=== PATIENT | male | born 1950 | race Caucasian/White ===

== ENCOUNTER → 2018-03-14 11:16 | Outpatient (CLI) | payer OTHER, SELFPAY ==
[2018-03-12 12:58] VITALS: BMI 31.8
--- NOTE | 2018-03-14 12:35 | NEURO ---
NCS and/or EMG Patient Report Ordering Doctor: Leticia Taveras DATE OF SERVICE: 03/14/18 Bethany Torrez is a 68-year-old male who presents for electrodiagnostic testing of the right upper limb. He has neck pain radiating into the right upper limb with numbness in the hand. Electrodiagnostic findings: The right median motor nerve demonstrates prolonged distal latency with normal amplitude and reduced conduction velocity. Right ulnar motor nerve demonstrates normal distal latency and amplitude with reduced conduction across the elbow. Prolonged right median and right ulnar F wave. Prolonged right median sensory latency at the wrist. On needle EMG, the right triceps demonstrate decreased recruitment with the presence of polyphasic motor unit action potentials. No evidence of fibrillations is noted. Testing was technically difficult as the patient had numerous involuntary muscle twitches secondary to his Parkinson's disease. Electrodiagnostic impression: This is an abnormal study in the right upper limb. 1. Electrodiagnostic findings demonstrate right median mononeuropathy. This is consistent with a moderate right carpal tunnel syndrome. 2. Electrodiagnostic findings demonstrate right-sided ulnar neuropathy. This is consistent with a right cubital tunnel syndrome, with a greater than 30% drop in conduction velocity across the elbow. 3. Electrodiagnostic findings demonstrate a chronic right C7 radiculopathy. Clinically, there is muscle atrophy in the right triceps. If there are any further questions, please do not hesitate to contact me.
== END ==
PROVIDERS: Family Provider Family Medicine; PCP Family Medicine; Referring Provider Orthopaedic Surgery; Visit Provider Orthopaedic Surgery
DX: M54.12 Radiculopathy, cervical region (principal)
CPT/HCPCS: 95886; 95910

== ENCOUNTER → 2018-05-08 16:08 | Outpatient (CLI) | payer OTHER, SELFPAY ==
[2018-05-08 15:19] VITALS: BMI 31.8
--- NOTE | 2018-05-08 16:09 | RAD_ITS ---
STUDY: X-RAY - CERVICAL SPINE REASON FOR EXAM: Male, 68 years old. Pain. TECHNIQUE: 5 view(s) of the cervical spine were obtained. COMPARISON: January 26, 2016. FINDINGS: There are degenerative changes of the anterior atlantoaxial articulation. Normal odontoid process. Normal cervical lordosis. There is multi-level endplate spondylosis. There is multi-level degenerative disc disease with multilevel disc space narrowing. There is no evidence of acute fracture or loss of vertebral axial height. There is maintenance of normal alignment. There is no change in alignment with flexion or extension. The soft tissue structures are unremarkable. RAD/Cerv Spine 4 or 5 Views IMPRESSION: Degenerative changes of the cervical spine without fracture or subluxation. There is no evidence of vertebral instability. There is no major interval change. Electronically Signed: Luis Daniel Oreilly DO at 10:41 EDT Tel [phone], Service support ,
== END ==
PROVIDERS: Family Provider Family Medicine; PCP Family Medicine; Referring Provider Orthopaedic Surgery; Visit Provider Orthopaedic Surgery
DX: M54.12 Radiculopathy, cervical region (principal)
CPT/HCPCS: 72050

== ENCOUNTER 2020-03-09 18:40 | Emergency (ER) | payer OTHER, SELFPAY ==
[2018-06-26 15:08] VITALS: BMI 31.8
[2020-03-09 18:40] VITALS: RESP 18
[2020-03-09 18:41] VITALS: BP 176/119; PULSE 99; RESP 18; TEMP 35.3; O2SAT 99; BMI 32.0
--- NOTE | 2020-03-09 18:55 | ED.DCSUM_ITS ---
History of Present Illness Chief Complaint: Disclocation Narrative: This patient is a 70-year-old male who presents with right shoulder pain. He tripped over a snow plow. He fell onto his right elbow and felt a pop in his right shoulder. He has no pain except at the right shoulder. He did not hit his head no loss of consciousness no injury to the chest abdomen back or other extremities. He otherwise denies any recent illness. No prior history of dislocation. Past Medical History - Allergies and Home Meds Allergies/Adverse Reactions: Allergies No Known Allergies Allergy (Verified 05/08/18 15:19) Primary Care Physician: Isaac Hodge DO [COURTESY STAFF PHYSICIAN] - Past Medical History: - - Diabetes, hypertension, hyperlipidemia, Parkinson's disease Smoking Status: Never smoker Review of Systems All systems negative except as indicated General: Denies: Fever Eyes: Denies: Visual changes - bilaterally ENT: Denies: Bilateral ear pain Cardiovascular: Denies: Chest pain Respiratory: Denies: Dyspnea Gastrointestinal: Denies: Nausea, Vomiting, Diarrhea Musculoskeletal: Reports: Extremity Pain Skin: Denies: Rash Neurological: Denies: Headache Hematologic: Denies: Easy bleeding Allergy: Denies: Uticaria Physical Exam Vital Signs/Narrative: Vital Signs Temp Pulse Resp BP Pulse Ox 03/09/20 18:41 95.6 F L 99 18 176/119 H 99 03/09/20 18:40 18 Inital Vital Signs reviewed: Yes General: Well nourished Head: Normocephalic Eyes: EOMI ENT: Moist mucous membranes Neck: Supple Cardiovascular: Regular rate, Regular rhythm Respiratory: No distress, CTA bilaterally Abdomen: Soft, Nontender Extremities: - - Limited painful range of motion of the right shoulder no tenderness along clavicle no tenderness of the right elbow wrist or hand with active full range of motion of the elbow wrist and hand, active full range of motion of the left upper and bilateral lower extremities without pain Skin: Normal color Neurological: Alert, Oriented x3, - - No focal or lateralizing neurological deficit Psychological: Normal affect Diagnostic/Tx/Re-eval Impressions Shoulder X-Ray 03/09/20 19:10 IMPRESSION: Degenerative changes. No acute fracture or dislocation Electronically Signed: Michi Marley MD at 19:56 EST , Service support , 03/09/20 19:10 Shoulder min 2 Views [RAD] Stat - Medical Decision Making 2+ view right shoulder x-ray was obtained. On my interpretation there is a possible acromion fracture. The AC joint appears normal. No shoulder dislocation. This was read by radiology as normal. Still concern for possible acromion injury. Patient was given a sling and referred to orthopedics. He was given a [place] here and a prescription for the same. He was advised on supportive care such as rest ice elevation. Patient understands to return for new or worsening symptoms. The patient was discharged. ED Disposition - Plan for ED Patient: Disposition: Home or Assisted Living Diagnosis: Fracture of acromion of scapula Instructions: ED Fracture, Shoulder Prescriptions: Hydrocodone Bitart/Apap 5-325 [[place] 5MG-325MG] 1 tab PO Q6H PRN PRN 3 Days #10 tab PRN Reason: Pain Prescription Printed Referrals: Isaac Hodge DO [COURTESY STAFF PHYSICIAN] - Rich Barajas DO [STAFF PHYSICIAN] -
--- NOTE | 2020-03-09 19:10 | RAD_ITS ---
STUDY: X-RAY - RIGHT SHOULDER REASON FOR EXAM: Male, 70 years old. POSSIBLE DISLOCATION AFTER TRIPPING OVER SNOW PLOW. TECHNIQUE: 2 view(s) of the shoulder. COMPARISON: None. FINDINGS: Narrowed glenohumeral articulation. Narrowed subacromial space . Narrowed acromioclavicular joint. Normal acromion. Normal humeral head and visualized proximal humerus. The soft tissue structures are unremarkable. Normal visualized pulmonary apex. RAD/Shoulder min 2 Views IMPRESSION: Degenerative changes. No acute fracture or dislocation Electronically Signed: Michi Marley MD at 19:56 EST , Service support ,
[2020-03-09] MEDS: HYDROcodone Bitartrate/Apap 5/325 Tablet PO (20:56)
== END 2020-03-09 20:59 | disposition home or self-care (01) ==
PROVIDERS: Emergency Provider Emergency Medicine; PCP Student in an Organized Health Care Education/Training Program
DX: S42.121A Displaced fracture of acromial process, right shoulder, initial encounter for closed fracture (principal); E11.9 Type 2 diabetes mellitus without complications; I10 Essential (primary) hypertension; E78.5 Hyperlipidemia, unspecified; G20 Parkinson's disease; W01.0XXA Fall on same level from slipping, tripping and stumbling without subsequent striking against object, initial encounter; Y93.89 Activity, other specified; Y92.89 Other specified places as the place of occurrence of the external cause; Y99.8 Other external cause status
CPT/HCPCS: 73030; 99285; A4216

== ENCOUNTER → 2020-05-14 17:30 | Outpatient (CLI) | payer OTHER, SELFPAY ==
--- NOTE | 2020-05-14 17:31 | CT_ITS ---
We are attempting to reach an attending provider to discuss findings. An addendum with communication details will be sent when the communication is complete. STUDY: CT RIGHT SHOULDER REASON FOR EXAM: Right shoulder pain, evaluate acromial fracture. TECHNIQUE: The patient was scanned in a multi detector CT scanner. High resolution transaxial imaging was performed without the administration of intravenous contrast material. Sagittal and coronal images were reconstructed. Individualized dose optimization techniques were used for this CT. COMPARISON: Radiographs 04/21/2020. FINDINGS: There is superior migration of the humeral head abutting the acromion (coronal reconstruction 53) consistent with rotator cuff pathology. Normal glenoid rim. Normal humeral head, neck and tuberosities. There is an osteolytic lesion in the posterior acromion (sagittal reconstructions 47-55) measuring approximately 1.8 cm in AP dimension with pathologic fracture (coronal reconstructions 59-63; sagittal reconstructions 45-49; axial images 8-10). There is also an os acromiale (axial images 8-10). Normal visualized lateral clavicle. There is mild acromioclavicular arthrosis (coronal reconstruction 31). There is a Type I morphology (flat undersurface), with a neutral orientation. There is a pleural-based mass in the lateral right hemithorax (axial images 96, 97), not fully included in the [id number] measuring 3.[address] AP dimension[address] CT/Extremity Upper without Contra IMPRESSION: Osteolytic lesion of the posterior acromion with pathologic fracture. Pleural-based mass in the right hemithorax. Os acromiale. Superior migration of the humeral head consistent with rotator cuff pathology. Mild acromioclavicular arthrosis. Electronically Signed: Michael Sanchez MD at 8:14 EDT Tel , Service support ,
== END ==
PROVIDERS: PCP Student in an Organized Health Care Education/Training Program; Referring Provider Orthopaedic Surgery; Visit Provider Orthopaedic Surgery
DX: S42.124A Nondisplaced fracture of acromial process, right shoulder, initial encounter for closed fracture (principal)
CPT/HCPCS: 73200

== ENCOUNTER → 2020-05-18 15:08 | Outpatient (CLI) | payer OTHER, SELFPAY ==
--- NOTE | 2020-05-18 15:11 | CT_ITS ---
STUDY: CT CHEST WITH CONTRAST REASON FOR EXAM: Male, 70 years old. mass RADIATION DOSAGE (If Supplied By Facility): CTDIvol = ( 29.27 ) mGy, DLP = ( 761.66 ) mGycm TECHNIQUE: Transaxial imaging was performed following intravenous administration of IV 100mL Isovue-300. Individualized dose optimization techniques were used for this CT. COMPARISON: None. FINDINGS: Grossly normal lung volumes. Mild elevation of the left hemidiaphragm. The pleural-based mass described on previous studies appears to be an anterolateral subpleural lipoma measuring approximately 4.1 x 3.9 x 4.3 cm. There is no underlying destructive process of the adjacent ribs. These tend to be of no clinical significance. Normal heart and pericardium. There are calcifications of the coronary arteries. Normal mediastinum. Normal hilar regions. Normal enhanced pulmonary arteries. There is atherosclerotic calcification of the aortic arch with tortuosity and elongation of the aortic arch and descending thoracic aorta. Normal osseous structures. There is no demonstrated abnormality of the visualized upper abdomen. 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 No evidence for acute chest disease. Electronically Signed: Spenser Mcbride MD at 16:18 EDT , Service support ,
[2020-05-18 15:35] LABS: CREATININE FINGERSTICK 1.2 mg/dL (0.70-1.30); EGFR FINGERSTICK > 60.0000 mL/min (>60)
== END ==
PROVIDERS: PCP Student in an Organized Health Care Education/Training Program; Referring Provider Orthopaedic Surgery; Visit Provider Orthopaedic Surgery
DX: S42.124A Nondisplaced fracture of acromial process, right shoulder, initial encounter for closed fracture (principal); R91.8 Other nonspecific abnormal finding of lung field; R93.7 Abnormal findings on diagnostic imaging of other parts of musculoskeletal system; R93.89 Abnormal findings on diagnostic imaging of other specified body structures
CPT/HCPCS: 71260; Q9967

== ENCOUNTER → 2020-06-05 15:12 | Outpatient (CLI) | payer OTHER, SELFPAY ==
--- NOTE | 2020-06-05 15:17 | MRI_ITS ---
STUDY: MRI RIGHT SHOULDER REASON FOR EXAM: Male, 70 years old. pain, lesion, F/U ABNORMAL CT TECHNIQUE: Standardized fat and water weighted pulse sequences were obtained in all 3 orthogonal planes. COMPARISON: CT of the right shoulder dated MAY 14, 2020. Right shoulder x-ray dated April 21, 2020. FINDINGS: Old fracture deformity posterior lateral aspect of the acromium marginated borders as well as some callus formation seen between the fracture fragments which are incompletely united. Mild reactive is present but there is no evidence to suggest an aggressive lytic or blastic process. No cortical erosion is seen to suggest active osteomyelitis. There are massive full-thickness tears of the supraspinatus, infraspinatus, and subscapularis tendons. The humeral head is high riding abutting the undersurface of the acromion. A large joint effusion is present with diffuse synovial liver infiltration. Diffuse enhancement of the synovium is seen on the postcontrast portion of the study. Enhancement of some of the inflamed fluid near the before meals articulation is also present. The long head of the biceps tendon is completely dislocated medially between the glenohumeral articulation and is partially torn. No bone marrow edema is seen in the humeral head or the glenoid. Normal teres minor tendon. There is severe muscular atrophy of the supraspinatus muscle. There is moderate muscular atrophy of the infraspinatus muscle. There is mild muscular atrophy of the subscapularis muscle. Normal teres minor muscle. Normal labrum. Normal capsulo- ligamentous complex. Normal rotator interval. There is moderate osteoarthritis of the acromioclavicular articulations. There is a Type II morphology (curved), with a neutral orientation. Normal visualized coracohumeral and coracoacromial ligaments. Normal quadrilateral space. Normal axillary space. Normal deltoid muscle. Normal trapezius muscle. MRI/Upper Ext Joint Only W/WO Cont IMPRESSION: 1. Massive rotator cuff tears with high riding humeral head abutting the undersurface of the acromion 2. Significant joint effusion 3. Old fracture deformity of the acromion 4. No aggressive process 5. Significant synovitis and inflammation of the joint. No evidence of septic arthritis. Electronically Signed: Everton Mitchell MD at 21:46 EDT , Service support ,
== END ==
PROVIDERS: PCP Student in an Organized Health Care Education/Training Program; Referring Provider Orthopaedic Surgery; Visit Provider Orthopaedic Surgery
DX: M75.91 Shoulder lesion, unspecified, right shoulder (principal); S42.124D Nondisplaced fracture of acromial process, right shoulder, subsequent encounter for fracture with routine healing
CPT/HCPCS: 73223; A9581

== ENCOUNTER → 2020-11-05 17:09 | Outpatient (CLI) | payer OTHER, SELFPAY ==
[2020-11-05 17:10] LABS: Bacteria 0 SEEN /hpf (None Seen); Mucous, Urine 0 SEEN /hpf (<or=2+); Red Blood Cells-Urine 0 SEEN /hpf (0-5); Squamous Epithelial Cells - UA 0 SEEN /hpf (0-5); White Blood Cells 0 SEEN /hpf (0-5)
[2020-11-05 17:44] LABS: Color, Urine Yellow (Yellow); Glucose, Dipstick 1000 mg/dl (Normal); Ketone-Dipstick Negative (Negative); Leukocyte Esterase-Dipstick Negative /ul (Negative); Nitrite-Dipstick Negative (Negative); Occult Blood-Urine Negative /ul (Negative); Protein-Dipstick 30 mg/dl (Negative); Urine Bilirubin Dipstick Negative (Negative); Urine Clarity Clear (Clear); Urine Urobilinogen Normal (Normal)
== END ==
PROVIDERS: PCP Student in an Organized Health Care Education/Training Program; Visit Provider Nurse Practitioner Adult Health
DX: R31.29 Other microscopic hematuria (principal)
CPT/HCPCS: 81001

== ENCOUNTER 2022-10-28 02:28 | Emergency (ER) | payer OTHER, SELFPAY ==
[2022-10-28 02:30] VITALS: BP 188/109; PULSE 76; RESP 20; TEMP 36.4; O2SAT 95; BMI 31.1
--- NOTE | 2022-10-28 02:39 | CT_ITS ---
EXAM: CT CERVICAL SPINE WITHOUT INTRAVENOUS CONTRAST CLINICAL INDICATION: pain, injury TECHNIQUE: Helically acquired images were obtained of the cervical spine without intravenous contrast. 2D reformatted images were reviewed. This CT exam was performed using one or more of the following dose reduction techniques: automated exposure control, adjustment of the mA and/or kV according to patient size, and/or use of iterative reconstruction technique. RADIATION DOSE: CTDIvol = 29.46 mGy, DLP = 645.55 mGy-cm COMPARISON: No relevant prior studies available. FINDINGS: VERTEBRAE: Unremarkable. No fracture. No traumatic subluxation. No discrete lytic or blastic abnormality. Normal alignment. Normal craniocervical junction and cervicothoracic junction. DISCS/SPINAL CANAL/NEURAL FORAMINA: Degenerative changes of the intervertebral discs. No critical stenosis. SOFT TISSUES: Unremarkable. No prevertebral soft tissue swelling. VASCULATURE: Carotid artery calcifications. LYMPH NODES: Unremarkable. No cervical adenopathy. LUNG APICES: Unremarkable as visualized. Clear. CT/Spine Cervical without Contras IMPRESSION: 1. No acute injuries identified involving the cervical spine. 2. Degenerative changes. Electronically Signed: Cam Schroeder MD at 3:32 EDT ,
--- NOTE | 2022-10-28 02:39 | RAD_ITS ---
EXAM: XR RIGHT SHOULDER COMPLETE, 2 OR MORE VIEWS CLINICAL INDICATION: acute on chronic pain, injury TECHNIQUE: Two or more views of the right shoulder. COMPARISON: Right shoulder 04/21/2020 and 04-05 FINDINGS: BONES/JOINTS: Moderate degenerative changes of the glenohumeral joint. Stable appearance of the acromion which may indicate a chronic nonhealed fracture or a normal variant os acromiale. No sclerotic or destructive changes observed. SOFT TISSUES: Unremarkable. No soft tissue swelling or gas. No radiopaque foreign body. RAD/Shoulder min 2 Views IMPRESSION: 1. Moderate degenerative changes of the glenohumeral joint. 2. Stable appearance of the acromion which may indicate a chronic nonhealed fracture or a normal variant os acromiale. Electronically Signed: Cam Schroeder MD at 4:10 EDT ,
--- NOTE | 2022-10-28 02:43 | EX.ED.UPPERE ---
HPI History of Present Illness Chief Complaint: Upper Extremity Injury Informant: patient and spouse/S.O. Narrative Narrative: Patient presents 2:30 AM for pain in the right shoulder and neck that are chronic but worse in the past 5 weeks since an accidental fall. He has Parkinson's. He has a chronic rotator cuff problem/injury in his right shoulder, but was deemed a poor surgical candidate because he has a chronic resting tremor in the right upper extremity. When asked why he presents this morning for this, he states because the pain has gradually gotten worse to the point where he is having trouble sleeping and dealing with it. He states he took a few hits off of someone's medical marijuana tonight because he was desperate for pain control. He has chronic kidney disease and so he has been limiting his ibuprofen intake even though it was helping when he was taking it. [facility] Medical History Diabetes Hypertension Parkinson disease Home Medications cyclobenzaprine 5 mg tablet 5 mg PO TID PRN 03/06/18 [History Last Taken Unknown] glimepiride 2 mg tablet 2 mg PO QAM 03/06/18 [History Last Taken Unknown] carbidopa 25 mg-levodopa 250 mg tablet tab PO 03/10/20 [History Last Taken Unknown] empagliflozin 10 mg tablet (Jardiance) 10 mg PO DAILY 03/10/20 [History Last Taken Unknown] glimepiride 4 mg tablet 4 mg PO DAILY 03/10/20 [History Last Taken Unknown] lisinopril 20 mg-hydrochlorothiazide 25 mg tablet tab PO 03/10/20 [History Last Taken Unknown] rosuvastatin 10 mg tablet 10 mg PO DAILY 03/10/20 [History Last Taken Unknown] tamsulosin 0.4 mg capsule cap PO 03/10/20 [History Last Taken Unknown] diphenhydramine HCl 25 mg tablet 25 mg PO QHS 05/07/20 [History Last Taken Unknown] hydrocodone-acetaminophen 5-325mg 5mg-325mg tablet PO 05/07/20 [History Last Taken Unknown] propranolol 60 mg tablet 60 mg PO BID 05/07/20 [History Last Taken Unknown] diazepam 2 mg tablet (Valium) 2 mg PO BID PRN anxiety #3 tabs 05/19/20 [Rx Last Taken Unknown] oxycodone-acetaminophen 5 mg-325 mg tablet 1 tab PO Q6H PRN PRN Pain 3 days #12 TABLETS 10/28/22 [Rx Last Taken Unknown] Allergy/AdvReac Type Severity Reaction Status Date / Time No Known Allergies Allergy Verified 10/28/22 02:35 Surgical History h/o appendectomy Social History Smoking Status: Never smoker ROS ROS ED Constitutional Constitutional ED: Denies chills or fever(s) Musculoskeletal Musculoskeletal: Reports extremity pain and neck pain Integumentary Denies Abrasions, rash or wounds Neurologic Neurologic: Reports tremor(s); Denies paresthesias or weakness EXAM Physical Exam Const Vital Signs: 10/28/22 02:30 Temperature 97.6 F L Temperature Source Temporal Pulse Rate 76 Respiratory Rate 20 H Blood Pressure 188/109 H Blood Pressure Mean 135 Pulse Ox 95 Oxygen Delivery Method Room Air Positive well nourished and well developed General Appearance ED: well developed and NAD Neck full ROM and supple Neck Narrative: Tender diffusely. No step-off. Full range of motion without apparent difficulty or pain. Back/Spine normal ROM and normal to inspection Extremity Extremity Narrative: Limited range of motion right shoulder due to pain. No deformities. No focal bony tenderness. No acromioclavicular joint tenderness. Tender in the trapezius cervical portion and into the area above the scapular spine. No signs of trauma objectively. Able to perform short arc internal and external rotation at the shoulder without any apparent major difficulty. Neuro oriented x3, no focal motor deficits and no sensory deficits noted Neuro Narrative: Resting tremor right upper extremity Sensorium / Orientation: alert Psych mental status grossly normal and thought process normal Skin no wounds Rashes: no rashes MDM MDM MDM Narrative Medical decision making narrative: Significant other is requesting imaging of his injuries. He went to [place] [facility] but did not have any imaging taken, and this is the second visit to any emergency department in the past [address] of the cervical spine was obtained, I reviewed the images and report which I agree with, negative for anything acute. 4 view x-ray series of the right shoulder does show chronic changes, no acute dislocation, there is a small calcification superolaterally about the greater tuberosity that could be a small old fracture versus calcification at the tendon insertion. Supportive care advised will be offered a sling in addition to analgesics which were given and prescribed. Radiography Diagnostic Testing: Clinical Impression(s) from Imaging Studies Cervical Spine CT 10/28/22 02:39 IMPRESSION: 1. No acute injuries identified involving the cervical spine. 2. Degenerative changes. Electronically Signed: Cam Schroeder MD at 3:32 EDT , Shoulder X-Ray 10/28/22 02:39 IMPRESSION: 1. Moderate degenerative changes of the glenohumeral joint. 2. Stable appearance of the acromion which may indicate a chronic nonhealed fracture or a normal variant os acromiale. Electronically Signed: Cam Schroeder MD at 4:10 EDT , Discharge Plan Triage Chief Complaint: Upper Extremity Injury ED Provider: Wang Nuñez Dx/Rx/DC Orders Clinical Impression: Chronic pain, Acute cervical myofascial strain, Acute pain of right shoulder due to trauma Instructions: ED Neck Sprain or Strain Prescriptions: New oxycodone-acetaminophen [oxycodone-acetaminophen] 5-325 mg tablet 1 tab PO Q6H PRN PRN (Reason: Pain) 3 Days Qty: 12 0RF No Action glimepiride 2 mg tablet 2 mg PO QAM cyclobenzaprine 5 mg tablet 5 mg PO TID PRN glimepiride 4 mg tablet 4 mg PO DAILY Patient Comments: TAKE 1 TABLET BY MOUTH EVERY DAY rosuvastatin 10 mg tablet 10 mg PO DAILY Patient Comments: TAKE 1 TABLET BY MOUTH EVERY DAY lisinopril-hydrochlorothiazide 20-25 mg tablet PO carbidopa-levodopa 25-250 mg tablet PO Jardiance 10 mg tablet 10 mg PO DAILY tamsulosin 0.4 mg capsule PO propranolol 60 mg tablet 60 mg PO BID hydrocodone-acetaminophen 5-325 mg tablet PO diphenhydramine HCl 25 mg tablet 25 mg PO QHS diazepam [Valium] 2 mg tablet 2 mg PO BID PRN (Reason: anxiety) Qty: 3 0RF Rx Instructions: Take 1 tablet 1 hour before MRI. Take another tablet 30 minutes before MRI. Primary Care Provider: Rich Foy Referrals: Rich Foy DO [Primary Care Provider] - 3-5 Days if not improving Disposition Disposition: Home, Self Care Discharge Date/Time: 10/28/22 04:54
[2022-10-28] MEDS: Morphine 4 MG/ML Syringe IM ×2 (02:46→03:52)
[2022-10-28] MEDS: Ondansetron ODT 4 MG Tablet 8 MG PO (02:46)
[2022-10-28] MEDS: Oxycodone/Apap 5/325 Tablet PO (03:52)
== END 2022-10-28 04:54 | disposition home or self-care (01) ==
PROVIDERS: Emergency Provider Emergency Medicine; PCP Student in an Organized Health Care Education/Training Program; Visit Provider Emergency Medicine
DX: S16.1XXA Strain of muscle, fascia and tendon at neck level, initial encounter (principal); G20 Parkinson's disease; E11.22 Type 2 diabetes mellitus with diabetic chronic kidney disease; I12.9 Hypertensive chronic kidney disease with stage 1 through stage 4 chronic kidney disease, or unspecified chronic kidney disease; N18.9 Chronic kidney disease, unspecified; G89.29 Other chronic pain; M25.511 Pain in right shoulder; W19.XXXA Unspecified fall, initial encounter
CPT/HCPCS: 72125; 73030; 96372; 99283

== ENCOUNTER 2022-11-09 10:41 | Emergency (ER) | payer OTHER, SELFPAY ==
[2022-11-09 10:44] VITALS: BP 74/63; PULSE 55; RESP 18; TEMP 36.2; O2SAT 95
--- NOTE | 2022-11-09 11:38 | CT_ITS ---
STUDY: CT BRAIN WITHOUT CONTRAST REASON FOR EXAM: Male, 72 years old. Confusion RADIATION DOSAGE (If Supplied By Facility): CTDIvol = ( 44.99 ) mGy, DLP = ( 863.60 ) mGycm TECHNIQUE: Transaxial CT imaging of the brain was performed without administration of intravenous contrast material. Individualized dose optimization techniques were used for this CT. COMPARISON: None. FINDINGS: Normal soft tissue structures. Normal calvarium. There is moderate cerebral atrophy with widening of the extra-axial spaces and ventricular dilatation. There are areas of decreased attenuation within the white matter tracts of the supratentorial brain, consistent with microvascular disease changes. Normal basal ganglia and thalami. Normal brainstem. Normal cerebellum. There is no intracranial hemorrhage. There are no findings of an acute ischemic infarction. Normal visualized paranasal sinuses. CT/Brain/Head without Contrast IMPRESSION: Chronic involutional changes of the brain. Electronically Signed: Evreton Mitchell MD at 13:22 EDT ,
--- NOTE | 2022-11-09 11:43 | NURSING ---
NO OLD EKG
[2022-11-09 11:52] VITALS: BP 117/74; PULSE 50; RESP 14; O2SAT 94
--- NOTE | 2022-11-09 11:55 | RAD_ITS ---
STUDY: X-RAY CHEST REASON FOR EXAM: Male, 72 years old. cough TECHNIQUE: Single AP portable view of the chest. COMPARISON: None. FINDINGS: There is a round nodular density in the lateral aspect of the right lower lobe measuring 3.86 that should be further evaluated with CT of the chest to determine if this is a mass or an area of round pneumonia/consolidation. The remaining visualized lung mckinley are clear. There is no demonstrated pleural abnormality. Normal size heart. Normal mediastinum and tommie. Normal visualized pulmonary arteries. There is atherosclerotic tortuosity of the aortic arch and descending thoracic aorta. There are diffuse degenerative changes of the visualized thoracic spine. Normal visualized ribs, clavicles, and shoulders. There is no demonstrated abnormality of the visualized soft tissue structures of the upper abdomen. RAD/Chest 1 View (Portable) IMPRESSION: 1. There is a round nodular density in the lateral aspect of the right lower lobe measuring 3.86 that should be further evaluated with CT of the chest to determine if this is a mass or an area of round pneumonia/consolidation. The remaining visualized lung mckinley are clear. Electronically Signed: Everton Mitchell MD at 12:50 EDT ,
--- NOTE | 2022-11-09 11:58 | EDS_ITS ---
HPI History of Present Illness Chief Complaint: Confusion Informant: patient and family Onset/Context/Timing Onset: Days Narrative Narrative: Patient presents with son for increasing confusion and hallucinations. Patient does have a history of Parkinson's and son states they have noticed some increasing memory problems. They have noted increased confusion over the last several days and last night was having some hallucinations which were new. Patient has not had any infectious symptoms. He is noted to be on multiple medications which can cause confusion. Patient is also currently staying with his son as his is out of town. Patient also was noted to have a fall 3 or 4 weeks ago where he struck his head. He was seen in the ER and had a CT scan following this injury and it was unremarkable. [facility] Medical History Diabetes Hypertension Parkinson disease Home Medications carbidopa 25 mg-levodopa 250 mg tablet 2 tab PO BID 03/10/20 [History Last Taken Unknown] empagliflozin 10 mg tablet (Jardiance) 10 mg PO DAILY 03/10/20 [History Last Taken Unknown] glimepiride 4 mg tablet 4 mg PO DAILY 03/10/20 [History Last Taken Unknown] lisinopril 20 mg-hydrochlorothiazide 25 mg tablet 1 tab PO DAILY 03/10/20 [His tory Last Taken Unknown] tamsulosin 0.4 mg capsule 0.4 mg PO Q24H 03/10/20 [History Last Taken Unknown] diphenhydramine HCl 25 mg tablet 25 mg PO QHS 05/07/20 [History Last Taken Unknown] propranolol 60 mg tablet 20 mg PO BID 05/07/20 [History Last Taken Unknown] amitriptyline 25 mg tablet 25 mg PO QHS 11/09/22 [History Last Taken Unknown] cholecalciferol (vitamin D3) 50 mcg (2,000 unit) tablet 50 mcg PO DAILY 11/09/22 [History Last Taken Unknown] empagliflozin 25 mg tablet (Jardiance) 25 mg PO DAILY 11/09/22 [History Last Taken Unknown] gabapentin 100 mg capsule 100 mg PO Q8H 11/09/22 [History Last Taken Unknown] pravastatin 20 mg tablet 20 mg PO DAILY 11/09/22 [History Last Taken Unknown] Allergy/AdvReac Type Severity Reaction Status Date / Time No Known Allergies Allergy Verified 10/28/22 02:35 Surgical History h/o appendectomy Social History Smoking Status: Never smoker ROS ROS ED Constitutional Constitutional ED: Denies chills or fever(s) Eyes Eyes: Denies discharge from eye(s) ENT ENT ED: Denies discharge from eye(s), rhinorrhea or sore throat Cardiovascular Cardiovascular: Denies chest pain or palpitations Respiratory/Chest Respiratory/Chest: Denies cough or dyspnea Gastrointestinal Gastrointestinal: Denies abdominal pain, nausea or vomiting Genitourinary Genitourinary ED: Denies dysuria Musculoskeletal Musculoskeletal: Denies back pain or extremity pain Integumentary Denies Abrasions or rash Neurologic Neurologic: Reports weakness; Denies headache(s) Allergic/Immunologic Allergic/Immunologic ED: Denies lip swelling or urticaria EXAM Physical Exam Const Vital Signs: 11/09/22 10:44 11/09/22 11:52 11/09/22 14:00 Temperature 97.1 F L Temperature Source Temporal Pulse Rate 55 L 50 L Respiratory Rate 18 14 Blood Pressure 74/63 L 117/74 123/62 H Blood Pressure Mean 66 88 81 Pulse Ox 95 94 Oxygen Delivery Method Room Air Room Air 11/09/22 14:10 11/09/22 14:30 Temperature Temperature Source Pulse Rate 52 L 58 L Respiratory Rate 16 21 H Blood Pressure 128/72 H Blood Pressure Mean 89 Pulse Ox 95 82 Oxygen Delivery Method Positive well nourished and well developed General Appearance ED: well developed HEENT Reports normocephalic and head/scalp atraumatic Eyes PERRL and EOMs intact bilaterally Neck supple Chest Wall inspection of chest normal and palpation of chest normal Resp normal respiratory effort and clear to auscultation bilaterally Cardio regular rate and regular rhythm GI non-tender Auscultation: hypoactive bowel sounds Palpation: soft Extremity normal to inspection Neuro Neuro Narrative: A&O x2. Right upper extremity tremor noted consistent with his Parkinson's history. Sensorium / Orientation: alert Psych mental status grossly normal Skin no rashes or lesions noted MDM MDM MDM Narrative Medical decision making narrative: Patient initially hypotensive in triage at 74/63, however in the room patient's blood pressure has been over 100 systolic. Patient placed on equipment monitor phototypesetting. IV fluids initiated. EKG obtained to evaluate for cardiac arrhythmia/ischemia. Labwork obtained to evaluate for leukocytosis, anemia, and electrolyte derangement. Urinalysis obtained to evaluate for infection/hematuria. CT scan of the head obtained to evaluate for any acute abnormality causing patient's change in mentation. History & Record Review Discussion w/independent historian: Patient and Family Lab Data Attestation: I reviewed the patient's lab results. Labs: Laboratory Results - last 24 hr 11/09/22 11/09/22 11:50 12:30 WBC 6.5 RBC 4.78 Hgb 15.1 Hct 46.4 MCV 97.1 H MCH 31.6 MCHC 32.5 RDW Std Deviation 40.1 RDW Coeff of Brant 11.2 L Plt Count 211 MPV 12.1 H Immature Gran % (Auto) 0.500 Neut % (Auto) 68.5 Lymph % (Auto) 14.2 L [place] % (Auto) 11.4 H Eos % (Auto) 4.8 Baso % (Auto) 0.6 Absolute Neuts (auto) 4.5 Absolute Lymphs (auto) 0.92 Nucleated RBC % 0 PT 13.6 INR 1.0 APTT 30.4 Sodium 140 Potassium 3.8 Chloride 103 Carbon Dioxide 33.0 H Anion Gap 4 L BUN 50 H Creatinine 1.50 H Est GFR (MDRD) Af Amer 59 L Est GFR (MDRD) Non-Af 49 L BUN/Creatinine Ratio 33.3 H Glucose 174 H Lactic Acid 1.3 Calcium 9.7 Total Bilirubin 0.80 Direct Bilirubin 0.22 AST 11 L ALT 10 L Alkaline Phosphatase 31 L Troponin I High Sens 6 Total Protein 7.4 Albumin 3.3 Globulin 4.1 Urine Color Yellow Urine Clarity Clear Urine pH 6.0 Ur Specific [place] 1.010 Urine Protein 30 H Urine Glucose (UA) 1000 H Urine Ketones Negative Urine Occult Blood Negative Urine Nitrite Negative Urine Bilirubin Negative Urine Urobilinogen Normal Ur Leukocyte Esterase Negative Urine RBC 0 SEEN Urine WBC 0 SEEN Ur Squamous Epith Cells 0 SEEN Urine Bacteria 0 SEEN Urine Mucus 0 SEEN Radiography Chest X-Ray - ED: 1 View, Read by ED Physician and Chronic Changes Diagnostic Testing: Clinical Impression(s) from Imaging Studies Brain CT 11/09/22 11:38 IMPRESSION: Chronic involutional changes of the brain. Electronically Signed: Everton Mitchell MD at 13:22 EDT Reading Location ID and State: [id number] [facility] , Service support , Chest X-Ray 11/09/22 11:55 IMPRESSION: 1. There is a round nodular density in the lateral aspect of the right lower lobe measuring 3.86 that should be further evaluated with CT of the chest to determine if this is a mass or an area of round pneumonia/consolidation. The remaining visualized lung mckinley are clear. Electronically Signed: Everton Mitchell MD at 12:50 EDT , Chest CT 11/09/22 12:56 IMPRESSION: 1. 3.74 x 2.49 cm fatty nodular lesion which appears to arise from the extrapleural intercostal fat region of the right lower lobe projects into the lateral aspect of the right upper lobe and middle one third region. Suspect focal herniation of extrapleural fat from prior trauma or similar entity. Refer to thoracic surgery for further assessment and evaluation. 2. No intraparenchymal nodules are present in either lung. 3. Small posterior pericardial effusion 4. Minor interstitial thickening/fibrosis is seen in the lung bases. The remaining bilateral lung mckinley are clear. Electronically Signed: Everton Mitchell MD at 14:35 EDT , EKG Initial EKG: Attestation: I personally reviewed and interpreted this EKG as follows: Interpretation: Sinus Bradycardia (Sinus bradycardia at 49 bpm. No acute ischemia.) Treatment and Re-Evaluation :: CBC reveals normal white count at 6.5 with normal hemoglobin of 15.1. No left shift. Chemistry studies reveal a creatinine of 1.50. I do not have prior values to compare to but son does report that he has some kidney problems. Glucose is 174. LFTs are unremarkable. Urinalysis does reveal some glucose but no evidence of acute infection. Portable chest x-ray does show a density in the right lateral chest per my interpretation. Radiology interpretation states this could be a mass or an infiltrate. CT of the chest is recommended. CT scan of the head reveals no acute abnormalities. CT of the chest reveals a fatty nodular lesion that arises from intercostal fat. No evidence of lung nodule, mass, or infiltrate noted. Test results are discussed with patient and son at bedside. Patient is on multiple medications that can cause confusion including amitriptyline, Benadryl, tramadol, and CBD Gummies. I recommended holding these medications to see if his mental status clears. At this time I do not see an infectious cause for his symptoms. Family was advised that if this does not improve his symptoms or they are not able to care for him at home they can return to the emergency room for repeat evaluation and possible admission for placement. Discharge Plan Triage Chief Complaint: Confusion ED Provider: Jeni Mccloud Dx/Rx/DC Orders Clinical Impression: Confusion Instructions: ED Confusion Prescriptions: No Action glimepiride 4 mg tablet 4 mg PO DAILY Patient Comments: TAKE 1 TABLET BY MOUTH EVERY DAY lisinopril-hydrochlorothiazide 20-25 mg tablet 1 tab PO DAILY carbidopa-levodopa 25-250 mg tablet 2 tab PO BID Jardiance 10 mg tablet 10 mg PO DAILY tamsulosin 0.4 mg capsule 0.4 mg PO Q24H propranolol 60 mg tablet 20 mg PO BID diphenhydramine HCl 25 mg tablet 25 mg PO QHS cholecalciferol (vitamin D3) 50 mcg (2,000 unit) tablet 50 mcg PO DAILY Patient Comments: TAKE 1 TABLET BY MOUTH EVERY DAY pravastatin 20 mg tablet 20 mg PO DAILY Patient Comments: TAKE 1 TABLET BY MOUTH EVERY OTHER DAY Jardiance 25 mg tablet 25 mg PO DAILY amitriptyline 25 mg tablet 25 mg PO QHS gabapentin 100 mg capsule 100 mg PO Q8H Patient Comments: TAKE 1 CAPSULE BY MOUTH TWICE A DAY Primary Care Provider: Rich Foy Referrals: Rich Foy DO [Primary Care Provider] - 3-5 Days Disposition Disposition: Home, Self Care
[2022-11-09] MEDS: 0.9% Normal Saline (500mL Bag) 500 ML 1000 ML IV (12:00)
[2022-11-09 12:22] LABS: Absolute Lymphocyte Count 0.92 X10^3/uL (0.83-4.51); Absolute Neutrophil Count 4.5 X10^3/uL (2.0-7.7); Basophil# 0.04 X10^3/uL; Basophil% 0.6 % (0-1); Eosinophil# 0.31 X10^3/uL; Eosinophils% 4.8 % (0-5); Hematocrit 46.4 % (40-54); Hemoglobin 15.1 g/dL (13.0-16.5); Lymphocyte # 0.92 X10^3/ul (0.83-4.51); Lymphocyte % 14.2 % (19-41); Mean Corp Hgb Conc 32.5 g/dL (32-36); Mean Corpuscular Hgb 31.6 pg (27.0-32.0); Mean Corpuscular Volume 97.1 fL (80-94); Mean Platelet Vol. 12.1 fl (6.2-12.0); Monocyte# 0.74 X10^3/uL; Monocyte% 11.4 % (0-10); NRBC Flagged by Analyzer 0 % (0-5); Neutrophil # 4.46 X10^3/uL (2.7-7.7); Neutrophil % 68.5 % (47-70); Platelet Count 211 K/mm3 (150-450); RBC Distribution Width CV 11.2 % (11.6-14.6); RBC Distribution Width SD 40.1 fl (35.1-43.9); Red Blood Count 4.78 M/mm3 (4.6-6.2); White Blood Count 6.5 K/mm3 (4.4-11.0)
[2022-11-09 12:27] LABS: Partial Thromboplast Time 30.4 Seconds (24.1-36.2); Prothrombin Time (Protime)PT. 13.6 SECONDS (11.7-14.9)
[2022-11-09 12:36] LABS: Bacteria 0 SEEN /hpf (None Seen); Mucous, Urine 0 SEEN /hpf (<or=2+); Red Blood Cells-Urine 0 SEEN /hpf (0-5); Squamous Epithelial Cells - UA 0 SEEN /hpf (0-5); White Blood Cells 0 SEEN /hpf (0-5)
[2022-11-09 12:42] LABS: AST(SGOT) 11 U/L (15-37); Alanine Aminotransfer ALT/SGPT 10 U/L (16-61); Albumin, Serum 3.3 g/dL (3.2-5.0); Alkaline Phosphatase 31 U/L (45-117); Anion Gap 4 (5-15); BUN 50 mg/dL (7-18); BUN/Creat Ratio 33.3 RATIO (10-20); Bilirubin, Direct 0.22 mg/dL (0.00-0.30); Calcium,Total 9.7 mg/dL (8.5-10.1); Chloride 103 mmol/L (98-107); EST Glomerular Filtration Rate 49 mL/min (>60); Est Glom Filt Rate - Afr Amer 59 mL/min (>60); Globulin 4.1 g/dL (2.2-4.2); Glucose 174 mg/dL (74-106); Potassium 3.8 mmol/L (3.5-5.1); Protein, Total 7.4 g/dL (6.4-8.2); Sodium Level 140 mmol/L (136-145); Troponin-I HS 6 pg/mL (3.0-78.0)
[2022-11-09 12:42] LABS: Glucose, Dipstick 1000 mg/dl (Normal); Ketone-Dipstick Negative (Negative); Leukocyte Esterase-Dipstick Negative /ul (Negative); Nitrite-Dipstick Negative (Negative); Occult Blood-Urine Negative /ul (Negative); Protein-Dipstick 30 mg/dl (Negative); Urine Bilirubin Dipstick Negative (Negative); Urine Urobilinogen Normal (Normal)
[2022-11-09 12:47] LABS: Color, Urine Yellow (Yellow); Urine Clarity Clear (Clear)
[2022-11-09 12:52] LABS: Lactic Acid 1.3 mmol/L (0.4-1.9)
--- NOTE | 2022-11-09 12:56 | CT_ITS ---
STUDY: CT CHEST WITHOUT CONTRAST REASON FOR EXAM: Male, 72 years old. abnormal cxr RADIATION DOSAGE (If Supplied By Facility): CTDIvol = ( 18.62 ) mGy, DLP = ( 702.64 ) mGycm TECHNIQUE: Transaxial imaging was performed without the administration of intravenous contrast material. Individualized dose optimization techniques were used for this CT. COMPARISON: Chest x-ray dated November 09, 2022 FINDINGS: 3.74 x 2.49 cm fatty nodular lesion which appears to arise from the extrapleural intercostal fat region of the right lower lobe projects into the lateral aspect of the right upper lobe and middle one third region. No intraparenchymal nodules are present in either lung. Minor interstitial thickening/fibrosis is seen in the lung bases. The remaining bilateral lung mckinley are clear. There is no demonstrated pneumonic consolidation on the current exam. No tracheal or endobronchial lesions are seen. There is no demonstrated pleural abnormality. Normal heart size. Small posterior pericardial effusion noted.. There are calcifications of the coronary arteries. Normal mediastinum. Normal hilar regions. Normal unenhanced pulmonary arteries. There is atherosclerotic calcification of the aortic arch with tortuosity and elongation of the aortic arch and descending thoracic aorta. There are multi-level degenerative changes of the thoracic spine. There is no demonstrated acute or significant abnormality of the visualized upper abdomen. Small cortical based lipoma at the lateral aspect and midpole of the left kidney noted. CT/Chest without Contrast IMPRESSION: 1. 3.74 x 2.49 cm fatty nodular lesion which appears to arise from the extrapleural intercostal fat region of the right lower lobe projects into the lateral aspect of the right upper lobe and middle one third region. Suspect focal herniation of extrapleural fat from prior trauma or similar entity. Refer to thoracic surgery for further assessment and evaluation. 2. No intraparenchymal nodules are present in either lung. 3. Small posterior pericardial effusion 4. Minor interstitial thickening/fibrosis is seen in the lung bases. The remaining bilateral lung mckinley are clear. Electronically Signed: Everton Mitchell MD at 14:35 EDT ,
[2022-11-09] MEDS: 0.9% Normal Saline (1000mL) 1,000 ML 150 ML IV (13:44)
[2022-11-09 14:00] VITALS: BP 123/62
[2022-11-09 14:10] VITALS: PULSE 52; RESP 16; O2SAT 95
[2022-11-09 14:30] VITALS: BP 128/72; PULSE 58; RESP 21; O2SAT 82
[2022-11-09 15:09] VITALS: BMI 30.6
[2022-11-09] MEDS: Lidocaine 5% Patch 1 PATCH TOPICAL (15:10)
== END 2022-11-09 15:56 | disposition home or self-care (01) ==
PROVIDERS: Emergency Provider Emergency Medicine; PCP Student in an Organized Health Care Education/Training Program; Visit Provider Emergency Medicine
DX: R41.0 Disorientation, unspecified (principal); G20 Parkinson's disease; E11.9 Type 2 diabetes mellitus without complications; R44.3 Hallucinations, unspecified; I10 Essential (primary) hypertension; Z79.899 Other long term (current) drug therapy
CPT/HCPCS: 70450; 71045; 71250; 80048; 80076; 81001; 83605; 84484; 85025; 85610; 85730; 87040; 87086; 93005; 96360; 96361; 99284; J7030; A4216

== ENCOUNTER 2024-01-30 11:54 | Emergency (ER) | payer MEDICARE, SELFPAY ==
[2024-01-30 11:54] VITALS: BP 122/90; PULSE 70; RESP 20; TEMP 36.3; O2SAT 96; BMI 32.8
--- NOTE | 2024-01-30 12:27 | ED.VIS.LOWEX ---
HPI History of Present Illness Chief Complaint: Lower Extremity Injury Informant: patient and spouse/S.O. Narrative Narrative: 73-year-old diabetic male presenting to the emergency room with redness and pain to the right foot. Patient states that recently he was wondering if his second and third toes were rubbing together. He had his put a Band-Aid over them. Now he notes the foot is more swollen and red the sores are noted in between his second and third toe. He sees a hand binder stripper out of [place] and they see him in [place]. He denies any fevers. [facility] Medical History Parkinson disease Hypertension Diabetes Home Medications ?Medication ?Instructions ?Recorded ?Last Taken ?Type carbidopa 25 mg-levodopa 250 mg 2 tab PO BID 03/10/20 Unknown History tablet empagliflozin 10 mg tablet 10 mg PO DAILY 03/10/20 Unknown History (Jardiance) glimepiride 4 mg tablet 4 mg PO DAILY 03/10/20 Unknown History lisinopril 20 1 tab PO DAILY 03/10/20 Unknown History mg-hydrochlorothiazide 25 mg tablet tamsulosin 0.4 mg capsule 0.4 mg PO Q24H 03/10/20 Unknown History diphenhydramine HCl 25 mg tablet 25 mg PO QHS 05/07/20 Unknown History propranolol 60 mg tablet 20 mg PO BID 05/07/20 Unknown History amitriptyline 25 mg tablet 25 mg PO QHS 11/09/22 Unknown History cholecalciferol (vitamin D3) 50 50 mcg PO DAILY 11/09/22 Unknown History mcg (2,000 unit) tablet empagliflozin 25 mg tablet 25 mg PO DAILY 11/09/22 Unknown History (Jardiance) gabapentin 100 mg capsule 100 mg PO Q8H 11/09/22 Unknown History pravastatin 20 mg tablet 20 mg PO DAILY 11/09/22 Unknown History cephalexin 500 mg capsule 500 mg PO Q6 #40 CAPSULES 01/30/24 Unknown Rx sulfamethoxazole 800 1 tab PO BID #20 TABLETS 01/30/24 Unknown Rx mg-trimethoprim 160 mg tablet Allergy/AdvReac Type Severity Reaction Status Date / Time No Known Allergies Allergy Verified 10/28/22 02:35 Surgical History h/o appendectomy Social History Smoking Status: Never smoker ROS ROS ED Constitutional Constitutional ED: Denies chills, fever(s) or weight loss Eyes Eyes: Denies change in vision or diplopia ENT ENT ED: Denies ear pain, rhinorrhea or sore throat Cardiovascular Cardiovascular: Denies chest pain, orthopnea, palpitations or racing heartbeat Respiratory/Chest Respiratory/Chest: Denies cough, dyspnea or orthopnea Gastrointestinal Gastrointestinal: Denies abdominal pain, diarrhea, nausea or vomiting Genitourinary Genitourinary ED: Denies dysuria, hematuria or urinary frequency Musculoskeletal Musculoskeletal: Reports other Details: See history of present illness ; Denies arthralgias or myalgias Integumentary Reports Abrasions and rash; Denies abscess Neurologic Neurologic: Denies headache(s) or weakness Psychiatric Psychiatric: Denies anxiety, depression, suicidal ideation or suicidal thoughts Endocrine Endocrinology: Denies polydipsia, polyphagia or polyuria Allergic/Immunologic Allergic/Immunologic ED: Denies mouth swelling, tongue swelling or urticaria EXAM Physical Exam Const Vital Signs: 01/30/24 11:54 Temperature 97.4 F L Temperature Source Temporal Pulse Rate 70 Respiratory Rate 20 H Blood Pressure 122/90 H Blood Pressure Mean 100 Pulse Ox 96 Oxygen Delivery Method Room Air Positive well nourished and well developed General Appearance ED: well developed and NAD HEENT Reports normocephalic, head/scalp atraumatic and moist mucous membranes Eyes PERRL and EOMs intact bilaterally Neck no lymphadenopathy, supple and no JVD Resp normal respiratory effort and clear to auscultation bilaterally Cardio regular rate, regular rhythm and no murmurs GI normal to inspection, nondistended, normoactive bowel sounds and non-tender Palpation: soft Back/Spine no CVA tenderness and normal ROM Extremity Extremity Narrative: Dorsum of the foot is erythematous with some slight increased warmth to about the level of the midfoot. Second and third toes are erythematous slightly swollen. There is wet skin breakdown in between the distal portion of the toes of the second and the third digits. There is no lymphangitic streaking. No significant foul smell. General Extremety ED: Negative for edema General Extremity: Negative for edema Neuro oriented x3 and CN's II-XII intact bilaterally Sensorium / Orientation: alert Motor Exam: strength 5/5 throughout Psych mental status grossly normal Mood & Affect: Negative for depressed or tearful Skin no rashes or lesions noted and no wounds MDM MDM MDM Narrative Medical decision making narrative: Differential diagnosis includes but not limited to cellulitis osteomyelitis abscess diabetic ulcer with cellulitis White count 7.274% neutrophils hemoglobin 16.2 platelet count 192. BMP with a BUN of 35 creatinine 1.35 glucose 157. My independent interpretation of plain films of the foot there is no acute fracture or obvious osteomyelitis. No gas in the soft tissue was noted. A wound culture will be obtained. I will place him on both Keflex and Bactrim. I have asked for early follow-up with his hand binder stripper or if unable to do so us or his primary care doctor. He understands that this may progress from require admission. History & Record Review Discussion w/independent historian: Patient and Significant other Lab Data Attestation: I reviewed the patient's lab results. Labs: Laboratory Results - last 24 hr 01/30/24 12:38 WBC 7.2 RBC 5.25 Hgb 16.2 Hct 47.6 MCV 90.7 MCH 30.9 MCHC 34.0 RDW Std Deviation 39.8 RDW Coeff of Brant 12.0 Plt Count 192 MPV 11.1 Immature Gran % (Auto) 0.400 Neut % (Auto) 74.0 H Lymph % (Auto) 13.0 L [place] % (Auto) 7.5 Eos % (Auto) 4.7 Baso % (Auto) 0.4 Absolute Neuts (auto) 5.3 Absolute Lymphs (auto) 0.94 Nucleated RBC % 0 Sodium 139 Potassium 4.0 Chloride 106 Carbon Dioxide 29.0 Anion Gap 4 L BUN 35 H Creatinine 1.35 H Estim Creat Clear Calc 61.45 Est GFR (MDRD) Af Amer 67 Est GFR (MDRD) Non-Af 55 L BUN/Creatinine Ratio 25.9 H Glucose 157 H Calcium 9.4 Radiography Diagnostic Testing: Clinical Impression(s) from Imaging Studies Foot X-Ray 01/30/24 13:04 IMPRESSION: Soft tissue swelling. Vascular calcification. No bony destruction is seen. Calcaneal spur. Electronically Signed: Adelfo Raya MD at 13:29 EST , Discharge Plan Triage Chief Complaint: Lower Extremity Injury ED Provider: Neville Swan Dx/Rx/DC Orders Clinical Impression: Cellulitis in diabetic foot Instructions: ED Cellulitis Prescriptions: New sulfamethoxazole-trimethoprim 800-160 mg tablet 1 tab PO BID Qty: 20 0RF cephalexin 500 mg capsule 500 mg PO Q6 Qty: 40 0RF No Action glimepiride 4 mg tablet 4 mg PO DAILY Patient Comments: TAKE 1 TABLET BY MOUTH EVERY DAY lisinopril-hydrochlorothiazide 20-25 mg tablet 1 tab PO DAILY carbidopa-levodopa 25-250 mg tablet 2 tab PO BID Jardiance 10 mg tablet 10 mg PO DAILY tamsulosin 0.4 mg capsule 0.4 mg PO Q24H propranolol 60 mg tablet 20 mg PO BID diphenhydramine HCl 25 mg tablet 25 mg PO QHS cholecalciferol (vitamin D3) 50 mcg (2,000 unit) tablet 50 mcg PO DAILY Patient Comments: TAKE 1 TABLET BY MOUTH EVERY DAY pravastatin 20 mg tablet 20 mg PO DAILY Patient Comments: TAKE 1 TABLET BY MOUTH EVERY OTHER DAY Jardiance 25 mg tablet 25 mg PO DAILY amitriptyline 25 mg tablet 25 mg PO QHS gabapentin 100 mg capsule 100 mg PO Q8H Patient Comments: TAKE 1 CAPSULE BY MOUTH TWICE A DAY Primary Care Provider: Rich Foy Referrals: Rich Foy DO [Primary Care Provider] - Activity Restrictions/Additional Instructions: I would recommend follow-up with your hand binder stripper later this week. If they cannot see you would recommend PCP follow-up or returning to the emergency department. I do recommend keeping the foot wounds dry except for showers. We took a culture of the wound which should return in about 48 to 72 hours. You are being placed on 2 antibiotics. Print Language: Romanian Disposition Disposition: Home, Self Care Discharge Date/Time: 01/30/24 13:31
[2024-01-30 12:45] LABS: Absolute Lymphocyte Count 0.94 X10^3/uL (0.83-4.51); Absolute Neutrophil Count 5.3 X10^3/uL (2.0-7.7); Basophil# 0.03 X10^3/uL; Basophil% 0.4 % (0-1); Eosinophil# 0.34 X10^3/uL; Eosinophils% 4.7 % (0-5); Hematocrit 47.6 % (40-54); Hemoglobin 16.2 g/dL (13.0-16.5); Lymphocyte # 0.94 X10^3/ul (0.83-4.51); Mean Corpuscular Hgb 30.9 pg (27.0-32.0); Mean Corpuscular Volume 90.7 fL (80-94); Mean Platelet Vol. 11.1 fl (6.2-12.0); Monocyte# 0.54 X10^3/uL; Monocyte% 7.5 % (0-10); NRBC Flagged by Analyzer 0 % (0-5); Neutrophil # 5.33 X10^3/uL (2.7-7.7); Platelet Count 192 K/mm3 (150-450); RBC Distribution Width SD 39.8 fl (35.1-43.9); Red Blood Count 5.25 M/mm3 (4.6-6.2); White Blood Count 7.2 K/mm3 (4.4-11.0)
[2024-01-30 12:55] LABS: Anion Gap 4 (5-15); BUN 35 mg/dL (7-18); BUN/Creat Ratio 25.9 RATIO (10-20); Calcium,Total 9.4 mg/dL (8.5-10.1); Chloride 106 mmol/L (98-107); Creatinine, Serum 1.35 mg/dL (0.70-1.30); EST Glomerular Filtration Rate 55 mL/min (>60); Est Glom Filt Rate - Afr Amer 67 mL/min (>60); Estimated Creatinine Clearance 61.45 ml/min; Glucose 157 mg/dL (74-106); Sodium Level 139 mmol/L (136-145)
--- NOTE | 2024-01-30 13:04 | RAD_ITS ---
STUDY: X-RAY - RIGHT FOOT CLINICAL: Male, 73 years old. Diabetic foot cellulitis wound 2/3 toe distally TECHNIQUE: 3 view(s) of the foot. COMPARISON: None. FINDINGS: There is a plantar calcaneal spur. Normal visualized subtalar, talonavicular, calcaneocuboid, tarsal and tarsometatarsal articulations. Normal metatarsi. There is degenerative arthrosis of the metatarsophalangeal joint of the hallux . Normal tibial and fibular sesamoid bones. Normal interphalangeal joint of the great toe. Normal phalanges of the great toe. Normal second through fifth metatarsophalangeal joints. Normal interphalangeal joints and phalanges of the lesser toes. Soft tissue swelling. Vascular calcification. RAD/Foot min 3 Views IMPRESSION: Soft tissue swelling. Vascular calcification. No bony destruction is seen. Calcaneal spur. Electronically Signed: Adelfo Raya MD at 13:29 EST ,
== END 2024-01-30 13:31 | disposition home or self-care (01) ==
LOC: ED 13:26
PROVIDERS: Emergency Provider Emergency Medicine; PCP Student in an Organized Health Care Education/Training Program; Visit Provider Emergency Medicine
DX: E11.628 Type 2 diabetes mellitus with other skin complications (principal); G20.A1 Parkinson's disease without dyskinesia, without mention of fluctuations; L03.115 Cellulitis of right lower limb; I10 Essential (primary) hypertension; Z79.84 Long term (current) use of oral hypoglycemic drugs; Z79.899 Other long term (current) drug therapy
CPT/HCPCS: 73630; 80048; 85025; 87070; 87077; 87186; 87205; 99282

== ENCOUNTER 2024-03-13 10:30 | Outpatient (RCR) | payer MEDICARE, OTHER, SELFPAY ==
[2024-03-06 09:33] VITALS: BP 118/81; PULSE 67; RESP 18; BMI 30.7
--- NOTE | 2024-03-06 10:06 | HP.PCM_ITS ---
History of Present Illness Date of Service: 03/06/24 Chief Complaint: Right full-thickness wound third digit History of Wound: Chronic full-thickness wound third digit Progress of Wound: Mr. Torrez is a 74-year-old diabetic male presenting to wound care center today after referral from a Dr. Larson who is his post doc fellowship for palliative footcare. The patient has developed a full-thickness wound to the far end of his right third digit. He was seen at the emergency room at [facility] where he was evaluated and treated. He is currently on 100 mg twice daily of doxycycline which has helped his cellulitis. His wound is still present and is using topical mupirocin cream for treatment and dry sterile dressing and using a surgical shoe to ambulate. The patient states that his blood sugar has been up and down his last A1c was around 9% and his blood sugar varies between 100 to 200 mg/dL. He admits that he is not good at regulating his blood sugar. He denies trauma to the toe. Denies constitutional symptoms. Other pedal complaints at this time. [facility] Medical History Parkinson disease Hypertension Diabetes Home Medications ?Medication ?Instructions ?Recorded ?Last Taken ?Type carbidopa 25 mg-levodopa 250 mg 2 tab PO BID 03/10/20 Unknown History tablet empagliflozin 10 mg tablet 10 mg PO DAILY 03/10/20 Unknown History (Jardiance) glimepiride 4 mg tablet 4 mg PO DAILY 03/10/20 Unknown History lisinopril 20 1 tab PO DAILY 03/10/20 Unknown History mg-hydrochlorothiazide 25 mg tablet tamsulosin 0.4 mg capsule 0.4 mg PO Q24H 03/10/20 Unknown History diphenhydramine HCl 25 mg tablet 25 mg PO QHS 05/07/20 Unknown History propranolol 60 mg tablet 20 mg PO BID 05/07/20 Unknown History amitriptyline 25 mg tablet 25 mg PO QHS 11/09/22 Unknown History cholecalciferol (vitamin D3) 50 50 mcg PO DAILY 11/09/22 Unknown History mcg (2,000 unit) tablet empagliflozin 25 mg tablet 25 mg PO DAILY 11/09/22 Unknown History (Jardiance) gabapentin 100 mg capsule 100 mg PO Q8H 11/09/22 Unknown History pravastatin 20 mg tablet 20 mg PO DAILY 11/09/22 Unknown History cephalexin 500 mg capsule 500 mg PO Q6 #40 CAPSULES 01/30/24 Unknown Rx sulfamethoxazole 800 1 tab PO BID #20 TABLETS 01/30/24 Unknown Rx mg-trimethoprim 160 mg tablet Allergy/AdvReac Type Severity Reaction Status Date / Time No Known Allergies Allergy Verified 03/06/24 09:31 Surgical History h/o appendectomy Social History Smoking Status: Never smoker Vital Signs Vital Signs Vital Signs: 03/06/24 09:33 Pulse Rate 67 Respiratory Rate 18 Blood Pressure 118/81 H Blood Pressure Mean 93 Blood Pressure Source Monitor Blood Pressure Position Sitting Blood Pressure Location Left Arm Oxygen Delivery Method Room Air Weight Weight: 99.79 kg Body Mass Index (BMI) 30.7 Physical Exam Narrative Vascular: DP and PT pulses are faintly palpable. CFT is brisk. Skin temperature great is warm to warm from proximal ankles to distal digits to right lower extremity. Nonpitting edema to the right foot. Neurological:. Light touch intact. Protective station is diminished. Patient does respond to painful stimuli. Dermatological: Full-thickness ulceration to the distal third digit measuring 1.2 x 1.5 x 0.1 cm. Negative probe to bone. Negative drainage. Blanchable erythema is noted. Cannot rule out infection at this time. Excisional debridement down to and including subcutaneous tissue with a #15 blade and pickup to the distal full-thickness wound of the third digit right foot. Predebridement measurement was eschar. Postdebridement measurement is 1.2 x 1.5 x 0.1 cm. Musculoskeletal: No pain on palpation to the full-thickness wound. No pain with calf pressure. Debridement Note Debridement Note Debridement Free Text: Excisional debridement down to and including subcutaneous tissue with a #15 blade and pickup to the distal full-thickness wound of the third digit right foot. Predebridement measurement was eschar. Postdebridement measurement is 1.2 x 1.5 x 0.1 cm. Post-Debridement Measurements and Additional Note: Post-Debridement Measurements/Treatment WC - Nurse 1 - General Ulcer Assessment Start: 03/06/24 09:33 Freq: Status: Active Protocol: SERGEY Activity Type Activity Date Activity User E-sign Co-sign Detail Recorded Client Recorded Date Recorded By Document 03/06/24 09:33 [id number] 03/06/24 09:48 KW 03/06/24 09:33 WC - Today's Visit Information Type of service Initial Visit Arrival Mode Ambulatory Accompanied by Patient Identification Verified (Name & Yes ) Finger Stick Blood Sugar(mg/dl) (if 125 indicated): Blood Sugar Stated by Patient Height and Weight Height 5 ft 11 in Weight 99.79 kg Weight in Pounds 220.0 lbs Weight Measurement Method Estimated by Patient Body Mass Index (BMI) 30.7 BMI Classification Obese BSA - Kenisha 2.20 Vital Signs Pulse Rate (60-100) 67 Pulse Location Monitor Respiratory Rate (12-18) 18 Respiratory rate source Observation Oxygen Delivery Method Room Air Blood Pressure (90/60-120/80) 118/81 H Blood Pressure Mean 93 Source Monitor Position Sitting Blood Pressure Location Left Arm History Since Last Visit- (Skip if this is Patient's initial visit) Left Footwear Regular Shoe Right Footwear Surgical Shoe with pressure relief insole Pain Scale: 0-10 Numeric Is Patient Pain Free? No Rt foot -Description Throbbing -Alleviating Factors/Interventions Medication, Medicate when due,Inactivity/ Resting Communication Assessment Preferred language Mozambican Masticator Required No Able to Read Yes Able to Write Yes Communication Tools None Caregiver Communication Skills No Impairment Impairment Right Hearing Abillity Hard of Hearing Left Hearing Abillity Hard of Hearing Visual Assistive Devices Glasses Teaching Assessment Preferences Verbal,Written, Demonstration Barriers to Learning None Readiness To Learn Excellent Willingness to Engage in Self Management High Activies Readiness to Engage in Self Management High Activities Anxiety Level Calm Cooperation Cooperative Perception Coherent Interest in Health Problem Asks Questions Education Importance Acknowledges Need Does Patient Smoke tobacco or other No substances Smoking Status Never smoker Is Patient Diabetic Yes Functional Assessment Recent Decline in Ability to Perform Upper Body Dressing Culture/Zoroastrian/Exhibit Carpenter Cultural/Zoroastrian Needs that may affect No Treatment Plan Would you allow our hospital coordinator volunteer services to No meet you for the purpose of spiritual/ emotional support? Exhibit Carpenter to contact place of spiritism No WC - Nurse 1 - General Ulcer Measurement Start: 03/06/24 09:33 Freq: Status: Active Protocol: Activity Type Activity Date Activity User E-sign Co-sign Detail Recorded Client Recorded Date Recorded By Document 03/06/24 09:33 KW [id number] 03/06/24 09:48 KW 03/06/24 09:33 Wound Center Nurse 1 Right Lateral 2nd Toe -Current Size (cm) - Length 0.1 -Current Size (cm) - Width 0.1 -Current Size (cm) - Depth 0.1 -Total Square Cm 0.01 -Photo Taken No -Tunneling No -Undermining/Tunneling No -Circular Undermining No -Exudate Amt None Present -Wound Margin Indistinct, Non -Visible -Granulation Amt None Present (0 %) -Texture (Mari-wound Skin Appearance) Assessed -Moisture (Mari-wound Skin Appearance) Assessed, Maceration -Color (Mari-wound Skin Appearance) Assessed -Temperature (Mari-wound Skin No Abnormality Appearance) (Pt Warm) -Ulcer Cleansing Rinsed/ Irrigated with Saline -Foul Odor after Cleansing No -Anesthetic Used 4% Lidocaine Solution #1 3rd Right Toe -Combined with other wound No -Current Size (cm) - Length 0.1 -Current Size (cm) - Width 0.1 -Current Size (cm) - Depth 0.1 -Total Square Cm 0.01 -Date of Last Picture (Recall this 03/06/24 field) -Photo Taken Yes -Epithelialization None Present -Tunneling No -Undermining/Tunneling No -Circular Undermining No -Exudate Amt None Present -Wound Margin Distinct, Outline Attached -Necrotic Tissue Type Eschar -Texture (Mari-wound Skin Appearance) Assessed,Callus -Moisture (Mari-wound Skin Appearance) Assessed -Color (Mari-wound Skin Appearance) Assessed -Temperature (Mari-wound Skin No Abnormality Appearance) (Pt Warm) -Tenderness on Palpation (Mari-wound No Skin Appearance) -Ulcer Cleansing Rinsed/ Irrigated with Saline -Foul Odor after Cleansing No -Anesthetic Used 4% Lidocaine Solution -Wound Comment(s) unable to measure due to eschar and callus Lower Limb Edema Present No Right Calf (cm) 37 Right Ankle (cm) 22.5 WC - Nurse 2 - General Ulcer CM Notes Start: 03/06/24 09:33 Freq: Status: Active Protocol: Activity Type Activity Date Activity User E-sign Co-sign Detail Recorded Client Recorded Date Recorded By Document 03/06/24 10:01 DS [id number] 03/06/24 10:02 DS 01/22/25 10:01 Wound Center Nurse 2 Right Lateral 2nd Toe -Time 10:00 -Correct Patient Yes -Correct Side, Site, Position Yes -Correct Procedure Yes -Procedure Performed Yes -Type of Procedure Debridement -Clinical Debridement Subcutaneous -Tissue Removed Subcutaneous -Post Debridement (cm) - Length 1.2 -Post Debridement (cm) - Width 1.5 -Post Debridement (cm) - Depth 0.1 -Total Square (Post) (cm) 1.80 -Area of Debridement (cm) - Length 1.2 -Area of Debridement (cm) - Width 1.5 -Total Square (Area) (cm) 1.80 -Tunneling No -Circular Undermining No -Wound/Ulcer Outcome Not Healed -Ulcer Cleansing Rinsed/ Irrigated with Saline -Foul Odor after Cleansing No -Bioengineered Tissue No -Bleeding Controlled with Pressure -Treatment Response Procedure Tolerated Well -Debridement - Subq, 1st 20sq cm Yes Pain Scale: 0-10 Numeric Is Patient Pain Free? Yes Assessment/Plan Assessment/Plan (1) Non-pressure chronic ulcer of other part of right foot with fat layer exposed: CODE(S): L97.512 - Non-pressure chronic ulcer of other part of right foot with fat layer exposed PLAN: Patient was examined and evaluated. All findings were discussed with the patient. All questions were answered to the patient's satisfaction. Excisional debridement down to and including subcutaneous tissue with a #15 blade and pickup to the distal full-thickness wound of the third digit right foot. Predebridement measurement was eschar. Postdebridement measurement is 1.2 x 1.5 x 0.1 cm. The right foot was wiped clean and patted dry. Betadine paint was applied to the full-thickness wound in webspaces. Dry sterile dressing followed followed by single-layer Tubigrip. Educated the patient and his to stop using the mupirocin cream as it is creating a moist environment for bacteria to grow and they were understanding of this. Patient did receive arterial and venous studies at [facility] and we are waiting for their results. Will order a new x-ray of the right foot to rule out osteomyelitis as this been a chronic wound for a few weeks since he was last seen in the emergency room on 01/30/2024. New culture was taken of the full-thickness wound to rule out infection of polymicrobial organisms. The patient will continue his doxycycline 1 mg twice daily until new cultures return. Follow-up at the wound care center with Dr. Morgan in 1 week. (2) Osteomyelitis of right foot: CODE(S): M86.9 - Osteomyelitis, unspecified QUALIFIERS: Osteomyelitis type: subacute Qualified Code(s): M86.271 - Subacute osteomyelitis, right ankle and foot (3) Pain in right toe(s): CODE(S): M79.674 - Pain in right toe(s) (4) Cellulitis of right foot: CODE(S): L03.115 - Cellulitis of right lower limb (5) Hammer toe of right foot: CODE(S): M20.41 - Other hammer toe(s) (acquired), right foot
--- NOTE | 2024-03-06 10:43 | RAD_ITS ---
EXAM: XR RIGHT FOOT COMPLETE, 3 OR MORE VIEWS CLINICAL INDICATION: OSTEOMYELITIS R 3RD DIGIT TECHNIQUE: Frontal, lateral and oblique views of the right foot. COMPARISON: 01/30/2024 FINDINGS: BONES/JOINTS: Moderate arthrosis of the first metatarsal phalangeal joint and mild arthrosis throughout the interphalangeal joints of the foot. Calcaneal spurs. No acute fracture. No subluxation. Normal alignment. No definite osseous erosive changes to suggest osteomyelitis. SOFT TISSUES: Mild soft tissue swelling in the forefoot. No radiopaque foreign body. VASCULATURE: Vascular calcifications. RAD/Foot min 3 Views IMPRESSION: No definite osseous erosive changes to suggest osteomyelitis. Degenerative changes and soft tissue swelling. Electronically Signed: Dutch Whitt DO at 21:32 EST ,
--- NOTE | 2024-03-07 09:35 | WC ---
PHOTO 03/06/24
[2024-03-13 10:42] VITALS: BP 161/84; PULSE 75; RESP 18; TEMP 35.9; BMI 30.7
--- NOTE | 2024-03-13 11:29 | PCM.WC.PN ---
History of Present Illness Date of Service: 03/13/24 Chief Complaint: Right full-thickness wound third digit History of Wound: Chronic full-thickness wound third digit Progress of Wound: Stable eschar to the distal aspect of the right foot third digit. Subjective Subjective Mr. Torrez is a 74-year-old diabetic male presenting the wound care center today for follow-up evaluation of full-thickness wound to the distal aspect of the right foot third digit. Patient has been doing dressing changes as discussed. He denies any new onset of wounds. He state his wound is stable. He denies drainage. His blood sugars well-controlled. Denies trauma. Denies constitutional symptoms. No other pedal complaints at this time. Objective Data Objective Data Vital Signs: Vital Signs Temp Pulse Resp BP O2 Del Method 96.7 F L 75 18 161/84 H Room Air 03/13/24 10:42 03/13/24 10:42 03/13/24 10:42 03/13/24 10:42 03/06/24 09:33 Oxygen Delivery Method Room Air Weight: 99.79 kg Body Mass Index (BMI) 30.7 Physical Exam Narrative Vascular: DP and PT pulses are faintly palpable. CFT is brisk. Skin temperature great is warm to warm from proximal ankles to distal digits to right lower extremity. Nonpitting edema to the right foot. Neurological:. Light touch intact. Protective station is diminished. Patient does respond to painful stimuli. Dermatological: Evidence of stable eschar to the distal aspect of the right third digit. Negative probe to bone. Negative drainage. No erythema. Musculoskeletal: No pain on palpation to the full-thickness wound. No pain with calf pressure. Debridement Note Debridement Note Post-Debridement Measurements and Additional Note: Post-Debridement Measurements/Treatment [facility] Nurse 1 - General Ulcer Assessment Start: 03/06/24 09:33 Freq: Status: Active Protocol: CESAR.CRISTI Activity Type Activity Date Activity User E-sign Co-sign Detail Recorded Client Recorded Date Recorded By Document 03/06/24 09:33 KW [id number] 03/06/24 09:48 KW Document 03/13/24 10:42 RB [id number] 03/13/24 10:44 RB 03/06/24 03/13/24 09:33 10:42 - Today's Visit Information Type of service Initial Visit Follow-up Visit (Physician/PRINTING SCREEN ASSEMBLER ) Arrival Mode Ambulatory Ambulatory Transfer Assistance None Accompanied by Patient Identification Verified (Name & Yes Yes ) Patient Requires Transmission-Based No Precautions Finger Stick Blood Sugar(mg/dl) (if 125 indicated): Blood Sugar Stated by Patient Height and Weight Height 5 ft 11 in Weight 99.79 kg Weight in Pounds 220.0 lbs Weight Measurement Method Estimated by Patient Body Mass Index (BMI) 30.7 30.7 BMI Classification Obese Obese BSA - Kenisha 2.20 Vital Signs Temperature (97.8 F-99.1 F) 96.7 F L Temperature Source Temporal Pulse Rate (60-100) 67 75 Pulse Location Monitor Monitor Respiratory Rate (12-18) 18 18 Respiratory rate source Observation Observation Oxygen Delivery Method Room Air Blood Pressure (90/60-120/80) 118/81 H 161/84 H Blood Pressure Mean (mm Hg) 93 109 Source Monitor Monitor Position Sitting Semi-Fowlers Blood Pressure Location Left Arm Left Arm History Since Last Visit- (Skip if this is Patient's initial visit) Have you changed medications since your No last visit? Any new allergies or adverse reactions No Had a fall/change in ADL's that may No increase risk of falls Signs or symptoms of abuse and/or No neglect since last visit Have you been in the hospital since your No last visit? Has dressing in place as prescribed Yes Has compression in place as prescribed No Has offloadiing in place as prescribed N/A Experienced any changes in pain level or No management Left Footwear Regular Shoe Regular Shoe Right Footwear Surgical Shoe Regular Shoe with pressure relief insole Pain Scale: 0-10 Numeric Is Patient Pain Free? No Yes Rt foot -Description Throbbing -Alleviating Factors/Interventions Medication, Medicate when due,Inactivity/ Resting Communication Assessment Preferred language Kittitian Life Claims Examiner Required No Able to Read Yes Able to Write Yes Communication Tools None Caregiver Communication Skills No Impairment Impairment Right Hearing Abillity Hard of Hearing Left Hearing Abillity Hard of Hearing Visual Assistive Devices Glasses Teaching Assessment Preferences Verbal,Written, Demonstration Barriers to Learning None Readiness To Learn Excellent Willingness to Engage in Self Management High Activies Readiness to Engage in Self Management High Activities Anxiety Level Calm Cooperation Cooperative Perception Coherent Interest in Health Problem Asks Questions Education Importance Acknowledges Need Does Patient Smoke tobacco or other No substances Smoking Status Never smoker Is Patient Diabetic Yes Functional Assessment Recent Decline in Ability to Perform Upper Body Dressing Culture/Anglican/Berry Picker Machine Operator Cultural/Anglican Needs that may affect No Treatment Plan Would you allow our hospital cash grain grower to No meet you for the purpose of spiritual/ emotional support? Berry Picker Machine Operator to contact place of methodist No WC - Nurse 1 - General Ulcer Measurement Start: 03/06/24 09:33 Freq: Status: Active Protocol: Activity Type Activity Date Activity User E-sign Co-sign Detail Recorded Client Recorded Date Recorded By Document 03/06/24 09:33 KW [id number] 03/06/24 09:48 KW Document 03/13/24 10:42 RB [id number] 03/13/24 10:44 RB 03/06/24 03/13/24 09:33 10:42 Wound Center Nurse 1 #1 3rd Right Toe -Combined with other wound No -Current Size (cm) - Length 0.1 -Current Size (cm) - Width 0.1 -Current Size (cm) - Depth 0.1 -Total Square Cm 0.01 -Date of Last Picture (Recall this 03/06/24 field) -Photo Taken Yes -Epithelialization None Present -Tunneling No -Undermining/Tunneling No -Circular Undermining No -Exudate Amt None Present -Wound Margin Distinct, Outline Attached -Necrotic Tissue Type Eschar -Texture (Mari-wound Skin Appearance) Assessed,Callus -Moisture (Mari-wound Skin Appearance) Assessed -Color (Mari-wound Skin Appearance) Assessed -Temperature (Mari-wound Skin No Abnormality Appearance) (Pt Warm) -Tenderness on Palpation (Mari-wound No Skin Appearance) -Ulcer Cleansing Rinsed/ Irrigated with Saline -Foul Odor after Cleansing No -Anesthetic Used 4% Lidocaine Solution -Wound Comment(s) unable to measure due to eschar and callus Right 3RD Toe -Combined with other wound No -Current Size (cm) - Length 0.1 1.1 -Current Size (cm) - Width 0.1 1.3 -Current Size (cm) - Depth 0.1 0.3 -Total Square Cm 0.01 1.43 -Photo Taken No -Tunneling No No -Undermining/Tunneling No No -Circular Undermining No No -Exudate Amt None Present Small -Exudate Type Serosanguineous -Wound Margin Indistinct, Non Distinct, -Visible Outline Attached -Granulation Amt None Present (0 None Present (0 %) %) -Slough/Fibrin Yes -Necrosis Amt Large (67-100%) -Necrotic Tissue Type Eschar -Structure Exposed N/A -Texture (Mari-wound Skin Appearance) Assessed Assessed -Moisture (Mari-wound Skin Appearance) Assessed, Assessed Maceration -Color (Mari-wound Skin Appearance) Assessed Assessed -Temperature (Mari-wound Skin No Abnormality No Abnormality Appearance) (Pt Warm) (Pt Warm) -Tenderness on Palpation (Mari-wound No Skin Appearance) -Ulcer Cleansing Rinsed/ Wound Cleanser Irrigated with Saline -Foul Odor after Cleansing No No -Anesthetic Used 4% Lidocaine 5% Lidocaine Solution Gel Lower Limb Edema Present No Right Calf (cm) 37 Right Ankle (cm) 22.5 WC - Nurse 2 - General Ulcer CM Notes Start: 03/06/24 09:33 Freq: Status: Active Protocol: Activity Type Activity Date Activity User E-sign Co-sign Detail Recorded Client Recorded Date Recorded By Document 03/06/24 10:01 DS [id number] 03/06/24 10:02 DS Document 03/13/24 10:52 JF [id number] 03/13/24 10:52 03/06/24 03/13/24 10:01 10:52 Wound Center Nurse 2 Right 3RD Toe -Time 10:00 -Correct Patient Yes No -Correct Side, Site, Position Yes No -Correct Procedure Yes No -Procedure Performed Yes No -Type of Procedure Debridement -Clinical Debridement Subcutaneous -Tissue Removed Subcutaneous -Post Debridement (cm) - Length 1.2 -Post Debridement (cm) - Width 1.5 -Post Debridement (cm) - Depth 0.1 -Total Square (Post) (cm) 1.80 -Area of Debridement (cm) - Length 1.2 -Area of Debridement (cm) - Width 1.5 -Total Square (Area) (cm) 1.80 -Tunneling No -Circular Undermining No -Wound/Ulcer Outcome Not Healed Not Healed -Ulcer Cleansing Rinsed/ Irrigated with Saline -Foul Odor after Cleansing No -Bioengineered Tissue No -Bleeding Controlled with Pressure -Treatment Response Procedure Tolerated Well -Debridement - Subq, 1st 20sq cm Yes No Pain Scale: 0-10 Numeric Is Patient Pain Free? Yes Yes CESAR - Nurse 3 - General Ulcer D/C NN Start: 03/06/24 09:33 Freq: Status: Active Protocol: Activity Type Activity Date Activity User E-sign Co-sign Detail Recorded Client Recorded Date Recorded By Document 03/06/24 10:20 [id number] 03/06/24 10:21 Document 03/13/24 10:58 [id number] 03/13/24 10:59 03/06/24 03/13/24 10:20 10:58 Wound Care Center Nurse 3 #1 3rd Right Toe -Primary Dressing Covered/Secured with Dry Gauze Right 3RD Toe -Ulcer Cleansing Betadine swab Rinsed/ Irrigated with Saline -Foul Odor after Cleansing No No -Other Dressing betadine -Primary Dressing Covered/Secured with Dry Gauze & Dry Gauze, Roll Gauze, Secured with Secured with Tape Tape Righty -Lotion applied to leg before No compression wrap -Tubular Bandage Single Layer -Size of Tubigrip Used Size E -Size E ($) 1 Pain Scale: 0-10 Numeric Is Patient Pain Free? Yes Yes WC - Visit Discharge Discharge Condition Stable Stable Ambulatory Status Ambulatory Ambulatory Transportation Private Auto Private Auto Medication Reconcilliation completed & Yes provided to patient/care provider Clinical Summary of Care Provided Yes Assessment/Plan Assessment/Plan (1) Non-pressure chronic ulcer of other part of right foot with fat layer exposed: CODE(S): L97.512 - Non-pressure chronic ulcer of other part of right foot with fat layer exposed PLAN: Patient was examined and evaluated. All findings were discussed with the patient. All questions were answered to the patient's satisfaction. No other debridement was done at this time. The patient's x-ray showed no evidence or concern for osteomyelitis. The patient shows evidence of flexible hammertoe contractures to digits 2, 3, 4 and 5 to the right lower extremity. I educated the patient on treatment and we move forward with an office open tenotomy's to the lesser digits of the right foot. Patient was discussed all surgical options as well as risk and benefits and he is comfortable moving forward with an office procedure. We began authorization through the patient's insurance prior to follow-up in private office. Follow-up at the wound care center with Dr. Morgan in 3 weeks, and follow-up in private office in 1 to 2 weeks for an office procedure. (2) Pain in right toe(s): CODE(S): M79.674 - Pain in right toe(s) (3) Hammer toe of right foot: CODE(S): M20.41 - Other hammer toe(s) (acquired), right foot
== END 2024-03-15 23:59 | disposition home or self-care (01) ==
LOC: WC 10:30
PROVIDERS: PCP Student in an Organized Health Care Education/Training Program; Visit Provider Podiatrist Foot & Ankle Surgery
DX: E11.621 Type 2 diabetes mellitus with foot ulcer (principal); L97.512 Non-pressure chronic ulcer of other part of right foot with fat layer exposed; G20.A1 Parkinson's disease without dyskinesia, without mention of fluctuations; M86.9 Osteomyelitis, unspecified; Z79.84 Long term (current) use of oral hypoglycemic drugs; I10 Essential (primary) hypertension; L03.115 Cellulitis of right lower limb; M20.41 Other hammer toe(s) (acquired), right foot; Z90.79 Acquired absence of other genital organ(s)
CPT/HCPCS: 11042; 73630; 99213; G0463

== ENCOUNTER 2024-04-03 07:59 | Outpatient (RCR) | payer MEDICARE, OTHER, SELFPAY ==
[2024-03-16 02:41] VITALS: BP 161/84; PULSE 75; RESP 18; TEMP 35.9; BMI 30.7
[2024-04-03 08:17] VITALS: BP 135/82; PULSE 80; RESP 18; TEMP 36.2; BMI 30.7
--- NOTE | 2024-04-03 10:19 | PN.PCM_ITS ---
History of Present Illness Date of Service: 04/03/24 Chief Complaint: Right full-thickness wound third digit History of Wound: Chronic full-thickness wound third digit Progress of Wound: Right third digit eschar stable no sign of infection. Subjective Subjective Mr. Torrez is a 74-year-old male presented wound care center follow-up evaluation of full-thickness wound to the distal aspect of the right third digit. They have been doing dressing changes as discussed. His blood sugars well-controlled. He completed all his antibiotics. He will follow-up in the office for an office flexor tenotomy's 2, 3, 4 and 5 of the right foot. Denies trauma. Denies constitutional symptoms. No other pedal complaints at this time. Objective Data Objective Data Vital Signs: Vital Signs Temp Pulse Resp BP O2 Del Method 97.2 F L 80 18 135/82 H Room Air 04/03/24 08:17 04/03/24 08:17 04/03/24 08:17 04/03/24 08:17 04/03/24 08:17 Oxygen Delivery Method Room Air Weight: 99.79 kg Body Mass Index (BMI) 30.7 Physical Exam Narrative Vascular: DP and PT pulses are faintly palpable. CFT is brisk. Skin temperature great is warm to warm from proximal ankles to distal digits to right lower extremity. Nonpitting edema to the right foot. Neurological:. Light touch intact. Protective station is diminished. Patient does respond to painful stimuli. Dermatological: Evidence of stable eschar to the distal aspect of the right third digit. Negative probe to bone. Negative drainage. No erythema. Musculoskeletal: No pain on palpation to the full-thickness wound. No pain with calf pressure. Debridement Note Debridement Note Post-Debridement Measurements and Additional Note: Post-Debridement Measurements/Treatment - Nurse 1 - General Ulcer Assessment Start: 04/03/24 08:15 Freq: Status: Active Protocol: [email or web address].CRISTI Activity Type Activity Date Activity User E-sign Co-sign Detail Recorded Client Recorded Date Recorded By Document 04/03/24 08:17 MELINDA [id number] 04/03/24 08:20 KW 04/03/24 08:17 - Today's Visit Information Type of service Follow-up Visit (Physician/SENIOR ACCOUNTING SPECIALIST ) Arrival Mode Ambulatory Accompanied by Patient Identification Verified (Name & Yes ) Height and Weight Body Mass Index (BMI) 30.7 BMI Classification Obese Vital Signs Temperature (97.8 F-99.1 F) 97.2 F L Temperature Source Temporal Pulse Rate (60-100) 80 Pulse Location Monitor Respiratory Rate (12-18) 18 Respiratory rate source Observation Oxygen Delivery Method Room Air Blood Pressure (90/60-120/80) 135/82 H Blood Pressure Mean (mm Hg) 99 Source Monitor Position Semi-Fowlers Blood Pressure Location Left Arm History Since Last Visit- (Skip if this is Patient's initial visit) Have you changed medications since your No last visit? Any new allergies or adverse reactions No Had a fall/change in ADL's that may No increase risk of falls Signs or symptoms of abuse and/or No neglect since last visit Have you been in the hospital since your No last visit? Has dressing in place as prescribed Yes Has compression in place as prescribed N/A Has offloadiing in place as prescribed Yes Experienced any changes in pain level or No management Left Footwear Regular Shoe Right Footwear Surgical Shoe with pressure relief insole Pain Scale: 0-10 Numeric Is Patient Pain Free? Yes WC - Nurse 1 - General Ulcer Measurement Start: 04/03/24 08:15 Freq: Status: Active Protocol: Activity Type Activity Date Activity User E-sign Co-sign Detail Recorded Client Recorded Date Recorded By Document 04/03/24 08:17 KW [id number] 04/03/24 08:20 KW Edit Result 04/03/24 08:17 KW (1) [id number] 04/03/24 08:22 KW (1) Right 3RD Toe - Current Size (cm) - Length => 0.1 - Current Size (cm) - Width => 0.1 - Current Size (cm) - Depth => 0 - Total Square Cm => 0.01 - Date of Last Picture (Recall this => 04/03/24 field) - Tenderness on Palpation (Mari-wound No => Yes: soreness with Skin Appearance) => touch and walking 04/03/24 08:17 Wound Center Nurse 1 Right 3RD Toe -Current Size (cm) - Length 0.1 -Current Size (cm) - Width 0.1 -Current Size (cm) - Depth 0 -Total Square Cm 0.01 -Date of Last Picture (Recall this 04/03/24 field) -Exudate Amt None Present -Wound Margin Distinct, Outline Attached -Granulation Amt None Present (0 %) -Necrosis Amt Large (67-100%) -Necrotic Tissue Type Eschar -Texture (Mari-wound Skin Appearance) Assessed -Moisture (Mari-wound Skin Appearance) Assessed,Dry/ Scaly -Color (Mari-wound Skin Appearance) Assessed -Temperature (Mari-wound Skin No Abnormality Appearance) (Pt Warm) -Tenderness on Palpation (Mari-wound Yes: soreness Skin Appearance) with touch and walking -Ulcer Cleansing Soap and Water -Foul Odor after Cleansing No -Anesthetic Used 5% Lidocaine Gel - Nurse 2 - General Ulcer CM Notes Start: 04/03/24 08:15 Freq: Status: Active Protocol: Activity Type Activity Date Activity User E-sign Co-sign Detail Recorded Client Recorded Date Recorded By Document 04/03/24 08:37 MAGO [id number] 04/03/24 08:39 MAGO 04/03/24 08:37 Wound Center Nurse 2 -Time 08:37 -Correct Patient No -Correct Side, Site, Position No -Correct Procedure No -Procedure Performed No -Post Debridement (cm) - Length 0 -Post Debridement (cm) - Width 0 -Post Debridement (cm) - Depth 0 -Total Square (Post) (cm) 0 -Area of Debridement (cm) - Length 0 -Area of Debridement (cm) - Width 0 -Total Square (Area) (cm) 0 -Wound/Ulcer Outcome Healed- Epithelialized Pain Scale: 0-10 Numeric Is Patient Pain Free? Yes - Nurse 3 - General Ulcer D/C NN Start: 04/03/24 08:15 Freq: Status: Active Protocol: Activity Type Activity Date Activity User E-sign Co-sign Detail Recorded Client Recorded Date Recorded By Document 04/03/24 08:50 KARYNA [id number] 04/03/24 08:51 KARYNA 04/03/24 08:50 Wound Care Center Nurse 3 Treatment Response Procedure Tolerated Well Pain Scale: 0-10 Numeric Is Patient Pain Free? Yes - Visit Discharge Discharge Condition Stable Ambulatory Status Ambulatory Transportation Private Auto Medication Reconcilliation completed & No provided to patient/care provider Clinical Summary of Care Provided Yes Notes: betadine to 3rd toe covered with gauze and tape Assessment/Plan Assessment/Plan (1) Non-pressure chronic ulcer of other part of right foot with fat layer exposed: CODE(S): L97.512 - Non-pressure chronic ulcer of other part of right foot with fat layer exposed PLAN: Patient was examined and evaluated. All findings were discussed with the patient. All questions were answered to the patient's satisfaction. After evaluation of the patient's dry eschar to the distal aspect of right third digit, the eschar is stable. Will not perform any debridement at this time and let the tissue heal around the area of concern. The patient will follow-up in private office for an office flexor tenotomy's of digits 2, 3, 4 and 5 of the right foot. Risk and benefit discussed with patient great detail. Patient's will schedule appointment for 1 to 2 weeks. Patient will be discharged from the wound care center will continue to follow-up in the office with Dr. Morgan (2) Hammer toe of right foot: CODE(S): M20.41 - Other hammer toe(s) (acquired), right foot
--- NOTE | 2024-04-03 14:38 | WC ---
PHOTO 04/03/24 Right 3rd Toe
== END 2024-04-12 11:01 | disposition home or self-care (01) ==
LOC: WC 07:59
PROVIDERS: PCP Student in an Organized Health Care Education/Training Program; Visit Provider Podiatrist Foot & Ankle Surgery
DX: L97.512 Non-pressure chronic ulcer of other part of right foot with fat layer exposed (principal); M20.41 Other hammer toe(s) (acquired), right foot
CPT/HCPCS: 99213; G0463

== ENCOUNTER → 2024-06-11 | Outpatient (CLI) | payer MEDICARE, OTHER, SELFPAY | END | disposition home or self-care (01) | PROVIDERS: PCP Student in an Organized Health Care Education/Training Program; Referring Provider Podiatrist Foot & Ankle Surgery; Visit Provider Podiatrist Foot & Ankle Surgery | DX: L97.519 Non-pressure chronic ulcer of other part of right foot with unspecified severity (principal) | CPT/HCPCS: 87070; 87077; 87186; 87205 ==

== ENCOUNTER 2024-06-17 20:44 | Emergency (ER) | payer MEDICARE, OTHER, SELFPAY ==
[2024-06-17 20:44] VITALS: BP 122/84; PULSE 84; RESP 18; TEMP 36.7; O2SAT 94; BMI 32.5
[2024-06-17 21:54] VITALS: O2SAT 97
--- NOTE | 2024-06-17 22:13 | CT_ITS ---
PROCEDURE: CHEST WITHOUT CONTRAST 06/17/2024 REASON FOR EXAM: RIGHT LATERAL MID RIB PAIN TECHNIQUE: Chest CT without contrast. Coronal and Sagittal reconstruction series were provided. One or more dose reduction techniques were used (e.g., Automated exposure control, adjustment of the mA and/or kV according to patient size, use of iterative reconstruction technique COMPARISON: CT chest 11/09/2022 FINDINGS: Hardware: None Lymph nodes: No suspicious adenopathy. Heart and Vasculature: Mild cardiomegaly. Moderate coronary artery calcifications. Trace pericardial effusions. Atherosclerotic calcifications of the thoracic aorta. Thoracic aorta and pulmonary arteries have normal contours; noncontrast technique limits evaluation. Coronary Artery Calcifications: Present Lungs and Airways: Central airways are patent without endobronchial lesions. Mild mosaic attenuation, likely infectious/inflammatory etiology. Patchy opacities in the lung bases, likely secondary to atelectasis. Right middle lobe subpleural opacity (series 4 image 70), compatible with a lipoma. No pneumothorax. No pleural effusion. No suspicious pulmonary nodule. Upper Abdomen: Unremarkable. Bones: No acute osseous abnormality. Degenerative changes of the thoracic spine. CT/Chest without Contrast IMPRESSION: No acute findings in the thorax. Reading Location: [facility]
--- NOTE | 2024-06-17 22:15 | EDS_ITS ---
HPI History of Present Illness Chief Complaint: Fall Informant: patient and spouse/S.O. Narrative Narrative: 74-year-old male presenting to the emergency room for the evaluation following a fall. Patient states he was out in his garage and tripped because of the shoe orthosis he has on his right foot from a surgery. He states he fell forward causing abrasions to the right knee and injuring bilateral elbows as well has striking his chest. He notes pain over the posterior lateral mid ribs. He denies any headache. He denies any abdominal symptoms. No significant neck pain. No loss of consciousness. He chronically cannot move the right shoulder very well due to longstanding rotator cuff tear that is reportedly inoperable. notes that she cleansed the wound with soap and water applied hydrogen peroxide as well as bacitracin. [facility] Medical History Parkinson disease Hypertension Diabetes Home Medications ?Medication ?Instructions ?Recorded ?Last Taken ?Type carbidopa 25 mg-levodopa 250 mg 2 tab PO BID 03/10/20 Unknown History tablet empagliflozin 10 mg tablet 10 mg PO DAILY 03/10/20 Unk nown History (Jardiance) glimepiride 4 mg tablet 4 mg PO DAILY 03/10/20 Unkno wn History lisinopril 20 1 tab PO DAILY 03/10/20 Unkn own History mg-hydrochlorothiazide 25 mg tablet tamsulosin 0.4 mg capsule 0.4 mg PO Q24H 03/10/20 Unkn own History propranolol 60 mg tablet 20 mg PO BID 05/07/20 Unknow n History amitriptyline 25 mg tablet 25 mg PO QHS 11/09/22 Unkno wn History cholecalciferol (vitamin D3) 50 50 mcg PO DAILY Unknown History mcg (2,000 unit) tablet empagliflozin 25 mg tablet 25 mg PO DAILY 11/09/22 Unk nown History (Jardiance) gabapentin 100 mg capsule 100 mg PO Q8H 11/09/22 Unkno wn History pravastatin 20 mg tablet 20 mg PO DAILY 11/09/22 Unkn own History doxycycline hyclate 100 mg capsule 100 mg PO BID 2 wechris reynolds #28 caps 03/16/24 Unknown Rx Allergy/AdvReac Type Severity Reaction Status Date / Time No Known Allergies Allergy Verified 06/17/24 20:45 Surgical History History of partial amputation of toe of right foot h/o appendectomy Social History Smoking Status: Never smoker ROS ROS ED Constitutional Constitutional ED: Denies chills, fever(s) or weight loss Eyes Eyes: Denies change in vision or diplopia ENT ENT ED: Denies ear pain, rhinorrhea or sore throat Cardiovascular Cardiovascular: Reports chest pain; Denies orthopnea, palpitations or racing heartbeat Respiratory/Chest Respiratory/Chest: Denies cough, dyspnea or orthopnea Gastrointestinal Gastrointestinal: Denies abdominal pain, diarrhea, nausea or vomiting Genitourinary Genitourinary ED: Denies dysuria, hematuria or urinary frequency Musculoskeletal Musculoskeletal: Reports back pain and other Details: Bilateral elbow pain ; Denies arthralgias or myalgias Integumentary Reports Abrasions; Denies abscess or rash Neurologic Neurologic: Denies headache(s) or weakness Psychiatric Psychiatric: Denies anxiety, depression, suicidal ideation or suicidal thoughts Endocrine Endocrinology: Denies polydipsia, polyphagia or polyuria Allergic/Immunologic Allergic/Immunologic ED: Denies mouth swelling, tongue swelling or urticaria EXAM Physical Exam Const Vital Signs: 06/17/24 20:44 06/17/24 21:54 Temperature 98.1 F Temperature Source Oral Pulse Rate 84 Respiratory Rate 18 Respiratory Effort Normal Non-Labored Respiratory Depth Normal Respiratory Pattern Normal Blood Pressure 122/84 H Blood Pressure Mean 96 Pulse Ox 94 97 Oxygen Delivery Method Room Air Room Air Positive well nourished and well developed General Appearance ED: well developed and NAD HEENT Reports normocephalic, head/scalp atraumatic and moist mucous membranes Eyes PERRL and EOMs intact bilaterally Neck no lymphadenopathy, supple and no JVD Chest Wall Chest Narrative: Tender to palpation just inferior to the right breast anteriorly as well as the associated ribs posteriorly. No subcutaneous emphysema. Ribs moved together as he deep breathes. Resp normal respiratory effort and clear to auscultation bilaterally Cardio regular rate, regular rhythm and no murmurs GI normal to inspection, nondistended, normoactive bowel sounds and non-tender Palpation: soft Back/Spine no CVA tenderness and normal ROM Extremity Extremity Narrative: There are mild contusions and superficial abrasion noted to the posterior lateral bilateral elbows. No obvious bony deformity or dislocation is noted. Neurovascular intact distal to the elbows. No wrist tenderness or deformities noted. Right knee demonstrates no obvious effusion. Extensor mechanism is intact. General Extremety ED: Negative for edema General Extremity: Negative for edema Neuro oriented x3 and CN's II-XII intact bilaterally Sensorium / Orientation: alert Motor Exam: strength 5/5 throughout Psych mental status grossly normal Mood & Affect: Negative for depressed or tearful Skin no rashes or lesions noted and no wounds MDM MDM MDM Narrative Medical decision making narrative: Differential diagnosis includes but not limited to rib fracture pulmonary contusion hemothorax elbow fracture knee fracture abrasion contusion CT of the chest does not demonstrate an obvious fracture hemothorax pneumothorax or contusion. Bilateral elbow films were obtained. My independent inter pretation is no acute fracture. My independent interpretation of the point of the right knee is no acute fracture. Local wound care was performed and discussed with the patient and . Local supportive care at home return if worsening or concerns History & Record Review Discussion w/independent historian: Patient and Significant other Radiography Diagnostic Testing: Clinical Impression(s) from Imaging Studies Chest CT 06/17/24 22:13 IMPRESSION: No acute findings in the thorax. Reading Location: [facility] Elbow X-Ray 06/17/24 23:00 IMPRESSION: No acute findings of both elbows. Reading Location: [facility] Elbow X-Ray 06/17/24 23:00 IMPRESSION: No acute findings of both elbows. Reading Location: [facility] Knee X-Ray 06/17/24 23:00 IMPRESSION: No acute findings. Degenerative changes. Reading Location: [facility] Discharge Plan Triage Chief Complaint: Fall ED Provider: Neville Swan Dx/Rx/DC Orders Clinical Impression: Fall, Chest wall contusion, Contusion of elbow, Abrasion of knee, Contusion of knee Instructions: ED Abrasion, ED Contusion, Upper Extremity, ED Chest Wall Contusion Prescriptions: No Action glimepiride 4 mg tablet 4 mg PO DAILY Patient Comments: TAKE 1 TABLET BY MOUTH EVERY DAY lisinopril-hydrochlorothiazide 20-25 mg tablet 1 tab PO DAILY carbidopa-levodopa 25-250 mg tablet 2 tab PO BID Jardiance 10 mg tablet 10 mg PO DAILY tamsulosin 0.4 mg capsule 0.4 mg PO Q24H propranolol 60 mg tablet 20 mg PO BID cholecalciferol (vitamin D3) 50 mcg (2,000 unit) tablet 50 mcg PO DAILY Patient Comments: TAKE 1 TABLET BY MOUTH EVERY DAY pravastatin 20 mg tablet 20 mg PO DAILY Patient Comments: TAKE 1 TABLET BY MOUTH EVERY OTHER DAY Jardiance 25 mg tablet 25 mg PO DAILY amitriptyline 25 mg tablet 25 mg PO QHS gabapentin 100 mg capsule 100 mg PO Q8H Patient Comments: TAKE 1 CAPSULE BY MOUTH TWICE A DAY doxycycline hyclate 100 mg capsule 100 mg PO BID 14 Days Qty: 28 0RF Primary Care Provider: Rich Foy Referrals: Rich Foy DO [Primary Care Provider] - As Needed Print Language: Lao Disposition Disposition: Home, Self Care
--- NOTE | 2024-06-17 23:00 | RAD_ITS ---
PROCEDURE: ELBOW MIN 3 VIEWS 06/17/2024 REASON FOR EXAM: INJURY TECHNIQUE: 3 view(s) each of the bilateral elbows COMPARISON: None FINDINGS: Left elbow: No acute fracture or dislocation. Joint spaces are maintained. No joint effusion. No significant soft tissue swelling. Right elbow: No acute fracture or dislocation. No joint effusion. No significant soft tissue swelling. RAD/Elbow min 3 Views IMPRESSION: No acute findings of both elbows. Reading Location: [facility]
--- NOTE | 2024-06-17 23:00 | RAD_ITS ---
PROCEDURE: ELBOW MIN 3 VIEWS 06/17/2024 REASON FOR EXAM: INJURY TECHNIQUE: 3 view(s) each of the bilateral elbows COMPARISON: None FINDINGS: Left elbow: No acute fracture or dislocation. Joint spaces are maintained. No joint effusion. No significant soft tissue swelling. Right elbow: No acute fracture or dislocation. No joint effusion. No significant soft tissue swelling. RAD/Elbow min 3 Views IMPRESSION: No acute findings of both elbows. Reading Location: [facility]
--- NOTE | 2024-06-17 23:00 | RAD_ITS ---
PROCEDURE: KNEE 4 OR MORE VIEWS 06/17/2024 REASON FOR EXAM: INJURY TECHNIQUE: 3 view(s) of the right knee COMPARISON: None FINDINGS: No significant joint space narrowing. Moderate chondrocalcinosis. Small marginal osteophytes. No acute fracture or dislocation. Small joint effusion and prepatellar soft tissue swelling. RAD/Knee 4 or More Views IMPRESSION: No acute findings. Degenerative changes. Reading Location: [facility]
[2024-06-18] VITALS: BP 120/76; PULSE 75; RESP 18; TEMP 36.7; O2SAT 98
== END 2024-06-18 00:26 | disposition home or self-care (01) ==
PROVIDERS: Emergency Provider Emergency Medicine; PCP Student in an Organized Health Care Education/Training Program; Visit Provider Emergency Medicine
DX: S20.211A Contusion of right front wall of thorax, initial encounter (principal); G20.A1 Parkinson's disease without dyskinesia, without mention of fluctuations; E11.9 Type 2 diabetes mellitus without complications; S50.01XA Contusion of right elbow, initial encounter; S50.02XA Contusion of left elbow, initial encounter; S50.311A Abrasion of right elbow, initial encounter; S50.312A Abrasion of left elbow, initial encounter; S80.211A Abrasion, right knee, initial encounter; S80.01XA Contusion of right knee, initial encounter; W01.0XXA Fall on same level from slipping, tripping and stumbling without subsequent striking against object, initial encounter; Y92.015 Private garage of single-family (private) house as the place of occurrence of the external cause; I10 Essential (primary) hypertension; M75.101 Unspecified rotator cuff tear or rupture of right shoulder, not specified as traumatic; Z79.84 Long term (current) use of oral hypoglycemic drugs; Z89.421 Acquired absence of other right toe(s); Z79.899 Other long term (current) drug therapy
CPT/HCPCS: 71250; 73080; 73564; 99284

== ENCOUNTER → 2024-09-10 | Outpatient (CLI) | payer MEDICARE, OTHER, SELFPAY | END | disposition home or self-care (01) | LOC: LABSPEC 16:48 | PROVIDERS: PCP Student in an Organized Health Care Education/Training Program; Visit Provider Podiatrist Foot & Ankle Surgery | DX: S91.104A Unspecified open wound of right lesser toe(s) without damage to nail, initial encounter (principal) | CPT/HCPCS: 87070; 87077; 87186; 87205 ==

== ENCOUNTER 2024-10-05 11:34 | Inpatient (IN) | payer MEDICARE, OTHER, SELFPAY ==
[2024-10-05 11:35] VITALS: BP 124/85; PULSE 85; RESP 18; TEMP 37.2; O2SAT 94
[2024-10-05 12:00] VITALS: BMI 35.2
--- NOTE | 2024-10-05 12:01 | RAD_ITS ---
PROCEDURE: FOOT MIN 3 VIEWS 10/05/2024 REASON FOR EXAM: PAIN, CELLULITIS, ALSO FALL/INJURY TECHNIQUE: FOOT MIN 3 VIEWS Laterality: Right FINDINGS: Bones: No acute bony abnormalities. Joints: Unremarkable. Soft tissues: Vascular atherosclerotic calcifications. RAD/Foot min 3 Views IMPRESSION: No acute osseous abnormalities. Reading Location: [id number]
--- NOTE | 2024-10-05 12:01 | RAD_ITS ---
PROCEDURE: ANKLE MIN 3 VIEWS 10/05/2024 REASON FOR EXAM: INJURY/PAIN TECHNIQUE: ANKLE MIN 3 VIEWS Laterality: Right COMPARISON: None FINDINGS: Bones: No acute bony abnormalities. Joints: Unremarkable. The mortise joint is preserved. Soft tissues: Vascular atherosclerotic calcifications. Other: RAD/Ankle min 3 Views IMPRESSION: No acute osseous abnormalities. Reading Location: [id number]
--- NOTE | 2024-10-05 12:03 | EDS_ITS ---
HPI History of Present Illness Chief Complaint: Lower Extremity Injury Informant: patient and spouse/S.O. Narrative Narrative: 74-year-old male with Parkinson's, chronically with poor balance as result, states he had an accidental fall today somehow injuring his right foot and ankle, he cannot tell me anything about the mechanism or how he fell. No prodromal symptoms. He states it was just an accident. Most of the pain since the injury is in his right ankle and posteriorly in the lower leg. The significant other states that he had a debridement his toe by podiatry earlier in the week and has been having redness in the foot prior to the fall. As result they called podiatry and they called doxycycline and then he started taking that 2 days ago but the redness has extended up his legs some. No fevers or chills. Patient was able to stand and get a shower today but he states he is definitely weaker than usual and it is not focal. [facility] Medical History Parkinson disease Hypertension Diabetes Home Medications ?Medication ?Instructions ?Recorded ?Last Taken ?Type carbidopa 25 mg-levodopa 250 mg 2 tab PO BID 03/10/20 Unknown History tablet empagliflozin 10 mg tablet 10 mg PO DAILY 03/10/20 Unk nown History (Jardiance) glimepiride 4 mg tablet 4 mg PO DAILY 03/10/20 Unkno wn History lisinopril 20 1 tab PO DAILY 03/10/20 Unkn own History mg-hydrochlorothiazide 25 mg tablet tamsulosin 0.4 mg capsule 0.4 mg PO Q24H 03/10/20 Unkn own History propranolol 60 mg tablet 20 mg PO BID 05/07/20 Unknow n History amitriptyline 25 mg tablet 25 mg PO QHS 11/09/22 Unkno wn History cholecalciferol (vitamin D3) 50 50 mcg PO DAILY Unknown History mcg (2,000 unit) tablet empagliflozin 25 mg tablet 25 mg PO DAILY 11/09/22 Unk nown History (Jardiance) gabapentin 100 mg capsule 100 mg PO Q8H 11/09/22 Unkno wn History pravastatin 20 mg tablet 20 mg PO DAILY 11/09/22 Unkn own History doxycycline hyclate 100 mg capsule 100 mg PO BID 2 wee ks #28 caps 03/16/24 Unknown Rx Allergy/AdvReac Type Severity Reaction Status Date / Time No Known Allergies Allergy Verified 10/05/24 11:37 Surgical History History of partial amputation of toe of right foot h/o appendectomy Social History Smoking Status: Never smoker ROS ROS ED Constitutional Constitutional ED: Reports weakness; Denies chills or fever(s) Eyes Eyes: Denies change in vision or diplopia ENT ENT ED: Denies rhinorrhea or sore throat Cardiovascular Cardiovascular: Denies chest pain or palpitations Respiratory/Chest Respiratory/Chest: Denies cough or dyspnea Gastrointestinal Gastrointestinal: Denies abdominal pain, diarrhea, nausea or vomiting Genitourinary Genitourinary ED: Denies dysuria or hematuria Musculoskeletal Musculoskeletal: Reports extremity pain; Denies neck pain Integumentary Reports rash and wounds; Denies Abrasions Neurologic Neurologic: Reports as per HPI, abnormal gait and tremor(s); Denies headache(s), paresthesias or weakness Psychiatric Psychiatric: Denies suicidal thoughts EXAM Physical Exam Const Vital Signs: 10/05/24 11:35 Temperature 98.9 F Temperature Source Oral Pulse Rate 85 Respiratory Rate 18 Blood Pressure 124/85 H Blood Pressure Mean 98 Pulse Ox 94 Oxygen Delivery Method Room Air Positive well nourished and well developed General Appearance ED: well developed and NAD HEENT Reports moist mucous membranes normocephalic and atraumatic Eyes PERRL and EOMs intact bilaterally Neck full ROM and supple Resp normal respiratory effort and clear to auscultation bilaterally Cardio regular rate and regular rhythm GI non-tender and non-distended Auscultation: normoactive bowel sounds Palpation: soft Back/Spine normal ROM and normal to inspection General Back: other FROM Extremity normal to inspection Extremity Narrative: Patient has some very mild tenderness in the right midfoot, but nothing distal to that. There is a third toe with a bandage on it, there is no tenderness throughout that or any of the toes but there is mild swelling and hyperemia throughout the entire dorsum of the foot including all of the toes. This extends into the ankle area where he is tender diffusely both medial and lateral malleoli, the calcaneus is nontender but the posterior lower leg soft tissues from the Achilles on Paff the calf is all very tender, there are some erythema no induration, the erythema extends up the medial aspect of the left calf but not beyond. All compartments are soft and nondistended. Limited range of motion of the ankle due to pain. No abscess. General Extremety ED: Yes edema and tenderness; Negative for pulses abnormal General Extremity: edema; Negative for pulses abnormal Neuro oriented x3, no focal motor deficits and no sensory deficits noted Neuro Narrative: Patient has difficulty lifting either leg off the bed himself. Fine resting tremor. Sensorium / Orientation: alert Motor Exam: general weakness Psych mental status grossly normal and thought process normal Skin Skin Narrative: Erythema right foot and lower leg see above. Postoperative debridement distal right toe does not appear grossly infected. Plantar aspect of the foot is unremarkable. No other lesions or abscess. MDM MDM MDM Narrative Medical decision making narrative: Three-view x-ray series of the right ankle is negative for acute fracture, and 2 view x-ray series of the right foot is negative for fracture and negative for subcutaneous emphysema. On reevaluation the erythema is similar to what it was when I first evaluated him. There is no subcutaneous emphysema to suggest necrotizing fasciitis here. He is well-appearing and his vital signs are normal. I empirically gave him a dose of vancomycin. His labs are noted, inflammatory markers are elevated. My suspicion is that this is all cellulitis in addition to maybe an ankle sprain. He is definitely weaker than usual, the cellulitis is gone all the way up to his calf, been on doxycycline for 2 days, I advised admission and further evaluation and treatment. He is reluctantly amenable. Following with Dr. Morgan podiatry. Lab Data Attestation: I reviewed the patient's lab results. Labs: Laboratory Results - last 24 hr 10/05/24 12:30 WBC 10.0 RBC 4.97 Hgb 15.5 Hct 45.3 MCV 91.1 MCH 31.2 MCHC 34.2 RDW Std Deviation 42.4 RDW Coeff of Brant 12.7 Plt Count 170 MPV 11.2 Immature Gran % (Auto) 0.600 Neut % (Auto) 81.8 H Lymph % (Auto) 7.1 L Hidalgo % (Auto) 9.6 Eos % (Auto) 0.7 Baso % (Auto) 0.2 Absolute Neuts (auto) 8.1 H Absolute Lymphs (auto) 0.71 L Nucleated RBC % 0 ESR 37 H Sodium 137 Potassium 3.7 Chloride 96 L Carbon Dioxide 25.8 Anion Gap 16 H BUN 36 H Creatinine 1.57 H Estim Creat Clear Calc 53.99 Est GFR (MDRD) Non-Af 46 L BUN/Creatinine Ratio 22.8 H Glucose 235 H Calcium 9.4 C-React Prot Ext Range 251.00 H Radiography Diagnostic Testing: Clinical Impression(s) from Imaging Studies Ankle X-Ray 10/05/24 12:01 IMPRESSION: No acute osseous abnormalities. Reading Location: [facility] Foot X-Ray 10/05/24 12:01 IMPRESSION: No acute osseous abnormalities. Reading Location: [facility] Management Discussion w/another healthcare provider: Hospitalist Discharge Plan Triage Chief Complaint: Lower Extremity Injury ED Provider: Wang Nuñez Dx/Rx/DC Orders Clinical Impression: Cellulitis of leg, right, Right ankle sprain, Debility, Failure of outpatient treatment Prescriptions: No Action glimepiride 4 mg tablet 4 mg PO DAILY Patient Comments: TAKE 1 TABLET BY MOUTH EVERY DAY lisinopril-hydrochlorothiazide 20-25 mg tablet 1 tab PO DAILY carbidopa-levodopa 25-250 mg tablet 2 tab PO BID Jardiance 10 mg tablet 10 mg PO DAILY tamsulosin 0.4 mg capsule 0.4 mg PO Q24H propranolol 60 mg tablet 20 mg PO BID cholecalciferol (vitamin D3) 50 mcg (2,000 unit) tablet 50 mcg PO DAILY Patient Comments: TAKE 1 TABLET BY MOUTH EVERY DAY pravastatin 20 mg tablet 20 mg PO DAILY Patient Comments: TAKE 1 TABLET BY MOUTH EVERY OTHER DAY Jardiance 25 mg tablet 25 mg PO DAILY amitriptyline 25 mg tablet 25 mg PO QHS gabapentin 100 mg capsule 100 mg PO Q8H Patient Comments: TAKE 1 CAPSULE BY MOUTH TWICE A DAY doxycycline hyclate 100 mg capsule 100 mg PO BID 14 Days Qty: 28 0RF Primary Care Provider: Rich Foy Referrals: Rich Foy DO [Primary Care Provider] - Print Language: Swedish Disposition Disposition: Acute Care [facility]
--- OUTSIDE RECORDS SUMMARY | 2024-10-05 12:12 | XMS RPT_ITS | CCD ---
Author Organization [facility] Care Team Providers Care Relief Captain Name Role Phone ELANA HICKMAN DO Primary Care Physician [phone] Timmy PT, Marcela Unavailable Unavailable HALKO , ELANA Primary Care Unavailable AYAAN ABDULLAHI, DR NAGEL Attending Unavailabl e HALKO , ELANA Attending Unavailable HALKO , ELANA Primary Care Unavailable MARY RASHID-MANUEL FLORES Attending Unavai lable VICK VICK, ELANA Primary Care Unavailable MARIA TERESA ABDULLAHI, HUGH Perez Attending Unavail able HALKAITLYN DO, ELANA Primary Care Unavailable HALKO DO, ELANA Primary Care Unavailable HALKO DO, ELANA Attending Unavailable CHAVEZ DPM, DR LEO Attending Unavailabl e VICK VICK, ELANA Primary Care Unavailable HALKAITLYN VICK, ELANA Attending Unavailable HALKAITLYN VICK, ELANA Primary Care Unavailable Halkaitlyn, Elana Primary Care Unavailable Ahmet Larson Referring Unavailable Jeffy Morgan Attending Unavailable Vick, Elana Primary Care Unavailable Jeffy Morgan Attending Unavailable Jeffy Morgan Referring Unavailable Vick, Elana Primary Care Unavailable Neville Swan Attending Unavailable Neville Swan Attending Unavailable Vick, Elana Primary Care Unavailable Jeffy Morgan Attending Unavailable Halkaitlyn, Elana Primary Care Unavailable Halko, Elana Primary Care Unavailable Ahmet Larson Referring Unavailable Jeffy Morgan Attending Unavailable Vick VICK, Dr. Villanueva Primary Care Provider Eddie DPMauro, Dr. Bardales Attending Provider Eddie DPM, Dr. Bardales Referring Provider Dr. Neville Swan DO Attending Provider Dr. Neville Swan DO Emergency Provider [phone] Allergies Allergy Classification Reported Allergen(s) Allergy Type Date of Onset Reaction(s) Facility (7 sources) HMG-CoA reductase inhibitor; Translations: [statins] Propensity to adverse reactions to drug Muscle pain (finding) [facility] [place] Work Phone: Medications Current Medications Medication Drug Class(es) Dates Sig (Normalized) Sig (Original) acetaminophen 500 mg oral tablet (3 sources) Start: 11-22-2022 acetaminophen 500 mg oral tablet Dose : 1,000 mg = 2 tab(s), Oral, q6hr, 0 Refill(s) Start Date: 11/22/22 Status: Ordered amitriptyline hydrochloride 25 mg oral tablet (2 sources) Tricyclic Antidepressant Start: 11-09-2022 take 1 tablet by mouth at bedtime Amitriptyline 25 mg tablet Active 25 mg PO AT BEDTIME November 09, 2022 12:00am Start: 06-14-2022 amitriptyline 25 mg oral tablet Dose : 50 mg = 2 tab(s), Oral, qHS, start 1 tab at night x 3 nights, then increase to 2 tabs at night, # 60 tab(s), 0 Refill(s), Pharmacy: [facility]/pharmacy #[id number], 180.3, cm, 06/14/22 11:34:00 EDT, Height Start Date: 06/14/22 Status: Ordered carbidopa 25 mg / levodopa 250 mg oral tablet (9 sources) Aromatic Amino Acid Decarboxylation Inhibitor, Aromatic Amino Acid Start: 05-23-2023 End: 11-19-2023 take 1 tablet by mouth twice daily, then take 2 tablets by mouth twice daily carbidopa-levodopa 25 mg-250 mg oral tablet Dose = 2 tab(s), Oral, BID, TAKE 2 TABLETS BY MOUTH TWICE A DAY, # 360 tab(s), 1 Refill(s), Pharmacy: [facility], 177.5, cm, 05/23/23 11:39:00 EDT, Height, kg, 05/23/23 11:39:00 EDT, Dosing Weight Start Date: 05/23/23 Stop Date: 11/19/23 Status: Ordered Start: 01-26-2022 End: 05-21-2023 take 1 tablet by mouth twice daily, then take 2 tablets by mouth twice daily carbidopa-levodopa 25 mg-250 mg oral tablet Dose = 2 tab(s), Oral, BID, TAKE 2 TABLETS BY MOUTH TWICE A DAY, # 360 tab(s), 1 Refill(s), Pharmacy: [facility]/pharmacy #[id number], 180.3, cm, 11/22/22 11:34:00 EDT, Height, kg, 11/22/22 11:34:00 EDT, Dosing Weight Start Date: 11/22/22 Stop Date: 05/21/23 Status: Ordered Start: 03-10-2020 End: 01-16-2022 take 1 tablet by mouth twice daily, then take 2 tablets by mouth twice daily carbidopa-levodopa 25 mg-250 mg oral tablet Dose = 2 tab(s), Oral, BID, TAKE 2 TABLETS BY MOUTH TWICE A DAY, # 360 tab(s), 1 Refill(s), Pharmacy: [facility]/pharmacy #[id number], 180, cm, 07/20/21 8:58:00 EDT, Height, kg, 07/20/21 8:58:00 EDT, Dosing Weight Start Date: 07/20/21 Stop Date: 01/16/22 Status: Ordered Start: 03-10-2020 Carbidopa-Levo dopa Active TABLET PO March 10, 2020 1:00am cholecalciferol 0.05 mg oral tablet (5 sources) Vitamin D Start: 05-23-2023 End: 11-19-2023 cholecalciferol 50 mcg (2000 intl units) oral tablet Dose : 50 mcg = 1 tab(s), Oral, Daily, # 90 tab(s), 1 Refill(s), Pharmacy: [facility], 177.5, cm, 05/23/23 11:39:00 EDT, Height, kg, 05/23/23 11:39:00 EDT, Dosing Weight Start Date: 05/23/23 Stop Date: 11/19/23 Status: Ordered Start: 11-09-2022 take 1 tablet by angelika once daily Cholecalciferol (Vitamin D3) 50 mcg (2,000 unit) tablet Active 50 ug PO DAILY November 09, 2022 12:00am Start: 06-14-2022 End: 05-21-2023 cholecalciferol 50 mcg (2000 intl units) oral tablet Dose : 50 mcg = 1 tab(s), Oral, Daily, # 90 tab(s), 1 Refill(s), Pharmacy: [facility]/pharmacy #[id number], 180.3, cm, 11/22/22 11:34:00 EDT, Height, kg, 11/22/22 11:34:00 EDT, Dosing Weight Start Date: 11/22/22 Stop Date: 05/21/23 Status: Ordered cyclobenzaprine hydrochloride 10 mg oral tablet (9 sources) Muscle Relaxant Start: 05-23-2023 End: 11-19-2023 cyclobenzaprine 10 mg oral tablet Dose : 10 mg = 1 tab(s), Oral, TID, # 90 tab(s), 5 Refill(s), Pharmacy: [facility], 177.5, cm, 05/23/23 11:39:00 EDT, Height, kg, 05/23/23 11:39:00 EDT, Dosing Weight Start Date: 05/23/23 Stop Date: 11/19/23 Status: Ordered Start: 01-26-2022 End: 05-21-2023 cyclobenzaprine 10 mg oral t ablet Dose : 10 mg = 1 tab(s), Oral, TID, # 90 tab(s), 5 Refill(s), Pharmacy: [facility]/pharmacy #[id number], 180.3, cm, 11/22/22 11:34:00 EDT, Height, kg, 11/22/22 11:34:00 EDT, Dosing Weight Start Date: 11/22/22 Stop Date: 05/21/23 Status: Ordered Start: 04-23-2021 End: 01-16-2022 cyclobenzaprine 10 mg oral t ablet Dose : 10 mg = 1 tab(s), Oral, TID, # 90 tab(s), 5 Refill(s), Pharmacy: [facility]/pharmacy #[id number], 180, cm, 07/20/21 8:58:00 EDT, Height, kg, 07/20/21 8:58:00 EDT, Dosing Weight Start Date: 07/20/21 Stop Date: 01/16/22 Status: Ordered Start: 03-06-2018 End: 11-09-2022 take 1 tablet by mouth three times daily as needed Cyclobenzaprine 5 mg tablet Discontinued 5 mg PO THREE TIMES A DAY as needed March 06, 2018 1:00am November 09, 2022 12:07pm DME MISCellaneous (20 sources) Start: 12-18-2020 DME MISCellane ous See Instructions, 7 EA = 7 DEXCOM continuous glucose senosrs, to replace every 2 weeks, for 90 day supply; Dx E11.65, Z79.4, G20, # 7 EA, 3 Refill(s), [id number], 181, cm, 12/15/20 15:23:00 EDT, Height, 106.3, kg, 12/15/20 15:23:00 EDT, Dosing Weight Start Date: 12/18/20 Status: Ordered Start: 12-18-2020 DME MISCellane ous See Instructions, 7 EA = 7 DEXCOM continuous glucose senosrs, to replace every 2 weeks, for 90 day supply; Dx E11.65, Z79.4, G20, # 7 EA, 3 Refill(s), [id number], 181, cm, 12/15/20 15:23:00 EDT, Height, 106.3, kg, 12/15/20 15:23:00 E... Start Date: 12/18/20 Status: Ordered Start: 12-18-2020 DME MISCellane ous See Instructions, 1 EA = DEXCOM continuous glucose methods analyst data processing; Dx E11.65, Z79.4, G20, # 1 EA, 0 Refill(s), Pharmacy: [facility]/pharmacy #[id number], Type 2 diabetes mellitus with hyperglycemia Parkinsons disease, 181, cm, 12/15/20 15:23:00 EDT, Height, 106.3, kg, 12/15/20 15:23:00 EDT, Dosing Weight Start Date: 12/18/20 Status: Ordered Start: 12-18-2020 DME MISCellane ous See Instructions, 1 EA = DEXCOM continuous glucose methods analyst data processing; Dx E11.65, Z79.4, G20, # 1 EA, 0 Refill(s), Pharmacy: [facility]/pharmacy #[id number], Type 2 diabetes mellitus with hyperglycemia Parkinsons disease, 181, cm, 12/15/20 15:23:00 EDT, Height, 106.3, kg,... Start Date: 12/18/20 Status: Ordered Start: 12-18-2020 DME MISCellane ous See Instructions, 1 EA = DEXCOM continuous glucose transmitor; Dx E11.65, Z79.4, G20, # 1 EA, 0 Refill(s), Pharmacy: [facility]/pharmacy #[id number], 181, cm, 12/15/20 15:23:00 EDT, Height, 106.3, kg, 12/15/20 15:23:00 EDT, Dosing Weight Start Date: 12/18/20 Status: Ordered doxycycline hyclate 100 mg oral capsule (1 source) Tetracycline-class Drug Start: 03-16-2024 take 1 capsule by mouth twice daily Doxycycline Hyclate 100 mg capsule Active 100 mg PO TWICE A DAY 28 14 0 March 16, 2024 1:00am empagliflozin 25 mg oral tablet (10 sources) Sodium-Glucose Cotransporter 2 Inhibitor Start: 02-01-2022 End: 11-19-2023 empagliflozin 25 mg oral tablet Dose : 25 mg = 1 tab(s), Oral, qAM, # 90 tab(s), 1 Refill(s), Pharmacy: [facility], 177.5, cm, 05/23/23 11:39:00 EDT, Height, kg, 05/23/23 11:39:00 EDT, Dosing Weight Start Date: 05/23/23 Stop Date: 11/19/23 Status: Ordered Start: 02-18-2021 End: 01-16-2022 empagliflozin 25 mg oral tab let Dose : 25 mg = 1 tab(s), Oral, qAM, # 90 tab(s), 1 Refill(s), Pharmacy: [facility]/pharmacy #[id number], 180, cm, 07/20/21 8:58:00 EDT, Height, kg, 07/20/21 8:58:00 EDT, Dosing Weight Start Date: 07/20/21 Stop Date: 01/16/22 Status: Ordered Start: 03-10-2020 take 1 tablet by angelika th once daily Empagliflozin (Jardiance) 10 mg tablet Active 10 mg PO DAILY March 10, 2020 1:00am glimepiride 4 mg oral tablet (11 sources) Sulfonylurea Start: 05-23-2023 End: 11-19-2023 glimepiride 4 mg oral tablet Dose : 4 mg = 1 tab(s), Oral, qDay, # 90 tab(s), 1 Refill(s), Pharmacy: [facility], Uncontrolled type 2 diabetes mellitus with peripheral neuropathy, 177.5, cm, 05/23/23 11:39:00 EDT, Height, kg, 05/23/23 11:39:00 EDT, Dosing Weight Start Date: 05/23/23 Stop Date: 11/19/23 Status: Ordered Start: 03-10-2020 End: 05-21-2023 glimepiride 4 mg oral tablet Dose : 4 mg = 1 tab(s), Oral, qDay, # 90 tab(s), 1 Refill(s), Pharmacy: [facility]/pharmacy #[id number], Uncontrolled type 2 diabetes mellitus with peripheral neuropathy, 180.3, cm, 11/22/22 11:34:00 EDT, Height, kg, 11/22/22 11:34:00 EDT, Dosing Weight Start Date: 11/22/22 Stop Date: 05/21/23 Status: Ordered Start: 03-06-2018 End: 11-09-2022 take 1 tablet by mouth once daily in the morning Glimepiride 2 mg tablet Discontinued 2 mg PO EVERY MORNING March 06, 2018 1:00am November 09, 2022 12:06pm hydroCHLOROthiazide 25 mg / lisinopril 20 mg oral tablet (9 sources) Thiazide Diuretic, Angiotensin Converting Enzyme Inhibitor Start: 05-23-2023 End: 11-19-2023 take 1 tablet by mouth once daily hydrochlorothiazide-lisinopril 25 mg-20 mg oral tablet Dose = 1 tab(s), Oral, Daily, # 90 tab(s), 1 Refill(s), Pharmacy: [facility], 177.5, cm, 05/23/23 11:39:00 EDT, Height, kg, 05/23/23 11:39:00 EDT, Dosing Weight Start Date: 05/23/23 Stop Date: 11/19/23 Status: Ordered Start: 01-26-2022 End: 05-21-2023 take 1 tablet by mouth once daily hydrochlorothiazide-lisinopril 25 mg-20 mg oral tablet Dose = 1 tab(s), Oral, Daily, # 90 tab(s), 1 Refill(s), [id number], 180.3, cm, 11/22/22 11:34:00 EDT, Height, kg, 11/22/22 11:34:00 EDT, Dosing Weight Start Date: 11/22/22 Stop Date: 05/21/23 Status: Ordered Start: 03-10-2020 End: 01-16-2022 take 1 tablet by mouth once daily hydrochlorothiazide-lisinopril 25 mg-20 mg oral tablet Dose = 1 tab(s), Oral, Daily, # 90 tab(s), 1 Refill(s), [id number], 180, cm, 07/20/21 8:58:00 EDT, Height, kg, 07/20/21 8:58:00 EDT, Dosing Weight Start Date: 07/20/21 Stop Date: 01/16/22 Status: Ordered Start: 03-10-2020 Lisinopril-Hyd rochlorothiazide Active TABLET PO March 10, 2020 1:00am insulin isophane, human 70 unt/ml / insulin, regular, human 30 unt/ml injectable suspension (7 sources) Insulin Start: 09-22-2023 End: 12-21-2023 inject 32 [IU] by subcutaneous injection twice daily HumuLIN 70/30 10 mL vial 32 unit(s), Subcutaneous, BID, in lieu of pcp, # 30 mL, 0 Refill(s), Pharmacy: [facility], 177.5, cm, 05/23/23 11:39:00 EDT, Height, kg, 05/23/23 11:39:00 EDT, Dosing Weight Start Date: 09/22/23 Stop Date: 12/21/23 Status: Ordered Start: 02-01-2022 End: 12-11-2022 inject 32 [IU] by subcutaneous injection twice daily HumuLIN 70/30 10 mL vial 32 unit(s), Subcutaneous, BID, # 30 mL, 1 Refill(s), Pharmacy: [facility]/pharmacy #[id number], 180.3, cm, 06/14/22 11:34:00 EDT, Height, kg, 06/14/22 11:34:00 EDT, Dosing Weight Start Date: 06/14/22 Stop Date: 12/11/22 Status: Ordered Start: 07-20-2021 End: 01-16-2022 inject 32 [IU] by subcutaneous injection twice daily HumuLIN 70/30 10 mL vial 32 unit(s), Subcutaneous, BID, # 30 mL, 1 Refill(s), Pharmacy: [id number], 180, cm, 07/20/21 8:58:00 EDT, Height, kg, 07/20/21 8:58:00 EDT, Dosing Weight Start Date: 07/20/21 Stop Date: 01/16/22 Status: Ordered Start: 02-18-2021 End: 08-17-2021 inject 30 [IU] by subcutaneous injection twice daily HumuLIN 70/30 10 mL vial 30 unit(s), Subcutaneous, BID, # 30 mL, 1 Refill(s), Pharmacy: [facility]/pharmacy #[id number], 180.8, cm, 02/18/21 8:30:00 EST, Height, kg, 02/18/21 8:30:00 EST, Dosing Weight Start Date: 02/18/21 Stop Date: 08/17/21 Status: Ordered omeprazole 20 mg delayed release oral capsule (7 sources) Proton Pump Inhibitor Start: 05-23-2023 End: 11-19-2023 omeprazole 20 mg oral delayed release capsule Dose : 20 mg = 1 cap(s), Oral, qDay, # 90 cap(s), 1 Refill(s), Pharmacy: [facility], 177.5, cm, 05/23/23 11:39:00 EDT, Height, kg, 05/23/23 11:39:00 EDT, Dosing Weight Start Date: 05/23/23 Stop Date: 11/19/23 Status: Ordered Start: 06-14-2022 End: 05-21-2023 omeprazole 20 mg oral delaye d release capsule Dose : 20 mg = 1 cap(s), Oral, qDay, # 90 cap(s), 1 Refill(s), Pharmacy: [facility]/pharmacy #[id number], 180.3, cm, 11/22/22 11:34:00 EDT, Height, kg, 11/22/22 11:34:00 EDT, Dosing Weight Start Date: 11/22/22 Stop Date: 05/21/23 Status: Ordered Start: 02-01-2022 End: 07-31-2022 PriLOSEC OTC 20 mg oral thor yed release tablet Dose : 20 mg = 1 tab(s), Oral, qDayAC, # 90 tab(s), 1 Refill(s), [id number], 180.3, cm, 02/01/22 11:27:00 EST, Height, kg, 02/01/22 11:27:00 EST, Dosing Weight Start Date: 02/01/22 Stop Date: 07/31/22 Status: Ordered Start: 02-18-2021 End: 01-16-2022 PriLOSEC OTC 20 mg oral thor yed release tablet Dose : 20 mg = 1 tab(s), Oral, qDayAC, # 90 tab(s), 1 Refill(s), [id number], 180, cm, 07/20/21 8:58:00 EDT, Height, kg, 07/20/21 8:58:00 EDT, Dosing Weight Start Date: 07/20/21 Stop Date: 01/16/22 Status: Ordered pravastatin sodium 20 mg oral tablet (7 sources) HMG-CoA Reductase Inhibitor Start: 05-23-2023 pravastatin 20 mg or al tablet Dose : 20 mg = 1 tab(s), Oral, Every other day, # 90 tab(s), 1 Refill(s), Pharmacy: [facility], 177.5, cm, 05/23/23 11:39:00 EDT, Height, kg, 05/23/23 11:39:00 EDT, Dosing Weight Start Date: 05/23/23 Status: Ordered Start: 11-09-2022 pravastatin 20 mg oral tablet Dose : 20 mg = 1 tab(s), Oral, Every other day, # 90 tab(s), 1 Refill(s), Pharmacy: [facility]/pharmacy #[id number], 180.3, cm, 11/22/22 11:34:00 EDT, Height, kg, 11/22/22 11:34:00 EDT, Dosing Weight Start Date: 11/22/22 Status: Ordered Start: 06-14-2022 pravastatin 20 mg oral tablet Dose : 20 mg = 1 tab(s), Oral, Every other day, # 90 tab(s), 0 Refill(s), [id number], 180.3, cm, 06/14/22 11:34:00 EDT, Height, kg, 06/14/22 11:34:00 EDT, Dosing Weight Start Date: 06/14/22 Status: Ordered Start: 02-01-2022 pravastatin 20 mg oral tablet Dose : 20 mg = 1 tab(s), Oral, Every other day, # 90 tab(s), 0 Refill(s), Pharmacy: [facility]/pharmacy #[id number], 180.3, cm, 02/01/22 11:27:00 EST, Height, kg, 02/01/22 11:27:00 EST, Dosing Weight Start Date: 02/01/22 Status: Ordered Start: 07-20-2021 pravastatin 20 mg oral tablet Dose : 20 mg = 1 tab(s), Oral, Every other day, # 90 tab(s), 0 Refill(s), [id number], 180, cm, 07/20/21 8:58:00 EDT, Height, kg, 07/20/21 8:58:00 EDT, Dosing Weight Start Date: 07/20/21 Status: Ordered propranolol hydrochloride 20 mg oral tablet (13 sources) beta-Adrenergic Terry Start: 05-23-2023 End: 11-19-2023 propranolol 20 mg oral tablet Dose : 20 mg = 1 tab(s), Oral, BID, # 180 tab(s), 1 Refill(s), Pharmacy: [facility], 177.5, cm, 05/23/23 11:39:00 EDT, Height, kg, 05/23/23 11:39:00 EDT, Dosing Weight Start Date: 05/23/23 Stop Date: 11/19/23 Status: Ordered Start: 02-01-2022 End: 05-21-2023 propranolol 20 mg oral table t Dose : 20 mg = 1 tab(s), Oral, BID, # 180 tab(s), 1 Refill(s), Pharmacy: [facility]/pharmacy #[id number], 180.3, cm, 11/22/22 11:34:00 EDT, Height, kg, 11/22/22 11:34:00 EDT, Dosing Weight Start Date: 11/22/22 Stop Date: 05/21/23 Status: Ordered Start: 02-18-2021 End: 01-16-2022 propranolol 20 mg oral table t Dose : 20 mg = 1 tab(s), Oral, BID, # 180 tab(s), 1 Refill(s), Pharmacy: [facility]/pharmacy #[id number], 180, cm, 07/20/21 8:58:00 EDT, Height, kg, 07/20/21 8:58:00 EDT, Dosing Weight Start Date: 07/20/21 Stop Date: 01/16/22 Status: Ordered Start: 05-07-2020 Propranolol 60 mg tablet Active 20 mg PO TWICE A DAY May 07, 2020 2:39pm Start: 03-10-2020 End: 05-07-2020 Propranolol 60 mg tablet Discontinued {tbl} PO March 10, 2020 1:00am May 07, 2020 2:39pm Start: 03-10-2020 End: 05-07-2020 take 60 mg by mouth twice daily Propranolol Active 60 MG PO TWICE A DAY May 07, 2020 2:39pm Start: 03-06-2018 End: 03-10-2020 take 1 tablet by mouth twice daily Propranolol 10 mg tablet Discontinued 10 mg PO TWICE A DAY March 06, 2018 1:00am March 10, 2020 11:35am tamsulosin hydrochloride 0.4 mg oral capsule (9 sources) alpha-Adrenergic Terry Start: 06-26-2023 End: 12-23-2023 tamsulosin 0.4 mg oral capsule Dose : 0.4 mg = 1 cap(s), Oral, qDay, # 90 cap(s), 1 Refill(s), Pharmacy: [facility], 177.5, cm, 05/23/23 11:39:00 EDT, Height, kg, 05/23/23 11:39:00 EDT, Dosing Weight Start Date: 06/26/23 Stop Date: 12/23/23 Status: Ordered Start: 01-26-2022 End: 05-21-2023 tamsulosin 0.4 mg oral capsu le Dose : 0.4 mg = 1 cap(s), Oral, qDay, # 90 cap(s), 1 Refill(s), [id number], 180.3, cm, 11/22/22 11:34:00 EDT, Height, kg, 11/22/22 11:34:00 EDT, Dosing Weight Start Date: 11/22/22 Stop Date: 05/21/23 Status: Ordered Start: 03-10-2020 End: 01-16-2022 tamsulosin 0.4 mg oral capsu le Dose : 0.4 mg = 1 cap(s), Oral, qDay, # 90 cap(s), 1 Refill(s), [id number], 180, cm, 07/20/21 8:58:00 EDT, Height, kg, 07/20/21 8:58:00 EDT, Dosing Weight Start Date: 07/20/21 Stop Date: 01/16/22 Status: Ordered traMADol hydrochloride 50 mg oral tablet (2 sources) Opioid Agonist Start: 02-03-2023 End: 02-06-2023 traMADol 50 mg oral tablet Dose : 50 mg = 1 tab(s), Oral, q12h, PRN for pain, X 3 day(s), # 10 tab(s), 0 Refill(s), 02/06/23 9:12:00 AM EST, Leg pain, 95.5 Start Date: 02/03/23 Stop Date: 02/06/23 Status: Ordered Start: 07-20-2021 End: 08-19-2021 traMADol 50 mg oral tablet D ose : 50 mg = 1 tab(s), Oral, q8h, PRN for pain, to fill on or after 07/20/21, X 30 day(s), # 90 tab(s), 0 Refill(s), 08/19/21 9:36:00 EDT, Pharmacy: [facility]/pharmacy #[id number], Chronic back pain Lumbar radiculopathy, 180, cm, 07/20/21 8:58:00 EDT, Height, 1... Start Date: 07/20/21 Stop Date: 08/19/21 Status: Ordered Completed/Discontinued Medications Medication Drug Class(es) Dates Sig (Normalized) Sig (Original) acetaminophen 325 mg / HYDROcodone bitartrate 5 mg oral tablet (6 sources) Opioid Agonist Start: 05-07-2020 End: 11-09-2022 Hydrocodone-Acetami nophen 5-325 mg tablet Discontinued NMA PO 0 May 07, 2020 12:00am November 09, 2022 12:06pm Start: 05-07-2020 Hydrocodone-Ac etaminophen Active TAB PO May 07, 2020 12:00am Start: 04-21-2020 End: 04-26-2020 Hydrocodone-Acetaminophen (N orco) 5-325 mg tablet Discontinued 1 {tbl} PO EVERY 6 HOURS as needed for pain 20 5 0 April 21, 2020 April 25, 2020 1:00am April 26, 2020 1:03am stop all other narcotics and tylenol meds Start: 03-09-2020 End: 03-12-2020 Hydrocodone-Acetaminophen 1 TABLET tablet Discontinued 1 {tbl} PO EVERY 6 HOURS NEEDED as needed for Pain 10 3 0 March 09, 2020 March 11, 2020 1:00am March 12, 2020 1:03am Fracture of right shoulder Start: 03-09-2020 End: 03-12-2020 take 1 tablet by mouth every six hours as needed Hydrocodone-Acetaminophen Discontinued 1 TABLET PO EVERY 6 HOURS NEEDED 10 3 March 09, 2020 March 12, 2020 1:03am acetaminophen 325 mg / oxyCODONE hydrochloride 5 mg oral tablet (2 sources) Opioid Agonist Start: 10-28-2022 End: 11-09-2022 Oxycodone-Acetaminophen 5-32 5 mg tablet Discontinued 1 {tbl} PO EVERY 6 HOURS NEEDED as needed for Pain 12 3 0 October 28, 2022 November 09, 2022 12:06pm Acute pain of right shoulder due to trauma Pain in right shoulder Acute pain due to trauma Start: 10-28-2022 take 1 tablet by angelika th every six hours as needed Oxycodone-Acetaminophen Active 1 TABLET PO EVERY 6 HOURS NEEDED 12 3 October 28, 2022 carbidopa 25 mg oral tablet (2 sources) Aromatic Amino Acid Decarboxylation Inhibitor Start: 03-06-2018 End: 03-10-2020 take 1 tablet by mouth every eight hours Carbidopa 25 mg tablet Discontinued 25 mg PO Q8H March 06, 2018 1:00am March 10, 2020 11:34am cephalexin 500 mg oral capsule (1 source) Cephalosporin Antibacterial Start: 01-30-2024 End: 06-17-2024 take 1 capsule by mouth every six hours Cephalexin 500 mg capsule Discontinued 500 mg PO EVERY 6 HOURS 40 0 January 30, 2024 1:00am June 17, 2024 9:52pm diazePAM 2 mg oral tablet (2 sources) Benzodiazepine Start: 05-19-2020 End: 11-09-2022 take 1 tablet by mouth twice daily for anxiety Diazepam (Valium) 2 mg tablet Discontinued 2 mg PO TWICE A DAY as needed for anxiety 3 0 May 19, 2020 12:00am November 09, 2022 12:07pm Claustrophobia Take 1 tablet 1 hour before MRI. Take another tablet 30 minutes before MRI. diphenhydrAMINE hydrochloride 25 mg oral tablet (2 sources) Histamine-1 Receptor Antagonist Start: 05-07-2020 End: 06-17-2024 take 1 tablet by mouth at bedtime Diphenhydramine Hcl 25 mg tablet Discontinued 25 mg PO AT BEDTIME May 07, 2020 12:00am June 17, 2024 9:52pm 0.5 ml dulaglutide 1.5 mg/ml auto-injector (2 sources) GLP-1 Receptor Agonist Start: 03-06-2018 End: 03-10-2020 Dulaglutide (Trulicity) 0.75 mg/0.5 mL pen injector Discontinued 0.75 mg SC EVERY WEEK March 06, 2018 1:00am March 10, 2020 11:34am gabapentin 100 mg oral capsule (5 sources) Anti-epileptic Agent Start: 11-09-2022 End: 08-06-2023 gabapentin 100 mg oral capsule Dose : 100 mg = 1 cap(s), Oral, BID, # 60 cap(s), 0 Refill(s), Pharmacy: [facility], Epilepsy, 177.5, cm, 05/23/23 11:39:00 EDT, Height, 104, kg, 05/23/23 11:39:00 EDT, Dosing Weight Start Date: 07/07/23 Stop Date: 08/06/23 Status: Ordered levothyroxine sodium 0.025 mg oral capsule (2 sources) l-Thyroxine Start: 03-06-2018 End: 03-10-2020 take 1 capsule by mouth once daily Levothyroxine 25 mcg capsule Discontinued 25 ug PO DAILY March 06, 2018 1:00am March 10, 2020 11:35am lisinopril 5 mg oral tablet (2 sources) Angiotensin Converting Enzyme Inhibitor Start: 03-06-2018 End: 03-10-2020 take 1 tablet by mouth once daily Lisinopril 5 mg tablet Discontinued 5 mg PO DAILY March 06, 2018 1:00am March 10, 2020 11:35am rosuvastatin calcium 10 mg oral tablet (4 sources) HMG-CoA Reductase Inhibitor Start: 03-10-2020 End: 11-09-2022 take 1 tablet by mouth once daily Rosuvastatin 10 mg tablet Discontinued 10 mg PO DAILY March 10, 2020 1:00am November 09, 2022 12:04pm Start: 03-06-2018 End: 03-10-2020 take 1 tablet by mouth once daily Rosuvastatin 5 mg tablet Discontinued 5 mg PO DAILY March 06, 2018 1:00am March 10, 2020 11:35am sulfamethoxazole 800 mg / trimethoprim 160 mg oral tablet (1 source) Dihydrofolate Reductase Inhibitor Antibacterial, Sulfonamide Antimicrobial Start: 01-30-2024 End: 06-17-2024 Sulfamethoxazole-Trimethopri m 800-160 mg tablet Discontinued 1 {tbl} PO TWICE A DAY January 30, 2024 1:00am June 17, 2024 9:51pm zolpidem tartrate 5 mg oral tablet (2 sources) gamma-Aminobutyr ic Acid-ergic Agonist Start: 04-21-2020 End: 05-01-2020 take 1 tablet by mouth at bedtime as needed Zolpidem (Ambien) 5 mg tablet Discontinued 5 mg PO AT BEDTIME as needed for insomnia 10 10 April 21, 2020 1:00am April 30, 2020 12:00am May 01, 2020 12:03am take as indicated Problems Active Problems Problem Classification Problem Date Documented Da te Episodic/Chronic Acquired foot deformities (1 source) Hammer toe; Translations: [Other hammer toe(s) (acquired), right foot] 03-06-2024 Chronic Chronic kidney disease (13 sources) Chronic kidney disease stage 3 11-12-2018 Chronic Chronic ulcer of skin (3 sources) Non-pressure chronic ulcer of other part of right foot with unspecified severity; Translations: [Non-pressure chronic ulcer of other part of right foot with fat layer exposed] Onset: 5 03-06-2024 Chronic Diabetes mellitus with complications (20 sources) Neuropathy due to diabetes mellitus; Translations: [Hyperglycemia due to type 2 diabetes mellitus] Onset: 4 11-12-2018 Chronic Diabetes mellitus without complication (6 sources) Type 2 diabetes mellitus 11-12-2018 Chronic Disorders of lipid metabolism (8 sources) Hyperlipidemia 11-12-2018 Chronic E Codes: Fall (1 source) Fall; Translations: [Unspecified fall, initial encounter] 06-26-2024 Episodic Esophageal disorders (8 sources) Gastroesophageal reflux disease 11-12-2018 Chronic Essential hypertension (8 sources) Hypertensive disorder 11-12-2018 Chronic Fracture of upper limb (4 sources) Fracture of acromial process of scapula; Translations: [Displaced fracture of acromial process, unspecified shoulder, initial encounter for closed fracture] 03-10-2020 Episodic Genitourinary symptoms and ill-defined conditions (8 sources) Microalbuminuria 12-25-2018 Episodic Hyperplasia of prostate (8 sources) Benign prostatic hyperplasia 06-12-2019 Chronic Hypertension with complications and secondary hypertension (5 sources) Hypertensive renal disease 06-14-2022 Chronic Infective arthritis and osteomyelitis (except that caused by tuberculosis or sexually transmitted disease) (1 source) Osteomyelitis of right foot; Translations: [Osteomyelitis, unspecified] 03-06-2024 Chronic Inflammatory conditions of male genital organs (8 sources) Epididymitis 02-18-2021 Episodic Nutritional deficiencies (3 sources) Vitamin D deficiency, unspecified; Translations: [Vitamin D deficiency, unspecified] Onset: 4 Chronic Other and unspecified benign neoplasm (8 sources) Lipoma of intrathoracic organs 05-23-2020 Episodic Other connective tissue disease (8 sources) Disorder of rotator cuff 03-17-2020 Episodic Other connective tissue disease (8 sources) Myalgia caused by statin 03-17-2020 Episodic Other connective tissue disease (1 source) Pain in upper limb; Translations: [Pain in arm, unspecified] Onset: 3 Episodic Other connective tissue disease (1 source) Pain in limb; Translations: [Pain in unspecified limb] Onset: 3 Episodic Other connective tissue disease (1 source) Pain in toe; Translations: [Pain in right toe(s)] 03-06-2024 Episodic Other gastrointestinal disorders (1 source) Dysphagia; Translations: [Dysphagia, unspecified] Onset: 3 Episodic Other injuries and conditions due to external causes (7 sources) At risk for falls 07-20-2021 Episodic Other lower respiratory disease (1 source) Pleurodynia; Translations: [Pleurodynia] Onset: 5 Episodic Other male genital disorders (7 sources) Disorder of male genital organ 07-20-2021 Episodic Other nervous system disorders (2 sources) Chronic pain; Translations: [Other chronic pain] 10-28-2022 Chronic Other non-traumatic joint disorders (2 sources) Pain in right shoulder; Translations: [Acute pain of right shoulder due to trauma] 10-28-2022 Episodic Other nutritional; endocrine; and metabolic disorders (6 sources) Obesity 11-12-2018 Chronic Other nutritional; endocrine; and metabolic disorders (3 sources) Body mass index 30+ - obesity 07-20-2021 Chronic Other nutritional; endocrine; and metabolic disorders (2 sources) Metabolic syndrome X 05-23-2023 Chronic Other nutritional; endocrine; and metabolic disorders (2 sources) Overweight 11-22-2022 Episodic Other nutritional; endocrine; and metabolic disorders (2 sources) Overweight in adulthood with body mass index of 25 or more but less than 30 11-22-2022 Episodic Other screening for suspected conditions (not mental disorders or infectious disease) (4 sources) Viral screening status; Translations: [Elevated prostate specific antigen [PSA]] Onset: 4 09-14-2020 Episodic Paralysis (7 sources) Monoparesis - leg 07-20-2021 Chronic Parkinson`s disease (8 sources) Parkinson's disease 11-12-2018 Chronic Peripheral and visceral atherosclerosis (7 sources) Atherosclerosis of aorta; Translations: [Peripheral vascular disease] 06-14-2022 Chronic Residual codes; unclassified (8 sources) Chronic back pain 11-12-2018 Episodic Residual codes; unclassified (7 sources) Screening due 07-20-2021 Episodic Residual codes; unclassified (4 sources) Immunization due 11-22-2022 Episodic Residual codes; unclassified (1 source) Other amnesia; Translations: [Other amnesia] Onset: Episodic Residual codes; unclassified (1 source) Confusional state; Translations: [Disorientation, unspecified] 11-17-2022 Episodic Skin and subcutaneous tissue infections (9 sources) Cellulitis; Translations: [Cellulitis of right foot] 09-01-2020 Episodic Spondylosis; intervertebral disc disorders; other back problems (5 sources) Degeneration of lumbar intervertebral disc 06-14-2022 Chronic Spondylosis; intervertebral disc disorders; other back problems (15 sources) Sciatica; Translations: [Lumbar radiculopathy] 12-15-2020 Episodic Sprains and strains (2 sources) Strain of neck muscle; Translations: [Strain of muscle, fascia and tendon at neck level, initial encounter] 10-28-2022 Episodic Superficial injury; contusion (4 sources) Contusion of elbow; Translations: [Contusion of unspecified elbow, initial encounter] 06-26-2024 Episodic Unclassified (8 sources) Fracture of greater tuberosity of humerus 03-17-2020 Unclassified (8 sources) Medication refused 12-15-2020 Unclassified (20 sources) Patient encounter status 09-14-2020 Unclassified (3 sources) Statin not tolerated (context-dependent category) 02-18-2021 Unclassified (7 sources) Colon cancer screening declined 07-20-2021 Past or Other Problems Problem Classification Problem Date Documented Da te Episodic/Chronic Other connective tissue disease (1 source) Pain in right foot; Translations: [Pain in right foot] Onset: 03-05-2024 Episodic Results Test Name Value Interpretation Reference Range Facility Wound Cultureon 09-12-[address] RT TOE Copy of report sent to Infection Control Printer [id number] 09/12/24 0638 CARISAUCAS. Meth. resistant Staph. aureus Amount Growth 3+ mecA Testing not performed Meth. resistant Staph. aureus: REACTION cefOXitin Susc Islt POS Doxycycline Islt MARITZA <=0.5 Clindamycin Islt MARITZA R Clindamycin.induced Susc Islt POS Erythromycin Islt MARITZA >=8 R Gentamicin Islt MARITZA <=0.5 S Linezolid Islt MARITZA 2 S Moxifloxacin Islt MARITZA <=0.25 S Oxacillin Susc Islt R Tetracycline Islt MARITZA <=1 S TMP SMX Islt MARITZA <=10 S Vancomycin Islt MARITZA <=0.5 S Normal [facility] Comment on above: Performed By: #### M 100.3000, M100.1999 #### [facility] [address] [place], [address] Gram Stainon 09-11-[address] RT TOE Gram Stain No organisms seen No White Blood Cells Normal [facility] Comment on above: Performed By: #### M 100.3000, M100.1999 #### [facility] [address] [place], [address] Gram stainOrdered By: Janeen Morgan on 09-10-2024 Microscopic observation Gram stain Nom (Unsp spec) [facility] Routine wound cultureOrdered By: Jeffy Morgan on 09-10-2024 Microbial culture, routine Meth. resistant Staph. aureus Abnormal [facility] Chest without Contraston Chest without Contrast [facility] Imaging Services [address] [place] [address] Chest without Contrast MR#: [id number] Acct: [id number] Name: AMBROCIO TORREZ Rep #: [id number] : 1950 M 74 From: Mario perez MD PCP: Dr. Elana Hickman DO Status: REG ER Study: Chest without Contrast Date of Exam: 06/17/24 Exam# [id number] Ordering Dr: Neville Swan DO PROCEDURE: CHEST WITHOUT CONTRAST 06/17/2024 REASON FOR EXAM: RIGHT LATERAL MID RIB PAIN TECHNIQUE: Chest CT without contrast. Coronal and Sagittal reconstruction series were provided. One or more dose reduction techniques were used (e.g., Automated exposure control, adjustment of the mA and/or kV according to patient size, use of iterative reconstruction technique COMPARISON: CT chest 11/09/2022 FINDINGS: Hardware: None Lymph nodes: No suspicious adenopathy. Heart and Vasculature: Mild cardiomegaly. Moderate coronary artery calcifications. Trace pericardial effusions. Atherosclerotic calcifications of the thoracic aorta. Thoracic aorta and pulmonary arteries have normal contours; noncontrast technique limits evaluation. Coronary Artery Calcifications: Present Lungs and Airways: Central airways are patent without endobronchial lesions. Mild mosaic attenuation, likely infectious/inflammator y etiology. Patchy opacities in the lung bases, likely secondary to atelectasis. Right middle lobe subpleural opacity (series 4 image 70), compatible with a lipoma. No pneumothorax. No pleural effusion. No suspicious pulmonary nodule. Upper Abdomen: Unremarkable. Bones: No acute osseous abnormality. Degenerative changes of the thoracic spine. CT/Chest without Contrast IMPRESSION: No acute findings in the thorax. Reading Location: [facility] CC: Dr. Neville Swan DO; Dr. Elana Hickman DO Hand Loom Weaver: Signed Normal [facility] Elbow min 3 Viewson 06-18-19 Elbow min 3 Views [facility] Imaging Services [address] [place] [id number] Elbow min 3 Views MR#: [id number] Acct: [id number] Name: AMBROCIO TORREZ Rep #: [id number] : 1950 M 74 From: Mario perez MD PCP: Dr. Elana Hickman DO Status: REG ER Study: Elbow min 3 Views Date of Exam: 06/17/24 Exam# [id number] Ordering Dr: Neville Swan DO PROCEDURE: ELBOW MIN 3 VIEWS 06/17/2024 REASON FOR EXAM: INJURY TECHNIQUE: 3 view(s) each of the bilateral elbows COMPARISON: None FINDINGS: Left elbow: No acute fracture or dislocation. Joint spaces are maintained. No joint effusion. No significant soft tissue swelling. Right elbow: No acute fracture or dislocation. No joint effusion. No significant soft tissue swelling. RAD/Elbow min 3 Views IMPRESSION: No acute findings of both elbows. Reading Location: [facility] CC: Dr. Neville Swan DO; Dr. Elana Hickman DO Hand Loom Weaver: Signed Normal [facility] Elbow min 3 Views [facility] Imaging Services [address] [place] [address] Elbow min 3 Views MR#: [id number] Acct: [id number] Name: AMBROCIO TORREZ Rep #: [id number] : 1950 M 74 From: Mario perez MD PCP: Dr. Elana Hickman DO Status: REG ER Study: Elbow min 3 Views Date of Exam: 06/17/24 Exam# [id number] Ordering Dr: Neville Swan DO PROCEDURE: ELBOW MIN 3 VIEWS 06/17/2024 REASON FOR EXAM: INJURY TECHNIQUE: 3 view(s) each of the bilateral elbows COMPARISON: None FINDINGS: Left elbow: No acute fracture or dislocation. Joint spaces are maintained. No joint effusion. No significant soft tissue swelling. Right elbow: No acute fracture or dislocation. No joint effusion. No significant soft tissue swelling. RAD/Elbow min 3 Views IMPRESSION: No acute findings of both elbows. Reading Location: [facility] CC: Dr. Neville Swan DO; Dr. Elana Hickman DO Hand Loom Weaver: Signed Normal [facility] Emergency Department Summary on 06-17-2024 Emergency Department Summary [facility] Medical Records Department [address] [place] [address] Emergency Department Summary 06/17/24 MR#: [id number] Acct: [id number] Name: AMBROCIO TORREZ Rep #: [id number] : 1950 74 From: Neville Swan DO PCP: Dr. Elana Hickman DO Status:DEP ER Location: ED HPI History of Present Illness Chief Complaint: Fall Informant: patient and spouse/S.O. Narrative Narrative: 74-year-old male presenting to the emergency room for the evaluation following a fall. Patient states he was out in his garage and tripped because of the shoe orthosis he has on his right foot from a surgery. He states he fell forward causing abrasions to the right knee and injuring bilateral elbows as well has striking his chest. He notes pain over the posterior lateral mid ribs. He denies any headache. He denies any abdominal symptoms. No significant neck pain. No loss of consciousness. He chronically cannot move the right shoulder very well due to longstanding rotator cuff tear that is reportedly inoperable. notes that she cleansed the wound with soap and water applied hydrogen peroxide as well as bacitracin. [facility] Medical History Parkinson disease Hypertension Diabetes Home Medications ???Medication ???Instructions ???Recorded ???Last Taken ???Type carbidopa 25 mg-levodopa 250 mg 2 tab PO BID 03/10/20 Unknown Hist ory tablet empagliflozin 10 mg tablet 10 mg PO DAILY 03/10/20 Unknown Hi story (Jardiance) glimepiride 4 mg tablet 4 mg PO DAILY 03/10/20 Unknown His tory lisinopril 20 1 tab PO DAILY 03/10/20 Unknown Hi story mg-hydrochlorothiazide 25 mg tablet tamsulosin 0.4 mg capsule 0.4 mg PO Q24H 03/10/20 Unknown Hi story propranolol 60 mg tablet 20 mg PO BID 05/07/20 Unknown Hist ory amitriptyline 25 mg tablet 25 mg PO QHS 11/09/22 Unknown Hist ory cholecalciferol (vitamin D3) 50 50 mcg PO DAILY 11/09/22 Unknown H istory mcg (2,000 unit) tablet empagliflozin 25 mg tablet 25 mg PO DAILY 11/09/22 Unknown Hi story (Jardiance) gabapentin 100 mg capsule 100 mg PO Q8H 11/09/22 Unknown His tory pravastatin 20 mg tablet 20 mg PO DAILY 11/09/22 Unknown Hi story doxycycline hyclate 100 mg capsule 100 mg PO BID 2 weeks #28 caps 0 03/16/24 Unknown Rx Allergy/AdvReac Type Severity Reaction Status Date / Time No Known Allergies Allergy Verified 06/17/24 20:45 Surgical History History of partial amputation of toe of right foot h/o appendectomy Social History Smoking Status: Never smoker ROS ROS ED Constitutional Constitutional ED: Denies chills, fever(s) or weight loss Eyes Eyes: Denies change in vision or diplopia ENT ENT ED: Denies ear pain, rhinorrhea or sore throat Cardiovascular Cardiovascular: Reports chest pain; Denies orthopnea, palpitations or racing heartbeat Respiratory/Chest Respiratory/Chest: Denies cough, dyspnea or orthopnea Gastrointestinal Gastrointestinal: Denies abdominal pain, diarrhea, nausea or vomiting Genitourinary Genitourinary ED: Denies dysuria, hematuria or urinary frequency Musculoskeletal Musculoskeletal: Reports back pain and other Details: Bilateral elbow pain ; Denies arthralgias or myalgias Integumentary Reports Abrasions; Denies abscess or rash Neurologic Neurologic: Denies headache(s) or weakness Psychiatric Psychiatric: Denies anxiety, depression, suicidal ideation or suicidal thoughts Endocrine Endocrinology: Denies polydipsia, polyphagia or polyuria Allergic/Immunologic Allergic/Immunologic ED: Denies mouth swelling, tongue swelling or urticaria EXAM Physical Exam Const Vital Signs: 06/17/24 20:44 06/17/24 21:54 Temperature 98.1 F Temperature Source Oral Pulse Rate 84 Respiratory Rate 18 Respiratory Effort Normal Non-Labored Respiratory Depth Normal Respiratory Pattern Normal Blood Pressure 122/84 H Blood Pressure Mean 96 Pulse Ox 94 97 Oxygen Delivery Method Room Air Room Air Positive well nourished and well developed General Appearance ED: well developed and NAD HEENT Reports normocephalic, head/scalp atraumatic and moist mucous membranes Eyes PERRL and EOMs intact bilaterally Neck no lymphadenopathy, supple and no JVD Chest Wall Chest Narrative: Tender to palpation just inferior to the right breast anteriorly as well as the associated ribs posteriorly. No subcutaneous emphysema. Ribs moved together as he deep breathes. Resp normal respiratory effort and clear to auscultation bilaterally Cardio regular rate, regular rhythm and no murmurs GI normal to inspection, nondistended, normoactive bowel sounds and non-t (more content not included)... Normal [facility] Knee 4 or More Viewson 06-17 Knee 4 or More Views [facility] Imaging Services [address] [place] [address] Knee 4 or More Views MR#: [id number] Acct: [id number] Name: AMBROCIO TORREZ Rep #: [id number] : 1950 M 74 From: Mario perez MD PCP: Dr. Elana Hickman DO Status: REG ER Study: Knee 4 or More Views Date of Exam: 06/17/24 Exam# [id number] Ordering Dr: Neville Swan DO PROCEDURE: KNEE 4 OR MORE VIEWS 06/17/2024 REASON FOR EXAM: INJURY TECHNIQUE: 3 view(s) of the right knee COMPARISON: None FINDINGS: No significant joint space narrowing. Moderate chondrocalcinosis. Small marginal osteophytes. No acute fracture or dislocation. Small joint effusion and prepatellar soft tissue swelling. RAD/Knee 4 or More Views IMPRESSION: No acute findings. Degenerative changes. [facility] CC: Dr. Neville Swan DO; Dr. Elana Hickman DO Hand Loom Weaver: Signed Normal [facility] Wound Cultureon 06-13-2024 WC 3RD MET LEFT FOOT Staphylococcus aureus Amount Growth 3+ Staphylococcus aureus: REACTION cefOXitin Susc Islt Doxycycline Islt MARITZA <=0.5 S Clindamycin Islt MARITZA R Clindamycin.induced Susc Islt POS Erythromycin Islt MARITZA R Gentamicin Islt MARITZA <=0.5 S Linezolid Islt MARITZA 2 S Moxifloxacin Islt MARITZA <=0.25 S Oxacillin Susc Islt 1 S Tetracycline Islt MARITZA <=1 S TMP SMX Islt MARITZA <=10 S Vancomycin Islt MARITZA 1 S Normal [facility] Comment on above: Performed By: #### M 100.3000, M1.1999 #### [facility] [address] [place], [place], [address] Gram Stainon 06-12-2024 GS 3RD MET LEFT FOOT Gram Stain 3+ Gram positive cocci 3+ Red Blood Cells Normal [facility] Comment on above: Performed By: #### M 100.3000, M1.1999 #### [facility] [address] [place], [address] Gram stainOrdered By: Janeen Morgan on 06-11-2024 Microscopic observation Gram stain Nom (Unsp spec) [facility] B1WBon 05-25-2024 Vitamin B1 Whl Bld 143.1 nmol/L Normal 66.5-200.0 [facility] Comment on above: Result Comment: This test was developed and its performance characteristics determined by [facility]. It has not been cleared or approved by the Food and Drug Administration. Performed At: [facility] [address] [id number] Deng Hilton MD Ph:[phone] Performed By: #### 1 , GFR, ANEU, CMP, ADIFF, TSH, PSA, CBC, LIPID, VIDH #### [place] [address] #### FOL, B12 #### [place] [address] .Auto Diffon 05-21-2024 Basophil, Absolute 0.0 10 3/mcL Normal 0.0-0.3 [facility] Comment on above: Performed By: #### 1 , GFR, ANEU, CMP, ADIFF, TSH, PSA, CBC, LIPID, VIDH #### [place] [address] #### FOL, B12 #### [place] [address] Basophils/100 WBC (Bld) 0.5 % Normal 0.0-2.5 [facility] Comment on above: Performed By: #### 1 , GFR, ANEU, CMP, ADIFF, TSH, PSA, CBC, LIPID, VIDH #### [place] [address] #### FOL, B12 #### [place] [address] Eosinophil, Absolute 0.4 10 3/mcL Normal 0.0-0.7 [facility] Comment on above: Performed By: #### 1 , GFR, ANEU, CMP, ADIFF, TSH, PSA, CBC, LIPID, VIDH #### [place] [address] #### FOL, B12 #### [address] [address] Eosinophils/100 WBC (Bld) 7.4 % High 0.0-6.0 [facility] Comment on above: Performed By: #### 1 , GFR, ANEU, CMP, ADIFF, TSH, PSA, CBC, LIPID, VIDH #### [address] [address] #### FOL, B12 #### [address] [address] Lymphocyte, Absolute 1.0 10 3/mcL Normal 0.9-4.3 [facility] Comment on above: Performed By: #### 1 , GFR, ANEU, CMP, ADIFF, TSH, PSA, CBC, LIPID, VIDH #### [address] [address] #### FOL, B12 #### [address] [address] Lymphocytes/100 WBC (Bld) 17.3 % Low 20.0-40.0 [facility] Comment on above: Performed By: #### 1 , GFR, ANEU, CMP, ADIFF, TSH, PSA, CBC, LIPID, VIDH #### [address] [address] #### FOL, B12 #### [address] [address] Monocyte, Absolute 0.5 10 3/mcL Normal 0.1-1.4 [facility] Comment on above: Performed By: #### 1 , GFR, ANEU, CMP, ADIFF, TSH, PSA, CBC, LIPID, VIDH #### [address] [address] #### FOL, B12 #### [address] [address] Monocytes/100 WBC (Bld) 8.5 % Normal 2.0-13.0 [facility] Comment on above: Performed By: #### 1 , GFR, ANEU, CMP, ADIFF, TSH, PSA, CBC, LIPID, VIDH #### [address] [address] #### FOL, B12 #### [address] [address] Neutrophils/100 WBC (Bld) 66.3 % Normal 50.0-75.0 [facility] Comment on above: Performed By: #### 1 [id number], GFR, ANEU, CMP, ADIFF, TSH, PSA, CBC, LIPID, VIDH #### [address] [address] #### FOL, B12 #### [address] [address] .GFRon 05-21-2024 Estimated Glomerular Filtration Rate 50 ml/min/1.73sqm Normal [facility] Comment on above: Result Comment: Stages of Chronic Kidney Disease (CKD) Stage Description eGFR(ml/min/1.73 sq.m.) CKD 1 Normal kidney function or >=90 normal kindney function with possible kidney damage (ex. Proteinuria) CKD 2 Kidney damage with mild loss 60-89 of kidney function CKD 3a Mild to moderate loss of kidney 45-59 function CKD 3b Moderate to severe loss of 30-44 of kindey function CKD 4 Severe loss of kidney function 15-29 CKD 5 Kidney failure <15 Note: (go live 2024) the eGFR calculation was updated to the 2020 CKD-EPI creatinine equation without a race factor to calculate the eGFR results. Performed By: #### 1 [id number], GFR, ANEU, CMP, ADIFF, TSH, PSA, CBC, LIPID, VIDH #### [address] [address] #### FOL, B12 #### [address] [address] .NEUABSon 05-21-2024 Neutrophil, Absolute 3.8 10 3/mcL Normal 2.3-8.1 [facility] Comment on above: Performed By: #### 1 , GFR, ANEU, CMP, ADIFF, TSH, PSA, CBC, LIPID, VIDH #### [address] [address] #### FOL, B12 #### [address] [address] B12on 05-21-2024 Cobalamin (Vitamin B12) [Mass/Vol] 458 pg/mL Normal 211-911 [facility] Comment on above: Performed By: #### 1 , GFR, ANEU, CMP, ADIFF, TSH, PSA, CBC, LIPID, VIDH #### [address] [address] #### FOL, B12 #### [address] [address] CBCon 05-21-2024 Erythrocyte distribution width (RBC) [Ratio] 13.6 % Normal 11.5-15.5 [facility] Comment on above: Performed By: #### 1 , GFR, ANEU, CMP, ADIFF, TSH, PSA, CBC, LIPID, VIDH #### [address] [address] #### FOL, B12 #### [address] [address] Hematocrit (Bld) [Volume fraction] 49.2 % Normal 40.0-52.0 [facility] Comment on above: Performed By: #### 1 , GFR, ANEU, CMP, ADIFF, TSH, PSA, CBC, LIPID, VIDH #### [address] [address] #### FOL, B12 #### [address] [address] Hgb 16.5 G/dL Normal 13.0-17.5 [facility] Comment on above: Performed By: #### 1 , GFR, ANEU, CMP, ADIFF, TSH, PSA, CBC, LIPID, VIDH #### [address] [address] #### FOL, B12 #### [address] [address] MCH (RBC) [Entitic mass] 30.8 pg Normal 27.0-33.0 [facility] Comment on above: Performed By: #### 1 , GFR, ANEU, CMP, ADIFF, TSH, PSA, CBC, LIPID, VIDH #### [address] [address] #### FOL, B12 #### [address] [address] MCHC 33.6 G/dL Normal 32.0-36.0 [facility] Comment on above: Performed By: #### 1 , GFR, ANEU, CMP, ADIFF, TSH, PSA, CBC, LIPID, VIDH #### [place] [address] #### FOL, B12 #### [place] [address] MCV (RBC) [Entitic vol] 91.8 fL Normal 81.0-100.0 [facility] Comment on above: Performed By: #### 1 , GFR, ANEU, CMP, ADIFF, TSH, PSA, CBC, LIPID, VIDH #### [place] [address] #### FOL, B12 #### [place] [address] Platelet 175 10 3/mcL Normal 150-450 [facility] Comment on above: Performed By: #### 1 , GFR, ANEU, CMP, ADIFF, TSH, PSA, CBC, LIPID, VIDH #### [place] [address] #### FOL, B12 #### [place] [address] Platelet mean volume (Bld) [Entitic vol] 10.0 fL Normal 6.4-10.5 [facility] Comment on above: Performed By: #### 1 , GFR, ANEU, CMP, ADIFF, TSH, PSA, CBC, LIPID, VIDH #### [place] [address] #### FOL, B12 #### [place] [address] RBC 5.36 10 6/mcL Normal 4.50-6.00 [facility] Comment on above: Performed By: #### 1 , GFR, ANEU, CMP, ADIFF, TSH, PSA, CBC, LIPID, VIDH #### [address] [address] #### WAYLON, B12 #### [address] [address] WBC 5.7 10 3/mcL Normal 4.5-10.8 [facility] Comment on above: Performed By: #### 1 , GFR, ANEU, CMP, ADIFF, TSH, PSA, CBC, LIPID, VIDH #### [address] [address] #### WAYLON, B12 #### [address] [address] CMPon 05-21-2024 ALT [Catalytic activity/Vol] 11 U/L Low 16-63 [facility] Comment on above: Performed By: #### 1 , GFR, ANEU, CMP, ADIFF, TSH, PSA, CBC, LIPID, VIDH #### [address] [address] #### WAYLON, B12 #### [address] [address] Albumin Level 3.8 G/dL Normal 3.4-4.8 [facility] Comment on above: Performed By: #### 1 , GFR, ANEU, CMP, ADIFF, TSH, PSA, CBC, LIPID, VIDH #### [place] [address] #### FOL, B12 #### [address] [address] Albumin/Globulin [Mass ratio] 1.1 {ratio} Normal 1.1-2.5 [facility] Comment on above: Performed By: #### 1 , GFR, ANEU, CMP, ADIFF, TSH, PSA, CBC, LIPID, VIDH #### [place] [address] #### FOL, B12 #### [address] [address] ALP [Catalytic activity/Vol] 41 U/L Normal 40-135 [facility] Comment on above: Performed By: #### 1 , GFR, ANEU, CMP, ADIFF, TSH, PSA, CBC, LIPID, VIDH #### [address] [address] #### FOL, B12 #### [address] [address] AST [Catalytic activity/Vol] 11 U/L Normal 10-40 [facility] Comment on above: Performed By: #### 1 , GFR, ANEU, CMP, ADIFF, TSH, PSA, CBC, LIPID, VIDH #### [address] [address] #### WAYLON, B12 #### [place] [address] Bili Total 0.8 mg/dL Normal 0.2-1.0 [facility] Comment on above: Result Comment: Use of this assay is not recommended for patients undergoing treatment with eltrombopag due to the potential for falsely elevated results. Performed By: #### 1 , GFR, ANEU, CMP, ADIFF, TSH, PSA, CBC, LIPID, VIDH #### [address] [address] #### FOL, B12 #### [place] [address] BUN/Creatinine Ratio 29 ratio High 7-27 [facility] Comment on above: Performed By: #### 1 , GFR, ANEU, CMP, ADIFF, TSH, PSA, CBC, LIPID, VIDH #### [address] [address] #### FOL, B12 #### [address] [address] Calcium [Mass/Vol] 9.5 mg/dL Normal 8.4-10.2 [facility] Comment on above: Performed By: #### 1 , GFR, ANEU, CMP, ADIFF, TSH, PSA, CBC, LIPID, VIDH #### [address] [address] #### FOL, B12 #### [address] [address] Chloride [Moles/Vol] 103 mmol/L Normal 98-107 [facility] Comment on above: Performed By: #### 1 , GFR, ANEU, CMP, ADIFF, TSH, PSA, CBC, LIPID, VIDH #### [address] [address] #### FOL, B12 #### [address] [address] CO2 [Moles/Vol] 32 mmol/L High 23-31 [facility] Comment on above: Performed By: #### 1 , GFR, ANEU, CMP, ADIFF, TSH, PSA, CBC, LIPID, VIDH #### [place] [address] #### FOL, B12 #### [address] [address] Creatinine [Mass/Vol] 1.47 mg/dL High 0.70-1.30 [facility] Comment on above: Result Comment: Test ing performed on Siemens Dimension EXL analyzer using a modified kinetic Carolyn technique. Performed By: #### 1 , GFR, ANEU, CMP, ADIFF, TSH, PSA, CBC, LIPID, VIDH #### [address] [address] #### FOL, B12 #### [address] [address] Electrolyte Balance 7.0 mEq/L Normal 4.0-15.0 [facility] Comment on above: Performed By: #### 1 , GFR, ANEU, CMP, ADIFF, TSH, PSA, CBC, LIPID, VIDH #### [address] [address] #### FOL, B12 #### [place] [address] Globulin 3.4 G/dL Normal 1.5-3.8 [facility] Comment on above: Performed By: #### 1 , GFR, ANEU, CMP, ADIFF, TSH, PSA, CBC, LIPID, VIDH #### [address] [address] #### FOL, B12 #### [address] [address] Glucose [Mass/Vol] 166 mg/dL High 83-110 [facility] Comment on above: Performed By: #### 1 , GFR, ANEU, CMP, ADIFF, TSH, PSA, CBC, LIPID, VIDH #### [address] [address] #### FOL, B12 #### [address] [address] Potassium [Moles/Vol] 3.9 mmol/L Normal 3.5-5.1 [facility] Comment on above: Performed By: #### 1 , GFR, ANEU, CMP, ADIFF, TSH, PSA, CBC, LIPID, VIDH #### [address] [address] #### FOL, B12 #### [address] [address] Sodium [Moles/Vol] 142 mmol/L Normal 136-145 [facility] Comment on above: Performed By: #### 1 , GFR, ANEU, CMP, ADIFF, TSH, PSA, CBC, LIPID, VIDH #### [address] [address] #### FOL, B12 #### [address] [address] Total Protein 7.2 G/dL Normal 6.4-8.2 [facility] Comment on above: Performed By: #### 1 , GFR, ANEU, CMP, ADIFF, TSH, PSA, CBC, LIPID, VIDH #### [address] [address] #### FOL, B12 #### [address] [address] Urea nitrogen [Mass/Vol] 42 mg/dL High 7-18 [facility] Comment on above: Performed By: #### 1 , GFR, ANEU, CMP, ADIFF, TSH, PSA, CBC, LIPID, VIDH #### [address] [address] #### FOL, B12 #### [address] [address] FOLon 05-21-2024 Folate 19.66 ng/mL Normal 5.38-24.00 [facility] Comment on above: Performed By: #### 1 , GFR, ANEU, CMP, ADIFF, TSH, PSA, CBC, LIPID, VIDH #### [address] [address] #### FOL, B12 #### [address] [address] LIPIDon 05-21-2024 Cholesterol [Mass/Vol] 148 mg/dL Normal 0-200 [facility] Comment on above: Result Comment: Chol esterol Reference Interval: Less than 200 Desirable 200-239 Borderline high risk 240 and above High risk Performed By: #### 1 , GFR, ANEU, CMP, ADIFF, TSH, PSA, CBC, LIPID, VIDH #### [address] [address] #### FOL, B12 #### [address] [address] Cholesterol in HDL [Mass/Vol] 40 mg/dL Normal 40-60 [facility] Comment on above: Performed By: #### 1 , GFR, ANEU, CMP, ADIFF, TSH, PSA, CBC, LIPID, VIDH #### [address] [address] #### FOL, B12 #### [address] [address] Cholesterol in LDL [Mass/Vol] 83 mg/dL Normal 0-130 [facility] Comment on above: Performed By: #### 1 , GFR, ANEU, CMP, ADIFF, TSH, PSA, CBC, LIPID, VIDH #### [address] [address] #### FOL, B12 #### [address] [address] Triglyceride [Mass/Vol] 125 mg/dL Normal 0-150 [facility] Comment on above: Result Comment: Trig lyceride Reference Interval: Less than 150 Normal 150-199 Borderline high risk 200-499 High risk 500 or higher Very high risk Performed By: #### 1 [address], GFR, ANEU, CMP, ADIFF, TSH, PSA, CBC, LIPID, VIDH #### [address] [address] #### WAYLON, B12 #### [address] [address] MALBRon 05-21-2024 U Creatinine 92.0 mg/dL Normal [facility] Comment on above: Performed By: #### M ALBR #### [address] [address] U Microalb 97.4 mg/L Normal [facility] Comment on above: Performed By: #### M ALBR #### [address] [address] U Ratio Alb/Cre 106 mg/G High 0-30 [facility] Comment on above: Performed By: #### M ALBR #### [address] [address] PSAon 05-21-2024 Prostate Specific Antigen 6.11 ng/mL High 0.00-4.00 [facility] Comment on above: Order Comment: cc re darline to Dr. Adams Performed By: #### 1 , GFR, ANEU, CMP, ADIFF, TSH, PSA, CBC, LIPID, VIDH #### [address] [address] #### FOL, B12 #### [address] [address] TSHon 05-21-2024 TSH Qn 1.40 m[IU]/L Normal 0.36-3.74 [facility] Comment on above: Performed By: #### 1 [address], GFR, ANEU, CMP, ADIFF, TSH, PSA, CBC, LIPID, VIDH #### [address] [address] #### FOL, B12 #### [address] [address] VIDHon 05-21-2024 Vit. D 25-Hydroxy 58.6 ng/mL Normal [facility] Comment on above: Result Comment: Inte rpretive Values Based on Total 25(OH) Vitamin D: Deficient <20 ng/mL Insufficient 20 - <30 ng/mL Sufficient 30-100 ng/mL Performed By: #### 1 [address], GFR, ANEU, CMP, ADIFF, TSH, PSA, CBC, LIPID, VIDH #### [address] [address] #### FOL, B12 #### [address] [address] [id number] 03-13-2024 [facility] Misc. COMMENT Normal . [facility] Comment on above: Order Comment: [id number] 1ANAEROBIC/AEROBIC W GRAM STAIN Result Comment: Test Ordered: [id number] Anaerobic/Aerobic/Gram Stain Anaerobic Culture Note: CB Final report Reference Range: . Result 1 Comment CB Reference Range: . No anaerobic growth in 72 hours. Aerobic Culture Note: [A ] CB Final report Reference Range: . Result 1 Comment [A ] CB Reference Range: . Staphylococcus haemolyticus Based on resistance to oxacillin this isolate would be resistant to all currently available beta-lactam antimicrobial agents, with the exception of the newer cephalosporins with anti-MRSA activity, such as Ceftaroline Heavy growth Antimicrobial Susceptibility Comment CB Reference Range: . S = Susceptible; I = Intermediate; R = Resistant P = Positive; N = Negative MICS are expressed in micrograms per mL Antibiotic RSLT#1 RSLT#2 RSLT#3 RSLT#4 Ciprofloxacin R Clindamycin R Erythromycin R Gentamicin R Levofloxacin R Linezolid S Moxifloxacin R Oxacillin R Penicillin R Rifampin R Tetracycline S Trimethoprim/Sulfa R Vancomycin S Gram Stain Result Note: CB Final report Reference Range: . Result 1 Comment CB Reference Range: . No white blood cells seen. Result 2 Comment CB Reference Range: . Moderate number of gram positive cocci. Performed at: - [facility] [id number] Customs Officer: Jeremy Escobar PhD, Phone: [phone] Performed By: #### M 100.3000, M100.2000 #### [facility] [address] [place], [address] Foot min 3 Viewson 5 Foot min 3 Views [facility] Imaging Services [address] [place], [place] [address] Foot min 3 Views MR#: [id number] Acct: [id number] Name: AMBROCIO TORREZ Rep #: [id number] : 1950 M 74 From: Dutch anne DO PCP: Dr. Elana Hickman, Status: REG RCR Study: Foot min 3 Views Date of Exam: 03/06/24 Exam# [id number] Ordering Dr: Jeffy Morgan DPM [id number] EXAM: XR RIGHT FOOT COMPLETE, 3 OR MORE VIEWS CLINICAL INDICATION: OSTEOMYELITIS R 3RD DIGIT TECHNIQUE: Frontal, lateral and oblique views of the right foot. COMPARISON: 01/30/2024 FINDINGS: BONES/JOINTS: Moderate arthrosis of the first metatarsal phalangeal joint and mild arthrosis throughout the interphalangeal joints of the foot. Calcaneal spurs. No acute fracture. No subluxation. Normal alignment. No definite osseous erosive changes to suggest osteomyelitis. SOFT TISSUES: Mild soft tissue swelling in the forefoot. No radiopaque foreign body. VASCULATURE: Vascular calcifications. RAD/Foot min 3 Views IMPRESSION: No definite osseous erosive changes to suggest osteomyelitis. Degenerative changes and soft tissue swelling. Electronically Signed: Dutch Whitt DO at 21:32 EST , CC: LEEROY Morgan; Dr. Elana Hickman DO Hand Loom Weaver: Signed Normal [facility] History AND Physic jerry 03-06-2024 Wound Ctr History & Physical [facility] [address] [place] [address] H P Exam - Wound Care 03/06/24 1006 MR#: [id number] Acct: [id number] Name: AMBROCIO TORREZ Rep #: [id number] : 1950 74 From: Jeffy Morgan DPM PCP: Dr. Elana Hickman DO Status:REG RCR Location: History of Present Illness Date of Service: 03/06/24 Chief Complaint: Right full-thickness wound third digit History of Wound: Chronic full-thickness wound third digit Progress of Wound: Mr. Torrez is a 74-year-old diabetic male presenting to wound care center today after referral from a Dr. 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 The patient has developed a full- thickness wound to the far end of his right third digit. He was seen at the emergency room at [facility] where he was evaluated and treated. He is currently on 100 mg twice daily of doxycycline which has helped his cellulitis. His wound is still present and is using topical mupirocin cream for treatment and dry sterile dressing and using a surgical shoe to ambulate. The patient states that his blood sugar has been up and down his last A1c was around 9% and his blood sugar varies between 100 to 200 mg/dL. He admits that he is not good at regulating his blood sugar. He denies trauma to the toe. Denies constitutional symptoms. Other pedal complaints at this time. [facility] Medical History Parkinson disease Hypertension Diabetes Home Medications ???Medication ???Instructions ???Recorded ???Last Taken ???Type carbidopa 25 mg-levodopa 250 mg 2 tab PO BID 03/10/20 Unknown History tablet empagliflozin 10 mg tablet 10 mg PO DAILY 03/10/20 Unknown History (Jardiance) glimepiride 4 mg tablet 4 mg PO DAILY 03/10/20 Unknown History lisinopril 20 1 tab PO DAILY 03/10/20 Unknown History mg-hydrochlorothiazide 25 mg tablet tamsulosin 0.4 mg capsule 0.4 mg PO Q24H 03/10/20 Unknown History diphenhydramine HCl 25 mg tablet 25 mg PO QHS 05/07/20 Unknown History propranolol 60 mg tablet 20 mg PO BID 05/07/20 Unknown History amitriptyline 25 mg tablet 25 mg PO QHS 11/09/22 Unknown History cholecalciferol (vitamin D3) 50 50 mcg PO DAILY 11/09/22 Unknown History mcg (2,000 unit) tablet empagliflozin 25 mg tablet 25 mg PO DAILY 11/09/22 Unknown History (Jardiance) gabapentin 100 mg capsule 100 mg PO Q8H 11/09/22 Unknown History pravastatin 20 mg tablet 20 mg PO DAILY 11/09/22 Unknown History cephalexin 500 mg capsule 500 mg PO Q6 #40 CAPSULES 01/30/24 Unknown Rx sulfamethoxazole 800 1 tab PO BID #20 TABLETS 01/30/24 Unknown Rx mg-trimethoprim 160 mg tablet Allergy/AdvReac Type Severity Reaction Status Date / Time No Known Allergies Allergy Verified 03/06/24 09:31 Surgical History h/o appendectomy Social History Smoking Status: Never smoker Vital Signs Vital Signs Vital Signs: 03/06/24 09:33 Pulse Rate 67 Respiratory Rate 18 Blood Pressure 118/81 H Blood Pressure Mean 93 Blood Pressure Source Monitor Blood Pressure Position Sitting Blood Pressure Location Left Arm Oxygen Delivery Method Room Air Weight Weight: 99.79 kg Body Mass Index (BMI) 30.7 Physical Exam Narrative Vascular: DP and PT pulses are faintly palpable. CFT is brisk. Skin temperature great is warm to warm from proximal ankles to distal digits to right lower extremity. Nonpitting edema to the right foot. Neurological:. Light touch intact. Protective station is diminished. Patient does respond to painful stimuli. Dermatological: Full-thickness ulceration to the distal third digit measuring 1.2 x 1.5 x 0.1 cm. Negative probe to bone. Negative drainage. Blanchable erythema is noted. Cannot rule out infect ion at this time. Excisional debridement down to and including subcutaneous tissue with a #15 blade and pickup to the distal full-thickness wound of the third digit right foot. Predebridement measurement was eschar. Postdebridement measurement is 1.2 x 1.5 x 0.1 cm. Musculoskeletal: No pain on palpation to the full-thickness wound. No pain with calf pressure. Debridement Note Debridement Note Debridement Free Text: Excisional debridement down to and including subcutaneous tissue with a #15 blade and pickup to the distal full-thickness wound of the third digit right foot. Predebridement measurement was eschar. Postdebridement measurement is 1.2 x 1.5 x 0.1 cm. Post-Debridement Measurements and Additional Note: Post-Debridement Measurements/Treatment WC - Nurse 1 - General Ulcer Assessment Start: 03/06/24 09:33 Freq: Status: Active Protocol: .LOWEXT Activity Type Activity Date Act (more content not included)... Normal [facility] 2024 Staphylococcus aureu s Amount Growth Growth Staphylococcus aureus: REACTION cefOXitin Susc Islt Doxycycline Islt MARITZA <=0.5 S Clindamycin Islt MARITZA >=4 R Clindamycin.induced Susc Islt NEG Erythromycin Islt MARITZA >=8 R Gentamicin Islt MARITZA <=0.5 S Linezolid Islt MARITZA 1 S Moxifloxacin Islt MARITZA <=0.25 S Oxacillin Susc Islt 2 S Tetracycline Islt MARITZA <=1 S TMP SMX Islt MARITZA <=10 S Vancomycin Islt MARITZA 1 S Normal [facility] Comment on above: Performed By: #### M 100.1999, M100.3000 #### [facility] [address] [place], [place], [id number] Gram Stainon 01-31-2024 GS Gram Stain 2+ Gram positive cocci Rare Gram positive rods No Epithelial cells No White Blood Cells Normal [facility] Comment on above: Performed By: #### M 100.1999, M100.3000 #### [facility] [address] [place], [address] Basic Metabolic Profile (BMP )on 12-17-2024 BUN/CRE 25.9 RATIO High 10-20 [facility] Comment on above: Performed By: #### M 100.3000, #### [facility] [address] [place], [address] CA,Total 9.4 mg/dL Normal 8.5-10.1 [facility] Comment on above: Performed By: #### M 100.3000, #### [facility] [address] [place], [address] Chloride [Moles/Vol] 106 mmol/L Normal 98-107 [facility] Comment on above: Performed By: #### M 100.3000, #### [facility] [address] [place], [address] CO2 [Moles/Vol] 29.0 mmol/L Normal 21.0-32.0 [facility] Comment on above: Performed By: #### M 100.3000, #### [facility] [address] [place], [address] Creatinine [Mass/Vol] 1.35 mg/dL High 0.70-1.30 [facility] Comment on above: Result Comment: The validity of the calculated GFR GFRAA in patients over 70 years has not been determined. Clinical correlation is essential. Performed By: #### M 100.3000, #### [facility] [address] [place], [address] ECRCL 61.45 ml/min Normal [facility] Comment on above: Performed By: #### M 100.3000, #### [facility] [address] [place], [address] EST GFR - AA 67 mL/min Normal >60 [facility] Comment on above: Result Comment: Afri can Mauritian GFR Calc Performed By: #### M 100.3000, #### [facility] [address] [place], [address] GAP 4 Low 5-15 [facility] Comment on above: Performed By: #### M 100.3000, #### [facility] [address] [place], [address] GFR/1.73 sq M.predicted among non-blacks MDRD (S/P/Bld) [Vol rate/Area] 55 mL/min/{1.73_m2} Low >60 [facility] Comment on above: Result Comment: Non- GFR Calc Performed By: #### M 100.3000, #### [facility] [address] [place], [address] Glucose [Mass/Vol] 157 mg/dL High 74-106 [facility] Comment on above: Result Comment: Fast ing Glucose result greater than or equal to 126 mg/dL suggests DIABETES MELLITUS per A.D.A. criteria. Performed By: #### M 100.3000, #### [facility] [address] [place], [address] Potassium [Moles/Vol] 4.0 mmol/L Normal 3.5-5.1 [facility] Comment on above: Performed By: #### M 100.3000, #### [facility] [address] [place], [address] Sodium [Moles/Vol] 139 mmol/L Normal 136-145 [facility] Comment on above: Performed By: #### M 100.3000, #### [facility] [address] [place], [address] Urea nitrogen [Mass/Vol] 35 mg/dL High 7-18 [facility] Comment on above: Performed By: #### M 100.3000, #### [facility] [address] [place], [address] CBC W/Diff, Automatedon 12- Absolute Lymph 0.94 X10 3/uL Normal 0.83-4.51 [facility] Comment on above: Performed By: #### M 100.3000, #### [facility] [address] [place], [address] Absolute Neut 5.3 X10 3/uL Normal 2.0-7.7 [facility] Comment on above: Performed By: #### M 100.3000, #### [facility] [address] [place], [address] Basophils/100 WBC (Bld) 0.4 % Normal 0-1 [facility] Comment on above: Performed By: #### M 100.3000, #### [facility] [address] [place], [address] Eosinophils/100 WBC (Bld) 4.7 % Normal 0-5 [facility] Comment on above: Performed By: #### M 100.3000, #### [facility] [address] [place], [address] Erythrocyte distribution width (RBC) [Ratio] 12.0 % Normal 11.6-14.6 [facility] Comment on above: Performed By: #### M 100.3000, #### [facility] [address] [place], [address] Hematocrit (Bld) [Volume fraction] 47.6 % Normal 40-54 [facility] Comment on above: Performed By: #### M 100.3000, #### [facility] [address] [place], [address] Hemoglobin (Bld) [Mass/Vol] 16.2 g/dL Normal 13.0-16.5 [facility] Comment on above: Performed By: #### M 100.3000, #### [facility] [address] [place], [address] IG% 0.400 Normal 0.0-0.9 [facility] Comment on above: Result Comment: IG% - Immature Granulocytes (promyelocytes, myelocytes and metamyelocytes) > 1% indicates that a LEFT SHIFT is Present. Performed By: #### M 100.3000, #### [facility] [address] [place], [address] Lymphocytes/100 WBC (Bld) 13.0 % Low 19-41 [facility] Comment on above: Performed By: #### M 100.3000, #### [facility] [address] [place], [address] MCH (RBC) [Entitic mass] 30.9 pg Normal 27.0-32.0 [facility] Comment on above: Performed By: #### M 100.3000, #### [facility] [address] [place], [address] MCHC (RBC) [Mass/Vol] 34.0 g/dL Normal 32-36 [facility] Comment on above: Performed By: #### M 100.3000, #### [facility] [address] [place], [address] MCV (RBC) [Entitic vol] 90.7 fL Normal 80-94 [facility] Comment on above: Performed By: #### M 100.3000, #### [facility] [address] [place], [address] Monocytes/100 WBC (Bld) 7.5 % Normal 0-10 [facility] Comment on above: Performed By: #### M 100.3000, #### [facility] [address] [place], [address] Neutrophils/100 WBC (Bld) 74.0 % High 47-70 [facility] Comment on above: Performed By: #### M 100.3000, #### [facility] [address] [place], [address] Nucleated RBC (Bld) [#/Vol] 0 10*3/uL Normal 0-5 [facility] Comment on above: Performed By: #### M 100.3000, #### [facility] [address] [place], [address] Platelet mean volume (Bld) [Entitic vol] 11.1 fL Normal 6.2-12.0 [facility] Comment on above: Performed By: #### M 100.3000, #### [facility] [address] [place], [address] Platelets (Bld) [#/Vol] 192 10*3/uL Normal 150-450 [facility] Comment on above: Performed By: #### M 100.3000, #### [facility] [address] [place], [address] RBC (Bld) [#/Vol] 5.25 10*6/uL Normal 4.6-6.2 [facility] Comment on above: Performed By: #### M 100.3000, #### [facility] [address] [place], [address] RDW SD 39.8 fl Normal 35.1-43.9 [facility] Comment on above: Performed By: #### M 100.3000, #### [facility] [address] [place], [address] WBC (Bld) [#/Vol] 7.2 10*3/uL Normal 4.4-11.0 [facility] Comment on above: Performed By: #### M 100.3000, #### [facility] [address] [place], [address] Emergency Department Summary on 01-30-2024 Emergency Department Summary [facility] Medical Records Department [address] [place] [address] Emergency Department Summary 01/30/24 MR#: [id number] Acct: [id number] Name: AMBROCIO TORREZ Rep #: [id number] : 1950 73 From: Neville Swan DO PCP: Dr. Elana Hickman DO Status:DEP ER Location: ED HPI History of Present Illness Chief Complaint: Lower Extremity Injury Informant: patient and spouse/S.O. Narrative Narrative: 73-year-old diabetic male presenting to the emergency room with redness and pain to the right foot. Patient states that recently he was wondering if his second and third toes were rubbing together. He had his put a Band-Aid over them. Now he notes the foot is more swollen and red the sores are noted in between his second and third toe. 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 He denies any fevers. [facility] Medical History Parkinson disease Hypertension Diabetes Home Medications ???Medication ???Instructions ???Recorded ???Last Taken ???Type carbidopa 25 mg-levodopa 250 mg 2 tab PO BID 03/10/20 Unknown History tablet empagliflozin 10 mg tablet 10 mg PO DAILY 03/10/20 Unknown History (Jardiance) glimepiride 4 mg tablet 4 mg PO DAILY 03/10/20 Unknown History lisinopril 20 1 tab PO DAILY 03/10/20 Unknown History mg-hydrochlorothiazide 25 mg tablet tamsulosin 0.4 mg capsule 0.4 mg PO Q24H 03/10/20 Unknown History diphenhydramine HCl 25 mg tablet 25 mg PO QHS 05/07/20 Unknown History propranolol 60 mg tablet 20 mg PO BID 05/07/20 Unknown History amitriptyline 25 mg tablet 25 mg PO QHS 11/09/22 Unknown History cholecalciferol (vitamin D3) 50 50 mcg PO DAILY 11/09/22 Unknown History mcg (2,000 unit) tablet empagliflozin 25 mg tablet 25 mg PO DAILY 11/09/22 Unknown History (Jardiance) gabapentin 100 mg capsule 100 mg PO Q8H 11/09/22 Unknown History pravastatin 20 mg tablet 20 mg PO DAILY 11/09/22 Unknown History cephalexin 500 mg capsule 500 mg PO Q6 #40 CAPSULES 01/30/24 Unknown Rx sulfamethoxazole 800 1 tab PO BID #20 TABLETS 01/30/24 Unknown Rx mg-trimethoprim 160 mg tablet Allergy/AdvReac Type Severity Reaction Status Date / Time No Known Allergies Allergy Verified 10/28/22 02:35 Surgical History h/o appendectomy Social History Smoking Status: Never smoker ROS ROS ED Constitutional Constitutional ED: Denies chills, fever(s) or weight loss Eyes Eyes: Denies change in vision or diplopia ENT ENT ED: Denies ear pain, rhinorrhea or sore throat Cardiovascular Cardiovascular: Denies chest pain, orthopnea, palpitations or racing heartbeat Respiratory/Chest Respiratory/Chest: Denies cough, dyspnea or orthopnea Gastrointestinal Gastrointestinal: Denies abdominal pain, diarrhea, nausea or vomiting Genitourinary Genitourinary ED: Denies dysuria, hematuria or urinary frequency Musculoskeletal Musculoskeletal: Reports other Details: See history of present illness ; Denies arthralgias or myalgias Integumentary Reports Abrasions and rash; Denies abscess Neurologic Neurologic: Denies headache(s) or weakness Psychiatric Psychiatric: Denies anxiety, depression, suicidal ideation or suicidal thoughts Endocrine Endocrinology: Denies polydipsia, polyphagia or polyuria Allergic/Immunologic Allergic/Immunologic ED: Denies mouth swelling, tongue swelling or urticaria EXAM Physical Exam Const Vital Signs: 01/30/24 11:54 Temperature 97.4 F L Temperature Source Temporal Pulse Rate 70 Respiratory Rate 20 H Blood Pressure 122/90 H Blood Pressure Mean 100 Pulse Ox 96 Oxygen Delivery Method Room Air Positive well nourished and well developed General Appearance ED: well developed and NAD HEENT Reports normocephalic, head/scalp atraumatic and moist mucous membranes Eyes PERRL and EOMs intact bilaterally Neck no lymphadenopathy, supple and no JVD Resp normal respiratory effort and clear to auscultation bilaterally Cardio regular rate, regular rhythm and no murmurs GI normal to inspection, nondistended, normoactive bowel sounds and non-tender Palpation: soft Back/Spine no CVA tenderness and normal ROM Extremity Extremity Narrative: Dorsum of the foot is erythematous with some slight increased warmth to about the level of the midfoot. Second and third toes are erythematous slightly swollen. There is wet skin breakdown in between the distal portion of the toes of the second and the third digits. There is no lymphangitic streaking. No significant foul smell. General Extremety ED: Negative for edema General Extremity: Negative for edema Neuro oriented x3 and CN's (more content not included)... Normal [facility] Foot min 3 Viewson 4 Foot min 3 Views [facility] Imaging Services [address], [place] [id number] Foot min 3 Views MR#: [id number] Acct: [id number] Name: AMBROCIO TORREZ Rep #: [id number] : 1950 M 73 From: Adelfo joy MD PCP: Dr. Elana Hickman DO Status: REG ER Study: Foot min 3 Views Date of Exam: 01/30/24 Exam# [id number] Ordering Dr: Neville Swan DO [id number] STUDY: X-RAY - RIGHT FOOT CLINICAL: Male, 73 years old. Diabetic foot cellulitis wound 2/3 toe distally TECHNIQUE: 3 view(s) of the foot. COMPARISON: None. FINDINGS: There is a plantar calcaneal spur. Normal visualized subtalar, talonavicular, calcaneocuboid, tarsal and tarsometatarsal articulations. Normal metatarsi. There is degenerative arthrosis of the metatarsophalangeal joint of the hallux . Normal tibial and fibular sesamoid bones. Normal interphalangeal joint of the great toe. Normal phalanges of the great toe. Normal second through fifth metatarsophalangeal joints. Normal interphalangeal joints and phalanges of the lesser toes. Soft tissue swelling. Vascular calcification. RAD/Foot min 3 Views IMPRESSION: Soft tissue swelling. Vascular calcification. No bony destruction is seen. Calcaneal spur. Electronically Signed: Adelfo Raya MD at 13:29 EST , CC: Dr. Neville Swan, DO; Dr. Elana Hickman, DO Hand Loom Weaver: Signed Normal [facility] .Auto Diffon 11-02-2023 Basophil, Absolute 0.0 10 3/mcL Normal 0.0-0.2 [facility] Comment on above: Performed By: #### 1 , GFR, ANEU, CMP, ADIFF, TSH, PSA, CBC, LIPID, VIDH #### [address] [address] #### FOL, B12 #### [address] [address] Basophils/100 WBC (Bld) 0.5 % Normal 0.0-2.5 [facility] Comment on above: Performed By: #### 1 , GFR, ANEU, CMP, ADIFF, TSH, PSA, CBC, LIPID, VIDH #### [address] [address] #### FOL, B12 #### [address] [address] Eosinophil, Absolute 0.5 10 3/mcL High 0.0-0.4 [facility] Comment on above: Performed By: #### 1 , GFR, ANEU, CMP, ADIFF, TSH, PSA, CBC, LIPID, VIDH #### [address] [address] #### FOL, B12 #### [address] [address] Eosinophils/100 WBC (Bld) 8.6 % High 0.0-7.0 [facility] Comment on above: Performed By: #### 1 , GFR, ANEU, CMP, ADIFF, TSH, PSA, CBC, LIPID, VIDH #### [address] [address] #### FOL, B12 #### [address] [address] Lymphocyte, Absolute 1.5 10 3/mcL Normal 0.8-3.9 [facility] Comment on above: Performed By: #### 1 , GFR, ANEU, CMP, ADIFF, TSH, PSA, CBC, LIPID, VIDH #### [place] [address] #### FOL, B12 #### [address] [address] Lymphocytes/100 WBC (Bld) 27.7 % Normal 10.0-50.0 [facility] Comment on above: Performed By: #### 1 , GFR, ANEU, CMP, ADIFF, TSH, PSA, CBC, LIPID, VIDH #### [place] [address] #### FOL, B12 #### [address] [address] Monocyte, Absolute 0.6 10 3/mcL Normal 0.2-1.0 [facility] Comment on above: Performed By: #### 1 , GFR, ANEU, CMP, ADIFF, TSH, PSA, CBC, LIPID, VIDH #### [address] [address] #### FOL, B12 #### [address] [address] Monocytes/100 WBC (Bld) 10.8 % Normal 1.7-13.0 [facility] Comment on above: Performed By: #### 1 , GFR, ANEU, CMP, ADIFF, TSH, PSA, CBC, LIPID, VIDH #### [place] [address] #### FOL, B12 #### [address] [address] Neutrophils/100 WBC (Bld) 52.4 % Normal 37.0-80.0 [facility] Comment on above: Performed By: #### 1 [address], GFR, ANEU, CMP, ADIFF, TSH, PSA, CBC, LIPID, VIDH #### [address] [address] #### FOL, B12 #### [address] [address] .GFRon 11-02-2023 GFR 60 ml/min/1.73sqm Normal [facility] Comment on above: Result Comment: GFR Population mean for , Non- Americans Ages 20-29 = 116 mL/min/1.73 sq.m. Ages 30-39 = 107 mL/min/1.73 sq.m. Ages 40-49 = 99 mL/min/1.73 sq.m. Ages 50-59 = 93 mL/min/1.73 sq.m. Ages 60-69 = 85 mL/min/1.73 sq.m. Ages 70+ = 75 mL/min/1.73 sq.m. Chronic Kidney Disease: Less than 60 mL/min/1.73 square meters End Stage Renal Disease: Less than 15 mL/min/1.73 square meters Performed By: #### 1 [address], GFR, ANEU, CMP, ADIFF, TSH, PSA, CBC, LIPID, VIDH #### [address] [address] #### FOL, B12 #### [address] [address] GFR Non- 50 ml/min/1.73sqm Normal [facility] Comment on above: Result Comment: GFR Population mean for , Non- Americans Ages 20-29 = 116 mL/min/1.73 sq.m. Ages 30-39 = 107 mL/min/1.73 sq.m. Ages 40-49 = 99 mL/min/1.73 sq.m. Ages 50-59 = 93 mL/min/1.73 sq.m. Ages 60-69 = 85 mL/min/1.73 sq.m. Ages 70+ = 75 mL/min/1.73 sq.m. Chronic Kidney Disease: Less than 60 mL/min/1.73 square meters End Stage Renal Disease: Less than 15 mL/min/1.73 square meters Performed By: #### 1 [address], GFR, ANEU, CMP, ADIFF, TSH, PSA, CBC, LIPID, VIDH #### [place] [address] #### FOL, B12 #### [address] [address] .NEUABSon 11-02-2023 Neutrophil, Absolute 2.8 10 3/mcL Low 2.9-6.2 [facility] Comment on above: Performed By: #### 1 , GFR, ANEU, CMP, ADIFF, TSH, PSA, CBC, LIPID, VIDH #### [place] [address] #### FOL, B12 #### [place] [address] A1Con 11-02-2023 Glucose [Mass/Vol] 217 mg/dL Normal [facility] Comment on above: Result Comment: Lilli mated Average Glucose calculated by equation ((28.7xA1C)-46.7) Estimated average glucose (eAG) is a calculated value from Hemoglobin A1C and is telecommunications sales representative of the average blood glucose level in the last 2-3 month period. Normal range: less than 114 mg/dL Performed By: #### 1 , GFR, ANEU, CMP, ADIFF, TSH, PSA, CBC, LIPID, VIDH #### [address] [address] #### FOL, B12 #### [address] [address] HbA1c (Bld) [Mass fraction] 9.2 % High 4.3-6.4 [facility] Comment on above: Performed By: #### 1 , GFR, ANEU, CMP, ADIFF, TSH, PSA, CBC, LIPID, VIDH #### [address] [address] #### FOL, B12 #### [address] [address] CBCon 11-02-2023 Erythrocyte distribution width (RBC) [Ratio] 13.2 % Normal 11.5-14.5 [facility] Comment on above: Performed By: #### 1 , GFR, ANEU, CMP, ADIFF, TSH, PSA, CBC, LIPID, VIDH #### [place] [address] #### FOL, B12 #### [place] [address] Hematocrit (Bld) [Volume fraction] 48.8 % Normal 42.0-52.0 [facility] Comment on above: Performed By: #### 1 , GFR, ANEU, CMP, ADIFF, TSH, PSA, CBC, LIPID, VIDH #### [place] [address] #### FOL, B12 #### [place] [address] Hgb 16.5 G/dL Normal 14.0-18.0 [facility] Comment on above: Performed By: #### 1 , GFR, ANEU, CMP, ADIFF, TSH, PSA, CBC, LIPID, VIDH #### [address] [address] #### FOL, B12 #### [place] [address] MCH (RBC) [Entitic mass] 31.5 pg High 27.0-31.2 [facility] Comment on above: Performed By: #### 1 , GFR, ANEU, CMP, ADIFF, TSH, PSA, CBC, LIPID, VIDH #### [place] [address] #### FOL, B12 #### [place] [address] MCHC 33.9 G/dL Normal 31.8-35.4 [facility] Comment on above: Performed By: #### 1 , GFR, ANEU, CMP, ADIFF, TSH, PSA, CBC, LIPID, VIDH #### [place] [address] #### WAYLON, B12 #### [place] [address] MCV (RBC) [Entitic vol] 92.8 fL Normal 80.0-94.0 [facility] Comment on above: Performed By: #### 1 , GFR, ANEU, CMP, ADIFF, TSH, PSA, CBC, LIPID, VIDH #### [place] [address] #### WAYLON, B12 #### [place] [address] Platelet 193 10 3/mcL Normal 130-400 [facility] Comment on above: Performed By: #### 1 , GFR, ANEU, CMP, ADIFF, TSH, PSA, CBC, LIPID, VIDH #### [place] [address] #### WAYLON, B12 #### [place] [address] Platelet mean volume (Bld) [Entitic vol] 10.3 fL Normal 7.4-10.4 [facility] Comment on above: Performed By: #### 1 , GFR, ANEU, CMP, ADIFF, TSH, PSA, CBC, LIPID, VIDH #### [place] [address] #### FOL, B12 #### [place] [address] RBC 5.25 10 6/mcL Normal 4.04-6.13 [facility] Comment on above: Performed By: #### 1 , GFR, ANEU, CMP, ADIFF, TSH, PSA, CBC, LIPID, VIDH #### [place] [address] #### FOL, B12 #### [place] [address] WBC 5.3 10 3/mcL Normal 4.6-10.8 [facility] Comment on above: Performed By: #### 1 , GFR, ANEU, CMP, ADIFF, TSH, PSA, CBC, LIPID, VIDH #### [address] [address] #### WAYLON, B12 #### [address] [address] CMPon 11-02-2023 Albumin Level 3.9 G/dL Normal 3.4-4.8 [facility] Comment on above: Performed By: #### 1 , GFR, ANEU, CMP, ADIFF, TSH, PSA, CBC, LIPID, VIDH #### [place] [address] #### WAYLON, B12 #### [place] [address] Albumin/Globulin [Mass ratio] 1.4 {ratio} Normal 1.1-2.5 [facility] Comment on above: Performed By: #### 1 , GFR, ANEU, CMP, ADIFF, TSH, PSA, CBC, LIPID, VIDH #### [place] [address] #### FOL, B12 #### [place] [address] ALP [Catalytic activity/Vol] 45 U/L Normal 40-135 [facility] Comment on above: Performed By: #### 1 , GFR, ANEU, CMP, ADIFF, TSH, PSA, CBC, LIPID, VIDH #### [place] [address] #### FOL, B12 #### [place] [id number] ALT [Catalytic activity/Vol] 14 U/L Low 16-63 [facility] Comment on above: Performed By: #### 1 , GFR, ANEU, CMP, ADIFF, TSH, PSA, CBC, LIPID, VIDH #### [place] [address] #### FOL, B12 #### [address] [address] AST [Catalytic activity/Vol] 13 U/L Normal 10-40 [facility] Comment on above: Performed By: #### 1 , GFR, ANEU, CMP, ADIFF, TSH, PSA, CBC, LIPID, VIDH #### [place] [address] #### FOL, B12 #### [place] [address] Bili Total 0.8 mg/dL Normal 0.2-1.0 [facility] Comment on above: Result Comment: Use of this assay is not recommended for patients undergoing treatment with eltrombopag due to the potential for falsely elevated results. Performed By: #### 1 , GFR, ANEU, CMP, ADIFF, TSH, PSA, CBC, LIPID, VIDH #### [place] [address] #### FOL, B12 #### [place] [address] BUN/Creatinine Ratio 26 ratio Normal 7-27 [facility] Comment on above: Performed By: #### 1 , GFR, ANEU, CMP, ADIFF, TSH, PSA, CBC, LIPID, VIDH #### [place] [address] #### FOL, B12 #### [place] [address] Calcium [Mass/Vol] 9.3 mg/dL Normal 8.4-10.2 [facility] Comment on above: Performed By: #### 1 , GFR, ANEU, CMP, ADIFF, TSH, PSA, CBC, LIPID, VIDH #### [place] [address] #### FOL, B12 #### [place] [address] Chloride [Moles/Vol] 103 mmol/L Normal 98-107 [facility] Comment on above: Performed By: #### 1 [address], GFR, ANEU, CMP, ADIFF, TSH, PSA, CBC, LIPID, VIDH #### [address] [address] #### FOL, B12 #### [address] [address] CO2 [Moles/Vol] 31 mmol/L Normal 23-31 [facility] Comment on above: Performed By: #### 1 , GFR, ANEU, CMP, ADIFF, TSH, PSA, CBC, LIPID, VIDH #### [address] [address] #### FOL, B12 #### [address] [address] Creatinine [Mass/Vol] 1.40 mg/dL High 0.70-1.30 [facility] Comment on above: Result Comment: Test ing performed on Siemens Dimension EXL analyzer using a modified kinetic Carolyn technique. Performed By: #### 1 , GFR, ANEU, CMP, ADIFF, TSH, PSA, CBC, LIPID, VIDH #### [address] [address] #### FOL, B12 #### [address] [address] Electrolyte Balance 9.0 mEq/L Normal 4.0-15.0 [facility] Comment on above: Performed By: #### 1 , GFR, ANEU, CMP, ADIFF, TSH, PSA, CBC, LIPID, VIDH #### [address] [address] #### FOL, B12 #### [address] [address] Globulin 2.8 G/dL Normal [facility] Comment on above: Performed By: #### 1 , GFR, ANEU, CMP, ADIFF, TSH, PSA, CBC, LIPID, VIDH #### [address] [address] #### FOL, B12 #### [address] [address] Glucose [Mass/Vol] 99 mg/dL Normal 83-110 [facility] Comment on above: Performed By: #### 1 , GFR, ANEU, CMP, ADIFF, TSH, PSA, CBC, LIPID, VIDH #### [address] [address] #### FOL, B12 #### [address] [address] Potassium [Moles/Vol] 3.9 mmol/L Normal 3.5-5.1 [facility] Comment on above: Performed By: #### 1 , GFR, ANEU, CMP, ADIFF, TSH, PSA, CBC, LIPID, VIDH #### [address] [address] #### FOL, B12 #### [address] [address] Sodium [Moles/Vol] 143 mmol/L Normal 136-145 [facility] Comment on above: Performed By: #### 1 , GFR, ANEU, CMP, ADIFF, TSH, PSA, CBC, LIPID, VIDH #### [address] [address] #### FOL, B12 #### [address] [address] Total Protein 6.7 G/dL Normal 6.4-8.2 [facility] Comment on above: Performed By: #### 1 , GFR, ANEU, CMP, ADIFF, TSH, PSA, CBC, LIPID, VIDH #### [address] [address] #### FOL, B12 #### [address] [address] Urea nitrogen [Mass/Vol] 37 mg/dL High 7-18 [facility] Comment on above: Performed By: #### 1 , GFR, ANEU, CMP, ADIFF, TSH, PSA, CBC, LIPID, VIDH #### [address] [address] #### FOL, B12 #### [address] [place], [place] [address] LABORATORYOrdered By: SYSTEM SYSTEM on 11-02-2023 25-hydroxyvitamin D3 [Mass/Vol] 44.4 ng/mL Invalid Interpretation Code AO ADM SS Comment on above: Interpretive Data: I nterpretive Values Based on Total 25(OH) Vitamin D: Deficient <20 ng/mL Insufficient 20 - <30 ng/mL Sufficient 30-100 ng/mL Albumin BCP dye [Mass/Vol] 3.9 G/dL Normal 3.4 - 4.8 G/dL AO ADM SS Albumin/Globulin [Mass ratio] 1.4 {ratio} Normal 1.1 - 2.5 ratio AO ADM SS ALP [Catalytic activity/Vol] 45 U/L Normal 40 - 135 U/L AO ADM SS ALT With P-5'-P [Catalytic activity/Vol] 14 U/L Low 16 - 63 U/L AO ADM SS AST With P-5'-P [Catalytic activity/Vol] 13 U/L Normal 10 - 40 U/L AO ADM SS Basophils (Bld) [#/Vol] 0.0 103/mcL Normal 0.0 - 0.2 10^3/mcL AO Workflow SS Basophils/100 WBC (Bld) 0.5 % Normal 0.0 - 2.5 % AO Workflow SS Bilirubin [Mass/Vol] 0.8 mg/dL Normal 0.2 - 1 .0 mg/dL AO ADM SS Comment on above: Interpretive Data: U se of this assay is not recommended for patients undergoing treatment with eltrombopag due to the potential for falsely elevated results. Calcium [Mass/Vol] 9.3 mg/dL Normal 8.4 - 10. 2 mg/dL AO ADM SS Chloride [Moles/Vol] 103 mmol/L Normal 98 - 10 7 mmol/L AO ADM SS CO2 [Moles/Vol] 31 mmol/L Normal 23 - 31 mmol/L AO ADM SS Creatinine [Mass/Vol] 1.40 mg/dL High 0.70 - 1.30 mg/dL AO ADM SS Comment on above: Interpretive Data: T esting performed on Siemens Dimension EXL analyzer using a modified kinetic Carolyn technique. Electrolyte Balance 9.0 mEq/L Normal 4.0 - 15 .0 mEq/L AO ADM SS Eosinophil, Absolute 0.5 103/mcL High 0.0 - 0 .4 10^3/mcL AO Workflow SS Eosinophils/100 WBC (Bld) 8.6 % High 0.0 - 7.0 % AO Workflow SS Erythrocyte distribution width (RBC) [Ratio] 13.2 % Normal 11.5 - 14.5 % AO Workflow SS GFR/1.73 sq M.predicted among blacks MDRD (S/P/Bld) [Vol rate/Area] 60 ml/min/1.73sqm Invalid Interpretation Code AO Chemistry S Comment on above: Interpretive Data: GFR Population mean for , Non- Americans Ages 20-29 = 116 mL/min/1.73 sq.m. Ages 30-39 = 107 mL/min/1.73 sq.m. Ages 40-49 = 99 mL/min/1.73 sq.m. Ages 50-59 = 93 mL/min/1.73 sq.m. Ages 60-69 = 85 mL/min/1.73 sq.m. Ages 70+ = 75 mL/min/1.73 sq.m. Chronic Kidney Disease: Less than 60 mL/min/1.73 square meters End Stage Renal Disease: Less than 15 mL/min/1.73 square meters GFR/1.73 sq M.predicted among non-blacks MDRD (S/P/Bld) [Vol rate/Area] 50 ml/min/1.73sqm Invalid Interpretation Code AO Chemistry S Comment on above: Interpretive Data: GFR Population mean for , Non- Americans Ages 20-29 = 116 mL/min/1.73 sq.m. Ages 30-39 = 107 mL/min/1.73 sq.m. Ages 40-49 = 99 mL/min/1.73 sq.m. Ages 50-59 = 93 mL/min/1.73 sq.m. Ages 60-69 = 85 mL/min/1.73 sq.m. Ages 70+ = 75 mL/min/1.73 sq.m. Chronic Kidney Disease: Less than 60 mL/min/1.73 square meters End Stage Renal Disease: Less than 15 mL/min/1.73 square meters Globulin 2.8 G/dL Invalid Interpretation Code AO ADM SS Glucose [Mass/Vol] 217 mg/dL Invalid Interpretation Code AO Chemistry S Comment on above: Interpretive Data: E stimated average glucose (eAG) is a calculated value from Hemoglobin A1C and is telecommunications sales representative of the average blood glucose level in the last 2-3 month period. Normal range: less than 114 mg/dL Glucose [Mass/Vol] 99 mg/dL Normal 83 - 110 mg/dL AO ADM SS HbA1c (Bld) [Mass fraction] 9.2 % High 4.3 - 6.4 % AO ADM SS Hematocrit (Bld) [Volume fraction] 48.8 % Normal 42.0 - 52.0 % AO Workflow SS Hemoglobin (Bld) [Mass/Vol] 16.5 G/dL Normal 14.0 - 18.0 G/dL AO Workflow SS Lymphocytes (Bld) [#/Vol] 1.5 103/mcL Normal 0.8 - 3.9 10^3/mcL AO Workflow SS Lymphocytes/100 WBC (Bld) 27.7 % Normal 10.0 - 50.0 % AO Workflow SS MCH (RBC) [Entitic mass] 31.5 pg High 27.0 - 31.2 pg AO Workflow SS MCHC 33.9 G/dL Normal 31.8 - 35.4 G/dL AO Workflow SS MCV (RBC) [Entitic vol] 92.8 fL Normal 80.0 - 94.0 fL AO Workflow SS Monocytes (Bld) [#/Vol] 0.6 103/mcL Normal 0.2 - 1.0 10^3/mcL AO Workflow SS Monocytes/100 WBC (Bld) 10.8 % Normal 1.7 - 13.0 % AO Workflow SS Neutrophils (Bld) [#/Vol] 2.8 103/mcL Low 2.9 - 6.2 10^3/mcL AO Workflow SS Neutrophils/100 WBC (Bld) 52.4 % Normal 37.0 - 80.0 % AO Workflow SS Platelet mean volume (Bld) [Entitic vol] 10.3 fL Normal 7.4 - 10.4 fL AO Workflow SS Platelets (Bld) [#/Vol] 193 103/mcL Normal 130 - 400 10^3/mcL AO Workflow SS Potassium [Moles/Vol] 3.9 mmol/L Normal 3.5 - 5.1 mmol/L AO ADM SS Prostate specific Ag [Mass/Vol] 6.20 ng/mL High 0.00 - 4.00 ng/mL AO ADM SS Protein [Mass/Vol] 6.7 G/dL Normal 6.4 - 8.2 G/dL AO ADM SS RBC (Bld) [#/Vol] 5.25 106/mcL Normal 4.04 - 6.1 3 10^6/mcL AO Workflow SS Sodium [Moles/Vol] 143 mmol/L Normal 136 - 145 mmol/L AO ADM SS TSH Qn 2.31 m[IU]/L Normal 0.36 - 3.74 mcIU/mL AO ADM SS Urea nitrogen [Mass/Vol] 37 mg/dL High 7 - 18 mg/dL AO ADM SS Urea nitrogen/Creatinine [Mass ratio] 26 ratio Normal 7 - 27 ratio AO ADM SS WBC (Bld) [#/Vol] 5.3 103/mcL Normal 4.6 - 10.8 10^3/mcL AO Workflow SS LABORATORYOrdered By: Ceasar Rice on 11-02-2023 Cholesterol [Mass/Vol] 162 mg/dL Normal 0 - 200 mg/dL AO ADM SS Comment on above: Interpretive Data: C holesterol Reference Interval: Less than 200 Desirable 200-239 Borderline high risk 240 and above High risk Cholesterol in HDL [Mass/Vol] 40 mg/dL Normal 40 - 60 mg/dL AO ADM SS Cholesterol in LDL [Mass/Vol] 90 mg/dL Normal 0 - 130 mg/dL AO ADM SS Triglyceride [Mass/Vol] 158 mg/dL High 0 - 150 mg/dL AO ADM SS Comment on above: Interpretive Data: T riglyceride Reference Interval: Less than 150 Normal 150-199 Borderline high risk 200-499 High risk 500 or higher Very high risk LIPIDon 11-02-2023 Cholesterol [Mass/Vol] 162 mg/dL Normal 0-200 [facility] Comment on above: Result Comment: Chol esterol Reference Interval: Less than 200 Desirable 200-239 Borderline high risk 240 and above High risk Performed By: #### 1 , GFR, ANEU, CMP, ADIFF, TSH, PSA, CBC, LIPID, VIDH #### [place] [address] [place], [place] [address] #### FOL, B12 #### [facility] [address] [place] [address] Cholesterol in HDL [Mass/Vol] 40 mg/dL Normal 40-60 [facility] Comment on above: Performed By: #### 1 , GFR, ANEU, CMP, ADIFF, TSH, PSA, CBC, LIPID, VIDH #### [address] [address] #### FOL, B12 #### [address] [address] Cholesterol in LDL [Mass/Vol] 90 mg/dL Normal 0-130 [facility] Comment on above: Performed By: #### 1 , GFR, ANEU, CMP, ADIFF, TSH, PSA, CBC, LIPID, VIDH #### [address] [address] #### FOL, B12 #### [place] [address] Triglyceride [Mass/Vol] 158 mg/dL High 0-150 [facility] Comment on above: Result Comment: Trig lyceride Reference Interval: Less than 150 Normal 150-199 Borderline high risk 200-499 High risk 500 or higher Very high risk Performed By: #### 1 , GFR, ANEU, CMP, ADIFF, TSH, PSA, CBC, LIPID, VIDH #### [address] [address] #### FOL, B12 #### [place] [address] PSAon 11-02-2023 Prostate Specific Antigen 6.20 ng/mL High 0.00-4.00 [facility] Comment on above: Performed By: #### 1 , GFR, ANEU, CMP, ADIFF, TSH, PSA, CBC, LIPID, VIDH #### [address] [address] #### FOL, B12 #### [place] [address] TSHon 11-02-2023 TSH Qn 2.31 m[IU]/L Normal 0.36-3.74 [facility] Comment on above: Performed By: #### 1 , GFR, ANEU, CMP, ADIFF, TSH, PSA, CBC, LIPID, VIDH #### [address] [address] #### FOL, B12 #### [place] [id number] [place] [address] VIDHon 11-02-2023 Vit. D 25-Hydroxy 44.4 ng/mL Normal [facility] Comment on above: Result Comment: Inte rpretive Values Based on Total 25(OH) Vitamin D: Deficient <20 ng/mL Insufficient 20 - <30 ng/mL Sufficient 30-100 ng/mL Performed By: #### 1 [id number], GFR, ANEU, CMP, ADIFF, TSH, PSA, CBC, LIPID, VIDH #### [place] [id number] [place], [place] [address] #### FOL, B12 #### [place] [id number] XR KNEE THREE VIEWS RIGHTon 02-03-2023 XR KNEE THREE VIEWS RIGHT ORIGINAL EXAMINATION: THREE XRAY VIEWS OF THE RIGHT KNEE02/03/2023 8:48 am COMPARISON: None available HISTORY: ORDERING SYSTEM PROVIDED HISTORY: Reason for Exam: Right knee pain and swelling for 10 days, no trauma FINDINGS: No acute fracture or dislocation is identified. Bony alignment is maintained. Small tricompartmental calcifications are visualized. Rmme-hk-ohonntlb tricompartmental degenerative changes with joint space narrowing and osteophyte formation. There is a small suprapatellar joint effusion. Scattered vascular calcifications. The soft tissues are otherwise unremarkable. IMPRESSION: No acute fracture or dislocation. Small suprapatellar joint effusion. 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 I have personally reviewed the images of this examination and agree with the resident's findings and interpretation. Interpreted by: Elana Perez MD Preliminary Report By: Mary Ware Electronically signed By Elana Perez MD Dictated Date: 02/03/2023 8:49:56 AM Prelim Date: 02/03/2023 8:59:10 AM Sign Date: 02/03/2023 8:59:10 AM Ordering Provider: HUGH Shah [facility] ([place]) .Auto Diffon 12-21-2022 Basophil, Absolute 0.0 10 3/mcL Normal 0.0-0.2 [facility] ([place]) Comment on above: Performed By: #### G FR, ADIFF, LIPID, CBC, TSH, VIDH, ANEU, CMP, PSA, A1C #### [address] [address] Basophils/100 WBC (Bld) 0.6 % Normal 0.0-2.5 [facility] ([place]) Comment on above: Performed By: #### G FR, ADIFF, LIPID, CBC, TSH, VIDH, ANEU, CMP, PSA, A1C #### [address] [address] Eosinophil, Absolute 0.4 10 3/mcL Normal 0.0-0.4 [facility] ([place]) Comment on above: Performed By: #### G FR, ADIFF, LIPID, CBC, TSH, VIDH, ANEU, CMP, PSA, A1C #### [address] [address] Eosinophils/100 WBC (Bld) 7.6 % High 0.0-7.0 [facility] ([place]) Comment on above: Performed By: #### G FR, ADIFF, LIPID, CBC, TSH, VIDH, ANEU, CMP, PSA, A1C #### [address] [address] Lymphocyte, Absolute 1.6 10 3/mcL Normal 0.8-3.9 [facility] ([place]) Comment on above: Performed By: #### G FR, ADIFF, LIPID, CBC, TSH, VIDH, ANEU, CMP, PSA, A1C #### [address] [address] Lymphocytes/100 WBC (Bld) 26.7 % Normal 10.0-50.0 [facility] ([place]) Comment on above: Performed By: #### G FR, ADIFF, LIPID, CBC, TSH, VIDH, ANEU, CMP, PSA, A1C #### [address] [address] Monocyte, Absolute 0.5 10 3/mcL Normal 0.2-1.0 [facility] ([place]) Comment on above: Performed By: #### G FR, ADIFF, LIPID, CBC, TSH, VIDH, ANEU, CMP, PSA, A1C #### [address] [address] Monocytes/100 WBC (Bld) 8.4 % Normal 1.7-13.0 [facility] ([place]) Comment on above: Performed By: #### G FR, ADIFF, LIPID, CBC, TSH, VIDH, ANEU, CMP, PSA, A1C #### [address] [address] Neutrophils/100 WBC (Bld) 56.7 % Normal 37.0-80.0 [facility] ([place]) Comment on above: Performed By: #### G FR, ADIFF, LIPID, CBC, TSH, VIDH, ANEU, CMP, PSA, A1C #### [address] [address] .GFRon 12-21-2022 GFR Non- 53 ml/min/1.73sqm Normal [facility] ([place]) Comment on above: Result Comment: GFR Population mean for , Non- Americans Ages 20-29 = 116 mL/min/1.73 sq.m. Ages 30-39 = 107 mL/min/1.73 sq.m. Ages 40-49 = 99 mL/min/1.73 sq.m. Ages 50-59 = 93 mL/min/1.73 sq.m. Ages 60-69 = 85 mL/min/1.73 sq.m. Ages 70+ = 75 mL/min/1.73 sq.m. Chronic Kidney Disease: Less than 60 mL/min/1.73 square meters End Stage Renal Disease: Less than 15 mL/min/1.73 square meters Performed By: #### G FR, ADIFF, LIPID, CBC, TSH, VIDH, ANEU, CMP, PSA, A1C #### [address] [address] GFR 64 ml/min/1.73sqm Normal [facility] ([place]) Comment on above: Result Comment: GFR Population mean for , Non- Americans Ages 20-29 = 116 mL/min/1.73 sq.m. Ages 30-39 = 107 mL/min/1.73 sq.m. Ages 40-49 = 99 mL/min/1.73 sq.m. Ages 50-59 = 93 mL/min/1.73 sq.m. Ages 60-69 = 85 mL/min/1.73 sq.m. Ages 70+ = 75 mL/min/1.73 sq.m. Chronic Kidney Disease: Less than 60 mL/min/1.73 square meters End Stage Renal Disease: Less than 15 mL/min/1.73 square meters Performed By: #### G FR, ADIFF, LIPID, CBC, TSH, VIDH, ANEU, CMP, PSA, A1C #### [address] [address] .NEUABSon 12-21-2022 Neutrophil, Absolute 3.3 10 3/mcL Normal 2.9-6.2 [facility] ([place]) Comment on above: Performed By: #### G FR, ADIFF, LIPID, CBC, TSH, VIDH, ANEU, CMP, PSA, A1C #### [place] [id number] A1Con 12-21-2022 HbA1c (Bld) [Mass fraction] 10.1 % High 4.3-6.4 [facility] ([place]) Comment on above: Performed By: #### G FR, ADIFF, LIPID, CBC, TSH, VIDH, ANEU, CMP, PSA, A1C #### [address] [address] CBCon 12-21-2022 Erythrocyte distribution width (RBC) [Ratio] 12.6 % Normal 11.5-14.5 [facility] ([place]) Comment on above: Performed By: #### G FR, ADIFF, LIPID, CBC, TSH, VIDH, ANEU, CMP, PSA, A1C #### [address] [address] Hematocrit (Bld) [Volume fraction] 47.6 % Normal 42.0-52.0 [facility] ([place]) Comment on above: Performed By: #### G FR, ADIFF, LIPID, CBC, TSH, VIDH, ANEU, CMP, PSA, A1C #### [address] [place] [address] Hgb 16.3 G/dL Normal 14.0-18.0 [facility] ([place]) Comment on above: Performed By: #### G FR, ADIFF, LIPID, CBC, TSH, VIDH, ANEU, CMP, PSA, A1C #### [place] [id number] MCH (RBC) [Entitic mass] 31.6 pg High 27.0-31.2 [facility] ([place] Comment on above: Performed By: #### G FR, ADIFF, LIPID, CBC, TSH, VIDH, ANEU, CMP, PSA, A1C #### [place] [address] MCHC 34.3 G/dL Normal 31.8-35.4 [facility] ([place] Comment on above: Performed By: #### G FR, ADIFF, LIPID, CBC, TSH, VIDH, ANEU, CMP, PSA, A1C #### [place] [address] MCV (RBC) [Entitic vol] 92.2 fL Normal 80.0-94.0 [facility] ([place] Comment on above: Performed By: #### G FR, ADIFF, LIPID, CBC, TSH, VIDH, ANEU, CMP, PSA, A1C #### [place] [address] Platelet 177 10 3/mcL Normal 130-400 [facility] ([place]) Comment on above: Performed By: #### G FR, ADIFF, LIPID, CBC, TSH, VIDH, ANEU, CMP, PSA, A1C #### [place] [id number] Platelet mean volume (Bld) [Entitic vol] 9.8 fL Normal 7.4-10.4 [facility] ([place] Comment on above: Performed By: #### G FR, ADIFF, LIPID, CBC, TSH, VIDH, ANEU, CMP, PSA, A1C #### [place] [address] RBC 5.16 10 6/mcL Normal 4.04-6.13 [facility] ([place] Comment on above: Performed By: #### G FR, ADIFF, LIPID, CBC, TSH, VIDH, ANEU, CMP, PSA, A1C #### [address] [address] WBC 5.8 10 3/mcL Normal 4.6-10.8 [facility] ([place] Comment on above: Performed By: #### G FR, ADIFF, LIPID, CBC, TSH, VIDH, ANEU, CMP, PSA, A1C #### [address] [address] CMPon 12-21-2022 Albumin Level 3.9 G/dL Normal 3.4-4.8 [facility] ([place] Comment on above: Performed By: #### G FR, ADIFF, LIPID, CBC, TSH, VIDH, ANEU, CMP, PSA, A1C #### [address] [address] Albumin/Globulin [Mass ratio] 1.3 {ratio} Normal 1.1-2.5 [facility] ([place] Comment on above: Performed By: #### G FR, ADIFF, LIPID, CBC, TSH, VIDH, ANEU, CMP, PSA, A1C #### [address] [address] ALP [Catalytic activity/Vol] 36 U/L Low 40-135 [facility] ([place] Comment on above: Performed By: #### G FR, ADIFF, LIPID, CBC, TSH, VIDH, ANEU, CMP, PSA, A1C #### [address] [address] ALT [Catalytic activity/Vol] 20 U/L Normal 16-63 [facility] ([place] Comment on above: Performed By: #### G FR, ADIFF, LIPID, CBC, TSH, VIDH, ANEU, CMP, PSA, A1C #### [address] [address] AST [Catalytic activity/Vol] 12 U/L Normal 10-40 [facility] ([place] Comment on above: Performed By: #### G FR, ADIFF, LIPID, CBC, TSH, VIDH, ANEU, CMP, PSA, A1C #### [address] [address] Bili Total 0.7 mg/dL Normal 0.2-1.0 [facility] ([place]) Comment on above: Result Comment: Use of this assay is not recommended for patients undergoing treatment with eltrombopag due to the potential for falsely elevated results. Performed By: #### G FR, ADIFF, LIPID, CBC, TSH, VIDH, ANEU, CMP, PSA, A1C #### [address] [address] BUN/Creatinine Ratio 30 ratio High 7-27 [facility] ([place]) Comment on above: Performed By: #### G FR, ADIFF, LIPID, CBC, TSH, VIDH, ANEU, CMP, PSA, A1C #### [address] [address] Calcium [Mass/Vol] 9.5 mg/dL Normal 8.4-10.2 [facility] ([place]) Comment on above: Performed By: #### G FR, ADIFF, LIPID, CBC, TSH, VIDH, ANEU, CMP, PSA, A1C #### [address] [address] Chloride [Moles/Vol] 101 mmol/L Normal 98-107 [facility] ([place] Comment on above: Performed By: #### G FR, ADIFF, LIPID, CBC, TSH, VIDH, ANEU, CMP, PSA, A1C #### [address] [address] CO2 [Moles/Vol] 31 mmol/L Normal 23-31 [facility] ([place] Comment on above: Performed By: #### G FR, ADIFF, LIPID, CBC, TSH, VIDH, ANEU, CMP, PSA, A1C #### [address] [address] Creatinine [Mass/Vol] 1.33 mg/dL High 0.70-1.30 [facility] ([place]) Comment on above: Performed By: #### G FR, ADIFF, LIPID, CBC, TSH, VIDH, ANEU, CMP, PSA, A1C #### [address] [address] Electrolyte Balance 11.0 mEq/L Normal 4.0-15.0 [facility] ([place] Comment on above: Performed By: #### G FR, ADIFF, LIPID, CBC, TSH, VIDH, ANEU, CMP, PSA, A1C #### [address] [address] Globulin 2.9 G/dL Normal [facility] ([place] Comment on above: Performed By: #### G FR, ADIFF, LIPID, CBC, TSH, VIDH, ANEU, CMP, PSA, A1C #### [address] [address] Glucose [Mass/Vol] 259 mg/dL High 83-110 [facility] ([place]) Comment on above: Performed By: #### G FR, ADIFF, LIPID, CBC, TSH, VIDH, ANEU, CMP, PSA, A1C #### [address] [address] Potassium [Moles/Vol] 4.4 mmol/L Normal 3.5-5.1 [facility] ([place]) Comment on above: Performed By: #### G FR, ADIFF, LIPID, CBC, TSH, VIDH, ANEU, CMP, PSA, A1C #### [address] [address] Sodium [Moles/Vol] 143 mmol/L Normal 136-145 [facility] ([place] Comment on above: Performed By: #### G FR, ADIFF, LIPID, CBC, TSH, VIDH, ANEU, CMP, PSA, A1C #### [address] [address] Total Protein 6.8 G/dL Normal 6.4-8.2 [facility] ([place] Comment on above: Performed By: #### G FR, ADIFF, LIPID, CBC, TSH, VIDH, ANEU, CMP, PSA, A1C #### [address] [address] Urea nitrogen [Mass/Vol] 40 mg/dL High 7-18 [facility] ([place]) Comment on above: Performed By: #### G FR, ADIFF, LIPID, CBC, TSH, VIDH, ANEU, CMP, PSA, A1C #### [place] [id number] [place], [place] [address] LABORATORYOrdered By: SYSTEM SYSTEM on 12-21-2022 25-hydroxyvitamin D3 [Mass/Vol] 44.2 ng/mL Invalid Interpretation Code AO ADM SS Comment on above: Interpretive Data: I nterpretive Values Based on Total 25(OH) Vitamin D: Deficient <20 ng/mL Insufficient 20 - <30 ng/mL Sufficient 30-100 ng/mL Albumin BCP dye [Mass/Vol] 3.9 G/dL Invalid Interpretation Code 3.4 - 4.8 G/dL AO ADM SS Albumin/Globulin [Mass ratio] 1.3 {ratio} Invalid Interpretation Code 1.1 - 2.5 ratio AO ADM SS ALP [Catalytic activity/Vol] 36 U/L Invalid Interpretation Code 40 - 135 U/L AO ADM SS ALT With P-5'-P [Catalytic activity/Vol] 20 U/L Invalid Interpretation Code 16 - 63 U/L AO ADM SS AST With P-5'-P [Catalytic activity/Vol] 12 U/L Invalid Interpretation Code 10 - 40 U/L AO ADM SS Basophil, Absolute 0.0 103/mcL Invalid Interpretation Code 0.0 - 0.2 10^3/mcL AO Workflow SS Basophils/100 WBC (Bld) 0.6 % Invalid Interpretation Code 0.0 - 2.5 % AO Workflow SS Bilirubin [Mass/Vol] 0.7 mg/dL Invalid Interpretation Code 0.2 - 1.0 mg/dL AO ADM SS Comment on above: Interpretive Data: U se of this assay is not recommended for patients undergoing treatment with eltrombopag due to the potential for falsely elevated results. Calcium [Mass/Vol] 9.5 mg/dL Invalid Interpretation Code 8.4 - 10.2 mg/dL AO ADM SS Chloride [Moles/Vol] 101 mmol/L Invalid Interpretation Code 98 - 107 mmol/L AO ADM SS CO2 [Moles/Vol] 31 mmol/L Invalid Interpretation Code 23 - 31 mmol/L AO ADM SS Creatinine [Mass/Vol] 1.33 mg/dL Invalid Interpretation Code 0.70 - 1.30 mg/dL AO ADM SS Electrolyte Balance 11.0 mEq/L Invalid Interpretation Code 4.0 - 15.0 mEq/L AO ADM SS Eosinophil, Absolute 0.4 103/mcL Invalid Interpretation Code 0.0 - 0.4 10^3/mcL AO Workflow SS Eosinophils/100 WBC (Bld) 7.6 % Invalid Interpretation Code 0.0 - 7.0 % AO Workflow SS Erythrocyte distribution width (RBC) [Ratio] 12.6 % Invalid Interpretation Code 11.5 - 14.5 % AO Workflow SS GFR/1.73 sq M.predicted among blacks MDRD (S/P/Bld) [Vol rate/Area] 64 ml/min/1.73sqm Invalid Interpretation Code AO Chemistry S Comment on above: Interpretive Data: GFR Population mean for , Non- Americans Ages 20-29 = 116 mL/min/1.73 sq.m. Ages 30-39 = 107 mL/min/1.73 sq.m. Ages 40-49 = 99 mL/min/1.73 sq.m. Ages 50-59 = 93 mL/min/1.73 sq.m. Ages 60-69 = 85 mL/min/1.73 sq.m. Ages 70+ = 75 mL/min/1.73 sq.m. Chronic Kidney Disease: Less than 60 mL/min/1.73 square meters End Stage Renal Disease: Less than 15 mL/min/1.73 square meters GFR/1.73 sq M.predicted among non-blacks MDRD (S/P/Bld) [Vol rate/Area] 53 ml/min/1.73sqm Invalid Interpretation Code AO Chemistry S Comment on above: Interpretive Data: GFR Population mean for , Non- Americans Ages 20-29 = 116 mL/min/1.73 sq.m. Ages 30-39 = 107 mL/min/1.73 sq.m. Ages 40-49 = 99 mL/min/1.73 sq.m. Ages 50-59 = 93 mL/min/1.73 sq.m. Ages 60-69 = 85 mL/min/1.73 sq.m. Ages 70+ = 75 mL/min/1.73 sq.m. Chronic Kidney Disease: Less than 60 mL/min/1.73 square meters End Stage Renal Disease: Less than 15 mL/min/1.73 square meters Globulin 2.9 G/dL Invalid Interpretation Code AO ADM SS Glucose [Mass/Vol] 259 mg/dL Invalid Interpretation Code 83 - 110 mg/dL AO ADM SS HbA1c (Bld) [Mass fraction] 10.1 % Invalid Interpretation Code 4.3 - 6.4 % AO ADM SS Hematocrit (Bld) [Volume fraction] 47.6 % Invalid Interpretation Code 42.0 - 52.0 % AO Workflow SS Hemoglobin (Bld) [Mass/Vol] 16.3 G/dL Invalid Interpretation Code 14.0 - 18.0 G/dL AO Workflow SS Lymphocyte, Absolute 1.6 103/mcL Invalid Interpretation Code 0.8 - 3.9 10^3/mcL AO Workflow SS Lymphocytes/100 WBC (Bld) 26.7 % Invalid Interpretation Code 10.0 - 50.0 % AO Workflow SS MCH (RBC) [Entitic mass] 31.6 pg Invalid Interpretation Code 27.0 - 31.2 pg AO Workflow SS MCHC 34.3 G/dL Invalid Interpretation Code 31.8 - 35.4 G/dL AO Workflow SS MCV (RBC) [Entitic vol] 92.2 fL Invalid Interpretation Code 80.0 - 94.0 fL AO Workflow SS Monocyte, Absolute 0.5 103/mcL Invalid Interpretation Code 0.2 - 1.0 10^3/mcL AO Workflow SS Monocytes/100 WBC (Bld) 8.4 % Invalid Interpretation Code 1.7 - 13.0 % AO Workflow SS Neutrophil, Absolute 3.3 103/mcL Invalid Interpretation Code 2.9 - 6.2 10^3/mcL AO Workflow SS Neutrophils/100 WBC (Bld) 56.7 % Invalid Interpretation Code 37.0 - 80.0 % AO Workflow SS Platelet mean volume (Bld) [Entitic vol] 9.8 fL Invalid Interpretation Code 7.4 - 10.4 fL AO Workflow SS Platelets (Bld) [#/Vol] 177 103/mcL Invalid Interpretation Code 130 - 400 10^3/mcL AO Workflow SS Potassium [Moles/Vol] 4.4 mmol/L Invalid Interpretation Code 3.5 - 5.1 mmol/L AO ADM SS Prostate specific Ag [Mass/Vol] 4.34 ng/mL Invalid Interpretation Code 0.00 - 4.00 ng/mL AO ADM SS Protein [Mass/Vol] 6.8 G/dL Invalid Interpretation Code 6.4 - 8.2 G/dL AO ADM SS RBC (Bld) [#/Vol] 5.16 106/mcL Invalid Interpretation Code 4.04 - 6.13 10^6/mcL AO Workflow SS Sodium [Moles/Vol] 143 mmol/L Invalid Interpretation Code 136 - 145 mmol/L AO ADM SS TSH Qn 1.62 m[IU]/L Invalid Interpretation Code 0.36 - 3.74 mcIU/mL AO ADM SS Urea nitrogen [Mass/Vol] 40 mg/dL Invalid Interpretation Code 7 - 18 mg/dL AO ADM SS Urea nitrogen/Creatinine [Mass ratio] 30 ratio Invalid Interpretation Code 7 - 27 ratio AO ADM SS WBC (Bld) [#/Vol] 5.8 103/mcL Invalid Interpretation Code 4.6 - 10.8 10^3/mcL AO Workflow SS LABORATORYOrdered By: Odalis Chiang on 12-21-2022 Cholesterol [Mass/Vol] 208 mg/dL Invalid Interpretation Code 0 - 200 mg/dL AO ADM SS Comment on above: Interpretive Data: C holesterol Reference Interval: Less than 200 Desirable 200-239 Borderline high risk 240 and above High risk Cholesterol in HDL [Mass/Vol] 39 mg/dL Invalid Interpretation Code 40 - 60 mg/dL AO ADM SS Cholesterol in LDL [Mass/Vol] 132 mg/dL Invalid Interpretation Code 0 - 130 mg/dL AO ADM SS Triglyceride [Mass/Vol] 185 mg/dL Invalid Interpretation Code 0 - 150 mg/dL AO ADM SS Comment on above: Interpretive Data: T riglyceride Reference Interval: Less than 150 Normal 150-199 Borderline high risk 200-499 High risk 500 or higher Very high risk LIPIDon 12-21-2022 Cholesterol [Mass/Vol] 208 mg/dL High 0-200 [facility] ([place]) Comment on above: Result Comment: Chol esterol Reference Interval: Less than 200 Desirable 200-239 Borderline high risk 240 and above High risk Performed By: #### G FR, ADIFF, LIPID, CBC, TSH, VIDH, ANEU, CMP, PSA, A1C #### [address] [place] [address] [place], [place] [address] Cholesterol in HDL [Mass/Vol] 39 mg/dL Low 40-60 [facility] ([place]) Comment on above: Performed By: #### G FR, ADIFF, LIPID, CBC, TSH, VIDH, ANEU, CMP, PSA, A1C #### [address] [address] Cholesterol in LDL [Mass/Vol] 132 mg/dL High 0-130 [facility] ([place] Comment on above: Performed By: #### G FR, ADIFF, LIPID, CBC, TSH, VIDH, ANEU, CMP, PSA, A1C #### [address] [address] Triglyceride [Mass/Vol] 185 mg/dL High 0-150 [facility] ([place]) Comment on above: Result Comment: Trig lyceride Reference Interval: Less than 150 Normal 150-199 Borderline high risk 200-499 High risk 500 or higher Very high risk Performed By: #### G FR, ADIFF, LIPID, CBC, TSH, VIDH, ANEU, CMP, PSA, A1C #### [address] [address] PSAon 12-21-2022 Prostate Specific Antigen 4.34 ng/mL High 0.00-4.00 [facility] ([place]) Comment on above: Performed By: #### G FR, ADIFF, LIPID, CBC, TSH, VIDH, ANEU, CMP, PSA, A1C #### [address] [address] TSHon 12-21-2022 TSH Qn 1.62 m[IU]/L Normal 0.36-3.74 [facility] ([place]) Comment on above: Performed By: #### G FR, ADIFF, LIPID, CBC, TSH, VIDH, ANEU, CMP, PSA, A1C #### [address] [address] VIDHon 12-21-2022 Vit. D 25-Hydroxy 44.2 ng/mL Normal [facility] ([place]) Comment on above: Result Comment: Inte rpretive Values Based on Total 25(OH) Vitamin D: Deficient <20 ng/mL Insufficient 20 - <30 ng/mL Sufficient 30-100 ng/mL Performed By: #### G FR, ADIFF, LIPID, CBC, TSH, VIDH, ANEU, CMP, PSA, A1C #### [place] [id number] [place] [address] LABORATORYOrdered By: SYSTEM SYSTEM on 02-01-2022 Albumin BCP dye [Mass/Vol] 4.1 G/dL Invalid Interpretation Code 3.4 - 4.8 G/dL AO ADM SS Albumin/Globulin [Mass ratio] 1.3 {ratio} Invalid Interpretation Code 1.1 - 2.5 ratio AO ADM SS ALP [Catalytic activity/Vol] 45 U/L Invalid Interpretation Code 40 - 135 U/L AO ADM SS ALT With P-5'-P [Catalytic activity/Vol] 29 U/L Invalid Interpretation Code 16 - 63 U/L AO ADM SS AST With P-5'-P [Catalytic activity/Vol] 23 U/L Invalid Interpretation Code 10 - 40 U/L AO ADM SS Bilirubin [Mass/Vol] 1.2 mg/dL Invalid Interpretation Code 0.2 - 1.0 mg/dL AO ADM SS Calcium [Mass/Vol] 10.2 mg/dL Invalid Interpretation Code 8.4 - 10.2 mg/dL AO ADM SS Chloride [Moles/Vol] 102 mmol/L Invalid Interpretation Code 98 - 107 mmol/L AO ADM SS CO2 [Moles/Vol] 27 mmol/L Invalid Interpretation Code 23 - 31 mmol/L AO ADM SS Creatinine [Mass/Vol] 0.98 mg/dL Invalid Interpretation Code 0.70 - 1.30 mg/dL AO ADM SS Electrolyte Balance 14.0 mEq/L Invalid Interpretation Code 4.0 - 15.0 mEq/L AO ADM SS GFR 92 ml/min/1.73sqm Invalid Interpretation Code AO Chemistry S GFR Non- 76 ml/min/1.73sqm Invalid Interpretation Code AO Chemistry S Globulin 3.1 G/dL Invalid Interpretation Code AO ADM SS Glucose [Mass/Vol] 157 mg/dL Invalid Interpretation Code 83 - 110 mg/dL AO ADM SS Potassium [Moles/Vol] 4.0 mmol/L Invalid Interpretation Code 3.5 - 5.1 mmol/L AO ADM SS Protein [Mass/Vol] 7.2 G/dL Invalid Interpretation Code 6.4 - 8.2 G/dL AO ADM SS Sodium [Moles/Vol] 143 mmol/L Invalid Interpretation Code 136 - 145 mmol/L AO ADM SS TSH Qn 2.00 m[IU]/L Invalid Interpretation Code 0.36 - 3.74 mcIU/mL AO ADM SS Urea nitrogen [Mass/Vol] 26 mg/dL Invalid Interpretation Code 7 - 18 mg/dL AO ADM SS Urea nitrogen/Creatinine [Mass ratio] 27 ratio Invalid Interpretation Code 7 - 27 ratio AO ADM SS Vit. D 25-Hydroxy 34.0 ng/mL Invalid Interpretation Code AO ADM SS LABORATORYOrdered By: Enrique Pedraza on 02-01-2022 Basophil, Absolute 0.0 103/mcL Invalid Interpretation Code 0.0 - 0.2 10^3/mcL AO Workflow SS Basophils/100 WBC (Bld) 0.2 % Invalid Interpretation Code 0.0 - 2.5 % AO Workflow SS Eosinophil, Absolute 0.3 103/mcL Invalid Interpretation Code 0.0 - 0.4 10^3/mcL AO Workflow SS Eosinophils/100 WBC (Bld) 4.5 % Invalid Interpretation Code 0.0 - 7.0 % AO Workflow SS Erythrocyte distribution width (RBC) [Ratio] 13.0 % Invalid Interpretation Code 11.5 - 14.5 % AO Workflow SS Hematocrit (Bld) [Volume fraction] 50.1 % Invalid Interpretation Code 42.0 - 52.0 % AO Workflow SS Hemoglobin (Bld) [Mass/Vol] 17.3 G/dL Invalid Interpretation Code 14.0 - 18.0 G/dL AO Workflow SS Lymphocyte, Absolute 1.2 103/mcL Invalid Interpretation Code 0.8 - 3.9 10^3/mcL AO Workflow SS Lymphocytes/100 WBC (Bld) 17.7 % Invalid Interpretation Code 10.0 - 50.0 % AO Workflow SS MCH (RBC) [Entitic mass] 31.2 pg Invalid Interpretation Code 27.0 - 31.2 pg AO Workflow SS MCHC 34.4 G/dL Invalid Interpretation Code 31.8 - 35.4 G/dL AO Workflow SS MCV (RBC) [Entitic vol] 90.6 fL Invalid Interpretation Code 80.0 - 94.0 fL AO Workflow SS Monocyte, Absolute 0.5 103/mcL Invalid Interpretation Code 0.2 - 1.0 10^3/mcL AO Workflow SS Monocytes/100 WBC (Bld) 7.2 % Invalid Interpretation Code 1.7 - 13.0 % AO Workflow SS Neutrophil, Absolute 4.6 103/mcL Invalid Interpretation Code 2.9 - 6.2 10^3/mcL AO Workflow SS Neutrophils/100 WBC (Bld) 70.4 % Invalid Interpretation Code 37.0 - 80.0 % AO Workflow SS Platelet mean volume (Bld) [Entitic vol] 9.7 fL Invalid Interpretation Code 7.4 - 10.4 fL AO Workflow SS Platelets (Bld) [#/Vol] 168 103/mcL Invalid Interpretation Code 130 - 400 10^3/mcL AO Workflow SS RBC (Bld) [#/Vol] 5.53 106/mcL Invalid Interpretation Code 4.04 - 6.13 10^6/mcL AO Workflow SS WBC (Bld) [#/Vol] 6.5 103/mcL Invalid Interpretation Code 4.6 - 10.8 10^3/mcL AO Workflow SS LABORATORYOrdered By: Enrique Pedraza on 07-20-2021 Albumin DL <= 20 mg/L (U) [Mass/Vol] [address] mcg/dL Invalid Interpretation Code AO ADM SS Albumin/Creatinine DL <= 20 mg/L (U) [Mass ratio] 226 mcg/mg Invalid Interpretation Code 0 - 30 mcg/mg AO ADM SS Creatinine (U) [Mass/Vol] 96.7 mg/dL Invalid Interpretation Code 39.0 - 259.0 mg/dL AO ADM SS Albumin BCP dye [Mass/Vol] 4.2 G/dL Invalid Interpretation Code 3.4 - 4.8 G/dL AO ADM SS Albumin/Globulin [Mass ratio] 1.5 {ratio} Invalid Interpretation Code 1.1 - 2.5 ratio AO ADM SS ALP [Catalytic activity/Vol] 41 U/L Invalid Interpretation Code 40 - 135 U/L AO ADM SS ALT With P-5'-P [Catalytic activity/Vol] 17 U/L Invalid Interpretation Code 16 - 63 U/L AO ADM SS AST With P-5'-P [Catalytic activity/Vol] 11 U/L Invalid Interpretation Code 10 - 40 U/L AO ADM SS Bilirubin [Mass/Vol] 0.9 mg/dL Invalid Interpretation Code 0.2 - 1.0 mg/dL AO ADM SS Calcium [Mass/Vol] 9.7 mg/dL Invalid Interpretation Code 8.4 - 10.2 mg/dL AO ADM SS Chloride [Moles/Vol] 104 mmol/L Invalid Interpretation Code 98 - 107 mmol/L AO ADM SS Cholesterol [Mass/Vol] 184 mg/dL Invalid Interpretation Code 0 - 200 mg/dL AO ADM SS Cholesterol in HDL [Mass/Vol] 40 mg/dL Invalid Interpretation Code 40 - 60 mg/dL AO ADM SS Cholesterol in LDL [Mass/Vol] 127 mg/dL Invalid Interpretation Code 0 - 130 mg/dL AO ADM SS CO2 [Moles/Vol] 31 mmol/L Invalid Interpretation Code 23 - 31 mmol/L AO ADM SS Creatinine [Mass/Vol] 1.38 mg/dL Invalid Interpretation Code 0.70 - 1.30 mg/dL AO ADM SS Electrolyte Balance 8.0 mEq/L Invalid Interpretation Code 4.0 - 15.0 mEq/L AO ADM SS Globulin 2.8 G/dL Invalid Interpretation Code AO ADM SS Glucose [Mass/Vol] 187 mg/dL Invalid Interpretation Code 83 - 110 mg/dL AO ADM SS Potassium [Moles/Vol] 4.1 mmol/L Invalid Interpretation Code 3.5 - 5.1 mmol/L AO ADM SS Prostate specific Ag [Mass/Vol] 5.30 ng/mL Invalid Interpretation Code 0.00 - 4.00 ng/mL AO ADM SS Protein [Mass/Vol] 7.0 G/dL Invalid Interpretation Code 6.4 - 8.2 G/dL AO ADM SS Sodium [Moles/Vol] 143 mmol/L Invalid Interpretation Code 136 - 145 mmol/L AO ADM SS Triglyceride [Mass/Vol] 84 mg/dL Invalid Interpretation Code 0 - 150 mg/dL AO ADM SS TSH Qn 1.37 m[IU]/L Invalid Interpretation Code 0.36 - 3.74 mcIU/mL AO ADM SS Urea nitrogen [Mass/Vol] 39 mg/dL Invalid Interpretation Code 7 - 18 mg/dL AO ADM SS Urea nitrogen/Creatinine [Mass ratio] 28 ratio Invalid Interpretation Code 7 - 27 ratio AO ADM SS LABORATORYOrdered By: Ceasar Rice on 07-20-2021 Basophil, Absolute 0.0 103/mcL Invalid Interpretation Code 0.0 - 0.2 10^3/mcL AO Workflow SS Basophils/100 WBC (Bld) 0.5 % Invalid Interpretation Code 0.0 - 2.5 % AO Workflow SS Eosinophil, Absolute 0.5 103/mcL Invalid Interpretation Code 0.0 - 0.4 10^3/mcL AO Workflow SS Eosinophils/100 WBC (Bld) 9.3 % Invalid Interpretation Code 0.0 - 7.0 % AO Workflow SS Erythrocyte distribution width (RBC) [Ratio] 12.6 % Invalid Interpretation Code 11.5 - 14.5 % AO Workflow SS Hematocrit (Bld) [Volume fraction] 47.7 % Invalid Interpretation Code 42.0 - 52.0 % AO Workflow SS Hgb 16.5 G/dL Invalid Interpretation Code 14.0 - 18.0 G/dL AO Workflow SS Lymphocyte, Absolute 1.0 103/mcL Invalid Interpretation Code 0.8 - 3.9 10^3/mcL AO Workflow SS Lymphocytes/100 WBC (Bld) 19.2 % Invalid Interpretation Code 10.0 - 50.0 % AO Workflow SS MCH (RBC) [Entitic mass] 31.5 pg Invalid Interpretation Code 27.0 - 31.2 pg AO Workflow SS MCHC 34.6 G/dL Invalid Interpretation Code 31.8 - 35.4 G/dL AO Workflow SS MCV (RBC) [Entitic vol] 90.8 fL Invalid Interpretation Code 80.0 - 94.0 fL AO Workflow SS Monocyte, Absolute 0.4 103/mcL Invalid Interpretation Code 0.2 - 1.0 10^3/mcL AO Workflow SS Monocytes/100 WBC (Bld) 8.1 % Invalid Interpretation Code 1.7 - 13.0 % AO Workflow SS Neutrophil, Absolute 3.3 103/mcL Invalid Interpretation Code 2.9 - 6.2 10^3/mcL AO Workflow SS Neutrophils/100 WBC (Bld) 62.9 % Invalid Interpretation Code 37.0 - 80.0 % AO Workflow SS Platelet 189 103/mcL Invalid Interpretation Code 130 - 400 10^3/mcL AO Workflow SS Platelet mean volume (Bld) [Entitic vol] 9.8 fL Invalid Interpretation Code 7.4 - 10.4 fL AO Workflow SS RBC 5.26 106/mcL Invalid Interpretation Code 4.04 - 6.13 10^6/mcL AO Workflow SS WBC 5.3 103/mcL Invalid Interpretation Code 4.6 - 10.8 10^3/mcL AO Workflow SS LABORATORYOrdered By: SYSTEM SYSTEM on 07-20-2021 GFR 62 ml/min/1.73sqm Invalid Interpretation Code AO Chemistry S GFR Non- 51 ml/min/1.73sqm Invalid Interpretation Code AO Chemistry S Monocyte distribution width Auto (Bld) [Entitic vol] Not Performed 1 *NA* (07/20/21 10:17 AM) Invalid Interpretation Code 0.00 - 20.00 AO Hematology S Comment on above: Result Comment: MDW testing performed only on adult ER patients between the ages of 18-89 years. Vital Signs Date Time Vital Sign Value Performing Clinician Facility 06-18-2024 00:00-0400 Body temperature 98 [degF] Dr. Elana Hickman DO Work Phone: [facility] 06-18-2024 00:00-0400 Diastolic blood pressure 76 mm[Hg] Dr. Elana Hickman DO Work Phone: [facility] 06-18-2024 00:00-0400 Heart rate 75 /min Dr. Elana Hickman DO Work Phone: [facility] 06-18-2024 00:00-0400 Respiratory rate 18 /min Dr. Elana Hickman DO Work Phone: [facility] 06-18-2024 00:00-0400 SaO2% (BldA) [Mass fraction] 98 % Dr. Elana Hickman DO Work Phone: [facility] 06-18-2024 00:00-0400 Systolic blood pressure 120 mm[Hg] Dr. Elana Hickman DO Work Phone: [facility] 06-17-2024 20:44-0400 Body height 180.[address] Elana Hickman DO Work Phone: [facility] 06-17-2024 20:44-0400 Body mass index (BMI) [Ratio] 32.5 kg/m2 Dr. Elana Hickman DO Work Phone: [facility] 06-17-2024 20:44-0400 Body weight 105.[address] Elana Hickman DO Work Phone: [facility] 02-03-2023 08:03-0500 Body height 180.3 cm HUGH MOREL MD [facility] 02-03-2023 08:03-0500 Body temperature 98.42 [degF] HUGH MOREL MD [facility] 02-03-2023 08:03-0500 Body weight 95.5 kg HUGH MOREL MD [facility] 02-03-2023 08:03-0500 Diastolic Blood Pressure Non-Invasive 91 mm[Hg] HUGH MOREL MD [facility] 02-03-2023 08:03-0500 Heart rate 76 /min HUGH MOREL MD [facility] 02-03-2023 08:03-0500 Respiratory rate 20 /min HUGH MOREL MD [facility] 02-03-2023 08:03-0500 Systolic Blood Pressure Non-Invasive 165 mm[Hg] HUGH MOREL MD [facility] 10-28-2022 02:30-0400 Body height 180.34 cm [facility] 10-28-2022 02:30-0400 Body mass index (BMI) [Ratio] 31.1 kg/m2 [facility] 10-28-2022 02:30-0400 Body temperature 97.6 [degF] [facility] 10-28-2022 02:30-0400 Body weight 101.3 kg [facility] 10-28-2022 02:30-0400 Diastolic blood pressure 109 mm[Hg] [facility] 10-28-2022 02:30-0400 Heart rate 76 /min [facility] 10-28-2022 02:30-0400 Respiratory rate 20 /min [facility] 10-28-2022 02:30-0400 SaO2% (BldA) [Mass fraction] 95 % [facility] 10-28-2022 02:30-0400 Systolic blood pressure 188 mm[Hg] [facility] 10-25-2022 05:19-0400 Body temperature 98.24 [degF] DR ROBE KUO MD [facility] 10-25-2022 05:19-0400 Diastolic Blood Pressure Non-Invasive [address] ROBE KUO MD [facility] 10-25-2022 05:19-0400 Heart rate 83 /min DR ROBE KUO MD [facility] 10-25-2022 05:19-0400 Respiratory rate 18 /min DR ROBE KUO MD [facility] 10-25-2022 05:19-0400 Systolic Blood Pressure Non-Invasive [address] ROBE KUO MD [facility] Encounters Encounter Date Encounter Type Care Provider Facility Start: 09-10-2024 End: 09-10-[address] Jeffy Morgan DPM -Laboratory Specimen Work Phone: Start: 09-10-2024 End: 09-10-2024 ambulatory Jeffy Morgan Facility:[facility] Start: 06-17-2024 End: 06-18-2024 Emergency department patient visit Neville Swan Facility:[facility] Start: 06-11-2024 End: 06-11-[address] Jeffy Morgan DPMauro -Laboratory Specimen Work Phone: Start: 06-11-2024 End: 06-11-2024 ambulatory Elana Hickman Facility:[facility] Start: 05-21-2024 End: 05-21-2024 ambulatory ELANA HICKMAN DO Facility:[facility] Start: 05-21-2024 Encounter for genera l adult medical examination without abnormal findings ELANA HICKMAN DO [facility] Start: 04-03-2024 End: 04-12-2024 ambulatory [facility] Facility:[facility] Start: 03-13-2024 End: 03-15-2024 ambulatory [facility] Facility:[facility] Start: 03-05-2024 End: 03-05-[address] AHMET LARSON DPM [facility] Start: 03-05-2024 End: 03-05-[address] AHMET LARSON DPM [facility] Start: 01-30-2024 End: 01-30-2024 Emergency department patient visit Elana Hickman Facility:[facility] Start: 11-02-2023 End: 11-06-2023 ambulatory ELANA VICK VICK Facility:[facility] Start: 11-02-2023 End: 11-06-2023 Outreach Lab ELANA HICKMAN DO [facility] Start: 02-03-2023 End: 02-03-2023 Emergency department patient visit HUGH MOREL MD Facility:[facility] Start: 02-03-2023 End: 02-03-2023 Emergency department patient visit HUGH MOREL MD [facility] Start: 12-21-2022 End: 12-22-2022 ambulatory ELANA HICKMAN DO Facility:[facility] Start: 12-21-2022 End: 12-21-2022 Patient encounter procedure ELANA HICKMAN DO [facility] Start: 11-12-2022 End: 12-06-2022 ambulatory MANUEL 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 Facility:[facility] Start: 10-28-2022 End: 10-28-2022 Emergency department patient visit [facility] Work Phone: Start: 10-25-2022 End: 10-25-2022 Emergency department patient visit ELANA HICKMAN DO Facility:[facility] Start: 10-25-2022 End: 10-25-2022 Emergency department patient visit DR ROBE KUO MD [facility] Start: 02-01-2022 End: 02-01-2022 Patient encounter procedure ELANA HICKMAN DO [facility] Start: 07-20-2021 End: 07-20-2021 Patient encounter procedure ELANA HICKMAN DO [facility] Start: 05-14-2021 End: 05-14-2021 Patient encounter procedure ELANA VICK VICK [facility] Procedures Date Procedure Procedure Detail Performing Clinician Start: 09-10-2024 Gram stain microscopy Harpreet Hickman DO Work Phone: Start: 09-10-2024 Microbial culture, routine Dr. Elana Hickman DO Work Phone: Start: 06-17-2024 Plain x-ray of elbow Dr Italo Hickman DO Work Phone: Start: 06-17-2024 X-ray of knee, four or more views Dr[address] Elana Hickman DO Work Phone: Start: 06-17-2024 CT of chest without contrast Dr. Elana Hickman DO Work Phone: Start: 06-11-2024 Gram stain microscopy Harpreet Hickman DO Work Phone: Start: 06-11-2024 End: 06-11-2024 Microbial culture, routine Dr. Elana price DO Work Phone: Start: 10-28-2022 CT cervical spine wi thout contrast Start: 10-28-2022 Plain X-ray of shoulder Appendectomy ELANA Moreno History of appendectomy h/o appendectomy Plan of Treatment Date Care Activity Detail Author Start: 06-18-2024 [facility] Patient Education [facility] Work Phone: Patient referral [facility] Work Phone: Immunizations Immunization Date Immunization Notes Care Provider Nery mckeon 02-28-2021 tetanus toxoid, redu milo diphtheria toxoid, and acellular pertussis vaccine, adsorbed ELANA VICK DO [facility] Payers Date Payer Category Payer Medicare [id number] 2023 Medicare [id number] 2023 Self-pay [id number] 2023 Unknown [id number] 2023 Unknown [id number] 2022 Unknown [id number] 2015 Private Health Insurance [id number] 1950 Unknown [id number] 27 1950 Unknown [id number] 27 1950 Unknown [id number] 27 1950 Unknown [id number] [id number] 27 1950 Unknown [id number] 27 1950 Unknown [id number] 27 Private Health Insurance [facility] [id number] Unknown [id number] 62 Unknown [id number] 62 Unknown [id number] [id number] 62 Unknown [id number] [id number] 62 Unknown [id number] 62 Unknown [id number] 62 Social History Date Type Detail Facility Start: 11-12-2018 End: 06-17-2024 Tobacco smoking status Never smoked tobacco (finding) [facility] Start: 1950 Sex Assigned At Male A [facility] Start: 10-28-2022 Tobacco smoking stat [facility] Unknown if ever smoked [facility] Sexual Orientation [facility] Start: 08-08-2018 Sex Male (finding) [facility] Medical Equipment Procedure Code Equipment Code Equipment Origin al Text Equipment Identifier Dates See Instructions , # 100 strip, Refill #: 3 Total Refills: 3, USE 3 TIMES A DAY DIRECTED, [facility]/pharmacy #[id number] Start: 12-06-2018 See Instructions , # 100 strip, Refill #: 3 Total Refills: 3, USE 3 TIMES A DAY DIRECTED, [facility]/pharmacy #[id number] Start: 12-06-2018 See Instructions , 1 bottle of 100. Freestyle Lite. Testing BID. dx: e11.65, # 1 EA, 11 Refill(s), Pharmacy: [facility]/pharmacy #[id number], 179, cm, 08/24/21 11:25:00 EDT, Height, 101.5 Start: 01-21-2022 See Instructions , 1 bottle of 100. Freestyle Lite. Testing BID. dx: e11.65, # 1 EA, 11 Refill(s), Pharmacy: [facility]/pharmacy #[id number], 180.3, cm, 06/14/22 11:34:00 EDT, Height, 99.2, kg, 06/14/22 11:34:00 EDT, Dosing Weight Start: 09-29-2022 See Instructions , 1 bottle of 100. Freestyle Lite. Testing BID. dx: e11.65, # 1 EA, 11 Refill(s), [id number], 180.3, cm, 06/14/22 11:34:00 EDT, Height, 99.2, kg, 06/14/22 11:34:00 EDT, Dosing Weight Start: 09-29-2022 See Instructions , 1 bottle of 100. Freestyle Lite. Testing BID. dx: e11.65, # 1 EA, 11 Refill(s), [id number], 180.3, cm, 06/14/22 11:34:00 EDT, Height, 99.2, kg, 06/14/22 11:34:00 EDT, Dosing Weight Start: 09-29-2022 See Instructions , 1 bottle of 100. Freestyle Lite. Testing BID. dx: e11.65, # 1 EA, 11 Refill(s), Pharmacy: [facility], 177.5, cm, 05/23/23 11:39:00 EDT, Height, 104, kg, 05/23/23 11:39:00 EDT, Dosing Weight Start: 05-29-2023 See Instructions , Insulin Syringes 1cc 31G /16in - use ud with insulin Use [facility] [address]-61, # 100 EA, 3 Refill(s), Pharmacy: [facility], 177.5, cm, 05/23/23 11:39:00 EDT, Height, 104, kg, 05/23/23 11:39:00 EDT, Dosing Weight Start: 10-31-2023 Functional Status Date Assessment Result Facility 02-03-2023 Functional Status Assistive Leah ce None, Wheelchair [facility] 02-03-2023 Functional Status Repositions self [facility] Mental Status Date Assessment Result Facility 02-03-2023 Mental Status Orientation Oriented x 4 [facility] 02-03-2023 Mental Status [facility] 10-25-2022 Mental Status Oriented x 4 [facility] Clinical Notes 10-25-2022 to 03-05-2024 Note Date & Type Note Facility 03-05-2024 Note Exam Date Time Procedure Performing Provider Status 03/05/24 11:56 AM VL Arterial Dopplers Both Legs Rest/PVR- MCKENNA PHILLIP MD; Auth (Verified) [facility]12-22-2023 Hospital Discharge instructions Patient Education 02/03/2023 09:12:23 Knee Pain of Uncertain Cause Knee Pain with Uncertain Cause There are several common causes for knee pain. These can include: A sprain of the ligaments that support the joint An injury to the cartilage lining of the joint Arthritis from smyl-ucb-xlnp or inflammation There are other causes as well. There may also be swelling, reduced movement of the knee joint, andpain with walking. A definite diagnosis will still need to be made. If your symptoms don't improve,further follow-up and testing may be needed. Home care Stay off the injured leg as much as possible until pain improves. Apply an ice pack over the injured area for 15 to 20 minutes every 3 to 6 hours. You should do thisfor the first 24 to 48 hours. You can make an ice pack by filling a plastic bag that seals at the top with ice cubes and then wrapping it with a thin towel. Continue to use ice packs for relief of pain and swelling as needed. As the ice melts, be careful not to get your wrap, splint, or cast wet. After 48 hours, apply heat (warm shower or warm bath) for 15 to 20 minutes several times a day, or alternate ice and heat. If you have to wear a wgah-xwg-usfa knee brace, you can open it to apply the ice pack, or heat, directly to the knee. Never put ice directly on the skin. Always wrap the ice in atowel or other type of cloth. You may use ijpd-ady-zyvtnaq pain medicine to control pain, unless another pain medicine was prescribed. If you have chronic liver or kidney disease or ever had a stomach ulcer or gastrointestinal bleeding, talk with your healthcare provider before using these medicines. If crutches or a walker have been recommended, don't put weight on the injured leg until you can doso without pain. Check with your healthcare provider before returning to sports or full work duties. If you have a oppy-shb-flmi knee brace, you can remove it to bathe and sleep, unless told otherwise. Follow-up care Follow up with your healthcare provider as advised. This is usually within 1 to 2 weeks. If X-rays were taken, you will be told of any new findings that may affect your care Call 911 Call 911 if you have: Shortness of breath Chest pain When to seek medical advice Call your healthcare provider right away if any of these occur: Toes or foot becomes swollen, cold, blue, numb, or tingly Pain or swelling spreads over the knee or calf Warmth or redness appears over the knee or calf Other joints become painful Rash appears Fever of 100.4 F (38 C) or higher, or as directed by your healthcare provider [place] [id number] [employer]. [address] [place] [address]. All rights reserved. This information is not intended as a substitute for professional medical care. Always follow yourhealthcare professional's instructions. Follow Up Care 02/03/2023 07:52:23 With:DO ELANA MONTANA DO Address: [address] [place] [address] [address] [place] [address] When:5 to 7 days With:ELANA HICKMAN DO Address: [address] [facility] [place], [place] [phone] When:2-4 days [facility] 12-22-2023 Note Discharge Instructions Thank you for allowing [facility] to assist you with your healthcare needs. The following is importantdischarge information regarding your hospital visit. Diagnosis from Today's Visit Leg pain Leg pain-swelling What to Do Next Instructions from Your Care Team No qualifying data available. Post Acute Orders No qualifying data available. You Need to Schedule the Following Appointments Follow Up with DO ELANA MONTANA DO When Within 5 to 7 days Where: [address] [place] [address] [address] [place] [address] Follow Up with ELANA HICKMAN DO When Within 2-4 days Where: [address] [facility] [place] [phone] Allergies Statins (Myalgia) Medications Please ask your primary doctor or pharmacist before taking any other medication not listed, including over the counter drugs, herbal medications, vitamins and or supplements as they may interact withyour home medications. What How Much When Why Instructions Last Dose New traMADol (traMADol 50 mg oral tablet) 1 tab(s) by mouth Every 12 hours as needed for for pain Leg pain Duration: 3 Days Printed Prescription Unchanged acetaminophen (acetaminophen 500 mg oral tablet) 2 tab(s) by mouth Every 6 hours Unchanged carbidopa-levodopa (carbidopa-levodopa 25 mg-250 mg oral tablet) 2 tab(s) by mouth Two (2) times a day Duration: 90 Days TAKE 2 TABLETS BY MOUTH TWICE A DAY Unchanged cholecalciferol (cholecalciferol 50 mcg (2000 intl units) oral tablet) 1 tab(s) by mouth Every day Duration: 90 Days Unchanged cyclobenzaprine (cyclobenzaprine 10 mg oral tablet) 1 tab(s) by mouth Three (3) times a day Duration: 30 Days Unchanged DME (Blood Glucose Test Strips) See instructions 1 bottle of 100. Freestyle Lite. Testing BID. dx: e11.65 Unchanged DME (DME MISCellaneous) See instructions 1 EA = DEXCOM continuous glucose transmitor; Dx E11.65, Z79.4, G20 Unchanged DME (DME MISCellaneous) See instructions 7 EA = 7 DEXCOM continuous glucose senosrs, to replace every 2 weeks, for 90 day supply; Dx E11.65,Z79.4, G20 Unchanged DME (DME MISCellaneous) See instructions Type 2 diabetes mellitus with hyperglycemia Parkinsons disease 1 EA = DEXCOM continuous glucose methods analyst data processing; Dx E11.65, Z79.4, G20 Unchanged empagliflozin (empagliflozin 25 mg oral tablet) 1 tab(s) by mouth Once a day (in the morning) Duration: 90 Days Unchanged gabapentin (gabapentin 100 mg oral capsule) 1 cap by mouth Three (3) times a day Unchanged glimepiride (glimepiride 4 mg oral tablet) 1 tab(s) by mouth Once a day Uncontrolled type 2 diabetes mellitus with peripheral neuropathy Duration: 90 Days Unchanged hydrochlorothiazide-lisinopril (hydrochlorothiazide-lisinopril 25 mg- 20 mg oral tablet) 1 tab(s) by mouth Every day Duration: 90 Days Unchanged insulin isophane (NPH) - insulin regular (HumuLIN 70/ 30 10 mL vial) 32 unit(s) Subcutaneous Two (2) times a day Duration: 90 Days Unchanged omeprazole (omeprazole 20 mg oral delayed release capsule) 1 cap by mouth Once a day Duration: 90 Days Unchanged pravastatin (pravastatin 20 mg oral tablet) 1 tab(s) by mouth Every other day Unchanged propranolol (propranolol 20 mg oral tablet) 1 tab(s) by mouth Two (2) times a day Duration: 90 Days Unchanged tamsulosin (tamsulosin 0.4 mg oral capsule) 1 cap by mouth Once a day Duration: 90 Days Please take this list to your next doctor s visit. Bring all medications you take, including over the counter medications, herbals and other supplements with you to your doctor s visit. Patients and families are reminded to discard old lists and to update any records with all medication providers or retail pharmacies. Medication Leaflets tramadol (TRAM a dol) Travis Shea, TraMADol Hydrochloride ER (Eqv-Ryzolt), TraMADol Hydrochloride ER (Eqv-Ultram ER), Ultram What is the most important information I should know about tramadol? MISUSE OF THIS MEDICINE CAN CAUSE ADDICTION, OVERDOSE, OR . Keep this medicine where others cannot get to it. Tramadol should not be given to a child younger than 12 years old, or anyone younger than 18 years old who recently had surgery to remove the tonsils or adenoids. Ultram ER should not be given to anyone younger than 18 years old. Taking tramadol during may cause life-threatening withdrawal symptoms in the . Fatal side effects may occur if you use also use alcohol or other drugs that cause drowsiness or slow breathing. What is tramadol? Tramadol is an pain medicine similar to an opioid. Tramadol is used to treat moderate to severe pain. The extended-release form of tramadol is for hgrkym-oxb-fpkjs treatment of pain. This form of tramadol is not for use on an as-needed basis for pain. Tramadol may also be used for purposes not listed in this medication guide. What should I discuss with my healthcare provider before taking tramadol? You should not take tramadol if you are allergic to it, or if you have: severe asthma or breathing problems; a stomach or bowel obstruction (including paralytic ileus); if you have recently used alcohol, sedatives, tranquilizers, or narcotic medications; or if you have used an MAO inhibitor in the past 14 days (such as isocarboxazid, linezolid, methylene blue injection, phenelzine, or tranylcypromine). Tramadol should not be given to a child younger than 12 years old. Ultram ER should not be given toanyone younger than 18 years old. Do not give tramadol to anyone younger than 18 years old who recently had surgery to remove the tonsils or adenoids. Seizures have occurred in some people taking tramadol. Your seizure risk may be higher if you have ever had: a head injury, epilepsy or other seizure disorder; drug or alcohol addiction; or a metabolic disorder. Tell your doctor if you have ever had: breathing problems, sleep apnea; liver or kidney disease; urination problems; problems with your gallbladder, pancreas, or thyroid; a stomach disorder; or mental illness, or suicide attempt. If you use tramadol during , your baby could be born with life- threatening withdrawal symptoms, and may need medical treatment for several weeks. Ask a doctor before using tramadol if you are . Tell your doctor if you notice severe drowsiness or slow breathing in the nursing baby. How should I take tramadol? Follow the directions on your prescription label and read all medication guides. Never use tramadolin larger amounts, or for longer than prescribed. Tell your doctor if you feel an increased urge totake more of this medicine. Never share tramadol with another person, especially someone with a history of drug addiction. MISUSE CAN CAUSE ADDICTION, OVERDOSE, OR . Keep the medicine where others cannot get to it. Sellingor giving away this medicine is against the law. Stop taking all other opioid medications when you start taking tramadol. Tramadol can be taken with or without food, but take it the same way each time. Swallow the capsule or tablet whole to avoid exposure to a potentially fatal overdose. Do not crush, chew, break, open, or dissolve. Measure liquid medicine with the supplied syringe or a dose-measuring device (not a kitchen spoon). Never crush or break a tramadol pill to inhale the powder or mix it into a liquid to inject the drug into your vein. This practice has resulted in . You may have withdrawal symptoms if you stop using tramadol suddenly. Ask your doctor before stopping the medicine. Store at room temperature away from moisture and heat. Keep track of your medicine. You should be aware if anyone is using it improperly or without a prescription. Do not keep leftover tramadol. Just one dose can cause in someone using it accidentally or improperly. Ask your pharmacist where to locate a drug take- back disposal program. If there is no take-back program, mix the leftover medicine with cat litter or coffee grounds in a sealed plastic bag throw the bag in the trash. What happens if I miss a dose? Since tramadol is used for pain, you are not likely to miss a dose. Skip any missed dose if it is almost time for your next dose. Do not use two doses at one time. What happens if I overdose? Seek emergency medical attention or call the Poison Help line at . An overdose can befatal, especially in a child or other person using the medicine without a prescription. Overdose symptoms may include severe drowsiness, pinpoint pupils, slow breathing, or no breathing. Your doctor may recommend you get naloxone (a medicine to reverse an opioid overdose) and keep it with you at all times. A person caring for you can give the naloxone if you stop breathing or don't wake up. Your caregiver must still get emergency medical help and may need to perform CPR (cardiopulmonary resuscitation) on you while waiting for help to arrive. Anyone can buy naloxone from a pharmacy or local health department. Make sure any person caring foryou knows where you keep naloxone and how to use it. What should I avoid while taking tramadol? Do not drink alcohol. Dangerous side effects or could occur. Avoid driving or hazardous activity until you know how this medicine will affect you. Dizziness or drowsiness can cause falls, accidents, or severe injuries. What are the possible side effects of tramadol? Get emergency medical help if you have signs of an allergic reaction (hives, difficult breathing, swelling in your face or throat) or a severe skin reaction (fever, sore throat, burning in your eyes,skin pain, red or purple skin rash that spreads and causes blistering and peeling). Tramadol can slow or stop your breathing, and may occur. A person caring for you should give naloxone and/or seek emergency medical attention if you have slow breathing with long pauses, blue colored lips, or if you are hard to wake up. Call your doctor at once if you have: noisy breathing, sighing, shallow breathing, breathing that stops during sleep; a slow heart rate or weak pulse; a light-headed feeling, like you might pass out; seizure (convulsions); or low cortisol levels--nausea, vomiting, loss of appetite, dizziness, worsening tiredness or weakness. Seek medical attention right away if you have symptoms of serotonin syndrome, such as: agitation, hallucinations, fever, sweating, shivering, fast heart rate, muscle stiffness, twitching, loss of coordination, nausea, vomiting, or diarrhea. Serious breathing problems may be more likely in older adults and people who are debilitated or have wasting syndrome or chronic breathing disorders. Common side effects may include: constipation, nausea, vomiting, stomach pain; dizziness, drowsiness, tiredness; headache; or itching. This is not a complete list of side effects and others may occur. Call your doctor for medical advice about side effects. You may report side effects to FDA at 7-268-RAG-5051. What other drugs will affect tramadol? You may have breathing problems or withdrawal symptoms if you start or stop taking certain other medicines. Tell your doctor if you also use an antibiotic, antifungal medication, heart or blood pressure medication, seizure medication, or medicine to treat HIV or hepatitis C. Many other drugs can be dangerous when used with tramadol. Tell your doctor if you also use: medicine for allergies, asthma, blood pressure, motion sickness, irritable bowel, or overactive bladder; other opioid medicines; a benzodiazepine sedative like Valium, Klonopin, or Xanax; sleep medicine, muscle relaxers, or other drugs that make you drowsy; or drugs that affect serotonin, such as antidepressants, stimulants, or medicine for migraines or Parkinson's disease. This list is not complete. Other drugs may affect tramadol, including prescription and ggel-csf-tqrycam medicines, vitamins, and herbal products. Not all possible interactions are listed here. Many other drugs can be dangerous when used with tramadol. Tell your doctor if you also use: medicine for allergies, asthma, blood pressure, motion sickness, irritable bowel, or overactive bladder; other opioid medicines; a benzodiazepine sedative like Valium, Klonopin, or Xanax; sleep medicine, muscle relaxers, or other drugs that make you drowsy; drugs that affect serotonin, such as antidepressants, stimulants, or medicine for migraines or Parkinson's disease. drugs that affect serotonin levels in your body--a stimulant, or medicine for depression, Parkinson's disease, migraine headaches, serious infections, or nausea and vomiting. This list is not complete. Many other drugs may affect tramadol. This includes prescription and xwqd-kqw-epapygd medicines, vitamins, and herbal products. Not all possible drug interactions are listed here. Where can I get more information? Your doctor or pharmacist can provide more information about tramadol. Remember, keep this and all other medicines out of the reach of children, never share your medicines with others, and use this medication only for the indication prescribed. Every effort has been made to ensure that the information provided by [employer]. ('[employer]') is accurate, up-to-date, and complete, but no guarantee is made to that effect. Drug information contained herein may be time sensitive. [employer] information has been compiled for use by healthcare practitioners and consumers in the [place] and therefore [employer] does not warrant that uses outside of the [place] are appropriate, unless specifically indicated otherwise. [employer] drug information does not endorse drugs, diagnose patients or recommend therapy. [employer] drug information isan informational resource designed to assist licensed healthcare practitioners in caring for their p atients and/or to serve consumers viewing this service as a supplement to, and not a substitute for, the expertise, skill, knowledge and judgment of healthcare practitioners. The absence of a warningfor a given drug or drug combination in no way should be construed to indicate that the drug or drug combination is safe, effective or appropriate for any given patient. [employer] does not assume any responsibility for any aspect of healthcare administered with the aid of information [employer] provides. The information contained herein is not intended to cover all possible uses, directions, precautions, warnings, drug interactions, allergic reactions, or adverse effects. If you have questions about the drugs you are taking, check with your doctor, nurse or pharmacist. Copyright 3567-4552 [employer]. Version: 24.. Revision Date: 09/16/2022. Education Materials Knee Pain with Uncertain Cause There are several common causes for knee pain. These can include: A sprain of the ligaments that support the joint An injury to the cartilage lining of the joint Arthritis from zvdj-wgl-jqyv or inflammation There are other causes as well. There may also be swelling, reduced movement of the knee joint, andpain with walking. A definite diagnosis will still need to be made. If your symptoms don't improve,further follow-up and testing may be needed. Home care Stay off the injured leg as much as possible until pain improves. Apply an ice pack over the injured area for 15 to 20 minutes every 3 to 6 hours. You should do thisfor the first 24 to 48 hours. You can make an ice pack by filling a plastic bag that seals at the top with ice cubes and then wrapping it with a thin towel. Continue to use ice packs for relief of pain and swelling as needed. As the ice melts, be careful not to get your wrap, splint, or cast wet. After 48 hours, apply heat (warm shower or warm bath) for 15 to 20 minutes several times a day, or alternate ice and heat. If you have to wear a xjhy-eda-bzgs knee brace, you can open it to apply the ice pack, or heat, directly to the knee. Never put ice directly on the skin. Always wrap the ice in atowel or other type of cloth. You may use fyvv-hum-hpayndl pain medicine to control pain, unless another pain medicine was prescribed. If you have chronic liver or kidney disease or ever had a stomach ulcer or gastrointestinal bleeding, talk with your healthcare provider before using these medicines. If crutches or a walker have been recommended, don't put weight on the injured leg until you can doso without pain. Check with your healthcare provider before returning to sports or full work duties. If you have a hmrm-vfl-huax knee brace, you can remove it to bathe and sleep, unless told otherwise. Follow-up care Follow up with your healthcare provider as advised. This is usually within 1 to 2 weeks. If X-rays were taken, you will be told of any new findings that may affect your care Call 911 Call 911 if you have: Shortness of breath Chest pain When to seek medical advice Call your healthcare provider right away if any of these occur: Toes or foot becomes swollen, cold, blue, numb, or tingly Pain or swelling spreads over the knee or calf Warmth or redness appears over the knee or calf Other joints become painful Rash appears Fever of 100.4 F (38 C) or higher, or as directed by your healthcare provider Tara [phone] [employer]. [address] [place] [address]. All rights reserved. This information is not intended as a substitute for professional medical care. Always follow yourhealthcare professional's instructions. Additional Information VACCINATE! IT SAVES LIVES! Members of the community who have not yet received the COVID-19 vaccine and would like to receive it can visit one of [facility] vaccine clinics. There are many vaccine clinic locations within the [facility]. For locations and available times, please visit [email or web address] It is important to note that some COVID mobile vaccine clinics are held outdoors and may be canceled in rainy or stormy conditions. To learn more about pediatric vaccinations (ages 5-11), we invite you to visit the [facility] webpage. [email or web address]/[email or web address] [email or web address] learn more about the COVID-19 vaccine, we invite you to visit the CDC website for a list of frequently asked questions. https://www.cdc.gov/coronavirus/2019-ncov/vaccines/faq.html [facility] Patient Portal Access Instructions: Stay connected with your healthcare team and access your personal medical information anytime with the [facility] Patient Portal. If you would like a full copy of your medical records please contact the [facility] Medical Records Department Monday through Monday between 8a.m. and 4:30p.m. Please follow the directions below to access the portal: 1.Access the email account you provided upon registration to the [facility].2.Look for an invitation email from [facility].3.Open the email and access the invitation link: Accept Invitation to [facility]4.Fill in the required mckinley to create your account. Sign into www.[employer] with your username and password that you created in the above steps to stay up to date. You can then view a summary of results, a summary of your visits, and the ability to download your summaries to your computer or send the information securely to a physician. Remember that your healthcare information is confidential, so carefully consider who you will allow to register on the [facility] Patient Portal for access to your information. You can also access the [facility] Patient Portal on the [employer] tracey. Simply click on Health Records under [employer] and then click on the [employer] logo. HOW TO SAFELY DISPOSE OF PRESCRIPTION MEDICATIONS Please use one of the following methods to safely dispose of your unused medications. 1.Use a drug disposal kit: the drug disposal pouch allows you to safely discard your old and unuseddrugs. Ask your nurse to give you one when you are discharged.2.Visit a local take-back location: Many local pharmacies and police departments have programs that collect old and unwanted prescriptiondrugs. Call your local pharmacy or go to http://[employer].diaDexus/7N7Gh5d to find one close to you.3.Make use of household items: Use cat litter or old coffee grounds to dispose medications if other options arenot available. Mix your drugs with these household products, seal them in an airtight container andthrow it into the garbage. Call [facility]: [phone] to be sure your drugs can be disposed of in this way. Some medicines may require a different approach.4.Never flush your medications down the toilet. IF YOU HAVE BEEN PRESCRIBED AN OPIOIDS FOR PAIN If you have been prescribed an opioid (such as hydrocodone, oxycodone or morphine), it is critical to understand the possible side effects and risks of opioid pain medications. Even when taken as directed, opioids can have several side effects including: Tolerance, meaning you might need to take more of a medication for the same pain relief. Nausea, vomiting and/or constipation. Sleepiness, dizziness, dry mouth, confusion, depression or itching. Physical dependence, meaning you have withdrawal symptoms when a medication is stopped ? this can develop within a few days. KNOW YOUR RESPONSIBILITIES It is important to know exactly how much and how often to take the opioid pain medications you are prescribed. Never take opioids in higher amounts or more often than prescribed. Do not combine opioids with alcohol or other drugs that cause drowsiness, such as benzodiazepines, also known as benzos,including diazepam and alprazolam, muscle relaxants or sleep aids. Never sell or share prescriptionopioids. This is illegal. Store opioids in a secure place and out of reach of others (including children, family, friends and visitors). The last page(s) of this document has been signed and retained as a CHART COPY Signatures Patient Education Materials Knee Pain of Uncertain Cause Medication Leaflets tramadol My discharge plan and instructions have been reviewed and explained to me and I,AMBROCIO TORREZ understand my current condition and have read and understand these discharge instructions. I have received a written copy of the plan/instructions. If I have questions, I am aware that I should contact my doctor. Patient/Welder Apprentice Combination Signature: Date/Time: Relationship to Patient: Witness Name/Signature: Date/Time: [facility]12-22-2023 Note* Exam Date Time Procedure Performing Provider Status 02/03/23 8:39 AM VL Venous US/Doppler One Leg (DVT) AO Auth (Verified) [facility] 12-22-2023 Note ORIGINAL EXAMINATION: THREE XRAY VIEWS OF THE RIGHT KNEE02/03/2023 8:48 am COMPARISON: None available HISTORY: ORDERING SYSTEM PROVIDED HISTORY: Reason for Exam: Right knee pain and swelling for 10 days, no trauma FINDINGS: No acute fracture or dislocation is identified. Bony alignment is maintained. Small tricompartmental calcifications are visualized. Uihl-qe-mvqagaxq tricompartmental degenerative changes with joint space narrowing and osteophyte formation. There is a small suprapatellar joint effusion. Scattered vascular calcifications. The soft tissues are otherwise unremarkable. IMPRESSION: No acute fracture or dislocation. Small suprapatellar joint effusion. 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 I have personally reviewed the images of this examination and agree with the resident's findings and interpretation. Interpreted by: Elana Perez MD Preliminary Report By: Mary Ware Electronically signed By Elana Perez MD Dictated Date: 02/03/2023 8:49:56 AM Prelim Date: 02/03/2023 8:59:10 AM Sign Date: 02/03/2023 8:59:10 AM [facility] Discharge instructions Patient Education 10/25/2022 05:35:12 Understanding the Pain Response Understanding the Pain Response Your pain is important. It can slow healing and keep you from being active. You may have acute or chronic pain. Both types of pain respond to treatment. Work with your healthcare professional. Together you can find relief. Types of pain Acute pain is caused by a health problem or injury. The pain usually goes away when its cause is treated. You may have pain: From an illness or injury that needs emergency care After an operation, such as heart surgery During and after the of your baby Chronic pain lasts 3 to 6 months or more. It can be caused by a health problem or injury, like arthritis or a shoulder strain. Chronic pain can also exist without a clear cause. Your perception of pain Pain is a complex phenomenon that involves many of the chemicals found naturally in the spinal cordand brain. All pain signals travel to the brain. The brain sends back signals to protect the body. The brain also makes its own painkillers (endorphins). These can help reduce the pain. 1. Pain starts in 1 or more parts of the body. In some cases, the site of the pain is far from its source. 2. Pain signals move through nerves and up the spinal cord. 3. The brain reads the signals as pain. Natural painkillers are released. 4. The feeling of pain can be reduced in this way. [id number] [employer]. [address] [place] [address]. All rights reserved. This information is not intended as a substitute for professional medical care. Always follow yourhealthcare professional's instructions. Follow Up Care 10/25/2022 05:14:59 With:ELANA HICKMAN Address: [address] [place] [phone] Business (1) When:2-4 days [facility] 09-12-2023 Note Discharge Instructions Thank you for allowing [facility] to assist you with your healthcare needs. The following is importantdischarge information regarding your hospital visit. Diagnosis from Today's Visit Arm pain Difficulty swallowing Difficulty swallowing What to Do Next Instructions from Your Care Team No qualifying data available. Post Acute Orders No qualifying data available. You Need to Schedule the Following Appointments Follow Up with ELANA HICKMAN When Within 2-4 days Where: [address] [place] [phone] Business (1) Allergies Statins (Myalgia) Medications Please ask your primary doctor or pharmacist before taking any other medication not listed, including over the counter drugs, herbal medications, vitamins and or supplements as they may interact withyour home medications. What How Much When Why Instructions Last Dose Unchanged amitriptyline (amitriptyline 25 mg oral tablet) 2 tab(s) by mouth Daily at bedtime start 1 tab at night x 3 nights, then increase to 2 tabs at night Unchanged carbidopa-levodopa (carbidopa-levodopa 25 mg-250 mg oral tablet) 2 tab(s) by mouth Two (2) times a day Duration: 90 Days TAKE 2 TABLETS BY MOUTH TWICE A DAY Unchanged cholecalciferol (cholecalciferol 50 mcg (2000 intl units) oral tablet) 1 tab(s) by mouth Every day Duration: 90 Days Unchanged cyclobenzaprine (cyclobenzaprine 10 mg oral tablet) 1 tab(s) by mouth Three (3) times a day Duration: 30 Days Unchanged DME (Blood Glucose Test Strips) See instructions 1 bottle of 100. Freestyle Lite. Testing BID. dx: e11.65 Unchanged DME (DME MISCellaneous) See instructions 1 EA = DEXCOM continuous glucose transmitor; Dx E11.65, Z79.4, G20 Unchanged DME (DME MISCellaneous) See instructions 7 EA = 7 DEXCOM continuous glucose senosrs, to replace every 2 weeks, for 90 day supply; Dx E11.65,Z79.4, G20 Unchanged DME (DME MISCellaneous) See instructions Type 2 diabetes mellitus with hyperglycemia Parkinsons disease 1 EA = DEXCOM continuous glucose methods analyst data processing; Dx E11.65, Z79.4, G20 Unchanged empagliflozin (empagliflozin 25 mg oral tablet) 1 tab(s) by mouth Once a day (in the morning) Duration: 90 Days Unchanged glimepiride (glimepiride 4 mg oral tablet) 1 tab(s) by mouth Once a day Uncontrolled type 2 diabetes mellitus with peripheral neuropathy Duration: 90 Days Unchanged hydrochlorothiazide-lisinopril (hydrochlorothiazide-lisinopril 25 mg- 20 mg oral tablet) 1 tab(s) by mouth Every day Duration: 90 Days Unchanged insulin isophane (NPH) - insulin regular (HumuLIN 70/ 30 10 mL vial) 32 unit(s) Subcutaneous Two (2) times a day Duration: 90 Days Unchanged omeprazole (omeprazole 20 mg oral delayed release capsule) 1 cap by mouth Once a day Duration: 90 Days Unchanged pravastatin (pravastatin 20 mg oral tablet) 1 tab(s) by mouth Every other day Unchanged propranolol (propranolol 20 mg oral tablet) 1 tab(s) by mouth Two (2) times a day Duration: 90 Days Unchanged tamsulosin (tamsulosin 0.4 mg oral capsule) 1 cap by mouth Once a day Duration: 90 Days Please take this list to your next doctor s visit. Bring all medications you take, including over the counter medications, herbals and other supplements with you to your doctor s visit. Patients and families are reminded to discard old lists and to update any records with all medication providers or retail pharmacies. Education Materials Understanding the Pain Response Your pain is important. It can slow healing and keep you from being active. You may have acute or chronic pain. Both types of pain respond to treatment. Work with your healthcare professional. Together you can find relief. Types of pain Acute pain is caused by a health problem or injury. The pain usually goes away when its cause is treated. You may have pain: From an illness or injury that needs emergency care After an operation, such as heart surgery During and after the of your baby Chronic pain lasts 3 to 6 months or more. It can be caused by a health problem or injury, like arthritis or a shoulder strain. Chronic pain can also exist without a clear cause. Your perception of pain Pain is a complex phenomenon that involves many of the chemicals found naturally in the spinal cordand brain. All pain signals travel to the brain. The brain sends back signals to protect the body. The brain also makes its own painkillers (endorphins). These can help reduce the pain. 1. Pain starts in 1 or more parts of the body. In some cases, the site of the pain is far from its source. 2. Pain signals move through nerves and up the spinal cord. 3. The brain reads the signals as pain. Natural painkillers are released. 4. The feeling of pain can be reduced in this way. 2701-1021 [employer]. [address] [place] [address], [place] [address]. All rights reserved. This information is not intended as a substitute for professional medical care. Always follow yourhealthcare professional's instructions. Additional Information VACCINATE! IT SAVES LIVES! Members of the community who have not yet received the COVID-19 vaccine and would like to receive it can visit one of [facility] vaccine clinics. There are many vaccine clinic locations within the [facility]. For locations and available times, please visit [email or web address]/. It is important to note that some COVID mobile vaccine clinics are held outdoors and may be canceled in rainy or stormy conditions. To learn more about pediatric vaccinations (ages 5-11), we invite you to visit the [facility] webpage. [email or web address] [email or web address] learn more about the COVID-19 vaccine, we invite you to visit the CDC website for a list of frequently asked questions. https://www.cdc.gov/coronavirus/2019-ncov/vaccines/faq.html [facility] Patient Portal Access Instructions: Stay connected with your healthcare team and access your personal medical information anytime with the [facility] Patient Portal. If you would like a full copy of your medical records please contact the [facility] Medical Records Department Monday through Monday between 8a.m. and 4:30p.m. Please follow the directions below to access the portal: 1.Access the email account you provided upon registration to the [facility].2.Look for an invitation email from [facility].3.Open the email and access the invitation link: Accept Invitation to [facility]4.Fill in the required mckinley to create your account. Sign into [email or web address] with your username and password that you created in the above steps to stay up to date. You can then view a summary of results, a summary of your visits, and the ability to download your summaries to your computer or send the information securely to a physician. Remember that your healthcare information is confidential, so carefully consider who you will allow to register on the [facility] Patient Portal for access to your information. You can also access the [facility] Patient Portal on the [employer]. Simply click on Health Records under [employer] and then click on the [employer] logo. HOW TO SAFELY DISPOSE OF PRESCRIPTION MEDICATIONS Please use one of the following methods to safely dispose of your unused medications. 1.Use a drug disposal kit: the drug disposal pouch allows you to safely discard your old and unuseddrugs. Ask your nurse to give you one when you are discharged.2.Visit a local take-back location: Many local pharmacies and police departments have programs that collect old and unwanted prescriptiondrugs. Call your local pharmacy or go to http://[employer].diaDexus/5M3Ne9j to find one close to you.3.Make use of household items: Use cat litter or old coffee grounds to dispose medications if other options arenot available. Mix your drugs with these household products, seal them in an airtight container andthrow it into the garbage. Call [facility]: [phone] to be sure your drugs can be disposed of in this way. Some medicines may require a different approach.4.Never flush your medications down the toilet. IF YOU HAVE BEEN PRESCRIBED AN OPIOIDS FOR PAIN If you have been prescribed an opioid (such as hydrocodone, oxycodone or morphine), it is critical to understand the possible side effects and risks of opioid pain medications. Even when taken as directed, opioids can have several side effects including: Tolerance, meaning you might need to take more of a medication for the same pain relief. Nausea, vomiting and/or constipation. Sleepiness, dizziness, dry mouth, confusion, depression or itching. Physical dependence, meaning you have withdrawal symptoms when a medication is stopped ? this can develop within a few days. KNOW YOUR RESPONSIBILITIES It is important to know exactly how much and how often to take the opioid pain medications you are prescribed. Never take opioids in higher amounts or more often than prescribed. Do not combine opioids with alcohol or other drugs that cause drowsiness, such as benzodiazepines, also known as benzos,including diazepam and alprazolam, muscle relaxants or sleep aids. Never sell or share prescriptionopioids. This is illegal. Store opioids in a secure place and out of reach of others (including children, family, friends and visitors). The last page(s) of this document has been signed and retained as a CHART COPY Signatures Patient Education Materials Understanding the Pain Response Medication Leaflets My discharge plan and instructions have been reviewed and explained to me and I,AMBROCIO TORREZ understand my current condition and have read and understand these discharge instructions. I have received a written copy of the plan/instructions. If I have questions, I am aware that I should contact my doctor. Patient/Welder Apprentice Combination Signature: Date/Time: Relationship to Patient: Witness Name/Signature: [facility] Appointment Date:07/20/2021 09:00:00 AM Scheduled Provider:ELANA HICKMAN DO Location:[facility] Appointment Type:PC OV Future Scheduled Tests Laboratory* Thyroid Stimulating Hormone 09/14/20 * Complete Blood Count 09/14/20 * Lipid Profile 09/14/20 Radiology* XR Spine Lumbar W/Obliques 4 Views 12/15/20 [facility] + Plan note Future Appointments Appointment Date:08/03/2021 11:30:00 AM Scheduled Provider:ELANA HICKMAN DO Location:[facility] Appointment Type:PC OV Future Scheduled Tests Laboratory* Thyroid Stimulating Hormone 09/14/20 * Complete Blood Count 09/14/20 * Lipid Profile 09/14/20 Radiology* BD Bone Density DEXA Axial Skeleton 07/20/21 * XR Spine Lumbar W/Obliques 4 Views 12/15/20 [facility] Evaluation + Plan note Future Appointments Appointment Date:06/14/2022 11:30:00 AM Scheduled Provider:ELANA HICKMAN DO Location:[facility] Appointment Type:PC OV Future Scheduled Tests Radiology* BD Bone Density DEXA Axial Skeleton 07/20/21 [facility] Evaluation + Plan note Future Appointments Appointment Date:11/22/2022 11:30:00 AM Scheduled Provider:ELANA HICKMAN DO Location:[facility] Appointment Type: Wellness Annual Future Scheduled Tests Laboratory* Thyroid Stimulating Hormone 06/14/22 * A1C Hemoglobin 06/14/22 * Complete Blood Count 06/14/22 * Lipid Profile 06/14/22 * Albumin/Creatinine Ratio, Random Urine 06/14/22 * Vitamin D Level 06/14/22 * Complete Metabolic Panel 06/14/22 [facility] Evaluation + Plan note Future Appointments Appointment Date:05/23/2023 11:30:00 AM Scheduled Provider:ELANA HICKMAN DO Location:[facility] Appointment Type:PC OV Future Scheduled Tests Laboratory* Thyroid Stimulating Hormone 06/14/22 * A1C Hemoglobin 06/14/22 * Complete Blood Count 06/14/22 * Lipid Profile 06/14/22 * Albumin/Creatinine Ratio, Random Urine 06/14/22 * Albumin/Creatinine Ratio, Random Urine 11/22/22 * Vitamin D Level 06/14/22 * Complete Metabolic Panel 06/14/22 Radiology* BD Bone Density DEXA Axial Skeleton 11/22/22 [facility] evaluation + Plan note Future Appointments Appointment Date:11/21/2023 09:30:00 AM Scheduled Provider:ELANA HICKMAN DO Location:[facility] Appointment Type:PC OV Future Scheduled Tests Laboratory* Albumin/Creatinine Ratio, Random Urine 05/23/23 Radiology* BD Bone Density DEXA Axial Skeleton 11/22/22 [facility] Evaluation + Plan note Future Appointments Appointment Date:05/21/2024 09:30:00 AM Scheduled Provider:ELANA HICKMAN DO Location:[facility] Appointment Type:PC OV Future Scheduled Tests Laboratory* Vitamin B1 (Thiamine), Blood 11/21/23 * Folate Level 11/21/23 * Prostate Specific Antigen 11/21/23 * Thyroid Stimulating Hormone 11/21/23 * Free T4 11/21/23 * Vitamin B12 Level 11/21/23 * Albumin/Creatinine Ratio, Random Urine 05/23/23 [facility] Evaluation noteNo assessment information available [facility] Work Phone: Hospital course Narrative No data available for this section [facility] Hospital Discharge instructions No data available for this section [facility] Progress note No data available for this section [facility] Reason for referral (narrative)No reason for referral information [facility]: Chief Complaint and Reason for Visit Chief Complaint R Shoulder Pain Chief Complaint Admit Date FALL June 17, 2024 8:44pm Advance Directives Advance Directive Response Recorded Date/ Time Living Will No October 28, 2022 2:33am Power of Notereader No October 2:33am Advance Directive Response Recorded Date/ Time Do you have a Healthcare Power of Notereader? Yes June 17, 2024 9:54pm Summary Purpose Family History No Family History Records Found Additional Source Comments Care Team (unrecognized sect ion and content) Team Status: Active Member Role Status Dates Dr. Isaac Hodge DO Family Provider Active Dr. Elana Hickman DO Primary Care Provider Active Team Status: Inactive Member Role Status Dates Dr. Elana Hickman DO Primary Care Provider Active Dr. Wang Nuñez MD Emergency Provider Active Team Status: Active Member Role/Relationship Status Dates Dr. Elana Hickman DO Primary Care Provider Active Team Status: Inactive Member Role/Relationship Status Dates Dr. Elana Hickman DO Primary Care Provider Active Start: June 11, 2024 End: June 11, 2024 Dr. Jeffy Morgan DPM Attending Provider Active Start: June 11, 2024 End: June 11, 2024 Dr. Jeffy Morgan DPM Referring Provider Active Start: June 11, 2024 End: June 11, 2024 Team Status: Inactive Member Role/Relationship Status Dates Dr. Elana Hickman DO Primary Care Provider Active Start: June 17, 2024 End: June 18, 2024 Dr. Neville Swan DO Attending Provider Active Start: June 17, 2024 End: June 18, 2024 Dr. Neville Swan DO Emergency Provider Active Start: June 17, 2024 End: June 18, 2024 Team Status: Inactive Member Role/Relationship Status Dates Dr. Elana Hickman DO Primary Care Provider Active Start: September 10, 2024 End: September 10, 2024 Dr. Jeffy Morgan DPM Attending Provider Active Start: September 10, 2024 End: September 10, 2024 Care Team (unrecognized sect ion and content) Care Team Personnel Name: Timmy Scientific Director Lisa PT Position: P3 Scheduling - [employer] E[employer] Consultant Advanced Member Role: Other Name: ELANA HICKMAN DO Position: P4 Physician - Primary Care Member Role: Primary Care Physician Address: Address: [address] [place] [address] Care Team Related Persons Name: TAMMI TORREZ Address: Home [address] [place], [place] [id number] [place] Address: [facility] [address] [place], [place] [id number] Goals (unrecognized section and content) Goals may be documented in a n alternate section (unrecognized sect ion and content) No Status Records FoundNo Status Records FoundNo Status Records Found INFORMATION SOURCE (unrecogn ized section and content) DATE CREATED AUTHOR 02/11/2023 [facility] ([place]) DATE CREATED AUTHOR AUTHOR'S ORGANIZ ATION 05/26/2024 [facility] DATE CREATED AUTHOR AUTHOR'S ORGANIZ ATION 09/12/2024 [facility] FOR RECORDS PERTAINING TO PATIENTS WHO ARE OR HAVE BEEN ENROLLED IN A CHEMICAL DEPENDENCY/SUBSTANCEABUSE PROGRAM, SOME INFORMATION MAY BE OMITTED. This clinical summary was aggregated from multiple sources. Caution should be exercised in using it in the provision of clinical care. This summary normalizes information from multiple sources, and as a consequence, information in this document may materially change the coding, format and clinical context of patient data. In addition, data may be omitted in some cases. CLINICAL DECISIONS SHOULD BE BASED ON THE PRIMARY CLINICAL RECORDS. [facility] [employer] [facility]. provides no warranty or guarantee of the accuracy or completeness of information in this document.
[2024-10-05] MEDS: Vancomycin HCl 1,750 MG in 0.9% Normal Saline (500mL Bag) 500 ML 250 MG IV (12:28)
[2024-10-05 12:43] LABS: Hematocrit 45.3 % (40-54); Hemoglobin 15.5 g/dL (13.0-16.5); Immature Granulocytes Count 0.060 X10^3/uL (0.0-0.0); Mean Corp Hgb Conc 34.2 g/dL (32-36); Mean Corpuscular Volume 91.1 fL (80-94); Mean Platelet Vol. 11.2 fl (6.2-12.0); NRBC Flagged by Analyzer 0 % (0-5); Platelet Count 170 K/mm3 (150-450); RBC Distribution Width CV 12.7 % (11.6-14.6); RBC Distribution Width SD 42.4 fl (35.1-43.9); Red Blood Count 4.97 M/mm3 (4.6-6.2); White Blood Count 10.0 K/mm3 (4.4-11.0)
[2024-10-05 13:20] LABS: Anion Gap 16 (5-15); BUN 36 mg/dL (4-19); BUN/Creat Ratio 22.8 RATIO (10-20); CRP 251.00 mg/L (0.0-3.0); Calcium,Total 9.4 mg/dL (7.6-11.0); Carbon Dioxide 25.8 mmol/L (21.0-32.0); Chloride 96 mmol/L (98-108); Estimated Creatinine Clearance 53.99 ml/min (50-250); Glucose 235 mg/dL (70-99); Potassium 3.7 mmol/L (3.3-5.1)
--- NOTE | 2024-10-05 14:28 | PCM.HP.STD ---
HPI - General General Date of Admission: 10/05/24 Date of Service: 10/05/24 Chief Complaint: Right foot/ankle pain and swelling and generalized weakness HPI Narrative AMBROCIO JEFFERS, is a 74 M who presented to [facility] ED on 10/05/2024 with worsening right foot/ankle pain and swelling as well as generalized weakness. Medical history is significant for Parkinson's disease, type 2 diabetes with neuropathy and hypertension. Patient has a chronic right third toe wound and follows with Dr. Morgan with podiatry for this. He had that toe debrided in the office on Sunday 10/01. A few days ago he noticed redness in the foot and extending up into the ankle. Called the podiatry office who started him on p.o. doxycycline. However, he has had worsening weakness since then and had a small fall at home, so he came to the ED today for further evaluation. In the ED he was normotensive, afebrile and stable on room air at rest. No leukocytosis noted. However, inflammatory markers were significantly elevated with CRP 251, ESR 37. Foot and ankle x-ray both showed no concerning findings, and per ED physician on exam there was no concern for subcutaneous emphysema or necrotizing fasciitis. Given his worsening infection and weakness, hospitalist was contacted for admission. I saw the patient at bedside in the ED, was present. Patient was fatigued appearing but otherwise sitting back comfortably in bed and in no acute distress. He was answering questions with short appropriate responses. Reported only mild right foot and ankle discomfort currently. Denied any fevers or chills. Does note that he feels weaker than his normal. No other acute concerns at this time. Will be admitted for further management. [facility] Medical History Parkinson disease Hypertension Diabetes Home Medications ?Medication ?Instructions ?Recorded ?Last Taken ?Type carbidopa 25 mg-levodopa 250 mg 2 tab PO BID 03/10/20 Unknown History tablet glimepiride 4 mg tablet 4 mg PO DAILY 03/10/20 Unknown History lisinopril 20 1 tab PO DAILY 03/10/20 Unknown History mg-hydrochlorothiazide 25 mg tablet tamsulosin 0.4 mg capsule 0.4 mg PO Q24H 03/10/20 Unknown History cholecalciferol (vitamin D3) 50 50 mcg PO DAILY 11/09/22 Unknown History mcg (2,000 unit) tablet empagliflozin 25 mg tablet 25 mg PO DAILY 11/09/22 Unknown History (Jardiance) gabapentin 100 mg capsule 100 mg PO Q8H 11/09/22 Unknown History pravastatin 20 mg tablet 20 mg PO DAILY 11/09/22 Unknown History cyclobenzaprine 10 mg tablet 10 mg PO TID 10/05/24 Unknown History doxycycline monohydrate 100 mg 100 mg PO BID 10/05/24 Unknown History capsule insulin human U-100 NPH-regulr subcut 10/05/24 Unknown History 70-30 mix 100 unit/mL subcutaneous susp (Humulin 70/30 U-100 Insulin) omeprazole 20 mg capsule,delayed 20 mg PO DAILY 10/05/24 Unknown History release propranolol 20 mg tablet 20 mg PO BID 10/05/24 Unknown History Allergy/AdvReac Type Severity Reaction Status Date / Time No Known Allergies Allergy Verified 10/05/24 11:37 Surgical History History of partial amputation of toe of right foot h/o appendectomy Social History Smoking Status: Never smoker ROS Constitutional Constitutional: Reports fatigue and weakness; Denies chills or fever(s) Cardiovascular Cardiovascular: Denies chest pain Respiratory/Chest Respiratory/Chest: Denies shortness of breath at rest Gastrointestinal Gastrointestinal: Denies abdominal pain Musculoskeletal Musculoskeletal: Reports other Details: Right foot and ankle pain/erythema ; Denies arthralgias or myalgias Neurologic Neurologic: Denies dizziness, focal weakness, headache(s), numbness or tingling Vital Signs Vital Signs Vital Signs: 10/05/24 11:35 Temperature 98.9 F Temperature Source Oral Pulse Rate 85 Respiratory Rate 18 Blood Pressure 124/85 H Blood Pressure Mean 98 Pulse Ox 94 Oxygen Delivery Method Room Air Weight Weight: 114.759 kg Body Mass Index (BMI) 35.2 Physical Exam Const alert, oriented x3 and no apparent distress Constitutional Narrative: Elderly male, class II obesity, fatigued appearing but otherwise laying back comfortably in bed, answering questions with short appropriate responses, in no acute distress. General Appearance: cooperative and comfortable HEENT normocephalic, head/scalp atraumatic, hearing grossly normal bilaterally, nasal mucous membranes and turbinates normal and moist oral mucous membranes Eyes PERRL, EOMs intact bilaterally and conjunctivae normal Neck full ROM Chest inspection of chest normal Resp normal respiratory effort, normal air movement, no use of accessory muscles and clear to auscultation bilaterally Cardio regular rate, regular rhythm, no murmurs and peripheral pulses 2+ throughout GI normal to inspection, nondistended, normoactive bowel sounds, soft to palpation, non-tender and non-distended Back/Spine normal ROM Extremity Extremity Narrative: Right third toe wound noted with bandage in place. Erythema and tenderness to palpation extending from toes up to the mid calf noted. Neuro moves all extremities and no focal motor deficits Speech: speech normal Psych mental status grossly normal Results Lab / Micro Data 10/05/24 12:30 10/05/24 12:30 Labs: Laboratory Results - last 24 hr 10/05/24 12:30: WBC 10.0, RBC 4.97, Hgb 15.5, Hct 45.3, MCV 91.1, MCH 31.2, MCHC 34.2, RDW Std Deviation 42.4, RDW Coeff of Brant 12.7, Plt Count 170, MPV 11.2, Immature Gran % (Auto) 0.600, Neut % (Auto) 81.8 H, Lymph % (Auto) 7.1 L, [place] % (Auto) 9.6, Eos % (Auto) 0.7, Baso % (Auto) 0.2, Absolute Neuts (auto) 8.1 H, Absolute Lymphs (auto) 0.71 L, Nucleated RBC % 0, ESR 37 H, Sodium 137, Potassium 3.7, Chloride 96 L, Carbon Dioxide 25.8, Anion Gap 16 H, BUN 36 H, Creatinine 1.57 H, Estim Creat Clear Calc 53.99, Est GFR (MDRD) Non-Af 46 L, BUN/Creatinine Ratio 22.8 H, Glucose 235 H, Calcium 9.4, C-React Prot Ext Range 251.00 H Imaging Radiology Impression Ankle X-Ray 10/05/24 12:01 IMPRESSION: No acute osseous abnormalities. Reading Location: [facility] Foot X-Ray 10/05/24 12:01 IMPRESSION: No acute osseous abnormalities. Reading Location: [facility] Assessment & Plan Assessment/Plan (1) Cellulitis of leg, right: (2) Debility: PLAN: Plan Patient is a 74-year-old male who presented [facility] ED on 10/05/2024 with worsening right foot and ankle pain/erythema and worsening generalized weakness. 1. Right lower extremity cellulitis with chronic right third toe wound and recent debridement ? Admit under inpatient status to [facility]. Wound care consulted. Follows with Dr. Morgan with podiatry for chronic right third toe wound. Had toe debrided in the office on 10/01. Developed right foot erythema extending up to the lower calf with swelling and tenderness to palpation. Hemodynamically stable, afebrile and no leukocytosis on admit. However, CRP 251 and ESR 37. Right foot and ankle x-rays were unremarkable, minimal concern for osteomyelitis. Notably wound cultures from the right third toe from prior debridement on 09/10 grew 3+ MRSA. Will treat with IV vancomycin for now. Monitor clinically. Will hold on podiatry consult for now but can consider as needed. 2. Acute on chronic debility in setting of Parkinson's disease ? PT/OT/case management consulted. Patient lives at home with his . He has decent functional status at baseline but has been weaker than his normal over the past several days. Appreciate therapy recommendations. Continue home Sinemet and propranolol. 3. CKD stage IIIa ? Creatinine 1.57 on admit, baseline 1.3-1.5. Given 1 L of fluids on admit. Follow-up a.m. BMP and monitor urine output. Chronic medical conditions: ? Class II obesity: BMI 35.3 on admit. Complicates hospital course and care. ? Type 2 diabetes mellitus with diabetic neuropathy: Blood glucose 235 on admit. A1c ordered. Will treat with sliding scale insulin with meals while inpatient, adjust as needed. Hold home empagliflozin and glimepiride. Continue home gabapentin. ? Hypertension/hyperlipidemia: BP low normal in the ED. Will hold home lisinopril?hydrochlorothiazide for now. Continue home statin. ? GERD: Continue home PPI. ? BPH with obstructive symptoms: Continue home Flomax. DVT prophylaxis: Lovenox CODE STATUS: DNR-CCA, DNI Expected disposition: TBD Total clinical time spent by myself addressing the patient's medical issues, reviewing all the data, and collaborating with patient's care team: 75 minutes. Charges/Coding Visit Charges Inpatient E&M: 91805 Init Hosp L3
[2024-10-05 14:57] VITALS: BP 117/72; PULSE 65; RESP 14; TEMP 36.9; O2SAT 94
[2024-10-05 14:59] VITALS: BP 117/62; PULSE 65; RESP 14; TEMP 36.9; O2SAT 100
--- OUTSIDE RECORDS SUMMARY | 2024-10-05 15:03 | XMS RPT_ITS | CCD ---
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 Villanueva Primary Care Provider [phone] Eddie DPMauro, Dr. Bardales Attending Provider Eddie DPM, Dr. Bardales Referring Provider Dr. Neville Swan DO Attending Provider Dr. Neville Swan DO Emergency Provider [phone] Allergies Allergy Classification Reported Allergen(s) Allergy Type Date of Onset Reaction(s) Facility (7 sources) HMG-CoA reductase inhibitor; Translations: [statins] Propensity to adverse reactions to drug Muscle pain (finding) [facility] [place] Work Phone: Medications Current Medications Medication Drug [...] night, # 60 tab(s), 0 Refill(s), Pharmacy: [facility], 180.3, cm, 06/14/22 11:34:00 EDT, Height [...] DAY, # 360 tab(s), 1 Refill(s), Pharmacy: [facility], 177.5, cm, 05/23/23 11:39:00 EDT, [...] DAY, # 360 tab(s), 1 Refill(s), Pharmacy: [facility]pharmacy #4605, 180.3, cm, 11/22/22 11:34:00 EDT, Height, [...] DAY, # 360 tab(s), 1 Refill(s), Pharmacy: [facility]pharmacy #4605, 180, cm, 07/20/21 8:58:00 EDT, Height, [...] Daily, # 90 tab(s), 1 Refill(s), Pharmacy: [facility], 177.5, cm, 05/23/23 11:39:00 EDT, [...] Daily, # 90 tab(s), 1 Refill(s), Pharmacy: [facility]/pharmacy #4605, 180.3, cm, 11/22/22 11:34:00 EDT, Height, kg, 11/22/22 11:34:00 EDT, Dosing Weight Start Date: 11/22/22 Stop Date: 05/21/23 Status: Ordered cyclobenzaprine hydrochloride 10 mg oral tablet (9 sources) Muscle Relaxant Start: 05-23-2023 End: 11-19-2023 cyclobenzaprine 10 mg oral tablet Dose : 10 mg = 1 tab(s), Oral, TID, # 90 tab(s), 5 Refill(s), Pharmacy: [facility], 177.5, cm, 05/23/23 11:39:00 EDT, Height, kg, 05/23/23 11:39:00 EDT, Dosing Weight Start Date: 05/23/23 Stop Date: 11/19/23 Status: Ordered Start: 01-26-2022 End: 05-21-2023 cyclobenzaprine 10 mg oral t ablet Dose : 10 mg = 1 tab(s), Oral, TID, # 90 tab(s), 5 Refill(s), Pharmacy: [facility]pharm[facility] #4605, 180.3, cm, 11/22/22 11:34:00 EDT, Height, kg, 11/22/22 11:34:00 EDT, Dosing Weight Start Date: 11/22/22 Stop Date: 05/21/23 Status: Ordered Start: 04-23-2021 End: 01-16-2022 cyclobenzaprine 10 mg oral t ablet Dose : 10 mg = 1 tab(s), Oral, TID, # 90 tab(s), 5 Refill(s), Pharmacy: [facility]/pharmacy #4605, 180, cm, 07/20/21 8:58:00 EDT, Height, [...] G20, # 7 EA, 3 Refill(s), [facility], 181, cm, 12/15/20 15:23:00 EDT, Height, 106.3, kg, 12/15/20 15:23:00 EDT, Dosing Weight Start Date: 12/18/20 Status: Ordered Start: 12-18-2020 DME MISCellane ous See Instructions, 7 EA = 7 DEXCOM continuous glucose senosrs, to replace every 2 weeks, for 90 day supply; Dx E11.65, Z79.4, G20, # 7 EA, 3 Refill(s), [facility], 181, cm, 12/15/20 15:23:00 EDT, Height, 106.3, kg, 12/15/20 15:23:00 E... Start Date: 12/18/20 Status: Ordered Start: 12-18-2020 DME MISCellane ous See Instructions, 1 EA = DEXCOM continuous glucose parking control officer; Dx E11.65, Z79.4, G20, # 1 EA, 0 Refill(s), Pharmacy: [facility] #4605, Type 2 diabetes mellitus with hyperglycemia Parkinsons disease, 181, cm, 12/15/20 15:23:00 EDT, Height, 106.3, kg, 12/15/20 15:23:00 EDT, Dosing Weight Start Date: 12/18/20 Status: Ordered Start: 12-18-2020 DME MISCellane ous See Instructions, 1 EA = DEXCOM continuous glucose parking control officer; Dx E11.65, Z79.4, G20, # 1 EA, 0 Refill(s), Pharmacy: [facility]pharmacy #4605, Type 2 diabetes mellitus with hyperglycemia Parkinsons disease, 181, cm, 12/15/20 15:23:00 EDT, Height, 106.3, kg,... Start Date: 12/18/20 Status: Ordered Start: 12-18-2020 DME MISCellane ous See Instructions, 1 EA = DEXCOM continuous glucose transmitor; Dx E11.65, Z79.4, G20, # 1 EA, 0 Refill(s), Pharmacy: [facility]/pharmacy #4605, 181, cm, 12/15/20 15:23:00 EDT, Height, [...] qAM, # 90 tab(s), 1 Refill(s), Pharmacy: [facility], 177.5, cm, 05/23/23 11:39:00 EDT, Height, kg, 05/23/23 11:39:00 EDT, Dosing Weight Start Date: 05/23/23 Stop Date: 11/19/23 Status: Ordered Start: 02-18-2021 End: 01-16-2022 empagliflozin 25 mg oral tab let Dose : 25 mg = 1 tab(s), Oral, qAM, # 90 tab(s), 1 Refill(s), Pharmacy: [facility]/pharm[facility] #4605, 180, cm, 07/20/21 8:58:00 EDT, Height, [...] qDay, # 90 tab(s), 1 Refill(s), Pharmacy: [facility], Uncontrolled type 2 diabetes mellitus with peripheral neuropathy, 177.5, cm, 05/23/23 11:39:00 EDT, Height, kg, 05/23/23 11:39:00 EDT, Dosing Weight Start Date: 05/23/23 Stop Date: 11/19/23 Status: Ordered Start: 03-10-2020 End: 05-21-2023 glimepiride 4 mg oral tablet Dose : 4 mg = 1 tab(s), Oral, qDay, # 90 tab(s), 1 Refill(s), Pharmacy: [facility] #4605, Uncontrolled type 2 diabetes mellitus with [...] Daily, # 90 tab(s), 1 Refill(s), Pharmacy: [facility], 177.5, cm, 05/23/23 11:39:00 EDT, Height, kg, 05/23/23 11:39:00 EDT, Dosing Weight Start Date: 05/23/23 Stop Date: 11/19/23 Status: Ordered Start: 01-26-2022 End: 05-21-2023 take 1 tablet by mouth once daily hydrochlorothiazide-lisinopril 25 mg-20 mg oral tablet Dose = 1 tab(s), Oral, Daily, # 90 tab(s), 1 Refill(s), [facility], 180.3, cm, 11/22/22 11:34:00 EDT, Height, kg, 11/22/22 11:34:00 EDT, Dosing Weight Start Date: 11/22/22 Stop Date: 05/21/23 Status: Ordered Start: 03-10-2020 End: 01-16-2022 take 1 tablet by mouth once daily hydrochlorothiazide-lisinopril 25 mg-20 mg oral tablet Dose = 1 tab(s), Oral, Daily, # 90 tab(s), 1 Refill(s), [facility], 180, cm, 07/20/21 8:58:00 EDT, Height, [...] pcp, # 30 mL, 0 Refill(s), Pharmacy: [facility], 177.5, cm, 05/23/23 11:39:00 EDT, Height, kg, 05/23/23 11:39:00 EDT, Dosing Weight Start Date: 09/22/23 Stop Date: 12/21/23 Status: Ordered Start: 02-01-2022 End: 12-11-2022 inject 32 [IU] by subcutaneous injection twice daily HumuLIN 70/30 10 mL vial 32 unit(s), Subcutaneous, BID, # 30 mL, 1 Refill(s), Pharmacy: [facility], 180.3, cm, 06/14/22 11:34:00 EDT, Height, kg, 06/14/22 11:34:00 EDT, Dosing Weight Start Date: 06/14/22 Stop Date: 12/11/22 Status: Ordered Start: 07-20-2021 End: 01-16-2022 inject 32 [IU] by subcutaneous injection twice daily HumuLIN 70/30 10 mL vial 32 unit(s), Subcutaneous, BID, # 30 mL, 1 Refill(s), Pharmacy: [id number], 180, cm, 07/20/21 8:58:00 EDT, Height, kg, 07/20/21 8:58:00 EDT, Dosing Weight Start Date: 07/20/21 Stop Date: 01/16/22 Status: Ordered Start: 02-18-2021 End: 08-17-2021 inject 30 [IU] by subcutaneous injection twice daily HumuLIN 70/30 10 mL vial 30 unit(s), Subcutaneous, BID, # 30 mL, 1 Refill(s), Pharmacy: [facility] #4605, 180.8, cm, 02/18/21 8:30:00 EST, Height, kg, 02/18/21 8:30:00 EST, Dosing Weight Start Date: 02/18/21 Stop Date: 08/17/21 Status: Ordered omeprazole 20 mg delayed release oral capsule (7 sources) Proton Pump Inhibitor Start: 05-23-2023 End: 11-19-2023 omeprazole 20 mg oral delayed release capsule Dose : 20 mg = 1 cap(s), Oral, qDay, # 90 cap(s), 1 Refill(s), Pharmacy: [facility], 177.5, cm, 05/23/23 11:39:00 EDT, Height, kg, 05/23/23 11:39:00 EDT, Dosing Weight Start Date: 05/23/23 Stop Date: 11/19/23 Status: Ordered Start: 06-14-2022 End: 05-21-2023 omeprazole 20 mg oral delaye d release capsule Dose : 20 mg = 1 cap(s), Oral, qDay, # 90 cap(s), 1 Refill(s), Pharmacy: [facility] #4605, 180.3, cm, 11/22/22 11:34:00 EDT, Height, kg, 11/22/22 11:34:00 EDT, Dosing Weight Start Date: 11/22/22 Stop Date: 05/21/23 Status: Ordered Start: 02-01-2022 End: 07-31-2022 PriLOSEC OTC 20 mg oral thor yed release tablet Dose : 20 mg = 1 tab(s), Oral, qDayAC, # 90 tab(s), 1 Refill(s), [facility], 180.3, cm, 02/01/22 11:27:00 EST, Height, kg, 02/01/22 11:27:00 EST, Dosing Weight Start Date: 02/01/22 Stop Date: 07/31/22 Status: Ordered Start: 02-18-2021 End: 01-16-2022 PriLOSEC OTC 20 mg oral thor yed release tablet Dose : 20 mg = 1 tab(s), Oral, qDayAC, # 90 tab(s), 1 Refill(s), [facility], 180, cm, 07/20/21 8:58:00 EDT, Height, kg, 07/20/21 8:58:00 EDT, Dosing Weight Start Date: 07/20/21 Stop Date: 01/16/22 Status: Ordered pravastatin sodium 20 mg oral tablet (7 sources) HMG-CoA Reductase Inhibitor Start: 05-23-2023 pravastatin 20 mg or al tablet Dose : 20 mg = 1 tab(s), Oral, Every other day, # 90 tab(s), 1 Refill(s), Pharmacy: [facility], 177.5, cm, 05/23/23 11:39:00 EDT, Height, kg, 05/23/23 11:39:00 EDT, Dosing Weight Start Date: 05/23/23 Status: Ordered Start: 11-09-2022 pravastatin 20 mg oral tablet Dose : 20 mg = 1 tab(s), Oral, Every other day, # 90 tab(s), 1 Refill(s), Pharmacy: [facility], 180.3, cm, 11/22/22 11:34:00 EDT, Height, kg, 11/22/22 11:34:00 EDT, Dosing Weight Start Date: 11/22/22 Status: Ordered Start: 06-14-2022 pravastatin 20 mg oral tablet Dose : 20 mg = 1 tab(s), Oral, Every other day, # 90 tab(s), 0 Refill(s), [facility], 180.3, cm, 06/14/22 11:34:00 EDT, Height, kg, 06/14/22 11:34:00 EDT, Dosing Weight Start Date: 06/14/22 Status: Ordered Start: 02-01-2022 pravastatin 20 mg oral tablet Dose : 20 mg = 1 tab(s), Oral, Every other day, # 90 tab(s), 0 Refill(s), Pharmacy: [facility]4605, 180.3, cm, 02/01/22 11:27:00 EST, Height, kg, 02/01/22 11:27:00 EST, Dosing Weight Start Date: 02/01/22 Status: Ordered Start: 07-20-2021 pravastatin 20 mg oral tablet Dose : 20 mg = 1 tab(s), Oral, Every other day, # 90 tab(s), 0 Refill(s), [facility], 180, cm, 07/20/21 8:58:00 EDT, Height, kg, 07/20/21 8:58:00 EDT, Dosing Weight Start Date: 07/20/21 Status: Ordered propranolol hydrochloride 20 mg oral tablet (13 sources) beta-Adrenergic Terry Start: 05-23-2023 End: 11-19-2023 propranolol 20 mg oral tablet Dose : 20 mg = 1 tab(s), Oral, BID, # 180 tab(s), 1 Refill(s), Pharmacy: [facility], 177.5, cm, 05/23/23 11:39:00 EDT, Height, kg, 05/23/23 11:39:00 EDT, Dosing Weight Start Date: 05/23/23 Stop Date: 11/19/23 Status: Ordered Start: 02-01-2022 End: 05-21-2023 propranolol 20 mg oral table t Dose : 20 mg = 1 tab(s), Oral, BID, # 180 tab(s), 1 Refill(s), Pharmacy: [facility] #[facility]605, 180.3, cm, 11/22/22 11:34:00 EDT, Height, kg, 11/22/22 11:34:00 EDT, Dosing Weight Start Date: 11/22/22 Stop Date: 05/21/23 Status: Ordered Start: 02-18-2021 End: 01-16-2022 propranolol 20 mg oral table t Dose : 20 mg = 1 tab(s), Oral, BID, # 180 tab(s), 1 Refill(s), Pharmacy: [facility], 180, cm, 07/20/21 8:58:00 EDT, Height, [...] qDay, # 90 cap(s), 1 Refill(s), Pharmacy: [facility], 177.5, cm, 05/23/23 11:39:00 EDT, Height, kg, 05/23/23 11:39:00 EDT, Dosing Weight Start Date: 06/26/23 Stop Date: 12/23/23 Status: Ordered Start: 01-26-2022 End: 05-21-2023 tamsulosin 0.4 mg oral capsu le Dose : 0.4 mg = 1 cap(s), Oral, qDay, # 90 cap(s), 1 Refill(s), [facility], 180.3, cm, 11/22/22 11:34:00 EDT, Height, kg, 11/22/22 11:34:00 EDT, Dosing Weight Start Date: 11/22/22 Stop Date: 05/21/23 Status: Ordered Start: 03-10-2020 End: 01-16-2022 tamsulosin 0.4 mg oral capsu le Dose : 0.4 mg = 1 cap(s), Oral, qDay, # 90 cap(s), 1 Refill(s), [facility], 180, cm, 07/20/21 8:58:00 EDT, Height, [...] tab(s), 0 Refill(s), 08/19/21 9:36:00 EDT, Pharmacy: [facility] #4605, Chronic back pain Lumbar radiculopathy, 180, [...] BID, # 60 cap(s), 0 Refill(s), Pharmacy: [facility], Epilepsy, 177.5, cm, 05/23/23 11:39:00 [...] S Vancomycin Islt MARITZA <=0.5 S Normal [facility] Comment on above: Performed By: #### M 100.3000, M100.1999 #### [facility] [address] [place], [address] Gram Stainon 09-11-[address] TOE Gram Stain No organisms seen No White Blood Cells Normal [facility] Comment on above: Performed By: #### M 100.3000, M100.1999 #### [facility] [address] [place], [address] Gram stainOrdered By: Janeen Morgan on 09-10-2024 Microscopic observation Gram stain Nom (Unsp spec) [facility] Routine wound cultureOrdered By: Jeffy Morgan on 09-10-2024 Microbial culture, routine Meth. resistant Staph. aureus Abnormal [facility] Chest without Contraston Chest without Contrast [facility] Imaging Services [address] [place] [address] Chest without Contrast MR#: [id number] Acct: [id number] Name: AMBROCIO TORREZ Rep #: [id number] : 1950 M 74 From: Mario perez MD PCP: Dr. Elana Hickman DO Status: REG ER Study: Chest without Contrast Date of Exam: 06/17/24 Exam# [id number] Ordering Dr: Neville Swan DO PROCEDURE: CHEST [...] acute findings in the thorax. Reading Location: [facility] CC: Dr. Neville Swan DO; Dr. Elana Hickman DO Department Helper: Signed Normal [facility] Elbow min 3 Viewson 06-18-19 Elbow min 3 Views [facility] Imaging Services [address] [place] [address] Elbow min 3 Views MR#: [id number] Acct: [id number] Name: AMBROCIO TORREZ Rep #: [id number] : 1950 M 74 From: Mario perez MD PCP: Dr. Elana Hickman DO Status: REG ER Study: Elbow min 3 Views Date of Exam: 06/17/24 Exam# [id number] Ordering Dr: Neville Swan DO PROCEDURE: ELBOW [...] acute findings of both elbows. Reading Location: [facility] CC: Dr. Neville Swan DO; Dr. Elana Hickman DO Department Helper: Signed Normal [facility] Elbow min 3 Views [facility] Imaging Services [address] [place] [address] Elbow min 3 Views MR#: [id number] Acct: [id number] Name: AMBROCIO TORREZ Rep #: [id number] : 1950 M 74 From: Mario perez MD PCP: Dr. Elana Hickman DO Status: REG ER Study: Elbow min 3 Views Date of Exam: 06/17/24 Exam# [id number] Ordering Dr: Neville Swan DO PROCEDURE: ELBOW [...] Neville Swan DO; Dr. Elana Hickman DO Department Helper: Signed Normal [facility] Emergency Department Summary on 06-17-2024 Emergency Department Summary [facility] Medical Records Department [address] [place] [address] Emergency Department Summary 06/17/24 MR#: [id number] Acct: [id number] Name: AMBROCIO TORREZ Rep #: [id number] : 1950 74 From: Neville Swan DO [...] applied hydrogen peroxide as well as bacitracin. [facility] Medical History Parkinson disease Hypertension Diabetes Home [...] and non-t (more content not included)... Normal [facility] Knee 4 or More Viewson 06-17 Knee 4 or More Views [facility] Imaging Services [address] [place] [address] Knee 4 or More Views MR#: [id number] Acct: [id number] Name: AMBROCIO TORREZ Rep #: [id number] : 1950 M 74 From: Mario perez MD PCP: Dr. Elana Hickman DO Status: REG ER Study: Knee 4 or More Views Date of Exam: 06/17/24 Exam# [id number] Ordering Dr: Neville Swan DO PROCEDURE: KNEE 4 OR MORE VIEWS 06/17/2024 REASON FOR EXAM: INJURY TECHNIQUE: 3 view(s) of the right knee COMPARISON: None FINDINGS: No significant joint space narrowing. Moderate chondrocalcinosis. Small marginal osteophytes. No acute fracture or dislocation. Small joint effusion and prepatellar soft tissue swelling. RAD/Knee 4 or More Views IMPRESSION: No acute findings. Degenerative changes. [facility] CC: Dr. Neville Swan DO; Dr. Elana Hickman DO Department Helper: Signed Normal [facility] Wound Cultureon 06-13-2024 WC 3RD MET LEFT [...] S Vancomycin Islt MARITZA 1 S Normal [facility] Comment on above: Performed By: #### M 100.3000, M1.1999 #### [facility] [address] [place], [place], [address] Gram Stainon 06-12-2024 GS 3RD MET LEFT FOOT Gram Stain 3+ Gram positive cocci 3+ Red Blood Cells Normal [facility] Comment on above: Performed By: #### M 100.3000, M1.1999 #### [facility] [address] [place], [address] Gram stainOrdered By: Janeen Morgan on 06-11-2024 Microscopic observation Gram stain Nom (Unsp spec) [facility] B1WBon 05-25-2024 Vitamin B1 Whl Bld 143.1 nmol/L Normal 66.5-200.0 [facility] Comment on above: Result Comment: This test was developed and its performance characteristics determined by [facility]. It has not been cleared or approved by the Food and Drug Administration. Performed At: [facility] [address] [id number] Deng Hilton MD Ph:[phone] Performed By: #### 1 , GFR, ANEU, CMP, ADIFF, TSH, PSA, CBC, LIPID, VIDH #### [place] [address] #### FOL, B12 #### [place] [address] .Auto Diffon 05-21-2024 Basophil, Absolute 0.0 10 3/mcL Normal 0.0-0.3 [facility] Comment on above: Performed By: #### 1 , GFR, ANEU, CMP, ADIFF, TSH, PSA, CBC, LIPID, VIDH #### [place] [address] #### FOL, B12 #### [place] [address] Basophils/100 WBC (Bld) 0.5 % Normal 0.0-2.5 [facility] Comment on above: Performed By: #### 1 , GFR, ANEU, CMP, ADIFF, TSH, PSA, CBC, LIPID, VIDH #### [place] [address] #### FOL, B12 #### [place] [address] Eosinophil, Absolute 0.4 10 3/mcL Normal 0.0-0.7 [facility] Comment on above: Performed By: #### 1 , GFR, ANEU, CMP, ADIFF, TSH, PSA, CBC, LIPID, VIDH #### [place] [address] #### FOL, B12 #### [address] [address] Eosinophils/100 WBC (Bld) 7.4 % High 0.0-6.0 [facility] Comment on above: Performed By: #### 1 , GFR, ANEU, CMP, ADIFF, TSH, PSA, CBC, LIPID, VIDH #### [address] [address] #### FOL, B12 #### [address] [address] Lymphocyte, Absolute 1.0 10 3/mcL Normal 0.9-4.3 [facility] Comment on above: Performed By: #### 1 , GFR, ANEU, CMP, ADIFF, TSH, PSA, CBC, LIPID, VIDH #### [address] [address] #### FOL, B12 #### [address] [address] Lymphocytes/100 WBC (Bld) 17.3 % Low 20.0-40.0 [facility] Comment on above: Performed By: #### 1 , GFR, ANEU, CMP, ADIFF, TSH, PSA, CBC, LIPID, VIDH #### [address] [address] #### FOL, B12 #### [address] [address] Monocyte, Absolute 0.5 10 3/mcL Normal 0.1-1.4 [facility] Comment on above: Performed By: #### 1 , GFR, ANEU, CMP, ADIFF, TSH, PSA, CBC, LIPID, VIDH #### [address] [address] #### FOL, B12 #### [address] [address] Monocytes/100 WBC (Bld) 8.5 % Normal 2.0-13.0 [facility] Comment on above: Performed By: #### 1 , GFR, ANEU, CMP, ADIFF, TSH, PSA, CBC, LIPID, VIDH #### [address] [address] #### FOL, B12 #### [address] [address] Neutrophils/100 WBC (Bld) 66.3 % Normal 50.0-75.0 [facility] Comment on above: Performed By: #### 1 [address], GFR, ANEU, CMP, ADIFF, TSH, PSA, CBC, LIPID, VIDH #### [address] [address] #### FOL, B12 #### [address] [address] .GFRon 05-21-2024 Estimated Glomerular Filtration Rate 50 ml/min/1.73sqm Normal [facility] Comment on above: Result Comment: Stages [...] the eGFR results. Performed By: #### 1 [address], GFR, ANEU, CMP, ADIFF, TSH, PSA, CBC, LIPID, VIDH #### [address] [address] #### FOL, B12 #### [address] [address] .NEUABSon 05-21-2024 Neutrophil, Absolute 3.8 10 3/mcL Normal 2.3-8.1 [facility] Comment on above: Performed By: #### 1 , GFR, ANEU, CMP, ADIFF, TSH, PSA, CBC, LIPID, VIDH #### [address] [address] #### FOL, B12 #### [address] [address] B12on 05-21-2024 Cobalamin (Vitamin B12) [Mass/Vol] 458 pg/mL Normal 211-911 [facility] Comment on above: Performed By: #### 1 , GFR, ANEU, CMP, ADIFF, TSH, PSA, CBC, LIPID, VIDH #### [address] [address] #### FOL, B12 #### [address] [address] CBCon 05-21-2024 Erythrocyte distribution width (RBC) [Ratio] 13.6 % Normal 11.5-15.5 [facility] Comment on above: Performed By: #### 1 , GFR, ANEU, CMP, ADIFF, TSH, PSA, CBC, LIPID, VIDH #### [address] [address] #### FOL, B12 #### [address] [address] Hematocrit (Bld) [Volume fraction] 49.2 % Normal 40.0-52.0 [facility] Comment on above: Performed By: #### 1 , GFR, ANEU, CMP, ADIFF, TSH, PSA, CBC, LIPID, VIDH #### [address] [address] #### FOL, B12 #### [address] [address] Hgb 16.5 G/dL Normal 13.0-17.5 [facility] Comment on above: Performed By: #### 1 , GFR, ANEU, CMP, ADIFF, TSH, PSA, CBC, LIPID, VIDH #### [address] [address] #### FOL, B12 #### [address] [address] MCH (RBC) [Entitic mass] 30.8 pg Normal 27.0-33.0 [facility] Comment on above: Performed By: #### 1 , GFR, ANEU, CMP, ADIFF, TSH, PSA, CBC, LIPID, VIDH #### [address] [address] #### FOL, B12 #### [address] [address] MCHC 33.6 G/dL Normal 32.0-36.0 [facility] Comment on above: Performed By: #### 1 , GFR, ANEU, CMP, ADIFF, TSH, PSA, CBC, LIPID, VIDH #### [place] [address] #### FOL, B12 #### [place] [address] MCV (RBC) [Entitic vol] 91.8 fL Normal 81.0-100.0 [facility] Comment on above: Performed By: #### 1 , GFR, ANEU, CMP, ADIFF, TSH, PSA, CBC, LIPID, VIDH #### [place] [address] #### FOL, B12 #### [place] [address] Platelet 175 10 3/mcL Normal 150-450 [facility] Comment on above: Performed By: #### 1 , GFR, ANEU, CMP, ADIFF, TSH, PSA, CBC, LIPID, VIDH #### [place] [address] #### FOL, B12 #### [place] [address] Platelet mean volume (Bld) [Entitic vol] 10.0 fL Normal 6.4-10.5 [facility] Comment on above: Performed By: #### 1 , GFR, ANEU, CMP, ADIFF, TSH, PSA, CBC, LIPID, VIDH #### [place] [address] #### FOL, B12 #### [place] [address] RBC 5.36 10 6/mcL Normal 4.50-6.00 [facility] Comment on above: Performed By: #### 1 , GFR, ANEU, CMP, ADIFF, TSH, PSA, CBC, LIPID, VIDH #### [address] [address] #### WAYLON, B12 #### [address] [address] WBC 5.7 10 3/mcL Normal 4.5-10.8 [facility] Comment on above: Performed By: #### 1 , GFR, ANEU, CMP, ADIFF, TSH, PSA, CBC, LIPID, VIDH #### [address] [address] #### WAYLON, B12 #### [address] [address] CMPon 05-21-2024 ALT [Catalytic activity/Vol] 11 U/L Low 16-63 [facility] Comment on above: Performed By: #### 1 , GFR, ANEU, CMP, ADIFF, TSH, PSA, CBC, LIPID, VIDH #### [address] [address] #### WAYLON, B12 #### [address] [address] Albumin Level 3.8 G/dL Normal 3.4-4.8 [facility] Comment on above: Performed By: #### 1 , GFR, ANEU, CMP, ADIFF, TSH, PSA, CBC, LIPID, VIDH #### [place] [address] #### FOL, B12 #### [address] [address] Albumin/Globulin [Mass ratio] 1.1 {ratio} Normal 1.1-2.5 [facility] Comment on above: Performed By: #### 1 , GFR, ANEU, CMP, ADIFF, TSH, PSA, CBC, LIPID, VIDH #### [place] [address] #### FOL, B12 #### [address] [address] ALP [Catalytic activity/Vol] 41 U/L Normal 40-135 [facility] Comment on above: Performed By: #### 1 , GFR, ANEU, CMP, ADIFF, TSH, PSA, CBC, LIPID, VIDH #### [address] [address] #### FOL, B12 #### [address] [address] AST [Catalytic activity/Vol] 11 U/L Normal 10-40 [facility] Comment on above: Performed By: #### 1 , GFR, ANEU, CMP, ADIFF, TSH, PSA, CBC, LIPID, VIDH #### [address] [address] #### WAYLON, B12 #### [place] [address] Bili Total 0.8 mg/dL Normal 0.2-1.0 [facility] Comment on above: Result Comment: Use of this assay is not recommended for patients undergoing treatment with eltrombopag due to the potential for falsely elevated results. Performed By: #### 1 , GFR, ANEU, CMP, ADIFF, TSH, PSA, CBC, LIPID, VIDH #### [address] [address] #### FOL, B12 #### [place] [address] BUN/Creatinine Ratio 29 ratio High 7-27 [facility] Comment on above: Performed By: #### 1 , GFR, ANEU, CMP, ADIFF, TSH, PSA, CBC, LIPID, VIDH #### [address] [address] #### FOL, B12 #### [address] [address] Calcium [Mass/Vol] 9.5 mg/dL Normal 8.4-10.2 [facility] Comment on above: Performed By: #### 1 , GFR, ANEU, CMP, ADIFF, TSH, PSA, CBC, LIPID, VIDH #### [address] [address] #### FOL, B12 #### [address] [address] Chloride [Moles/Vol] 103 mmol/L Normal 98-107 [facility] Comment on above: Performed By: #### 1 , GFR, ANEU, CMP, ADIFF, TSH, PSA, CBC, LIPID, VIDH #### [address] [address] #### FOL, B12 #### [address] [address] CO2 [Moles/Vol] 32 mmol/L High 23-31 [facility] Comment on above: Performed By: #### 1 , GFR, ANEU, CMP, ADIFF, TSH, PSA, CBC, LIPID, VIDH #### [place] [address] #### FOL, B12 #### [address] [address] Creatinine [Mass/Vol] 1.47 mg/dL High 0.70-1.30 [facility] Comment on above: Result Comment: Test ing performed on Siemens Dimension EXL analyzer using a modified kinetic Carolyn technique. Performed By: #### 1 , GFR, ANEU, CMP, ADIFF, TSH, PSA, CBC, LIPID, VIDH #### [address] [address] #### FOL, B12 #### [address] [address] Electrolyte Balance 7.0 mEq/L Normal 4.0-15.0 [facility] Comment on above: Performed By: #### 1 , GFR, ANEU, CMP, ADIFF, TSH, PSA, CBC, LIPID, VIDH #### [address] [address] #### FOL, B12 #### [place] [address] Globulin 3.4 G/dL Normal 1.5-3.8 [facility] Comment on above: Performed By: #### 1 , GFR, ANEU, CMP, ADIFF, TSH, PSA, CBC, LIPID, VIDH #### [address] [address] #### FOL, B12 #### [address] [address] Glucose [Mass/Vol] 166 mg/dL High 83-110 [facility] Comment on above: Performed By: #### 1 , GFR, ANEU, CMP, ADIFF, TSH, PSA, CBC, LIPID, VIDH #### [address] [address] #### FOL, B12 #### [address] [address] Potassium [Moles/Vol] 3.9 mmol/L Normal 3.5-5.1 [facility] Comment on above: Performed By: #### 1 , GFR, ANEU, CMP, ADIFF, TSH, PSA, CBC, LIPID, VIDH #### [address] [address] #### FOL, B12 #### [address] [address] Sodium [Moles/Vol] 142 mmol/L Normal 136-145 [facility] Comment on above: Performed By: #### 1 , GFR, ANEU, CMP, ADIFF, TSH, PSA, CBC, LIPID, VIDH #### [address] [address] #### FOL, B12 #### [address] [address] Total Protein 7.2 G/dL Normal 6.4-8.2 [facility] Comment on above: Performed By: #### 1 , GFR, ANEU, CMP, ADIFF, TSH, PSA, CBC, LIPID, VIDH #### [address] [address] #### FOL, B12 #### [address] [address] Urea nitrogen [Mass/Vol] 42 mg/dL High 7-18 [facility] Comment on above: Performed By: #### 1 , GFR, ANEU, CMP, ADIFF, TSH, PSA, CBC, LIPID, VIDH #### [address] [address] #### FOL, B12 #### [address] [address] FOLon 05-21-2024 Folate 19.66 ng/mL Normal 5.38-24.00 [facility] Comment on above: Performed By: #### 1 , GFR, ANEU, CMP, ADIFF, TSH, PSA, CBC, LIPID, VIDH #### [address] [address] #### FOL, B12 #### [address] [address] LIPIDon 05-21-2024 Cholesterol [Mass/Vol] 148 mg/dL Normal 0-200 [facility] Comment on above: Result Comment: Chol esterol Reference Interval: Less than 200 Desirable 200-239 Borderline high risk 240 and above High risk Performed By: #### 1 , GFR, ANEU, CMP, ADIFF, TSH, PSA, CBC, LIPID, VIDH #### [address] [address] #### FOL, B12 #### [address] [address] Cholesterol in HDL [Mass/Vol] 40 mg/dL Normal 40-60 [facility] Comment on above: Performed By: #### 1 , GFR, ANEU, CMP, ADIFF, TSH, PSA, CBC, LIPID, VIDH #### [address] [address] #### FOL, B12 #### [address] [address] Cholesterol in LDL [Mass/Vol] 83 mg/dL Normal 0-130 [facility] Comment on above: Performed By: #### 1 , GFR, ANEU, CMP, ADIFF, TSH, PSA, CBC, LIPID, VIDH #### [address] [address] #### FOL, B12 #### [address] [address] Triglyceride [Mass/Vol] 125 mg/dL Normal 0-150 [facility] Comment on above: Result Comment: Trig lyceride Reference Interval: Less than 150 Normal 150-199 Borderline high risk 200-499 High risk 500 or higher Very high risk Performed By: #### 1 [address], GFR, ANEU, CMP, ADIFF, TSH, PSA, CBC, LIPID, VIDH #### [address] [address] #### WAYLON, B12 #### [address] [address] MALBRon 05-21-2024 U Creatinine 92.0 mg/dL Normal [facility] Comment on above: Performed By: #### M ALBR #### [address] [address] U Microalb 97.4 mg/L Normal [facility] Comment on above: Performed By: #### M ALBR #### [address] [address] U Ratio Alb/Cre 106 mg/G High 0-30 [facility] Comment on above: Performed By: #### M ALBR #### [address] [address] PSAon 05-21-2024 Prostate Specific Antigen 6.11 ng/mL High 0.00-4.00 [facility] Comment on above: Order Comment: cc re darline to Dr. Adams Performed By: #### 1 , GFR, ANEU, CMP, ADIFF, TSH, PSA, CBC, LIPID, VIDH #### [address] [address] #### FOL, B12 #### [address] [address] TSHon 05-21-2024 TSH Qn 1.40 m[IU]/L Normal 0.36-3.74 [facility] Comment on above: Performed By: #### 1 [address], GFR, ANEU, CMP, ADIFF, TSH, PSA, CBC, LIPID, VIDH #### [address] [address] #### FOL, B12 #### [address] [address] VIDHon 05-21-2024 Vit. D 25-Hydroxy 58.6 ng/mL Normal [facility] Comment on above: Result Comment: Inte rpretive Values Based on Total 25(OH) Vitamin D: Deficient <20 ng/mL Insufficient 20 - <30 ng/mL Sufficient 30-100 ng/mL Performed By: #### 1 [address], GFR, ANEU, CMP, ADIFF, TSH, PSA, CBC, LIPID, VIDH #### [address] [address] #### FOL, B12 #### [address] [address] [id number] 03-13-2024 [facility] Misc. COMMENT Normal . [facility] Comment on above: Order Comment: 60120 1ANAEROBIC/AEROBIC W GRAM STAIN Result Comment: Test Ordered: [id number] Anaerobic/Aerobic/Gram Stain Anaerobic Culture Note: CB Final [...] of gram positive cocci. Performed at: - [facility] [id number] [employer] Officer: Jeremy Escobar PhD, Phone: [phone] Performed By: #### M 100.3000, M100.2000 #### [facility] [address] [facility] [place], [address] Foot min 3 Viewson 5 Foot min 3 Views [facility] Imaging Services [address] [place], [place] [address] Foot min 3 Views MR#: [id number] Acct: [id number] Name: AMBROCIO TORREZ Rep #: [id number] : 1950 M 74 From: Dutch anne DO PCP: Dr. Elana Hickman, Status: REG RCR Study: Foot min 3 Views Date of Exam: 03/06/24 Exam# [id number] Ordering Dr: Jeffy Morgan DPM [id number] EXAM: XR RIGHT FOOT COMPLETE, 3 OR [...] CC: LEEROY Morgan; Dr. Elana Hickman DO Department Helper: Signed Normal [facility] Wound Ctr History AND Physic jerry 03-06-2024 Wound Ctr History & Physical [facility] [address] [place] [address] H P Exam - Wound Care 03/06/24 1006 MR#: [id number] Acct: [id number] Name: AMBROCIO TORREZ Rep #: [id number] : 1950 74 From: Jeffy Morgan DPM PCP: Dr. Elana Hickman DO Status:REG RCR Location: History of Present Illness Date of Service: 03/06/24 Chief Complaint: Right full-thickness wound third digit History of Wound: Chronic full-thickness wound third digit Progress of Wound: Mr. Torrez is a 74-year-old diabetic male presenting to wound care center today after referral from a Dr. Larson who is his roll tension tester for palliative footcare. The patient has developed a full- thickness wound to the far end of his right third digit. He was seen at the emergency room at [facility] where he was evaluated and treated. He [...] symptoms. Other pedal complaints at this time. REPLACED BY [facility] Medical History Parkinson disease Hypertension Diabetes Home [...] Date Act (more content not included)... Normal [facility] Wound Cultureon 2024 Staphylococcus aureu s Amount [...] S Vancomycin Islt MARITZA 1 S Normal [facility] Comment on above: Performed By: #### M 100.1999, M100.3000 #### [facility] [address] [place], [place], [id number] Gram Stainon 01-31-2024 GS Gram Stain 2+ Gram positive cocci Rare Gram positive rods No Epithelial cells No White Blood Cells Normal [facility] Comment on above: Performed By: #### M 100.1999, M100.3000 #### [facility] [address] [place], [address] Basic Metabolic Profile (BMP )on 12-17-2024 BUN/CRE 25.9 RATIO High 10-20 [facility] Comment on above: Performed By: #### M 100.3000, #### [facility] [address] [place], [address] CA,Total 9.4 mg/dL Normal 8.5-10.1 [facility] Comment on above: Performed By: #### M 100.3000, #### [facility] [address] [place], [address] Chloride [Moles/Vol] 106 mmol/L Normal 98-107 [facility] Comment on above: Performed By: #### M 100.3000, #### [facility] [address] [place], [address] CO2 [Moles/Vol] 29.0 mmol/L Normal 21.0-32.0 [facility] Comment on above: Performed By: #### M 100.3000, #### [facility] [address] [place], [address] Creatinine [Mass/Vol] 1.35 mg/dL High 0.70-1.30 [facility] Comment on above: Result Comment: The validity of the calculated GFR GFRAA in patients over 70 years has not been determined. Clinical correlation is essential. Performed By: #### M 100.3000, #### [facility] [address] [place], [address] ECRCL 61.45 ml/min Normal [facility] Comment on above: Performed By: #### M 100.3000, #### [facility] [address] [place], [address] EST GFR - AA 67 mL/min Normal >60 [facility] Comment on above: Result Comment: Afri can Congolese GFR Calc Performed By: #### M 100.3000, #### [facility] [address] [place], [address] GAP 4 Low 5-15 [facility] Comment on above: Performed By: #### M 100.3000, #### [facility] [address] [place], [address] GFR/1.73 sq M.predicted among non-blacks MDRD (S/P/Bld) [Vol rate/Area] 55 mL/min/{1.73_m2} Low >60 [facility] Comment on above: Result Comment: Non- GFR Calc Performed By: #### M 100.3000, #### [facility] [address] [place], [address] Glucose [Mass/Vol] 157 mg/dL High 74-106 [facility] Comment on above: Result Comment: Fast ing Glucose result greater than or equal to 126 mg/dL suggests DIABETES MELLITUS per A.D.A. criteria. Performed By: #### M 100.3000, #### [facility] [address] [place], [address] Potassium [Moles/Vol] 4.0 mmol/L Normal 3.5-5.1 [facility] Comment on above: Performed By: #### M 100.3000, #### [facility] [address] [place], [address] Sodium [Moles/Vol] 139 mmol/L Normal 136-145 [facility] Comment on above: Performed By: #### M 100.3000, #### [facility] [address] [place], [address] Urea nitrogen [Mass/Vol] 35 mg/dL High 7-18 [facility] Comment on above: Performed By: #### M 100.3000, #### [facility] [address] [place], [address] CBC W/Diff, Automatedon 12- Absolute Lymph 0.94 X10 3/uL Normal 0.83-4.51 [facility] Comment on above: Performed By: #### M 100.3000, #### [facility] [address] [place], [address] Absolute Neut 5.3 X10 3/uL Normal 2.0-7.7 [facility] Comment on above: Performed By: #### M 100.3000, #### [facility] [address] [place], [address] Basophils/100 WBC (Bld) 0.4 % Normal 0-1 [facility] Comment on above: Performed By: #### M 100.3000, #### [facility] [address] [place], [address] Eosinophils/100 WBC (Bld) 4.7 % Normal 0-5 [facility] Comment on above: Performed By: #### M 100.3000, #### [facility] [address] [place], [address] Erythrocyte distribution width (RBC) [Ratio] 12.0 % Normal 11.6-14.6 [facility] Comment on above: Performed By: #### M 100.3000, #### [facility] [address] [place], [address] Hematocrit (Bld) [Volume fraction] 47.6 % Normal 40-54 [facility] Comment on above: Performed By: #### M 100.3000, #### [facility] [address] [place], [address] Hemoglobin (Bld) [Mass/Vol] 16.2 g/dL Normal 13.0-16.5 [facility] Comment on above: Performed By: #### M 100.3000, #### [facility] [address] [place], [address] IG% 0.400 Normal 0.0-0.9 [facility] Comment on above: Result Comment: IG% - Immature Granulocytes (promyelocytes, myelocytes and metamyelocytes) > 1% indicates that a LEFT SHIFT is Present. Performed By: #### M 100.3000, #### [facility] [address] [place], [address] Lymphocytes/100 WBC (Bld) 13.0 % Low 19-41 [facility] Comment on above: Performed By: #### M 100.3000, #### [facility] [address] [place], [address] MCH (RBC) [Entitic mass] 30.9 pg Normal 27.0-32.0 [facility] Comment on above: Performed By: #### M 100.3000, #### [facility] [address] [place], [address] MCHC (RBC) [Mass/Vol] 34.0 g/dL Normal 32-36 [facility] Comment on above: Performed By: #### M 100.3000, #### [facility] [address] [place], [address] MCV (RBC) [Entitic vol] 90.7 fL Normal 80-94 [facility] Comment on above: Performed By: #### M 100.3000, #### [facility] [address] [place], [address] Monocytes/100 WBC (Bld) 7.5 % Normal 0-10 [facility] Comment on above: Performed By: #### M 100.3000, #### [facility] [address] [place], [address] Neutrophils/100 WBC (Bld) 74.0 % High 47-70 [facility] Comment on above: Performed By: #### M 100.3000, #### [facility] [address] [place], [address] Nucleated RBC (Bld) [#/Vol] 0 10*3/uL Normal 0-5 [facility] Comment on above: Performed By: #### M 100.3000, #### [facility] [address] [place], [address] Platelet mean volume (Bld) [Entitic vol] 11.1 fL Normal 6.2-12.0 [facility] Comment on above: Performed By: #### M 100.3000, #### [facility] [address] [place], [address] Platelets (Bld) [#/Vol] 192 10*3/uL Normal 150-450 [facility] Comment on above: Performed By: #### M 100.3000, #### [facility] [address] [place], [address] RBC (Bld) [#/Vol] 5.25 10*6/uL Normal 4.6-6.[address] [facility] Comment on above: Performed By: #### M 100.3000, #### [facility] [address] [place], [address] RDW SD 39.8 fl Normal 35.1-43.9 [facility] Comment on above: Performed By: #### M 100.3000, #### [facility] [address] [place], [address] WBC (Bld) [#/Vol] 7.2 10*3/uL Normal 4.4-11.0 [facility] Comment on above: Performed By: #### M 100.3000, #### [facility] [address] [place], [address] Emergency Department Summary on 01-30-2024 Emergency Department Summary [facility] Medical Records Department [address] [place] [address] Emergency Department Summary 01/30/24 MR#: [id number] Acct: [id number] Name: AMBROCIO TORREZ Rep #: [id number] : 1950 73 From: Neville Swan DO [...] second and third toe. He sees a roll tension tester out of [place] and they see him in [place]. He denies any fevers. [facility] Medical History Parkinson disease Hypertension Diabetes Home [...] and CN's (more content not included)... Normal [facility] Foot min 3 Viewson 4 Foot min 3 Views [facility] Imaging Services [address] [place], [place] [id number] Foot min 3 Views MR#: [id number] Acct: [id number] Name: AMBROCIO TORREZ Rep #: [id number] : 1950 M 73 From: Adelfo joy MD PCP: Dr. Elana Hickman DO Status: REG ER Study: Foot min 3 Views Date of Exam: 01/30/24 Exam# [id number] Ordering Dr: Neville Swan DO [id number] STUDY: X-RAY - RIGHT FOOT CLINICAL: Male, [...] Neville Swan, DO; Dr. Elana Hickman, DO Department Helper: Signed Normal [facility] .Auto Diffon 11-02-2023 Basophil, Absolute 0.0 10 3/mcL Normal 0.0-0.2 [facility] Comment on above: Performed By: #### 1 , GFR, ANEU, CMP, ADIFF, TSH, PSA, CBC, LIPID, VIDH #### [address] [address] #### FOL, B12 #### [address] [address] Basophils/100 WBC (Bld) 0.5 % Normal 0.0-2.5 [facility] Comment on above: Performed By: #### 1 , GFR, ANEU, CMP, ADIFF, TSH, PSA, CBC, LIPID, VIDH #### [address] [address] #### FOL, B12 #### [address] [address] Eosinophil, Absolute 0.5 10 3/mcL High 0.0-0.4 [facility] Comment on above: Performed By: #### 1 , GFR, ANEU, CMP, ADIFF, TSH, PSA, CBC, LIPID, VIDH #### [address] [address] #### FOL, B12 #### [address] [address] Eosinophils/100 WBC (Bld) 8.6 % High 0.0-7.0 [facility] Comment on above: Performed By: #### 1 , GFR, ANEU, CMP, ADIFF, TSH, PSA, CBC, LIPID, VIDH #### [address] [address] #### FOL, B12 #### [address] [address] Lymphocyte, Absolute 1.5 10 3/mcL Normal 0.8-3.9 [facility] Comment on above: Performed By: #### 1 , GFR, ANEU, CMP, ADIFF, TSH, PSA, CBC, LIPID, VIDH #### [place] [address] #### FOL, B12 #### [address] [address] Lymphocytes/100 WBC (Bld) 27.7 % Normal 10.0-50.0 [facility] Comment on above: Performed By: #### 1 , GFR, ANEU, CMP, ADIFF, TSH, PSA, CBC, LIPID, VIDH #### [place] [address] #### FOL, B12 #### [address] [address] Monocyte, Absolute 0.6 10 3/mcL Normal 0.2-1.0 [facility] Comment on above: Performed By: #### 1 , GFR, ANEU, CMP, ADIFF, TSH, PSA, CBC, LIPID, VIDH #### [address] [address] #### FOL, B12 #### [address] [address] Monocytes/100 WBC (Bld) 10.8 % Normal 1.7-13.0 [facility] Comment on above: Performed By: #### 1 , GFR, ANEU, CMP, ADIFF, TSH, PSA, CBC, LIPID, VIDH #### [place] [address] #### FOL, B12 #### [address] [address] Neutrophils/100 WBC (Bld) 52.4 % Normal 37.0-80.0 [facility] Comment on above: Performed By: #### 1 [address], GFR, ANEU, CMP, ADIFF, TSH, PSA, CBC, LIPID, VIDH #### [address] [address] #### FOL, B12 #### [address] [address] .GFRon 11-02-2023 GFR 60 ml/min/1.73sqm Normal [facility] Comment on above: Result Comment: GFR [...] mL/min/1.73 square meters Performed By: #### 1 [address], GFR, ANEU, CMP, ADIFF, TSH, PSA, CBC, LIPID, VIDH #### [address] [address] #### FOL, B12 #### [address] [address] GFR Non- 50 ml/min/1.73sqm Normal [facility] Comment on above: Result Comment: GFR [...] mL/min/1.73 square meters Performed By: #### 1 [address], GFR, ANEU, CMP, ADIFF, TSH, PSA, CBC, LIPID, VIDH #### [place] [address] #### FOL, B12 #### [address] [address] .NEUABSon 11-02-2023 Neutrophil, Absolute 2.8 10 3/mcL Low 2.9-6.2 [facility] Comment on above: Performed By: #### 1 , GFR, ANEU, CMP, ADIFF, TSH, PSA, CBC, LIPID, VIDH #### [place] [address] #### FOL, B12 #### [place] [address] A1Con 11-02-2023 Glucose [Mass/Vol] 217 mg/dL Normal [facility] Comment on above: Result Comment: Lilli mated Average Glucose calculated by equation ((28.7xA1C)-46.7) Estimated average glucose (eAG) is a calculated value from Hemoglobin A1C and is tax representative of the average blood glucose level in the last 2-3 month period. Normal range: less than 114 mg/dL Performed By: #### 1 , GFR, ANEU, CMP, ADIFF, TSH, PSA, CBC, LIPID, VIDH #### [address] [address] #### FOL, B12 #### [address] [address] HbA1c (Bld) [Mass fraction] 9.2 % High 4.3-6.4 [facility] Comment on above: Performed By: #### 1 , GFR, ANEU, CMP, ADIFF, TSH, PSA, CBC, LIPID, VIDH #### [address] [address] #### FOL, B12 #### [address] [address] CBCon 11-02-2023 Erythrocyte distribution width (RBC) [Ratio] 13.2 % Normal 11.5-14.5 [facility] Comment on above: Performed By: #### 1 , GFR, ANEU, CMP, ADIFF, TSH, PSA, CBC, LIPID, VIDH #### [place] [address] #### FOL, B12 #### [place] [address] Hematocrit (Bld) [Volume fraction] 48.8 % Normal 42.0-52.0 [facility] Comment on above: Performed By: #### 1 , GFR, ANEU, CMP, ADIFF, TSH, PSA, CBC, LIPID, VIDH #### [place] [address] #### FOL, B12 #### [place] [address] Hgb 16.5 G/dL Normal 14.0-18.0 [facility] Comment on above: Performed By: #### 1 , GFR, ANEU, CMP, ADIFF, TSH, PSA, CBC, LIPID, VIDH #### [address] [address] #### FOL, B12 #### [place] [address] MCH (RBC) [Entitic mass] 31.5 pg High 27.0-31.2 [facility] Comment on above: Performed By: #### 1 , GFR, ANEU, CMP, ADIFF, TSH, PSA, CBC, LIPID, VIDH #### [place] [address] #### FOL, B12 #### [place] [address] MCHC 33.9 G/dL Normal 31.8-35.4 [facility] Comment on above: Performed By: #### 1 , GFR, ANEU, CMP, ADIFF, TSH, PSA, CBC, LIPID, VIDH #### [place] [address] #### WAYLON, B12 #### [place] [address] MCV (RBC) [Entitic vol] 92.8 fL Normal 80.0-94.0 [facility] Comment on above: Performed By: #### 1 , GFR, ANEU, CMP, ADIFF, TSH, PSA, CBC, LIPID, VIDH #### [place] [address] #### WAYLON, B12 #### [place] [address] Platelet 193 10 3/mcL Normal 130-400 [facility] Comment on above: Performed By: #### 1 , GFR, ANEU, CMP, ADIFF, TSH, PSA, CBC, LIPID, VIDH #### [place] [address] #### WAYLON, B12 #### [place] [address] Platelet mean volume (Bld) [Entitic vol] 10.3 fL Normal 7.4-10.4 [facility] Comment on above: Performed By: #### 1 , GFR, ANEU, CMP, ADIFF, TSH, PSA, CBC, LIPID, VIDH #### [place] [address] #### FOL, B12 #### [place] [address] RBC 5.25 10 6/mcL Normal 4.04-6.13 [facility] Comment on above: Performed By: #### 1 , GFR, ANEU, CMP, ADIFF, TSH, PSA, CBC, LIPID, VIDH #### [place] [address] #### FOL, B12 #### [place] [address] WBC 5.3 10 3/mcL Normal 4.6-10.8 [facility] Comment on above: Performed By: #### 1 , GFR, ANEU, CMP, ADIFF, TSH, PSA, CBC, LIPID, VIDH #### [address] [address] #### WAYLON, B12 #### [address] [address] CMPon 11-02-2023 Albumin Level 3.9 G/dL Normal 3.4-4.8 [facility] Comment on above: Performed By: #### 1 , GFR, ANEU, CMP, ADIFF, TSH, PSA, CBC, LIPID, VIDH #### [place] [address] #### WAYLON, B12 #### [place] [address] Albumin/Globulin [Mass ratio] 1.4 {ratio} Normal 1.1-2.5 [facility] Comment on above: Performed By: #### 1 , GFR, ANEU, CMP, ADIFF, TSH, PSA, CBC, LIPID, VIDH #### [place] [address] #### FOL, B12 #### [place] [address] ALP [Catalytic activity/Vol] 45 U/L Normal 40-135 [facility] Comment on above: Performed By: #### 1 , GFR, ANEU, CMP, ADIFF, TSH, PSA, CBC, LIPID, VIDH #### [place] [address] #### FOL, B12 #### [place] [id number] ALT [Catalytic activity/Vol] 14 U/L Low 16-63 [facility] Comment on above: Performed By: #### 1 , GFR, ANEU, CMP, ADIFF, TSH, PSA, CBC, LIPID, VIDH #### [place] [address] #### FOL, B12 #### [address] [address] AST [Catalytic activity/Vol] 13 U/L Normal 10-40 [facility] Comment on above: Performed By: #### 1 , GFR, ANEU, CMP, ADIFF, TSH, PSA, CBC, LIPID, VIDH #### [place] [address] #### FOL, B12 #### [place] [address] Bili Total 0.8 mg/dL Normal 0.2-1.0 [facility] Comment on above: Result Comment: Use of this assay is not recommended for patients undergoing treatment with eltrombopag due to the potential for falsely elevated results. Performed By: #### 1 , GFR, ANEU, CMP, ADIFF, TSH, PSA, CBC, LIPID, VIDH #### [place] [address] #### FOL, B12 #### [place] [address] BUN/Creatinine Ratio 26 ratio Normal 7-27 [facility] Comment on above: Performed By: #### 1 , GFR, ANEU, CMP, ADIFF, TSH, PSA, CBC, LIPID, VIDH #### [place] [address] #### FOL, B12 #### [place] [address] Calcium [Mass/Vol] 9.3 mg/dL Normal 8.4-10.2 [facility] Comment on above: Performed By: #### 1 , GFR, ANEU, CMP, ADIFF, TSH, PSA, CBC, LIPID, VIDH #### [place] [address] #### FOL, B12 #### [place] [address] Chloride [Moles/Vol] 103 mmol/L Normal 98-107 [facility] Comment on above: Performed By: #### 1 [address], GFR, ANEU, CMP, ADIFF, TSH, PSA, CBC, LIPID, VIDH #### [address] [address] #### FOL, B12 #### [address] [address] CO2 [Moles/Vol] 31 mmol/L Normal 23-31 [facility] Comment on above: Performed By: #### 1 , GFR, ANEU, CMP, ADIFF, TSH, PSA, CBC, LIPID, VIDH #### [address] [address] #### FOL, B12 #### [address] [address] Creatinine [Mass/Vol] 1.40 mg/dL High 0.70-1.30 [facility] Comment on above: Result Comment: Test ing performed on Siemens Dimension EXL analyzer using a modified kinetic Carolyn technique. Performed By: #### 1 , GFR, ANEU, CMP, ADIFF, TSH, PSA, CBC, LIPID, VIDH #### [address] [address] #### FOL, B12 #### [address] [address] Electrolyte Balance 9.0 mEq/L Normal 4.0-15.0 [facility] Comment on above: Performed By: #### 1 , GFR, ANEU, CMP, ADIFF, TSH, PSA, CBC, LIPID, VIDH #### [address] [address] #### FOL, B12 #### [address] [address] Globulin 2.8 G/dL Normal [facility] Comment on above: Performed By: #### 1 , GFR, ANEU, CMP, ADIFF, TSH, PSA, CBC, LIPID, VIDH #### [address] [address] #### FOL, B12 #### [address] [address] Glucose [Mass/Vol] 99 mg/dL Normal 83-110 [facility] Comment on above: Performed By: #### 1 , GFR, ANEU, CMP, ADIFF, TSH, PSA, CBC, LIPID, VIDH #### [address] [address] #### FOL, B12 #### [address] [address] Potassium [Moles/Vol] 3.9 mmol/L Normal 3.5-5.1 [facility] Comment on above: Performed By: #### 1 , GFR, ANEU, CMP, ADIFF, TSH, PSA, CBC, LIPID, VIDH #### [address] [address] #### FOL, B12 #### [address] [address] Sodium [Moles/Vol] 143 mmol/L Normal 136-145 [facility] Comment on above: Performed By: #### 1 , GFR, ANEU, CMP, ADIFF, TSH, PSA, CBC, LIPID, VIDH #### [address] [address] #### FOL, B12 #### [address] [address] Total Protein 6.7 G/dL Normal 6.4-8.2 [facility] Comment on above: Performed By: #### 1 , GFR, ANEU, CMP, ADIFF, TSH, PSA, CBC, LIPID, VIDH #### [address] [address] #### FOL, B12 #### [address] [address] Urea nitrogen [Mass/Vol] 37 mg/dL High 7-18 [facility] Comment on above: Performed By: #### 1 , GFR, ANEU, CMP, ADIFF, TSH, PSA, CBC, LIPID, VIDH #### [address] [address] #### FOL, B12 #### [address] [place], [place] [address] LABORATORYOrdered By: SYSTEM SYSTEM on 11-02-2023 25-hydroxyvitamin [...] calculated value from Hemoglobin A1C and is tax representative of the average blood glucose level [...] 11-02-2023 Cholesterol [Mass/Vol] 162 mg/dL Normal 0-200 [facility] Comment on above: Result Comment: Chol esterol Reference Interval: Less than 200 Desirable 200-239 Borderline high risk 240 and above High risk Performed By: #### 1 , GFR, ANEU, CMP, ADIFF, TSH, PSA, CBC, LIPID, VIDH #### [place] [id number] [place], [place] [address] #### FOL, B12 #### [facility] [address] [place] [address] Cholesterol in HDL [Mass/Vol] 40 mg/dL Normal 40-60 [facility] Comment on above: Performed By: #### 1 , GFR, ANEU, CMP, ADIFF, TSH, PSA, CBC, LIPID, VIDH #### [address] [address] #### FOL, B12 #### [address] [address] Cholesterol in LDL [Mass/Vol] 90 mg/dL Normal 0-130 [facility] Comment on above: Performed By: #### 1 , GFR, ANEU, CMP, ADIFF, TSH, PSA, CBC, LIPID, VIDH #### [address] [address] #### FOL, B12 #### [place] [address] Triglyceride [Mass/Vol] 158 mg/dL High 0-150 [facility] Comment on above: Result Comment: Trig lyceride Reference Interval: Less than 150 Normal 150-199 Borderline high risk 200-499 High risk 500 or higher Very high risk Performed By: #### 1 , GFR, ANEU, CMP, ADIFF, TSH, PSA, CBC, LIPID, VIDH #### [address] [address] #### FOL, B12 #### [place] [address] PSAon 11-02-2023 Prostate Specific Antigen 6.20 ng/mL High 0.00-4.00 [facility] Comment on above: Performed By: #### 1 , GFR, ANEU, CMP, ADIFF, TSH, PSA, CBC, LIPID, VIDH #### [address] [address] #### FOL, B12 #### [place] [address] TSHon 11-02-2023 TSH Qn 2.31 m[IU]/L Normal 0.36-3.74 [facility] Comment on above: Performed By: #### 1 , GFR, ANEU, CMP, ADIFF, TSH, PSA, CBC, LIPID, VIDH #### [address] [address] #### FOL, B12 #### [place] [id number] [place] [address] VIDHon 11-02-2023 Vit. D 25-Hydroxy 44.4 ng/mL Normal [facility] Comment on above: Result Comment: Inte rpretive Values Based on Total 25(OH) Vitamin D: Deficient <20 ng/mL Insufficient 20 - <30 ng/mL Sufficient 30-100 ng/mL Performed By: #### 1 [address], GFR, ANEU, CMP, ADIFF, TSH, PSA, CBC, LIPID, VIDH #### [place] [id number] [place], [place] [address] #### FOL, B12 #### [place] [id number] XR KNEE THREE VIEWS RIGHTon 02-03-2023 XR KNEE THREE VIEWS RIGHT ORIGINAL EXAMINATION: THREE XRAY VIEWS OF THE RIGHT KNEE02/03/2023 8:48 am COMPARISON: None available HISTORY: ORDERING SYSTEM PROVIDED HISTORY: Reason for Exam: Right knee pain and swelling for 10 days, no trauma FINDINGS: No acute fracture or dislocation is identified. Bony alignment is maintained. Small tricompartmental calcifications are visualized. [id number] tricompartmental degenerative changes with joint space narrowing [...] 02/03/2023 8:59:10 AM Ordering Provider: HUGH Shah [facility] ([place]) .Auto Diffon 12-21-2022 Basophil, Absolute 0.0 10 3/mcL Normal 0.0-0.2 [facility] ([place]) Comment on above: Performed By: #### G FR, ADIFF, LIPID, CBC, TSH, VIDH, ANEU, CMP, PSA, A1C #### [address] [address] Basophils/100 WBC (Bld) 0.6 % Normal 0.0-2.5 [facility] ([place]) Comment on above: Performed By: #### G FR, ADIFF, LIPID, CBC, TSH, VIDH, ANEU, CMP, PSA, A1C #### [address] [address] Eosinophil, Absolute 0.4 10 3/mcL Normal 0.0-0.4 [facility] ([place]) Comment on above: Performed By: #### G FR, ADIFF, LIPID, CBC, TSH, VIDH, ANEU, CMP, PSA, A1C #### [address] [address] Eosinophils/100 WBC (Bld) 7.6 % High 0.0-7.0 [facility] ([place]) Comment on above: Performed By: #### G FR, ADIFF, LIPID, CBC, TSH, VIDH, ANEU, CMP, PSA, A1C #### [address] [address] Lymphocyte, Absolute 1.6 10 3/mcL Normal 0.8-3.9 [facility] ([place]) Comment on above: Performed By: #### G FR, ADIFF, LIPID, CBC, TSH, VIDH, ANEU, CMP, PSA, A1C #### [address] [address] Lymphocytes/100 WBC (Bld) 26.7 % Normal 10.0-50.0 [facility] ([place]) Comment on above: Performed By: #### G FR, ADIFF, LIPID, CBC, TSH, VIDH, ANEU, CMP, PSA, A1C #### [address] [address] Monocyte, Absolute 0.5 10 3/mcL Normal 0.2-1.0 [facility] ([place]) Comment on above: Performed By: #### G FR, ADIFF, LIPID, CBC, TSH, VIDH, ANEU, CMP, PSA, A1C #### [address] [address] Monocytes/100 WBC (Bld) 8.4 % Normal 1.7-13.0 [facility] ([place]) Comment on above: Performed By: #### G FR, ADIFF, LIPID, CBC, TSH, VIDH, ANEU, CMP, PSA, A1C #### [address] [address] Neutrophils/100 WBC (Bld) 56.7 % Normal 37.0-80.0 [facility] ([place]) Comment on above: Performed By: #### G FR, ADIFF, LIPID, CBC, TSH, VIDH, ANEU, CMP, PSA, A1C #### [address] [address] .GFRon 12-21-2022 GFR Non- 53 ml/min/1.73sqm Normal [facility] ([place]) Comment on above: Result Comment: GFR Population [...] TSH, VIDH, ANEU, CMP, PSA, A1C #### [address] [address] GFR 64 ml/min/1.73sqm Normal [facility] ([place]) Comment on above: Result Comment: GFR Population [...] TSH, VIDH, ANEU, CMP, PSA, A1C #### [address] [address] .NEUABSon 12-21-2022 Neutrophil, Absolute 3.3 10 3/mcL Normal 2.9-6.2 [facility] ([place]) Comment on above: Performed By: #### G FR, ADIFF, LIPID, CBC, TSH, VIDH, ANEU, CMP, PSA, A1C #### [place] [address] A1Con 12-21-2022 HbA1c (Bld) [Mass fraction] 10.1 % High 4.3-6.4 [facility] ([place]) Comment on above: Performed By: #### G FR, ADIFF, LIPID, CBC, TSH, VIDH, ANEU, CMP, PSA, A1C #### [address] [address] CBCon 12-21-2022 Erythrocyte distribution width (RBC) [Ratio] 12.6 % Normal 11.5-14.5 [facility] ([place]) Comment on above: Performed By: #### G FR, ADIFF, LIPID, CBC, TSH, VIDH, ANEU, CMP, PSA, A1C #### [address] [address] Hematocrit (Bld) [Volume fraction] 47.6 % Normal 42.0-52.0 [facility] ([place]) Comment on above: Performed By: #### G FR, ADIFF, LIPID, CBC, TSH, VIDH, ANEU, CMP, PSA, A1C #### [address] [place] [address] Hgb 16.3 G/dL Normal 14.0-18.0 [facility] ([place]) Comment on above: Performed By: #### G FR, ADIFF, LIPID, CBC, TSH, VIDH, ANEU, CMP, PSA, A1C #### [place] [id number] MCH (RBC) [Entitic mass] 31.6 pg High 27.0-31.2 [facility] ([place]) Comment on above: Performed By: #### G FR, ADIFF, LIPID, CBC, TSH, VIDH, ANEU, CMP, PSA, A1C #### [place] [address] MCHC 34.3 G/dL Normal 31.8-35.4 [facility] ([place]) Comment on above: Performed By: #### G FR, ADIFF, LIPID, CBC, TSH, VIDH, ANEU, CMP, PSA, A1C #### [place] [address] MCV (RBC) [Entitic vol] 92.2 fL Normal 80.0-94.0 [facility] ([place]) Comment on above: Performed By: #### G FR, ADIFF, LIPID, CBC, TSH, VIDH, ANEU, CMP, PSA, A1C #### [place] [address] Platelet 177 10 3/mcL Normal 130-400 [facility] ([place]) Comment on above: Performed By: #### G FR, ADIFF, LIPID, CBC, TSH, VIDH, ANEU, CMP, PSA, A1C #### [place] [id number] Platelet mean volume (Bld) [Entitic vol] 9.8 fL Normal 7.4-10.4 [facility] ([place]) Comment on above: Performed By: #### G FR, ADIFF, LIPID, CBC, TSH, VIDH, ANEU, CMP, PSA, A1C #### [place] [address] RBC 5.16 10 6/mcL Normal 4.04-6.13 [facility] ([place]) Comment on above: Performed By: #### G FR, ADIFF, LIPID, CBC, TSH, VIDH, ANEU, CMP, PSA, A1C #### [address] [address] WBC 5.8 10 3/mcL Normal 4.6-10.8 [facility] ([place]) Comment on above: Performed By: #### G FR, ADIFF, LIPID, CBC, TSH, VIDH, ANEU, CMP, PSA, A1C #### [address] [address] CMPon 12-21-2022 Albumin Level 3.9 G/dL Normal 3.4-4.8 [facility] ([place]) Comment on above: Performed By: #### G FR, ADIFF, LIPID, CBC, TSH, VIDH, ANEU, CMP, PSA, A1C #### [address] [address] Albumin/Globulin [Mass ratio] 1.3 {ratio} Normal 1.1-2.5 [facility] ([place]) Comment on above: Performed By: #### G FR, ADIFF, LIPID, CBC, TSH, VIDH, ANEU, CMP, PSA, A1C #### [address] [address] ALP [Catalytic activity/Vol] 36 U/L Low 40-135 [facility] ([place]) Comment on above: Performed By: #### G FR, ADIFF, LIPID, CBC, TSH, VIDH, ANEU, CMP, PSA, A1C #### [address] [address] ALT [Catalytic activity/Vol] 20 U/L Normal 16-63 [facility] ([place]) Comment on above: Performed By: #### G FR, ADIFF, LIPID, CBC, TSH, VIDH, ANEU, CMP, PSA, A1C #### [address] [address] AST [Catalytic activity/Vol] 12 U/L Normal 10-40 [facility] ([place]) Comment on above: Performed By: #### G FR, ADIFF, LIPID, CBC, TSH, VIDH, ANEU, CMP, PSA, A1C #### [address] [address] Bili Total 0.7 mg/dL Normal 0.2-1.0 [facility] ([place]) Comment on above: Result Comment: Use of this assay is not recommended for patients undergoing treatment with eltrombopag due to the potential for falsely elevated results. Performed By: #### G FR, ADIFF, LIPID, CBC, TSH, VIDH, ANEU, CMP, PSA, A1C #### [address] [address] BUN/Creatinine Ratio 30 ratio High 7-27 [facility] ([place]) Comment on above: Performed By: #### G FR, ADIFF, LIPID, CBC, TSH, VIDH, ANEU, CMP, PSA, A1C #### [address] [address] Calcium [Mass/Vol] 9.5 mg/dL Normal 8.4-10.2 [facility] ([place]) Comment on above: Performed By: #### G FR, ADIFF, LIPID, CBC, TSH, VIDH, ANEU, CMP, PSA, A1C #### [address] [address] Chloride [Moles/Vol] 101 mmol/L Normal 98-107 [facility] ([place]) Comment on above: Performed By: #### G FR, ADIFF, LIPID, CBC, TSH, VIDH, ANEU, CMP, PSA, A1C #### [address] [address] CO2 [Moles/Vol] 31 mmol/L Normal 23-31 [facility] ([place]) Comment on above: Performed By: #### G FR, ADIFF, LIPID, CBC, TSH, VIDH, ANEU, CMP, PSA, A1C #### [address] [address] Creatinine [Mass/Vol] 1.33 mg/dL High 0.70-1.30 [facility] ([place]) Comment on above: Performed By: #### G FR, ADIFF, LIPID, CBC, TSH, VIDH, ANEU, CMP, PSA, A1C #### [address] [address] Electrolyte Balance 11.0 mEq/L Normal 4.0-15.0 [facility] ([place]) Comment on above: Performed By: #### G FR, ADIFF, LIPID, CBC, TSH, VIDH, ANEU, CMP, PSA, A1C #### [address] [address] Globulin 2.9 G/dL Normal [facility] ([place]) Comment on above: Performed By: #### G FR, ADIFF, LIPID, CBC, TSH, VIDH, ANEU, CMP, PSA, A1C #### [address] [address] Glucose [Mass/Vol] 259 mg/dL High 83-110 [facility] ([place]) Comment on above: Performed By: #### G FR, ADIFF, LIPID, CBC, TSH, VIDH, ANEU, CMP, PSA, A1C #### [address] [address] Potassium [Moles/Vol] 4.4 mmol/L Normal 3.5-5.1 [facility] ([place]) Comment on above: Performed By: #### G FR, ADIFF, LIPID, CBC, TSH, VIDH, ANEU, CMP, PSA, A1C #### [address] [address] Sodium [Moles/Vol] 143 mmol/L Normal 136-145 [facility] ([place]) Comment on above: Performed By: #### G FR, ADIFF, LIPID, CBC, TSH, VIDH, ANEU, CMP, PSA, A1C #### [address] [address] Total Protein 6.8 G/dL Normal 6.4-8.2 [facility] ([place]) Comment on above: Performed By: #### G FR, ADIFF, LIPID, CBC, TSH, VIDH, ANEU, CMP, PSA, A1C #### [address] [address] Urea nitrogen [Mass/Vol] 40 mg/dL High 7-18 [facility] ([place]) Comment on above: Performed By: #### G FR, ADIFF, LIPID, CBC, TSH, VIDH, ANEU, CMP, PSA, A1C #### [place] [id number] [place], [place] [address] LABORATORYOrdered By: SYSTEM SYSTEM on 12-21-2022 25-hydroxyvitamin [...] 12-21-2022 Cholesterol [Mass/Vol] 208 mg/dL High 0-200 [facility] ([place]) Comment on above: Result Comment: Chol esterol Reference Interval: Less than 200 Desirable 200-239 Borderline high risk 240 and above High risk Performed By: #### G FR, ADIFF, LIPID, CBC, TSH, VIDH, ANEU, CMP, PSA, A1C #### [place] [address] [place], [place] [address] Cholesterol in HDL [Mass/Vol] 39 mg/dL Low 40-60 [facility] ([place]) Comment on above: Performed By: #### G FR, ADIFF, LIPID, CBC, TSH, VIDH, ANEU, CMP, PSA, A1C #### [address] [address] Cholesterol in LDL [Mass/Vol] 132 mg/dL High 0-130 [facility] ([place]) Comment on above: Performed By: #### G FR, ADIFF, LIPID, CBC, TSH, VIDH, ANEU, CMP, PSA, A1C #### [address] [address] Triglyceride [Mass/Vol] 185 mg/dL High 0-150 [facility] ([place]) Comment on above: Result Comment: Trig lyceride Reference Interval: Less than 150 Normal 150-199 Borderline high risk 200-499 High risk 500 or higher Very high risk Performed By: #### G FR, ADIFF, LIPID, CBC, TSH, VIDH, ANEU, CMP, PSA, A1C #### [address] [address] PSAon 12-21-2022 Prostate Specific Antigen 4.34 ng/mL High 0.00-4.00 [facility] ([place]) Comment on above: Performed By: #### G FR, ADIFF, LIPID, CBC, TSH, VIDH, ANEU, CMP, PSA, A1C #### [address] [address] TSHon 12-21-2022 TSH Qn 1.62 m[IU]/L Normal 0.36-3.74 [facility] ([place]) Comment on above: Performed By: #### G FR, ADIFF, LIPID, CBC, TSH, VIDH, ANEU, CMP, PSA, A1C #### [address] [address] VIDHon 12-21-2022 Vit. D 25-Hydroxy 44.2 ng/mL Normal [facility] ([place]) Comment on above: Result Comment: Inte rpretive Values Based on Total 25(OH) Vitamin D: Deficient <20 ng/mL Insufficient 20 - <30 ng/mL Sufficient 30-100 ng/mL Performed By: #### G FR, ADIFF, LIPID, CBC, TSH, VIDH, ANEU, CMP, PSA, A1C #### [place] [address] [place] [address] LABORATORYOrdered By: SYSTEM SYSTEM on 02-01-2022 Albumin [...] Albumin DL <= 20 mg/L (U) [Mass/Vol] 16422 mcg/dL Invalid Interpretation Code AO ADM SS [...] [degF] Dr. Elana Hickman DO Work Phone: [facility] 06-18-2024 00:00-0400 Diastolic blood pressure 76 mm[Hg] Dr. Elana Hickman DO Work Phone: [facility] 06-18-2024 00:00-0400 Heart rate 75 /min Dr. Elana Hickman DO Work Phone: [facility] 06-18-2024 00:00-0400 Respiratory rate 18 /min Dr. Elana Hickman DO Work Phone: [facility] 06-18-2024 00:00-0400 SaO2% (BldA) [Mass fraction] 98 % Dr. Elana Hickman DO Work Phone: [facility] 06-18-2024 00:00-0400 Systolic blood pressure 120 mm[Hg] Dr. Elana Hickman DO Work Phone: [facility] 06-17-2024 20:44-0400 Body height 180.[address] Elana Hickman DO Work Phone: [facility] 06-17-2024 20:44-0400 Body mass index (BMI) [Ratio] 32.5 kg/m2 Dr. Elana Hickman DO Work Phone: [facility] 06-17-2024 20:44-0400 Body weight 105.[address] Elana Hickman DO Work Phone: [facility] 02-03-2023 08:03-0500 Body height 180.3 cm HUGH MOREL MD [facility] 02-03-2023 08:03-0500 Body temperature 98.42 [degF] HUGH MOREL MD [facility] 02-03-2023 08:03-0500 Body weight 95.5 kg HUGH MOREL MD [facility] 02-03-2023 08:03-0500 Diastolic Blood Pressure Non-Invasive 91 mm[Hg] HUGH MOREL MD [facility] 02-03-2023 08:03-0500 Heart rate 76 /min HUGH MOREL MD [facility] 02-03-2023 08:03-0500 Respiratory rate 20 /min HUGH MOREL MD [facility] 02-03-2023 08:03-0500 Systolic Blood Pressure Non-Invasive 165 mm[Hg] HUGH MOREL MD [facility] 10-28-2022 02:30-0400 Body height 180.34 cm [facility] 10-28-2022 02:30-0400 Body mass index (BMI) [Ratio] 31.1 kg/m2 [facility] 10-28-2022 02:30-0400 Body temperature 97.6 [degF] [facility] 10-28-2022 02:30-0400 Body weight 101.3 kg [facility] 10-28-2022 02:30-0400 Diastolic blood pressure 109 mm[Hg] [facility] 10-28-2022 02:30-0400 Heart rate 76 /min [facility] 10-28-2022 02:30-0400 Respiratory rate 20 /min [facility] 10-28-2022 02:30-0400 SaO2% (BldA) [Mass fraction] 95 % [facility] 10-28-2022 02:30-0400 Systolic blood pressure 188 mm[Hg] [facility] 10-25-2022 05:19-0400 Body temperature 98.24 [degF] DR ROBE KUO MD [facility] 10-25-2022 05:19-0400 Diastolic Blood Pressure Non-Invasive [address] ROBE KUO MD [facility] 10-25-2022 05:19-0400 Heart rate 83 /min DR ROBE KUO MD [facility] 10-25-2022 05:19-0400 Respiratory rate 18 /min DR ROBE KUO MD [facility] 10-25-2022 05:19-0400 Systolic Blood Pressure Non-Invasive [address] ROBE KUO MD [facility] Encounters Encounter Date Encounter Type Care Provider Facility Start: 09-10-2024 End: 09-10-[address] Jeffy Morgan DPM -Laboratory Specimen Work Phone: Start: 09-10-2024 End: 09-10-2024 ambulatory Jeffy Morgan Facility:[facility] Start: 06-17-2024 End: 06-18-2024 Emergency department patient visit Neville Swan Facility:[facility] Start: 06-11-2024 End: 06-11-[address] Jeffy Morgan DPMauro -Laboratory Specimen Work Phone: Start: 06-11-2024 End: 06-11-2024 ambulatory Elana Hickman Facility:[facility] Start: 05-21-2024 End: 05-21-2024 ambulatory ELANA HICKMAN DO Facility:[facility] Start: 05-21-2024 Encounter for genera l adult medical examination without abnormal findings ELANA HICKMAN DO [facility] Start: 04-03-2024 End: 04-12-[facility] Start: 03-13-2024 End: 03-15-2024 [facility] Start: 03-05-2024 End: 03-05-[address] AHMET LARSON DPM [facility] Start: 03-05-2024 End: 03-05-[address] AHMET LARSON DPM [facility] Start: 01-30-2024 End: 01-30-2024 Emergency department patient visit Elana Hickman Facility:[facility] Start: 11-02-2023 End: 11-06-2023 ambulatory ELANA VICK VICK Facility:[facility] Start: 11-02-2023 End: 11-06-2023 Outreach Lab ELANA HICKMAN DO [facility] Start: 02-03-2023 End: 02-03-2023 Emergency department patient visit HUGH MOREL MD Facility:[facility] Start: 02-03-2023 End: 02-03-2023 Emergency department patient visit HUGH MOREL MD [facility] Start: 12-21-2022 End: 12-22-2022 ambulatory ELANA HICKMAN DO Facility:[facility] Start: 12-21-2022 End: 12-21-2022 Patient encounter procedure ELANA HICKMAN DO [facility] Start: 11-12-2022 End: 12-06-2022 ambulatory MANUEL 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 Facility:[facility] Start: 10-28-2022 End: 10-28-2022 Emergency department patient visit [facility] Work Phone: Start: 10-25-2022 End: 10-25-2022 Emergency department patient visit ELANA HICKMAN DO Facility:[facility] Start: 10-25-2022 End: 10-25-2022 Emergency department patient visit DR ROBE KUO MD [facility] Start: 02-01-2022 End: 02-01-2022 Patient encounter procedure ELANA HICKMAN DO [facility] Start: 07-20-2021 End: 07-20-2021 Patient encounter procedure ELANA HICKMAN DO [facility] Start: 05-14-2021 End: 05-14-2021 Patient encounter procedure ELANA VICK VICK [facility] Procedures Date Procedure Procedure Detail Performing Clinician [...] Date Care Activity Detail Author Start: 06-18-2024 [facility] Patient Education [facility] Work Phone: Patient referral [facility] Work Phone: Immunizations Immunization Date Immunization Notes Care Provider Nery mckeon 02-28-2021 tetanus toxoid, redu milo diphtheria toxoid, and acellular pertussis vaccine, adsorbed ELANA VICK DO [facility] Payers Date Payer Category Payer Medicare [id number] 2023 Medicare [id number] 2023 Self-pay [id number] 2023 Unknown [id number] 2023 Unknown [id number] 2022 Unknown [id number] 2015 Private Health Insurance [id number] 1950 Unknown [id number] 27 1951 Unknown [id number] 2.16.840.1.711020.3.579.2.6 27 1951 Unknown [id number] 2.16.840.1.685862.3.579.2.6 27 1951 Unknown [id number] 2.16.840.1.005050.3.579.2.6 27 1951 Unknown [id number] 2.16.840.1.408288.3.579.2.6 27 1951 Unknown [id number] 2.16.840.1.685379.3.579.2.6 27 Private Health Insurance [facility] [id number] Unknown [id number] 2.16.840.1.320391.3.579.2.4 62 Unknown [id number] 2.16.840.1.415657.3.579.2.4 62 Unknown [id number] 2.16.840.1.196281.3.579.2.4 62 Unknown [id number] 2.16.840.1.171064.3.579.2.4 62 Unknown [id number] 2.16.840.1.436554.3.579.2.4 62 Unknown [id number] 2.16.840.1.638841.3.579.2.4 62 Social History Date Type Detail Facility Start: 11-12-2018 End: 06-17-2024 Tobacco smoking status Never smoked tobacco (finding) [facility] Start: 1950 Sex Assigned At Male A [facility] Start: 10-28-2022 Tobacco smoking stat [facility] Unknown if ever smoked [facility] Sexual Orientation [facility] Start: 08-08-2018 Sex Male (finding) [facility] Medical Equipment Procedure Code Equipment Code Equipment Origin al Text Equipment Identifier Dates See Instructions , # 100 strip, Refill #: 3 Total Refills: 3, USE 3 TIMES A DAY DIRECTED, [id number] Start: 12-06-2018 See Instructions , # 100 strip, Refill #: 3 Total Refills: 3, USE 3 TIMES A DAY DIRECTED, [id number] Start: 12-06-2018 See Instructions , 1 bottle of 100. Freestyle Lite. Testing BID. dx: e11.65, # 1 EA, 11 Refill(s), Pharmacy: [id number], 179, cm, 08/24/21 11:25:00 EDT, Height, 101.5 Start: 01-21-2022 See Instructions , 1 bottle of 100. Freestyle Lite. Testing BID. dx: e11.65, # 1 EA, 11 Refill(s), Pharmacy: [id number], 180.3, cm, 06/14/22 11:34:00 EDT, Height, 99.2, kg, 06/14/22 11:34:00 EDT, Dosing Weight Start: 09-29-2022 See Instructions , 1 bottle of 100. Freestyle Lite. Testing BID. dx: e11.65, # 1 EA, 11 Refill(s), [id number], 180.3, cm, 06/14/22 11:34:00 EDT, Height, 99.2, kg, 06/14/22 11:34:00 EDT, Dosing Weight Start: 09-29-2022 See Instructions , 1 bottle of 100. Freestyle Lite. Testing BID. dx: e11.65, # 1 EA, 11 Refill(s), [id number], 180.3, cm, 06/14/22 11:34:00 EDT, Height, 99.2, kg, 06/14/22 11:34:00 EDT, Dosing Weight Start: 09-29-2022 See Instructions , 1 bottle of 100. Freestyle Lite. Testing BID. dx: e11.65, # 1 EA, 11 Refill(s), Pharmacy: [facility], 177.5, cm, 05/23/23 11:39:00 EDT, Height, 104, kg, 05/23/23 11:39:00 EDT, Dosing Weight Start: 05-29-2023 See Instructions , Insulin Syringes 1cc 31G /16in - use ud with insulin Use [facility] [address]-82, # 100 EA, 3 Refill(s), Pharmacy: [facility], 177.5, cm, 05/23/23 11:39:00 EDT, Height, 104, kg, 05/23/23 11:39:00 EDT, Dosing Weight Start: 10-31-2023 Functional Status Date Assessment Result Facility 02-03-2023 Functional Status Assistive Leah ce None, Wheelchair [facility] 02-03-2023 Functional Status Repositions self [facility] Mental Status Date Assessment Result Facility 02-03-2023 Mental Status Orientation Oriented x 4 [facility] 02-03-2023 Mental Status [facility] 10-25-2022 Mental Status Oriented x 4 [facility] Clinical Notes 10-25-2022 to 03-05-2024 Note Date & Type Note Facility 03-05-2024 Note Exam Date Time Procedure Performing Provider Status 03/05/24 11:56 AM VL Arterial Dopplers Both Legs Rest/PVR- MCKENNA PHILLIP MD; Auth (Verified) [facility]12-22-2023 Hospital Discharge instructions Patient Education 02/03/2023 09:12:23 Knee Pain of Uncertain Cause Knee Pain with Uncertain Cause There are several common causes for knee pain. These can include: A sprain of the ligaments that support the joint An injury to the cartilage lining of the joint Arthritis from fqux-eqb-cpco or inflammation There are other causes as [...] heat. If you have to wear a ybta-lrh-ppne knee brace, you can open it to apply the ice pack, or heat, directly to the knee. Never put ice directly on the skin. Always wrap the ice in atowel or other type of cloth. You may use izgp-czz-kuuhqfh pain medicine to control pain, unless another [...] full work duties. If you have a nbxg-loz-zhng knee brace, you can remove it to [...] as directed by your healthcare provider [place] [phone] [employer]. [address] [place] [address]. All rights reserved. This information is not intended as a substitute for professional medical care. Always follow yourhealthcare professional's instructions. Follow Up Care 02/03/2023 07:52:23 With:DO ELANA MONTANA DO Address: [address] [place] [address] [address] [place] [address] When:5 to 7 days With:ELANA HICKAMN DO Address: [address] [facility] [place], [place] [phone] When:2-4 days [facility] 12-22-2023 Note Discharge Instructions Thank you for allowing [facility] to assist you with your healthcare needs. 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 This form of tramadol [...] may report side effects to FDA at 9-841-IBQ-7114. What other drugs will affect tramadol? You [...] drugs may affect tramadol, including prescription and fkch-nmo-bsjacma medicines, vitamins, and herbal products. Not all [...] may affect tramadol. This includes prescription and fzdv-dkb-baqaxgy medicines, vitamins, and herbal products. Not all [...] to ensure that the information provided by [employer]. ('[employer]') is accurate, up-to-date, and complete, but no guarantee is made to that effect. Drug information contained herein may be time sensitive. [employer] information has been compiled for use by healthcare practitioners and consumers in the [place] and therefore [employer] does not warrant that uses outside of the [place] are appropriate, unless specifically indicated otherwise. [employer] drug information does not endorse drugs, diagnose patients or recommend therapy. [employer] drug information isan informational resource designed to [...] effective or appropriate for any given patient. [employer] does not assume any responsibility for any aspect of healthcare administered with the aid of information [employer] provides. The information contained herein is not intended to cover all possible uses, directions, precautions, warnings, drug interactions, allergic reactions, or adverse effects. If you have questions about the drugs you are taking, check with your doctor, nurse or pharmacist. Copyright 3673-8418 [employer]. Version: 24.. Revision Date: 09/16/2022. Education Materials Knee Pain with Uncertain Cause There are several common causes for knee pain. These can include: A sprain of the ligaments that support the joint An injury to the cartilage lining of the joint Arthritis from rfje-kpx-lkso or inflammation There are other causes as [...] heat. If you have to wear a klyj-wei-biag knee brace, you can open it to apply the ice pack, or heat, directly to the knee. Never put ice directly on the skin. Always wrap the ice in atowel or other type of cloth. You may use xlzd-xmq-jevxhcj pain medicine to control pain, unless another [...] full work duties. If you have a ebva-gbh-ndtb knee brace, you can remove it to [...] as directed by your healthcare provider Tara [phone] [employer]. [address] [place] [address]. All rights reserved. This information is not intended as a substitute for professional medical care. Always follow yourhealthcare professional's instructions. Additional Information VACCINATE! IT SAVES LIVES! Members of the community who have not yet received the COVID-19 vaccine and would like to receive it can visit one of [facility] vaccine clinics. There are many vaccine clinic locations within the [facility]. For locations and available times, please visit www.gettheshot.coronavirus.[place].gov/. It is important to note that some COVID mobile vaccine clinics are held outdoors and may be canceled in rainy or stormy conditions. To learn more about pediatric vaccinations (ages 5-11), we invite you to visit the [facility] webpage. https://www.[facility].org/pages/2340-Tyzok-Ktkszhkulvk-Zqmgbifevp-Wiikf-Cvc stions.htmlTo learn more about the COVID-19 vaccine, we invite you to visit the CDC website for a list of frequently asked questions. https://www.cdc.gov/coronavirus/2019-ncov/vaccines/faq.html [employer] Patient Portal Access Instructions: Stay connected with your healthcare team and access your personal medical information anytime with the [employer] Patient Portal. If you would like a full copy of your medical records please contact the [facility] Medical Records Department Monday through Monday between 8a.m. and 4:30p.m. Please follow the directions below to access the portal: 1.Access the email account you provided upon registration to the [facility].2.Look for an invitation email from [facility].3.Open the email and access the invitation link: Accept Invitation to [employer]4.Fill in the required mckinley to create your account. Sign into [email or web address] with your username and password that you [...] you will allow to register on the [employer] Patient Portal for access to your information. You can also access the [employer] Patient Portal on the [employer] tracey. Simply click on Health Records under Lua and then click on the [employer] logo. HOW TO SAFELY DISPOSE OF PRESCRIPTION [...] Call your local pharmacy or go to http://[employer]/[email or web address] to find one close to you.3.Make use of household items: Use cat litter or old coffee grounds to dispose medications if other options arenot available. Mix your drugs with these household products, seal them in an airtight container andthrow it into the garbage. Call [facility]: [phone] to be sure your drugs can be [...] aware that I should contact my doctor. Patient/Patrol Lady Signature: Date/Time: Relationship to Patient: Witness Name/Signature: Date/Time: [facility]12-22-2023 Note* Exam Date Time Procedure Performing Provider Status 02/03/23 8:39 AM VL Venous US/Doppler One Leg (DVT) AO Auth (Verified) [facility] 12-22-2023 Note ORIGINAL EXAMINATION: THREE XRAY VIEWS OF THE RIGHT KNEE02/03/2023 8:48 am COMPARISON: None available HISTORY: ORDERING SYSTEM PROVIDED HISTORY: Reason for Exam: Right knee pain and swelling for 10 days, no trauma FINDINGS: No acute fracture or dislocation is identified. Bony alignment is maintained. Small tricompartmental calcifications are visualized. Grpo-tz-vtvqjmba tricompartmental degenerative changes with joint space narrowing [...] Date: 02/03/2023 8:59:10 AM [facility]ing [facility] Discharge instructions Patient Education 10/25/2022 05:35:12 [...] pain can be reduced in this way. [phone] [employer]. [address] [place] [address]. All rights reserved. This information is not intended as a substitute for professional medical care. Always follow yourhealthcare professional's instructions. 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 [phone] [employer]. [address] [place] [address], [place] [address]. All rights reserved. This information is not intended as a substitute for professional medical care. Always follow yourhealthcare professional's instructions. Additional Information VACCINATE! IT SAVES LIVES! Members of the community who have not yet received the COVID-19 vaccine and would like to receive it can visit one of [facility] vaccine clinics. There are many vaccine clinic locations within the [facility]. For locations and available times, please visit www.gettheshot.coronavirus.[place].gov/. It is important to note that some COVID mobile vaccine clinics are held outdoors and may be canceled in rainy or stormy conditions. To learn more about pediatric vaccinations (ages 5-11), we invite you to visit the [facility] webpage. https://www.[facility].org/pages/9923-Jymeh-Kvgslojtdej-Lybznbvesm-Vbztl-Vdp stions.htmlTo learn more about the COVID-19 vaccine, we invite you to visit the CDC website for a list of frequently asked questions. https://www.cdc.gov/coronavirus/2019-ncov/vaccines/faq.html [facility] [employer] Patient Portal Access Instructions: Stay connected with your healthcare team and access your personal medical information anytime with the [facility] [employer] Patient Portal. If you would like a full copy of your medical records please contact the [facility] Medical Records Department Monday through Monday between 8a.m. and 4:30p.m. Please follow the directions below to access the portal: 1.Access the email account you provided upon registration to the [facility].2.Look for an invitation email from [facility].3.Open the email and access the invitation link: Accept Invitation to [employer]4.Fill in the required mckinley to create your account. Sign into [email or web address] with your username and password that you [...] you will allow to register on the [employer] Patient Portal for access to your information. You can also access the [employer] Patient Portal on the [employer]. Simply click on Health Records under Lua and then click on the [employer] logo. [...] Call your local pharmacy or go to http://[employer]/[email or web address] to find one close to you.3.Make use of household items: Use cat litter or old coffee grounds to dispose medications if other options arenot available. Mix your drugs with these household products, seal them in an airtight container andthrow it into the garbage. Call [facility]: [phone] to be sure your drugs can be [...] aware that I should contact my doctor. Patient/Patrol Lady Signature: Date/Time: Relationship to Patient: Witness Name/Signature: Date[facility]Time: [facility] Future Appointments Appointment Date:07/20/2021 09:00:00 AM Scheduled Provider:ELANA HICKMAN DO Location:[facility] Appointment Type:PC OV Future Scheduled Tests Laboratory* Thyroid Stimulating Hormone 09/14/20 * Complete Blood Count 09/14/20 * Lipid Profile 09/14/20 Radiology* XR Spine Lumbar W/Obliques 4 Views 12/15/20 [facility] Evaluation + Plan note Future Appointments Appointment Date:08/03/2021 11:30:00 AM Scheduled Provider:ELANA HICKMAN DO Location:[facility] Appointment Type:PC OV Future Scheduled Tests Laboratory* Thyroid Stimulating Hormone 09/14/20 * Complete Blood Count 09/14/20 * Lipid Profile 09/14/20 Radiology* BD Bone Density DEXA Axial Skeleton 07/20/21 * XR Spine Lumbar W/Obliques 4 Views 12/15/20 [facility] Evaluation + Plan note Future Appointments Appointment Date:06/14/2022 11:30:00 AM Scheduled Provider:ELANA HICKMAN DO Location:[facility] Appointment Type:PC OV Future Scheduled Tests Radiology* BD Bone Density DEXA Axial Skeleton 07/20/21 [facility] Evaluation + Plan note Future Appointments Appointment Date:11/22/2022 11:30:00 AM Scheduled Provider:ELANA HICKMAN DO Location:[facility] Appointment Type: Wellness Annual Future Scheduled Tests Laboratory* Thyroid Stimulating Hormone 06/14/22 * A1C Hemoglobin 06/14/22 * Complete Blood Count 06/14/22 * Lipid Profile 06/14/22 * Albumin/Creatinine Ratio, Random Urine 06/14/22 * Vitamin D Level 06/14/22 * Complete Metabolic Panel 06/14/22 [facility] Evaluation + Plan note Future Appointments Appointment Date:05/23/2023 11:30:00 AM Scheduled Provider:ELANA HICKMAN DO Location:[facility] Appointment Type:PC OV Future Scheduled Tests Laboratory* Thyroid Stimulating Hormone 06/14/22 * A1C Hemoglobin 06/14/22 * Complete Blood Count 06/14/22 * Lipid Profile 06/14/22 * Albumin/Creatinine Ratio, Random Urine 06/14/22 * Albumin/Creatinine Ratio, Random Urine 11/22/22 * Vitamin D Level 06/14/22 * Complete Metabolic Panel 06/14/22 Radiology* BD Bone Density DEXA Axial Skeleton 11/22/22 [facility] evaluation + Plan note Future Appointments Appointment Date:11/21/2023 09:30:00 AM Scheduled Provider:ELANA HICKMAN DO Location:[facility] Appointment Type:PC OV Future Scheduled Tests Laboratory* Albumin/Creatinine Ratio, Random Urine 05/23/23 Radiology* BD Bone Density DEXA Axial Skeleton 11/22/22 [facility] Evaluation + Plan note Future Appointments Appointment Date:05/21/2024 09:30:00 AM Scheduled Provider:ELANA HICKMAN DO Location:[facility] Appointment Type:PC OV Future Scheduled Tests Laboratory* Vitamin B1 (Thiamine), Blood 11/21/23 * Folate Level 11/21/23 * Prostate Specific Antigen 11/21/23 * Thyroid Stimulating Hormone 11/21/23 * Free T4 11/21/23 * Vitamin B12 Level 11/21/23 * Albumin/Creatinine Ratio, Random Urine 05/23/23 [facility] Evaluation noteNo assessment information available [facility] Work Phone: Hospital course Narrative No data available for this section [facility] Hospital Discharge instructions No data available for this section [facility] Progress note No data available for this section [facility] Reason for referral (narrative)No reason for referral information [facility]WWyandot [facility] Work Phone: Chief Complaint and Reason for Visit Chief Complaint R Shoulder Pain Chief Complaint Admit Date FALL June 17, 2024 8:44pm Advance Directives Advance Directive Response Recorded Date/ Time Living Will No October 28, 2022 2:33am Power of Feller Buncher Operator No October 2:33am Advance Directive Response Recorded Date/ Time Do you have a Healthcare Power of Feller Buncher Operator? Yes June 17, 2024 9:54pm Summary Purpose [...] and content) Care Team Personnel Name: Timmy Dicer Operator Lisa PT Position: P3 Scheduling - Greenhouse Manager Advanced Member Role: Other Name: ELANA HICKMAN DO Position: P4 Physician - Primary Care Member Role: Primary Care Physician Address: Address: [address] [place] [address] Care Team Related Persons Name: TAMMI TORREZ Address: Home [address] [place], [place] [phone] [place] Address: [facility] [address] [place], [place] [phone] Goals (unrecognized section and content) Goals may be documented in a n alternate section (unrecognized sect ion and content) No Status Records FoundNo Status Records FoundNo Status Records Found INFORMATION SOURCE (unrecogn ized section and content) DATE CREATED AUTHOR 02/11/2023 [facility] ([place]) DATE CREATED AUTHOR AUTHOR'S ORGANIZ ATION 05/26/2024 [facility] DATE CREATED AUTHOR AUTHOR'S ORGANIZ ATION 09/12/2024 [facility] FOR RECORDS PERTAINING TO PATIENTS WHO ARE [...] BE BASED ON THE PRIMARY CLINICAL RECORDS. [facility]. provides no warranty or guarantee of the accuracy or completeness of information in this document.
[2024-10-05 15:38] VITALS: BMI 33.4
[2024-10-05 15:46] VITALS: O2SAT 100
[2024-10-05 15:59] VITALS: BP 136/71; PULSE 71; RESP 18; TEMP 36.7; O2SAT 96
--- NOTE | 2024-10-05 16:09 | PCM.RX.CS ---
Consult Antibiotic Management Pharmacy has been consulted to manage selected antibiotic: Vancomycin Type of Intervention Type of Consult: New start Suspected Infection Suspected Infection: Skin/Soft tissue Prior Doses of Antibiotics Prior Doses of Antibiotics Received/Current Regimen: received vanc 1750mg IV x1 in E.R. starting at 12:28 today Labs Labs: Sodium 137 mmol/L (133-145) 10/05/24 12:30 Potassium 3.7 mmol/L (3.3-5.1) 10/05/24 12:30 Chloride 96 mmol/L (98-108) L 10/05/24 12:30 Carbon Dioxide 25.8 mmol/L (21.0-32.0) 10/05/24 12:30 Anion Gap 16 (5-15) H 10/05/24 12:30 BUN 36 mg/dL (4-19) H 10/05/24 12:30 Creatinine 1.57 mg/dL (0.70-1.20) H 10/05/24 12:30 Est GFR (MDRD) Non-Af 46 (>60) L 10/05/24 12:30 BUN/Creatinine Ratio 22.8 RATIO (10-20) H 10/05/24 12:30 Glucose 235 mg/dL (70-99) H 10/05/24 12:30 Dosing Weight Weight used for dosin.8 kg Estimated Creatinine Clearance Estimated Creatinine Clearance: 54 ml/min Goal Trough Goal Trough: 15-20 mcg/mL Pharmacy Plan for Drug Dosing Pharmacy Plan for Drug Dosing: Starting 12 hours after the E.R. dose, continue with 1000mg IV q12h per [facility] dosing protocol. Check a trough before the 4th overall dose. Pharmacy Service will continue to monitor and adjust dosing as required. Follow-Up Labs Follow-Up Labs: Trough: Vancomycin Date/Time Labs Ordered Labs to be done on [date and time ordered]: 10/06/24 23:30
[2024-10-05] MEDS: Lactated Ringers 1,000 ML 500 ML IV (17:17)
[2024-10-05 19:51] VITALS: BP 138/87; PULSE 64; RESP 20; TEMP 36.9; O2SAT 97
[2024-10-05] MEDS: Insulin Glargine-YFGN 100 UNIT/ML Pen 15 UNIT SC (20:18)
[2024-10-05] MEDS: 0.9% Saline Lock 10 ML Syringe IV (20:19)
[2024-10-05] MEDS: 0.9% Normal Saline (250mL Bag) 250 ML 15 ML IV (20:47)
[2024-10-06] MEDS: Vancomycin HCl 1,000 MG in 0.9% Normal Saline (250mL Bag) 250 ML 250 MG IV ×2 (00:06→12:11)
[2024-10-06 00:11] VITALS: BP 125/76; PULSE 64; RESP 20; TEMP 36.7; O2SAT 94
[2024-10-06 05:19] VITALS: BP 131/86; PULSE 55; RESP 18; TEMP 36.8; O2SAT 95
[2024-10-06] MEDS: 0.9% Saline Lock 10 ML Syringe IV ×3 (05:25→14:12)
[2024-10-06 06:01] LABS: Hematocrit 46.7 % (40-54); Hemoglobin 14.9 g/dL (13.0-16.5); Mean Corp Hgb Conc 31.9 g/dL (32-36); Mean Corpuscular Volume 96.5 fL (80-94); Mean Platelet Vol. 11.6 fl (6.2-12.0); Platelet Count 166 K/mm3 (150-450); RBC Distribution Width CV 12.8 % (11.6-14.6); RBC Distribution Width SD 46.0 fl (35.1-43.9); Red Blood Count 4.84 M/mm3 (4.6-6.2); White Blood Count 9.8 K/mm3 (4.4-11.0)
[2024-10-06 06:58] LABS: Anion Gap 16 (5-15); BUN 29 mg/dL (4-19); BUN/Creat Ratio 24.6 RATIO (10-20); Calcium,Total 8.9 mg/dL (7.6-11.0); Carbon Dioxide 20.6 mmol/L (21.0-32.0); Chloride 102 mmol/L (98-108); Estimated Creatinine Clearance 70.54 ml/min (50-250); Glucose 54 mg/dL (70-99); Potassium 4.0 mmol/L (3.3-5.1)
[2024-10-06 07:28] VITALS: O2SAT 95
[2024-10-06 08:54] VITALS: BP 134/64; PULSE 73; RESP 20; TEMP 36.5; O2SAT 97
[2024-10-06] MEDS: Cholecalciferol (VIT D3) 25 MCG TABLET (1,000 UNITS) 50 MCG PO (08:59)
--- NOTE | 2024-10-06 11:07 | PCM.PROGNOTE ---
Subjective Subjective Patient seen and examined with his nurse by his bedside. He was admitted with a complaint of right foot and ankle pain as well as swelling and generalized weakness. He says the symptoms are getting better today. He denies any pain in his right lower extremity. He does still have some redness. He also complains of LUE shoulder pain. Review systems otherwise negative. Objective Data Objective Data Vital Signs: Vital Signs Temp Pulse Resp BP Pulse Ox O2 Del Method 97.7 F L 73 20 H 134/64 H 97 Room Air 10/06/24 08:54 10/06/24 08:54 10/06/24 08:54 10/06/24 08:54 10/06/24 08:54 10/06/24 08:54 Oxygen Delivery Method Room Air Weight: 239 lb 12.8 oz Body Mass Index (BMI) 33.4 Intake & Output: Intake and Output for Last 24 Hours 10/04/24 10/05/24 10/06/24 23:59 23:59 23:59 Intake Total 1535 / 1535 670 / 670 Output Total 200 / 200 Balance 1535 / 1535 470 / 470 Lab / Micro Data 10/06/24 04:45 10/06/24 04:45 Labs: Laboratory Results - last 24 hr 10/05/24 12:30: WBC 10.0, RBC 4.97, Hgb 15.5, Hct 45.3, MCV 91.1, MCH 31.2, MCHC 34.2, RDW Std Deviation 42.4, RDW Coeff of Brant 12.7, Plt Count 170, MPV 11.2, Immature Gran % (Auto) 0.600, Neut % (Auto) 81.8 H, Lymph % (Auto) 7.1 L, [place] % (Auto) 9.6, Eos % (Auto) 0.7, Baso % (Auto) 0.2, Absolute Neuts (auto) 8.1 H, Absolute Lymphs (auto) 0.71 L, Nucleated RBC % 0, ESR 37 H, Sodium 137, Potassium 3.7, Chloride 96 L, Carbon Dioxide 25.8, Anion Gap 16 H, BUN 36 H, Creatinine 1.57 H, Estim Creat Clear Calc 53.99, Est GFR (MDRD) Non-Af 46 L, BUN/Creatinine Ratio 22.8 H, Glucose 235 H, Hemoglobin A1c 8.7 H, Calcium 9.4, C-React Prot Ext Range 251.00 H 10/05/24 20:16: POC Glucose 180 H 10/06/24 04:45: WBC 9.8, RBC 4.84, Hgb 14.9, Hct 46.7, MCV 96.5 H D, MCH 30.8, MCHC 31.9 L D, RDW Std Deviation 46.0 H, RDW Coeff of Brant 12.8, Plt Count 166, MPV 11.6, Sodium 138, Potassium 4.0, Chloride 102, Carbon Dioxide 20.6 L, Anion Gap 16 H, BUN 29 H, Creatinine 1.17, Estim Creat Clear Calc 70.54, Est GFR (MDRD) Non-Af 66, BUN/Creatinine Ratio 24.6 H, Glucose 54 L, Calcium 8.9 10/06/24 07:01: POC Glucose 73 L Radiography Diagnostic Testing: Radiology Impression Ankle X-Ray 10/05/24 12:01 IMPRESSION: No acute osseous abnormalities. Reading Location: [facility] Foot X-Ray 10/05/24 12:01 IMPRESSION: No acute osseous abnormalities. Reading Location: [facility] Physical Exam Const alert, oriented x3 and no apparent distress Constitutional Narrative: frail, weak. General Appearance: cooperative HEENT normocephalic, head/scalp atraumatic and moist oral mucous membranes Eyes EOMs intact bilaterally Neck supple and no JVD Lymph Lymphatic: no lymphedema noted Resp Resp Narrative: mildly diminished breath sounds bibasally, no wheezes or crackles.On room air. Cardio regular rate, regular rhythm, S1 normal heart sound, S2 normal heart sound and no murmurs GI normal to inspection, nondistended, normoactive bowel sounds, soft to palpation, non-tender and non-distended Extremity Extremity Narrative: RLE has mild redness and differential warmth extending from ankle to midshin. Has a chronic left 3rd toe ulcer. Skin Skin Narrative: as under extremities. Neuro CN's II-XII intact bilaterally and no focal motor deficits Motor Exam: general weakness Psych thought process normal, cooperative and affect normal Appearance: appropriate Assessment & Plan Assessment/Plan (1) Cellulitis of leg, right: PLAN: Plan #RLE cellulitis failed outptient treatment. Has chronic right third toe wound and debridement recently. Follows with podiatry for this He had debridement done in the office of podiatry on 10/01/2024 and subsequently developed a right foot redness and swelling antibiotics. CRP is elevated at 251 and ESR was 37. X-ray of the right foot and ankle were unremarkable with minimal concern for osteomyelitis. On IV vancomycin. Redness has started improving. #Debility and weakness in the setting of Parkinson's disease On Sinemet and propranolol. PT OT on board. Fall precautions. He lives at home with . Disposition will be based on therapy evaluation. #Anion gap metabolic acidosis: Bicarb is 20.6. Anion gap is 16 and was 16 yesterday 2. Etiology is not very clear as creatinine is down to 1.17 today from 1.57 yesterday. #CKD stage IIIa: Creatinine at baseline. Will monitor. #Type 2 diabetes mellitus with neuropathy: Empagliflozin and glimepiride on hold. On Lantus 15 units bid. Insulin sliding scale. Accu-Cheks ACHS. #Hypertension: On lisinopril and hydrochlorothiazide. IV hydralazine as needed #Hyperlipidemia: On statin #GERD: On PPI #BPH with obstructive symptoms: On Flomax DVT prophylaxis: Lovenox Charges/Coding Visit Charges Inpatient E&M: 60869 Subs Hosp L2
--- NOTE | 2024-10-06 11:45 | RAD_ITS ---
PROCEDURE: SHOULDER MIN 2 VIEWS 10/06/2024 REASON FOR EXAM: PAIN TECHNIQUE: SHOULDER MIN 2 VIEWS Laterality: Left FINDINGS: Four views of the left shoulder demonstrate no fracture or dislocation RAD/Shoulder min 2 Views IMPRESSION: Negative left shoulder Reading Location: [facility]
[2024-10-06] MEDS: Insulin Glargine-YFGN 100 UNIT/ML Pen 15 UNIT SC ×2 (12:09→22:55)
[2024-10-06 13:58] VITALS: BP 156/70; PULSE 73; RESP 16; TEMP 36.5; O2SAT 98
[2024-10-06 22:49] VITALS: BP 157/86; PULSE 89; RESP 18; TEMP 36.8; O2SAT 99
[2024-10-07 00:43] LABS: Vancomycin, Trough Level 12.0 ug/mL (5.0-15.0)
--- NOTE | 2024-10-07 01:01 | PCM.RX.CS ---
Consult Antibiotic Management Pharmacy has been consulted to manage selected antibiotic: Vancomycin Type of Intervention Type of Consult: Follow-up Labs Labs: Sodium 138 mmol/L (133-145) 10/06/24 04:45 Potassium 4.0 mmol/L (3.3-5.1) 10/06/24 04:45 Chloride 102 mmol/L (98-108) 10/06/24 04:45 Carbon Dioxide 20.6 mmol/L (21.0-32.0) L 10/06/24 04:45 Anion Gap 16 (5-15) H 10/06/24 04:45 BUN 29 mg/dL (4-19) H 10/06/24 04:45 Creatinine 1.17 mg/dL (0.70-1.20) 10/06/24 04:45 Est GFR (MDRD) Non-Af 66 (>60) 10/06/24 04:45 BUN/Creatinine Ratio 24.6 RATIO (10-20) H 10/06/24 04:45 Glucose 54 mg/dL (70-99) L 10/06/24 04:45 Vancomycin Trough 12.0 ug/mL (5.0-15.0) 10/06/24 23:50 Goal Trough Goal Trough: 15-20 mcg/mL Pharmacy Plan for Drug Dosing Pharmacy Plan for Drug Dosing: Pharmacy Service will continue to monitor and adjust dosing as required. TROUGH 12 @ 11.5 HOURS. INCREASE TO 1250MG Q12H AND DRAW TROUGH PRIOR TO 4TH DOSE Follow-Up Labs Follow-Up Labs: Trough: Vancomycin Date/Time Labs Ordered Labs to be done on [date and time ordered]: 10/08 @ 1130
[2024-10-07] MEDS: Vancomycin HCl 1,250 MG in 0.9% Normal Saline (250mL Bag) 250 ML 167 MG IV ×2 (01:03→12:09)
[2024-10-07 05:24] LABS: Hematocrit 47.2 % (40-54); Hemoglobin 15.7 g/dL (13.0-16.5); Immature Granulocytes Count 0.040 X10^3/uL (0.0-0.0); Mean Corp Hgb Conc 33.3 g/dL (32-36); Mean Corpuscular Volume 92.9 fL (80-94); Mean Platelet Vol. 10.9 fl (6.2-12.0); NRBC Flagged by Analyzer 0 % (0-5); Platelet Count 179 K/mm3 (150-450); RBC Distribution Width CV 12.5 % (11.6-14.6); RBC Distribution Width SD 42.7 fl (35.1-43.9); Red Blood Count 5.08 M/mm3 (4.6-6.2); White Blood Count 8.6 K/mm3 (4.4-11.0)
[2024-10-07 05:48] LABS: Anion Gap 14 (5-15); BUN 28 mg/dL (4-19); BUN/Creat Ratio 24.6 RATIO (10-20); Calcium,Total 9.0 mg/dL (7.6-11.0); Carbon Dioxide 22.0 mmol/L (21.0-32.0); Chloride 103 mmol/L (98-108); Estimated Creatinine Clearance 73.69 ml/min (50-250); Glucose 102 mg/dL (70-99); Potassium 3.4 mmol/L (3.3-5.1)
[2024-10-07 06:48] VITALS: BP 144/81; PULSE 68; RESP 20; TEMP 36.9; O2SAT 100
--- NOTE | 2024-10-07 08:08 | WOUNDNOTE ---
wound photo: right 3rd toe
--- NOTE | 2024-10-07 08:08 | WOUNDNOTE ---
wound photo: right 3rd toe
--- NOTE | 2024-10-07 08:09 | WOUNDNOTE ---
skin photo: right lower leg
--- NOTE | 2024-10-07 08:28 | PCM.PN.HOSP ---
Reason for Visit Chief Complaint: Right foot/ankle pain and swelling and generalized weakness Subjective Subjective Still with erythema. Objective Data Objective Data Vital Signs: Vital Signs Temp Pulse Resp BP Pulse Ox O2 Del Method 36.9 C 68 20 H 144/81 H 100 Room Air 10/07/24 06:48 10/07/24 06:48 10/07/24 06:48 10/07/24 06:48 10/07/24 06:48 10/07/24 06:48 Oxygen Delivery Method Room Air Weight: 108.771 kg Body Mass Index (BMI) 33.4 Intake & Output: Intake and Output for Last 24 Hours 10/05/24 10/06/24 10/07/24 23:59 23:59 23:59 Intake Total 1535 / 1535 1690 / 1690 275 / 275 Output Total 1550 / 1550 Balance 1535 / 1535 140 / 140 275 / 275 Lab / Micro Data 10/07/24 04:46 10/07/24 04:46 Labs: Laboratory Results - last 24 hr 10/06/24 11:38: POC Glucose 193 H 10/06/24 16:29: POC Glucose 221 H 10/06/24 22:25: POC Glucose 229 H 10/06/24 23:50: Vancomycin Trough 12.0 10/07/24 04:46: WBC 8.6, RBC 5.08, Hgb 15.7, Hct 47.2, MCV 92.9, MCH 30.9, MCHC 33.3, RDW Std Deviation 42.7, RDW Coeff of Brant 12.5, Plt Count 179, MPV 10.9, Immature Gran % (Auto) 0.500, Neut % (Auto) 73.4 H, Lymph % (Auto) 10.5 L, [place] % (Auto) 12.6 H, Eos % (Auto) 2.3, Baso % (Auto) 0.7, Absolute Neuts (auto) 6.3, Absolute Lymphs (auto) 0.90, Nucleated RBC % 0, Sodium 140, Potassium 3.4, Chloride 103, Carbon Dioxide 22.0, Anion Gap 14, BUN 28 H, Creatinine 1.12, Estim Creat Clear Calc 73.69, Est GFR (MDRD) Non-Af 69, BUN/Creatinine Ratio 24.6 H, Glucose 102 H, Calcium 9.0 Radiography Diagnostic Testing: Radiology Impression Shoulder X-Ray 10/06/24 11:45 IMPRESSION: Negative left shoulder Reading Location: [facility] Physical Exam Const alert and no apparent distress HEENT head/scalp atraumatic and moist oral mucous membranes Resp normal respiratory effort and no retractions Extremity Extremity Narrative: Superficial ulceration of the distal left third toe. Erythema from medial right foot to ankle. Overall the erythema has significantly withdrawn from the line of demarcation. Neuro Sensorium / Orientation: awake and alert Psych affect normal Assessment & Plan Assessment/Plan (1) Cellulitis of leg, right: PLAN: On IV vancomycin Began today after debridement of his left third toe. Concerned that the third toe could be the nidus of the infection. Will check an MRI with and without contrast to evaluate for osteomyelitis. If osteomyelitis is present then we will need to consult podiatry. (2) Debility: PLAN: complicated by cellulitis and Parkinson's disease PT OT evaluate and treat. PLAN: Plan Chronic conditions: DM2: glargine and SSI. resume empagliflozin as outpt. parkinson's disease: carbidopa/levodopa BPH: flomax VTE prophylaxis: LMWH. Discussed with the patient's at bedside. Charges/Coding Visit Charges Inpatient E&M: 90451 Subs Hosp L2
[2024-10-07 09:16] VITALS: BP 135/64; PULSE 77; RESP 18; TEMP 36.3; O2SAT 96
[2024-10-07] MEDS: Cholecalciferol (VIT D3) 25 MCG TABLET (1,000 UNITS) 50 MCG PO (09:18)
[2024-10-07] MEDS: Insulin Glargine-YFGN 100 UNIT/ML Pen 15 UNIT SC ×2 (09:19→21:34)
[2024-10-07] MEDS: 0.9% Saline Lock 10 ML Syringe IV (12:10)
--- NOTE | 2024-10-07 15:00 | MRI_ITS ---
PROCEDURE: LOWER EXT NO JOINT W/WO CONT 10/07/2024 REASON FOR EXAM: RIGHT 3RD TOE INFECTION TECHNIQUE: T1, T2, postcontrast T1 fat-sat MRI right foot with and without contrast. Motion is noted. 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 There is abnormal marrow signal in the remainder of the distal phalanx of the 3rd digit with low T1, high T2, high postcontrast marrow signal, sagittal contrast image 20/32. There is normal marrow signal throughout the remainder of the bony structures of the forefoot. Sesamoids are aligned. The flexor and extensor tendons appear intact. The Lisfranc articulation is not included. There is circumferential subcutaneous edema with no organized or drainable collection. 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 There is abnormal marrow signal in the remainder of the distal phalanx of the 3 rd digit with low T1, high T2, high postcontrast marrow signal, sagittal contrast image 20/32. This finding meets the criteria for osteomyelitis. There is circumferential subcutaneous edema with no organized or drainable abril ection. The differential includes cellulitis and venous stasis. Reading Location: [facility]
--- NOTE | 2024-10-07 15:04 | CASEMGMT ---
Addendum entered by Nikki Foster 10/07/24 15:51: Pt remains off of the floor at this time. Addendum entered by Nikki Foster 10/07/24 15:09: RN CM into pt room, pt is off of the floor at this time. RN CM to check back. Original Note: VITO PACHECO into pt room, introduced self, pt sitting up in chair. Pt states he awhile ago requested to go back to bed and would like to do this prior to assessment. TC to DENTAL CERAMIST to request assistance for pt.
[2024-10-07 16:28] VITALS: BP 156/89; PULSE 86; RESP 18; TEMP 37.3; O2SAT 98
[2024-10-07 21:10] VITALS: BP 142/84; PULSE 99; RESP 15; TEMP 37.2; O2SAT 97
[2024-10-08] MEDS: Vancomycin HCl 1,250 MG in 0.9% Normal Saline (250mL Bag) 250 ML 1250 MG IV (00:42)
[2024-10-08] MEDS: 0.9% Normal Saline (250mL Bag) 250 ML 15 ML IV (00:43)
[2024-10-08 07:40] VITALS: BP 146/74; PULSE 70; RESP 16; TEMP 36.9; O2SAT 97
[2024-10-08 07:45] LABS: Hematocrit 43.8 % (40-54); Hemoglobin 15.1 g/dL (13.0-16.5); Immature Granulocytes Count 0.060 X10^3/uL (0.0-0.0); Mean Corp Hgb Conc 34.5 g/dL (32-36); Mean Corpuscular Volume 90.7 fL (80-94); Mean Platelet Vol. 10.7 fl (6.2-12.0); NRBC Flagged by Analyzer 0 % (0-5); Platelet Count 209 K/mm3 (150-450); RBC Distribution Width CV 12.4 % (11.6-14.6); RBC Distribution Width SD 41.5 fl (35.1-43.9); Red Blood Count 4.83 M/mm3 (4.6-6.2); White Blood Count 10.0 K/mm3 (4.4-11.0)
[2024-10-08 08:23] VITALS: O2SAT 95
--- NOTE | 2024-10-08 08:29 | PN.HOSP_ITS ---
Reason for Visit Chief Complaint: Right foot/ankle pain and swelling and generalized weakness Subjective Subjective No new events. Objective Data Objective Data Vital Signs: Vital Signs Temp Pulse Resp BP Pulse Ox O2 Del Method 36.9 C 70 16 146/74 H 95 Room Air 10/08/24 07:40 10/08/24 07:40 10/08/24 07:40 10/08/24 07:40 10/08/24 08:23 10/08/24 08:23 Oxygen Delivery Method Room Air Weight: 108.771 kg Body Mass Index (BMI) 33.4 Intake & Output: Intake and Output for Last 24 Hours 10/06/24 10/07/24 10/08/24 23:59 23:59 23:59 Intake Total 1690 / 1690 1650 / 1650 275 / 275 Output Total 1550 / 1550 1100 / 1100 150 / 150 Balance 140 / 140 550 / 550 125 / 125 Lab / Micro Data 10/08/24 07:30 10/08/24 09:12 Labs: Laboratory Results - last 24 hr 10/07/24 12:07: POC Glucose 173 H 10/07/24 16:32: POC Glucose 193 H 10/07/24 21:30: POC Glucose 232 H 10/08/24 07:01: POC Glucose 136 H 10/08/24 07:30: WBC 10.0, RBC 4.83, Hgb 15.1, Hct 43.8, MCV 90.7, MCH 31.3, MCHC 34.5, RDW Std Deviation 41.5, RDW Coeff of Brant 12.4, Plt Count 209, MPV 10.7, Immature Gran % (Auto) 0.600, Neut % (Auto) 77.5 H, Lymph % (Auto) 9.0 L, [place] % (Auto) 10.9 H, Eos % (Auto) 1.6, Baso % (Auto) 0.4, Absolute Neuts (auto) 7.8 H, Absolute Lymphs (auto) 0.90, Nucleated RBC % 0, Sodium Cancelled, Potassium Cancelled, Chloride Cancelled, Carbon Dioxide Cancelled, Anion Gap Cancelled, BUN Cancelled, Creatinine Cancelled, Estim Creat Clear Calc Cancelled, Est GFR (MDRD) Non-Af Cancelled, BUN/Creatinine Ratio Cancelled, Glucose Cancelled, Calcium Cancelled Radiography Diagnostic Testing: Radiology Impression Lower Extremity MRI 10/07/24 15:00 IMPRESSION: There is prior partial amputation of the 3rd distal phalanx. There is abnormal marrow signal in the remainder of the distal phalanx of the 3rd digit with low T1, high T2, high postcontrast marrow signal, sagittal contrast image . This finding meets the criteria for osteomyelitis. There is circumferential subcutaneous edema with no organized or drainable collection. The differential includes cellulitis and venous stasis. Reading Location: [facility] Physical Exam Const alert and no apparent distress HEENT head/scalp atraumatic and moist oral mucous membranes Resp normal respiratory effort, no retractions, no use of accessory muscles and clear to auscultation bilaterally Cardio regular rate, regular rhythm, S1 normal heart sound and S2 normal heart sound GI normal to inspection, nondistended, normoactive bowel sounds, soft to palpation, non-tender and non-distended Extremity normal to inspection Extremity Narrative: Right lower extremity edema. Neuro Sensorium / Orientation: awake and alert Assessment & Plan Assessment/Plan (1) Cellulitis of leg, right: PLAN: On IV vancomycin Began today after debridement of his left third toe. Concerned that the third toe could be the nidus of the infection. MRI showed osteomyelitis of right 3rd toe. Consult podiatry for definitive treatment and infectious disease for long-term antibiotics. (2) Debility: PLAN: complicated by cellulitis and Parkinson's disease Plan for SNF PLAN: Plan Chronic conditions: * DM2: glargine and SSI. resume empagliflozin as outpt. * parkinson's disease: carbidopa/levodopa * BPH: flomax VTE prophylaxis: LMWH. Discussed with patient's at bedside. Charges/Coding Visit Charges Inpatient E&M: 66337 Subs Hosp L2
[2024-10-08 10:23] LABS: Anion Gap 15 (5-15); BUN 27 mg/dL (4-19); BUN/Creat Ratio 25.5 RATIO (10-20); Calcium,Total 9.0 mg/dL (7.6-11.0); Carbon Dioxide 24.7 mmol/L (21.0-32.0); Chloride 102 mmol/L (98-108); Estimated Creatinine Clearance 77.13 ml/min (50-250); Glucose 145 mg/dL (70-99); Potassium 3.4 mmol/L (3.3-5.1)
[2024-10-08] MEDS: Insulin Glargine-YFGN 100 UNIT/ML Pen 15 UNIT SC ×2 (11:40→21:30)
[2024-10-08] MEDS: Cholecalciferol (VIT D3) 25 MCG TABLET (1,000 UNITS) 50 MCG PO (11:42)
--- NOTE | 2024-10-08 12:00 | CASEMGMT ---
VITO PACHECO Assessment Face to Face with patient for initial transition planning/care coordination assessment. VITO PACHECO introduced self and role at [facility], pt voices understanding. Pt is A&Ox4 and is resting comfortably in bed and is calm. Pt's at bedside and requests to have pt's STEF on speaker phone during conversation. Care providers, pharmacy, and demographics verified. Admitting dx: RLE Cellulitis and weakness LACE Strata: 3 PCP: Rich Foy Specialists: Dr Morgan (Podiatry) Preferred Pharmacy: [facility] Insurance: [facility] A/B, MMO Prescription Benefit: Yes LNOK: Raiza (W), Wang (Son - Lives in [place]), Juan Pablo (Son - Lives in [place]), Jerrica Cardona (Daughter - Lives in [place]), Rich Cardona (STEF - Lives in [place]). Living Arrangements: Pt lives with his in a single story home with 3-4 steps to enter ADLs/IADLs: Indep at baseline. Pt is currently requiring additional assistance Transportation: Self ([employer] distances only), DME: [employer] with sufficient supplies, Cane, lift chair, grab bars HHC/SNF: Reports HH history x 1 year ago but cannot recall the name of the agency. Denies SNF history Pt?s goal: Return to PLOF Plan: Anticipate SNF at the time of DC. See PT notes. See MRI results. Podiatry is consulted and pending eval. At this time, the pt states that he does not feel safe returning home and is requesting additional care and therapy at a SNF. This VITO PACHECO provided the pt with a list of local SNF's that are in-network with the pt's insurance. Pt and family advised to review and select top 3 preferences. Pt and pt's SO report that they will discuss this with family and hope to have choices by tomorrow. Pt and pt's family deny further questions or concerns at this time. Hospitalist updated on DC plan. Jeremias Alberto RN, CM
[2024-10-08 12:53] LABS: Vancomycin, Trough Level 15.4 ug/mL (5.0-15.0)
--- NOTE | 2024-10-08 12:59 | PCM.RX.CS ---
Consult Antibiotic Management Pharmacy has been consulted to manage selected antibiotic: Vancomycin Type of Intervention Type of Consult: Follow-up Suspected Infection Suspected Infection: Skin/Soft tissue Prior Doses of Antibiotics Prior Doses of Antibiotics Received/Current Regimen: Vancomycin 1250 mg IV Q12H last given 10/08 @ 0042 Labs Labs: Sodium 142 mmol/L (133-145) 10/08/24 09:12 Potassium 3.4 mmol/L (3.3-5.1) 10/08/24 09:12 Chloride 102 mmol/L (98-108) 10/08/24 09:12 Carbon Dioxide 24.7 mmol/L (21.0-32.0) 10/08/24 09:12 Anion Gap 15 (5-15) 10/08/24 09:12 BUN 27 mg/dL (4-19) H 10/08/24 09:12 Creatinine 1.07 mg/dL (0.70-1.20) 10/08/24 09:12 Est GFR (MDRD) Non-Af 73 (>60) 10/08/24 09:12 BUN/Creatinine Ratio 25.5 RATIO (10-20) H 10/08/24 09:12 Glucose 145 mg/dL (70-99) H 10/08/24 09:12 Vancomycin Trough 15.4 ug/mL (5.0-15.0) H 10/08/24 11:36 Dosing Weight Weight used for dosin kg Estimated Creatinine Clearance Estimated Creatinine Clearance: ~ 77 Goal Trough Goal Trough: 15-20 mcg/mL Pharmacy Plan for Drug Dosing Pharmacy Plan for Drug Dosing: Vancomycin trough = 15.4, continue current dosing, trough in 2 days Pharmacy Service will continue to monitor and adjust dosing as required. Follow-Up Labs Follow-Up Labs: Trough: Vancomycin Date/Time Labs Ordered Labs to be done on [date and time ordered]: 10/10/24 @ 3357
[2024-10-08] MEDS: Vancomycin HCl 1,250 MG in 0.9% Normal Saline (250mL Bag) 250 ML 167 MG IV (13:40)
[2024-10-08] MEDS: Vancomycin Trough/Random Due 1 LAB MC (13:40)
[2024-10-08 14:18] VITALS: BP 150/71; PULSE 73; RESP 16; TEMP 36.5; O2SAT 94
[2024-10-08] MEDS: Juven (unflavored) Packet 1 PACKET PO (16:46)
[2024-10-08 21:23] VITALS: BP 145/88; PULSE 88; RESP 18; TEMP 36.8; O2SAT 96
[2024-10-09] MEDS: 0.9% Saline Lock 10 ML Syringe IV ×2 (00:31→13:42)
[2024-10-09] MEDS: Vancomycin HCl 1,250 MG in 0.9% Normal Saline (250mL Bag) 250 ML 167 MG IV ×3 (00:31→23:46)
[2024-10-09] MEDS: MELATONIN 3 MG TABLET PO (00:40)
[2024-10-09 00:43] VITALS: BP 157/74; PULSE 67; RESP 18; TEMP 36.6; O2SAT 97
[2024-10-09 05:14] LABS: Hematocrit 41.3 % (40-54); Hemoglobin 14.1 g/dL (13.0-16.5); Immature Granulocytes Count 0.060 X10^3/uL (0.0-0.0); Mean Corp Hgb Conc 34.1 g/dL (32-36); Mean Corpuscular Volume 90.6 fL (80-94); Mean Platelet Vol. 10.4 fl (6.2-12.0); NRBC Flagged by Analyzer 0 % (0-5); Platelet Count 233 K/mm3 (150-450); RBC Distribution Width CV 12.6 % (11.6-14.6); RBC Distribution Width SD 41.5 fl (35.1-43.9); Red Blood Count 4.56 M/mm3 (4.6-6.2); White Blood Count 9.3 K/mm3 (4.4-11.0)
[2024-10-09 05:47] LABS: Anion Gap 11 (5-15); BUN 27 mg/dL (4-19); BUN/Creat Ratio 26.2 RATIO (10-20); Calcium,Total 8.6 mg/dL (7.6-11.0); Carbon Dioxide 24.0 mmol/L (21.0-32.0); Chloride 106 mmol/L (98-108); Estimated Creatinine Clearance 81.72 ml/min (50-250); Glucose 159 mg/dL (70-99); Potassium 3.2 mmol/L (3.3-5.1)
[2024-10-09 06:42] VITALS: BP 157/81; PULSE 70; RESP 18; TEMP 36.2; O2SAT 96
--- NOTE | 2024-10-09 07:49 | CON.PCM_ITS ---
HPI Consult Data Date of Consult: 10/09/24 HPI Narrative HPI Narrative: AMBROCIO JEFFERS, is a 74 M who presents [facility] Medical History Parkinson disease Hypertension Diabetes Home Medications ?Medication ?Instructions ?Recorded ?Last Taken ?Type carbidopa 25 mg-levodopa 250 mg 2 tab PO BID parkinson s 03/10/20 10/05/24 History tablet glimepiride 4 mg tablet 4 mg PO DAILY diabetes 03/1010/05/24 History lisinopril 20 1 tab PO DAILY blood pressur e 03/10/20 10/05/24 History mg-hydrochlorothiazide 25 mg tablet tamsulosin 0.4 mg capsule 0.4 mg PO Q24H retention 10/05/24 History cholecalciferol (vitamin D3) 50 50 mcg PO DAILY supple ment 11/09/22 10/05/24 History mcg (2,000 unit) tablet empagliflozin 25 mg tablet 25 mg PO DAILY diabetes 10/05/24 History (Jardiance) gabapentin 100 mg capsule 100 mg PO Q8H pain/neurapath y 11/09/22 10/05/24 History pravastatin 20 mg tablet 20 mg PO DAILY cholesterol 0 11/09/22 10/04/24 History cyclobenzaprine 10 mg tablet 10 mg PO TID pain 5 10/05/24 History doxycycline monohydrate 100 mg 100 mg PO BID infection 10/05/24 10/05/24 History capsule insulin NPH-regular 70-30 U-100 20 unit subcut .daily HS diabetes 10/05/24 10/04/24 History insulin 100 unit/mL subcutaneous pen (Novolin 70-30 FlexPen U-100 Insulin) insulin human U-100 NPH-regulr 30 unit subcut .daily A M diabetes 10/05/24 10/05/24 History 70-30 mix 100 unit/mL subcutaneous susp (Humulin 70/30 U-100 Insulin) omeprazole 20 mg capsule,delayed 20 mg PO DAILY heartb urn 10/05/24 10/05/24 History release propranolol 20 mg tablet 20 mg PO BID blood pressure 10/05/24 10/05/24 History Allergy/AdvReac Type Severity Reaction Status Date / Time No Known Allergies Allergy Verified 10/05/24 11:37 Surgical History History of partial amputation of toe of right foot h/o appendectomy Social History Smoking Status: Never smoker Lab / Micro Data 10/09/24 04:47 10/09/24 04:47 Labs: Laboratory Results - last 24 hr 10/08/24 07:30: Sodium Cancelled, Potassium Cancelled, Chloride Cancelled, Carbon Dioxide Cancelled, Anion Gap Cancelled, BUN Cancelled, Creatinine Cancelled, Estim Creat Clear Calc Cancelled, Est GFR (MDRD) Non-Af Cancelled, BUN/Creatinine Ratio Cancelled, Glucose Cancelled, Calcium Cancelled 10/08/24 09:12: Sodium 142, Potassium 3.4, Chloride 102, Carbon Dioxide 24.7, Anion Gap 15, BUN 27 H, Creatinine 1.07, Estim Creat Clear Calc 77.13, Est GFR (MDRD) Non-Af 73, BUN/Creatinine Ratio 25.5 H, Glucose 145 H, Calcium 9.0 10/08/24 11:36: Vancomycin Trough 15.4 H 10/08/24 11:38: POC Glucose 314 H 10/08/24 16:37: POC Glucose 215 H 10/08/24 21:20: POC Glucose 219 H 10/09/24 04:47: WBC 9.3, RBC 4.56 L, Hgb 14.1, Hct 41.3, MCV 90.6, MCH 30.9, MCHC 34.1, RDW Std Deviation 41.5, RDW Coeff of Brant 12.6, Plt Count 233, MPV 10.4, Immature Gran % (Auto) 0.600, Neut % (Auto) 71.1 H, Lymph % (Auto) 13.4 L, [place] % (Auto) 12.0 H, Eos % (Auto) 2.6, Baso % (Auto) 0.3, Absolute Neuts (auto) 6.6, Absolute Lymphs (auto) 1.25, Nucleated RBC % 0, Sodium 141, Potassium 3.2 L , Chloride 106, Carbon Dioxide 24.0, Anion Gap 11, BUN 27 H, Creatinine 1.01, Estim Creat Clear Calc 81.72, Est GFR (MDRD) Non-Af 79, BUN/Creatinine Ratio 26.2 H, Glucose 159 H, Calcium 8.6 10/09/24 06:36: POC Glucose 154 H
--- NOTE | 2024-10-09 07:49 | PCM.CONS.GEN ---
Assessment & Plan Assessment/Plan (1) Osteomyelitis of right foot: QUALIFIERS: Osteomyelitis type: subacute Qualified Code(s): M86.271 - Subacute osteomyelitis, right ankle and foot (2) Non-pressure chronic ulcer of other part of right foot with fat layer exposed: (3) Cellulitis of right foot: (4) Debility: PLAN: Plan Patient seen and evaluated I have reviewed previous radiographs of the right foot and ankle from 10/05/2024 and concur with radiographic read. Third digit wound of the right foot appears stable and noninfected with superficial ulceration appreciated at the distal tuft of the amputation stump. Cellulitis has improved in the right lower extremity with erythema mostly about the ankle at this present time. WBC currently 9.3 On 10/05/2024 ESR noted to be elevated at 251 and ESR at 37 MRI was obtained 10/07/2024 demonstrating likely osteomyelitis of the remaining osseous structures of the middle and distal phalanx of the third digit of the right foot. I have reviewed imaging osteomyelitis is questionable however given concern over any recurrence and for definitive treatment patient is agreeable to amputation of the third digit. Currently on IV vancomycin Medicine team following for medical management, they are greatly appreciated. I discussed with the patient performing third digit amputation of the right foot. He is agreeable to this. Discussed the risks and complications of the procedure. Discussed postoperative postoperative care with patient at bedside this morning. Discussed his risks include but are not limited to the following: Pain, continued pain, phantom pain, complex regional pain syndrome, neuritis/numbness, swelling, scarring, poor cosmetic result, infection, dehiscence, nonhealing/delayed healing, need for further surgery/procedure, digital deformity secondary to the amputation of the surrounding digits, difficulty wearing shoe gear, difficulty with ambulation, inability to wear shoe gear, addiction to pain medication, stroke, bleeding, heart attack, loss of function, loss of limb, loss of life. Patient is understanding of these and was able to repeat these back. Patient wishes to proceed forward with the surgical intervention for definitive treatment. Surgical consent to be obtained. No promises were given. No guarantees were made. Patient to be consented for third digit amputation of the right foot. Patient will be n.p.o. after midnight Surgical intervention planned for 10/10/2024 at 12:30 PM Will continue to follow while in house. Reach out to Dr. Davis for any questions or concerns. Rich Davis Jr. D.P.M. [facility] [phone] HPI Consult Data Date of Consult: 10/09/24 HPI Narrative Reason for Consultation: Third digit ulceration right foot HPI Narrative: AMBROCIO JEFFERS, is a 74 M who presents to [facility] afternoon of 10/05/2024 for right ankle and foot pain with swelling and generalized weakness. He has PMHx of DM type II with peripheral polyneuropathy, Parkinson's disease, Hx of falls secondary to Parkinson's, HTN. Reports that he does follow with Dr. Morgan and had a debridement of the third digit of the right foot in office on 10/01/2024. States that he previously underwent distal phalanx amputation but had developed a small wound at the tip of the toe after amputation and has been going for serial debridement. States that he did fall the morning of 10/03/2024 and states that the ankle did become red and painful after this. Due to redness he was also started on doxycycline by Dr. Morgan however they state redness did not improve nor did pain and thus he presented to the ED. While in ED he did undergo workup with no leukocytosis noted and afebrile status. Inflammatory markers were elevated with CRP 251 and ESR of 37. He did have negative foot x-rays and ankle x-rays. He was given dose of vancomycin in the ED and admitted for cellulitis and weakness. Patient denies N/V/F/chills. Does state that he feels weaker than normal and the right ankle is yeast distiller to touch to the lateral aspect. Denies further complaints. Podiatry consulted for evaluation of his third digit wound. [facility]LY [facility], [facility] Medical History Parkinson disease Hypertension Diabetes Home Medications ?Medication ?Instructions ?Recorded ?Last Taken ?Type carbidopa 25 mg-levodopa 250 mg 2 tab PO BID parkinsons 03/10/20 10/05/24 History tablet glimepiride 4 mg tablet 4 mg PO DAILY diabetes 03/10/20 10/05/24 History lisinopril 20 1 tab PO DAILY blood pressure 03/10/20 10/05/24 History mg-hydrochlorothiazide 25 mg tablet tamsulosin 0.4 mg capsule 0.4 mg PO Q24H retention 03/10/20 10/05/24 History cholecalciferol (vitamin D3) 50 50 mcg PO DAILY supplement 11/09/22 10/05/24 History mcg (2,000 unit) tablet empagliflozin 25 mg tablet 25 mg PO DAILY diabetes 11/09/22 10/05/24 History (Jardiance) gabapentin 100 mg capsule 100 mg PO Q8H pain/neurapathy 11/09/22 10/05/24 History pravastatin 20 mg tablet 20 mg PO DAILY cholesterol 11/09/22 10/04/24 History cyclobenzaprine 10 mg tablet 10 mg PO TID pain 10/05/24 10/05/24 History doxycycline monohydrate 100 mg 100 mg PO BID infection 10/05/24 10/05/24 History capsule insulin NPH-regular 70-30 U-100 20 unit subcut .daily HS diabetes 10/05/24 10/04/24 History insulin 100 unit/mL subcutaneous pen (Novolin 70-30 FlexPen U-100 Insulin) insulin human U-100 NPH-regulr 30 unit subcut .daily AM diabetes 10/05/24 10/05/24 History 70-30 mix 100 unit/mL subcutaneous susp (Humulin 70/30 U-100 Insulin) omeprazole 20 mg capsule,delayed 20 mg PO DAILY heartburn 10/05/24 10/05/24 History release propranolol 20 mg tablet 20 mg PO BID blood pressure 10/05/24 10/05/24 History Allergy/AdvReac Type Severity Reaction Status Date / Time No Known Allergies Allergy Verified 10/05/24 11:37 Surgical History History of partial amputation of toe of right foot h/o appendectomy Social History Smoking Status: Never smoker ROS Constitutional Constitutional: Reports fatigue and weakness; Denies body ache(s), chills or fever(s) Eyes Eyes: Denies change in vision, diplopia or loss of vision ENT HEENT: Denies dysphagia, nasal congestion or rhinorrhea Cardiovascular Cardiovascular: Denies chest pain, claudication or palpitations Respiratory/Chest Respiratory/Chest: Denies dyspnea, shortness of breath at rest or wheezing Gastrointestinal Gastrointestinal: Denies abdominal pain, constipation, diarrhea, nausea or vomiting Genitourinary Genitourinary: Denies dysuria, urinary frequency or urinary urgency Musculoskeletal Musculoskeletal: Denies joint pain, joint stiffness or joint swelling Integumentary Integumentary: Denies jaundice, lesions or pruritus Neurologic Neurologic: Denies dizziness, numbness or seizures Psychiatric Psychiatric: Denies anxiety or depression Endocrine Endocrinology: Denies polydipsia, polyphagia or polyuria Hematologic/Lymphatic Hematologic/Lymphatic: Denies easy bleeding or easy bruising Allergic/Immunologic Allergic/Immunologic: Denies urticaria Physical Exam Const alert, oriented x3 and no apparent distress General Appearance: cooperative HEENT normocephalic Eyes Eyes Narrative: Wears glasses General Eye: normal appearance of both eyes Neck General: normal visual inspection Lymph Lymphatic: no lymphadenopathy noted and no lymphedema noted Resp normal respiratory effort Cardio regular rate and regular rhythm Extremity no calf tenderness Extremity Narrative: Bilateral lower extremity: Vascular: DP and PT pulses weakly palpable. CFT less than 5 seconds to the digits. Normal temperature gradient. Hair growth is diminished to digits and foot Neurologic: Gross sensation is intact. 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 Negative Jaramillo sign, negative Homans' sign. Pain to palpation about the lateral ankle, anterior ankle, and medial ankle right lower extremity. Dermatological: There is erythema about the ankle to just above the ankle mortise/distal tibia right lower extremity. This has receded from the previous line of demarcation consistent with improving cellulitis. Third digit partial amputation of the right foot demonstrates superficial wound at the most distal stump. There is no surrounding erythema of the digit or foot, no purulent drainage from the digit site, no foul odor noted. No pain to palpation of the digit. Skin no rashes or lesions noted Neuro moves all extremities Lab / Micro Data 10/09/24 04:47 10/09/24 04:47 Labs: Laboratory Results - last 24 hr 10/08/24 07:30: Sodium Cancelled, Potassium Cancelled, Chloride Cancelled, Carbon Dioxide Cancelled, Anion Gap Cancelled, BUN Cancelled, Creatinine Cancelled, Estim Creat Clear Calc Cancelled, Est GFR (MDRD) Non-Af Cancelled, BUN/Creatinine Ratio Cancelled, Glucose Cancelled, Calcium Cancelled 10/08/24 09:12: Sodium 142, Potassium 3.4, Chloride 102, Carbon Dioxide 24.7, Anion Gap 15, BUN 27 H, Creatinine 1.07, Estim Creat Clear Calc 77.13, Est GFR (MDRD) Non-Af 73, BUN/Creatinine Ratio 25.5 H, Glucose 145 H, Calcium 9.0 10/08/24 11:36: Vancomycin Trough 15.4 H 10/08/24 11:38: POC Glucose 314 H 10/08/24 16:37: POC Glucose 215 H 10/08/24 21:20: POC Glucose 219 H 10/09/24 04:47: WBC 9.3, RBC 4.56 L, Hgb 14.1, Hct 41.3, MCV 90.6, MCH 30.9, MCHC 34.1, RDW Std Deviation 41.5, RDW Coeff of Brant 12.6, Plt Count 233, MPV 10.4, Immature Gran % (Auto) 0.600, Neut % (Auto) 71.1 H, Lymph % (Auto) 13.4 L, [place] % (Auto) 12.0 H, Eos % (Auto) 2.6, Baso % (Auto) 0.3, Absolute Neuts (auto) 6.6, Absolute Lymphs (auto) 1.25, Nucleated RBC % 0, Sodium 141, Potassium 3.2 L, Chloride 106, Carbon Dioxide 24.0, Anion Gap 11, BUN 27 H, Creatinine 1.01, Estim Creat Clear Calc 81.72, Est GFR (MDRD) Non-Af 79, BUN/Creatinine Ratio 26.2 H, Glucose 159 H, Calcium 8.6 10/09/24 06:36: POC Glucose 154 H
[2024-10-09 07:52] VITALS: BP 144/76; PULSE 70; RESP 17; TEMP 36.6; O2SAT 98
[2024-10-09] MEDS: Juven (unflavored) Packet 1 PACKET PO (07:56)
[2024-10-09] MEDS: Insulin Glargine-YFGN 100 UNIT/ML Pen 15 UNIT SC ×2 (07:57→21:26)
[2024-10-09] MEDS: Cholecalciferol (VIT D3) 25 MCG TABLET (1,000 UNITS) 50 MCG PO (07:57)
--- NOTE | 2024-10-09 08:01 | PCM.PN.HOSP ---
Reason for Visit Chief Complaint: Right foot/ankle pain and swelling and generalized weakness Subjective Subjective No events overnight. Objective Data Objective Data Vital Signs: Vital Signs Temp Pulse Resp BP Pulse Ox O2 Del Method 36.6 C 70 17 144/76 H 98 Room Air 10/09/24 07:52 10/09/24 07:52 10/09/24 07:52 10/09/24 07:52 10/09/24 07:52 10/09/24 07:52 Oxygen Delivery Method Room Air Weight: 108.8 kg Body Mass Index (BMI) 33.4 Intake & Output: Intake and Output for Last 24 Hours 10/07/24 10/08/24 10/09/24 23:59 23:59 23:59 Intake Total 1650 / 1650 550 / 550 675 / 675 Output Total 1100 / 1100 350 / 350 600 / 600 Balance 550 / 550 200 / 200 75 / 75 Lab / Micro Data 10/09/24 04:47 10/09/24 04:47 Labs: Laboratory Results - last 24 hr 10/08/24 07:30: Sodium Cancelled, Potassium Cancelled, Chloride Cancelled, Carbon Dioxide Cancelled, Anion Gap Cancelled, BUN Cancelled, Creatinine Cancelled, Estim Creat Clear Calc Cancelled, Est GFR (MDRD) Non-Af Cancelled, BUN/Creatinine Ratio Cancelled, Glucose Cancelled, Calcium Cancelled 10/08/24 09:12: Sodium 142, Potassium 3.4, Chloride 102, Carbon Dioxide 24.7, Anion Gap 15, BUN 27 H, Creatinine 1.07, Estim Creat Clear Calc 77.13, Est GFR (MDRD) Non-Af 73, BUN/Creatinine Ratio 25.5 H, Glucose 145 H, Calcium 9.0 10/08/24 11:36: Vancomycin Trough 15.4 H 10/08/24 11:38: POC Glucose 314 H 10/08/24 16:37: POC Glucose 215 H 10/08/24 21:20: POC Glucose 219 H 10/09/24 04:47: WBC 9.3, RBC 4.56 L, Hgb 14.1, Hct 41.3, MCV 90.6, MCH 30.9, MCHC 34.1, RDW Std Deviation 41.5, RDW Coeff of Brant 12.6, Plt Count 233, MPV 10.4, Immature Gran % (Auto) 0.600, Neut % (Auto) 71.1 H, Lymph % (Auto) 13.4 L, Nicholas % (Auto) 12.0 H, Eos % (Auto) 2.6, Baso % (Auto) 0.3, Absolute Neuts (auto) 6.6, Absolute Lymphs (auto) 1.25, Nucleated RBC % 0, Sodium 141, Potassium 3.2 L, Chloride 106, Carbon Dioxide 24.0, Anion Gap 11, BUN 27 H, Creatinine 1.01, Estim Creat Clear Calc 81.72, Est GFR (MDRD) Non-Af 79, BUN/Creatinine Ratio 26.2 H, Glucose 159 H, Calcium 8.6 10/09/24 06:36: POC Glucose 154 H Physical Exam Const alert and no apparent distress HEENT head/scalp atraumatic and moist oral mucous membranes Resp normal respiratory effort, no retractions, no use of accessory muscles and clear to auscultation bilaterally Cardio regular rate, regular rhythm, S1 normal heart sound and S2 normal heart sound GI normal to inspection, nondistended, normoactive bowel sounds, soft to palpation, non-tender and non-distended Extremity normal to inspection and full ROM Extremity Narrative: Swelling in distal right lower extremity. Neuro Sensorium / Orientation: awake and alert Assessment & Plan Assessment/Plan (1) Cellulitis of leg, right: PLAN: On IV vancomycin Began today after debridement of his left third toe. Concerned that the third toe could be the nidus of the infection. MRI showed osteomyelitis of right 3rd toe. Consult podiatry for definitive treatment and infectious disease for long-term antibiotics. Check duplex of RLE given the edema. (2) Debility: PLAN: complicated by cellulitis and Parkinson's disease Plan for SNF when medically stable. PLAN: Plan Chronic conditions: DM2: glargine and SSI. resume empagliflozin as outpt. parkinson's disease: carbidopa/levodopa BPH: flomax VTE prophylaxis: LMWH. Charges/Coding Visit Charges Inpatient E&M: 17292 [facility] Hosp L1
--- NOTE | 2024-10-09 12:00 | CASEMGMT ---
Addendum entered by Jared Alberto 10/09/24 15:32: TCU music coordinator states that they have only have one bed available at this time and that CM can follow up on the referral tomorrow. Addendum entered by Jared Alberto 10/09/24 15:05: TC to the pt's (Raiza) who states that she was able to review the list last evening. Raiza states that she has only selected one facility as she would appreciate more time to select other options. At this time, the FOC is [facility]. Raiza denies further questions or concerns at this time. This RN CM notified the TCU laboratory operations coordinator via backline. To follow. Original Note: Per chart review and rounds, pt is scheduled for amputation surgery tomorrow at 1230. RN CM to the pt room at this time to follow up on SNF choices. Pt states that his has been reviewing the list and that he prefers to go to wherever she chooses. Inquired if it is OK to call the at this time. Pt states that his is currently at work and will not be getting off until 2. CM to follow.
--- NOTE | 2024-10-09 13:36 | VDLE_ITS ---
Reason For Study Reason For Study: Right leg pain RIGHT LEFT GSV is normal. CFV is compressible, spontaneous, phasic, competent, CFV is compressible, spontaneous, phasic, competent and demonstrates normal augmentation. and demonstrates normal augmentation. FV is compressible, spontaneous, phasic, competent and demonstrates normal augmentation. POP V is compressible, spontaneous, phasic, competent and demonstrates normal augmentation. T/P Trunk is compressible. PTV is compressible. RT PerV is compressible. Procedure This is a venous duplex using B-mode, color flow and spectral Doppler. Exam performed in department. A preliminary report was called and/or faxed to Claire PADRON. VL/Venous Duplex US, Unilateral Interpretation Summary Deep veins of the right lower extremity are patent and compressible segmentally . There is no evidence of right lower extremity deep vein thrombosis. Valvular competence appears intact within the p roximal deep venous system on the right . The right great saphenous vein appears patent and compressible segmentally. The left common femoral vein is patent and compressible . Ordering Physician: Ryne Steward Referring Physician: Rich Foy Performed By: Kiesha Shah RVT
--- NOTE | 2024-10-09 13:52 | PCM.CONS.GEN ---
Assessment & Plan Assessment/Plan (1) Osteomyelitis of right foot: QUALIFIERS: Osteomyelitis type: subacute Qualified Code(s): M86.271 - Subacute osteomyelitis, right ankle and foot PLAN: R 3rd toe presumed osteo. Wound cx with MRSA. OR planned for toe amp tomorrow. Cont vanc. Will follow, thank you HPI Consult Data Date of Consult: 10/09/24 HPI Narrative Reason for Consultation: osteo HPI Narrative: AMBROCIO JEFFERS, is a 74 M with h/o Parkinson and DM neuropathy, presented to ED 10/05 with one week worsening R 3rd toe redness after having debridement by Dr. Morgan 10/01. Redness spread up his leg, started on po doxy. Sx worsened, came to ED, admitted on vanc. No fever, feeling ok today, OR planned. Full ROS performed and neg except as noted above. [facility] Medical History Parkinson disease Hypertension Diabetes Home Medications ?Medication ?Instructions ?Recorded ?Last Taken ?Type carbidopa 25 mg-levodopa 250 mg 2 tab PO BID parkinsons 03/10/20 10/05/24 History tablet glimepiride 4 mg tablet 4 mg PO DAILY diabetes 03/10/20 10/05/24 History lisinopril 20 1 tab PO DAILY blood pressure 03/10/20 10/05/24 History mg-hydrochlorothiazide 25 mg tablet tamsulosin 0.4 mg capsule 0.4 mg PO Q24H retention 03/10/20 10/05/24 History cholecalciferol (vitamin D3) 50 50 mcg PO DAILY supplement 11/09/22 10/05/24 History mcg (2,000 unit) tablet empagliflozin 25 mg tablet 25 mg PO DAILY diabetes 11/09/22 10/05/24 History (Jardiance) gabapentin 100 mg capsule 100 mg PO Q8H pain/neurapathy 11/09/22 10/05/24 History pravastatin 20 mg tablet 20 mg PO DAILY cholesterol 11/09/22 10/04/24 History cyclobenzaprine 10 mg tablet 10 mg PO TID pain 10/05/24 10/05/24 History doxycycline monohydrate 100 mg 100 mg PO BID infection 10/05/24 10/05/24 History capsule insulin NPH-regular 70-30 U-100 20 unit subcut .daily HS diabetes 10/05/24 10/04/24 History insulin 100 unit/mL subcutaneous pen (Novolin 70-30 FlexPen U-100 Insulin) insulin human U-100 NPH-regulr 30 unit subcut .daily AM diabetes 10/05/24 10/05/24 History 70-30 mix 100 unit/mL subcutaneous susp (Humulin 70/30 U-100 Insulin) omeprazole 20 mg capsule,delayed 20 mg PO DAILY heartburn 10/05/24 10/05/24 History release propranolol 20 mg tablet 20 mg PO BID blood pressure 10/05/24 10/05/24 History Allergy/AdvReac Type Severity Reaction Status Date / Time No Known Allergies Allergy Verified 10/05/24 11:37 Surgical History History of partial amputation of toe of right foot h/o appendectomy Social History Smoking Status: Never smoker Physical Exam Const alert and no apparent distress General Appearance: cooperative HEENT normocephalic and head/scalp atraumatic Eyes PERRL and EOMs intact bilaterally Neck supple and No nodes Resp normal air movement and clear to auscultation bilaterally Cardio regular rate and regular rhythm GI soft to palpation, non-tender and non-distended Extremity General Extremity: no tenderness to palpation of joints or extremities Skin Skin Narrative: Reviewed wound photos. RLE redness receding. Neuro CN's II-XII intact bilaterally Lab / Micro Data Attestation: I reviewed the patient's lab results. 10/09/24 04:47 10/09/24 04:47 Labs: Laboratory Results - last 24 hr 10/08/24 11:38: POC Glucose 314 H 10/08/24 16:37: POC Glucose 215 H 10/08/24 21:20: POC Glucose 219 H 10/09/24 04:47: WBC 9.3, RBC 4.56 L, Hgb 14.1, Hct 41.3, MCV 90.6, MCH 30.9, MCHC 34.1, RDW Std Deviation 41.5, RDW Coeff of Brant 12.6, Plt Count 233, MPV 10.4, Immature Gran % (Auto) 0.600, Neut % (Auto) 71.1 H, Lymph % (Auto) 13.4 L, [place] % (Auto) 12.0 H, Eos % (Auto) 2.6, Baso % (Auto) 0.3, Absolute Neuts (auto) 6.6, Absolute Lymphs (auto) 1.25, Nucleated RBC % 0, Sodium 141, Potassium 3.2 L, Chloride 106, Carbon Dioxide 24.0, Anion Gap 11, BUN 27 H, Creatinine 1.01, Estim Creat Clear Calc 81.72, Est GFR (MDRD) Non-Af 79, BUN/Creatinine Ratio 26.2 H, Glucose 159 H, Calcium 8.6 10/09/24 06:36: POC Glucose 154 H 10/09/24 11:28: POC Glucose 256 H
[2024-10-09 14:15] VITALS: BP 139/75; PULSE 73; RESP 16; TEMP 36.6; O2SAT 99
[2024-10-09] MEDS: Polyethylene Glycol 3350 17 GM PACKET PO (14:18)
[2024-10-09 20:12] VITALS: BP 157/92; PULSE 82; RESP 18; TEMP 36.6; O2SAT 100
[2024-10-09] MEDS: CHLORHEXIDINE GLUC 2% CLOTH 1 EACH TOWELETTE TOPICAL (21:30)
[2024-10-10] VITALS (14 sets, daily range): BP systolic 80–167; BP diastolic 55–88; PULSE 61–86; RESP 15–18; TEMP 36.1–36.9; O2SAT 93–98; BMI 33.4
--- NOTE | 2024-10-10 05:55 | EKG12_ITS ---
Test Reason : PRE-OP Blood Pressure : */* mmHG Vent. Rate : 75 BPM Atrial Rate : 75 BPM P-R Int : 202 ms QRS Dur : 108 ms QT Int : 406 ms P-R-T Axes : 21 66 41 degrees QTcB Int : 453 ms Normal sinus rhythm Normal ECG When compared with ECG of 09-Nov-2022 11:50, Vent. rate has increased by 26 bpm Questionable change in QRS axis QT has lengthened Confirmed by ESAU RAYGOZA ([id number]), senior editor GALO LLANES ([id number]) on 10/11/2024 5:46:04 AM Referred By: DIPIKA Confirmed By: ESAU RAYGOZA
[2024-10-10 07:27] LABS: Hematocrit 41.7 % (40-54); Hemoglobin 14.2 g/dL (13.0-16.5); Immature Granulocytes Count 0.060 X10^3/uL (0.0-0.0); Mean Corp Hgb Conc 34.1 g/dL (32-36); Mean Corpuscular Volume 90.7 fL (80-94); Mean Platelet Vol. 10.7 fl (6.2-12.0); NRBC Flagged by Analyzer 0 % (0-5); Platelet Count 260 K/mm3 (150-450); RBC Distribution Width CV 12.4 % (11.6-14.6); RBC Distribution Width SD 41.0 fl (35.1-43.9); Red Blood Count 4.60 M/mm3 (4.6-6.2); White Blood Count 7.8 K/mm3 (4.4-11.0)
--- NOTE | 2024-10-10 07:56 | PCM.PN.HOSP ---
Reason for Visit Chief Complaint: Right foot/ankle pain and swelling and generalized weakness Subjective Subjective No new complaints. States that his right leg is feeling better. Objective Data Objective Data Vital Signs: Vital Signs Temp Pulse Resp BP Pulse Ox O2 Del Method 36.4 C L 64 18 147/85 H 96 Room Air 10/10/24 02:15 10/10/24 02:15 10/10/24 02:15 10/10/24 02:15 10/10/24 02:15 10/10/24 03:00 Oxygen Delivery Method Room Air Weight: 108.8 kg Body Mass Index (BMI) 33.4 Intake & Output: Intake and Output for Last 24 Hours 10/08/24 10/09/24 10/10/24 23:59 23:59 23:59 Intake Total 550 / 550 1200 / 1200 275 / 275 Output Total 350 / 350 1500 / 1500 Balance 200 / 200 -300 / -300 275 / 275 Lab / Micro Data 10/10/24 06:05 10/10/24 06:05 Labs: Laboratory Results - last 24 hr 10/09/24 11:28: POC Glucose 256 H 10/09/24 16:06: POC Glucose 225 H 10/09/24 21:25: POC Glucose 142 H 10/10/24 06:05: WBC 7.8, RBC 4.60, Hgb 14.2, Hct 41.7, MCV 90.7, MCH 30.9, MCHC 34.1, RDW Std Deviation 41.0, RDW Coeff of Brant 12.4, Plt Count 260, MPV 10.7, Immature Gran % (Auto) 0.800, Neut % (Auto) 73.6 H, Lymph % (Auto) 10.7 L, [place] % (Auto) 10.7 H, Eos % (Auto) 3.8, Baso % (Auto) 0.4, Absolute Neuts (auto) 5.8, Absolute Lymphs (auto) 0.84, Nucleated RBC % 0 Radiography Diagnostic Testing: Radiology Impression Venous Doppler Study 10/09/24 13:36 Interpretation Summary Deep veins of the right lower extremity are patent and compressible segmentally. There is no evidence of right lower extremity deep vein thrombosis. Valvular competence appears intact within the proximal deep venous system on the right . The right great saphenous vein appears patent and compressible segmentally. The left common femoral vein is patent and compressible . Ordering Physician: Ryne Steward Referring Physician: Rich Foy Performed By: Kiesha Shah RVT Physical Exam Const alert and no apparent distress HEENT head/scalp atraumatic and moist oral mucous membranes Resp normal respiratory effort and no retractions Extremity Extremity Narrative: Edema right lower extremity but nonpitting. Seems less pronounced than on the . Still has the lesion on the distal right third toe. Overall erythema seems to be improving. Neuro Sensorium / Orientation: awake, alert, oriented to person and oriented to place Psych affect normal Assessment & Plan Assessment/Plan (1) Cellulitis of leg, right: PLAN: On IV vancomycin Began today after debridement of his left third toe. Concerned that the third toe could be the nidus of the infection. MRI showed osteomyelitis of right 3rd toe. Podiatry following, planning on right foot 3rd digit amputation today. Duplex of RLE given the edema showed no DVT. Culture showing MRSA from September 10 (2) Debility: PLAN: requires much assistance for ambulation and this will be further complicated by surgery and off-loading, additionally complicated by Parkinson's disease Plan for SNF when medically stable. PLAN: Plan Chronic conditions: DM2: glargine and SSI. resume empagliflozin as outpt. parkinson's disease: carbidopa/levodopa BPH: flomax VTE prophylaxis: LMWH. Disposition: To be determined. Charges/Coding Visit Charges Inpatient E&M: 52551 Subs Hosp L2
[2024-10-10] MEDS: Cholecalciferol (VIT D3) 25 MCG TABLET (1,000 UNITS) 50 MCG PO (08:06)
[2024-10-10] MEDS: Polyethylene Glycol 3350 17 GM PACKET PO (08:07)
[2024-10-10 08:09] LABS: Anion Gap 13 (5-15); BUN 27 mg/dL (4-19); BUN/Creat Ratio 25.3 RATIO (10-20); Calcium,Total 8.6 mg/dL (7.6-11.0); Carbon Dioxide 24.4 mmol/L (21.0-32.0); Chloride 103 mmol/L (98-108); Estimated Creatinine Clearance 78.61 ml/min (50-250); Glucose 144 mg/dL (70-99); Potassium 3.5 mmol/L (3.3-5.1)
--- NOTE | 2024-10-10 11:30 | RAD_ITS ---
PROCEDURE: FOOT 2 VIEWS; O.R. FLUORO FOR C-ARM 10/10/2024 REASON FOR EXAM: RT 3RD TOE AMPUTATION TECHNIQUE: FOOT 2 VIEWS; O.R. FLUORO FOR C-ARM Laterality: Right Fluoroscopy time: 4 seconds. COMPARISON: Right foot study 10/05/2024 RAD/O.R. Fluoro for C-Arm IMPRESSION: Intraoperative fluoroscopy was performed for amputation of the right 3rd toe. 2 fluoroscopic images are also obtained. Reading Location: [place] [id number]
--- NOTE | 2024-10-10 11:30 | RAD_ITS ---
PROCEDURE: FOOT 2 VIEWS; O.R. FLUORO FOR C-ARM 10/10/2024 REASON FOR EXAM: RT 3RD TOE AMPUTATION TECHNIQUE: FOOT 2 VIEWS; O.R. FLUORO FOR C-ARM Laterality: Right Fluoroscopy time: 4 seconds. COMPARISON: Right foot study 10/05/2024 RAD/Foot 2 Views IMPRESSION: Intraoperative fluoroscopy was performed for amputation of the right 3rd toe. 2 fluoroscopic images are also obtained. Reading Location: [place] [id number]
[2024-10-10] MEDS: Lactated Ringers 1,000 ML 15 ML IV (11:40)
--- NOTE | 2024-10-10 11:53 | PRE.ANES_ITS ---
ASA Classification* ASA Classification ASA Classification: 3 Assessment & Plan Anesthesia* Anesthesia Assessment Anesthesia Assessment: Discussed sedation and/or anesthesia options, risks, benefits, and alternatives with patient/parents/legal guardian/POA. Questions invited. The patient/parents/legal guardian/POA seems to understand and agrees to proceed with anesthesia plan. Reviewed the physical assessment, medical history, allergy history and patient home medications list prior to surgery/procedure/anesthetic and documented any changes. Performed airway and anesthesia risk assessments. Anesthesia Type Anesthesia Type: MAC History Source History Obtained from:: Patient and Chart Anesthesia Focused Assessment* Temperature: 98.4 F Pulse Rate: 86 Blood Pressure: 167/88 Respiratory Rate: 18 Pulse Ox: 94 Oxygen Delivery Method: Room Air Airway Assessment Mouth opens: >3 cm Mallampati Score: IV Teeth Condition: Dentures (Now full upper plate is out.) and Missing (Edentulous on the bottom.) Neck Range of motion (ROM): Limited ROM (Severe Restriction) Labs Anesthesia Preop lab: CBC WBC 7.8 K/mm3 (4.4-11.0) 10/10/24 06:05 10/10/24 RBC 4.60 M/mm3 (4.6-6.2) 10/10/24 06:05 10/10/24 Hgb 14.2 g/dL (13.0-16.5) 10/10/24 06:05 10/10/24 Hct 41.7 % (40-54) 10/10/24 06:05 10/10/24 Plt Count 260 K/mm3 (150-450) 10/10/24 06:05 10/10/24 CHEMISTRY Potassium 3.5 mmol/L (3.3-5.1) 10/10/24 06:05 10/10/24 Sodium 140 mmol/L (133-145) 10/10/24 06:05 10/10/24 BUN 27 mg/dL (4-19) H 10/10/24 06:05 10/10/24 Creatinine 1.05 mg/dL (0.70-1.20) 10/10/24 06:05 10/10/24 Glucose 144 mg/dL (70-99) H 10/10/24 06:05 10/10/24 POC Glucose 121 mg/dL (74-106) H 10/10/24 08:03 10/10/24 COAG PT 13.6 SECONDS (11.7-14.9) 11/09/22 11:50 Pre-Assessment Diagnosis/Proposed Procedure Planned Operative Procedure(s): Amputation right third toe Anesthesia History Anesthesia History - braid pattern setter: Anesthesia History - braid pattern setter Hx Hospitalization Any Problems With Anesthesia No 10/09/24 20:14 Cholinesterase deficiency No 10/09/24 20:14 You/Your Family Experience No 10/09/24 20:14 fever (hyperthermia) with Relationship Recent Exposure to Contagious Disease Does patient have nerve No 10/09/24 20:14 stimulator Patient instructed to have device shut off --Does patient have Pacemaker No 10/10/24 10:32 or ICD? When Was Last Pacemaker Check QUESTION #4 FULL TEXT: You/Your Family Experience fever (hyperthermia) with Anesthesia Last Oral Intake Last Oral intake: Last Oral Intake NPO since 00:00 10/10/24 10:32 Meds taken in AM with sips of Yes 10/10/24 10:32 water? Meds patient instructed to see MAR 10/10/24 10:32 take am of surgery PONV PONV - braid pattern setter: PONV - braid pattern setter Female HX of Motion Sickness HX of N/V After Surgery Non-Smoker Duration of Surgery greater than 60 minutes Number of Risk Factors PONV Score Height & Weight Height & Weight: Anesthesia: Height & Weight Height 5 ft 11 in 10/10/24 10:32 Weight: 108.8 kg 10/10/24 10:32 Body Mass Index (BMI) 33.4 10/10/24 10:32 Respiratory Assessment Respiratory Assessment - braid pattern setter: Respiratory Tract Infection Hx - braid pattern setter Hx Respiratory Tract Infection No 10/09/24 20:14 STOP Sleep Apnea STOP Sleep Apnea - braid pattern setter: STOP Sleep Apnea - braid pattern setter Hx Hypertension Yes 10/06/24 10:47 Hx Sleep Apnea No 10/05/24 15:38 CPAP BIPAP Do you snore loudly (louder No 10/05/24 15:38 than talking or can be heard Do you often feel tired/ No 10/05/24 15:38 fatigued/ sleepy during daytime? Has anyone observed you stop No 10/05/24 15:38 breathing during sleep? STOP Results Negative 10/05/24 15:38 QUESTION #5 FULL TEXT : Do you snore loudly (louder than talking or can be heard through closed doors)? 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 Specify any problems Hx of Preganancy in last 3 N/A 10/05/24 15:38 Months Nurse Filling Out [facility] [place] 10/05/24 15:38 & Questions: Date: 10/05/24 10/05/24 15:38 Time: 16:17 10/05/24 15:38 Patient unable to answer at this time (ie. confused, unrespo /Reproduction History /Reproductive History - braid pattern setter: /Reproductive Hx- braid pattern setter Hx Now No 10/09/24 20:14 Gestational Age (in weeks): EDC: Hx Hx Para Hx Section SAB No 10/09/24 20:14 Active Medications Active Medications: Current Medications Generic Name Dose Route Start Last Admin Trade Name Yael PRN Reason Stop Dose Admin Acetaminophen 1,000 mg 10/09/24 14:00 10/10/24 05:42 Acetaminophen 500 Mg Tablet PO 1,000 mg Q8 LINO Administration Carbidopa/Levodopa 2 tablet 10/05/24 16:00 10/10/24 08:06 Carbidopa/Levodopa 25/250 Tablet PO 2 tablet BIDAC LINO Administration Cholecalciferol 50 mcg 10/06/24 10:00 10/10/24 08:06 Cholecalciferol (Vit D3) 25 Mcg Tablet (1,000 Units) PO 50 mcg DAILY LINO Administration Cyclobenzaprine HCl 10 mg 10/05/24 15:38 10/09/24 07:56 Cyclobenzaprine Hcl 10 Mg Tablet PO 10 mg TID PRN Administration MUSCLE SPASM Enoxaparin Sodium 40 mg 10/06/24 10:00 10/10/24 08:10 Enoxaparin 40 Mg/0.4 Ml Syringe SC Not Given DAILY LINO Gabapentin 100 mg 10/05/24 22:00 10/10/24 05:43 Gabapentin 100 Mg Capsule PO 100 mg Q8H LINO Administration Glucagon 1 mg 10/05/24 15:38 Glucagon 1 Mg/Ml Syringe IM X1 PRN Hypoglycemia Protocol Vancomycin IV-PHARMACY TO DOSE 500 mls @ 250 mls/hr 10/05/24 15:38 1 each/ Sodium Chloride IV X1 PRN Rx to Dose Protocol Dextrose 250 mls @ 0 mls/hr 10/05/24 15:38 Dextrose 10%-Water IV .Q0M PRN HYPOGLYCEMIA Protocol As Directed Sodium Chloride 250 mls @ 15 mls/hr 10/05/24 20:34 10/09/24 07:00 IV Infused .[id number] PRN Infusion Saline Flush Sodium Chloride 250 mls @ 15 mls/hr 10/05/24 20:34 IV .[id number] PRN Additional IVPB Infusion Vancomycin HCl 1,250 mg/ 275 mls @ 167 mls/hr 10/07/24 00:00 10/10/24 01:25 Sodium Chloride IV Infused Q12H LINO Infusion Lactated Ringer's 1,000 mls @ 15 mls/hr 10/10/24 11:30 10/10/24 11:40 IV 15 mls/hr .Q48H LINO Administration Insulin Glargine 15 unit 10/05/24 22:00 10/10/24 09:47 Insulin Glargine-Yfgn 100 Unit/Ml Pen SC Not Given BID [facility] Insulin Human Lispro 0 unit 10/05/24 16:00 10/10/24 08:05 Insulin Lispro 100 Unit/Ml Insuln.Pen SC Not Given ACHS [facility] Protocol Melatonin 3 mg 10/05/24 15:38 10/09/24 00:40 Melatonin 3 Mg Tablet PO 3 mg QHS PRN PRN Administration INSOMNIA Ondansetron HCl 4 mg 10/05/24 15:38 Ondansetron 4 Mg/2 Ml Vial IV Q8H PRN PRN NAUSEA/VOMITING Oxycodone HCl 5 mg 10/09/24 09:30 10/09/24 13:42 Oxycodone 5 Mg Tablet PO 5 mg Q4H PRN PRN Administration Pain Score 1-10 Pantoprazole Sodium 20 mg 10/06/24 10:00 10/10/24 08:06 Pantoprazole Sodium 20 Mg Tablet PO 20 mg DAILY LINO Administration Polyethylene Glycol 17 gm 10/09/24 14:00 10/10/24 08:07 Polyethylene Glycol 3350 17 Gm Packet PO 17 gm DAILY LINO Administration Pravastatin Sodium 20 mg 10/05/24 22:00 10/09/24 21:27 Pravastatin 20 Mg Tablet PO 20 mg QHS ILNO Administration Propranolol HCl 20 mg 10/05/24 22:00 10/10/24 08:06 Propranolol 10 Mg Tablet PO 20 mg BID LINO Administration Sodium Chloride 10 - 40 ml 10/05/24 16:21 10/09/24 13:42 0.9% Saline Lock 10 Ml Syringe IV 10 ml UD PRN Administration SALINE FLUSH Tamsulosin HCl 0.4 mg 10/06/24 17:30 10/09/24 17:27 Tamsulosin Hcl 0.4 Mg Capsule PO 0.4 mg Q24H LINO Administration Vancomycin Protocol 1 lab 10/10/24 10:30 10/10/24 10:38 Vancomycin Trough/Random Due MC 10/10/24 12:30 Not Given DAILY LINO PFSH Medical History Parkinson disease Hypertension Diabetes Home Medications ?Medication ?Instructions ?Recorded ?Last Taken ?Type carbidopa 25 mg-levodopa 250 mg 2 tab PO BID parkinson s 03/10/20 10/05/24 History tablet glimepiride 4 mg tablet 4 mg PO DAILY diabetes 03/1010/05/24 History lisinopril 20 1 tab PO DAILY blood pressur e 03/10/20 10/05/24 History mg-hydrochlorothiazide 25 mg tablet tamsulosin 0.4 mg capsule 0.4 mg PO Q24H retention 10/05/24 History cholecalciferol (vitamin D3) 50 50 mcg PO DAILY supple ment 11/09/22 10/05/24 History mcg (2,000 unit) tablet empagliflozin 25 mg tablet 25 mg PO DAILY diabetes 10/05/24 History (Jardiance) gabapentin 100 mg capsule 100 mg PO Q8H pain/neurapath y 11/09/22 10/05/24 History pravastatin 20 mg tablet 20 mg PO DAILY cholesterol 0 11/09/22 10/04/24 History cyclobenzaprine 10 mg tablet 10 mg PO TID pain 5 10/05/24 History doxycycline monohydrate 100 mg 100 mg PO BID infection 10/05/24 10/05/24 History capsule insulin NPH-regular 70-30 U-100 20 unit subcut .daily HS diabetes 10/05/24 10/04/24 History insulin 100 unit/mL subcutaneous pen (Novolin 70-30 FlexPen U-100 Insulin) insulin human U-100 NPH-regulr 30 unit subcut .daily A M diabetes 10/05/24 10/05/24 History 70-30 mix 100 unit/mL subcutaneous susp (Humulin 70/30 U-100 Insulin) omeprazole 20 mg capsule,delayed 20 mg PO DAILY heartb urn 10/05/24 10/05/24 History release propranolol 20 mg tablet 20 mg PO BID blood pressure 10/05/24 10/05/24 History Allergy/AdvReac Type Severity Reaction Status Date / Time No Known Allergies Allergy Verified 10/10/24 11:37 Surgical History History of partial amputation of toe of right foot h/o appendectomy Social History Smoking Status: Never smoker Review of Systems (Anesthesia) ROS Narrative System reviewed and no additional complaints, except as documented.
--- NOTE | 2024-10-10 11:54 | PCM.PROGNOTE ---
Subjective Subjective Patient seen prior to surgical intervention. He is willing to proceed forward with the third digit amputation this afternoon. Denies constitutional symptoms. Denies further complaints at this time. Objective Data Objective Data Vital Signs: Vital Signs Temp Pulse Resp BP Pulse Ox O2 Del Method 98.4 F 86 18 167/88 H 94 Room Air 10/10/24 07:55 10/10/24 07:55 10/10/24 07:55 10/10/24 07:55 10/10/24 07:55 10/10/24 07:55 Oxygen Delivery Method Room Air Weight: 108.8 kg Body Mass Index (BMI) 33.4 Intake & Output: Intake and Output for Last 24 Hours 10/08/24 10/09/24 10/10/24 23:59 23:59 23:59 Intake Total 550 / 550 1200 / 1200 275 / 275 Output Total 350 / 350 1500 / 1500 Balance 200 / 200 -300 / -300 275 / 275 Lab / Micro Data 10/10/24 06:05 10/10/24 06:05 Labs: Laboratory Results - last 24 hr 10/09/24 11:28: POC Glucose 256 H 10/09/24 16:06: POC Glucose 225 H 10/09/24 21:25: POC Glucose 142 H 10/10/24 06:05: WBC 7.8, RBC 4.60, Hgb 14.2, Hct 41.7, MCV 90.7, MCH 30.9, MCHC 34.1, RDW Std Deviation 41.0, RDW Coeff of Brant 12.4, Plt Count 260, MPV 10.7, Immature Gran % (Auto) 0.800, Neut % (Auto) 73.6 H, Lymph % (Auto) 10.7 L, Swisher % (Auto) 10.7 H, Eos % (Auto) 3.8, Baso % (Auto) 0.4, Absolute Neuts (auto) 5.8, Absolute Lymphs (auto) 0.84, Nucleated RBC % 0, Sodium 140, Potassium 3.5, Chloride 103, Carbon Dioxide 24.4, Anion Gap 13, BUN 27 H, Creatinine 1.05, Estim Creat Clear Calc 78.61, Est GFR (MDRD) Non-Af 75, BUN/Creatinine Ratio 25.3 H, Glucose 144 H, Calcium 8.6 10/10/24 08:03: POC Glucose 121 H Radiography Diagnostic Testing: Radiology Impression Venous Doppler Study 10/09/24 13:36 Interpretation Summary Deep veins of the right lower extremity are patent and compressible segmentally. There is no evidence of right lower extremity deep vein thrombosis. Valvular competence appears intact within the proximal deep venous system on the right . The right great saphenous vein appears patent and compressible segmentally. The left common femoral vein is patent and compressible . Ordering Physician: Ryne Steward Referring Physician: Rich Foy Performed By: Kiesha Shah RVT Physical Exam Const alert, oriented x3 and no apparent distress General Appearance: cooperative HEENT normocephalic Eyes Eyes Narrative: Wears glasses General Eye: normal appearance of both eyes Neck General: normal visual inspection Lymph Lymphatic: no lymphadenopathy noted and no lymphedema noted Resp normal respiratory effort Cardio regular rate and regular rhythm Extremity no calf tenderness Extremity Narrative: Bilateral lower extremity: Vascular: DP and PT pulses weakly palpable. CFT less than 5 seconds to the digits. Normal temperature gradient. Hair growth is diminished to digits and foot Neurologic: Gross sensation is intact. 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 Negative Jaramillo sign, negative Homans' sign. Pain to palpation about the lateral ankle, anterior ankle, and medial ankle right lower extremity. Dermatological: There is erythema about the ankle to just above the ankle mortise/distal tibia right lower extremity. This has receded from the previous line of demarcation consistent with improving cellulitis. Third digit partial amputation of the right foot demonstrates superficial wound at the most distal stump. There is no surrounding erythema of the digit or foot, no purulent drainage from the digit site, no foul odor noted. No pain to palpation of the digit. Skin no rashes or lesions noted Neuro moves all extremities Assessment & Plan Assessment/Plan (1) Osteomyelitis of right foot: QUALIFIERS: Osteomyelitis type: subacute Qualified Code(s): M86.271 - Subacute osteomyelitis, right ankle and foot (2) Non-pressure chronic ulcer of other part of right foot with fat layer exposed: (3) Cellulitis of right foot: (4) Debility: PLAN: Plan Patient seen and evaluated I have reviewed previous radiographs of the right foot and ankle from 10/05/2024 and concur with radiographic read. Third digit wound of the right foot appears stable and noninfected with superficial ulceration appreciated at the distal tuft of the amputation stump. Cellulitis has improved in the right lower extremity with erythema mostly about the ankle at this present time. WBC currently 7.8 On 10/05/2024 ESR noted to be elevated at 251 and ESR at 37 MRI was obtained 10/07/2024 demonstrating likely osteomyelitis of the remaining osseous structures of the middle and distal phalanx of the third digit of the right foot. I have reviewed imaging osteomyelitis is questionable however given concern over any recurrence and for definitive treatment patient is agreeable to amputation of the third digit. Culture did demonstrate MSRA Currently on IV vancomycin Medicine team following for medical management, they are greatly appreciated. I discussed with the patient performing third digit amputation of the right foot. He is agreeable to this. Discussed the risks and complications of the procedure. Discussed postoperative postoperative care with patient at bedside this morning. Discussed his risks include but are not limited to the following: Pain, continued pain, phantom pain, complex regional pain syndrome, neuritis/numbness, swelling, scarring, poor cosmetic result, infection, dehiscence, nonhealing/delayed healing, need for further surgery/procedure, digital deformity secondary to the amputation of the surrounding digits, difficulty wearing shoe gear, difficulty with ambulation, inability to wear shoe gear, addiction to pain medication, stroke, bleeding, heart attack, loss of function, loss of limb, loss of life. Patient is understanding of these and was able to repeat these back. Patient wishes to proceed forward with the surgical intervention for definitive treatment. Surgical consent to be obtained. No promises were given. No guarantees were made. Patient to be consented for third digit amputation of the right foot. Patient will be n.p.o. after midnight Surgical intervention planned for 10/10/2024 at 12:30 PM Patient is ready to proceed forward with the surgical intervention today Will continue to follow while in house. Reach out to Dr. Davis for any questions or concerns. [facility] [phone]
[2024-10-10 12:03] LABS: Vancomycin, Trough Level 16.5 ug/mL (5.0-15.0)
--- NOTE | 2024-10-10 12:07 | CASEMGMT ---
Addendum entered by Jared Alberto 10/10/24 12:10: Pt is off of the floor for surgery. Pt's notified. Original Note: TCU staffing coordinator states that they will be able to accept the pt once medically ready and will follow the pt s/p surgery.
--- NOTE | 2024-10-10 12:29 | PCM.RX.CS ---
Consult Antibiotic Management Pharmacy has been consulted to manage selected antibiotic: Vancomycin Type of Intervention Type of Consult: Follow-up Suspected Infection Suspected Infection: Skin/Soft tissue Labs Labs: Sodium 140 mmol/L (133-145) 10/10/24 06:05 Potassium 3.5 mmol/L (3.3-5.1) 10/10/24 06:05 Chloride 103 mmol/L (98-108) 10/10/24 06:05 Carbon Dioxide 24.4 mmol/L (21.0-32.0) 10/10/24 06:05 Anion Gap 13 (5-15) 10/10/24 06:05 BUN 27 mg/dL (4-19) H 10/10/24 06:05 Creatinine 1.05 mg/dL (0.70-1.20) 10/10/24 06:05 Est GFR (MDRD) Non-Af 75 (>60) 10/10/24 06:05 BUN/Creatinine Ratio 25.3 RATIO (10-20) H 10/10/24 06:05 Glucose 144 mg/dL (70-99) H 10/10/24 06:05 Vancomycin Trough 16.5 ug/mL (5.0-15.0) H 10/10/24 11:12 Microbiology Microbiology: MRSA in wound culture Estimated Creatinine Clearance Estimated Creatinine Clearance: 78.6 Goal Trough Goal Trough: 10-15 mcg/mL Pharmacy Plan for Drug Dosing Pharmacy Plan for Drug Dosing: Pharmacy Service will continue to monitor and adjust dosing as required. VANCOMYCIN LEVEL RECEIVED Current Vancomycin Dose: 1250 mg Q12H Number of Doses Received: 7 Vancomycin Level: 16.5 (goal 10-15) Hours Since Last Dose: 11.5 Renal Function: SCr: 1.01, CrCl: 78.6 Renal Function Trend: Improving Vancomycin Plan/Comments: Decreasing dose to 1000 mg Q12H with first dose 10/10 @ 1400 Pending Level: 10/12/24 @ 0130 Date/Time Labs Ordered Labs to be done on [date and time ordered]: 10/12/24 @ 0130
--- NOTE | 2024-10-10 12:30 | AMP_PTH ---
PATIENT: AMBROCIO JEFFERS LOC: [facility]3 U#:[id number] AGE/SX: 74/M ROOM: [facility] [place] RE10/05/[address]: Dr. Ryne Steward DO : 1950 BED: 1 DIS: 10/11/2024 SPEC #: [id number] RECD: 10/10/24 14:12 STATUS: MELONIE FERNY #: [id number] JAXSON: 10/10/24 12:[address]: Rich Davis DEPT: SURGICAL PATHOLOGY RECD BY: Buddy Wright ENTERED: 10/11/24 10:14 SP TYPE: Amputation OTHR DR: Dr. Stephen Deal, DO Dr. Ryne Steward, DO Dr. Rich Foy, MD Dr. Ever Garcia Dr., MD Tissues: A - Toe, NOS Procedures: Decalcification bone/plaque Surgery Specimen Level IV HEADER OPERATION: Amputation toe, right 3rd PRE-OP DIAGNOSIS: Osteomyelitis of right foot, non-pressure chronic ulcer of other part of right foot with fat layer exposed, cellulitis of right foot, debility TISSUE SUBMITTED: A- Proximal phalanx MICROSCOPIC DIAGNOSIS A. Bone, right proximal phalanx, amputation: * Chronic osteomyelitis with serous fat necrosis of the marrow MICROSCOPIC DESCRIPTION Slides are reviewed. GROSS DESCRIPTION A. Received in formalin labeled with the patient's name and date of . Designated as proximal phalanx is a 1.4 x 1.1 x 1.1 cm irregular piece of bone with attached soft tissue. The articular cartilage is grover and somewhat granular with a 0.6 cm in length linear defect. Sections have yellow-red, trabeculated and somewhat brittle medullary bone. Rn Clinical Research sections are submitted in 1 cassette, following decalcification. AK 10/11/2024 CPT:[id number]
[2024-10-10] MEDS: Lidocaine 1% (5 ml sdv) 5 ML Vial IV (12:50)
[2024-10-10] MEDS: Midazolam 2 MG/2 ML Syringe IV (12:50)
[2024-10-10] MEDS: fentaNYL 100 MCG/2 ML Ampul 50 MCG IV (12:51)
[2024-10-10] MEDS: Lidocaine 1% (30 ml sdv) 30 ML Vial (13:32)
--- NOTE | 2024-10-10 13:42 | PCM.OPRPT ---
Problems Associated Problem List Diagnoses (1) Osteomyelitis of right foot: (2) Cellulitis of leg, right: (3) Non-pressure chronic ulcer of other part of right foot with fat layer exposed: Operative Report (Standard) Operative Information Date of Procedure: 10/10/24 Pre-Operative Diagnosis: 1. Osteomyelitis third digit right foot 2. Cellulitis right lower extremity Post-Operative Diagnosis: 1. Osteomyelitis third digit right foot 2. Cellulitis right lower extremity Surgery/Procedure Performed: 1. Amputation third digit at the MTPJ right foot rn anesthesiology: No Type of Anesthesia: Local (20 cc one-to-one mixture of 1% lidocaine plain 0.5% Marcaine plain) and MAC RN Documented Start/Stop Times: Operation Date: 10/10/24 12:30 Case Time Into Pre-Op 10/10/24 11:25 Anesthesia Start 10/10/24 12:40 Into Room 10/10/24 12:40 Procedure Start 10/10/24 13:07 Procedure End 10/10/24 13:36 Anesthesia End 10/10/24 13:45 Out of Room 10/10/24 13:45 Into Recovery 10/10/24 13:47 Out of Recovery 10/10/24 14:45 Procedure Start Time: 13:07 Procedure Stop Time: 13:36 Select all DRAINS/GRAFTS/IMPLANTS that apply: None Estimated Blood Loss: < 3 mL Specimen collected: Yes Description of specimen(s) removed: Distal phalanx bone to micro Tissue third digit right foot to micro Proximal phalanx pathology Description of surgery: HPI/indication: Patient is a 74-year-old male who has been following with Dr. Morgan and had previously undergone partial distal Symes amputation of the third digit right foot. He did develop a new ulceration to the remaining distal tuft of the third digit and has been following for local wound care/serial debridement with Dr. Morgan. Most recent debridement was on 10/01/2024 in office and patient subsequently developed some redness about the ankle 2 days later and was placed on oral doxycycline. Patient also admits to falling that same day prior to starting the oral medication as he does have history of Parkinson's. Does utilize a walker for assistance. Due to continued redness about the ankle and leg they did present to the ED at [facility] on 10/05/2024 and were started on IV vancomycin and admitted under medicine. Radiographs were negative of the foot and ankle for acute osseous pathology. These were reviewed by myself and I do concur with the radiographic read. Due to continued redness MRI was ordered of the foot demonstrating suspicion of osteomyelitis of the remaining portion of the distal tuft, middle phalanx, and head of the proximal phalanx of the third digit and thus podiatry is consulted for further evaluation and possible surgical intervention. I did discuss with the patient and his his condition with suspicion of bone infection in the third digit that it would be best to undergo amputation given his continued open wound at the distal tuft. They were in agreement with the procedure selection and are prepared for surgical intervention. Discussed the risks and complications of the procedure. Discussed postoperative postoperative care with patient at bedside this morning. Discussed his risks include but are not limited to the following: Pain, continued pain, phantom pain, complex regional pain syndrome, neuritis/numbness, swelling, scarring, poor cosmetic result, infection, dehiscence, nonhealing/delayed healing, need for further surgery/procedure, digital deformity secondary to the amputation of the surrounding digits, difficulty wearing shoe gear, difficulty with ambulation, inability to wear shoe gear, addiction to pain medication, stroke, bleeding, heart attack, loss of function, loss of limb, loss of life. Patient is understanding of these and was able to repeat these back. Patient wishes to proceed forward with the surgical intervention for definitive treatment. Surgical consent signed freely. No promises were given. No guarantees were made. He was set to undergo amputation of the third digit of the right foot at [facility] on 10/10/2024 Procedure: Under mild sedation patient was brought to the operating placed on table in supine position and secured to table with safety belt. Following IV sedation a blanket bump was placed under the patient's left hip and left foot was elevated via a blanket bump. A pneumatic ankle tourniquet was placed about the patient's right ankle. A local anesthetic block was then performed about the third ray proximal to the amputation site consisting of 20 cc of a one-to-one mixture of 1% lidocaine plain and 0.5% Marcaine plain. Foot was then scrubbed, prepped, and draped in usual aseptic manner. Right foot was then elevated and pneumatic ankle tourniquet was inflated to 250 mmHg. At this time attention was directed to the third digit of the right foot where fluoroscopic imaging was obtained demonstrating presence of the third digit and confirmation of the surgical site. Incision was then made overlying the head of the third metatarsal approximately and carried distally onto the base of the proximal phalanx as a racquet shaped incision. Incision was deepened straight to bone and the third metatarsophalangeal joint was identified and the digit was transected at the metatarsophalangeal joint. No purulent drainage was noted during dissection and digit amputation. Digit was then transferred from the surgical field to the table in toto. On the table the distal phalanx was dissected free from the soft tissue and was noted to be discolored indicating acute osteomyelitis this was sent to microbiology for culture. There was some scant tissue purulence, which was white in color, at the most distal tuft near the portion of bone which was sent for culture. This tissue was transected and also sent to microbiology for culture. The base of the proximal phalanx was transected utilizing a bone cutter and piece was sent to pathology for analysis. Head of the third metatarsal was examined and noted to be healthy in appearance with good intact shiny cartilage. Surrounding soft tissues were healthy in appearance with no evidence of necrosis. The extensor tendon to the third digit was identified and transected as far as proximal as possible. Flexor tendon of the third digit was identified and transected as far proximal as possible. Remaining portions of the third metatarsophalangeal joint capsule were dissected free and discarded per policy. Site was then flushed with copious amounts of normal sterile saline. Next, proximal to the surgical site was milked distally to evaluate for any further purulence and none was determined. Site was again flushed with copious amounts of normal sterile saline. Deep tissue was then closed utilizing 4-0 Vicryl. Subcutaneous tissues closed utilizing 4-0 Monocryl. Skin was then reapproximated utilizing 3-0 Prolene in simple interrupted fashion. At this time the pneumatic ankle tourniquet was deflated and a prompt hyperemic response was noted to the digits of the right foot. At this time final fluoroscopic imaging was obtained demonstrating amputation of the third digit of the right foot. Incision site was then dressed with Betadine soaked Adaptic, 4 x 4 gauze, Kerlix, ABD, Kerlix, and 4 inch Louis wrap rolled onto the right foot. Patient tolerated the procedure and anesthesia well was transferred to PACU vital signs stable and vascular status intact to the right foot. Once anesthesia protocol is met he will be returned to the floor and continue IV antibiotics. He is to continue to elevate the right foot at all times of rest for postoperative edema control. May apply ice behind right knee to aid in edema and postoperative pain. He is to keep all dressings clean, dry, and intact to the right foot. He is permitted protective weightbearing status to the right foot utilizing surgical shoe. Podiatry will continue to follow while in house. Surgical Findings: See operative note for findings Complications Complications: No Admit VTE Documentation VTE Present on Admission: No VTE Mechan Device Prophylaxis: SCD's VTE Pharm Prophylaxis ordered?: No Reason prophylaxis not ordered: Treatment Not Indicated
--- NOTE | 2024-10-10 13:42 | PCM.POST.ANE ---
Anesthesia: Postop Eval I Current Vital Signs Temperature: 98 F Pulse Rate: 62 Blood Pressure: 95/60 Respiratory Rate: 16 Pulse Ox: 95 Oxygen Delivery Method: Room Air Assessment Airway patent: Yes Spontaneous unlabored respirations: Yes Mental status: Awake and Calm nausea: No Vomiting: No Anesthesia Complication: No Fluid Hydration Crystalloid volume administer (ml): 600 Total IV fluid infused: 600 Progress Note Anesthesia document: Postop Eval 1 completed: Yes
--- NOTE | 2024-10-10 13:43 | NURSING ---
1400 dose vanc tubed down to AC and spoke with Angelica RN per phone to let her know it is due at 1400, Angelica states pt still in OR and she will get it to them.
[2024-10-10] MEDS: Vancomycin HCl 1,000 MG in 0.9% Normal Saline (250mL Bag) 250 ML 250 MG IV (14:10)
--- NOTE | 2024-10-10 15:01 | POSTOPAN2_ITS ---
Anesthesia Postop Eval I Sum Postop Eval Completion status Anesthesia document: Postop Eval 1 completed: Yes Anesthesia Postop Eval I Summary Anesthesia Postop Eval I Summary: Anesthesia Postop Eval I: Assessment Summary Airway patent Yes 10/10/24 13:42 LEAD INJECTION MOLD [email or web address] Spontaneous unlabored Yes 10/10/24 13:42 LEAD INJECTION MOLD [email or web address] respirations Mental status Awake,Calm 10/10/24 13:42 LEAD INJECTION MOLD [email or web address] nausea No 10/10/24 13:42 LEAD INJECTION MOLD [email or web address] Vomiting No 10/10/24 13:42 LEAD INJECTION MOLD [email or web address] Anesthesia Postop Eval I: Fluid Summary Crystalloid volume administer 600 10/10/24 13:42 LEAD INJECTION MOLD [email or web address] (ml) Colloids volume administered ( ml) Blood Product volume administered (ml) Total IV fluid infused 600 10/10/24 13:42 LEAD INJECTION MOLD [email or web address] Anesthesia Postop Eval I: Summary Notes Anesthesia Complication No 10/10/24 13:42 LEAD INJECTION MOLD [email or web address] Anesthesia Complication Comment: Post-operative progress note Anesthesia: Postop Eval II Evaluation Mental status: Awake and Calm Pain Level: 0 nausea: No Vomiting: No Complications Anesthesia Complication: No
--- NOTE | 2024-10-10 15:01 | PCM.POSTANE2 ---
Anesthesia Postop Eval I Sum Postop Eval Completion status Anesthesia document: Postop Eval 1 completed: Yes Anesthesia Postop Eval I Summary Anesthesia Postop Eval I Summary: Anesthesia Postop Eval I: Assessment Summary Airway patent Yes 10/10/24 13:42 READING [email or web address] Spontaneous unlabored Yes 10/10/24 13:42 READING [email or web address] respirations Mental status Awake,Calm 10/10/24 13:42 READING [email or web address] nausea No 10/10/24 13:42 READING [email or web address] Vomiting No 10/10/24 13:42 READING [email or web address] Anesthesia Postop Eval I: Fluid Summary Crystalloid volume administer 600 10/10/24 13:42 READING [email or web address] (ml) Colloids volume administered ( ml) Blood Product volume administered (ml) Total IV fluid infused 600 10/10/24 13:42 READING [email or web address] Anesthesia Postop Eval I: Summary Notes Anesthesia Complication No 10/10/24 13:42 READING [email or web address] Anesthesia Complication Comment: Post-operative progress note Anesthesia: Postop Eval II Evaluation Mental status: Awake and Calm Pain Level: 0 nausea: No Vomiting: No Complications Anesthesia Complication: No
--- NOTE | 2024-10-10 17:45 | PN_ITS ---
Subjective Subjective Patient was seen following the surgical intervention and is noted to be doing well in the PACU. Objective Data Objective Data Vital Signs: Vital Signs Temp Pulse Resp BP Pulse Ox O2 Del Method 97.4 F L 68 15 150/80 H 98 Room Air 10/10/24 15:00 10/10/24 15:00 10/10/24 15:00 10/10/24 15:00 10/10/24 15:00 10/10/24 15:00 Oxygen Delivery Method Room Air Weight: 108.8 kg Body Mass Index (BMI) 33.4 Intake & Output: Intake and Output for Last 24 Hours 10/08/24 10/09/24 10/10/24 23:59 23:59 23:59 Intake Total 550 / 550 1200 / 1200 595 / 595 Output Total 350 / 350 1500 / 1500 410 / 410 Balance 200 / 200 -300 / -300 185 / 185 Lab / Micro Data 10/10/24 06:05 10/10/24 06:05 Labs: Laboratory Results - last 24 hr 10/09/24 21:25: POC Glucose 142 H 10/10/24 06:05: WBC 7.8, RBC 4.60, Hgb 14.2, Hct 41.7, MCV 90.7, MCH 30.9, MCHC 34.1, RDW Std Deviation 41.0, RDW Coeff of Brant 12.4, Plt Count 260, MPV 10.7, Immature Gran % (Auto) 0.800, Neut % (Auto) 73.6 H, Lymph % (Auto) 10.7 L, [place] % (Auto) 10.7 H, Eos % (Auto) 3.8, Baso % (Auto) 0.4, Absolute Neuts (auto) 5.8, Absolute Lymphs (auto) 0.84, Nucleated RBC % 0, Sodium 140, Potassium 3.5, Chloride 103, Carbon Dioxide 24.4, Anion Gap 13, BUN 27 H, Creatinine 1.05, Estim Creat Clear Calc 78.61, Est GFR (MDRD) Non-Af 75, BUN/Creatinine Ratio 25.3 H, Glucose 144 H, Calcium 8.6 10/10/24 08:03: POC Glucose 121 H 10/10/24 11:12: Vancomycin Trough 16.5 H 10/10/24 16:23: POC Glucose 165 H Radiography Diagnostic Testing: Radiology Impression Venous Doppler Study 10/09/24 13:36 Interpretation Summary Deep veins of the right lower extremity are patent and compressible segmentally. There is no evidence of right lower extremity deep vein thrombosis. Valvular competence appears intact within the proximal deep venous system on the right . The right great saphenous vein appears patent and compressible segmentally. The left common femoral vein is patent and compressible . Ordering Physician: Ryne Steward Referring Physician: Rich Foy Performed By: Kiesha Shah RVT C-Arm Fluoroscopy 10/10/24 11:30 IMPRESSION: Intraoperative fluoroscopy was performed for amputation of the right 3rd toe. 2 fluoroscopic images are also obtained. Reading Location: [place] [address] Foot X-Ray 10/10/24 11:30 IMPRESSION: Intraoperative fluoroscopy was performed for amputation of the right 3rd toe. 2 fluoroscopic images are also obtained. Reading Location: [place] [address] Physical Exam Const alert, oriented x3 and no apparent distress General Appearance: cooperative HEENT normocephalic Eyes Eyes Narrative: Wears glasses General Eye: normal appearance of both eyes Neck General: normal visual inspection Lymph Lymphatic: no lymphadenopathy noted and no lymphedema noted Resp normal respiratory effort Cardio regular rate and regular rhythm Extremity no calf tenderness Extremity Narrative: Bilateral lower extremity: Vascular: DP and PT pulses weakly palpable. CFT less than 5 seconds to the digits. Normal temperature gradient. Hair growth is diminished to digits and foot Neurologic: Gross sensation is intact. Protective sensation is diminished secondary to diabetic peripheral polyneuropathy Musculoskeletal: Third digit amputation of the right foot noted. Negative Jaramillo sign, negative Homans' sign. Pain to palpation about the lateral ankle, anterior ankle, and medial ankle right lower extremity. Dermatological: There is erythema about the ankle to just above the ankle mortise/distal tibia right lower extremity. This has receded from the previous line of demarcation consistent with improving cellulitis. Third digit amputation of the right foot is appreciated with intact sutures overlying the amputation site. There is no surrounding erythema of the digit or foot, no purulent drainage from the digit site, no foul odor noted. No pain to palpation about the surgical site. Skin no rashes or lesions noted Neuro moves all extremities Assessment & Plan Assessment/Plan (1) Osteomyelitis of right foot: QUALIFIERS: Osteomyelitis type: subacute Qualified Code(s): M 86.271 - Subacute osteomyelitis, right ankle and foot (2) Cellulitis of leg, right: (3) Non-pressure chronic ulcer of other part of right foot with fat layer exposed: PLAN: Plan Patient seen and evaluated DOS: 10/10/2024 I have reviewed previous radiographs of the right foot and ankle from 10/05/2024 and concur with radiographic read. Sutures intact third digit amputation stump. Still is some resolving erythema about the ankle. Tenderness is improving about his ankle. WBC currently 7.8 On 10/05/2024 ESR noted to be elevated at 251 and ESR at 37 MRI was obtained 10/07/2024 demonstrating likely osteomyelitis of the remaining osseous structures of the middle and distal phalanx of the third digit of the right foot. I have reviewed imaging osteomyelitis is questionable however given concern over any recurrence and for definitive treatment patient is agreeable to amputation of the third digit. Culture did demonstrate MSRA Surgical cultures obtained 10/10/2024: Tissue third digit to micro, awaiting results; distal phalanx bone third digit to micro, awaiting result; base of the proximal phalanx third digit to pathology, awaiting results. Currently on IV vancomycin Medicine team following for medical management, they are greatly appreciated. Infectious disease following for antibiotic management Patient is to continue to elevate the right foot at all times rest for postoperative edema control May apply ice behind the right knee for postoperative pain control He is to keep all dressings clean, dry, and intact to the right foot He may continue ambulation in a protected weightbearing status utilizing his surgical shoe to the right foot. This will aid in decreasing fall due to his Parkinson's. Current expectation by patient and family is they will enter the transitional care unit for additional rehab and recovery prior to his discharge home. Social work is following and assisting in transition to the TCU. Will continue to follow while in house. Reach out to Dr. Davis for any questions or concerns. Jr. Harpreet Watson.P.M. [facility] [phone]
[2024-10-10] MEDS: Insulin Glargine-YFGN 100 UNIT/ML Pen 15 UNIT SC (22:47)
[2024-10-11] MEDS: Vancomycin HCl 1,000 MG in 0.9% Normal Saline (250mL Bag) 250 ML 250 MG IV ×2 (02:38→13:20)
[2024-10-11 03:00] VITALS: BP 167/79; PULSE 65; RESP 16; TEMP 36.3; O2SAT 95
[2024-10-11 06:26] LABS: Hematocrit 40.1 % (40-54); Hemoglobin 13.4 g/dL (13.0-16.5); Immature Granulocytes Count 0.090 X10^3/uL (0.0-0.0); Mean Corp Hgb Conc 33.4 g/dL (32-36); Mean Corpuscular Volume 90.7 fL (80-94); Mean Platelet Vol. 10.3 fl (6.2-12.0); NRBC Flagged by Analyzer 0 % (0-5); POSITIVE MORPHOLOGY YES; Platelet Count 250 K/mm3 (150-450); RBC Distribution Width CV 12.1 % (11.6-14.6); RBC Distribution Width SD 40.7 fl (35.1-43.9); Red Blood Count 4.42 M/mm3 (4.6-6.2); White Blood Count 6.4 K/mm3 (4.4-11.0)
[2024-10-11 06:56] LABS: Anion Gap 12 (5-15); BUN 29 mg/dL (4-19); BUN/Creat Ratio 29.1 RATIO (10-20); Calcium,Total 8.5 mg/dL (7.6-11.0); Carbon Dioxide 23.8 mmol/L (21.0-32.0); Chloride 103 mmol/L (98-108); Estimated Creatinine Clearance 84.22 ml/min (50-250); Glucose 268 mg/dL (70-99); Potassium 3.6 mmol/L (3.3-5.1)
[2024-10-11 07:07] LABS: Differential Comment SCANNED
[2024-10-11 07:08] LABS: Differential Indicated SCAN CRITERIA MET
--- NOTE | 2024-10-11 07:27 | PCM.PN.HOSP ---
Reason for Visit Chief Complaint: Right foot/ankle pain and swelling and generalized weakness Subjective Subjective Feels well. Denies pain. Objective Data Objective Data Vital Signs: Vital Signs Temp Pulse Resp BP Pulse Ox O2 Del Method 36.3 C L 65 16 167/79 H 95 Room Air 10/11/24 03:00 10/11/24 03:00 10/11/24 03:00 10/11/24 03:00 10/11/24 03:00 10/11/24 03:00 Oxygen Delivery Method Room Air Weight: 108.8 kg Body Mass Index (BMI) 33.4 Intake & Output: Intake and Output for Last 24 Hours 10/09/24 10/10/24 10/11/24 23:59 23:59 23:59 Intake Total 1200 / 1200 595 / 595 270 / 270 Output Total 1500 / 1500 1410 / 1410 650 / 650 Balance -300 / -300 -815 / -815 -380 / -380 Lab / Micro Data 10/11/24 05:58 10/11/24 05:58 Labs: Laboratory Results - last 24 hr 10/10/24 06:05: WBC 7.8, RBC 4.60, Hgb 14.2, Hct 41.7, MCV 90.7, MCH 30.9, MCHC 34.1, RDW Std Deviation 41.0, RDW Coeff of Brant 12.4, Plt Count 260, MPV 10.7, Immature Gran % (Auto) 0.800, Neut % (Auto) 73.6 H, Lymph % (Auto) 10.7 L, [place] % (Auto) 10.7 H, Eos % (Auto) 3.8, Baso % (Auto) 0.4, Absolute Neuts (auto) 5.8, Absolute Lymphs (auto) 0.84, Nucleated RBC % 0, Sodium 140, Potassium 3.5, Chloride 103, Carbon Dioxide 24.4, Anion Gap 13, BUN 27 H, Creatinine 1.05, Estim Creat Clear Calc 78.61, Est GFR (MDRD) Non-Af 75, BUN/Creatinine Ratio 25.3 H, Glucose 144 H, Calcium 8.6 10/10/24 08:03: POC Glucose 121 H 10/10/24 11:12: Vancomycin Trough 16.5 H 10/10/24 16:23: POC Glucose 165 H 10/10/24 22:41: POC Glucose 183 H 10/11/24 05:58: WBC 6.4, RBC 4.42 L, Hgb 13.4, Hct 40.1, MCV 90.7, MCH 30.3, MCHC 33.4, RDW Std Deviation 40.7, RDW Coeff of Brant 12.1, Plt Count 250, MPV 10.3, Immature Gran % (Auto) 1.400 H, Neut % (Auto) 68.8, Lymph % (Auto) 13.9 L, [place] % (Auto) 10.3 H, Eos % (Auto) 4.7, Baso % (Auto) 0.9, Absolute Neuts (auto) 4.4, Absolute Lymphs (auto) 0.89, Nucleated RBC % 0, Differential Comment SCANNED, Atypical Lymphocytes RARE, Plt Morphology Comment GIANT, Sodium 139, Potassium 3.6, Chloride 103, Carbon Dioxide 23.8, Anion Gap 12, BUN 29 H, Creatinine 0.98, Estim Creat Clear Calc 84.22, Est GFR (MDRD) Non-Af 81, BUN/Creatinine Ratio 29.1 H, Glucose 268 H, Calcium 8.5 10/11/24 06:40: POC Glucose 242 H Radiography Diagnostic Testing: Radiology Impression C-Arm Fluoroscopy 10/10/24 11:30 IMPRESSION: Intraoperative fluoroscopy was performed for amputation of the right 3rd toe. 2 fluoroscopic images are also obtained. Reading Location: [place] [address] Foot X-Ray 10/10/24 11:30 IMPRESSION: Intraoperative fluoroscopy was performed for amputation of the right 3rd toe. 2 fluoroscopic images are also obtained. Reading Location: [place] [address] Physical Exam Const alert and no apparent distress HEENT head/scalp atraumatic and moist oral mucous membranes Resp normal respiratory effort, no retractions, no use of accessory muscles and clear to auscultation bilaterally Cardio regular rate, regular rhythm, S1 normal heart sound and S2 normal heart sound GI normal to inspection, nondistended, normoactive bowel sounds, soft to palpation, non-tender and non-distended Extremity Extremity Narrative: Right foot bandaged and wrapped. Neuro Sensorium / Orientation: awake and alert Assessment & Plan Assessment/Plan (1) Cellulitis of leg, right: PLAN: On IV vancomycin Began today after debridement of his left third toe. Concerned that the third toe could be the nidus of the infection. MRI showed osteomyelitis of right 3rd toe. Amputation of 3rd digit right foot on 10/10 Duplex of RLE given the edema showed no DVT. Culture showing MRSA from September 10 Per ID, plan for discharge with 7 days of doxycycline 100 twice daily. (2) Debility: PLAN: requires much assistance for ambulation and this will be further complicated by surgery and off-loading, additionally complicated by Parkinson's disease Plan for SNF when medically stable. PLAN: Plan Chronic conditions: DM2: glargine and SSI. resume empagliflozin as outpt. parkinson's disease: carbidopa/levodopa BPH: flomax VTE prophylaxis: LMWH. Disposition: To TCU today.
--- NOTE | 2024-10-11 07:47 | PN_ITS ---
Subjective Subjective Patient seen early this a.m. with wound nurse present. Patient states that he is feeling pretty good this morning and denies pain to the right foot. Has continued to elevate the foot through the night. Nursing reports no acute overnight events. Patient denies constitutional symptoms. Denies further complaints. Objective Data Objective Data Vital Signs: Vital Signs Temp Pulse Resp BP Pulse Ox O2 Del Method 97.4 F L 65 16 167/79 H 95 Room Air 10/11/24 03:00 10/11/24 03:00 10/11/24 03:00 10/11/24 03:00 10/11/24 03:00 10/11/24 03:00 Oxygen Delivery Method Room Air Weight: 108.8 kg Body Mass Index (BMI) 33.4 Intake & Output: Intake and Output for Last 24 Hours 10/09/24 10/10/24 10/11/24 23:59 23:59 23:59 Intake Total 1200 / 1200 595 / 595 270 / 270 Output Total 1500 / 1500 1410 / 1410 650 / 650 Balance -300 / -300 -815 / -815 -380 / -380 Lab / Micro Data 10/11/24 05:58 10/11/24 05:58 Labs: Laboratory Results - last 24 hr 10/10/24 06:05: Sodium 140, Potassium 3.5, Chloride 103, Carbon Dioxide 24.4, Anion Gap 13, BUN 27 H, Creatinine 1.05, Estim Creat Clear Calc 78.61, Est GFR (MDRD) Non-Af 75, BUN/Creatinine Ratio 25.3 H, Glucose 144 H, Calcium 8.6 10/10/24 08:03: POC Glucose 121 H 10/10/24 11:12: Vancomycin Trough 16.5 H 10/10/24 16:23: POC Glucose 165 H 10/10/24 22:41: POC Glucose 183 H 10/11/24 05:58: WBC 6.4, RBC 4.42 L, Hgb 13.4, Hct 40.1, MCV 90.7, MCH 30.3, MCHC 33.4, RDW Std Deviation 40.7, RDW Coeff of Brant 12.1, Plt Count 250, MPV 10.3, Immature Gran % (Auto) 1.400 H, Neut % (Auto) 68.8, Lymph % (Auto) 13.9 L, [place] % (Auto) 10.3 H, Eos % (Auto) 4.7, Baso % (Auto) 0.9, Absolute Neuts (auto) 4.4, Absolute Lymphs (auto) 0.89, Nucleated RBC % 0, Differential Comment SCANNED, Atypical Lymphocytes RARE, Plt Morphology Comment GIANT, Sodium 139, Potassium 3.6, Chloride 103, Carbon Dioxide 23.8, Anion Gap 12, BUN 29 H, Creatinine 0.98, Estim Creat Clear Calc 84.22, Est GFR (MDRD) Non-Af 81, B UN/Creatinine Ratio 29.1 H, Glucose 268 H, Calcium 8.5 10/11/24 06:40: POC Glucose 242 H Radiography Diagnostic Testing: Radiology Impression C-Arm Fluoroscopy 10/10/24 11:30 IMPRESSION: Intraoperative fluoroscopy was performed for amputation of the right 3rd toe. 2 fluoroscopic images are also obtained. Reading Location: [place] [address] Foot X-Ray 10/10/24 11:30 IMPRESSION: Intraoperative fluoroscopy was performed for amputation of the right 3rd toe. 2 fluoroscopic images are also obtained. Reading Location: [place] [address] Physical Exam Const alert, oriented x3 and no apparent distress General Appearance: cooperative HEENT normocephalic Eyes Eyes Narrative: Wears glasses General Eye: normal appearance of both eyes Neck General: normal visual inspection Lymph Lymphatic: no lymphadenopathy noted and no lymphedema noted Resp normal respiratory effort Cardio regular rate and regular rhythm Extremity no calf tenderness Extremity Narrative: Bilateral lower extremity: Vascular: DP and PT pulses weakly palpable. CFT less than 5 seconds to the digits. Normal temperature gradient. Hair growth is diminished to digits and foot Neurologic: Gross sensation is intact. Protective sensation is diminished secondary to diabetic peripheral polyneuropathy Musculoskeletal: Third digit amputation of the right foot noted. Negative Jaramillo sign, negative Homans' sign. Pain to palpation about the lateral ankle, anterior ankle, and medial ankle right lower extremity. Dermatological: There is erythema about the ankle to just above the ankle mortise/distal tibia right lower extremity. This has receded from the previous line of demarcation consistent with improving cellulitis. Third digit amputation of the right foot is appreciated with intact sutures overlying the amputation site. There is no surrounding erythema of the digit or foot, no purulent drainage from the digit site, no foul odor noted. No pain to palpation about the surgical site. Skin no rashes or lesions noted Neuro moves all extremities Assessment & Plan Assessment/Plan (1) Osteomyelitis of right foot: QUALIFIERS: Osteomyelitis type: subacute Qualified Code(s): M 86.271 - Subacute osteomyelitis, right ankle and foot (2) Cellulitis of leg, right: (3) Non-pressure chronic ulcer of other part of right foot with fat layer exposed: PLAN: Plan Patient seen and evaluated DOS: 10/10/2024, POD #1 I have reviewed previous radiographs of the right foot and ankle from 10/05/2024 and concur with radiographic read. Sutures intact third digit amputation stump. Erythema about the ankle is resolving in addition to improving swelling. Tenderness is improving about his ankle. Dressing changed today consisting of Betadine soaked Adaptic, 4 x 4 gauze, Kerlix, ABD, and 4 inch Louis wrap rolled onto the foot. Nursing may continue to change dressing every 3 days WBC currently 6.4 On 10/05/2024 ESR noted to be elevated at 251 and ESR at 37 MRI was obtained 10/07/2024 demonstrating likely osteomyelitis of the remaining osseous structures of the middle and distal phalanx of the third digit of the right foot. I have reviewed imaging osteomyelitis is questionable however given concern over any recurrence and for definitive treatment patient is agreeable to amputation of the third digit. Culture did demonstrate MSRA Surgical cultures obtained 10/10/2024: Tissue third digit to micro, awaiting results; distal phalanx bone third digit to micro, awaiting result; base of the proximal phalanx third digit to pathology, awaiting results. Currently on IV vancomycin Medicine team following for medical management, they are greatly appreciated. Infectious disease following for antibiotic management Wound nurse following for assistance in dressing changes Patient is to continue to elevate the right foot at all times rest for postoperative edema control May apply ice behind the right knee for postoperative pain control He is to keep all dressings clean, dry, and intact to the right foot He may continue ambulation in a protected weightbearing status utilizing his surgical shoe to the right foot. This will aid in decreasing fall due to his Parkinson's. Current expectation by patient and family is they will enter the transitional care unit for additional rehab and recovery prior to his discharge home. Social work is following and assisting in transition to the TCU. Will continue to follow while in house. Reach out to Dr. Davis for any questions or concerns. Jr. Crow WatsonP[facility]M. [facility] [phone]
[2024-10-11 07:52] VITALS: BP 148/78; PULSE 68; RESP 16; TEMP 36.7; O2SAT 94
[2024-10-11] MEDS: Cholecalciferol (VIT D3) 25 MCG TABLET (1,000 UNITS) 50 MCG PO (09:39)
[2024-10-11] MEDS: Insulin Glargine-YFGN 100 UNIT/ML Pen 15 UNIT SC (09:40)
[2024-10-11] MEDS: Polyethylene Glycol 3350 17 GM PACKET PO (09:41)
--- NOTE | 2024-10-11 10:14 | PCM.PN.ID ---
Physical Exam Narrative Feeling ok, pain controlled s/p OR, no fever, no n/v. Const alert and no apparent distress General Appearance: cooperative Resp normal air movement and clear to auscultation bilaterally Cardio regular rate and regular rhythm GI soft to palpation, non-tender and non-distended Skin Skin Narrative: foot wrapped ID ID: Route of nutrition/ use of supplements: [] Nutritional Intake: [] IV Site: [] [place] Catheter: [] Assessment & Plan Assessment/Plan (1) Osteomyelitis of right foot: QUALIFIERS: Osteomyelitis type: subacute Qualified Code(s): M86.271 - Subacute osteomyelitis, right ankle and foot PLAN: R 3rd toe presumed osteo. Wound cx with MRSA. OR 10/10/[address] Davis for toe amputation. Cont vanc while inpatient. plan on discharge with 7 days po doxy 100mg bid. Will follow prn
--- NOTE | 2024-10-11 11:17 | CASEMGMT ---
Addendum entered by Jared Alberto 10/11/24 12:29: Signed med list and Transfer summary faxed to [facility] at this time. Original orders provided to the community health program representative. Copies placed in pts chart. Addendum entered by Jared Alberto 10/11/24 11:52: Raiza calls this RN JUNIOR back and updated on the DC plan. Denies further questions or concerns. Addendum entered by Jared Alberto 10/11/24 11:47: TCU states that they can accept the pt now. Dr Steward notified. RN JUNIOR to the pt's room at this time and updated the pt. Pt thanks this global technical writer and denies further questions or concerns. TC to the pt to update on status. No answer, VM left. No further needs identified at this time. Original Note: Hospitalist reports to this RN JUNIOR that the pt is medically ready for DC today. [facility] intermission coordinator notified. CM to follow.
--- NOTE | 2024-10-11 11:36 | WOUNDNOTE ---
wound photo: right foot
--- NOTE | 2024-10-11 11:37 | WOUNDNOTE ---
wound photo: right foot
--- NOTE | 2024-10-11 11:37 | WOUNDNOTE ---
wound photo: right foot
--- NOTE | 2024-10-11 12:08 | TREXTCAR_ITS ---
Diet Diet Order/Speech Therapy: INPATIENT Hospital Diet / Speech Therapy Order(s) 10/05/24 15:38 Diet: Consistent Carb - Calorie Controlled Food consistency:: Regular Liquid Consistency:: Regular/Thin Type of Dietary Supplement:: Rohit Diet Comments: Rohit BID How many daily calories?: 2000 calorie Routine Orders/Code Status Routine Lab Work: CBC and BMP Code Status: DNRCC-A (no intubation. ) DC O2, CPAP, BIPAP needs Home O2 Discharge instructions: No Wound(s) Left Knee: Wound Type: Abrasion Right Knee: Wound Type: Abrasion Right third toe, debridement by podiatry 10/01 outpatient: Wound Type: Neuropathic/Diabetic Foot Ulcer Dressing Change: betadine with dry dressing L medial ankle: Wound Type: Abrasion right foot: Wound Type: incision at R 3rd toe amputation site Dressing Change: betadine Adaptic Therapies Weight Bearing: Weight bearing as tolerated (surgical shoe with ambulation. ) Extremity Affected:: Right Lower Problem/Diagnosis (1) Cellulitis of leg, right: Status: Acute Code(s): L03.115 - Cellulitis of right lower limb Plan: On IV vancomycin Began today after debridement of his left third toe. Concerned that the third toe could be the nidus of the infection. MRI showed osteomyelitis of right 3rd toe. Amputation of 3rd digit right foot on 10/10 Duplex of RLE given the edema showed no DVT. Culture showing MRSA from September 10 Per ID, plan for discharge with 7 days of doxycycline 100 twice daily. (2) Debility: Status: Acute Code(s): R53.81 - Other malaise Plan: requires much assistance for ambulation and this will be further complicated by surgery and off-loading, additionally complicated by Parkinson's disease Plan for SNF when medically stable. Plan Chronic conditions: * DM2: glargine and SSI. resume empagliflozin as outpt. * parkinson's disease: carbidopa/levodopa * BPH: flomax VTE prophylaxis: LMWH. Disposition: To TCU today. Allergies/Procedures Done in Hospital Allergies No Known Allergies Allergy (Verified 10/10/24 11:37) Procedures: - (Amputation of right third toe.) Type of Care/Length of Stay Estimated LOS: Convalescent Care Less Than 30 days Type of Care Needed: Skilled Rehab Potential: Fair Prognosis: Good Additional Orders/Day of Discharge Day of Discharge: 10/11/24 Dietary and Speech Recommendations Dietitian Recommendations/Changes: Will continue 2000 calorie/consistent carbohydrate diet. Will add Rohit BID to support wound healing. Discharge Plan Admission Admit Date/Time: 10/05/24 14:29 Primary Reason for Your Visit: Right third toe osteomyelitis Attending Provider: Ryne Steward Primary Care Provider: Rich Foy Consulting Providers: Stephen Deal; Silvia Son; Rich Davis; Ever Schreiber Instructions Additional Instructions / Restrictions: Patient is to continue to elevate the right foot at all times rest for postoperative edema control May apply ice behind the right knee for postoperative pain control He is to keep all dressings clean, dry, and intact to the right foot He may continue ambulation in a protected weightbearing status utilizing his surgical shoe to the right foot. Discharge Orders/Prescriptions Prescriptions: New acetaminophen 500 mg Tablet 1,000 mg PO Q8 PRN (Reason: pain) Qty: 0 0RF enoxaparin 40 mg/0.4 mL Syringe 40 mg subcut DAILY Qty: 0 0RF insulin lispro [Humalog KwikPen Insulin] 100 unit/mL Insulin Pen See Protocol subcut ACHS Qty: 0 0RF Protocol: 4. Sliding Scale Insulin High-Med Dosing Condition: 150-199 mg/dl = 2 units Condition: 200-259 mg/dl = 4 units Condition: 260-324 mg/dl = 6 units Condition: 325-374 mg/dl = 8 units Condition: 375-409 mg/dl = 10 units Condition: 410-449 mg/dl = 11 units Condition: Greater than 449 call physician Protocol Text: Suggested for: - Patients on Total Daily Insulin Dose of 56-80 units - Patient who are known to be insulin resistant or septic HIGH MEDIUM DOSING ALGORITHM melatonin 3 mg Tablet 3 mg PO QHS PRN PRN (Reason: Insomnia) Qty: 0 0RF oxycodone 5 mg Tablet 5 mg PO Q4H PRN PRN (Reason: Pain Score 1-10) 3 Days Qty: 12 0RF insulin glargine-yfgn 100 unit/mL (3 mL) Insulin Pen 20 unit subcut BID Qty: 0 0RF Continued glimepiride 4 mg tablet 4 mg PO DAILY Patient Comments: TAKE 1 TABLET BY MOUTH EVERY DAY lisinopril-hydrochlorothiazide 20-25 mg tablet 1 tab PO DAILY carbidopa-levodopa 25-250 mg tablet 2 tab PO BID tamsulosin 0.4 mg capsule 0.4 mg PO Q24H cholecalciferol (vitamin D3) 50 mcg (2,000 unit) tablet 50 mcg PO DAILY Patient Comments: TAKE 1 TABLET BY MOUTH EVERY DAY pravastatin 20 mg tablet 20 mg PO DAILY Patient Comments: TAKE 1 TABLET BY MOUTH EVERY OTHER DAY Jardiance 25 mg tablet 25 mg PO DAILY gabapentin 100 mg capsule 100 mg PO Q8H Patient Comments: TAKE 1 CAPSULE BY MOUTH TWICE A DAY cyclobenzaprine 10 mg tablet 10 mg PO TID omeprazole 20 mg capsule,delayed release(DR/EC) 20 mg PO DAILY propranolol 20 mg tablet 20 mg PO BID doxycycline monohydrate 100 mg capsule 100 mg PO BID Qty: 14 0RF Discontinued Humulin 70/30 U-100 Insulin 100 unit/mL (70-30) suspension 30 unit SUBCUT .daily AM Patient Comments: INJECT 30 UNITS UNDER THE SKIN DAILY BEFORE breakfast AND 20 UNITS EVERY [place] BEFORE dinner Novolin 70-30 FlexPen U-100 100 unit/mL (70-30) insulin pen 20 unit subcut .daily HS Referrals / Follow Up: Rich Foy DO [Primary Care Provider] - Within 2 Weeks Rich Davis DPM [Med Staff - Active Staff] - In 1 Week Disposition Disposition (needs filled in before D/C Order can be placed): [facility]
--- NOTE | 2024-10-11 12:16 | PCM.DC.SUM ---
Providers Date of Admission: 10/05/24 Primary Care Physician: Dr. Rich Foy, Consultations 10/05/24 15:38 Consult: Onc/Wound/transition mgr Routine Comment: Reason for Consult:: right foot/toe wound w/ RLE cellulitis 10/08/24 08:32 Consult: Podiatry Routine Consulting Provider: Rich Davis Reason for Consult: right 3rd toe osteomyelitis EMERGENT Consult: No MD Notified: Yes Date Notified: 10/08/24 Time Notified: 08:32 Method of Notification: Text 10/08/24 13:46 Consult: Infectious Disease Routine Consulting Provider: Ever Schreiber Reason for Consult: toe osteomyelitis EMERGENT Consult: No Notified: Yes Date Notified: 10/08/24 Time Notified: 13:46 Method of Notification: Text Reason For Visit: RLE CELLULITIS AND WEAKNESS Diagnosis Discharge Diagnosis (1) Cellulitis of leg, right: Status: Acute Code(s): L03.115 - Cellulitis of right lower limb Plan: On IV vancomycin Began today after debridement of his left third toe. Concerned that the third toe could be the nidus of the infection. MRI showed osteomyelitis of right 3rd toe. Amputation of 3rd digit right foot on 10/10 Duplex of RLE given the edema showed no DVT. Culture showing MRSA from September 10 Per ID, plan for discharge with 7 days of doxycycline 100 twice daily. (2) Debility: Status: Acute Code(s): R53.81 - Other malaise Plan: requires much assistance for ambulation and this will be further complicated by surgery and off-loading, additionally complicated by Parkinson's disease Plan for SNF when medically stable. Plan Chronic conditions: DM2: glargine and SSI. resume empagliflozin as outpt. parkinson's disease: carbidopa/levodopa BPH: flomax VTE prophylaxis: LMWH. Disposition: To TCU today. Medications at Discharge Home Medications carbidopa 25 mg-levodopa 250 mg tablet 2 tab PO BID parkinsons 03/10/20 glimepiride 4 mg tablet 4 mg PO DAILY diabetes 03/10/20 lisinopril 20 mg-hydrochlorothiazide 25 mg tablet 1 tab PO DAILY blood pressure 03/10/20 tamsulosin 0.4 mg capsule 0.4 mg PO Q24H retention 03/10/20 cholecalciferol (vitamin D3) 50 mcg (2,000 unit) tablet 50 mcg PO DAILY supplement 11/09/22 empagliflozin 25 mg tablet (Jardiance) 25 mg PO DAILY diabetes 11/09/22 gabapentin 100 mg capsule 100 mg PO Q8H pain/neurapathy 11/09/22 pravastatin 20 mg tablet 20 mg PO DAILY cholesterol 11/09/22 cyclobenzaprine 10 mg tablet 10 mg PO TID pain 10/05/24 omeprazole 20 mg capsule,delayed release 20 mg PO DAILY heartburn 10/05/24 propranolol 20 mg tablet 20 mg PO BID blood pressure 10/05/24 acetaminophen 500 mg tablet 1,000 mg (2 x 500 mg) PO Q8 PRN pain #0 tabs 10/11/24 doxycycline monohydrate 100 mg capsule 100 mg PO BID infection #14 caps 10/11/24 enoxaparin 40 mg/0.4 mL subcutaneous syringe 40 mg (0.4 mL) subcut DAILY #0 mL 10/11/24 insulin glargine-yfgn 100 unit/mL (3 mL) subcutaneous pen 20 unit (0.2 mL) subcut BID #0 mL 10/11/24 insulin lispro 100 unit/mL subcutaneous pen (Humalog KwikPen (U-100) Insulin) See Protocol subcut ACHS #0 mL 10/11/24 melatonin 3 mg tablet 3 mg PO QHS PRN PRN Insomnia #0 tabs 10/11/24 oxycodone 5 mg tablet 5 mg PO Q4H PRN PRN Pain Score 1-10 3 days #12 tabs 10/11/24 Hospital Course Operations - (Imitation of third right toe.) Summary of Care Provided Minutes Spent on Discharge: 35 Hospital Course: This is a 74-year-old male presents with right lower extremity cellulitis. The nidus of the cellulitis was likely his right third toe was he had an ulcer that is been attended to by podiatry. Patient underwent an MRI that showed osteomyelitis of the right third toe. Podiatry was consulted and patient underwent a amputation of the right third toe on the . Cultures were drawn at this time which are pending at the time of this dictation. Previously it had been MRSA from cultures on the wound from August. But the patient had resection of all of the infected bone. Patient was seen by podiatry recommends 7 more days of doxycycline complete antibiotics. Patient does have Parkinson's and is debilitated and does require assistance so the plan is for him to go to the transitional care unit today. Weight / BMI Weight Weight: 108.8 kg Body Mass Index (BMI) 33.4 ABG / Lab / Microbiology Data 10/11/24 05:58 10/11/24 05:58 Laboratory: Laboratory Results - last 24 hr 10/10/24 16:23: POC Glucose 165 H 10/10/24 22:41: POC Glucose 183 H 10/11/24 05:58: WBC 6.4, RBC 4.42 L, Hgb 13.4, Hct 40.1, MCV 90.7, MCH 30.3, MCHC 33.4, RDW Std Deviation 40.7, RDW Coeff of Brant 12.1, Plt Count 250, MPV 10.3, Immature Gran % (Auto) 1.400 H, Neut % (Auto) 68.8, Lymph % (Auto) 13.9 L, [place] % (Auto) 10.3 H, Eos % (Auto) 4.7, Baso % (Auto) 0.9, Absolute Neuts (auto) 4.4, Absolute Lymphs (auto) 0.89, Nucleated RBC % 0, Differential Comment SCANNED, Atypical Lymphocytes RARE, Plt Morphology Comment GIANT, Sodium 139, Potassium 3.6, Chloride 103, Carbon Dioxide 23.8, Anion Gap 12, BUN 29 H, Creatinine 0.98, Estim Creat Clear Calc 84.22, Est GFR (MDRD) Non-Af 81, BUN/Creatinine Ratio 29.1 H, Glucose 268 H, Calcium 8.5 10/11/24 06:40: POC Glucose 242 H 10/11/24 11:13: POC Glucose 219 H Microbiology: Microbiology 10/10/24 Unknown Tissue - 3rd Toe Gram Stain - Final 10/10/24 Unknown Tissue - 3rd Toe Wound Culture - Preliminary Gram negative bertha 10/10/24 Unknown Bone - 3rd Toe Gram Stain - Final 10/10/24 Unknown Bone - 3rd Toe Wound Culture - Preliminary Gram negative bertha Radiography Diagnostic Testing: Radiology Impression C-Arm Fluoroscopy 10/10/24 11:30 IMPRESSION: Intraoperative fluoroscopy was performed for amputation of the right 3rd toe. 2 fluoroscopic images are also obtained. Reading Location: [facility] Foot X-Ray 10/10/24 11:30 IMPRESSION: Intraoperative fluoroscopy was performed for amputation of the right 3rd toe. 2 fluoroscopic images are also obtained. Reading Location: [place] [id number] D/C Instructions DC O2, CPAP, BIPAP Needs Home O2 Discharge instructions: No Meaningful Use Info Meaningful Use Meaningful Use Diagnoses (Choose all that apply): None applicable Discharge Plan Admission Admit Date/Time: 10/05/24 14:29 Primary Reason for Your Visit: Right third toe osteomyelitis Attending Provider: Ryne Steward Primary Care Provider: Rich Foy Consulting Providers: Stephen Deal; Silvia Son; Rich Davis; Ever Schreiber Instructions Additional Instructions / Restrictions: Patient is to continue to elevate the right foot at all times rest for postoperative edema control May apply ice behind the right knee for postoperative pain control He is to keep all dressings clean, dry, and intact to the right foot He may continue ambulation in a protected weightbearing status utilizing his surgical shoe to the right foot. Discharge Orders/Prescriptions Prescriptions: New acetaminophen 500 mg Tablet 1,000 mg PO Q8 PRN (Reason: pain) Qty: 0 0RF enoxaparin 40 mg/0.4 mL Syringe 40 mg subcut DAILY Qty: 0 0RF insulin lispro [Humalog KwikPen Insulin] 100 unit/mL Insulin Pen See Protocol subcut ACHS Qty: 0 0RF Protocol: 4. Sliding Scale Insulin High-Med Dosing Condition: 150-199 mg/dl = 2 units Condition: 200-259 mg/dl = 4 units Condition: 260-324 mg/dl = 6 units Condition: 325-374 mg/dl = 8 units Condition: 375-409 mg/dl = 10 units Condition: 410-449 mg/dl = 11 units Condition: Greater than 449 call physician Protocol Text: Suggested for: - Patients on Total Daily Insulin Dose of 56-80 units - Patient who are known to be insulin resistant or septic HIGH MEDIUM DOSING ALGORITHM melatonin 3 mg Tablet 3 mg PO QHS PRN PRN (Reason: Insomnia) Qty: 0 0RF oxycodone 5 mg Tablet 5 mg PO Q4H PRN PRN (Reason: Pain Score 1-10) 3 Days Qty: 12 0RF insulin glargine-yfgn 100 unit/mL (3 mL) Insulin Pen 20 unit subcut BID Qty: 0 0RF Continued glimepiride 4 mg tablet 4 mg PO DAILY Patient Comments: TAKE 1 TABLET BY MOUTH EVERY DAY lisinopril-hydrochlorothiazide 20-25 mg tablet 1 tab PO DAILY carbidopa-levodopa 25-250 mg tablet 2 tab PO BID tamsulosin 0.4 mg capsule 0.4 mg PO Q24H cholecalciferol (vitamin D3) 50 mcg (2,000 unit) tablet 50 mcg PO DAILY Patient Comments: TAKE 1 TABLET BY MOUTH EVERY DAY pravastatin 20 mg tablet 20 mg PO DAILY Patient Comments: TAKE 1 TABLET BY MOUTH EVERY OTHER DAY Jardiance 25 mg tablet 25 mg PO DAILY gabapentin 100 mg capsule 100 mg PO Q8H Patient Comments: TAKE 1 CAPSULE BY MOUTH TWICE A DAY cyclobenzaprine 10 mg tablet 10 mg PO TID omeprazole 20 mg capsule,delayed release(DR/EC) 20 mg PO DAILY propranolol 20 mg tablet 20 mg PO BID doxycycline monohydrate 100 mg capsule 100 mg PO BID Qty: 14 0RF Discontinued Humulin 70/30 U-100 Insulin 100 unit/mL (70-30) suspension 30 unit SUBCUT .daily AM Patient Comments: INJECT 30 UNITS UNDER THE SKIN DAILY BEFORE breakfast AND 20 UNITS EVERY EVENING BEFORE dinner Novolin 70-30 FlexPen U-100 100 unit/mL (70-30) insulin pen 20 unit subcut .daily Referrals / Follow Up: Rich Foy DO [Primary Care Provider] - Within 2 Weeks Rich Davis DPM [Med Staff - Active Staff] - In 1 Week Disposition Disposition (needs filled in before D/C Order can be placed): [facility] Charges/Coding Visit Charges Inpatient E&M: 34938 Disch Hosp >30min
== END 2024-10-11 14:49 | disposition skilled nursing facility (03) | DRG 617 ==
LOC: ED 14:36 → MS3 15:00
PROVIDERS: Student in an Organized Health Care Education/Training Program; Admitting Provider Hospitalist; Emergency Provider Emergency Medicine; PCP Student in an Organized Health Care Education/Training Program
PROC: 0Y6T0Z0 Detachment at Right 3rd Toe, Complete, Open Approach (ICD-10-PCS; principal; 2024-10-10 12:15)
DX: E11.69 Type 2 diabetes mellitus with other specified complication (principal); N13.8 Other obstructive and reflux uropathy; E87.20 Acidosis, unspecified; M86.271 Subacute osteomyelitis, right ankle and foot; L03.115 Cellulitis of right lower limb; Z66 Do not resuscitate; G20.A1 Parkinson's disease without dyskinesia, without mention of fluctuations; N18.31 Chronic kidney disease, stage 3a; E11.22 Type 2 diabetes mellitus with diabetic chronic kidney disease; I12.9 Hypertensive chronic kidney disease with stage 1 through stage 4 chronic kidney disease, or unspecified chronic kidney disease; E66.812 Obesity, class 2; E11.621 Type 2 diabetes mellitus with foot ulcer; E11.42 Type 2 diabetes mellitus with diabetic polyneuropathy; W19.XXXA Unspecified fall, initial encounter; S93.401A Sprain of unspecified ligament of right ankle, initial encounter; L97.512 Non-pressure chronic ulcer of other part of right foot with fat layer exposed; E11.628 Type 2 diabetes mellitus with other skin complications; E78.5 Hyperlipidemia, unspecified; K21.9 Gastro-esophageal reflux disease without esophagitis; Z89.421 Acquired absence of other right toe(s); N40.1 Benign prostatic hyperplasia with lower urinary tract symptoms; R53.81 Other malaise; Z68.35 Body mass index [BMI] 35.0-35.9, adult; Z79.84 Long term (current) use of oral hypoglycemic drugs; Z91.81 History of falling; Z86.14 Personal history of Methicillin resistant Staphylococcus aureus infection; Z79.899 Other long term (current) drug therapy
CPT/HCPCS: 36415; 73030; 73610; 73620; 73630; 73720; 76000; 80048; 80202; 82962; 83036; 85025; 85027; 85652; 86140; 87015; 87070; 87075; 87077; 87102; 87116; 87176; 87186; 87205; 87206; 88305; 88311; 93005; 93971; 97116; 97161; 97166; 97530; 97535; 99284; A9575; A4216; J2405

== ENCOUNTER 2024-10-11 15:07 | Inpatient (IN) | payer MEDICARE, OTHER, SELFPAY ==
[2024-10-11 15:30] VITALS: BP 187/90; PULSE 70; RESP 13; TEMP 36.4; O2SAT 97; BMI 33.4
--- NOTE | 2024-10-11 16:10 | HP.PCM_ITS ---
HPI - General General Date of Admission: 10/11/24 Date of Service: 10/11/24 Chief Complaint: Here for rehabilitation. HPI Narrative AMBROCIO JEFFERS, is a 74 Male who presents with followin10/05/2024 [facility] ED lower extremity injury. History Parkinson Disease, fell, injury right foot, right ankle. Right ankle pain, right posterior leg pain. Podiatry debrided right 3rd toe earlier this week, right foot redness noted. Doxycycline started 2 days ago, but redness spread up right leg. Weak. X-ray right ankle negative, X-ray right foot negative, No subcutaneous emphysema. Vancomycin given, ESR elevated, CRP elevated. 10/05/2024 Admit [facility]. Previous wound culture MRSA. Vancomycin IV for MRSA right foot cellulitis. 10/06/2024 Improved, redness persists. Vancomycin IV for MRSA right foot cellulitis. PT/OT/CM. Creatinine improved from 1.57 to 1.17. 10/07/2024 Erythema persists, right 3rd toe. Order MRI right foot to evaluate osteomyelitis. 10/08/2024 MRI showed osteomyelitis right 3rd toe, consult Podiatry. 10/09/2024 Consult Podiatry, Consult Infectious Disease. PT/OT SNF. Doppler ultrasound right lower extremity negative DVT. 10/10/2024 Dr. Davis performed amputation right 3rd digit. Dr. Schreiber recommended continuing Vancomycin for MRSA right foot osteomyelitis. 10/11/2024 Dr. Gonzalez recommended Doxycycline 100mg bid x 7 days upon discharge. 10/11/2024 Admit to TCU with debility, here for rehabilitation, strengthening, prior to discharge home with . [facility] Medical History (Updated 10/11/24 @ 16:[address] Ion Vega MD) Parkinson disease Hypertension Diabetes Home Medications ?Medication ?Instructions ?Recorded ?Last Taken ?Type carbidopa 25 mg-levodopa 250 mg 2 tab PO BID parkinson s 03/10/20 10/11/24 History tablet glimepiride 4 mg tablet 4 mg PO DAILY diabetes 03/1010/05/24 History lisinopril 20 1 tab PO DAILY blood pressur e 03/10/20 10/05/24 History mg-hydrochlorothiazide 25 mg tablet tamsulosin 0.4 mg capsule 0.4 mg PO Q24H retention 10/11/24 History cholecalciferol (vitamin D3) 50 50 mcg PO DAILY supple ment 11/09/22 10/11/24 History mcg (2,000 unit) tablet empagliflozin 25 mg tablet 25 mg PO DAILY diabetes 10/05/24 History (Jardiance) gabapentin 100 mg capsule 100 mg PO Q8H pain/neurapath y 11/09/22 10/11/24 History pravastatin 20 mg tablet 20 mg PO DAILY cholesterol 0 11/09/22 10/10/24 History cyclobenzaprine 10 mg tablet 10 mg PO TID pain 5 10/11/24 History omeprazole 20 mg capsule,delayed 20 mg PO DAILY heartb urn 10/05/24 10/11/24 History release propranolol 20 mg tablet 20 mg PO BID blood pressure 10/05/24 10/11/24 History acetaminophen 500 mg tablet 1,000 mg (2 x 500 mg) PO Q 8 PRN 10/11/24 10/11/24 Rx pain #0 tabs doxycycline monohydrate 100 mg 100 mg PO BID infection #14 caps 10/11/24 10/11/24 Rx capsule enoxaparin 40 mg/0.4 mL 40 mg (0.4 mL) subcut DAILY blood 10/11/24 10/11/24 Rx subcutaneous syringe thinner #0 mL insulin glargine-yfgn 100 unit/mL 20 unit (0.2 mL) sub cut BID Blood 10/11/24 10/11/24 Rx (3 mL) subcutaneous pen sugar #0 mL insulin lispro 100 unit/mL See Protocol subcut ACHS Bl ood 10/11/24 10/11/24 Rx subcutaneous pen (Humalog KwikPen sugar #0 mL (U-100) Insulin) melatonin 3 mg tablet 3 mg PO QHS PRN PRN Insomnia #0 10/11/24 Unknown Rx tabs oxycodone 5 mg tablet 5 mg PO Q4H PRN PRN Pain Sco re 10/11/24 10/11/24 Rx 1-10 3 days #12 tabs Allergy/AdvReac Type Severity Reaction Status Date / Time No Known Allergies Allergy Verified 10/10/24 11:37 Surgical History History of partial amputation of toe of right foot h/o appendectomy Social History (Updated 10/11/24 @ 16:[address] Ion Vega MD) household members: spouse Smoking Status: Never smoker alcohol intake: never substance use type: does not use ROS Constitutional Constitutional: Denies chills, fever(s) or weight gain ENT HEENT: Denies headache(s), nasal congestion or nasal discharge Cardiovascular Cardiovascular: Denies chest pain or palpitations Respiratory/Chest Respiratory/Chest: Denies cough, excessive phlegm production or shortness of breath with exertion Gastrointestinal Gastrointestinal: Denies abdominal pain, nausea or vomiting Genitourinary Genitourinary: Denies dysuria Musculoskeletal Musculoskeletal: Denies joint pain or joint swelling Integumentary Integumentary: Denies rash or wounds Neurologic Neurologic: Denies focal weakness, numbness or tingling Psychiatric Psychiatric: Denies anxiety, auditory hallucinations, depression, homicidal ideation or suicidal ideation Vital Signs Vital Signs Vital Signs: 10/11/24 15:30 Temperature 97.6 F L Temperature Source Temporal Pulse Rate 70 Respiratory Rate 13 Blood Pressure 187/90 H Blood Pressure Mean 122 Blood Pressure Source Monitor Blood Pressure Position Semi-Fowlers Blood Pressure Location Left Arm Pulse Ox 97 Oxygen Delivery Method Room Air Weight Weight: 108.635 kg Body Mass Index (BMI) 33.4 Physical Exam Const alert General Appearance: cooperative HEENT normocephalic Eyes PERRL and EOMs intact bilaterally Neck supple, no JVD and no carotid bruits Resp normal respiratory effort, normal air movement and clear to auscultation bilaterally Cardio regular rate and regular rhythm GI normal to inspection, nondistended, normoactive bowel sounds, non-tender and non-distended Extremity normal capillary refill Extremity Narrative: Right 3rd toe amputation, dressing, boot. 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 Davis, complicated by acute kidney injury, admitted to TCU with debility, here for rehabilitation, strengthening, prior to discharge home with . * Debility - PT/OT. * Pain - Tylenol 1000mg q6 prn pain (1-5), Oxycodone 5mg q4 prn pain (6-10). * Bowel - Miralax 17gm bid, senna/colace 2 tablets bid, Magnesium citrate 300mL daily prn, Soap suds enema x 1. * Adult immunization - Administer pneumonia vaccine, covid vaccine, flu vaccine as appropriate. * DVT prophylaxis - Lovenox 40mg sc daily. * Parkinson Disease - Sinemet 25/250mg 2 tablets bidac. * Vitamin D deficiency - D3 50mcg daily. * Muscle spasm - Flexeril 10mg tid. 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 Davis to follow. * Diabetes Mellitus II - Glimepiride 4mg daily, Jardiance 25mg daily, Glargine 20 units bid. * Diabetic polyneuropathy - Gabapentin 100mg q8. * Hypertension - Propranolol 20mg bid, Lisinopril 20mg daily, HCTZ 25mg daily. * Insomnia - Melatonin 3mg qhs. * GERD - Pantoprazole 20mg daily. * Hyperlipidemia - Pravastatin 20mg qhs. * BPH - Tamsulosin 0.4mg daily.
[2024-10-11] MEDS: Senna/Docusate Sodium 1 Tablet 2 TABLET PO (21:46)
[2024-10-11] MEDS: Polyethylene Glycol 3350 17 GM PACKET PO (21:49)
[2024-10-11] MEDS: 0.9% Saline Lock 10 ML Syringe IV (21:50)
[2024-10-11] MEDS: MELATONIN 3 MG TABLET PO (22:00)
[2024-10-11] MEDS: Insulin Glargine-YFGN 100 UNIT/ML Pen 20 UNIT SC (22:01)
[2024-10-11 22:09] VITALS: BP 169/93; PULSE 85
[2024-10-12 06:21] LABS: Hematocrit 42.6 % (40-54); Hemoglobin 14.3 g/dL (13.0-16.5); Immature Granulocytes Count 0.090 X10^3/uL (0.0-0.0); Mean Corp Hgb Conc 33.6 g/dL (32-36); Mean Corpuscular Volume 90.1 fL (80-94); Mean Platelet Vol. 10.0 fl (6.2-12.0); NRBC Flagged by Analyzer 0 % (0-5); Platelet Count 273 K/mm3 (150-450); RBC Distribution Width CV 12.0 % (11.6-14.6); RBC Distribution Width SD 39.8 fl (35.1-43.9); Red Blood Count 4.73 M/mm3 (4.6-6.2); White Blood Count 7.3 K/mm3 (4.4-11.0)
[2024-10-12 06:55] LABS: Anion Gap 12 (5-15); BUN 24 mg/dL (4-19); BUN/Creat Ratio 25.9 RATIO (10-20); Calcium,Total 8.9 mg/dL (7.6-11.0); Carbon Dioxide 24.8 mmol/L (21.0-32.0); Chloride 105 mmol/L (98-108); Estimated Creatinine Clearance 88.69 ml/min (50-250); Glucose 156 mg/dL (70-99); Potassium 3.7 mmol/L (3.3-5.1)
[2024-10-12 08:21] VITALS: BP 153/79; PULSE 79; RESP 18; TEMP 36.4; O2SAT 93
[2024-10-12] MEDS: Cholecalciferol (VIT D3) 25 MCG TABLET (1,000 UNITS) 50 MCG PO (08:26)
[2024-10-12] MEDS: Senna/Docusate Sodium 1 Tablet 2 TABLET PO (08:26)
[2024-10-12] MEDS: Polyethylene Glycol 3350 17 GM PACKET PO (08:26)
[2024-10-12] MEDS: Insulin Glargine-YFGN 100 UNIT/ML Pen 20 UNIT SC ×2 (08:27→21:55)
[2024-10-12] MEDS: 0.9% Saline Lock 10 ML Syringe IV ×2 (08:35→21:55)
[2024-10-12] MEDS: Tuberculin,Purif.prot.deriv. 50 TU/ML Vial 0.1 ML ID (11:02)
[2024-10-12 20:07] VITALS: PULSE 88; RESP 18; O2SAT 94
[2024-10-12 21:51] VITALS: BP 143/77; PULSE 87
[2024-10-13 02:31] VITALS: PULSE 67; RESP 18; O2SAT 93
[2024-10-13] MEDS: MELATONIN 3 MG TABLET PO (04:03)
--- NOTE | 2024-10-13 07:37 | PCM.PN.DRR ---
Documented by User: Ar Whitman 10/13/24 07:59 TCU RX Drug Regimen Review Subjective/Objective Subjective/Objective Subjective: TCU admission note. 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 Davis, complicated by acute kidney injury, admitted to TCU with debility, here for rehabilitation, strengthening, prior to discharge home with . Objective: Allergies No Known Allergies Allergy (Verified 10/10/24 11:37) Current Medications Generic Name Dose Route Start Last Admin Trade Name Freq PRN Reason Stop Dose Admin Acetaminophen 1,000 mg 10/11/24 16:25 10/13/24 04:03 Acetaminophen 500 Mg Tablet PO 1,000 mg Q6H PRN PRN Administration Pain Score 1-5 Calamine/Phenol 1 applic 10/13/24 10:00 Menthol/Lanolin/Calamine/Znox 113 Gm Tube TOPICAL BID LINO Protocol Carbidopa/Levodopa 2 tablet 10/11/24 16:00 10/13/24 06:09 Carbidopa/Levodopa 25/250 Tablet PO 2 tablet BIDAC LINO Administration Cholecalciferol 50 mcg 10/12/24 10:00 10/12/24 08:26 Cholecalciferol (Vit D3) 25 Mcg Tablet (1,000 Units) PO 50 mcg DAILY LINO Administration Cyclobenzaprine HCl 10 mg 10/11/24 22:00 10/13/24 06:09 Cyclobenzaprine Hcl 10 Mg Tablet PO 10 mg TID LINO Administration Doxycycline Monohydrate 100 mg 10/11/24 22:00 10/12/24 21:54 Doxycycline 100 Mg Capsule PO 10/18/24 10:01 100 mg BID LINO Administration Empagliflozin 25 mg 10/12/24 10:00 10/12/24 08:26 Empagliflozin 25 Mg Tablet PO 25 mg DAILY LINO Administration Enoxaparin Sodium 40 mg 10/12/24 10:00 10/12/24 08:26 Enoxaparin 40 Mg/0.4 Ml Syringe SC 40 mg DAILY LINO Administration Gabapentin 100 mg 10/11/24 22:00 10/13/24 06:07 Gabapentin 100 Mg Capsule PO 100 mg Q8 LINO Administration Glimepiride 4 mg 10/12/24 08:00 10/12/24 08:25 Glimepiride 4 Mg Tablet PO 4 mg DAILYCM LINO Administration Hydrochlorothiazide 25 mg 10/12/24 10:00 10/12/24 08:26 Hydrochlorothiazide 25 Mg Tablet PO 25 mg DAILY LINO Administration Insulin Glargine 20 unit 10/11/24 22:00 10/12/24 21:55 Insulin Glargine-Yfgn 100 Unit/Ml Pen SC 20 unit BID LINO Administration Lisinopril 20 mg 10/12/24 10:00 10/12/24 08:26 Lisinopril 20 Mg Tablet PO 20 mg DAILY LINO Administration Magnesium Citrate 300 ml 10/11/24 16:25 Magnesium Citrate 300 Ml PO DAILY PRN Constipation Melatonin 3 mg 10/11/24 15:40 10/13/24 04:03 Melatonin 3 Mg Tablet PO 3 mg QHS PRN PRN Administration Insomnia Oxycodone HCl 5 mg 10/11/24 15:40 Oxycodone 5 Mg Tablet PO Q4H PRN PRN Pain Score 6-10 or Pre PT/OT Pantoprazole Sodium 20 mg 10/12/24 10:00 10/12/24 08:26 Pantoprazole Sodium 20 Mg Tablet PO 20 mg DAILY LINO Administration Polyethylene Glycol 17 gm 10/11/24 22:00 10/12/24 21:53 Polyethylene Glycol 3350 17 Gm Packet PO Not Given BID LINO Pravastatin Sodium 20 mg 10/12/24 22:00 10/12/24 21:55 Pravastatin 20 Mg Tablet PO 20 mg QHS LINO Administration Propranolol HCl 20 mg 10/11/24 22:00 10/12/24 21:55 Propranolol 10 Mg Tablet PO 20 mg BID LINO Administration Senna/Docusate Sodium 2 tablet 10/11/24 22:00 10/12/24 21:54 Senna/Docusate Sodium 1 Tablet PO Not Given BID LINO Sodium Chloride 10 - 40 ml 10/11/24 15:54 10/12/24 21:55 0.9% Saline Lock 10 Ml Syringe IV 10 ml UD PRN Administration SALINE FLUSH Tamsulosin HCl 0.4 mg 10/12/24 10:00 10/12/24 08:26 Tamsulosin Hcl 0.4 Mg Capsule PO 0.4 mg DAILY LINO Administration Tuberculin PPD 0.1 ml 10/19/24 10:00 Tuberculin,Purif.Prot.Deriv. 50 Tu/Ml Vial ID 10/19/24 10:01 X1 ONE Problem List Neuropathic pain (Acute) Hyperlipidemia (Acute) BPH (benign prostatic hyperplasia) (Acute) Essential (primary) hypertension (Acute) Type 2 diabetes mellitus with hyperglycemia (Acute) Parkinson disease (Acute) Acute kidney injury (Acute) Osteomyelitis of third toe of right foot (Acute) Debility (Acute) Vital Signs Temp Pulse Resp BP Pulse Ox O2 Del Method 97.6 F L 67 18 143/77 H 93 Room Air 10/12/24 08:21 10/13/24 02:31 10/13/24 02:31 10/12/24 21:51 10/13/24 02:31 10/13/24 02:31 Oxygen Delivery Method Room Air Weight: 108.635 kg Body Mass Index (BMI) 33.4 Sodium 142 mmol/L (133-145) 10/12/24 05:59 Potassium 3.7 mmol/L (3.3-5.1) 10/12/24 05:59 Chloride 105 mmol/L (98-108) 10/12/24 05:59 Carbon Dioxide 24.8 mmol/L (21.0-32.0) 10/12/24 05:59 Anion Gap 12 (5-15) 10/12/24 05:59 BUN 24 mg/dL (4-19) H 10/12/24 05:59 Creatinine 0.93 mg/dL (0.70-1.20) 10/12/24 05:59 Est GFR (MDRD) Non-Af 87 (>60) 10/12/24 05:59 BUN/Creatinine Ratio 25.9 RATIO (10-20) H 10/12/24 05:59 Glucose 156 mg/dL (70-99) H 10/12/24 05:59 Assessment/Plan: 1. Pain: acetaminophen 1000 mg PO Q6H PRN pain (1-5), oxycodone 5 mg PO Q4H PRN pain (6-10). The patient has used 1 dose of PRN acetaminophen and 0 doses of PRN oxycodone so far this admission. Please continue to monitor pain levels, PRN medication usage, LFTs (no recent LFTs documented), for constipation, respiratory depression, for dizziness/drowsiness, and for syncope/ataxia/falls. 2. Bowel: polyethylene glycol 17 grams PO daily, senna/docusate 2 tablets PO BID, magnesium citrate 300 mL PO daily PRN constipation. The patient has not required a dose of PRN magnesium citrate, and the patient's last bowel movement was on 10/12/24. Please continue to monitor for PRN medication usage, for bowel movements, for constipation, and diarrhea. 3. DVT prophylaxis: enoxaparin 40 mg SC daily. Please continue to monitor for s/s of a DVT such as pain/erythema/swelling in an extremity, for s/s of bleeding/excessive bruising, hemoglobin levels (Hgb = 14.3 g/dL on ), platelet counts (Plt = 273 K/mm3 on 10/12/24), and renal function (serum creatinine = 0.93 mg/dL with creatinine clearance ~ 89 mL/min on 10/12/24). 4. Parkinson Disease: carbidopa/levodopa 2 tablets PO BIDAC. Please continue to monitor for s/s of Parkinson Disease, for dyskinesias, and akinesias, as well as for dizziness, headaches, and insomnia. 5. Muscle spasms: cyclobenzaprine 10 mg Po TID. Please continue to monitor for muscle spasms, for drowsiness, fatigue, headaches, and dizziness, 6. 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 Please continue to monitor for s/s of infection in foot, fever (T = 97.6 F on 10/12/24), chills, WBC counts (WBC = 7.3 K/mm3 on 10/12/24), for photosensitivity, and for GI distress with doxycycline administration. 7. Diabetes Mellitus II: glimepiride 4 mg PO daily with meals, insulin glargine 20 units SC BID, empagliflozin 25 mg PO daily. Please continue to monitor BG levels (recent POC BG = 135-328 mg/dL) hemoglobin A1C levels (A1C = 8.7% on 10/05/24), renal function (serum creatinine = 0.93 mg/dL with creatinine clearance ~ 89 mL/min on 10/12/24), for s/s of hypoglycemia, and for s/s of genitourinary infections. The patient's blood glucose levels have been elevated during admission. Please consider increasing insulin glargine dose to 25 units SC BID and monitoring for s/s of hypo/hyperglycemia. 8. Diabetic polyneuropathy: gabapentin 100 mg PO TID. Please continue to monitor for nerve pain, for dizziness/drowsiness, renal function (serum creatinine = 0.93 mg/dL with creatinine clearance ~ 89 mL/min on 10/12/24), and for lower extremity edema. 9. Hypertension: hydrochlorothiazide 25 mg PO daily, lisinopril 20 mg PO daily, propranolol 20 mg PO BID. Please continue to monitor blood pressures (143-187/77-93 mmHg), heart rates (recent range = 65-88 beats/min), renal function (serum creatinine = 0.93 mg/dL with creatinine clearance ~ 89 mL/min on 10/12/24), sodium levels (Na = 142 mmol/L on 10/12/24), potassium levels (K = 3.7 mmol/L on 10/12/24), for angioedema, dry cough, and drowsiness. Since admission to TCU the patient's blood pressures have been elevated. Please consider increasing the patient's lisinopril to 30 mg PO daily and closely monitoring blood pressures. 10. Hyperlipidemia: pravastatin 20 mg PO QHS. Please continue to monitor lipid levels (no recent lipid levels documented), LFTs (no recent LFTs documented), and for myalgias. 11. BPH: tamsulosin 0.4 mg PO daily. Please continue to monitor for urinary retention, and for s/s of orthostasis. 12. GERD: pantoprazole 40 mg PO daily. Please continue to monitor for s/s of GERD, for diarrhea that could indicate clostridium difficile infection, and for s/s of bone resorption such as fractures. 13. Vitamin D deficiency: cholecalciferol 50 mcg PO daily. Please continue to monitor vitamin D levels (no recent vitamin D levels documented), and for s/s of vitamin D deficiency. 14. Insomnia: melatonin 3 mg PO QHS PRN insomnia. The patient has used 2 doses of melatonin so far this admission. Please continue to monitor for insomnia, PRN medication usage, and for drowsiness. 15. Skin health: calmoseptine 1 application topically BID. Please continue to monitor skin health. Assessment/Plan for indications treated with psychotropic medications: NA Medical chart and medication regimen reviewed. The following medication irregularities or issues were identified: 1. Diabetes Mellitus II: glimepiride 4 mg PO daily with meals, insulin glargine 20 units SC BID, empagliflozin 25 mg PO daily. The patient's blood glucose levels have been elevated during admission. Please consider increasing insulin glargine dose to 25 units SC BID and monitoring for s/s of hypo/hyperglycemia. 2. Hypertension: hydrochlorothiazide 25 mg PO daily, lisinopril 20 mg PO daily, propranolol 20 mg PO BID. Since admission to TCU the patient's blood pressures have been elevated. Please consider increasing the patient's lisinopril to 30 mg PO daily and closely monitoring blood pressures. Date Date of Note: 10/13/24 Documented by User: Dr. Ion Vega MD 10/13/24 10:10 TCU RX Drug Regimen Review Provider Comments Provider responsibility Provider Comments to Recommendations by Pharmacy Agree
[2024-10-13 08:51] VITALS: BP 147/82; PULSE 82; RESP 17; TEMP 36.3; O2SAT 93
[2024-10-13] MEDS: Cholecalciferol (VIT D3) 25 MCG TABLET (1,000 UNITS) 50 MCG PO (08:58)
[2024-10-13] MEDS: Insulin Glargine-YFGN 100 UNIT/ML Pen 20 UNIT SC (08:58)
[2024-10-13] MEDS: Senna/Docusate Sodium 1 Tablet 2 TABLET PO (08:59)
[2024-10-13] MEDS: 0.9% Saline Lock 10 ML Syringe IV ×2 (09:01→22:18)
--- NOTE | 2024-10-13 11:33 | NURSING ---
dr helton notified of blood sugar 358, new order to administer humalog 10 units x1. pt updated.
--- NOTE | 2024-10-13 16:04 | NURSING ---
pt assisted to BR x2 assist with walker. pt ambulated to and from BR without loss of balance. pt was incont of urine, incont care provided. at side. asking about dressing changes to rt foot. explained that order is for changing every 3 days, due tomorrow. verbalized understanding.
--- NOTE | 2024-10-13 16:55 | NURSING ---
Lab called reporting bone culture results of staph aureus & serratia. dr hendricks television production clerk, paged via centerless grinder operator, awaiting return call.
--- NOTE | 2024-10-13 17:48 | NURSING ---
Dr White returned call with new orders to start levofloxacin 500mg daily x7 days and consult dr reich.
[2024-10-13] MEDS: Insulin Glargine-YFGN 100 UNIT/ML Pen 25 UNIT SC (22:16)
[2024-10-13 22:26] VITALS: BP 141/75; PULSE 77
[2024-10-14] MEDS: Cholecalciferol (VIT D3) 25 MCG TABLET (1,000 UNITS) 50 MCG PO (10:47)
[2024-10-14] MEDS: Polyethylene Glycol 3350 17 GM PACKET PO (10:48)
[2024-10-14] MEDS: Insulin Glargine-YFGN 100 UNIT/ML Pen 25 UNIT SC ×2 (10:49→21:52)
[2024-10-14 13:36] VITALS: BP 134/75; PULSE 93; RESP 16; TEMP 36.6; O2SAT 98
[2024-10-14 19:33] VITALS: PULSE 87; RESP 16; O2SAT 94
[2024-10-14 21:46] VITALS: BP 153/77; PULSE 91
[2024-10-14] MEDS: MELATONIN 3 MG TABLET PO (21:53)
[2024-10-15 02:22] VITALS: PULSE 65; RESP 18; O2SAT 97
--- NOTE | 2024-10-15 07:19 | NURSING ---
Written communication left for Dr. Vega regarding pt complaining of difficulty sleeping despite PRN Melatonin dose given at HS last night.
[2024-10-15 08:33] VITALS: BP 128/69; PULSE 75; RESP 18; TEMP 35.4; O2SAT 98
[2024-10-15] MEDS: Insulin Glargine-YFGN 100 UNIT/ML Pen 25 UNIT SC ×2 (08:37→21:49)
[2024-10-15] MEDS: Polyethylene Glycol 3350 17 GM PACKET PO (08:38)
[2024-10-15] MEDS: Cholecalciferol (VIT D3) 25 MCG TABLET (1,000 UNITS) 50 MCG PO (08:39)
--- NOTE | 2024-10-15 10:08 | NURSING ---
Entomology Teacher Note; Activity Asset: Anastacio Sims is independent in his choice of daily activities. He stated he enjoys watching you tube, women's LENO. He has his smartphone, has a hard time sleeping and was informed he may call staff and have them sit him in the dayroom if he can not sleep to watch the big tv. Bethany welcomes the therapy dog and plasterer foreman when available. Staff will remind him of weekly activities and respect his right to say no.
--- NOTE | 2024-10-15 10:35 | PCM.PN.ID ---
Physical Exam Narrative Feeling better, no pain in foot, no fever, no n/v/d. Const alert and no apparent distress General Appearance: cooperative Resp normal air movement and clear to auscultation bilaterally Cardio regular rate and regular rhythm GI soft to palpation, non-tender and non-distended Skin Skin Narrative: R foot wrapped ID ID: Route of nutrition/ use of supplements: [] Nutritional Intake: [] IV Site: [] [place]ios Catheter: [] Assessment & Plan Assessment/Plan (1) Osteomyelitis of third toe of right foot: PLAN: R 3rd toe osteo. 09/10/24 wound cx with MRSA. OR 10/10/[address] Davis for toe amputation. Surg cx with MSSA, serratia, and MRSE. I do not see pending pathology results. MRSE was only in tissue culture, but R to doxy and bactrim. Unable to use linezolid due to interaction with Sinemet. Had been on vanc while inpatient, so was covered during that time and no residual infection seen in OR at margin. Cont doxy and levaquin for one week total. Will follow
--- NOTE | 2024-10-15 11:11 | MDS.RN ---
MDS tracker assessment complete, Pain assessed.
--- NOTE | 2024-10-15 11:33 | CASEMGMT ---
Social Work PAUL met with pt and completed initial assessment. Contacts were verified and updated in system. Pt states code status as DNRCCA. PAUL spoke with pt's who confirms pt has completed HCPOA and Living Will. PAUL requested these documents be brought in for scanning into the medical record. PAUL educated pt to Medicare benefit and copay coverage and encouraged pt to contact secondary insurance for copay coverage. Pt's goal is to return home with spouse. PAUL will continue to follow for DC planning. JESSICA Estrada
--- NOTE | 2024-10-15 11:37 | NURSING ---
Offered covid vaccine, VIS provided. Resident declines.
[2024-10-15 15:48] VITALS: BMI 32.5
[2024-10-15 21:40] VITALS: BP 127/80; PULSE 83
[2024-10-16] MEDS: Polyethylene Glycol 3350 17 GM PACKET PO (08:44)
[2024-10-16] MEDS: Cholecalciferol (VIT D3) 25 MCG TABLET (1,000 UNITS) 50 MCG PO (08:44)
--- NOTE | 2024-10-16 09:37 | CASEMGMT ---
Social Work IDT met with patient and at bedside, then STEF via conference call for care plan meeting. Discussed patient's progress in PT/OT/ST/SN/RDN. Educated to Medicare benefit. Provided pt/family with written communication of insurance process and copay coverage during stay. Pt's goal is to return home with . Pt has wounds and two oral ATB. Pt is right LE WBAT with surgical shoe. Pt currently is x1-2 assist. Pt will continue with therapy and nursing care. SW provided resources on Parkinson's support group and classes. OT recommended starting with HHC at DC then transition to OP therapy. SW will coordinate DC plans once pt is ready. Will continue to follow. Nayeli Michelle WALL COVERING INSTALLER CLINICAL OPERATIONS SPECIALIST
[2024-10-16 10:00] VITALS: BP 109/66; PULSE 83; RESP 16; TEMP 36.4; O2SAT 94
[2024-10-16 21:20] VITALS: BP 127/82; PULSE 83
[2024-10-16] MEDS: MELATONIN 3 MG TABLET 10 MG PO (21:24)
[2024-10-16] MEDS: Glycerin/Hypromellose/PEG400 15 ml Bottle 2 DRP EACH EYE (21:25)
[2024-10-16] MEDS: Insulin Glargine-YFGN 100 UNIT/ML Pen 25 UNIT SC (21:32)
[2024-10-16 21:45] VITALS: PULSE 62; RESP 17; O2SAT 94
[2024-10-17 01:21] VITALS: PULSE 65; RESP 18; O2SAT 96
[2024-10-17] MEDS: Polyethylene Glycol 3350 17 GM PACKET PO (08:03)
[2024-10-17 08:04] VITALS: BP 100/70; PULSE 78; RESP 16; TEMP 36.4; O2SAT 93
[2024-10-17] MEDS: Glycerin/Hypromellose/PEG400 15 ml Bottle 2 DRP EACH EYE ×2 (08:06→23:04)
[2024-10-17] MEDS: Cholecalciferol (VIT D3) 25 MCG TABLET (1,000 UNITS) 50 MCG PO (08:08)
[2024-10-17] MEDS: Insulin Glargine-YFGN 100 UNIT/ML Pen 25 UNIT SC ×2 (08:09→23:03)
--- NOTE | 2024-10-17 14:14 | WOUNDNOTE ---
wound photo: right foot
--- NOTE | 2024-10-17 14:14 | CHAPLAIN ---
Type of Pastoral Visit _x__ Initial Visit ___ Follow-up Visit ___ On-call Visit ___ General Patient Visit ___ Spiritual Assessment ___ Family Conference ___ Bereavement ___ Rapid Response ___ Code Blue ___ Other (describe below) Pastoral Care Referral From _x__ Patient ___ Family ___ Nurse ___ Physician ___ Program Management Analyst ___ Baller Tender ___ Other (describe below) Sacrament/Intervention _x__ Active listening ___ Anointing ___ Mormonism ___ Bereavement ___ Communion _x__ [place]ham exploration ___ _x__ Life review _x__ Prayer ___ Reconciliation ___ Sacrament of Sick ___ Supportive presence ___ Wedding ___ Other (describe below) Pastoral Comments patient and spouse are in the room and both report on positive experience and great care from staff thus far; pt gives permission for his to explain his health story with Parkinson's and diabetes; 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
--- NOTE | 2024-10-17 14:15 | WOUNDNOTE ---
wound photo: right foot
--- NOTE | 2024-10-17 14:15 | WOUNDNOTE ---
wound photo: right Achilles area
[2024-10-17] MEDS: MELATONIN 10 MG TABLET PO (23:04)
[2024-10-17 23:10] VITALS: BP 122/61; PULSE 68
--- NOTE | 2024-10-18 09:00 | NURSING ---
Databases Computer Consultant Note; MDS for 10/18/2024 Complete
[2024-10-18 09:46] VITALS: BP 128/72; PULSE 81; RESP 16; TEMP 36.3; O2SAT 95
[2024-10-18] MEDS: Glycerin/Hypromellose/PEG400 15 ml Bottle 2 DRP EACH EYE ×2 (10:11→22:03)
[2024-10-18] MEDS: Insulin Glargine-YFGN 100 UNIT/ML Pen 30 UNIT SC ×2 (10:12→22:07)
[2024-10-18] MEDS: Polyethylene Glycol 3350 17 GM PACKET PO (10:12)
[2024-10-18] MEDS: Cholecalciferol (VIT D3) 25 MCG TABLET (1,000 UNITS) 50 MCG PO (10:13)
--- NOTE | 2024-10-18 14:50 | PCM.CONS.GEN ---
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 Sutures intact third digit amputation stump. Erythema about the ankle is resolved in addition to continued improvement in swelling. Tenderness is improving about his ankle, but still present at lateral malleolus and medial malleolus. Dressing changed 10/17/24 by wound nurse consisting of Betadine soaked Adaptic, 4 x 4 gauze, Kerlix, ABD, and 4 inch Louis wrap rolled onto the foot. Nursing may continue to change dressing every 3 days On 10/05/2024 ESR noted to be elevated at 251 and ESR at 37 MRI was obtained 10/07/2024 demonstrating likely osteomyelitis of the remaining osseous structures of the middle and distal phalanx of the third digit of the right foot. I have reviewed imaging osteomyelitis is questionable however given concern over any recurrence and for definitive treatment patient is agreeable to amputation of the third digit. Wound Culture did demonstrate MSRA Surgical cultures obtained 10/10/2024: Tissue third digit to micro, demonstrates MSSA, Serratia, MRSE; distal phalanx bone third digit to micro, MSSA and Serratia; base of the proximal phalanx third digit to pathology, demonstrates chronic osteomyelitis with marrow edema. Currently on oral doxycycline and Levaquin for 7 days per ID management Medicine team following for medical management, they are greatly appreciated. Infectious disease following for antibiotic management Wound nurse following for assistance in dressing changes Patient is to continue to elevate the right foot at all times rest for postoperative edema control May apply ice behind the right knee for postoperative pain control He is to keep all dressings clean, dry, and intact to the right foot He may continue ambulation in a protected weightbearing status utilizing his surgical shoe to the right foot. This will aid in decreasing fall due to his Parkinson's. May continue working with therapy to increase strength and rehabilitation prior to his discharge home Discussed with the patient expected suture removal in 2 weeks Due to continued pain/discomfort in the ankle with movement and palpation to the medial and lateral malleoli will order repeat radiographs of the right ankle and right foot to evaluate for fracture. Will continue to follow while in TCU weekly. Reach out to Dr. Davis for any questions or concerns. Rich Davis Jr. Mehrna. [facility] [place] [phone] HPI Consult Data Date of Consult: 10/18/24 HPI Narrative Reason for Consultation: Continued care s/p third digit amputation right foot HPI Narrative: AMBROCIO JEFFERS, is a 74 M who presents to the transitional care unit by way of [facility] for continued care s/p third digit amputation of the right foot in addition to strengthening and rehabilitation prior to discharge home. He has PM Hx of DM type II with peripheral polyneuropathy, Parkinson's disease, Hx of falls secondary to Parkinson's, HTN. Patient first reported to [facility] on 10/05/2024 for increasing redness of the right lower extremity. He had previously followed with Dr. Morgan in office and underwent debridement on 10/01/2024. Morning of 10/03/2024 he did fall resulting in some redness around the ankle and pain in the ankle and foot but reported that the redness had started the night prior despite being on oral doxycycline. Earlier of oral antibiotics he presented to [facility] and was subsequently admitted and started on IV antibiotic. Radiographs were negative for acute osseous pathology. However he did have inflammatory markers which were noted to be elevated with ESR of 37 and CRP of 251. Did undergo subsequent MRI demonstrating likely osteomyelitis of the distal phalanx middle phalanx and head of the proximal phalanx of the third digit. He then underwent third digit amputation with ma on 10/10/2024. He did continue IV antibiotics while is in and was then transferred to TCU for continued care and therapy prior to his discharge home. [facility] Medical History (Updated 10/18/24 @ 15:[address] Rich Davis, DPMauro) Parkinson disease Hypertension Diabetes Home Medications ?Medication ?Instructions ?Recorded ?Last Taken ?Type carbidopa 25 mg-levodopa 250 mg 2 tab PO BID parkinsons 03/10/20 10/11/24 History tablet glimepiride 4 mg tablet 4 mg PO DAILY diabetes 03/10/20 10/05/24 History lisinopril 20 1 tab PO DAILY blood pressure 03/10/20 10/05/24 History mg-hydrochlorothiazide 25 mg tablet tamsulosin 0.4 mg capsule 0.4 mg PO Q24H retention 03/10/20 10/11/24 History cholecalciferol (vitamin D3) 50 50 mcg PO DAILY supplement 11/09/22 10/11/24 History mcg (2,000 unit) tablet empagliflozin 25 mg tablet 25 mg PO DAILY diabetes 11/09/22 10/05/24 History (Jardiance) gabapentin 100 mg capsule 100 mg PO Q8H pain/neurapathy 11/09/22 10/11/24 History pravastatin 20 mg tablet 20 mg PO DAILY cholesterol 11/09/22 10/10/24 History cyclobenzaprine 10 mg tablet 10 mg PO TID pain 10/05/24 10/11/24 History omeprazole 20 mg capsule,delayed 20 mg PO DAILY heartburn 10/05/24 10/11/24 History release propranolol 20 mg tablet 20 mg PO BID blood pressure 10/05/24 10/11/24 History acetaminophen 500 mg tablet 1,000 mg (2 x 500 mg) PO Q8 PRN 10/11/24 10/11/24 Rx pain #0 tabs doxycycline monohydrate 100 mg 100 mg PO BID infection #14 caps 10/11/24 10/11/24 Rx capsule enoxaparin 40 mg/0.4 mL 40 mg (0.4 mL) subcut DAILY blood 10/11/24 10/11/24 Rx subcutaneous syringe thinner #0 mL insulin glargine-yfgn 100 unit/mL 20 unit (0.2 mL) subcut BID Blood 10/11/24 10/11/24 Rx (3 mL) subcutaneous pen sugar #0 mL insulin lispro 100 unit/mL See Protocol subcut ACHS Blood 10/11/24 10/11/24 Rx subcutaneous pen (Humalog KwikPen sugar #0 mL (U-100) Insulin) melatonin 3 mg tablet 3 mg PO QHS PRN PRN Insomnia #0 10/11/24 Unknown Rx tabs oxycodone 5 mg tablet 5 mg PO Q4H PRN PRN Pain Score 10/11/24 10/11/24 Rx 1-10 3 days #12 tabs Allergy/AdvReac Type Severity Reaction Status Date / Time No Known Allergies Allergy Verified 10/10/24 11:37 Surgical History History of partial amputation of toe of right foot h/o appendectomy Social History (Updated 10/11/24 @ 16:[address] Ion Vega MD) household members: spouse Smoking Status: Never smoker alcohol intake: never substance use type: does not use ROS Constitutional Constitutional: Denies body ache(s), chills or fever(s) Eyes Eyes: Denies burning, diplopia or loss of vision ENT HEENT: Denies dysphagia, nasal congestion, rhinorrhea or sore throat Cardiovascular Cardiovascular: Denies chest pain, claudication or palpitations Respiratory/Chest Respiratory/Chest: Denies cough, dyspnea, shortness of breath at rest or wheezing Gastrointestinal Gastrointestinal: Denies abdominal pain, constipation, diarrhea, nausea or vomiting Genitourinary Genitourinary: Denies dysuria, hematuria or urinary urgency Musculoskeletal Musculoskeletal: Reports extremity pain; Denies joint pain, joint stiffness or joint swelling Integumentary Integumentary: Denies jaundice, pruritus or rash Neurologic Neurologic: Denies dizziness, numbness or seizures Psychiatric Psychiatric: Denies anxiety or depression Endocrine Endocrinology: Denies polydipsia, polyphagia or polyuria Hematologic/Lymphatic Hematologic/Lymphatic: Denies easy bleeding or easy bruising Allergic/Immunologic Allergic/Immunologic: Denies urticaria or wheezing Physical Exam Const alert, oriented x3 and no apparent distress General Appearance: cooperative HEENT normocephalic Eyes Eyes Narrative: Wears glasses General Eye: normal appearance of both eyes Neck General: normal visual inspection Lymph Lymphatic: no lymphadenopathy noted and no lymphedema noted Resp normal respiratory effort Cardio regular rate and regular rhythm Extremity no calf tenderness Extremity Narrative: Bilateral lower extremity: Vascular: DP and PT pulses weakly palpable. CFT less than 5 seconds to the digits. Normal temperature gradient. Hair growth is diminished to digits and foot Neurologic: Gross sensation is intact. Protective sensation is diminished secondary to diabetic peripheral polyneuropathy Musculoskeletal: Third digit amputation of the right foot noted. Negative Jaramillo sign, negative Homans' sign. Pain to palpation about the lateral ankle, anterior ankle, and medial ankle right lower extremity. Dermatological: There is resolution of erythema about the ankle to just above the ankle mortise/distal tibia right lower extremity. This has receded and resolved from the previous line of demarcation consistent with resolving cellulitis. Third digit amputation of the right foot is appreciated with intact sutures overlying the amputation site. There is no surrounding erythema of the digit or foot, no purulent drainage from the digit site, no foul odor noted. No pain to palpation about the surgical site. Skin no rashes or lesions noted Neuro moves all extremities Lab / Micro Data 10/12/24 05:59 10/12/24 05:59 Labs: Laboratory Results - last 24 hr 10/17/24 16:01: POC Glucose 214 H 10/17/24 21:09: POC Glucose 246 H 10/18/24 05:05: POC Glucose 232 H 10/18/24 06:23: POC Glucose 244 H 10/18/24 11:38: POC Glucose 272 H
--- NOTE | 2024-10-18 15:30 | RAD_ITS ---
EXAM: XR Right Foot Complete, 3 or More Views CLINICAL INDICATION: CONTINUED FOOT PAIN TECHNIQUE: Frontal, lateral and oblique views of the right foot. COMPARISON: No relevant prior studies available. FINDINGS: BONES/JOINTS: Mild degenerative changes of the 1st metacarpophalangeal joint. Mild degenerative changes of the distal interphalangeal joints. Mild hallucis valgus deformity of the 1st toe. Amputation of the 3rd metatarsophalangeal joint. No acute fracture. No dislocation. SOFT TISSUES: Soft tissue swelling. RAD/Foot min 3 Views IMPRESSION: 1. Soft tissue swelling. 2. Postoperative changes as above. Reading Location: [id number]
--- NOTE | 2024-10-18 15:30 | RAD_ITS ---
EXAM: XR Right Ankle Complete, 3 or More Views CLINICAL INDICATION: CONTINUED ANKLE PAIN TECHNIQUE: Frontal, lateral and oblique views of the right ankle. COMPARISON: No relevant prior studies available. FINDINGS: BONES/JOINTS: Unremarkable. No dislocation. No acute fracture. SOFT TISSUES: Soft tissue swelling. VASCULATURE: Vascular calcification. RAD/Ankle min 3 Views IMPRESSION: No acute fracture. Soft tissue swelling. Reading Location: [id number]
--- NOTE | 2024-10-18 18:56 | NURSING ---
Dr. Cordoba in this afternoon and ordered ankle and foot x-rays. Sutures probable to be removed in [address] Davis will continue to see weekly.
[2024-10-18 21:00] VITALS: O2SAT 96
[2024-10-18 22:01] VITALS: BP 120/75; PULSE 99
[2024-10-18] MEDS: MELATONIN 10 MG TABLET PO (22:15)
[2024-10-19 03:47] VITALS: PULSE 82; O2SAT 94
--- NOTE | 2024-10-19 06:45 | NURSING ---
Patient's AM blood sugar was 70, Apple juice and oj doone given, recheck blood sugar was 83. Dr. Vega updated via written communication.
[2024-10-19] MEDS: Polyethylene Glycol 3350 17 GM PACKET PO (09:54)
[2024-10-19] MEDS: Insulin Glargine-YFGN 100 UNIT/ML Pen 30 UNIT SC ×2 (09:56→22:02)
[2024-10-19] MEDS: Cholecalciferol (VIT D3) 25 MCG TABLET (1,000 UNITS) 50 MCG PO (09:56)
[2024-10-19] MEDS: Glycerin/Hypromellose/PEG400 15 ml Bottle 2 DRP EACH EYE ×2 (09:57→21:48)
[2024-10-19] MEDS: Tuberculin,Purif.prot.deriv. 50 TU/ML Vial 0.1 ML ID (10:31)
--- NOTE | 2024-10-19 11:44 | NURSING ---
Patient was complaining of increased pain since yesterday evening -10/23. reporting worsened with ambulation, decreased ability for therapy. He is taking his scheduled pain medication and this is not helping as well as it had prior. Annabelle PADRON spoke with Dr. Vega and received updated orders for pain control
[2024-10-19 13:10] VITALS: BP 112/59; PULSE 79; RESP 18; TEMP 36.6; O2SAT 100
[2024-10-19 21:45] VITALS: BP 118/65; PULSE 82
[2024-10-19] MEDS: MELATONIN 10 MG TABLET PO (21:57)
[2024-10-20 06:37] VITALS: PULSE 64; O2SAT 95
[2024-10-20] MEDS: Polyethylene Glycol 3350 17 GM PACKET PO (09:51)
[2024-10-20] MEDS: Insulin Glargine-YFGN 100 UNIT/ML Pen 30 UNIT SC ×2 (09:51→21:41)
[2024-10-20] MEDS: Senna/Docusate Sodium 1 Tablet 2 TABLET PO (09:52)
[2024-10-20] MEDS: Cholecalciferol (VIT D3) 25 MCG TABLET (1,000 UNITS) 50 MCG PO (09:53)
[2024-10-20] MEDS: Glycerin/Hypromellose/PEG400 15 ml Bottle 2 DRP EACH EYE ×2 (09:54→21:26)
[2024-10-20 16:00] VITALS: BP 116/70; PULSE 80; RESP 18; TEMP 36.3; O2SAT 98
[2024-10-20 21:21] VITALS: BP 113/61; PULSE 88
[2024-10-20] MEDS: MELATONIN 10 MG TABLET PO (21:34)
[2024-10-21 08:29] VITALS: BP 98/68; PULSE 78; RESP 16; TEMP 36.2; O2SAT 95
[2024-10-21] MEDS: Polyethylene Glycol 3350 17 GM PACKET PO (08:33)
[2024-10-21] MEDS: Insulin Glargine-YFGN 100 UNIT/ML Pen 30 UNIT SC ×2 (08:34→21:28)
[2024-10-21] MEDS: Glycerin/Hypromellose/PEG400 15 ml Bottle 2 DRP EACH EYE ×2 (08:36→21:11)
[2024-10-21] MEDS: Cholecalciferol (VIT D3) 25 MCG TABLET (1,000 UNITS) 50 MCG PO (08:36)
[2024-10-21 10:00] VITALS: BP 92/52; BP 94/73; PULSE 81; PULSE 82
[2024-10-21 11:47] VITALS: RESP 17; O2SAT 95
--- NOTE | 2024-10-21 12:31 | WOUNDNOTE ---
wound photo: right foot
--- NOTE | 2024-10-21 12:32 | WOUNDNOTE ---
wound photo: right foot
--- NOTE | 2024-10-21 12:32 | WOUNDNOTE ---
wound photo: right Achilles
--- NOTE | 2024-10-21 14:13 | NURSING ---
pt with involuntary rhythmic movement/turning of head this AM, states not new. pt and bought a neck pillow that helps it. extrusion die corrector reported that pt upset regarding his lunch tray. ELECTRICAL RESEARCH ENGINEER woke pt from a deep sleep to let him know his meal was here. When staff returned to pick up driver tray, pt agitated stating that he did not order this and who gives trays with food 1/2 eaten. pt had a whole grilled cheese sandwich, tomato soup & applesauce when delivered to his room. pt had ate all of the grilled cheese sandwich but the crust. soup looked like it had not been touched. pt requesting a cheeseburger. ordered for pt. But fixated on that he did not get what he ordered and why he was given someone else's tray. will continue to monitor. pt denies pain today.
[2024-10-21 14:37] VITALS: BP 104/62; PULSE 94
--- NOTE | 2024-10-21 14:59 | NURSING ---
here, discussed meal concern. states he has done this in past but not often. feels he needs to get out of his room. pt assisted x2 staff to WC, took pt off floor to go outside for fresh air.
[2024-10-21 21:07] VITALS: BP 114/72; PULSE 99
[2024-10-21] MEDS: MELATONIN 10 MG TABLET PO (21:20)
[2024-10-22 09:25] VITALS: BP 104/57; PULSE 73; RESP 17; TEMP 36.4; O2SAT 92
[2024-10-22] MEDS: Insulin Glargine-YFGN 100 UNIT/ML Pen 30 UNIT SC ×2 (09:27→22:50)
[2024-10-22] MEDS: Cholecalciferol (VIT D3) 25 MCG TABLET (1,000 UNITS) 50 MCG PO (09:28)
[2024-10-22] MEDS: Glycerin/Hypromellose/PEG400 15 ml Bottle 2 DRP EACH EYE ×2 (09:29→22:52)
[2024-10-22] MEDS: Polyethylene Glycol 3350 17 GM PACKET PO (09:29)
[2024-10-22 15:00] VITALS: BMI 32.8
[2024-10-22] MEDS: MELATONIN 10 MG TABLET PO (22:51)
[2024-10-22 23:03] VITALS: BP 136/76; PULSE 73
[2024-10-22 23:20] VITALS: PULSE 65; RESP 16; O2SAT 96
[2024-10-23 07:40] VITALS: BP 121/62; PULSE 57; RESP 16; TEMP 36.3; O2SAT 95
[2024-10-23] MEDS: Glycerin/Hypromellose/PEG400 15 ml Bottle 2 DRP EACH EYE ×2 (07:43→22:07)
[2024-10-23] MEDS: Polyethylene Glycol 3350 17 GM PACKET PO (07:44)
[2024-10-23] MEDS: Insulin Glargine-YFGN 100 UNIT/ML Pen 30 UNIT SC ×2 (07:45→22:14)
[2024-10-23] MEDS: Cholecalciferol (VIT D3) 25 MCG TABLET (1,000 UNITS) 50 MCG PO (07:46)
--- NOTE | 2024-10-23 08:43 | MDS.RN ---
Information for the MDS was obtained from review of the clinical record, interview of resident, staff, and direct observation of resident?s care.
[2024-10-23 22:04] VITALS: BP 134/74; PULSE 79
[2024-10-23] MEDS: MELATONIN 10 MG TABLET PO (22:06)
[2024-10-24 08:55] VITALS: BP 122/67; PULSE 71; RESP 16; TEMP 36.1; O2SAT 96
[2024-10-24] MEDS: Polyethylene Glycol 3350 17 GM PACKET PO (08:58)
[2024-10-24] MEDS: Cholecalciferol (VIT D3) 25 MCG TABLET (1,000 UNITS) 50 MCG PO (08:59)
[2024-10-24] MEDS: Glycerin/Hypromellose/PEG400 15 ml Bottle 2 DRP EACH EYE ×2 (08:59→21:16)
[2024-10-24] MEDS: Insulin Glargine-YFGN 100 UNIT/ML Pen 30 UNIT SC ×2 (08:59→21:20)
[2024-10-24 15:16] VITALS: PULSE 78; RESP 18; O2SAT 98
[2024-10-25 09:49] VITALS: BP 108/74; PULSE 78; RESP 18; TEMP 35.9; O2SAT 96
[2024-10-25] MEDS: Glycerin/Hypromellose/PEG400 15 ml Bottle 2 DRP EACH EYE ×2 (09:51→22:14)
[2024-10-25] MEDS: Cholecalciferol (VIT D3) 25 MCG TABLET (1,000 UNITS) 50 MCG PO (09:52)
[2024-10-25] MEDS: Polyethylene Glycol 3350 17 GM PACKET PO (09:52)
[2024-10-25] MEDS: Insulin Glargine-YFGN 100 UNIT/ML Pen 30 UNIT SC ×2 (09:53→22:22)
--- NOTE | 2024-10-25 13:20 | WOUNDNOTE ---
Dressing changed to right foot by nursing on 10/24/24. orders are for every 3 day changes. will leave intact.
--- NOTE | 2024-10-25 17:12 | PCM.PROGNOTE ---
Subjective Subjective Patient seen resting in Elda chair at bedside with feet elevated. Reports the dressings were changed earlier by the wound care nurse. States that his ankle pain is improving following adjustment of the nerve medication. Denies constitutional symptoms. Denies further complaints. Objective Data Objective Data Vital Signs: Vital Signs Temp Pulse Resp BP Pulse Ox O2 Del Method 96.7 F L 78 18 108/74 96 Room Air 10/25/24 09:49 10/25/24 09:49 10/25/24 09:49 10/25/24 09:49 10/25/24 09:49 10/25/24 09:49 Oxygen Delivery Method Room Air Weight: 106.594 kg Body Mass Index (BMI) 32.8 Intake & Output: Intake and Output for Last 24 Hours 10/23/24 10/24/24 10/25/24 23:59 23:59 23:59 Intake Total 1120 / 1120 702 / 702 680 / 680 Output Total 200 / 200 Balance 920 / 920 702 / 702 680 / 680 Lab / Micro Data 10/12/24 05:59 10/12/24 05:59 Labs: Laboratory Results - last 24 hr 10/24/24 16:46: POC Glucose 194 H 10/24/24 21:15: POC Glucose 174 H 10/25/24 06:09: POC Glucose 122 H 10/25/24 11:22: POC Glucose 178 H 10/25/24 16:10: POC Glucose 184 H Physical Exam Const alert, oriented x3 and no apparent distress General Appearance: cooperative HEENT normocephalic Eyes Eyes Narrative: Wears glasses General Eye: normal appearance of both eyes Neck General: normal visual inspection Lymph Lymphatic: no lymphadenopathy noted and no lymphedema noted Resp normal respiratory effort Cardio regular rate and regular rhythm Extremity no calf tenderness Extremity Narrative: Bilateral lower extremity: Vascular: DP and PT pulses weakly palpable. CFT less than 5 seconds to the digits. Normal temperature gradient. Hair growth is diminished to digits and foot Neurologic: Gross sensation is intact. Protective sensation is diminished secondary to diabetic peripheral polyneuropathy Musculoskeletal: Third digit amputation of the right foot noted. Negative Jaramillo sign, negative Homans' sign. Pain to palpation about the lateral ankle, anterior ankle, and medial ankle right lower extremity. Dermatological: There is resolution of erythema about the ankle to just above the ankle mortise/distal tibia right lower extremity. This had receded and resolved from the previous line of demarcation consistent with resolving cellulitis. Third digit amputation of the right foot is appreciated with intact sutures overlying the amputation site. There is no surrounding erythema of the digit or foot, no purulent drainage from the digit site, no foul odor noted. No pain to palpation about the surgical site. Edema about the ankle is much improved. 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 Did have repeat radiographs obtained 10/19/2024 which were negative for acute osseous pathology. Findings were discussed with patient at bedside. Sutures intact third digit amputation stump. Erythema about the ankle has resolved in addition to continued improvement in swelling. Tenderness is improving about his ankle following adjustment of nerve medications and continued elevation. Dressing changed 10/28/24 by wound nurse consisting of Betadine soaked Adaptic, 4 x 4 gauze, Kerlix, ABD, and 4 inch Louis wrap rolled onto the foot. Nursing may continue to change dressing every 3 days On 10/05/2024 ESR noted to be elevated at 251 and ESR at 37 MRI was obtained 10/07/2024 demonstrating likely osteomyelitis of the remaining osseous structures of the middle and distal phalanx of the third digit of the right foot. I have reviewed imaging osteomyelitis is questionable however given concern over any recurrence and for definitive treatment patient is agreeable to amputation of the third digit. Wound Culture did demonstrate MSRA Surgical cultures obtained 10/10/2024: Tissue third digit to micro, demonstrates MSSA, Serratia, MRSE; distal phalanx bone third digit to micro, MSSA and Serratia; base of the proximal phalanx third digit to pathology, demonstrates chronic osteomyelitis with marrow edema. Currently on oral doxycycline and Levaquin for 7 days per ID management Medicine team following for medical management, they are greatly appreciated. Infectious disease following for antibiotic management Wound nurse following for assistance in dressing changes Patient is to continue to elevate the right foot at all times rest for postoperative edema control May apply ice behind the right knee for postoperative pain control He is to keep all dressings clean, dry, and intact to the right foot He may continue ambulation in a protected weightbearing status utilizing his surgical shoe to the right foot. This will aid in decreasing fall due to his Parkinson's. May continue working with therapy to increase strength and rehabilitation prior to his discharge home Discussed with the patient expected suture removal in 1 week Will continue to follow while in TCU weekly. Reach out to Dr. Davis for any questions or concerns. Jr. Harpreet Watson.P.M. [facility] [phone]
[2024-10-25 20:00] VITALS: PULSE 78; O2SAT 98
[2024-10-25 22:12] VITALS: BP 131/74; PULSE 67
[2024-10-26 09:12] VITALS: BP 120/65; PULSE 72; RESP 17; TEMP 36.3; O2SAT 94
[2024-10-26] MEDS: Insulin Glargine-YFGN 100 UNIT/ML Pen 30 UNIT SC ×2 (09:29→21:27)
[2024-10-26] MEDS: Polyethylene Glycol 3350 17 GM PACKET PO (09:29)
[2024-10-26] MEDS: Cholecalciferol (VIT D3) 25 MCG TABLET (1,000 UNITS) 50 MCG PO (09:30)
[2024-10-26 20:21] VITALS: PULSE 66; RESP 18
[2024-10-26] MEDS: Glycerin/Hypromellose/PEG400 15 ml Bottle 2 DRP EACH EYE (21:17)
[2024-10-26] MEDS: MELATONIN 10 MG TABLET PO (21:27)
--- NOTE | 2024-10-27 07:00 | NURSING ---
0605 Pt called to have urinal emptied. Awake, alert with no complaints. 0612 REFUSE COLLECTOR performed accucheck- blood sugar 59. Gave orange juice, oj doones with peanut butter and Pt requesting chocolate pudding with meds. 0631 blood sugar rechecked via fingerstick- 54. Called for lab draw back up. Pt slept without a blanket and his fingers were cold. Put warm blankets on Pt and allowed hands to warm up. Lab here to obtain blood draw and at 0655 Pt's blood sugar was 110. RN aware.
[2024-10-27 07:32] LABS: Glucose 109 mg/dL (70-99)
[2024-10-27 09:43] VITALS: BP 114/70; PULSE 76; RESP 17; TEMP 36.2; O2SAT 93
[2024-10-27] MEDS: Insulin Glargine-YFGN 100 UNIT/ML Pen 30 UNIT SC ×2 (09:49→22:06)
[2024-10-27] MEDS: Polyethylene Glycol 3350 17 GM PACKET PO ×2 (09:51→22:05)
[2024-10-27] MEDS: Cholecalciferol (VIT D3) 25 MCG TABLET (1,000 UNITS) 50 MCG PO (09:51)
[2024-10-27] MEDS: Glycerin/Hypromellose/PEG400 15 ml Bottle 2 DRP EACH EYE (22:03)
[2024-10-27] MEDS: MELATONIN 10 MG TABLET PO (22:19)
[2024-10-28 06:35] LABS: Hematocrit 46.3 % (40-54); Hemoglobin 15.2 g/dL (13.0-16.5); Immature Granulocytes Count 0.030 X10^3/uL (0.0-0.0); Mean Corp Hgb Conc 32.8 g/dL (32-36); Mean Corpuscular Volume 92.8 fL (80-94); Mean Platelet Vol. 10.4 fl (6.2-12.0); NRBC Flagged by Analyzer 0 % (0-5); Platelet Count 272 K/mm3 (150-450); RBC Distribution Width CV 12.4 % (11.6-14.6); RBC Distribution Width SD 42.0 fl (35.1-43.9); Red Blood Count 4.99 M/mm3 (4.6-6.2); White Blood Count 5.9 K/mm3 (4.4-11.0)
[2024-10-28 06:52] LABS: Anion Gap 11 (5-15); BUN 38 mg/dL (4-19); BUN/Creat Ratio 33.8 RATIO (10-20); Calcium,Total 9.4 mg/dL (7.6-11.0); Carbon Dioxide 23.7 mmol/L (21.0-32.0); Chloride 107 mmol/L (98-108); Estimated Creatinine Clearance 72.32 ml/min (50-250); Glucose 85 mg/dL (70-99); Potassium 4.2 mmol/L (3.3-5.1)
[2024-10-28 09:10] VITALS: BP 136/76; PULSE 69; RESP 17; TEMP 36.3; O2SAT 97
[2024-10-28] MEDS: Senna/Docusate Sodium 1 Tablet 2 TABLET PO (09:14)
[2024-10-28] MEDS: Cholecalciferol (VIT D3) 25 MCG TABLET (1,000 UNITS) 50 MCG PO (09:14)
[2024-10-28] MEDS: Insulin Glargine-YFGN 100 UNIT/ML Pen 25 UNIT SC ×2 (09:15→22:15)
[2024-10-28] MEDS: Glycerin/Hypromellose/PEG400 15 ml Bottle 2 DRP EACH EYE (09:15)
[2024-10-28] MEDS: Polyethylene Glycol 3350 17 GM PACKET PO (09:15)
[2024-10-28 17:53] VITALS: PULSE 78; RESP 17; O2SAT 93
[2024-10-28 21:56] VITALS: BP 123/79; PULSE 76
[2024-10-28] MEDS: MELATONIN 10 MG TABLET PO (22:09)
[2024-10-29 03:02] VITALS: PULSE 64; O2SAT 94
[2024-10-29 07:30] LABS: Hematocrit 41.5 % (40-54); Hemoglobin 14.0 g/dL (13.0-16.5); Immature Granulocytes Count 0.030 X10^3/uL (0.0-0.0); Mean Corp Hgb Conc 33.7 g/dL (32-36); Mean Corpuscular Volume 90.6 fL (80-94); Mean Platelet Vol. 10.5 fl (6.2-12.0); NRBC Flagged by Analyzer 0 % (0-5); Platelet Count 283 K/mm3 (150-450); RBC Distribution Width CV 12.4 % (11.6-14.6); RBC Distribution Width SD 40.6 fl (35.1-43.9); Red Blood Count 4.58 M/mm3 (4.6-6.2); White Blood Count 6.5 K/mm3 (4.4-11.0)
[2024-10-29] MEDS: Polyethylene Glycol 3350 17 GM PACKET PO ×2 (07:55→22:09)
[2024-10-29 07:57] VITALS: BP 139/78; PULSE 68; RESP 18; TEMP 36; O2SAT 96
[2024-10-29] MEDS: Insulin Glargine-YFGN 100 UNIT/ML Pen 25 UNIT SC ×2 (08:00→22:07)
[2024-10-29] MEDS: Cholecalciferol (VIT D3) 25 MCG TABLET (1,000 UNITS) 50 MCG PO (08:00)
[2024-10-29 08:06] LABS: Anion Gap 11 (5-15); BUN 39 mg/dL (4-19); BUN/Creat Ratio 36.5 RATIO (10-20); Calcium,Total 9.6 mg/dL (7.6-11.0); Carbon Dioxide 26.0 mmol/L (21.0-32.0); Chloride 104 mmol/L (98-108); Estimated Creatinine Clearance 76.37 ml/min (50-250); Glucose 118 mg/dL (70-99); Potassium 4.0 mmol/L (3.3-5.1)
[2024-10-29 15:00] VITALS: BMI 32.9
--- NOTE | 2024-10-29 15:13 | CASEMGMT ---
Social Work AERONAUTICS TEACHER phoned to schedule therapy training and briefly reviewed recommendations for DC. expressed being overwhelmed and concerned with recommendations, asking several questions. AERONAUTICS TEACHER referred to this worker for follow up. - SW phoned to follow up on conversation and offered assistance. works 3x/wk for 12 hrs and does not plan on quitting until another year. Pt requires 24/7 care. inquired if pt would improve enough in the future to no longer need 24/7 care. SW explained that is not a prediction this worker can make, but Parkinson's is a progressive disease and although pt can continue making improvements and gain further independence, he would need more ongoing assistance. expressed understanding. SW offered [employer] resources and [place]. stated they cannot afford [employer], but would be agreeable to review resources. SW to leave in pt's room for pt and to review and discuss options prior to therapy training 11/05 at 1000. agreed. SW inquired about Medicaid eligibility. does not believe they will qualify. SW agreed as is receiving an income with PT job. Offered to refer to [facility] Care Coordination program to determine if pt is eligible for additional services. agreed. SW will continue to follow for DC planning and support. _ SW completed referral via [facility] website. Nayeli Michelle MSW DECAL DECORATOR
[2024-10-29] MEDS: MELATONIN 10 MG TABLET PO (22:09)
[2024-10-30 07:33] LABS: Hematocrit 41.4 % (40-54); Hemoglobin 13.9 g/dL (13.0-16.5); Immature Granulocytes Count 0.020 X10^3/uL (0.0-0.0); Mean Corp Hgb Conc 33.6 g/dL (32-36); Mean Corpuscular Volume 90.6 fL (80-94); Mean Platelet Vol. 10.3 fl (6.2-12.0); NRBC Flagged by Analyzer 0 % (0-5); Platelet Count 272 K/mm3 (150-450); RBC Distribution Width CV 12.4 % (11.6-14.6); RBC Distribution Width SD 40.5 fl (35.1-43.9); Red Blood Count 4.57 M/mm3 (4.6-6.2); White Blood Count 6.1 K/mm3 (4.4-11.0)
[2024-10-30 07:50] LABS: Anion Gap 11 (5-15); BUN 34 mg/dL (4-19); BUN/Creat Ratio 36.0 RATIO (10-20); Calcium,Total 9.3 mg/dL (7.6-11.0); Carbon Dioxide 26.6 mmol/L (21.0-32.0); Chloride 105 mmol/L (98-108); Estimated Creatinine Clearance 85.35 ml/min (50-250); Glucose 117 mg/dL (70-99); Potassium 4.0 mmol/L (3.3-5.1)
[2024-10-30] MEDS: Cholecalciferol (VIT D3) 25 MCG TABLET (1,000 UNITS) 50 MCG PO (09:26)
[2024-10-30] MEDS: Insulin Glargine-YFGN 100 UNIT/ML Pen 25 UNIT SC ×2 (09:41→22:29)
[2024-10-30] MEDS: Polyethylene Glycol 3350 17 GM PACKET PO (09:43)
[2024-10-30 10:00] VITALS: PULSE 65; RESP 16; O2SAT 95
--- NOTE | 2024-10-30 10:15 | CASEMGMT ---
Social Work [employer] updated this worker that denied assessment but mailed PASSPORT information. Nayeli Michelle SUPERVISOR STAVE CUTTING TRANSONIC ENGINEER
[2024-10-30 13:04] VITALS: BP 128/72; PULSE 69; RESP 16; TEMP 36.6; O2SAT 96
--- NOTE | 2024-10-30 15:33 | WOUNDNOTE ---
wound photo: right foot
--- NOTE | 2024-10-30 15:34 | WOUNDNOTE ---
wound photo: right foot
--- NOTE | 2024-10-30 15:35 | WOUNDNOTE ---
wound photo: right Achilles area
[2024-10-30 22:24] VITALS: BP 143/87; PULSE 72; RESP 16; TEMP 36.9; O2SAT 96
[2024-10-31 05:24] VITALS: BP 141/83; PULSE 91; RESP 16; TEMP 36.7; O2SAT 93
[2024-10-31 07:55] LABS: Hematocrit 42.4 % (40-54); Hemoglobin 14.3 g/dL (13.0-16.5); Immature Granulocytes Count 0.040 X10^3/uL (0.0-0.0); Mean Corp Hgb Conc 33.7 g/dL (32-36); Mean Corpuscular Volume 90.0 fL (80-94); Mean Platelet Vol. 10.4 fl (6.2-12.0); NRBC Flagged by Analyzer 0 % (0-5); Platelet Count 243 K/mm3 (150-450); RBC Distribution Width CV 12.2 % (11.6-14.6); RBC Distribution Width SD 40.1 fl (35.1-43.9); Red Blood Count 4.71 M/mm3 (4.6-6.2); White Blood Count 5.8 K/mm3 (4.4-11.0)
[2024-10-31 08:43] LABS: Anion Gap 11 (5-15); BUN 31 mg/dL (4-19); BUN/Creat Ratio 29.2 RATIO (10-20); Calcium,Total 9.1 mg/dL (7.6-11.0); Carbon Dioxide 26.2 mmol/L (21.0-32.0); Chloride 106 mmol/L (98-108); Estimated Creatinine Clearance 78.04 ml/min (50-250); Glucose 136 mg/dL (70-99); Potassium 4.0 mmol/L (3.3-5.1)
[2024-10-31 10:50] VITALS: BP 129/79; PULSE 91; RESP 17; TEMP 36.7; O2SAT 94
[2024-10-31] MEDS: Polyethylene Glycol 3350 17 GM PACKET PO (10:58)
[2024-10-31] MEDS: Cholecalciferol (VIT D3) 25 MCG TABLET (1,000 UNITS) 50 MCG PO (10:58)
[2024-10-31] MEDS: Insulin Glargine-YFGN 100 UNIT/ML Pen 25 UNIT SC ×2 (12:17→21:29)
--- NOTE | 2024-10-31 13:32 | PCM.PROGNOTE ---
Subjective Subjective Patient seen this afternoon resting in Elda chair at bedside with feet elevated. He was sleeping when I entered the room. Upon waking him he stated that he was a little tired as therapy had worked him pretty hard today. States overall he does feel good however still has some swelling and tenderness of the ankle but it has been improving. Denies constitutional symptoms. Denies further complaints. Objective Data Objective Data Vital Signs: Vital Signs Temp Pulse Resp BP Pulse Ox O2 Del Method 98.1 F 91 17 129/79 H 94 Room Air 10/31/24 10:50 10/31/24 10:50 10/31/24 10:50 10/31/24 10:50 10/31/24 10:50 10/31/24 10:50 Oxygen Delivery Method Room Air Weight: 107.184 kg Body Mass Index (BMI) 32.9 Intake & Output: Intake and Output for Last 24 Hours 10/29/24 10/30/24 10/31/24 23:59 23:59 23:59 Intake Total 1260 / 1260 840 / 840 870 / 870 Output Total 650 / 650 Balance 610 / 610 840 / 840 870 / 870 Lab / Micro Data 10/31/24 07:31 10/31/24 07:31 Labs: Laboratory Results - last 24 hr 10/30/24 21:24: POC Glucose 140 H 10/30/24 22:28: POC Glucose 130 H 10/31/24 05:55: POC Glucose 181 H 10/31/24 07:31: WBC 5.8, RBC 4.71, Hgb 14.3, Hct 42.4, MCV 90.0, MCH 30.4, MCHC 33.7, RDW Std Deviation 40.1, RDW Coeff of Brant 12.2, Plt Count 243, MPV 10.4, Immature Gran % (Auto) 0.700, Neut % (Auto) 63.9, Lymph % (Auto) 17.4 L, [place] % (Auto) 9.3, Eos % (Auto) 8.4 H, Baso % (Auto) 0.3, Absolute Neuts (auto) 3.7, Absolute Lymphs (auto) 1.01, Nucleated RBC % 0, Sodium 142, Potassium 4.0, Chloride 106, Carbon Dioxide 26.2, Anion Gap 11, BUN 31 H, Creatinine 1.05, Estim Creat Clear Calc 78.04, Est GFR (MDRD) Non-Af 75, BUN/Creatinine Ratio 29.2 H, Glucose 136 H, Calcium 9.1 Physical Exam Const alert, oriented x3 and no apparent distress General Appearance: cooperative HEENT normocephalic Eyes Eyes Narrative: Wears glasses General Eye: normal appearance of both eyes Neck General: normal visual inspection Lymph Lymphatic: no lymphadenopathy noted and no lymphedema noted Resp normal respiratory effort Cardio regular rate and regular rhythm Extremity no calf tenderness Extremity Narrative: Bilateral lower extremity: Vascular: DP and PT pulses weakly palpable. CFT less than 5 seconds to the digits. Normal temperature gradient. Hair growth is diminished to digits and foot Neurologic: Gross sensation is intact. Protective sensation is diminished secondary to diabetic peripheral polyneuropathy Musculoskeletal: Third digit amputation of the right foot noted. Negative Jaramillo sign, negative Homans' sign. Pain to palpation about the lateral ankle, anterior ankle, and medial ankle right lower extremity. Dermatological: There is resolution of erythema about the ankle to just above the ankle mortise/distal tibia right lower extremity. This had receded and resolved from the previous line of demarcation consistent with resolving cellulitis. Third digit amputation of the right foot is appreciated with intact sutures overlying the amputation site. There is no surrounding erythema of the digit or foot, no purulent drainage from the digit site, no foul odor noted. No pain to palpation about the surgical site. Edema about the ankle is much improved. 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 Did have repeat radiographs obtained 10/19/2024 which were negative for acute osseous pathology. Findings were discussed with patient at bedside. Sutures intact third digit amputation stump. No signs of infection. Some edema about his ankle with tenderness, both of which are improving. Tenderness about his ankle improved following adjustment of nerve medications and continued elevation. Sutures removed today atraumatically Dressing changed 10/31/24 by wound nurse and myself consisting of Betadine over incision site, 4 x 4 gauze, Kerlix, ABD, and 4 inch Louis wrap rolled onto the foot. Additional padding of ABD was placed posterior to the Achilles where he has developed a small pressure ulceration of unknown cause. May remove dressing to the forefoot in 48 hours but continue to pad and protect the posterior Achilles. The pressure ulceration of the posterior Achilles is likely to be secondary to rubbing in his surgical shoe. On 10/05/2024 ESR noted to be elevated at 251 and ESR at 37 MRI was obtained 10/07/2024 demonstrating likely osteomyelitis of the remaining osseous structures of the middle and distal phalanx of the third digit of the right foot. I have reviewed imaging osteomyelitis is questionable however given concern over any recurrence and for definitive treatment patient is agreeable to amputation of the third digit. Wound Culture did demonstrate MSRA Surgical cultures obtained 10/10/2024: Tissue third digit to micro, demonstrates MSSA, Serratia, MRSE; distal phalanx bone third digit to micro, MSSA and Serratia; base of the proximal phalanx third digit to pathology, demonstrates chronic osteomyelitis with marrow edema. Finished all oral antibiotic per ID management. Medicine team following for medical management, they are greatly appreciated. Infectious disease following for antibiotic management Wound nurse following for assistance in dressing changes Patient is to continue to elevate the right foot at all times rest for postoperative edema control May apply ice behind the right knee for postoperative pain control He is to keep all dressings clean, dry, and intact to the right foot for next 48 hours after which may discontinue dressings to his forefoot He may continue ambulation in a protected weightbearing status utilizing his surgical shoe to the right foot. This will aid in decreasing fall due to his Parkinson's. May continue working with therapy to increase strength and rehabilitation prior to his discharge home Following improvement of the posterior Achilles pressure ulceration he may return to regular shoe gear Will continue to follow while in TCU weekly. Reach out to Dr. Davis for any questions or concerns. Jr. Crow WatsonPRashel. [facility] [phone]
--- NOTE | 2024-10-31 15:22 | CHAPLAIN ---
Type of Pastoral Visit ___ Initial Visit _x__ Follow-up Visit ___ On-call Visit ___ General Patient Visit ___ Spiritual Assessment ___ Family Conference ___ Bereavement ___ Rapid Response ___ Code Blue ___ Other (describe below) Pastoral Care Referral From ___ Patient ___ Family ___ Nurse ___ Physician _x__ Smash Hand ___ Artificial Foliage Arranger ___ Other (describe below) Sacrament/Intervention _x__ Active listening ___ Anointing ___ Jewish ___ Bereavement ___ Communion ___ Elham exploration ___ _x__ Life review _x__ Prayer ___ Reconciliation ___ Sacrament of Sick _x__ Supportive presence ___ Wedding ___ Other (describe below) Pastoral Comments SW recommended a follow up visit to this patient; pt and family will have to be making choices and changes concerning his return to home; pt is welcoming and reviews his latest news from the surgeon; pt is pleased that he had a good report; pt acknowledges that has been told that she better quit her job and stay home to care for patient; pt says that this will be hard on family to accept, especially his ; pt speaks of a vintage car that he owns and that is being restored to 'run' and 'enjoy' for his family; pt finds some pantera in these memories and thoughts of family working and enjoying life together; pt has elham and believes in the power of prayer; pt welcomes the time spent with him and the prayers
[2024-10-31 20:00] VITALS: PULSE 68; O2SAT 99
[2024-10-31 21:08] VITALS: BP 139/73; PULSE 63
[2024-10-31] MEDS: MELATONIN 10 MG TABLET PO (21:23)
[2024-11-01 08:07] LABS: Hematocrit 41.1 % (40-54); Hemoglobin 13.9 g/dL (13.0-16.5); Immature Granulocytes Count 0.040 X10^3/uL (0.0-0.0); Mean Corp Hgb Conc 33.8 g/dL (32-36); Mean Corpuscular Volume 91.5 fL (80-94); Mean Platelet Vol. 10.6 fl (6.2-12.0); NRBC Flagged by Analyzer 0 % (0-5); Platelet Count 244 K/mm3 (150-450); RBC Distribution Width CV 12.6 % (11.6-14.6); RBC Distribution Width SD 41.1 fl (35.1-43.9); Red Blood Count 4.49 M/mm3 (4.6-6.2); White Blood Count 6.5 K/mm3 (4.4-11.0)
[2024-11-01] MEDS: Cholecalciferol (VIT D3) 25 MCG TABLET (1,000 UNITS) 50 MCG PO (08:34)
[2024-11-01] MEDS: Polyethylene Glycol 3350 17 GM PACKET PO (08:34)
[2024-11-01] MEDS: Insulin Glargine-YFGN 100 UNIT/ML Pen 25 UNIT SC ×2 (08:35→22:26)
[2024-11-01 08:42] VITALS: BP 135/71; PULSE 76; RESP 16; TEMP 36.1; O2SAT 76
[2024-11-01 09:40] LABS: Anion Gap 12 (5-15); BUN 39 mg/dL (4-19); BUN/Creat Ratio 35.4 RATIO (10-20); Calcium,Total 9.3 mg/dL (7.6-11.0); Carbon Dioxide 23.1 mmol/L (21.0-32.0); Chloride 105 mmol/L (98-108); Estimated Creatinine Clearance 75.17 ml/min (50-250); Glucose 99 mg/dL (70-99); Potassium 3.9 mmol/L (3.3-5.1)
[2024-11-01 20:00] VITALS: PULSE 82; O2SAT 98
[2024-11-01 22:21] VITALS: BP 125/75; PULSE 63
[2024-11-01] MEDS: MELATONIN 10 MG TABLET PO (22:32)
--- NOTE | 2024-11-02 06:30 | NURSING ---
Patient AM accucheck was 67, juice and peanut butter given, recheck blood sugar was 81. Dr. Vega updated via written communication.
[2024-11-02 06:56] VITALS: PULSE 80; O2SAT 96
[2024-11-02 08:09] VITALS: BP 123/65; PULSE 73; RESP 18; TEMP 36.2; O2SAT 94
[2024-11-02] MEDS: Cholecalciferol (VIT D3) 25 MCG TABLET (1,000 UNITS) 50 MCG PO (08:17)
[2024-11-02] MEDS: Insulin Glargine-YFGN 100 UNIT/ML Pen 25 UNIT SC (08:18)
[2024-11-02] MEDS: Polyethylene Glycol 3350 17 GM PACKET PO (08:22)
--- NOTE | 2024-11-02 17:40 | NURSING ---
pt off unit PAULINE at this time
--- NOTE | 2024-11-02 17:58 | NURSING ---
RT foot dressing removed per dr Cordoba order and leave MAXIMILIANO. RT achilles area padded to protect from surgical shoe friction when ambulating.
[2024-11-02 22:38] VITALS: BP 145/79; PULSE 82; O2SAT 97
[2024-11-02] MEDS: Insulin Glargine-YFGN 100 UNIT/ML Pen 20 UNIT SC (22:43)
[2024-11-02] MEDS: MELATONIN 10 MG TABLET PO (22:46)
--- NOTE | 2024-11-03 00:07 | NURSING ---
Patient returned to floor from [place] around 2129
[2024-11-03 08:08] VITALS: BP 148/83; PULSE 67; RESP 17; TEMP 35.8; O2SAT 94
[2024-11-03] MEDS: Polyethylene Glycol 3350 17 GM PACKET PO (08:10)
[2024-11-03] MEDS: Insulin Glargine-YFGN 100 UNIT/ML Pen 20 UNIT SC ×2 (08:11→22:13)
[2024-11-03] MEDS: Cholecalciferol (VIT D3) 25 MCG TABLET (1,000 UNITS) 50 MCG PO (08:12)
[2024-11-03 11:04] VITALS: PULSE 59; RESP 17; O2SAT 94
[2024-11-03] MEDS: MELATONIN 10 MG TABLET PO (20:40)
[2024-11-04] MEDS: Polyethylene Glycol 3350 17 GM PACKET PO (06:03)
[2024-11-04 11:02] VITALS: BP 152/89; PULSE 91; RESP 16; TEMP 36.4; O2SAT 96
[2024-11-04] MEDS: Insulin Glargine-YFGN 100 UNIT/ML Pen 20 UNIT SC ×2 (11:09→22:47)
[2024-11-04] MEDS: Cholecalciferol (VIT D3) 25 MCG TABLET (1,000 UNITS) 50 MCG PO (11:09)
--- NOTE | 2024-11-04 15:50 | PN.TCU_ITS ---
Subjective Subjective Resident seen, examined for regulatory visit. He is feeling well, sitting in recliner watching television. He has no new problems, concerns, issues, complaints. Objective Data Objective Data Vital Signs: Vital Signs Temp Pulse Resp BP Pulse Ox O2 Del Method O2 Flow Rate 97.6 F L 91 16 152/89 H 96 Room Air 3 11/04/24 11:02 11/04/24 11:02 11/04/24 11:02 11/04/24 11:02 11/04/24 11:02 11/04/24 11:02 10/31/24 15:35 Oxygen Flow Rate (L/min) 3 Oxygen Delivery Method Room Air Weight: 107.184 kg Body Mass Index (BMI) 32.9 Intake & Output: Intake and Output for Last 24 Hours 11/02/24 11/03/24 11/04/24 23:59 23:59 23:59 Intake Total 601 / 601 720 / 720 820 / 820 Balance 601 / 601 720 / 720 820 / 820 Lab / Micro Data 11/01/24 07:30 11/01/24 07:30 Labs: Laboratory Results - last 24 hr 11/03/24 21:25: POC Glucose 194 H 11/04/24 01:47: POC Glucose 149 H 11/04/24 06:17: POC Glucose 149 H Physical Exam Const alert General Appearance: cooperative HEENT normocephalic Eyes PERRL and EOMs intact bilaterally Neck supple, no JVD and no carotid bruits Resp normal respiratory effort, normal air movement and clear to auscultation bilaterally Cardio regular rate and regular rhythm GI normal to inspection, nondistended, normoactive bowel sounds, non-tender and non-distended Extremity normal capillary refill Extremity Narrative: Right 3rd toe amputation, dressing. 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 Davis, complicated by acute kidney injury, admitted to TCU with debility, here for rehabilitation, strengthening, prior to discharge home with . * Debility - PT/OT. * Cognition - ST. * Pain - Tylenol 1000mg q6 prn pain (1-5), Oxycodone 5mg - 10mg q4 prn pain (6- 10). * Bowel - Miralax 17gm bid, senna/colace 2 tablets bid prn, Magnesium citrate 300mL daily prn. * Adult immunization - Administer pneumonia vaccine, covid vaccine, flu vaccine as appropriate. * DVT prophylaxis - Lovenox 40mg sc daily. * Parkinson Disease - Sinemet 25/250mg 2 tablets bidac. * Vitamin D deficiency - D3 50mcg daily. * Muscle spasm - Flexeril 10mg tid. 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 Davis/Dr. Schreiber. * Diabetes Mellitus II - Jardiance 25mg daily, Glargine 20 units bid. * Diabetic polyneuropathy - Gabapentin 200mg q8. * Hypertension - Propranolol 20mg bid. * Insomnia - Melatonin 10mg qhs. * GERD - Pantoprazole 20mg daily. * Hyperlipidemia - Pravastatin 20mg qhs. * BPH - Tamsulosin 0.4mg daily. * Dry eyes - Artificial tears 2 gtt ou bid prn.
--- NOTE | 2024-11-04 16:05 | WOUNDNOTE ---
wound photo: right foot
--- NOTE | 2024-11-04 16:05 | WOUNDNOTE ---
wound photo: right Achilles area
[2024-11-04 22:39] VITALS: BP 152/82; PULSE 63
[2024-11-04] MEDS: MELATONIN 10 MG TABLET PO (22:46)
[2024-11-05 10:57] VITALS: BP 141/82; PULSE 78; RESP 16; TEMP 36.3; O2SAT 94
[2024-11-05] MEDS: Insulin Glargine-YFGN 100 UNIT/ML Pen 20 UNIT SC ×2 (11:02→22:42)
[2024-11-05] MEDS: Cholecalciferol (VIT D3) 25 MCG TABLET (1,000 UNITS) 50 MCG PO (11:03)
[2024-11-05] MEDS: Polyethylene Glycol 3350 17 GM PACKET PO (12:04)
--- NOTE | 2024-11-05 13:21 | CASEMGMT ---
Addendum entered by Nayeli Michelle 11/05/24 15:33: SW spoke with pt at bedside. Provided HHC agency list. Issued [facility]. Pt agreeable to DC date and plans. Original Note: Social Work SW phoned to follow up after therapy training to discuss DC plans. confirmed she can care for pt at home and has additional family support. still works and requesting DC 11/12. IDT agreeable. Recommendation is skilled HHC for PT/OT/SN. agreed. SW to provide a list of skilled HHC agencies within geographical area, INN with insurance, that include quality and resource data via [employer] guide. Pt and to review choices and notify this worker of preferences. denied DME needs. to transport. Plan: DC home with 11/12, HHC PT/OT/SN Nayeli Michelle MANAGER LAND DIRECTOR PHARMACOLOGY
[2024-11-05 15:00] VITALS: BMI 32.2
--- NOTE | 2024-11-05 21:16 | PCM.DC.SUM ---
Providers Date of Admission: 10/11/24 Primary Care Physician: Dr. Rich Foy, DO Consultations 10/11/24 16:36 Consult: Podiatry Routine Consulting Provider: Rich Davis Reason for Consult: MRSA right foot osteomyelitis s/p right 3rd toe amputation. EMERGENT Consult: No Notified: Yes Date Notified: 10/11/24 Time Notified: 10:29 Method of Notification: Verbal Comments:: Dr. White notified over weekend 10/13/24 17:45 Consult: Infectious Disease Routine Consulting Provider: Ever Schreiber Reason for Consult: 3rd toe amputation d/t osteomyelitis, manage ATB's EMERGENT Consult: No Notified: Yes Date Notified: 10/13/24 Time Notified: 17:46 Method of Notification: Text 10/17/24 01:32 Consult: Onc/Wound/strategic marketing leader Routine Comment: Reason for Consult:: Right heel blister and right medial heel open area. Comments:: Amputation surgical site to right 3rd toe as well Reason For Visit: RIGHT LOWER EXTREMITY CELLULITIS & WEAKNESS Diagnosis Discharge Diagnosis (1) Debility: Status: Acute Code(s): R53.81 - Other malaise (2) Osteomyelitis of third toe of right foot: Status: Acute Code(s): M86.9 - Osteomyelitis, unspecified (3) Acute kidney injury: Status: Acute Code(s): N17.9 - Acute kidney failure, unspecified (4) Parkinson disease: Status: Acute Code(s): G20 - Parkinson's disease (5) Type 2 diabetes mellitus with hyperglycemia: Status: Acute Code(s): E11.65 - Type 2 diabetes mellitus with hyperglycemia (6) Essential (primary) hypertension: Status: Acute Code(s): I10 - Essential (primary) hypertension (7) BPH (benign prostatic hyperplasia): Status: Acute Code(s): N40.0 - Benign prostatic hyperplasia without lower urinary tract symptoms (8) Hyperlipidemia: Status: Acute Code(s): E78.5 - Hyperlipidemia, unspecified (9) Neuropathic pain: Status: Acute Code(s): M79.2 - Neuralgia and neuritis, unspecified Plan 74 year old male with below past medical history hospitalized for 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 Davis, complicated by acute kidney injury, admitted to TCU with debility, here for rehabilitation, strengthening, prior to discharge home with . Debility - PT/OT. Cognition - ST. Pain - Tylenol 1000mg q6 prn pain (1-5), Oxycodone 5mg - 10mg q4 prn pain (6-10). Bowel - Miralax 17gm bid, senna/colace 2 tablets bid prn, Magnesium citrate 300mL daily prn. Adult immunization - Administer pneumonia vaccine, covid vaccine, flu vaccine as appropriate. DVT prophylaxis - Lovenox 40mg sc daily. Parkinson Disease - Sinemet 25/250mg 2 tablets bidac. Vitamin D deficiency - D3 50mcg daily. Muscle spasm - Flexeril 10mg tid. MRSA right foot osteomyelitis s/p right 3rd toe amputation - Appreciate Dr. Davis/Dr. Schreiber. Diabetes Mellitus II - Jardiance 25mg daily, Glargine 20 units bid. Diabetic polyneuropathy - Gabapentin 200mg q8. Hypertension - Propranolol 20mg bid. Insomnia - Melatonin 10mg qhs. GERD - Pantoprazole 20mg daily. Hyperlipidemia - Pravastatin 20mg qhs. BPH - Tamsulosin 0.4mg daily. Dry eyes - Artificial tears 2 gtt ou bid prn. Medications at Discharge Home Medications carbidopa 25 mg-levodopa 250 mg tablet 2 tab PO BID parkinsons 03/10/20 tamsulosin 0.4 mg capsule 0.4 mg PO Q24H retention 03/10/20 cholecalciferol (vitamin D3) 50 mcg (2,000 unit) tablet 50 mcg PO DAILY supplement 11/09/22 empagliflozin 25 mg tablet (Jardiance) 25 mg PO DAILY diabetes 11/09/22 pravastatin 20 mg tablet 20 mg PO DAILY cholesterol 11/09/22 cyclobenzaprine 10 mg tablet 10 mg PO TID pain 10/05/24 omeprazole 20 mg capsule,delayed release 20 mg PO DAILY heartburn 10/05/24 propranolol 20 mg tablet 20 mg PO BID blood pressure 10/05/24 insulin glargine-yfgn 100 unit/mL (3 mL) subcutaneous pen 20 unit (0.2 mL) subcut BID Blood sugar #0 mL 10/11/24 acetaminophen 500 mg tablet 1,000 mg (2 x 500 mg) PO Q6H PRN PRN Pain Score 1-5 #0 tabs 11/05/24 gabapentin 100 mg capsule 200 mg (2 x 100 mg) PO Q8 30 days #180 caps 11/05/24 melatonin 10 mg disintegrating tablet 10 mg PO QHS PRN PRN Insomnia #0 tabs 11/05/24 Hospital Course Operations - (See below.) Procedures None Summary of Care Provided Minutes Spent on Discharge: 35 Hospital Course: 74 year old male with below past medical history hospitalized for 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 Davis, complicated by acute kidney injury, admitted to TCU with debility, here for rehabilitation, strengthening, prior to discharge home with . Discharge home with 11/12/2024, [facility] PT/OT/SN. Physical Exam Const alert General Appearance: cooperative HEENT normocephalic Eyes PERRL and EOMs intact bilaterally Neck supple, no JVD and no carotid bruits Resp normal respiratory effort, normal air movement and clear to auscultation bilaterally Cardio regular rate and regular rhythm GI normal to inspection, nondistended, normoactive bowel sounds, non-tender and non-distended Extremity normal capillary refill Extremity Narrative: Right 3rd toe amputation, dressing. General Extremity: Negative for edema Skin no rashes or lesions noted General Skin Exam: no breakdown Psych affect normal Appearance: appropriate Weight / BMI Weight Weight: 104.808 kg Body Mass Index (BMI) 32.2 ABG / Lab / Microbiology Data 11/01/24 07:30 11/01/24 07:30 Laboratory: Laboratory Results - last 24 hr 11/04/24 21:49: POC Glucose 182 H 11/05/24 03:04: POC Glucose 122 H 11/05/24 05:51: POC Glucose 88 11/05/24 16:11: POC Glucose 190 H D/C Instructions Discharge Activity: Return to Normal Activity, May Shower and Use Walker Weight Bearing Status: Weight bearing as tolerated (Right lower extremity.) Call your doctor if you observe: Fever of 101 or Higher, Inability to urinate, Inability to have a bowel movement, Shortness of breath, Dizziness, Fainting spells, Swelling in the ankles, Chest pain and Uncontrolled pain DC O2, CPAP, BIPAP Needs Home O2 Discharge instructions: No Additional Instructions: Discharge home with 11/12/2024, [facility] PT/OT/SN. Meaningful Use Info Meaningful Use Meaningful Use Diagnoses (Choose all that apply): None applicable Discharge Plan Admission Admit Date/Time: 10/11/24 15:07 Primary Reason for Your Visit: Debility. Attending Provider: Ion Vega Chi Primary Care Provider: Rich Foy Consulting Providers: Ever Schreiber; Rich Davis Instructions Additional Instructions / Restrictions: Discharge home with 11/12/2024, [facility] PT/OT/SN. Discharge Orders/Prescriptions Prescriptions: New acetaminophen 500 mg Tablet 1,000 mg PO Q6H PRN PRN (Reason: Pain Score 1-5) Qty: 0 0RF gabapentin 100 mg Capsule 200 mg PO Q8 30 Days Qty: 180 0RF melatonin 10 mg Tablet,Disintegrating 10 mg PO QHS PRN PRN (Reason: Insomnia) Qty: 0 0RF Continued carbidopa-levodopa 25-250 mg tablet 2 tab PO BID tamsulosin 0.4 mg capsule 0.4 mg PO Q24H cholecalciferol (vitamin D3) 50 mcg (2,000 unit) tablet 50 mcg PO DAILY Patient Comments: TAKE 1 TABLET BY MOUTH EVERY DAY pravastatin 20 mg tablet 20 mg PO DAILY Patient Comments: TAKE 1 TABLET BY MOUTH EVERY OTHER DAY Jardiance 25 mg tablet 25 mg PO DAILY cyclobenzaprine 10 mg tablet 10 mg PO TID omeprazole 20 mg capsule,delayed release(DR/EC) 20 mg PO DAILY propranolol 20 mg tablet 20 mg PO BID insulin glargine-yfgn 100 unit/mL (3 mL) Insulin Pen 20 unit subcut BID Qty: 0 0RF Discontinued glimepiride 4 mg tablet 4 mg PO DAILY Patient Comments: TAKE 1 TABLET BY MOUTH EVERY DAY lisinopril-hydrochlorothiazide 20-25 mg tablet 1 tab PO DAILY gabapentin 100 mg capsule 100 mg PO Q8H Patient Comments: TAKE 1 CAPSULE BY MOUTH TWICE A DAY acetaminophen 500 mg Tablet 1,000 mg PO Q8 PRN (Reason: pain) Qty: 0 0RF enoxaparin 40 mg/0.4 mL Syringe 40 mg subcut DAILY Qty: 0 0RF insulin lispro [Humalog KwikPen Insulin] 100 unit/mL Insulin Pen See Protocol subcut ACHS Qty: 0 0RF Protocol: 4. Sliding Scale Insulin High-Med Dosing Condition: 150-199 mg/dl = 2 units Condition: 200-259 mg/dl = 4 units Condition: 260-324 mg/dl = 6 units Condition: 325-374 mg/dl = 8 units Condition: 375-409 mg/dl = 10 units Condition: 410-449 mg/dl = 11 units Condition: Greater than 449 call physician Protocol Text: Suggested for: - Patients on Total Daily Insulin Dose of 56-80 units - Patient who are known to be insulin resistant or septic HIGH MEDIUM DOSING ALGORITHM melatonin 3 mg Tablet 3 mg PO QHS PRN PRN (Reason: Insomnia) Qty: 0 0RF oxycodone 5 mg Tablet 5 mg PO Q4H PRN PRN (Reason: Pain Score 1-10) 3 Days Qty: 12 0RF doxycycline monohydrate 100 mg capsule 100 mg PO BID Qty: 14 0RF Referrals / Follow Up: Rich Foy DO [Primary Care Provider, Family Practice] - Within 1 Week Referral Note: Transition Care Management appointment. Disposition Disposition (needs filled in before D/C Order can be placed): Home Health Service
[2024-11-05 22:34] VITALS: BP 157/75; PULSE 57; O2SAT 96
[2024-11-05] MEDS: MELATONIN 10 MG TABLET PO (22:39)
[2024-11-06 06:38] VITALS: PULSE 68; O2SAT 97
[2024-11-06 07:40] VITALS: BP 158/85; PULSE 75; RESP 16; TEMP 36.2; O2SAT 96
[2024-11-06] MEDS: Polyethylene Glycol 3350 17 GM PACKET PO ×2 (07:44→23:10)
[2024-11-06] MEDS: Cholecalciferol (VIT D3) 25 MCG TABLET (1,000 UNITS) 50 MCG PO (07:44)
[2024-11-06] MEDS: Insulin Glargine-YFGN 100 UNIT/ML Pen 20 UNIT SC ×2 (07:45→23:11)
--- NOTE | 2024-11-06 13:43 | WOUNDNOTE ---
wound photo: right Achilles area
--- NOTE | 2024-11-06 14:16 | NURSING ---
pt sat up to so nurse could administer his 2p meds. had pt sip some water to wet mouth. pt began coughing and choking on his water. pt stated well that has never happened before pt able to take meds one at time with water following w/out incident.
[2024-11-06 23:02] VITALS: BP 149/76; PULSE 62
--- NOTE | 2024-11-07 06:44 | NURSING ---
personal diabetic lotion applied to BLE, pt tolerated well
[2024-11-07 07:16] VITALS: BP 127/84; PULSE 70; RESP 18; TEMP 36.1; O2SAT 95
[2024-11-07] MEDS: Insulin Glargine-YFGN 100 UNIT/ML Pen 20 UNIT SC ×2 (07:20→21:58)
[2024-11-07] MEDS: Cholecalciferol (VIT D3) 25 MCG TABLET (1,000 UNITS) 50 MCG PO (07:21)
--- NOTE | 2024-11-07 10:29 | CASEMGMT ---
Addendum entered by Nayeli Michelle 11/07/24 11:24: [facility] can accept with SOC 11/13. SW phoned to update. Original Note: Social Work SW followed up with on HHC agency preference. prefers [facility]. SW phoned referral for PT/OT/SN Nayeli Michelle TILE HELPER WOOD MILL SUPERVISOR
[2024-11-07 10:46] VITALS: PULSE 70; RESP 17; O2SAT 95
--- NOTE | 2024-11-07 14:22 | NURSING ---
PT C/O LOW BACK PAIN TODAY RANGING 7-8/10 PAIN. MEDICATED WITH OXYIR X2 TODAY W/SOME EFFECT. PT MOVEMENTS MUCH SLOWER TODAY TOO. PT STATING IT WAS FROM THERAPY YESTERDAY, HE DID A LOT OF WALKING. KPAD ORDERED AND PLACED UNDER PT IN BED. CALL LIGHT IN REACH. PT ASLEEP BEFORE THIS NURSE LEFT ROOM
--- NOTE | 2024-11-07 18:04 | NURSING ---
spoke with pt's regarding low back pain and pt requesting pain medication. oxyir given and pt was less mobile today. stated pt is sensitive to strong pain meds, he needs his deep tissue massage. I will schedule it next week dr helton notified of pain med sensitivity, new order to DC.
[2024-11-07 22:00] VITALS: BP 139/75; PULSE 103; RESP 18
[2024-11-08 05:00] VITALS: PULSE 75; RESP 18; O2SAT 94
[2024-11-08 09:03] VITALS: BP 117/67; PULSE 79; RESP 18; TEMP 36.6; O2SAT 95
[2024-11-08] MEDS: Cholecalciferol (VIT D3) 25 MCG TABLET (1,000 UNITS) 50 MCG PO (09:05)
[2024-11-08] MEDS: Insulin Glargine-YFGN 100 UNIT/ML Pen 20 UNIT SC ×2 (09:07→21:56)
--- NOTE | 2024-11-08 14:20 | RAD_ITS ---
PROCEDURE: L/S SPINE MIN 4 VIEWS 11/08/2024 REASON FOR EXAM: LOW BACK PAIN TECHNIQUE: Procedure Code: RADSPLS Modality: DX Procedure: L/S SPINE MIN 4 VIEWS COMPARISON: None. RAD/L/S Spine Min 4 Views IMPRESSION: Prominent arterial calcification is seen, including the abdominal aorta iliac a rteries. Thoracolumbar levoscoliosis is seen, centered about the L2 level. Degenerative changes are seen throughout the mid to upper lumbar spine lower th oracic spine. Disc narrowing is greatest at the T12-L1, and especially L1-L2 and L2-L3 levels . Vacuum disc phenomenon is seen at L2-L3. Vertebral body osteophytosis is greatest at L1-L2, anteriorly. No evidence of spondylolysis or significant degree of spondylolisthesis. Also, lumbar posterior facet hypertrophy is evident. Reading Location: [id number]
[2024-11-08] MEDS: Lidocaine 5% Patch 1 PATCH TOPICAL (14:51)
[2024-11-08] MEDS: Arthritis Pain Compound 60 CLICK TUBE TOPICAL ×2 (14:51→21:55)
--- NOTE | 2024-11-08 15:05 | NURSING ---
Pt has been having an increase in back pain. New orders for lidocaine patch to lower back, arthritis cream to lower back and XRAY of the lower back.
[2024-11-08] MEDS: MELATONIN 10 MG TABLET PO (21:55)
[2024-11-08 22:05] VITALS: BP 151/82; PULSE 75
[2024-11-09 09:15] VITALS: BP 130/71; PULSE 69; RESP 17; TEMP 35.9; O2SAT 94
[2024-11-09] MEDS: Arthritis Pain Compound 60 CLICK TUBE TOPICAL ×2 (09:16→22:20)
[2024-11-09] MEDS: Insulin Glargine-YFGN 100 UNIT/ML Pen 20 UNIT SC ×2 (09:17→22:26)
[2024-11-09] MEDS: Lidocaine 5% Patch 1 PATCH TOPICAL (09:18)
[2024-11-09] MEDS: Cholecalciferol (VIT D3) 25 MCG TABLET (1,000 UNITS) 50 MCG PO (09:19)
[2024-11-09 20:00] VITALS: PULSE 74; O2SAT 94
[2024-11-09 22:18] VITALS: BP 144/81; PULSE 63
[2024-11-09] MEDS: MELATONIN 10 MG TABLET PO (22:37)
[2024-11-10 06:52] VITALS: PULSE 64; O2SAT 94
[2024-11-10 09:10] VITALS: BP 135/75; PULSE 66; RESP 17; TEMP 36.3; O2SAT 97
[2024-11-10] MEDS: Arthritis Pain Compound 60 CLICK TUBE TOPICAL ×2 (09:12→21:50)
[2024-11-10] MEDS: Insulin Glargine-YFGN 100 UNIT/ML Pen 20 UNIT SC ×2 (09:13→22:01)
[2024-11-10] MEDS: Lidocaine 5% Patch 1 PATCH TOPICAL (09:14)
[2024-11-10] MEDS: Cholecalciferol (VIT D3) 25 MCG TABLET (1,000 UNITS) 50 MCG PO (09:15)
[2024-11-10 21:46] VITALS: BP 145/81; PULSE 81
[2024-11-10] MEDS: MELATONIN 10 MG TABLET PO (21:59)
[2024-11-11 09:43] VITALS: BP 148/79; PULSE 73; RESP 18; TEMP 36.4; O2SAT 96
[2024-11-11] MEDS: Arthritis Pain Compound 60 CLICK TUBE TOPICAL ×2 (09:45→21:48)
[2024-11-11] MEDS: Lidocaine 5% Patch 1 PATCH TOPICAL (09:45)
[2024-11-11] MEDS: Cholecalciferol (VIT D3) 25 MCG TABLET (1,000 UNITS) 50 MCG PO (09:45)
[2024-11-11] MEDS: Insulin Glargine-YFGN 100 UNIT/ML Pen 20 UNIT SC ×2 (09:50→21:49)
[2024-11-11] MEDS: MELATONIN 10 MG TABLET PO (21:50)
[2024-11-11 21:58] VITALS: PULSE 85; RESP 17; O2SAT 95
[2024-11-11 22:08] VITALS: BP 152/87; PULSE 84; O2SAT 94
[2024-11-12 05:32] VITALS: PULSE 60; RESP 16; O2SAT 96
[2024-11-12 07:40] VITALS: BP 169/88; PULSE 64; RESP 18; TEMP 35.9; O2SAT 98
[2024-11-12] MEDS: Arthritis Pain Compound 60 CLICK TUBE TOPICAL (07:42)
[2024-11-12] MEDS: Cholecalciferol (VIT D3) 25 MCG TABLET (1,000 UNITS) 50 MCG PO (07:42)
[2024-11-12] MEDS: Lidocaine 5% Patch 1 PATCH TOPICAL (07:42)
[2024-11-12] MEDS: Insulin Glargine-YFGN 100 UNIT/ML Pen 20 UNIT SC (07:43)
== END 2024-11-12 11:45 | disposition home health service (06) | DRG 560 ==
PROVIDERS: Admitting Provider Family Medicine Geriatric Medicine; PCP Student in an Organized Health Care Education/Training Program; Referring Provider Family Medicine Geriatric Medicine; Visit Provider Family Medicine Geriatric Medicine
DX: Z47.81 Encounter for orthopedic aftercare following surgical amputation (principal); M86.8X7 Other osteomyelitis, ankle and foot; L03.115 Cellulitis of right lower limb; E11.42 Type 2 diabetes mellitus with diabetic polyneuropathy; E11.628 Type 2 diabetes mellitus with other skin complications; B95.62 Methicillin resistant Staphylococcus aureus infection as the cause of diseases classified elsewhere; G20.A1 Parkinson's disease without dyskinesia, without mention of fluctuations; I10 Essential (primary) hypertension; E11.65 Type 2 diabetes mellitus with hyperglycemia; E11.69 Type 2 diabetes mellitus with other specified complication; E55.9 Vitamin D deficiency, unspecified; K21.9 Gastro-esophageal reflux disease without esophagitis; Z79.4 Long term (current) use of insulin; E78.5 Hyperlipidemia, unspecified; Z89.421 Acquired absence of other right toe(s); Z79.899 Other long term (current) drug therapy; Z79.84 Long term (current) use of oral hypoglycemic drugs; N40.0 Benign prostatic hyperplasia without lower urinary tract symptoms; G47.00 Insomnia, unspecified
CPT/HCPCS: 36415; 72110; 73610; 73630; 80048; 82947; 82962; 85025; 92507; 92523; 97110; 97116; 97162; 97165; 97530; 97535; A4216

== ENCOUNTER → 2024-11-27 | Outpatient (CLI) | payer MEDICARE, OTHER, SELFPAY ==
[2024-11-27 17:59] LABS: Hematocrit 49.0 % (40-54); Hemoglobin 15.8 g/dL (13.0-16.5); Mean Corp Hgb Conc 32.2 g/dL (32-36); Mean Corpuscular Volume 93.7 fL (80-94); Mean Platelet Vol. 11.8 fl (6.2-12.0); Platelet Count 230 K/mm3 (150-450); RBC Distribution Width CV 13.2 % (11.6-14.6); RBC Distribution Width SD 45.4 fl (35.1-43.9); Red Blood Count 5.23 M/mm3 (4.6-6.2); White Blood Count 5.7 K/mm3 (4.4-11.0)
[2024-11-27 18:41] LABS: Creatinine, Urine (random) 65.40 mg/dL (39.00-259.00); Microalbumin,Random Urine 62.2 mg/L (<20 mg/L)
[2024-11-27 18:44] LABS: AST(SGOT) 22 U/L (<=37); Alanine Aminotransfer ALT/SGPT 13 U/L (<=46); Albumin, Serum 3.9 g/dL (3.4-4.8); Alkaline Phosphatase 41 U/L (40-129); Anion Gap 11 (5-15); BUN 35 mg/dL (4-19); BUN/Creat Ratio 22.6 RATIO (10-20); Calcium,Total 9.4 mg/dL (7.6-11.0); Carbon Dioxide 28.2 mmol/L (21.0-32.0); Chloride 103 mmol/L (98-108); Cholesterol 134 mg/dL (<=200); Globulin 3.0 g/dL (2.2-4.2); Glucose 309 mg/dL (70-99); Low Density Lipoprotein Calc. 74 mg/dL; PSA,Total - Annual Screen 5.05 ng/mL (0.02-4.00); Potassium 4.4 mmol/L (3.3-5.1); Triglycerides 129 mg/dL; Very Low Density Lipoprotein 26 mg/dL (5-40); Vitamin D,25 Hydroxy 42.9 ng/mL (30-100); cholesterol:hdl ratio screen 3.94
== END | disposition home or self-care (01) ==
PROVIDERS: PCP Student in an Organized Health Care Education/Training Program; Visit Provider Student in an Organized Health Care Education/Training Program
DX: E11.21 Type 2 diabetes mellitus with diabetic nephropathy (principal); Z12.5 Encounter for screening for malignant neoplasm of prostate; E55.9 Vitamin D deficiency, unspecified
CPT/HCPCS: 80053; 80061; 82043; 82306; 82570; 83036; 84153; 84443; 85027; G0103

== ENCOUNTER → 2024-12-19 | Outpatient (CLI) | payer MEDICARE, OTHER, SELFPAY ==
--- OUTSIDE RECORDS SUMMARY | 2024-12-19 17:53 | XMS RPT_ITS | CCD ---
Author Organization [facility] Care Team Providers Care Medical Staff Specialist Name Role Phone ELANA HICKMAN DO Primary Care Physician [phone] Timmy PT, Marcela Unavailable Unavailable VICK VICK, ELANA Primary Care Unavailable AYAAN ABDULLAHI, DR NAGEL Attending Unavailabl e ELANA HICKMAN DO Attending Unavailable ELANA HICKMAN DO Primary Care Unavailable MARY RASHID-MARK, MANUEL Sesay Attending Unavai lable ELANA HICKMAN DO Primary Care Unavailable MARIA TERESA ABDULLAHI, HUGH Crane Attending Unavail able VICK VICK, ELANA Primary Care Unavailable Vick VICK, Dr. Villanueva Primary Care Provider [phone] Eddie DPM, Dr. Bardales Attending Provider Eddie UMAÑA, Dr. Bardales Referring Provider Dr. Neville Swan DO Attending Provider Dr. Neville Swan DO Emergency Provider Dr. Elana Hickman DO Primary Care Provider [phone] Eddie DPM, Dr. Bardales Attending Provider Dr. Wang Nuñez MD Emergency Provider Dr. Stephen Deal DO Admit Provider Dr. Stephen Deal DO Other Provider [phone] Dr. Ryne Steward DO Attending Provider Adelaida ABDULLAHI, Dr. Silvia Cuellar Other Provider [phone] Ryan UMAÑA, Dr. Villanueva Other Provider Candie ABDULLAHI, Dr. Curtis Other Provider Adelaida ABDULLAHI, Dr. Silvia Cuellar Attending Provider Bin VICK, Dr. Michele Other Provider Vick VICK, Dr. Villanueva Primary Care Physician Eddie UMAÑA, Dr. Bardales Attending Physician [phone] Joaquin ABDULLAHI, Dr. Piña Emergency Department Phys ician Say VICK, Dr. Mitchell Admitting Physician Say VICK, Dr. Mitchell Nurse Practitioner Bin VICK, Dr. Michele Attending Physician Adelaida ABDULLAHI, Dr. Silvia Cuellar Nurse Practitioner Ryan UMAÑA, Dr. Villanueva Nurse Practitioner Candie ABDULLAHI, Dr. Curtis Nurse Practitioner Adelaida ABDULLAHI, Dr. Silvia Cuellar Attending Physician Bin VICK, Dr. Michele Nurse Practitioner Edi ABDULLAHI, Dr. Vito Wagoner Attending Physician Bin VICK, Dr. Michele Referring Provider Ayden ABDULLAHI, Dr. Jovel Attending Physician Skylar ABDULLAHI, Dr. Hines Referring Provider Gary ABDULLAHI, Dr. Ion Jensen Admitting Physician Gary ABDULLAHI, Dr. Ion Jesnen Attending Physician [phone] Gary ABDULLAHI, Dr. Ion Jensen Referring Provider Ryne Steward Attending Unavailable Elana Hickman Primary Care Unavailable Stephen Deal Consulting Unavailable Stephen Deal Admitting Unavailable Silvia Son Consulting Unavailable Elana Davis Consulting Unavailable Ryne Steward Consulting Unavailable Silvia Son Attending Unavailable Stephen Deal Attending Unavailable Elana Hickman Primary Care Unavailable Esau Hensley Attending Unavailable Donny Cheng Referring Unavailable Ever Schreiber Consulting Unavailable Halko, Elana Primary Care Unavailable Jeffy Morgan Attending Unavailable Ahmet Larson Referring Unavailable Jeffy Morgan Attending Unavailable Halko, Elana Primary Care Unavailable Halko, Elana Attending Unavailable Halko, Elana Primary Care Unavailable Halko, Elana Primary Care Unavailable Ever Schreiber Consulting Unavailable Gary, Ion Chi Referring Unavailable GaryIon Chi Attending Unavailable Gary, Ion Chi Admitting Unavailable Ryan, Elana Consulting Unavailable Ryne Steward Attending Unavailable Stephen Deal Admitting Unavailable Stephen Deal Consulting Unavailable Halko, Elana Primary Care Unavailable Silvia Son Consulting Unavailable Ryan, Elana Consulting Unavailable Ever Schreiber Consulting Unavailable Halko, Elana Primary Care Unavailable Jeffy Morgan Attending Unavailable Ahmet Larson Referring Unavailable Neville Swan Attending Unavailable Halko, Elana Primary Care Unavailable Halko, Elana Primary Care Unavailable Neville Swan Attending Unavailable Halko, Elana Primary Care Unavailable Jeffy Morgan Referring Unavailable Jeffy Morgan Attending Unavailable CHAVEZ DPMauro, DR LEO Attending Unavailabl e HALKO DO, ELANA Primary Care Unavailable HALKO DO, ELANA Attending Unavailable HALKO DO, ELANA Primary Care Unavailable HALKO DO, ELANA Primary Care Unavailable HALKO DO, ELANA Attending Unavailable Allergies Allergy Classification Reported Allergen(s) Allergy Type Date of Onset Reaction(s) Facility (7 sources) HMG-CoA reductase inhibitor; Translations: [statins] Propensity to adverse reactions to drug Muscle pain (finding) [facility] Work Phone: Medications Current Medications Medication Drug Class(es) Dates Sig (Normalized) Sig (Original) acetaminophen 500 mg oral tablet (6 sources) Start: 11-05-2024 take 2 tablets by mouth every six hours as needed for pain Start: 10-11-2024 End: 11-05-2024 take 2 tablets by mouth every eight hours as needed for pain Acetaminophen 500 mg Tablet Discontinued 1000 mg PO EVERY 8 HOURS as needed for pain 0 0 October 11, 2024 12:00am November 05, 2024 9:19pm Start: 11-22-2022 acetaminophen 500 mg oral tablet Dose : 1,000 mg = 2 tab(s), Oral, q6hr, 0 Refill(s) Start Date: 11/22/22 Status: Ordered carbidopa 25 mg / levodopa 250 mg oral tablet (11 sources) Aromatic Amino Acid Decarboxylation Inhibitor, Aromatic Amino Acid Start: 03-10-2020 End: 11-19-2023 take 1 tablet by mouth twice daily, then take 2 tablets by mouth twice daily carbidopa-levodopa 25 mg-250 mg oral tablet Dose = 2 tab(s), Oral, BID, TAKE 2 TABLETS BY MOUTH TWICE A DAY, # 360 tab(s), 1 Refill(s), Pharmacy: [facility], 177.5, cm, 05/23/23 11:39:00 EDT, Height, kg, 05/23/23 11:39:00 EDT, Dosing Weight Start Date: 05/23/23 Stop Date: 11/19/23 Status: Ordered Start: 03-10-2020 Carbidopa-Levo dopa Active TABLET PO March 10, 2020 1:00am cholecalciferol 0.05 mg oral tablet (7 sources) Vitamin D Start: 05-23-2023 End: 11-19-2023 cholecalciferol 50 mcg (2000 intl units) oral tablet Dose : 50 mcg = 1 tab(s), Oral, Daily, # 90 tab(s), 1 Refill(s), Pharmacy: [facility], 177.5, cm, 05/23/23 11:39:00 EDT, Height, kg, 05/23/23 11:39:00 EDT, Dosing Weight Start Date: 05/23/23 Stop Date: 11/19/23 Status: Ordered Start: 11-09-2022 take 1 tablet by angelika th once daily Start: 06-14-2022 End: 05-21-2023 cholecalciferol 50 mcg (2000 intl units) oral tablet Dose : 50 mcg = 1 tab(s), Oral, Daily, # 90 tab(s), 1 Refill(s), Pharmacy: [facility]/pharmacy #[id number], 180.3, cm, 11/22/22 11:34:00 EDT, Height, kg, 11/22/22 11:34:00 EDT, Dosing Weight Start Date: 11/22/22 Stop Date: 05/21/23 Status: Ordered cyclobenzaprine hydrochlorid e 10 mg oral tablet (13 sources) Muscle Relaxant Start: 10-05-2024 take 1 tablet by mouth three times daily Start: 05-23-2023 End: 11-19-2023 cyclobenzaprine 10 mg oral t ablet Dose : 10 mg = 1 tab(s), Oral, TID, # 90 tab(s), 5 Refill(s), Pharmacy: [facility], 177.5, cm, 05/23/23 11:39:00 EDT, Height, kg, 05/23/23 11:39:00 EDT, Dosing Weight Start Date: 05/23/23 Stop Date: 11/19/23 Status: Ordered Start: 01-26-2022 End: 05-21-2023 cyclobenzaprine 10 mg oral t ablet Dose : 10 mg = 1 tab(s), Oral, TID, # 90 tab(s), 5 Refill(s), Pharmacy: [facility]/pharmacy #[id number], 180.3, cm, 11/22/22 11:34:00 EDT, Height, kg, 11/22/22 11:34:00 EDT, Dosing Weight Start Date: 11/22/22 Stop Date: 05/21/23 Status: Ordered Start: 04-23-2021 End: 01-16-2022 cyclobenzaprine 10 mg oral t ablet Dose : 10 mg = 1 tab(s), Oral, TID, # 90 tab(s), 5 Refill(s), Pharmacy: [facility]/pharmacy #[id number], 180, cm, 07/20/21 8:58:00 EDT, [...] 3 Refill(s), Pharmacy: [facility]/pharmacy #[id number], 181, cm, 11/02/21 15:23:00 EDT, Height, 106.3, kg, 12/15/20 15:23:00 EDT, Dosing Weight Start Date: 12/18/20 Status: Ordered Start: 12-18-2020 DME MISCellane ous See Instructions, 7 EA = 7 DEXCOM continuous glucose senosrs, to replace every 2 weeks, for 90 day supply; Dx E11.65, Z79.4, G20, # 7 EA, 3 Refill(s), [id number], cm, 12/15/20 15:23:00 EDT, Height, 106.3, kg, 12/15/20 15:23:00 E... Start Date: 12/18/20 Status: Ordered Start: 12-18-2020 DME MISCellane ous See Instructions, 1 EA = DEXCOM continuous glucose log washer; Dx E11.65, Z79.4, G20, # 1 EA, 0 Refill(s), [id number], Type 2 diabetes mellitus with hyperglycemia Parkinsons disease, 181, cm, 12/15/20 15:23:00 EDT, Height, 106.3, kg, 12/15/20 15:23:00 EDT, Dosing Weight Start Date: 12/18/20 Status: Ordered Start: 12-18-2020 DME MISCellane ous See Instructions, 1 EA = DEXCOM continuous glucose log washer; Dx E11.65, Z79.4, G20, # 1 EA, 0 Refill(s), [id number], Type 2 diabetes mellitus with hyperglycemia Parkinsons disease, 181, cm, 12/15/20 15:23:00 EDT, Height, 106.3, kg,... Start Date: 12/18/20 Status: Ordered Start: 12-18-2020 DME MISCellane ous See Instructions, 1 EA = DEXCOM continuous glucose transmitor; Dx E11.65, Z79.4, G20, # 1 EA, 0 Refill(s), Pharmacy: [facility]/pharmacy #[id number], 181, cm, 12/15/20 15:23:00 EDT, Height, 106.3, kg, 12/15/20 15:23:00 EDT, Dosing Weight Start Date: 12/18/20 Status: Ordered empagliflozin 25 mg oral tablet (14 sources) Sodium-Glucose Cotransporter 2 Inhibitor Start: 02-01-2022 End: 11-19-2023 take 1 tablet by mouth once daily Start: 02-18-2021 End: 01-16-2022 empagliflozin 25 mg oral tab let Dose : 25 mg = 1 tab(s), Oral, qAM, # 90 tab(s), 1 Refill(s), Pharmacy: [facility]/pharmacy #[id number], 180, cm, 07/20/21 8:58:00 EDT, Height, kg, 07/20/21 8:58:00 EDT, Dosing Weight Start Date: 07/20/21 Stop Date: 01/16/22 Status: Ordered Start: 03-10-2020 End: 10-05-2024 take 1 tablet by mouth once daily Empagliflozin (Jardiance) 10 mg tablet Discontinued 10 mg PO DAILY March 10, 2020 1:00am October 05, 2024 2:57pm gabapentin 100 mg oral capsule (8 sources) Anti-epileptic Agent Start: 11-05-2024 take 2 capsules by mouth every eight hours Start: 11-09-2022 End: 11-05-2024 take 1 capsule by mouth every eight hours Gabapentin 100 mg capsule Discontinued 100 mg PO Q8H November 09, 2022 12:00am November 05, 2024 9:19pm pain/neurapathy hydroCHLOROthiazide 25 mg / lisinopril 20 mg oral tablet (11 sources) Thiazide Diuretic, Angiotensin Converting Enzyme Inhibitor Start: 03-10-2020 End: 11-05-2024 take 1 tablet by mouth once daily hydrochlorothiazide-lisinopril 25 mg-20 mg oral tablet Dose = 1 tab(s), Oral, Daily, # 90 tab(s), 1 Refill(s), Pharmacy: [facility], 177.5, cm, 05/23/23 11:39:00 EDT, Height, kg, 05/23/23 11:39:00 EDT, Dosing Weight Start Date: 05/23/23 Stop Date: 11/19/23 Status: Ordered Start: 03-10-2020 Lisinopril-Hyd rochlorothiazide Active TABLET PO March 10, 2020 1:00am Insulin Glargine-Yfgn (1 source) Start: 10-11-2024 Insulin Glargine-Yfgn 100 unit/mL (3 mL) Insulin Pen (1 source) Start: 10-11-2024 Insulin Glargine-Yfgn 100 unit/mL (3 mL) Insulin Pen Active 20 U SC TWICE A DAY 0 October 11, 2024 12:00am melatonin 10 mg sublingual tablet (3 sources) Start: 11-05-2024 take 1 tablet by mouth at bedtime as needed Start: 10-11-2024 End: 11-05-2024 take 1 tablet by mouth at bedtime as needed Melatonin 3 mg Tablet Discontinued 3 mg PO AT BEDTIME NEEDED as needed for Insomnia 0 October 11, 2024 12:00am November 05, 2024 9:20pm omeprazole 20 mg delayed release oral capsule (9 sources) Proton Pump Inhibitor Start: 10-05-2024 take 1 capsule by mouth once daily Start: 05-23-2023 End: 11-19-2023 omeprazole 20 mg oral delaye d release capsule Dose : 20 mg = 1 cap(s), Oral, qDay, # 90 cap(s), 1 Refill(s), Pharmacy: [facility], 177.5, cm, 05/23/23 11:39:00 EDT, Height, kg, 05/23/23 11:39:00 EDT, Dosing Weight Start Date: 05/23/23 Stop Date: 11/19/23 Status: Ordered Start: 06-14-2022 End: 05-21-2023 omeprazole 20 mg oral delaye d release capsule Dose : 20 mg = 1 cap(s), Oral, qDay, # 90 cap(s), 1 Refill(s), Pharmacy: [facility]/pharmacy #[id number], 180.3, cm, 11/22/22 11:34:00 EDT, Height, kg, 11/22/22 11:34:00 EDT, Dosing Weight Start Date: 11/22/22 Stop Date: 05/21/23 Status: Ordered Start: 02-01-2022 End: 07-31-2022 PriLOSEC OTC 20 mg oral thor yed release tablet Dose : 20 mg = 1 tab(s), Oral, qDayAC, # 90 tab(s), 1 Refill(s), [id number] 180.3, cm, 02/01/22 11:27:00 EST, Height, kg, 02/01/22 11:27:00 EST, Dosing Weight Start Date: 02/01/22 Stop Date: 07/31/22 Status: Ordered Start: 02-18-2021 End: 01-16-2022 PriLOSEC OTC 20 mg oral thor yed release tablet Dose : 20 mg = 1 tab(s), Oral, qDayAC, # 90 tab(s), 1 Refill(s), [id number], 180, cm, 07/20/21 8:58:00 EDT, Height, kg, 07/20/21 8:58:00 EDT, Dosing Weight Start Date: 07/20/21 Stop Date: 01/16/22 Status: Ordered pravastatin sodium 20 mg oral tablet (9 sources) HMG-CoA Reductase Inhibitor Start: 11-09-2022 take 1 tablet by mouth once daily Start: 06-14-2022 pravastatin 20 mg oral tablet Dose : 20 mg = 1 tab(s), Oral, Every other day, # 90 tab(s), 0 Refill(s), [id number], 180.3, cm, 06/14/22 11:34:00 EDT, Height, kg, 06/14/22 11:34:00 EDT, Dosing Weight Start Date: 06/14/22 Status: Ordered Start: 02-01-2022 pravastatin 20 mg oral tablet Dose : 20 mg = 1 tab(s), Oral, Every other day, # 90 tab(s), 0 Refill(s), Pharmacy: [facility]/pharmacy #[id number], 180.3, cm, 02/01/22 11:27:00 EST, Height, kg, 02/01/22 11:27:00 EST, Dosing Weight Start Date: 02/01/22 Status: Ordered Start: 07-20-2021 pravastatin 20 mg oral tablet Dose : 20 mg = 1 tab(s), Oral, Every other day, # 90 tab(s), 0 Refill(s), Pharmacy: [facility]/pharmacy #[id number], 180, cm, 07/20/21 8:58:00 EDT, Height, kg, 07/20/21 8:58:00 EDT, Dosing Weight Start Date: 07/20/21 Status: Ordered propranolol hydrochloride 20 mg oral tablet (20 sources) beta-Adrenergic Terry Start: 10-05-2024 take 1 tablet by mouth twice daily Start: 05-23-2023 End: 11-19-2023 propranolol 20 mg oral table t Dose : 20 mg = 1 tab(s), Oral, BID, # 180 tab(s), 1 Refill(s), Pharmacy: [facility], 177.5, cm, 05/23/23 11:39:00 EDT, Height, kg, 05/23/23 11:39:00 EDT, Dosing Weight Start Date: 05/23/23 Stop Date: 11/19/23 Status: Ordered Start: 02-01-2022 End: 05-21-2023 propranolol 20 mg oral table t Dose : 20 mg = 1 tab(s), Oral, BID, # 180 tab(s), 1 Refill(s), Pharmacy: [facility]/pharmacy #[id number], 180.3, cm, 11/22/22 11:34:00 EDT, Height, kg, 11/22/22 11:34:00 EDT, Dosing Weight Start Date: 11/22/22 Stop Date: 05/21/23 Status: Ordered Start: 02-18-2021 End: 01-16-2022 propranolol 20 mg oral table t Dose : 20 mg = 1 tab(s), Oral, BID, # 180 tab(s), 1 Refill(s), Pharmacy: [facility]/pharmacy #[id number], 180, cm, 07/20/21 8:58:00 EDT, Height, kg, 07/20/21 8:58:00 EDT, Dosing Weight Start Date: 07/20/21 Stop Date: 01/16/22 Status: Ordered Start: 05-07-2020 End: 10-05-2024 Propranolol 60 mg tablet Discontinued 20 mg PO TWICE A DAY May 07, 2020 2:39pm October 05, 2024 2:56pm Start: 03-10-2020 End: 05-07-2020 Propranolol 60 mg [...] 11:35am tamsulosin hydrochloride 0.4 mg oral capsule (11 sources) alpha-Adrenergic Terry Start: 03-10-2020 End: 12-23-2023 tamsulosin 0.4 mg oral capsule Dose : 0.4 mg = 1 cap(s), Oral, qDay, # 90 cap(s), 1 Refill(s), Pharmacy: [facility], 177.5, cm, 05/23/23 11:39:00 EDT, Height, kg, 05/23/23 11:39:00 EDT, Dosing Weight Start Date: 06/26/23 Stop Date: 12/23/23 Status: Ordered traMADol hydrochloride 50 mg oral [...] tab(s), 0 Refill(s), 08/19/21 9:36:00 EDT, Pharmacy: [facility]/pharmacy #[id number], Chronic back pain Lumbar radiculopathy, 180, cm, 07/20/21 8:58:00 EDT, Height, 1... Start Date: 07/20/21 Stop Date: 08/19/21 Status: Ordered Completed/Discontinued Medications Medication Drug Class(es) Dates Sig (Normalized) Sig (Original) acetaminophen 325 mg / HYDROcodone bitartrate 5 mg oral tablet (12 sources) Opioid Agonist Start: 05-07-2020 End: 11-09-2022 [...] / oxyCODONE hydrochloride 5 mg oral tablet (4 sources) Opioid Agonist Start: 10-28-2022 End: 11-09-2022 [...] HOURS NEEDED 12 3 October 28, 2022 amitriptyline hydrochloride 25 mg oral tablet (4 sources) Tricyclic Antidepressant Start: 11-09-2022 End: 10-05-2024 take 1 tablet by mouth at bedtime Amitriptyline 25 mg tablet Discontinued 25 mg PO AT BEDTIME November 09, 2022 12:00am October 05, 2024 2:57pm Start: 06-14-2022 amitriptyline 25 mg oral tablet Dose : 50 mg = 2 tab(s), Oral, qHS, start 1 tab at night x 3 nights, then increase to 2 tabs at night, # 60 tab(s), 0 Refill(s), Pharmacy: [facility]/pharmacy #[id number], 180.3, cm, 06/14/22 11:34:00 EDT, Height Start Date: 06/14/22 Status: Ordered carbidopa 25 mg oral tablet (4 sources) Aromatic Amino Acid Decarboxylation Inhibitor Start: 03-06-2018 End: 03-10-2020 take 1 tablet by mouth every eight hours Carbidopa 25 mg tablet Discontinued 25 mg PO Q8H March 06, 2018 1:00am March 10, 2020 11:34am cephalexin 500 mg oral capsule (3 sources) Cephalosporin Antibacterial Start: 01-30-2024 End: 06-17-2024 take 1 capsule by mouth every six hours Cephalexin 500 mg capsule Discontinued 500 mg PO EVERY 6 HOURS 40 0 January 30, 2024 1:00am June 17, 2024 9:52pm diazePAM 2 mg oral tablet (4 sources) Benzodiazepine Start: 05-19-2020 End: 11-09-2022 take 1 tablet by mouth twice daily for anxiety Diazepam (Valium) 2 mg tablet Discontinued 2 mg PO TWICE A DAY as needed for anxiety 3 0 May 19, 2020 12:00am November 09, 2022 12:07pm Claustrophobia Take 1 tablet 1 hour before MRI. Take another tablet 30 minutes before MRI. diphenhydrAMINE hydrochloride 25 mg oral tablet (4 sources) Histamine-1 Receptor Antagonist Start: 05-07-2020 End: 06-17-2024 take 1 tablet by mouth at bedtime Diphenhydramine Hcl 25 mg tablet Discontinued 25 mg PO AT BEDTIME May 07, 2020 12:00am June 17, 2024 9:52pm doxycycline monohydrate 100 mg oral capsule (7 sources) Tetracycline-class Drug Start: 10-05-2024 End: 11-05-2024 take 1 capsule by mouth twice daily Doxycycline Monohydrate 100 mg capsule Discontinued 100 mg PO TWICE A DAY 14 0 October 11, 2024 12:13pm November 05, 2024 9:19pm infection Start: 03-16-2024 End: 10-05-2024 take 1 capsule by mouth twice daily Doxycycline Hyclate 100 mg capsule Discontinued 100 mg PO TWICE A DAY 28 14 0 March 16, 2024 1:00am October 05, 2024 2:57pm 0.5 ml dulaglutide 1.5 mg/ml auto-injector (4 sources) GLP-1 Receptor Agonist Start: 03-06-2018 End: 03-10-2020 Dulaglutide (Trulicity) 0.75 mg/0.5 mL pen injector Discontinued 0.75 mg SC EVERY WEEK March 06, 2018 1:00am March 10, 2020 11:34am 0.4 ml enoxaparin sodium 100 mg/ml prefilled syringe (2 sources) Low Molecular Weight Heparin Start: 10-11-2024 End: 11-05-2024 Enoxaparin 40 mg/0.4 mL Syringe Discontinued 40 mg SC DAILY 0 0 October 11, 2024 12:00am November 05, 2024 9:19pm blood thinner glimepiride 4 mg oral tablet (15 sources) Sulfonylurea Start: 03-10-2020 End: 11-05-2024 take 1 tablet by mouth once daily Glimepiride 4 mg tablet Discontinued 4 mg PO DAILY March 10, 2020 1:00am November 05, 2024 9:19pm diabetes Start: 03-06-2018 End: 11-09-2022 take 1 tablet by mouth once daily in the morning Glimepiride 2 mg tablet Discontinued 2 mg PO EVERY MORNING March 06, 2018 1:00am November 09, 2022 12:06pm insulin isophane, human 70 unt/ml / insulin, regular, human 30 unt/ml injectable suspension (11 sources) Insulin Start: 10-05-2024 End: 10-11-2024 Insulin Nph And Regular Jazzy n (Humulin 70/30 U-100 Insulin) 100 unit/mL (70-30) suspension Discontinued 30 U SC .daily AM October 05, 2024 12:00am October 11, 2024 12:11pm diabetes Start: 10-05-2024 End: 10-11-2024 Insulin Nph And Regular Jazzy n (Novolin 70-30 Flexpen U-100) 100 unit/mL (70-30) insulin pen Discontinued 20 U SC .daily HS October 05, 2024 12:00am October 11, 2024 12:11pm diabetes Start: 09-22-2023 End: 12-21-2023 inject 32 [IU] by subcutaneous injection twice daily HumuLIN 70/30 10 mL vial 32 unit(s), Subcutaneous, BID, in lieu of pcp, # 30 mL, 0 Refill(s), Pharmacy: [facility], 177.5, cm, 05/23/23 11:39:00 EDT, Height, kg, 05/23/23 11:39:00 EDT, Dosing Weight Start Date: 09/22/23 Stop Date: 12/21/23 Status: Ordered Start: 02-01-2022 End: 12-11-2022 inject 32 [IU] by subcutaneous injection twice daily HumuLIN 70/30 10 mL vial 32 unit(s), Subcutaneous, BID, # 30 mL, 1 Refill(s), Pharmacy: [facility]/pharmacy #[id number], 180.3, cm, 06/14/22 11:34:00 EDT, [...] BID, # 30 mL, 1 Refill(s), Pharmacy: [facility]/pharmacy #[id number], 180.8, cm, 02/18/21 8:30:00 EST, Height, kg, 02/18/21 8:30:00 EST, Dosing Weight Start Date: 02/18/21 Stop Date: 08/17/21 Status: Ordered 3 ml insulin lispro 100 unt/ml pen injector (2 sources) Insulin Analog Start: 10-11-2024 End: 11-05-2024 Insulin Lispro (Humalog Kwikpen Insulin) 100 unit/mL Insulin Pen Discontinued 0 U SC BEFORE MEALS AND AT BEDTIME Protocol: Suggested for:- Patients on Total Daily Insulin Dose of 56-80 units- Patient who are known to be insulin resistant or septicHIGH MEDIUM DOSING ALGORITHM Condition: 150-199 mg/dl = 2 units Condition: 200-259 mg/dl = 4 units Condition: 260-324 mg/dl = 6 units Condition: 325-374 mg/dl = 8 units Condition: 375-409 mg/dl = 10 units Condition: 410-449 mg/dl = 11 units Condition: Greater than 449 call physician 0 0 October 11, 2024 12:00am November 05, 2024 9:19pm Blood sugar Please contact the information source for Protocol details. Start: 10-11-2024 Insulin Lispro (Humalog Kwikpen Insulin) 100 unit/mL Insulin Pen Active 0 U SC BEFORE MEALS AND AT BEDTIME 0 0 October 11, 2024 12:00am Please contact the information source for Protocol details. levothyroxine sodium 0.025 mg oral capsule (4 sources) l-Thyroxine Start: 03-06-2018 End: 03-10-2020 take 1 capsule by mouth once daily Levothyroxine 25 mcg capsule Discontinued 25 ug PO DAILY March 06, 2018 1:00am March 10, 2020 11:35am lisinopril 5 mg oral tablet (4 sources) Angiotensin Converting Enzyme Inhibitor Start: 03-06-2018 End: 03-10-2020 take 1 tablet by mouth once daily Lisinopril 5 mg tablet Discontinued 5 mg PO DAILY March 06, 2018 1:00am March 10, 2020 11:35am oxyCODONE hydrochloride 5 mg oral tablet (2 sources) Opioid Agonist Start: 10-11-2024 End: 11-05-2024 take 1 tablet by mouth every four hours as needed for pain Oxycodone 5 mg Tablet Discontinued 5 mg PO EVERY 4 HOURS NEEDED as needed for Pain Score 1-10 12 3 0 October 11, 2024 November 05, 2024 9:20pm Cellulitis of right lower extremity Osteomyelitis of right foot Cellulitis of right lower limb Subacute osteomyelitis, right ankle and foot rosuvastatin calcium 10 mg oral tablet (8 sources) HMG-CoA Reductase Inhibitor Start: 03-10-2020 End: [...] mg / trimethoprim 160 mg oral tablet (3 sources) Dihydrofolate Reductase Inhibitor Antibacterial, Sulfonamide Antimicrobial Start: 01-30-2024 End: 06-17-2024 Sulfamethoxazole-Trimethopri m 800-160 mg tablet Discontinued 1 {tbl} PO TWICE A DAY 20 0 January 30, 2024 1:00am June 17, 2024 9:51pm zolpidem tartrate 5 mg oral tablet (4 sources) gamma-Aminobutyr ic Acid-ergic Agonist Start: 04-21-2020 End: 05-01-2020 take 1 tablet by mouth at bedtime as needed Zolpidem (Ambien) 5 mg tablet Discontinued 5 mg PO AT BEDTIME as needed for insomnia 10 10 0 April 21, 2020 1:00am April 30, 2020 12:00am May 01, 2020 12:03am take as indicated Problems Active Problems Problem Classification Problem Date Documented Da te Episodic/Chronic Acquired foot deformities (3 sources) Hammer toe; Translations: [Other hammer toe(s) (acquired), right foot] 03-06-2024 Chronic Acute and unspecified renal failure (2 sources) Acute renal failure syndrome; Translations: [Acute kidney failure, unspecified] 10-11-2024 Episodic Chronic kidney disease (13 sources) Chronic kidney disease stage 3 11-12-2018 Chronic Chronic ulcer of skin (8 sources) Non-pressure chronic ulcer of other part of right foot with fat layer exposed; Translations: [Non-pressure chronic ulcer of other part of right foot with fat layer exposed] Onset: 5 03-06-2024 Chronic Diabetes mellitus with complications (20 sources) Neuropathy due to diabetes mellitus; Translations: [Hyperglycemia due to type 2 diabetes mellitus] Onset: 5 11-12-2018 Chronic Diabetes mellitus without complication (6 sources) Type 2 diabetes mellitus 11-12-2018 Chronic Disorders of lipid metabolism (10 sources) Hyperlipidemia; Translations: [Hyperlipidemia, unspecified] 11-12-2018 Chronic E Codes: Fall (3 sources) Fall; Translations: [Unspecified fall, initial encounter] 06-26-2024 Episodic Esophageal disorders (8 sources) Gastroesophageal reflux disease 11-12-2018 Chronic Essential hypertension (10 sources) Hypertensive disorder; Translations: [Essential hypertension] 11-12-2018 Chronic Fracture of upper limb (8 sources) Fracture of acromial process of scapula; Translations: [Displaced fracture of acromial process, unspecified shoulder, initial encounter for closed fracture] 03-10-2020 Episodic Genitourinary symptoms and ill-defined conditions (8 sources) Microalbuminuria 12-25-2018 Episodic Hyperplasia of prostate (10 sources) Benign prostatic hyperplasia; Translations: [Benign prostatic hyperplasia without lower urinary tract symptoms] 06-12-2019 Chronic Hypertension with complications and secondary hypertension (5 sources) Hypertensive renal disease 06-14-2022 Chronic Infective arthritis and osteomyelitis (except that caused by tuberculosis or sexually transmitted disease) (8 sources) Osteomyelitis of right foot; Translations: [Osteomyelitis, unspecified] Onset: 5 03-06-2024 Chronic Inflammatory conditions of male genital organs (8 sources) Epididymitis 02-18-2021 Episodic Malaise and fatigue (6 sources) Asthenia; Translations: [Other malaise] Onset: 5 10-05-2024 Episodic Nutritional deficiencies (1 source) Vitamin D deficiency, unspecified; Translations: [Vitamin D deficiency, unspecified] Onset: 5 Chronic Open wounds of extremities (1 source) Unspecified open wound of right lesser toe(s) without damage to nail, initial encounter; Translations: [Unspecified open wound of right lesser toe(s) without damage to nail, initial encounter] Onset: 5 Episodic Other aftercare (1 source) Encounter for orthopedic aftercare following surgical amputation; Translations: [Encounter for orthopedic aftercare following surgical amputation] Onset: 5 Episodic Other and unspecified benign neoplasm (8 sources) Lipoma of intrathoracic organs 05-23-2020 Episodic Other bone disease and musculoskeletal deformities (2 sources) Absence of toe; Translations: [Acquired absence of other right toe(s)] 10-18-2024 Episodic Other connective tissue disease (8 sources) [...] Onset: 3 Episodic Other connective tissue disease (2 sources) Pain in toe; Translations: [Pain in right toe(s)] 03-06-2024 Episodic Other connective tissue disease (1 source) Pain of toe of right foot; Translations: [Pain in right toe(s)] 10-19-2024 Episodic Other connective tissue disease (2 sources) Neuropathic pain; Translations: [Neuralgia and neuritis, unspecified] 10-11-2024 Episodic Other connective tissue disease (1 source) Other specified soft tissue disorders; Translations: [Other specified soft tissue disorders] Onset: 5 Episodic Other gastrointestinal disorders (1 source) Dysphagia; Translations: [Dysphagia, unspecified] Onset: 3 Episodic Other injuries and conditions due to external causes (7 sources) At risk for falls 07-20-2021 Episodic Other male genital disorders (7 sources) Disorder of male genital organ 07-20-2021 Episodic Other nervous system disorders (4 sources) Chronic pain; Translations: [Other chronic pain] 10-28-2022 Chronic Other non-traumatic joint disorders (4 sources) Pain in right shoulder; Translations: [Acute [...] more but less than 30 11-22-2022 Episodic Paralysis (7 sources) Monoparesis - leg 07-20-2021 Chronic Parkinson`s disease (10 sources) Parkinson's disease; Translations: [Parkinson's disease] 11-12-2018 Chronic Peripheral and visceral atherosclerosis (7 sources) Atherosclerosis of aorta; Translations: [Peripheral vascular disease] 06-14-2022 Chronic Residual codes; unclassified (8 sources) Chronic back pain 11-12-2018 Episodic Residual codes; unclassified (7 sources) Screening due 07-20-2021 Episodic Residual codes; unclassified (4 sources) Immunization due 11-22-2022 Episodic Residual codes; unclassified (3 sources) Confusional state; Translations: [Disorientation, unspecified] 11-17-2022 Episodic Residual codes; unclassified (2 sources) Other specified health status; Translations: [Failure of outpatient treatment] 10-05-2024 Episodic Skin and subcutaneous tissue infections (18 sources) Cellulitis; Translations: [Cellulitis of right foot] Onset: 09-01-2020 Episodic Spondylosis; intervertebral disc disorders; other back problems (5 sources) Degeneration of lumbar intervertebral disc 06-14-2022 Chronic Spondylosis; intervertebral disc disorders; other back problems (15 sources) Sciatica; Translations: [Lumbar radiculopathy] 12-15-2020 Episodic Sprains and strains (6 sources) Strain of neck muscle; Translations: [Strain of muscle, fascia and tendon at neck level, initial encounter] 10-28-2022 Episodic Superficial injury; contusion (12 sources) Contusion of elbow; Translations: [Contusion of unspecified elbow, initial encounter] 06-26-2024 Episodic Unclassified (8 sources) Fracture of greater tuberosity of humerus 03-17-2020 Unclassified (8 sources) Medication refused 12-15-2020 Unclassified (20 sources) Patient encounter status 09-14-2020 Unclassified (3 sources) Statin not tolerated (context-dependent category) 01-06-2022 Unclassified (7 sources) Colon cancer screening declined 07-20-2021 Past or Other Problems Problem Classification Problem Date Documented Da te Episodic/Chronic Other connective tissue disease (1 source) Pain in right foot; Translations: [Pain in right foot] Onset: 03-05-2024 Episodic Other lower respiratory disease (1 source) Pleurodynia; Translations: [Pleurodynia] Onset: 06-24-2024 Episodic Other screening for suspected conditions (not mental disorders or infectious disease) (2 sources) Viral screening status; Translations: [Elevated prostate specific antigen [PSA]] Onset: 05-21-2024 09-14-2020 Episodic Residual codes; unclassified (1 source) Other amnesia; Translations: [Other amnesia] Onset: 05-21-2024 Episodic Results Test Name Value Interpretation Reference Range Facility CBC-Complete Blood Cnt No Di ffon 11-27-2024 Erythrocyte distribution width (RBC) [Ratio] 13.2 % Normal 11.6-14.6 [facility] Comment on above: Performed By: #### L 502.0250, L501.9910, L506.1001, L100.0500, L501.9520, L500.4050, L501.9985, L500.4100 ####[facility] [address] [facility]. [place], [place], [phone] Hematocrit (Bld) [Volume fraction] 49.0 % Normal 40-54 [facility] Comment on above: Performed By: #### L 502.0250, L501.9910, L506.1001, L100.0500, L501.9520, L500.4050, L501.9985, L500.4100 ####[facility] [address] [facility] [place], [address] Hemoglobin (Bld) [Mass/Vol] 15.8 g/dL Normal 13.0-16.5 [facility] Comment on above: Performed By: #### L 502.0250, L501.9910, L506.1001, L100.0500, L501.9520, L500.4050, L501.9985, L500.4100 ####[facility] [address] [place], [address] MCH (RBC) [Entitic mass] 30.2 pg Normal 27.0-32.0 [facility] Comment on above: Performed By: #### L 502.0250, L501.9910, L506.1001, L100.0500, L501.9520, L500.4050, L501.9985, L500.4100 ####[facility] [address] [place], [address] MCHC (RBC) [Mass/Vol] 32.2 g/dL Normal 32-36 [facility] Comment on above: Performed By: #### L 502.0250, L501.9910, L506.1001, L100.0500, L501.9520, L500.4050, L501.9985, L500.4100 ####[facility] [address] [place], [address] MCV (RBC) [Entitic vol] 93.7 fL Normal 80-94 [facility] Comment on above: Performed By: #### L 502.0250, L501.9910, L506.1001, L100.0500, L501.9520, L500.4050, L501.9985, L500.4100 ####[facility] [address] [place], [address] Platelet mean volume (Bld) [Entitic vol] 11.8 fL Normal 6.2-12.0 [facility] Comment on above: Performed By: #### L 502.0250, L501.9910, L506.1001, L100.0500, L501.9520, L500.4050, L501.9985, L500.4100 ####[facility] [address] [place], [address] Platelets (Bld) [#/Vol] 230 10*3/uL Normal 150-450 [facility] Comment on above: Performed By: #### L 502.0250, L501.9910, L506.1001, L100.0500, L501.9520, L500.4050, L501.9985, L500.4100 ####[facility] [address] [place], [address] RBC (Bld) [#/Vol] 5.23 10*6/uL Normal 4.6-6.2 [facility] Comment on above: Performed By: #### L 502.0250, L501.9910, L506.1001, L100.0500, L501.9520, L500.4050, L501.9985, L500.4100 ####[facility] [address] [place], [address] RDW SD 45.4 fl High 35.1-43.9 [facility] Comment on above: Performed By: #### L 502.0250, L501.9910, L506.1001, L100.0500, L501.9520, L500.4050, L501.9985, L500.4100 ####[facility] [address] [place], [address] WBC (Bld) [#/Vol] 5.7 10*3/uL Normal 4.4-11.0 [facility] Comment on above: Performed By: #### L 502.0250, L501.9910, L506.1001, L100.0500, L501.9520, L500.4050, L501.9985, L500.4100 ####[facility] [address] [place], [address] Comprehensive Metabolic Prof ilon 11-27-2024 Albumin [Mass/Vol] 3.9 g/dL Normal 3.4-4.8 [facility] Comment on above: Performed By: #### L 502.0250, L501.9910, L506.1001, L100.0500, L501.9520, L500.4050, L501.9985, L500.4100 ####[facility] [address] [place], [address] Albumin/Globulin [Mass ratio] 1.3 {ratio} Normal 0.9-2.4 [facility] Comment on above: Performed By: #### L 502.0250, L501.9910, L506.1001, L100.0500, L501.9520, L500.4050, L501.9985, L500.4100 ####[facility] [address] [place], [address] ALK PHOS 41 U/L Normal 40-129 [facility] Comment on above: Performed By: #### L 502.0250, L501.9910, L506.1001, L100.0500, L501.9520, L500.4050, L501.9985, L500.4100 ####[facility] [address] [place], [address] ALT [Catalytic activity/Vol] 13 U/L Normal <=46 [facility] Comment on above: Performed By: #### L 502.0250, L501.9910, L506.1001, L100.0500, L501.9520, L500.4050, L501.9985, L500.4100 ####[facility] [address] [place], [address] AST [Catalytic activity/Vol] 22 U/L Normal <=37 [facility] Comment on above: Performed By: #### L 502.0250, L501.9910, L506.1001, L100.0500, L501.9520, L500.4050, L501.9985, L500.4100 ####[facility] [address] [place], [address] Bilirubin [Mass/Vol] 0.42 mg/dL Normal 0.00-1.30 [facility] Comment on above: Performed By: #### L 502.0250, L501.9910, L506.1001, L100.0500, L501.9520, L500.4050, L501.9985, L500.4100 ####[facility] [address] [place], [address] BUN/CRE 22.6 RATIO High 10-20 [facility] Comment on above: Performed By: #### L 502.0250, L501.9910, L506.1001, L100.0500, L501.9520, L500.4050, L501.9985, L500.4100 ####[facility] [address] [place], [address] Calcium [Mass/Vol] 9.4 mg/dL Normal 7.6-11.0 [facility] Comment on above: Performed By: #### L 502.0250, L501.9910, L506.1001, L100.0500, L501.9520, L500.4050, L501.9985, L500.4100 ####[facility] [address] [place], [address] Chloride [Moles/Vol] 103 mmol/L Normal 98-108 [facility] Comment on above: Performed By: #### L 502.0250, L501.9910, L506.1001, L100.0500, L501.9520, L500.4050, L501.9985, L500.4100 ####[facility] [address] [place], [address] CO2 [Moles/Vol] 28.2 mmol/L Normal 21.0-32.0 [facility] Comment on above: Performed By: #### L 502.0250, L501.9910, L506.1001, L100.0500, L501.9520, L500.4050, L501.9985, L500.4100 ####[facility] [address] [place], [place], [id number] Creatinine [Mass/Vol] 1.55 mg/dL High 0.70-1.20 [facility] Comment on above: Performed By: #### L 502.0250, L501.9910, L506.1001, L100.0500, L501.9520, L500.4050, L501.9985, L500.4100 ####[facility] [address] [place], [place], [id number] GAP 11 Normal 5-15 [facility] Comment on above: Performed By: #### L 502.0250, L501.9910, L506.1001, L100.0500, L501.9520, L500.4050, L501.9985, L500.4100 ####[facility] [address] [place], [address] GFR/1.73 sq M.predicted among non-blacks MDRD (S/P/Bld) [Vol rate/Area] 47 mL/min/{1.73_m2} Low >60 [facility] Comment on above: Result Comment: mL/m in/1.73m2 CKD-EPI Creatinine Equation (2020) Performed By: #### L 502.0250, L501.9910, L506.1001, L100.0500, L501.9520, L500.4050, L501.9985, L500.4100 ####[facility] [address] [place], [place], [phone] Globulin (S) [Mass/Vol] 3.0 g/dL Normal 2.2-4.2 [facility] Comment on above: Performed By: #### L 502.0250, L501.9910, L506.1001, L100.0500, L501.9520, L500.4050, L501.9985, L500.4100 ####[facility] [address] [place], [address] Glucose [Mass/Vol] 309 mg/dL High 70-99 [facility] Comment on above: Performed By: #### L 502.0250, L501.9910, L506.1001, L100.0500, L501.9520, L500.4050, L501.9985, L500.4100 ####[facility] [address] [place], [address] Potassium [Moles/Vol] 4.4 mmol/L Normal 3.3-5.1 [facility] Comment on above: Performed By: #### L 502.0250, L501.9910, L506.1001, L100.0500, L501.9520, L500.4050, L501.9985, L500.4100 ####[facility] [address] [place], [address] Sodium [Moles/Vol] 142 mmol/L Normal 133-145 [facility] Comment on above: Performed By: #### L 502.0250, L501.9910, L506.1001, L100.0500, L501.9520, L500.4050, L501.9985, L500.4100 ####[facility] [address] [place], [address] T PROT 6.9 g/dL Normal 5.9-8.4 [facility] Comment on above: Performed By: #### L 502.0250, L501.9910, L506.1001, L100.0500, L501.9520, L500.4050, L501.9985, L500.4100 ####[facility] [address] [place], [address] Urea nitrogen [Mass/Vol] 35 mg/dL High 4-19 [facility] Comment on above: Performed By: #### L 502.0250, L501.9910, L506.1001, L100.0500, L501.9520, L500.4050, L501.9985, L500.4100 ####[facility] [address] [place], [place], [phone] Hemoglobin A1con 11-27-2024 HbA1c (Bld) [Mass fraction] 8.0 % High <=5.6 [facility] Comment on above: Result Comment: Norm al < 5.7 % Prediabetic 5.7 - 6.4 % Diabetic >or= 6.5 % Please note range changes. Performed By: #### L 502.0250, L501.9910, L506.1001, L100.0500, L501.9520, L500.4050, L501.9985, L500.4100 ####[facility] [address] [place], [place], [phone] Lipid Profileon 11-27-2024 CHOL:HDL 3.94 Normal [facility] Comment on above: Performed By: #### L 502.0250, L501.9910, L506.1001, L100.0500, L501.9520, L500.4050, L501.9985, L500.4100 ####[facility] [address] [place], [place], [phone] Cholesterol [Mass/Vol] 134 mg/dL Normal <=200 [facility] Comment on above: Result Comment: Chol esterol level, Desirable <200 mg/dLBorderline high cholesterol 200-239 mg/dLHigh cholesterol >=240 mg/dLRecommendations of the NCEP Adult Treatment Panel for thefollowing risk-cutoff thresholds for the [place] Americanpopulation. Performed By: #### L 502.0250, L501.9910, L506.1001, L100.0500, L501.9520, L500.4050, L501.9985, L500.4100 ####[facility] [address] [place], [address] Cholesterol in HDL [Mass/Vol] 34 mg/dL Low [facility] Comment on above: Result Comment: Elicia onal Cholesterol Education Program (NCEP) guidelines:<40 mg/dL: Low HDL-cholesterol (major risk factor for CHD)>= 60 mg/dL: High HDL-cholesterol (negative risk factor forCHD)HDL-cholesterol is affected by a number of factors, e.g.smoking, exercise, hormones, sex and age. Performed By: #### L 502.0250, L501.9910, L506.1001, L100.0500, L501.9520, L500.4050, L501.9985, L500.4100 ####[facility] [address] [place], [address] Cholesterol in LDL [Mass/Vol] 74 mg/dL Normal [facility] Comment on above: Result Comment: Bord dwobhi=676-358 mg/dL Higher Snap=009 mg/dL or greaterFriedwald Equation for LDL-C Performed By: #### L 502.0250, L501.9910, L506.1001, L100.0500, L501.9520, L500.4050, L501.9985, L500.4100 ####[facility] [address] [place], [address] Cholesterol in VLDL [Mass/Vol] 26 mg/dL Normal 5-40 [facility] Comment on above: Performed By: #### L 502.0250, L501.9910, L506.1001, L100.0500, L501.9520, L500.4050, L501.9985, L500.4100 ####[facility] [address] [place], [address] Triglyceride [Mass/Vol] 129 mg/dL Normal W [facility] Comment on above: Result Comment: The drugs N-Acetylcysteine and Metamizole may falselydepress this assay.Normal range: <150 mg/dLBorderline High: 150-199 mg/dLHigh: 200-499 mg/dLVery High: >500 mg/dL Performed By: #### L 502.0250, L501.9910, L506.1001, L100.0500, L501.9520, L500.4050, L501.9985, L500.4100 ####[facility] [address] [place], [place], [phone] Microalb:Creat Ratio,Random URon 11-27-2024 Creatinine [Mass/Vol] 65.40 mg/dL Normal 39.00- 259.0 0 [facility] Comment on above: Performed By: #### L 502.0250, L501.9910, L506.1001, L100.0500, L501.9520, L500.4050, L501.9985, L500.4100 ####[facility] [address] [place], [place], [phone] MALB:CREAT 95.1 mg/g CRE High <30 mg/g CRE [facility] Comment on above: Performed By: #### L 502.0250, L501.9910, L506.1001, L100.0500, L501.9520, L500.4050, L501.9985, L500.4100 ####[facility] [address] [place], [place], [phone] MICROALBUMIN,UR 62.2 mg/L Normal <20 mg/L [facility] Comment on above: Performed By: #### L 502.0250, L501.9910, L506.1001, L100.0500, L501.9520, L500.4050, L501.9985, L500.4100 ####[facility] [address] [place], [address] PSA,Total - Annual Screenon 11-27-2024 PSA,TOT SCREEN 5.05 ng/mL High 0.02-4.00 [facility] Comment on above: Result Comment: This test was performed using the [employer] tPSAmethod. Measured values of a patient??sample can varydepending on the testing procedure used. PSA valuesdetermined on patient samples by different testingprocedures cannot be used interchangeably. If there is achange in PSA assays while monitoring therapy, sequentialtesting should be performed to confirm baseline values. Performed By: #### L 502.0250, L501.9910, L506.1001, L100.0500, L501.9520, L500.4050, L501.9985, L500.4100 ####[facility] [address] [place], [place], [phone] Thyroid Stim Hormone (TSH)on 11-27-2024 TSH 0.912 uIU/mL Normal 0.300-4.200 [facility] Comment on above: Performed By: #### L 502.0250, L501.9910, L506.1001, L100.0500, L501.9520, L500.4050, L501.9985, L500.4100 ####[facility] [address] [place], [place], [phone] Vitamin D,25 Hydroxyon 11-27 Vitamin D 25-OH 42.9 ng/mL Normal 30-100 [facility] Comment on above: Result Comment: Lucretia min D StatusDeficiency: <20 ng/mL (50nmol/L)Insufficiency: 20-30 ng/mL (50-75 nmol/L)Sufficiency: 30-100 ng/mL (75-250 nmol/L)Toxicity: >100 ng/mL (>250 nmol/L) Performed By: #### L 502.0250, L501.9910, L506.1001, L100.0500, L501.9520, L500.4050, L501.9985, L500.4100 ####[facility] [address] [place], [address] Acid Fast Bacillus Cultureon 11-26-2024 [facility] Comment on above: Performed By: #### M 300.2000, M600.2200, M100.3000, M100.2000, M100.4001, M600.2000, M300.3000 ####[facility] [address] [place], [address] [facility] Comment on above: Performed By: #### M 100.4001, M300.2000, M600.2200, M100.2000, M600.2000, M100.3000, M300.3000 ####[facility] [address] [place], [address] Acid Fast Bacillus Smear/Flu oron 11-26-2024 [facility] Comment on above: Performed By: #### M 300.2000, M600.2200, M100.3000, M100.2000, M100.4001, M600.2000, M300.3000 ####[facility] [address] [place], [address] [facility] Comment on above: Performed By: #### M 100.4001, M300.2000, M600.2200, M100.2000, M600.2000, M100.3000, M300.3000 ####[facility] [address] [place], [address] Culture, Fungus 8482on 11-26 [facility] Comment on above: Performed By: #### M 300.2000, M600.2200, M100.3000, M100.2000, M100.4001, M600.2000, M300.3000 ####[facility] [address] [place], [address] [facility] Comment on above: Performed By: #### M 100.4001, M300.2000, M600.2200, M100.2000, M600.2000, M100.3000, M300.3000 ####[facility] [address] [place], [address] Fungus Stain 8136on 11-27-19 [facility] Comment on above: Performed By: #### M 300.2000, M600.2200, M100.3000, M100.2000, M100.4001, M600.2000, M300.3000 ####[facility] [address] [place], [address] [facility] Comment on above: Performed By: #### M 100.4001, M300.2000, M600.2200, M100.2000, M600.2000, M100.3000, M300.3000 ####[facility] [address] [place], [address] Bedside Glucoseon 11-12-2024 FINGERSTICK GLU 167 mg/dL [address] Comment on above: Result Comment: LEIGH ANN GEMENT OF PATIENT CARE PER NURSING PROTOCOL Performed By: #### L 501.080 ####[facility] [address] [place], [address] [facility] deOrdered By: Ion Vega on 11-12-2024 Glucose [Mass/Vol] 167 mg/dL [address] Comment on above: MANAGEMENT OF PATIEN T CARE PER NURSING PROTOCOL Bedside Glucoseon 11-11-2024 FINGERSTICK GLU 223 mg/dL High [address] [place] [address] Comment on above: Result Comment: LEIGH ANN GEMENT OF PATIENT CARE PER NURSING PROTOCOL Performed By: #### L 501.080 ####[facility] [address] [place], [address] FINGERSTICK GLU 192 mg/dL [address] Comment on above: Result Comment: LEIGH ANN GEMENT OF PATIENT CARE PER NURSING PROTOCOL Performed By: #### L 501.080 ####[facility] [address] [place], [address] Bedside Glucoseon 11-10-2024 FINGERSTICK GLU 299 mg/dL High 74-106 [facility] Comment on above: Result Comment: LEIGH ANN GEMENT OF PATIENT CARE PER NURSING PROTOCOL Performed By: #### L 501.080 ####[facility] [address] [place], [address] FINGERSTICK GLU 164 mg/dL High -106 [facility] Comment on above: Result Comment: LEIGH ANN GEMENT OF PATIENT CARE PER NURSING PROTOCOL Performed By: #### L 501.080 ####[facility] [address] [place], [address] Bedside Glucoseon 11-09-2024 FINGERSTICK GLU 257 mg/dL High [address] [place] [address] Comment on above: Result Comment: LEIGH ANN GEMENT OF PATIENT CARE PER NURSING PROTOCOL Performed By: #### L 501.080 ####[facility] [address] [place], [address] FINGERSTICK GLU 239 mg/dL High [facility]106 [facility] Comment on above: Result Comment: LEIGH ANN GEMENT OF PATIENT CARE PER NURSING PROTOCOL Performed By: #### L 501.080 ####[facility] [address] [place], [address] Bedside Glucoseon 11-08-2024 FINGERSTICK GLU 271 mg/dL High -106 [facility] Comment on above: Result Comment: LEIGH ANN GEMENT OF PATIENT CARE PER NURSING PROTOCOL Performed By: #### L 501.080 ####[facility] [address] [place], [address] FINGERSTICK GLU 124 mg/dL High -[address] [place] [address] Comment on above: Result Comment: LEIGH ANN GEMENT OF PATIENT CARE PER NURSING PROTOCOL Performed By: #### L 501.080 ####[facility] [address] [place], [address] L/S Spine Min 4 Viewson 09-2 -5 L/S Spine Min 4 Views Normal [facility] Bedside Glucoseon 11-07-2024 FINGERSTICK GLU 174 mg/dL High 74-106 [facility] Comment on above: Result Comment: LEIGH ANN GEMENT OF PATIENT CARE PER NURSING PROTOCOL Performed By: #### L 501.080 ####[facility] [address] [place], [address] FINGERSTICK GLU 152 mg/dL High 74-106 [facility] Comment on above: Result Comment: LEIGH ANN GEMENT OF PATIENT CARE PER NURSING PROTOCOL Performed By: #### L 501.080 ####[facility] [address] [facility] [address] Bedside Glucoseon 11-06-2024 FINGERSTICK GLU 214 mg/dL High -106 [facility] Comment on above: Result Comment: LEIGH ANN GEMENT OF PATIENT CARE PER NURSING PROTOCOL Performed By: #### L 501.080 ####[facility] [address] [place], [address] FINGERSTICK GLU 102 mg/dL Normal -106 [facility] Comment on above: Result Comment: LEIGH ANN GEMENT OF PATIENT CARE PER NURSING PROTOCOL Performed By: #### L 501.080 ####[facility] [address] [place], [address] FINGERSTICK GLU 101 mg/dL Normal -[address] [place] [address] Comment on above: Result Comment: LEIGH ANN GEMENT OF PATIENT CARE PER NURSING PROTOCOL Performed By: #### L 501.080 ####[facility] [address] [place], [address] Bedside Glucoseon 11-05-2024 FINGERSTICK GLU 227 mg/dL High 74-106 [facility] Comment on above: Result Comment: LEIGH ANN GEMENT OF PATIENT CARE PER NURSING PROTOCOL Performed By: #### L 501.080 ####[facility] [address] [place], [address] FINGERSTICK GLU 190 mg/dL High 74-106 [facility] Comment on above: Result Comment: LEIGH ANN GEMENT OF PATIENT CARE PER NURSING PROTOCOL Performed By: #### L 501.080 ####[facility] [address] [place], [address] FINGERSTICK GLU 88 mg/dL Normal 74-106 [facility] Comment on above: Result Comment: LEIGH ANN GEMENT OF PATIENT CARE PER NURSING PROTOCOL Performed By: #### L 501.080 ####[facility] [address] [place], [address] FINGERSTICK GLU 122 mg/dL High 74-106 [facility] Comment on above: Result Comment: LEIGH ANN GEMENT OF PATIENT CARE PER NURSING PROTOCOL Performed By: #### L 501.080 ####[facility] [address] [place], [address] Bedside Glucoseon 11-04-2024 FINGERSTICK GLU 182 mg/dL High 74-106 [facility] Comment on above: Result Comment: LEIGH ANN GEMENT OF PATIENT CARE PER NURSING PROTOCOL Performed By: #### L 501.080 ####[facility] [address] [place], [address] FINGERSTICK GLU 149 mg/dL High 74-106 [facility] Comment on above: Result Comment: LEIGH ANN GEMENT OF PATIENT CARE PER NURSING PROTOCOL Performed By: #### L 501.080 ####[facility] [address] [place], [address] FINGERSTICK GLU 149 mg/dL High 74-106 [facility] Comment on above: Result Comment: LEIGH ANN GEMENT OF PATIENT CARE PER NURSING PROTOCOL Performed By: #### L 501.080 ####[facility] [address] [place], [address] Bedside Glucoseon 11-03-2024 FINGERSTICK GLU 194 mg/dL High 74-106 [facility] Comment on above: Result Comment: LEIGH ANN GEMENT OF PATIENT CARE PER NURSING PROTOCOL Performed By: #### L 501.080 ####[facility] [address] [place], [address] FINGERSTICK GLU 79 mg/dL Normal 74-106 [facility] Comment on above: Result Comment: LEIGH ANN GEMENT OF PATIENT CARE PER NURSING PROTOCOL Performed By: #### L 501.080 ####[facility] [address] [place], [address] Bedside Glucoseon 11-02-2024 FINGERSTICK GLU 150 mg/dL High 74-106 [facility] Comment on above: Result Comment: LEIGH ANN GEMENT OF PATIENT CARE PER NURSING PROTOCOL Performed By: #### L 501.080 ####[facility] [address] [place], [address] FINGERSTICK GLU 81 mg/dL Normal 74-106 [facility] Comment on above: Result Comment: LEIGH ANN GEMENT OF PATIENT CARE PER NURSING PROTOCOL Performed By: #### L 501.080 ####[facility] [address] [place], [address] FINGERSTICK GLU 67 mg/dL Low 74-106 [facility] Comment on above: Result Comment: LEIGH ANN GEMENT OF PATIENT CARE PER NURSING PROTOCOL Performed By: #### L 501.080 ####[facility] [address] [place], [address] Absolute lymphocyte countOrd ered By: Ion Vega on 11-01-2024 Lymphocytes Auto (Unsp spec) [#/Vol] 1.25 10*3/uL 0.83-4.51 [facility] Absolute neutrophil countOrd ered By: Ion Vega on 11-01-2024 Neutrophils (Bld) [#/Vol] 4.1 10*3/uL 2.0-7.7 [facility] Anion gap in Serum or Plasma Ordered By: Ion Vega on 11-01-2024 Anion gap [Moles/Vol] 12 mmol/L 5-15 [facility] Automated lymphocyte count a s percentage of total leukocytesOrdered By: Ion Vega on 11-01-2024 Lymphocytes/100 WBC Auto (Unsp spec) 19.1 % [facility] BUN/creatinine ratioOrdered By: Ion Vega on 11-01-2024 Urea nitrogen/Creatinine [Mass ratio] 35.4 mg/mg High - [facility] Basic Metabolic Profile (BMP )on 11-01-2024 BUN/CRE 35.4 RATIO High - [facility] Comment on above: Performed By: #### L 500.2500, L100.0100 ####[facility] [address] [place], [address] Calcium [Mass/Vol] 9.3 mg/dL Normal 7.6-11.0 [facility] Comment on above: Performed By: #### L 500.2500, L100.0100 ####[facility] [address] [place], [address] Chloride [Moles/Vol] 105 mmol/L Normal 98-108 [facility] Comment on above: Performed By: #### L 500.2500, L100.0100 ####[facility] [address] [place], [address] CO2 [Moles/Vol] 23.1 mmol/L Normal 21.0-32.0 [facility] Comment on above: Performed By: #### L 500.2500, L100.0100 ####[facility] [address] [place], [address] Creatinine [Mass/Vol] 1.09 mg/dL Normal 0.70-1.20 [facility] Comment on above: Performed By: #### L 500.2500, L100.0100 ####[facility] [address] [place], [address] ECRCL 75.17 ml/min Normal 50-250 [facility] Comment on above: Performed By: #### L 500.2500, L100.0100 ####[facility] [address] [place], [address] GAP 12 Normal 5-15 [facility] Comment on above: Performed By: #### L 500.2500, L100.0100 ####[facility] [address] [place], [address] GFR/1.73 sq M.predicted among non-blacks MDRD (S/P/Bld) [Vol rate/Area] 72 mL/min/{1.73_m2} Normal >60 [facility] Comment on above: Result Comment: mL/m in/1.73m2 CKD-EPI Creatinine Equation (2020) Performed By: #### L 500.2500, L100.0100 ####[facility] [address] [place], [address] Glucose [Mass/Vol] 99 mg/dL Normal 70-99 [facility] Comment on above: Performed By: #### L 500.2500, L100.0100 ####[facility] [address] [place], [address] Potassium [Moles/Vol] 3.9 mmol/L Normal 3.3-5.1 [facility] Comment on above: Performed By: #### L 500.2500, L100.0100 ####[facility] [address] [place], [address] Sodium [Moles/Vol] 141 mmol/L Normal 133-145 [facility] Comment on above: Performed By: #### L 500.2500, L100.0100 ####[facility] [address] [place], [address] Urea nitrogen [Mass/Vol] 39 mg/dL High 4-19 [facility] Comment on above: Performed By: #### L 500.2500, L100.0100 ####[facility] [address] [place], [address] Basophil percentageOrdered B y: Ion Vega on 11-01-2024 Basophils/100 WBC (Bld) 0.5 % 0-1 [facility] Bedside Glucoseon 11-01-2024 FINGERSTICK GLU 155 mg/dL High 74-106 [facility] Comment on above: Result Comment: LEIGH ANN GEMENT OF PATIENT CARE PER NURSING PROTOCOL Performed By: #### L 501.080 ####[facility] [address] [place], [address] FINGERSTICK GLU 109 mg/dL High 74-106 [facility] Comment on above: Result Comment: LEIGH ANN GEMENT OF PATIENT CARE PER NURSING PROTOCOL Performed By: #### L 501.080 ####[facility] [address] [place], [address] CBC W/Diff, Automatedon 10-14 Absolute Lymph 1.25 X10 3/uL Normal 0.83-4.51 [facility] Comment on above: Performed By: #### L 500.2500, L100.0100 ####[facility] [address] [place], [address] Absolute Neut 4.1 X10 3/uL Normal 2.0-7.7 [facility] Comment on above: Performed By: #### L 500.2500, L100.0100 ####[facility] [address] [place], [address] Basophils/100 WBC (Bld) 0.5 % Normal 0-1 [facility] Comment on above: Performed By: #### L 500.2500, L100.0100 ####[facility] [address] [place], [address] Eosinophils/100 WBC (Bld) 7.7 % High 0-5 [facility] Comment on above: Performed By: #### L 500.2500, L100.0100 ####[facility] [address] [place], [address] Erythrocyte distribution width (RBC) [Ratio] 12.6 % Normal 11.6-14.6 [facility] Comment on above: Performed By: #### L 500.2500, L100.0100 ####[facility] [address] [place], [address] Hematocrit (Bld) [Volume fraction] 41.1 % Normal 40-54 [facility] Comment on above: Performed By: #### L 500.2500, L100.0100 ####[facility] [address] [place], [address] Hemoglobin (Bld) [Mass/Vol] 13.9 g/dL Normal 13.0-16.5 [facility] Comment on above: Performed By: #### L 500.2500, L100.0100 ####[facility] [address] [place], [address] IG% 0.600 Normal 0.0-0.9 [facility] Comment on above: Result Comment: IG% - Immature Granulocytes (promyelocytes, myelocytes andmetamyelocytes) > 1% indicates that a LEFT SHIFT is Present. Performed By: #### L 500.2500, L100.0100 ####[facility] [address] [place], [address] Lymphocytes/100 WBC (Bld) 19.1 % Normal 19-41 [facility] Comment on above: Performed By: #### L 500.2500, L100.0100 ####[facility] [address] [place], [address] MCH (RBC) [Entitic mass] 31.0 pg Normal 27.0-32.0 [facility] Comment on above: Performed By: #### L 500.2500, L100.0100 ####[facility] [address] [place], [address] MCHC (RBC) [Mass/Vol] 33.8 g/dL Normal 32-36 [facility] Comment on above: Performed By: #### L 500.2500, L100.0100 ####[facility] [address] [place], [address] MCV (RBC) [Entitic vol] 91.5 fL Normal 80-94 [facility] Comment on above: Performed By: #### L 500.2500, L100.0100 ####[facility] [address] [place], [address] Monocytes/100 WBC (Bld) 9.2 % Normal 0-10 [facility] Comment on above: Performed By: #### L 500.2500, L100.0100 ####[facility] [address] [place], [address] Neutrophils/100 WBC (Bld) 62.9 % Normal 47-70 [facility] Comment on above: Performed By: #### L 500.2500, L100.0100 ####[facility] [address] [place], [address] Nucleated RBC (Bld) [#/Vol] 0 10*3/uL Normal 0-5 [facility] Comment on above: Performed By: #### L 500.2500, L100.0100 ####[facility] [address] [place], [address] Platelet mean volume (Bld) [Entitic vol] 10.6 fL Normal 6.2-12.0 [facility] Comment on above: Performed By: #### L 500.2500, L100.0100 ####[facility] [address] [place], [address] Platelets (Bld) [#/Vol] 244 10*3/uL Normal 150-450 [facility] Comment on above: Performed By: #### L 500.2500, L100.0100 ####[facility] [address] [place], [address] RBC (Bld) [#/Vol] 4.49 10*6/uL Low 4.6-6.2 [facility] Comment on above: Performed By: #### L 500.2500, L100.0100 ####[facility] [address] [place], [address] RDW SD 41.1 fl Normal 35.1-43.9 [facility] Comment on above: Performed By: #### L 500.2500, L100.0100 ####[facility] [address] [place], [address] WBC (Bld) [#/Vol] 6.5 10*3/uL Normal 4.4-11.0 [facility] Comment on above: Performed By: #### L 500.2500, L100.0100 ####[facility] [address] [place], [address] Carbon dioxide, total [Moles /volume] in Central venous bloodOrdered By: Ion Vega on 11-01-2024 CO2 [Moles/Vol] 23.1 mmol/L 21.0-32.0 [facility] Chloride assayOrdered By: Braulio Vega on 11-01-2024 Chloride [Moles/Vol] 105 mmol/L 98-108 [facility] Eosinophil percentageOrdered By: Ion Vega on 11-01-2024 Eosinophils/100 WBC (Bld) 7.7 % High 0-5 [facility] Erythrocyte distribution wid th ratioOrdered By: Ion Vega on 11-01-2024 Erythrocyte distribution width (RBC) [Ratio] 12.6 % 11.6-14.6 [facility] Erythrocyte distribution wid th standard deviationOrdered By: Ion Vega on 11-01-2024 Erythrocyte distribution width (RBC) [Ratio] 41.1 fl 35.1-43.9 [facility] Glomerular filtration rate ( GFR) estimation/1.73 sq m using serum, plasma, or whole bOrdered By: Ion Vega on 11-01-2024 GFR/1.73 sq M.predicted among non-blacks MDRD (S/P/Bld) [Vol rate/Area] 72 mL/min/{1.73_m2} >60 [facility] Comment on above: mL/min/1.73m2 CKD-EP I Creatinine Equation (2020) Hematocrit Auto (Bld) [Volum e fraction]Ordered By: Ion Vega on 11-01-2024 Hematocrit (Bld) [Volume fraction] 41.1 % 40-54 [facility] Hemoglobin measurementOrdere d By: Ion Vega 11-01-2024 Hemoglobin (Bld) [Mass/Vol] 13.9 g/dL 13.0-16.5 [facility] Immature granulocytes/100 WB C Auto (Bld)Ordered By: Ion Vega 11-01-2024 Immature granulocytes/100 WBC (Bld) 0.600 % 0.0-0.9 [facility] Comment on above: IG% - Immature Granu locytes (promyelocytes, myelocytes and metamyelocytes) > 1% indicates that a LEFT SHIFT is Present. MCV (mean corpuscular volume ) determinationOrdered By: Ion Vega 11-01-2024 MCV (RBC) [Entitic vol] 91.5 fL 80-94 [facility] Mean corpuscular hemoglobin (MCH) determinationOrdered By: Ion Vega 11-01-2024 MCH (RBC) [Entitic mass] 31.0 pg 27.0-32.0 [facility] Mean corpuscular hemoglobin concentration (MCHC) determinationOrdered By: Ion Vega 11-01-2024 MCHC (RBC) [Mass/Vol] 33.8 g/dL 32-36 [facility] Mean platelet volume determi nationOrdered By: Ion Vega 11-01-2024 Platelet mean volume (Bld) [Entitic vol] 10.6 fL 6.2-12.0 [facility] Monocyte percentageOrdered B y: Ion Vega 11-01-2024 Monocytes/100 WBC (Bld) 9.2 % 0-10 [facility] Neutrophil percentageOrdered By: Ion Vega on 11-01-2024 Neutrophils/100 WBC (Bld) 62.9 % 47-70 [facility] Nucleated red blood cell per centageOrdered By: Ion Vega on 11-01-2024 Nucleated RBC/100 WBC (Bld) [Ratio] 0 % 0-5 [facility] Platelet countOrdered By: Braulio Vega on 11-01-2024 Platelets (Bld) [#/Vol] 244 10*3/uL 150-450 [facility] Potassium measurement (mass/ volume)Ordered By: Ion Vega on 11-01-2024 Potassium (Unsp spec) [Mass/Vol] 3.9 mmol/L 3.3-5.1 [facility] RBC Auto (Bld) [#/Vol]Ordere d By: Ion Vega on 11-01-2024 RBC (Bld) [#/Vol] 4.49 10*6/uL Low 4.6-6.2 [facility] Serum creatinine measurement (mass/volume)Ordered By: Ion Vega on 11-01-2024 Creatinine [Mass/Vol] 1.09 mg/dL 0.70-1.20 [facility] Serum glucose measurement (m ass/volume)Ordered By: Ion Vega on 11-01-2024 Glucose [Mass/Vol] 99 mg/dL 70-99 [facility] Serum or plasma calcium alona urement (mass/volume)Ordered By: Ion Vega on 11-01-2024 Calcium [Mass/Vol] 9.3 mg/dL 7.6-11.0 [facility] Serum or plasma urea nitroge n measurement (mass/volume)Ordered By: Ion Vega on 11-01-2024 Urea nitrogen [Mass/Vol] 39 mg/dL High 4-19 [facility] Sodium levelOrdered By: Ion Vega on 11-01-2024 Sodium [Moles/Vol] 141 mmol/L 133-145 [facility] White blood cell (WBC) count Ordered By: Ion Vega on 11-01-2024 WBC (Bld) [#/Vol] 6.5 10*3/uL 4.4-11.0 [facility] Basic Metabolic Profile (BMP )on 10-31-2024 BUN/CRE 29.2 RATIO High 10-20 [facility] Comment on above: Performed By: #### L 500.2500, L100.0100 ####[facility] [address] [place], [address] Calcium [Mass/Vol] 9.1 mg/dL Normal 7.6-11.0 [facility] Comment on above: Performed By: #### L 500.2500, L100.0100 ####[facility] [address] [place], [address] Chloride [Moles/Vol] 106 mmol/L Normal 98-108 [facility] Comment on above: Performed By: #### L 500.2500, L100.0100 ####[facility] [address] [place], [address] CO2 [Moles/Vol] 26.2 mmol/L Normal 21.0-32.0 [facility] Comment on above: Performed By: #### L 500.2500, L100.0100 ####[facility] [address] [place], [address] Creatinine [Mass/Vol] 1.05 mg/dL Normal 0.70-1.20 [facility] Comment on above: Performed By: #### L 500.2500, L100.0100 ####[facility] [address] [place], [address] ECRCL 78.04 ml/min Normal 50-250 [facility] Comment on above: Performed By: #### L 500.2500, L100.0100 ####[facility] [address] [place], [address] GAP 11 Normal 5-15 [facility] Comment on above: Performed By: #### L 500.2500, L100.0100 ####[facility] [address] [place], [address] GFR/1.73 sq M.predicted among non-blacks MDRD (S/P/Bld) [Vol rate/Area] 75 mL/min/{1.73_m2} Normal >60 [facility] Comment on above: Result Comment: mL/m in/1.73m2 CKD-EPI Creatinine Equation (2020) Performed By: #### L 500.2500, L100.0100 ####[facility] [address] [place], [address] Glucose [Mass/Vol] 136 mg/dL High 70-99 [facility] Comment on above: Performed By: #### L 500.2500, L100.0100 ####[facility] [address] [place], [address] Potassium [Moles/Vol] 4.0 mmol/L Normal 3.3-5.1 [facility] Comment on above: Performed By: #### L 500.2500, L100.0100 ####[facility] [address] [place], [address] Sodium [Moles/Vol] 142 mmol/L Normal 133-145 [facility] Comment on above: Performed By: #### L 500.2500, L100.0100 ####[facility] [address] [place], [address] Urea nitrogen [Mass/Vol] 31 mg/dL High 4-19 [facility] Comment on above: Performed By: #### L 500.2500, L100.0100 ####[facility] [address] [place], [address] Bedside Glucoseon 10-31-2024 FINGERSTICK GLU 172 mg/dL High 74-106 [facility] Comment on above: Result Comment: LEIGH NAN RODRIGUES OF PATIENT CARE PER NURSING PROTOCOL Performed By: #### L 501.080 ####[facility] [address] [place], [address] FINGERSTICK GLU 181 mg/dL High 74-106 [facility] Comment on above: Result Comment: LEIGH ANN GEMENT OF PATIENT CARE PER NURSING PROTOCOL Performed By: #### L 501.080 ####[facility] [address] [place], [address] FINGERSTICK GLU 140 mg/dL High 74-106 [facility] Comment on above: Result Comment: LEIGH ANN GEMENT OF PATIENT CARE PER NURSING PROTOCOL Performed By: #### L 501.080 ####[facility] [address] [place], [address] CBC W/Diff, Automatedon 10-14 Absolute Lymph 1.01 X10 3/uL Normal 0.83-4.51 [facility] Comment on above: Performed By: #### L 500.2500, L100.0100 ####[facility] [address] [place], [address] Absolute Neut 3.7 X10 3/uL Normal 2.0-7.7 [facility] Comment on above: Performed By: #### L 500.2500, L100.0100 ####[facility] [address] [place], [address] Basophils/100 WBC (Bld) 0.3 % Normal 0-1 [facility] Comment on above: Performed By: #### L 500.2500, L100.0100 ####[facility] [address] [place], [address] Eosinophils/100 WBC (Bld) 8.4 % High 0-5 [facility] Comment on above: Performed By: #### L 500.2500, L100.0100 ####[facility] [address] [place], [address] Erythrocyte distribution width (RBC) [Ratio] 12.2 % Normal 11.6-14.6 [facility] Comment on above: Performed By: #### L 500.2500, L100.0100 ####[facility] [address] [place], [address] Hematocrit (Bld) [Volume fraction] 42.4 % Normal 40-54 [facility] Comment on above: Performed By: #### L 500.2500, L100.0100 ####[facility] [address] [place], [address] Hemoglobin (Bld) [Mass/Vol] 14.3 g/dL Normal 13.0-16.5 [facility] Comment on above: Performed By: #### L 500.2500, L100.0100 ####[facility] [address] [place], [address] IG% 0.700 Normal 0.0-0.9 [facility] Comment on above: Result Comment: IG% - Immature Granulocytes (promyelocytes, myelocytes andmetamyelocytes) > 1% indicates that a LEFT SHIFT is Present. Performed By: #### L 500.2500, L100.0100 ####[facility] [address] [place], [address] Lymphocytes/100 WBC (Bld) 17.4 % Low 19-41 [facility] Comment on above: Performed By: #### L 500.2500, L100.0100 ####[facility] [address] [place], [address] MCH (RBC) [Entitic mass] 30.4 pg Normal 27.0-32.0 [facility] Comment on above: Performed By: #### L 500.2500, L100.0100 ####[facility] [address] [place], [address] MCHC (RBC) [Mass/Vol] 33.7 g/dL Normal 32-36 [facility] Comment on above: Performed By: #### L 500.2500, L100.0100 ####[facility] [address] [place], [address] MCV (RBC) [Entitic vol] 90.0 fL Normal 80-94 [facility] Comment on above: Performed By: #### L 500.2500, L100.0100 ####[facility] [address] [place], [address] Monocytes/100 WBC (Bld) 9.3 % Normal 0-10 [facility] Comment on above: Performed By: #### L 500.2500, L100.0100 ####[facility] [address] [place], [address] Neutrophils/100 WBC (Bld) 63.9 % Normal 47-70 [facility] Comment on above: Performed By: #### L 500.2500, L100.0100 ####[facility] [address] [place], [address] Nucleated RBC (Bld) [#/Vol] 0 10*3/uL Normal 0-5 [facility] [facility] Comment on above: Performed By: #### L 500.2500, L100.0100 ####[facility] [address] [place], [address] Platelet mean volume (Bld) [Entitic vol] 10.4 fL Normal 6.2-12.0 [facility] Comment on above: Performed By: #### L 500.2500, L100.0100 ####[facility] [address] [place], [address] Platelets (Bld) [#/Vol] 243 10*3/uL Normal 150-450 [facility] Comment on above: Performed By: #### L 500.2500, L100.0100 ####[facility] [address] [place], [address] RBC (Bld) [#/Vol] 4.71 10*6/uL Normal 4.6-6.2 [facility] Comment on above: Performed By: #### L 500.2500, L100.0100 ####[facility] [address] [place], [address] RDW SD 40.1 fl Normal 35.1-43.9 [facility] Comment on above: Performed By: #### L 500.2500, L100.0100 ####[facility] [address] [place], [address] WBC (Bld) [#/Vol] 5.8 10*3/uL Normal 4.4-11.0 [facility] Comment on above: Performed By: #### L 500.2500, L100.0100 ####[facility] [address] [place], [address] Basic Metabolic Profile (BMP )on 10-30-2024 BUN/CRE 36.0 RATIO High 10-20 [facility] Comment on above: Performed By: #### L 100.0100, L500.2500 ####[facility] [address] [place], [address] Calcium [Mass/Vol] 9.3 mg/dL Normal 7.6-11.0 [facility] Comment on above: Performed By: #### L 100.0100, L500.2500 ####[facility] [address] [place], [address] Chloride [Moles/Vol] 105 mmol/L Normal 98-108 [facility] Comment on above: Performed By: #### L 100.0100, L500.2500 ####[facility] [address] [place], [address] CO2 [Moles/Vol] 26.6 mmol/L Normal 21.0-32.0 [facility] Comment on above: Performed By: #### L 100.0100, L500.2500 ####[facility] [address] [place], [address] Creatinine [Mass/Vol] 0.96 mg/dL Normal 0.70-1.20 [facility] Comment on above: Performed By: #### L 100.0100, L500.2500 ####[facility] [address] [place], [address] ECRCL 85.35 ml/min Normal 50-250 [facility] Comment on above: Performed By: #### L 100.0100, L500.2500 ####[facility] [address] [place], [address] GAP 11 Normal 5-15 [facility] Comment on above: Performed By: #### L 100.0100, L500.2500 ####[facility] [address] [place], [address] GFR/1.73 sq M.predicted among non-blacks MDRD (S/P/Bld) [Vol rate/Area] 84 mL/min/{1.73_m2} Normal >60 [facility] Comment on above: Result Comment: mL/m in/1.73m2 CKD-EPI Creatinine Equation (2020) Performed By: #### L 100.0100, L500.2500 ####[facility] [address] [place], [address] Glucose [Mass/Vol] 117 mg/dL High 70-99 [facility] Comment on above: Performed By: #### L 100.0100, L500.2500 ####[facility] [address] [place], [address] Potassium [Moles/Vol] 4.0 mmol/L Normal 3.3-5.1 [facility] Comment on above: Performed By: #### L 100.0100, L500.2500 ####[facility] [address] [place], [address] Sodium [Moles/Vol] 143 mmol/L Normal 133-145 [facility] Comment on above: Performed By: #### L 100.0100, L500.2500 ####[facility] [address] [place], [address] Urea nitrogen [Mass/Vol] 34 mg/dL High 4-19 [facility] Comment on above: Performed By: #### L 100.0100, L500.2500 ####[facility] [address] [place], [address] Bedside Glucoseon 10-30-2024 FINGERSTICK GLU 130 mg/dL High 74-106 [facility] Comment on above: Result Comment: LEIGH ANN GEMENT OF PATIENT CARE PER NURSING PROTOCOL Performed By: #### L 501.080 ####[facility] [address] [place], [address] FINGERSTICK GLU 127 mg/dL High 74-106 [facility] Comment on above: Result Comment: LEIGH ANN GEMENT OF PATIENT CARE PER NURSING PROTOCOL Performed By: #### L 501.080 ####[facility] [address] [place], [address] FINGERSTICK GLU 104 mg/dL Normal 74-106 [facility] Comment on above: Result Comment: LEIGH ANN GEMENT OF PATIENT CARE PER NURSING PROTOCOL Performed By: #### L 501.080 ####[facility] [address] [place], [address] CBC W/Diff, Automatedon 10-14 Absolute Lymph 1.16 X10 3/uL Normal 0.83-4.51 [facility] Comment on above: Performed By: #### L 100.0100, L500.2500 ####[facility] [address] [place], [address] Absolute Neut 3.9 X10 3/uL Normal 2.0-7.7 [facility] Comment on above: Performed By: #### L 100.0100, L500.2500 ####[facility] [address] [place], [address] Basophils/100 WBC (Bld) 0.3 % Normal 0-1 [facility] Comment on above: Performed By: #### L 100.0100, L500.2500 ####[facility] [address] [place], [address] Eosinophils/100 WBC (Bld) 7.3 % High 0-5 [facility] Comment on above: Performed By: #### L 100.0100, L500.2500 ####[facility] [address] [place], [address] Erythrocyte distribution width (RBC) [Ratio] 12.4 % Normal 11.6-14.6 [facility] Comment on above: Performed By: #### L 100.0100, L500.2500 ####[facility] [address] [place], [address] Hematocrit (Bld) [Volume fraction] 41.4 % Normal 40-54 [facility] Comment on above: Performed By: #### L 100.0100, L500.2500 ####[facility] [address] [place], [address] Hemoglobin (Bld) [Mass/Vol] 13.9 g/dL Normal 13.0-16.5 [facility] Comment on above: Performed By: #### L 100.0100, L500.2500 ####[facility] [address] [place], [address] IG% 0.300 Normal 0.0-0.9 [facility] Comment on above: Result Comment: IG% - Immature Granulocytes (promyelocytes, myelocytes andmetamyelocytes) > 1% indicates that a LEFT SHIFT is Present. Performed By: #### L 100.0100, L500.2500 ####[facility] [address] [place], [address] Lymphocytes/100 WBC (Bld) 18.9 % Low 19-41 [facility] Comment on above: Performed By: #### L 100.0100, L500.2500 ####[facility] [address] [place], [address] MCH (RBC) [Entitic mass] 30.4 pg Normal 27.0-32.0 [facility] Comment on above: Performed By: #### L 100.0100, L500.2500 ####[facility] [address] [place], [address] MCHC (RBC) [Mass/Vol] 33.6 g/dL Normal 32-36 [facility] Comment on above: Performed By: #### L 100.0100, L500.2500 ####[facility] [address] [place], [address] MCV (RBC) [Entitic vol] 90.6 fL Normal 80-94 [facility] Comment on above: Performed By: #### L 100.0100, L500.2500 ####[facility] [address] [place], [address] Monocytes/100 WBC (Bld) 9.1 % Normal 0-10 [facility] Comment on above: Performed By: #### L 100.0100, L500.2500 ####[facility] [address] [place], [address] Neutrophils/100 WBC (Bld) 64.1 % Normal 47-70 [facility] Comment on above: Performed By: #### L 100.0100, L500.2500 ####[facility] [address] [place], [address] Nucleated RBC (Bld) [#/Vol] 0 10*3/uL Normal 0-5 [facility] Comment on above: Performed By: #### L 100.0100, L500.2500 ####[facility] [address] [place], [address] Platelet mean volume (Bld) [Entitic vol] 10.3 fL Normal 6.2-12.0 [facility] Comment on above: Performed By: #### L 100.0100, L500.2500 ####[facility] [address] [place], [address] Platelets (Bld) [#/Vol] 272 10*3/uL Normal 150-450 [facility] Comment on above: Performed By: #### L 100.0100, L500.2500 ####[facility] [address] [place], [address] RBC (Bld) [#/Vol] 4.57 10*6/uL Low 4.6-6.2 [facility] Comment on above: Performed By: #### L 100.0100, L500.2500 ####[facility] [address] [place], [address] RDW SD 40.5 fl Normal 35.1-43.9 [facility] Comment on above: Performed By: #### L 100.0100, L500.2500 ####[facility] [address] [place], [address] WBC (Bld) [#/Vol] 6.1 10*3/uL Normal 4.4-11.0 [facility] Comment on above: Performed By: #### L 100.0100, L500.2500 ####[facility] [address] [place], [address] Basic Metabolic Profile (BMP )on 10-29-2024 BUN/CRE 36.5 RATIO High 10-20 [facility] Comment on above: Performed By: #### L 500.2500, L100.0100 ####[facility] [address] [place], [address] Calcium [Mass/Vol] 9.6 mg/dL Normal 7.6-11.0 [facility] Comment on above: Performed By: #### L 500.2500, L100.0100 ####[facility] [address] [place], [address] Chloride [Moles/Vol] 104 mmol/L Normal 98-108 [facility] Comment on above: Performed By: #### L 500.2500, L100.0100 ####[facility] [address] [place], [address] CO2 [Moles/Vol] 26.0 mmol/L Normal 21.0-32.0 [facility] Comment on above: Performed By: #### L 500.2500, L100.0100 ####[facility] [address] [place], [address] Creatinine [Mass/Vol] 1.07 mg/dL Normal 0.70-1.20 [facility] Comment on above: Performed By: #### L 500.2500, L100.0100 ####[facility] [address] [place], [address] ECRCL 76.37 ml/min Normal 50-250 [facility] Comment on above: Performed By: #### L 500.2500, L100.0100 ####[facility] [address] [place], [address] GAP 11 Normal 5-15 [facility] Comment on above: Performed By: #### L 500.2500, L100.0100 ####[facility] [address] [place], [address] GFR/1.73 sq M.predicted among non-blacks MDRD (S/P/Bld) [Vol rate/Area] 73 mL/min/{1.73_m2} Normal >60 [facility] Comment on above: Result Comment: mL/m in/1.73m2 CKD-EPI Creatinine Equation (2020) Performed By: #### L 500.2500, L100.0100 ####[facility] [address] [place], [address] Glucose [Mass/Vol] 118 mg/dL High 70-99 [facility] Comment on above: Performed By: #### L 500.2500, L100.0100 ####[facility] [address] [place], [address] Potassium [Moles/Vol] 4.0 mmol/L Normal 3.3-5.1 [facility] Comment on above: Performed By: #### L 500.2500, L100.0100 ####[facility] [address] [place], [address] Sodium [Moles/Vol] 141 mmol/L Normal 133-145 [facility] Comment on above: Performed By: #### L 500.2500, L100.0100 ####[facility] [address] [place], [address] Urea nitrogen [Mass/Vol] 39 mg/dL High 4-19 [facility] Comment on above: Performed By: #### L 500.2500, L100.0100 ####[facility] [address] [place], [address] Bedside Glucoseon 10-29-2024 FINGERSTICK GLU 181 mg/dL High 74-106 [facility] Comment on above: Result Comment: LEIGH ANN GEMENT OF PATIENT CARE PER NURSING PROTOCOL Performed By: #### L 501.080 ####[facility] [address] [place], [address] FINGERSTICK GLU 127 mg/dL High 74-106 [facility] Comment on above: Result Comment: LEIGH ANN GEMENT OF PATIENT CARE PER NURSING PROTOCOL Performed By: #### L 501.080 ####[facility] [address] [place], [address] CBC W/Diff, Automatedon -02 18-2024 Absolute Lymph 1.14 X10 3/uL Normal 0.83-4.51 [facility] Comment on above: Performed By: #### L 500.2500, L100.0100 ####[facility] [address] [place], [address] Absolute Neut 4.3 X10 3/uL Normal 2.0-7.7 [facility] Comment on above: Performed By: #### L 500.2500, L100.0100 ####[facility] [address] [place], [address] Basophils/100 WBC (Bld) 0.3 % Normal 0-1 [facility] Comment on above: Performed By: #### L 500.2500, L100.0100 ####[facility] [address] [place], [address] Eosinophils/100 WBC (Bld) 6.1 % High 0-5 [facility] Comment on above: Performed By: #### L 500.2500, L100.0100 ####[facility] [address] [place], [address] Erythrocyte distribution width (RBC) [Ratio] 12.4 % Normal 11.6-14.6 [facility] Comment on above: Performed By: #### L 500.2500, L100.0100 ####[facility] [address] [place], [address] Hematocrit (Bld) [Volume fraction] 41.5 % Normal 40-54 [facility] Comment on above: Performed By: #### L 500.2500, L100.0100 ####[facility] [address] [place], [address] Hemoglobin (Bld) [Mass/Vol] 14.0 g/dL Normal 13.0-16.5 [facility] Comment on above: Performed By: #### L 500.2500, L100.0100 ####[facility] [address] [place], [address] IG% 0.500 Normal 0.0-0.9 [facility] Comment on above: Result Comment: IG% - Immature Granulocytes (promyelocytes, myelocytes andmetamyelocytes) > 1% indicates that a LEFT SHIFT is Present. Performed By: #### L 500.2500, L100.0100 ####[facility] [address] [place], [address] Lymphocytes/100 WBC (Bld) 17.5 % Low 19-41 [facility] Comment on above: Performed By: #### L 500.2500, L100.0100 ####[facility] [address] [place], [address] MCH (RBC) [Entitic mass] 30.6 pg Normal 27.0-32.0 [facility] Comment on above: Performed By: #### L 500.2500, L100.0100 ####[facility] [address] [place], [address] MCHC (RBC) [Mass/Vol] 33.7 g/dL Normal 32-36 [facility] Comment on above: Performed By: #### L 500.2500, L100.0100 ####[facility] [address] [place], [address] MCV (RBC) [Entitic vol] 90.6 fL Normal 80-94 [facility] Comment on above: Performed By: #### L 500.2500, L100.0100 ####[facility] [address] [place], [address] Monocytes/100 WBC (Bld) 10.4 % High 0-10 [facility] Comment on above: Performed By: #### L 500.2500, L100.0100 ####[facility] [address] [place], [address] Neutrophils/100 WBC (Bld) 65.2 % Normal 47-70 [facility] Comment on above: Performed By: #### L 500.2500, L100.0100 ####[facility] [address] [place], [address] Nucleated RBC (Bld) [#/Vol] 0 10*3/uL Normal 0-5 [facility] Comment on above: Performed By: #### L 500.2500, L100.0100 ####[facility] [address] [place], [address] Platelet mean volume (Bld) [Entitic vol] 10.5 fL Normal 6.2-12.0 [facility] Comment on above: Performed By: #### L 500.2500, L100.0100 ####[facility] [address] [place], [address] Platelets (Bld) [#/Vol] 283 10*3/uL Normal 150-450 [facility] Comment on above: Performed By: #### L 500.2500, L100.0100 ####[facility] [address] [place], [address] RBC (Bld) [#/Vol] 4.58 10*6/uL Low 4.6-6.2 [facility] Comment on above: Performed By: #### L 500.2500, L100.0100 ####[facility] [address] [place], [address] RDW SD 40.6 fl Normal 35.1-43.9 [facility] Comment on above: Performed By: #### L 500.2500, L100.0100 ####[facility] [address] [place], [address] WBC (Bld) [#/Vol] 6.5 10*3/uL Normal 4.4-11.0 [facility] Comment on above: Performed By: #### L 500.2500, L100.0100 ####[facility] [address] [place], [address] Basic Metabolic Profile (BMP )on 10-28-2024 BUN/CRE 33.8 RATIO High 10-20 [facility] Comment on above: Performed By: #### L 500.2500, L100.0100 ####[facility] [address] [place], [address] Calcium [Mass/Vol] 9.4 mg/dL Normal 7.6-11.0 [facility] Comment on above: Performed By: #### L 500.2500, L100.0100 ####[facility] [address] [place], [address] Chloride [Moles/Vol] 107 mmol/L Normal 98-108 [facility] Comment on above: Performed By: #### L 500.2500, L100.0100 ####[facility] [address] [place], [address] CO2 [Moles/Vol] 23.7 mmol/L Normal 21.0-32.0 [facility] Comment on above: Performed By: #### L 500.2500, L100.0100 ####[facility] [address] [place], [address] Creatinine [Mass/Vol] 1.13 mg/dL Normal 0.70-1.20 [facility] Comment on above: Performed By: #### L 500.2500, L100.0100 ####[facility] [address] [place], [address] ECRCL 72.32 ml/min Normal 50-250 [facility] Comment on above: Performed By: #### L 500.2500, L100.0100 ####[facility] [address] [place], [address] GAP 11 Normal 5-15 [facility] Comment on above: Performed By: #### L 500.2500, L100.0100 ####[facility] [address] [place], [address] GFR/1.73 sq M.predicted among non-blacks MDRD (S/P/Bld) [Vol rate/Area] 69 mL/min/{1.73_m2} Normal >60 [facility] Comment on above: Result Comment: mL/m in/1.73m2 CKD-EPI Creatinine Equation (2020) Performed By: #### L 500.2500, L100.0100 ####[facility] [address] [place], [address] Glucose [Mass/Vol] 85 mg/dL Normal 70-99 [facility] Comment on above: Performed By: #### L 500.2500, L100.0100 ####[facility] [address] [place], [address] Potassium [Moles/Vol] 4.2 mmol/L Normal 3.3-5.1 [facility] Comment on above: Performed By: #### L 500.2500, L100.0100 ####[facility] [address] [place], [address] Sodium [Moles/Vol] 142 mmol/L Normal 133-145 [facility] Comment on above: Performed By: #### L 500.2500, L100.0100 ####[facility] [address] [place], [address] Urea nitrogen [Mass/Vol] 38 mg/dL High 4-19 [facility] Comment on above: Performed By: #### L 500.2500, L100.0100 ####[facility] [address] [place], [address] Bedside Glucoseon 10-28-2024 FINGERSTICK GLU 201 mg/dL High 74-106 [facility] Comment on above: Result Comment: LEIGH ANN GEMENT OF PATIENT CARE PER NURSING PROTOCOL Performed By: #### L 501.080 ####[facility] [address] [place], [address] FINGERSTICK GLU 79 mg/dL Normal 74-106 [facility] Comment on above: Result Comment: LEIGH ANN GEMENT OF PATIENT CARE PER NURSING PROTOCOL Performed By: #### L 501.080 ####[facility] [address] [place], [address] FINGERSTICK GLU 130 mg/dL High 74-106 [facility] Comment on above: Result Comment: LEIGH ANN GEMENT OF PATIENT CARE PER NURSING PROTOCOL Performed By: #### L 501.080 ####[facility] [address] [place], [address] CBC W/Diff, Automatedon 10-14-2024 Absolute Lymph 1.20 X10 3/uL Normal 0.83-4.51 [facility] Comment on above: Performed By: #### L 500.2500, L100.0100 ####[facility] [address] [place], [address] Absolute Neut 3.7 X10 3/uL Normal 2.0-7.7 [facility] Comment on above: Performed By: #### L 500.2500, L100.0100 ####[facility] [address] [place], [address] Basophils/100 WBC (Bld) 0.7 % Normal 0-1 [facility] Comment on above: Performed By: #### L 500.2500, L100.0100 ####[facility] [address] [place], [address] Eosinophils/100 WBC (Bld) 5.5 % High 0-5 [facility] Comment on above: Performed By: #### L 500.2500, L100.0100 ####[facility] [address] [place], [address] Erythrocyte distribution width (RBC) [Ratio] 12.4 % Normal 11.6-14.6 [facility] Comment on above: Performed By: #### L 500.2500, L100.0100 ####[facility] [address] [place], [address] Hematocrit (Bld) [Volume fraction] 46.3 % Normal 40-54 [facility] Comment on above: Performed By: #### L 500.2500, L100.0100 ####[facility] [address] [place], [address] Hemoglobin (Bld) [Mass/Vol] 15.2 g/dL Normal 13.0-16.5 [facility] Comment on above: Performed By: #### L 500.2500, L100.0100 ####[facility] [address] [place], [address] IG% 0.500 Normal 0.0-0.9 [facility] Comment on above: Result Comment: IG% - Immature Granulocytes (promyelocytes, myelocytes andmetamyelocytes) > 1% indicates that a LEFT SHIFT is Present. Performed By: #### L 500.2500, L100.0100 ####[facility] [address] [place], [address] Lymphocytes/100 WBC (Bld) 20.4 % Normal 19-41 [facility] Comment on above: Performed By: #### L 500.2500, L100.0100 ####[facility] [address] [place], [address] MCH (RBC) [Entitic mass] 30.5 pg Normal 27.0-32.0 [facility] Comment on above: Performed By: #### L 500.2500, L100.0100 ####[facility] [address] [place], [address] MCHC (RBC) [Mass/Vol] 32.8 g/dL Normal 32-36 [facility] Comment on above: Performed By: #### L 500.2500, L100.0100 ####[facility] [address] [place], [address] MCV (RBC) [Entitic vol] 92.8 fL Normal 80-94 [facility] Comment on above: Performed By: #### L 500.2500, L100.0100 ####[facility] [address] [place], [address] Monocytes/100 WBC (Bld) 10.1 % High 0-10 [facility] Comment on above: Performed By: #### L 500.2500, L100.0100 ####[facility] [address] [place], [address] Neutrophils/100 WBC (Bld) 62.8 % Normal 47-70 [facility] Comment on above: Performed By: #### L 500.2500, L100.0100 ####[facility] [address] [place], [address] Nucleated RBC (Bld) [#/Vol] 0 10*3/uL Normal 0-5 [facility] Comment on above: Performed By: #### L 500.2500, L100.0100 ####[facility] [address] [place], [address] Platelet mean volume (Bld) [Entitic vol] 10.4 fL Normal 6.2-12.0 [facility] Comment on above: Performed By: #### L 500.2500, L100.0100 ####[facility] [address] [place], [address] Platelets (Bld) [#/Vol] 272 10*3/uL Normal 150-450 [facility] Comment on above: Performed By: #### L 500.2500, L100.0100 ####[facility] [address] [place], [address] RBC (Bld) [#/Vol] 4.99 10*6/uL Normal 4.6-6.2 [facility] Comment on above: Performed By: #### L 500.2500, L100.0100 ####[facility] [address] [place], [address] RDW SD 42.0 fl Normal 35.1-43.9 [facility] Comment on above: Performed By: #### L 500.2500, L100.0100 ####[facility] [facility] [address] [place], [address] WBC (Bld) [#/Vol] 5.9 10*3/uL Normal 4.4-11.0 [facility] Comment on above: Performed By: #### L 500.2500, L100.0100 ####[facility] [address] [place], [address] Bedside Glucoseon 10-27-2024 FINGERSTICK GLU 169 mg/dL High 74-106 [facility] Comment on above: Result Comment: LEIGH ANN GEMENT OF PATIENT CARE PER NURSING PROTOCOL Performed By: #### L 501.080 ####[facility] [address] [place], [address] FINGERSTICK GLU 110 mg/dL High 74-106 [facility] Comment on above: Result Comment: LEIGH ANN GEMENT OF PATIENT CARE PER NURSING PROTOCOL Performed By: #### L 501.080 ####[facility] [address] [place], [address] FINGERSTICK GLU 54 mg/dL Low 74-106 [facility] Comment on above: Result Comment: LEIGH ANN GEMENT OF PATIENT CARE PER NURSING PROTOCOL Performed By: #### L 501.080 ####[facility] [address] [place], [address] FINGERSTICK GLU 59 mg/dL Low 74-106 [facility] Comment on above: Result Comment: LEIGH ANN GEMENT OF PATIENT CARE PER NURSING PROTOCOL Performed By: #### L 501.080 ####[facility] [address] [place], [address] Glucoseon 10-27-2024 Glucose [Mass/Vol] 109 mg/dL High 70-99 [facility] Comment on above: Performed By: #### L 501.0100 ####[facility] [address] [place], [address] Bedside Glucoseon 10-26-2024 FINGERSTICK GLU 166 mg/dL High 74-106 [facility] Comment on above: Result Comment: LEIGH ANN GEMENT OF PATIENT CARE PER NURSING PROTOCOL Performed By: #### L 501.080 ####[facility] [address] [place], [address] FINGERSTICK GLU 171 mg/dL High 74-106 [facility] Comment on above: Result Comment: LEIGH ANN GEMENT OF PATIENT CARE PER NURSING PROTOCOL Performed By: #### L 501.080 ####[facility] [address] [place], [address] FINGERSTICK GLU 93 mg/dL Normal 74-106 [facility] Comment on above: Result Comment: LEIGH ANN GEMENT OF PATIENT CARE PER NURSING PROTOCOL Performed By: #### L 501.080 ####[facility] [address] [place], [address] Bedside Glucoseon 10-25-2024 FINGERSTICK GLU 172 mg/dL High 74-106 [facility] Comment on above: Result Comment: LEIGH ANN GEMENT OF PATIENT CARE PER NURSING PROTOCOL Performed By: #### L 501.080 ####[facility] [address] [place], [address] FINGERSTICK GLU 184 mg/dL High 74-106 [facility] Comment on above: Result Comment: LEIGH ANN GEMENT OF PATIENT CARE PER NURSING PROTOCOL Performed By: #### L 501.080 ####[facility] [address] [place], [address] FINGERSTICK GLU 178 mg/dL High 74-106 [facility] Comment on above: Result Comment: LEIGH ANN GEMENT OF PATIENT CARE PER NURSING PROTOCOL Performed By: #### L 501.080 ####[facility] [address] [place], [address] FINGERSTICK GLU 122 mg/dL High 74-106 [facility] Comment on above: Result Comment: LEIGH ANN GEMENT OF PATIENT CARE PER NURSING PROTOCOL Performed By: #### L 501.080 ####[facility] [address] [place], [address] Bedside Glucoseon 10-24-2024 FINGERSTICK GLU 174 mg/dL High -[address] [place] [address] Comment on above: Result Comment: LEIGH ANN GEMENT OF PATIENT CARE PER NURSING PROTOCOL Performed By: #### L 501.080 ####[facility] [address] [place], [address] FINGERSTICK GLU 194 mg/dL High 74-106 [facility] Comment on above: Result Comment: LEIGH ANN GEMENT OF PATIENT CARE PER NURSING PROTOCOL Performed By: #### L 501.080 ####[facility] [address] [facility] [address] FINGERSTICK GLU 246 mg/dL High -[address] [place] [address] Comment on above: Result Comment: LEIGH ANN GEMENT OF PATIENT CARE PER NURSING PROTOCOL Performed By: #### L 501.080 ####[facility] [address] [facility] [address] FINGERSTICK GLU 141 mg/dL High 74-106 [facility] Comment on above: Result Comment: LEIGH ANN GEMENT OF PATIENT CARE PER NURSING PROTOCOL Performed By: #### L 501.080 ####[facility] [address] [place], [address] Bedside Glucoseon 10-23-2024 FINGERSTICK GLU 165 mg/dL High 74-106 [facility] Comment on above: Result Comment: LEIGH ANN GEMENT OF PATIENT CARE PER NURSING PROTOCOL Performed By: #### L 501.080 ####[facility] [address] [place], [address] FINGERSTICK GLU 176 mg/dL High 74-106 [facility] Comment on above: Result Comment: LEIGH ANN GEMENT OF PATIENT CARE PER NURSING PROTOCOL Performed By: #### L 501.080 ####[facility] [address] [place], [address] FINGERSTICK GLU 84 mg/dL Normal 74-106 [facility] Comment on above: Result Comment: LEIGH ANN GEMENT OF PATIENT CARE PER NURSING PROTOCOL Performed By: #### L 501.080 ####[facility] [address] [place], [address] Bedside Glucoseon 10-22-2024 FINGERSTICK GLU 273 mg/dL High 74-106 [facility] Comment on above: Result Comment: LEIGH ANN GEMENT OF PATIENT CARE PER NURSING PROTOCOL Performed By: #### L 501.080 ####[facility] [address] [place], [address] FINGERSTICK GLU 241 mg/dL High 74-106 [facility] Comment on above: Result Comment: LEIGH ANN GEMENT OF PATIENT CARE PER NURSING PROTOCOL Performed By: #### L 501.080 ####[facility] [address] [place], [address] FINGERSTICK GLU 114 mg/dL High 74-106 [facility] Comment on above: Result Comment: LEIGH ANN GEMENT OF PATIENT CARE PER NURSING PROTOCOL Performed By: #### L 501.080 ####[facility] [address] [place], [address] FINGERSTICK GLU 116 mg/dL High 74-106 [facility] Comment on above: Result Comment: LEIGH ANN GEMENT OF PATIENT CARE PER NURSING PROTOCOL Performed By: #### L 501.080 ####[facility] [address] [place], [address] Bedside Glucoseon 10-21-2024 FINGERSTICK GLU 247 mg/dL High 74-106 [facility] Comment on above: Result Comment: LEIGH ANN GEMENT OF PATIENT CARE PER NURSING PROTOCOL Performed By: #### L 501.080 ####[facility] [address] [place], [address] FINGERSTICK GLU 198 mg/dL High [address] [place] [address] Comment on above: Result Comment: LEIGH ANN GEMENT OF PATIENT CARE PER NURSING PROTOCOL Performed By: #### L 501.080 ####[facility] [address] [place], [address] FINGERSTICK GLU 192 mg/dL High [address] [place] [address] Comment on above: Result Comment: LEIGH ANN GEMENT OF PATIENT CARE PER NURSING PROTOCOL Performed By: #### L 501.080 ####[facility] [address] [place], [address] FINGERSTICK GLU 252 mg/dL High [address] [place] [address] Comment on above: Result Comment: LEIGH ANN GEMENT OF PATIENT CARE PER NURSING PROTOCOL Performed By: #### L 501.080 ####[facility] [address] [place], [address] FINGERSTICK GLU 81 mg/dL Normal -[address] [place] [address] Comment on above: Result Comment: LEIGH ANN GEMENT OF PATIENT CARE PER NURSING PROTOCOL Performed By: #### L 501.080 ####[facility] [address] [place], [address] Bedside Glucoseon 10-20-2024 FINGERSTICK GLU 177 mg/dL High 74-106 [facility] Comment on above: Result Comment: LEIGH ANN GEMENT OF PATIENT CARE PER NURSING PROTOCOL Performed By: #### L 501.080 ####[facility] [address] [place], [address] FINGERSTICK GLU 207 mg/dL High 74-106 [facility] Comment on above: Result Comment: LEIGH ANN GEMENT OF PATIENT CARE PER NURSING PROTOCOL Performed By: #### L 501.080 ####[facility] [address] [place], [address] FINGERSTICK GLU 194 mg/dL High 74-106 [facility] Comment on above: Result Comment: LEIGH ANN GEMENT OF PATIENT CARE PER NURSING PROTOCOL Performed By: #### L 501.080 ####[facility] [address] [place], [address] FINGERSTICK GLU 102 mg/dL Normal 74-106 [facility] Comment on above: Result Comment: LEIGH ANN GEMENT OF PATIENT CARE PER NURSING PROTOCOL Performed By: #### L 501.080 ####[facility] [address] [place], [address] Bedside Glucoseon 10-19-2024 FINGERSTICK GLU 222 mg/dL High -106 [facility] Comment on above: Result Comment: LEIGH ANN GEMENT OF PATIENT CARE PER NURSING PROTOCOL Performed By: #### L 501.080 ####[facility] [address] [place], [address] FINGERSTICK GLU 201 mg/dL High 74-106 [facility] Comment on above: Result Comment: LEIGH ANN GEMENT OF PATIENT CARE PER NURSING PROTOCOL Performed By: #### L 501.080 ####[facility] [address] [place], [address] FINGERSTICK GLU 182 mg/dL High 74-106 [facility] Comment on above: Result Comment: LEIGH ANN GEMENT OF PATIENT CARE PER NURSING PROTOCOL Performed By: #### L 501.080 ####[facility] [address] [place], [address] FINGERSTICK GLU 83 mg/dL Normal 74-106 [facility] Comment on above: Result Comment: LEIGH ANN GEMENT OF PATIENT CARE PER NURSING PROTOCOL Performed By: #### L 501.080 ####[facility] [address] [place], [address] FINGERSTICK GLU 70 mg/dL Low 74-106 [facility] Comment on above: Result Comment: LEIGH ANN GEMENT OF PATIENT CARE PER NURSING PROTOCOL Performed By: #### L 501.080 ####[facility] [address] [place], [address] Ankle min 3 Viewson 10-19-19 25 Ankle min 3 Views Normal [facility] Bedside Glucoseon 10-18-2024 FINGERSTICK GLU 219 mg/dL High 74-106 [facility] Comment on above: Result Comment: LEIGH ANN GEMENT OF PATIENT CARE PER NURSING PROTOCOL Performed By: #### L 501.080 ####[facility] [address] [place], [address] FINGERSTICK GLU 241 mg/dL High 74-106 [facility] Comment on above: Result Comment: LEIGH ANN GEMENT OF PATIENT CARE PER NURSING PROTOCOL Performed By: #### L 501.080 ####[facility] [address] [place], [address] FINGERSTICK GLU 272 mg/dL High 74-106 [facility] Comment on above: Result Comment: LEIGH ANN GEMENT OF PATIENT CARE PER NURSING PROTOCOL Performed By: #### L 501.080 ####[facility] [address] [place], [address] FINGERSTICK GLU 244 mg/dL High 74-106 [facility] Comment on above: Result Comment: LEIGH ANN GEMENT OF PATIENT CARE PER NURSING PROTOCOL Performed By: #### L 501.080 ####[facility] [address] [place], [address] FINGERSTICK GLU 232 mg/dL High 74-106 [facility] Comment on above: Result Comment: LEIGH ANN GEMENT OF PATIENT CARE PER NURSING PROTOCOL Performed By: #### L 501.080 ####[facility] [address] [place], [address] Foot min 3 Viewson 5 Foot min 3 Views Normal [facility] Bedside Glucoseon 10-17-2024 FINGERSTICK GLU 246 mg/dL High [facility]106 [facility] Comment on above: Result Comment: LEIGH ANN GEMENT OF PATIENT CARE PER NURSING PROTOCOL Performed By: #### L 501.080 ####[facility] [address] [place], [address] FINGERSTICK GLU 214 mg/dL High [address] [place] [address] Comment on above: Result Comment: LEIGH ANN GEMENT OF PATIENT CARE PER NURSING PROTOCOL Performed By: #### L 501.080 ####[facility] [address] [place], [address] FINGERSTICK GLU 286 mg/dL High [address] [place] [address] Comment on above: Result Comment: LEIGH ANN GEMENT OF PATIENT CARE PER NURSING PROTOCOL Performed By: #### L 501.080 ####[facility] [address] [place], [address] FINGERSTICK GLU 176 mg/dL High [address] [place] [address] Comment on above: Result Comment: LEIGH ANN GEMENT OF PATIENT CARE PER NURSING PROTOCOL Performed By: #### L 501.080 ####[facility] [address] [place], [address] Bedside Glucoseon 10-16-2024 FINGERSTICK GLU 220 mg/dL High [address] [place] [address] Comment on above: Result Comment: LEIGH ANN GEMENT OF PATIENT CARE PER NURSING PROTOCOL Performed By: #### L 501.080 ####[facility] [address] [place], [address] FINGERSTICK GLU 209 mg/dL High [address] [place] [address] Comment on above: Result Comment: LEIGH ANN GEMENT OF PATIENT CARE PER NURSING PROTOCOL Performed By: #### L 501.080 ####[facility] [address] [place], [address] FINGERSTICK GLU 218 mg/dL High [address] [place] [address] Comment on above: Result Comment: LEIGH ANN GEMENT OF PATIENT CARE PER NURSING PROTOCOL Performed By: #### L 501.080 ####[facility] [address] [place], [address] FINGERSTICK GLU 87 mg/dL Normal -[address] [place] [address] Comment on above: Result Comment: LEIGH ANN GEMENT OF PATIENT CARE PER NURSING PROTOCOL Performed By: #### L 501.080 ####[facility] [address] [place], [address] Bedside Glucoseon 10-15-2024 FINGERSTICK GLU 241 mg/dL High [address] [place] [address] Comment on above: Result Comment: LEIGH ANN GEMENT OF PATIENT CARE PER NURSING PROTOCOL Performed By: #### L 501.080 ####[facility] [address] [place], [address] FINGERSTICK GLU 214 mg/dL High [address] [place] [address] Comment on above: Result Comment: LEIGH ANN GEMENT OF PATIENT CARE PER NURSING PROTOCOL Performed By: #### L 501.080 ####[facility] [address] [place], [address] FINGERSTICK GLU 213 mg/dL High [address] [place] [address] Comment on above: Result Comment: LEIGH ANN GEMENT OF PATIENT CARE PER NURSING PROTOCOL Performed By: #### L 501.080 ####[facility] [address] [place], [address] FINGERSTICK GLU 111 mg/dL High [address] [place] [address] Comment on above: Result Comment: LEIGH ANN GEMENT OF PATIENT CARE PER NURSING PROTOCOL Performed By: #### L 501.080 ####[facility] [address] [place], [address] Basic Metabolic Profile (BMP )on 10-14-2024 BUN Normal 4-19 [facility] Comment on above: Result Comment: Canc elled via OM: Order cancelled - Patient discharged Performed By: #### L 100.0100, L500.2500 ####[facility] [address] [place], [address] BUN/CRE Normal 10-20 [facility] Comment on above: Result Comment: Canc elled via OM: Order cancelled - Patient discharged Performed By: #### L 100.0100, L500.2500 ####[facility] [address] [place], [address] Calcium Normal 7.6-11.0 [facility] Comment on above: Result Comment: Canc elled via OM: Order cancelled - Patient discharged Performed By: #### L 100.0100, L500.2500 ####[facility] [address] [place], [address] CL Normal 98-108 [facility] Comment on above: Result Comment: Canc elled via OM: Order cancelled - Patient discharged Performed By: #### L 100.0100, L500.2500 ####[facility] [address] [place], [address] CO2 Normal 21.0-32.0 [facility] Comment on above: Result Comment: Canc elled via OM: Order cancelled - Patient discharged Performed By: #### L 100.0100, L500.2500 ####[facility] [address] [place], [address] CREAT,SERUM Normal 0.70-1.20 [facility] Comment on above: Result Comment: Canc elled via OM: Order cancelled - Patient discharged Performed By: #### L 100.0100, L500.2500 ####[facility] [address] [place], [address] eGFR Normal >60 [facility] Comment on above: Result Comment: Canc elled via OM: Order cancelled - Patient discharged Performed By: #### L 100.0100, L500.2500 ####[facility] [address] [place], [address] GAP Normal 5-15 [facility] Comment on above: Result Comment: Canc elled via OM: Order cancelled - Patient discharged Performed By: #### L 100.0100, L500.2500 ####[facility] [address] [place], [address] GLU Normal 70-99 [facility] Comment on above: Result Comment: Canc elled via OM: Order cancelled - Patient discharged Performed By: #### L 100.0100, L500.2500 ####[facility] [address] [place], [address] Potassium Normal 3.3-5.1 [facility] Comment on above: Result Comment: Canc elled via OM: Order cancelled - Patient discharged Performed By: #### L 100.0100, L500.2500 ####[facility] [address] [place], [address] Basic Metabolic Profile (BMP) Normal 133-145 [facility] Comment on above: Result Comment: Canc elled via OM: Order cancelled - Patient discharged Performed By: #### L 100.0100, L500.2500 ####[facility] [address] [place], [address] Bedside Glucoseon 10-14-2024 FINGERSTICK GLU 239 mg/dL High 74-106 [facility] Comment on above: Result Comment: LEIGH ANN RODRIGUES OF PATIENT CARE PER NURSING PROTOCOL Performed By: #### L 501.080 ####[facility] [address] [place], [address] FINGERSTICK GLU 191 mg/dL High 74-106 [facility] Comment on above: Result Comment: LEIGH ANN GEMENT OF PATIENT CARE PER NURSING PROTOCOL Performed By: #### L 501.080 ####[facility] [address] [place], [address] FINGERSTICK GLU 253 mg/dL High 74-106 [facility] Comment on above: Result Comment: LEIGH ANN GEMENT OF PATIENT CARE PER NURSING PROTOCOL Performed By: #### L 501.080 ####[facility] [address] [place], [address] FINGERSTICK GLU 103 mg/dL Normal 74-106 [facility] Comment on above: Result Comment: LEIGH ANN GEMENT OF PATIENT CARE PER NURSING PROTOCOL Performed By: #### L 501.080 ####[facility] [address] [place], [address] CBC W/Diff, Automatedon 09-0 -2024 Absolute Neut Normal 2.0-7.7 [facility] Comment on above: Result Comment: Canc elled via OM: Order cancelled - Patient discharged Performed By: #### L 100.0100, L500.2500 ####[facility] [address] [place], [address] HCT Normal 40-54 [facility] Comment on above: Result Comment: Canc elled via OM: Order cancelled - Patient discharged Performed By: #### L 100.0100, L500.2500 ####[facility] [address] [place], [address] HGB Normal 13.0-16.5 [facility] Comment on above: Result Comment: Canc elled via OM: Order cancelled - Patient discharged Performed By: #### L 100.0100, L500.2500 ####[facility] [address] [place], [address] MCH Normal 27.0-32.0 [facility] Comment on above: Result Comment: Canc elled via OM: Order cancelled - Patient discharged Performed By: #### L 100.0100, L500.2500 ####[facility] [address] [place], [address] MCHC Normal 32-36 [facility] Comment on above: Result Comment: Canc elled via OM: Order cancelled - Patient discharged Performed By: #### L 100.0100, L500.2500 ####[facility] [address] [place], [address] MCV Normal 80-94 [facility] Comment on above: Result Comment: Canc elled via OM: Order cancelled - Patient discharged Performed By: #### L 100.0100, L500.2500 ####[facility] [address] [place], [address] NEUT% Normal 47-70 [facility] Comment on above: Result Comment: Canc elled via OM: Order cancelled - Patient discharged Performed By: #### L 100.0100, L500.2500 ####[facility] [address] [place], [address] PLT Normal 150-450 [facility] Comment on above: Result Comment: Canc elled via OM: Order cancelled - Patient discharged Performed By: #### L 100.0100, L500.2500 ####[facility] [address] [place], [address] RBC Normal 4.6-6.2 [facility] Comment on above: Result Comment: Canc elled via OM: Order cancelled - Patient discharged Performed By: #### L 100.0100, L500.2500 ####[facility] [address] [place], [address] RDW CV Normal 11.6-14.6 [facility] Comment on above: Result Comment: Canc elled via OM: Order cancelled - Patient discharged Performed By: #### L 100.0100, L500.2500 ####[facility] [address] [place], [address] RDW SD Normal 35.1-43.9 [facility] Comment on above: Result Comment: Canc elled via OM: Order cancelled - Patient discharged Performed By: #### L 100.0100, L500.2500 ####[facility] [address] [place], [address] WBC Normal 4.4-11.0 [facility] Comment on above: Result Comment: Canc elled via OM: Order cancelled - Patient discharged Performed By: #### L 100.0100, L500.2500 ####[facility] [address] [place], [address] Culture, Anaerobic Any Sourc sanchez 10-14-2024 CUAN RESULTS CALLED TO CHRISS ROONEY 10/13/24 1622 Kanwal Gutierres. REPORT READ BACK BY . UNK UNK DISTAL PHALANX COLLECTED IN OR No anaerobic bacteria isolated. [facility] Comment on above: Performed By: #### M 300.2000, M600.2200, M100.3000, M100.2000, M100.4001, M600.2000, M300.3000 ####[facility] [address] [place], [address] CUAN UNK UNK RIGHT 3RD TOE TISSUE COLLECTED IN OR No anaerobic bacteria isolated. [facility] Comment on above: Performed By: #### M 100.4001, M300.2000, M600.2200, M100.2000, M600.2000, M100.3000, M300.3000 ####[facility] [address] [place], [address] Wound Cultureon 10-14-2024 Normal [facility] Comment on above: Performed By: #### M 100.4001, M300.2000, M600.2200, M100.2000, M600.2000, M100.3000, M300.3000 ####[facility] [address] [place], [address] Basic Metabolic Profile (BMP )on 10-13-2024 BUN Normal 4-19 [facility] Comment on above: Result Comment: Canc elled via OM: Order cancelled - Patient discharged Performed By: #### L 500.2500, L100.0100 ####[facility] [address] [place], [address] BUN/CRE Normal 10-20 [facility] Comment on above: Result Comment: Canc elled via OM: Order cancelled - Patient discharged Performed By: #### L 500.2500, L100.0100 ####[facility] [address] [place], [address] Calcium Normal 7.6-11.0 [facility] Comment on above: Result Comment: Canc elled via OM: Order cancelled - Patient discharged Performed By: #### L 500.2500, L100.0100 ####[facility] [address] [place], [address] CL Normal 98-108 [facility] Comment on above: Result Comment: Canc elled via OM: Order cancelled - Patient discharged Performed By: #### L 500.2500, L100.0100 ####[facility] [address] [place], [address] CO2 Normal 21.0-32.0 [facility] Comment on above: Result Comment: Canc elled via OM: Order cancelled - Patient discharged Performed By: #### L 500.2500, L100.0100 ####[facility] [address] [place], [address] CREAT,SERUM Normal 0.70-1.20 [facility] Comment on above: Result Comment: Canc elled via OM: Order cancelled - Patient discharged Performed By: #### L 500.2500, L100.0100 ####[facility] [address] [place], [address] eGFR Normal >60 [facility] Comment on above: Result Comment: Canc elled via OM: Order cancelled - Patient discharged Performed By: #### L 500.2500, L100.0100 ####[facility] [address] [place], [address] GAP Normal 5-15 [facility] Comment on above: Result Comment: Canc elled via OM: Order cancelled - Patient discharged Performed By: #### L 500.2500, L100.0100 ####[facility] [address] [place], [address] GLU Normal 70-99 [facility] Comment on above: Result Comment: Canc elled via OM: Order cancelled - Patient discharged Performed By: #### L 500.2500, L100.0100 ####[facility] [address] [place], [address] Potassium Normal 3.3-5.1 [facility] Comment on above: Result Comment: Canc elled via OM: Order cancelled - Patient discharged Performed By: #### L 500.2500, L100.0100 ####[facility] [address] [place], [address] Basic Metabolic Profile (BMP) Normal 133-145 [facility] Comment on above: Result Comment: Canc elled via OM: Order cancelled - Patient discharged Performed By: #### L 500.2500, L100.0100 ####[facility] [address] [place], [address] Bedside Glucoseon 10-13-2024 FINGERSTICK GLU 278 mg/dL High 74-106 [facility] Comment on above: Result Comment: LEIGH ANN LILIA OF PATIENT CARE PER NURSING PROTOCOL Performed By: #### L 501.080 ####[facility] [address] [place], [address] FINGERSTICK GLU 169 mg/dL High 74-106 [facility] Comment on above: Result Comment: LEIGH ANN GEMENT OF PATIENT CARE PER NURSING PROTOCOL Performed By: #### L 501.080 ####[facility] [address] [place], [address] FINGERSTICK GLU 358 mg/dL High 74-106 [facility] Comment on above: Result Comment: LEIGH ANN GEMENT OF PATIENT CARE PER NURSING PROTOCOL Performed By: #### L 501.080 ####[facility] [address] [place], [address] FINGERSTICK GLU 205 mg/dL High 74-106 [facility] Comment on above: Result Comment: LEIGH ANN GEMENT OF PATIENT CARE PER NURSING PROTOCOL Performed By: #### L 501.080 ####[facility] [address] [place], [address] CBC W/Diff, Automatedon 08-3 Absolute Neut Normal 2.0-7.7 [facility] Comment on above: Result Comment: Canc elled via OM: Order cancelled - Patient discharged Performed By: #### L 500.2500, L100.0100 ####[facility] [address] [place], [address] HCT Normal 40-54 [facility] Comment on above: Result Comment: Canc elled via OM: Order cancelled - Patient discharged Performed By: #### L 500.2500, L100.0100 ####[facility] [address] [place], [address] HGB Normal 13.0-16.5 [facility] Comment on above: Result Comment: Canc elled via OM: Order cancelled - Patient discharged Performed By: #### L 500.2500, L100.0100 ####[facility] [address] [place], [address] MCH Normal 27.0-32.0 [facility] Comment on above: Result Comment: Canc elled via OM: Order cancelled - Patient discharged Performed By: #### L 500.2500, L100.0100 ####[facility] [address] [place], [address] MCHC Normal 32-36 [facility] Comment on above: Result Comment: Canc elled via OM: Order cancelled - Patient discharged Performed By: #### L 500.2500, L100.0100 ####[facility] [address] [place], [address] MCV Normal 80-94 [facility] Comment on above: Result Comment: Canc elled via OM: Order cancelled - Patient discharged Performed By: #### L 500.2500, L100.0100 ####[facility] [address] [place], [address] NEUT% Normal 47-70 [facility] Comment on above: Result Comment: Canc elled via OM: Order cancelled - Patient discharged Performed By: #### L 500.2500, L100.0100 ####[facility] [address] [place], [address] PLT Normal 150-450 [facility] Comment on above: Result Comment: Canc elled via OM: Order cancelled - Patient discharged Performed By: #### L 500.2500, L100.0100 ####[facility] [address] [place], [address] RBC Normal 4.6-6.2 [facility] Comment on above: Result Comment: Canc elled via OM: Order cancelled - Patient discharged Performed By: #### L 500.2500, L100.0100 ####[facility] [address] [place], [address] RDW CV Normal 11.6-14.6 [facility] Comment on above: Result Comment: Canc elled via OM: Order cancelled - Patient discharged Performed By: #### L 500.2500, L100.0100 ####[facility] [address] [place], [address] RDW SD Normal 35.1-43.9 [facility] Comment on above: Result Comment: Canc elled via OM: Order cancelled - Patient discharged Performed By: #### L 500.2500, L100.0100 ####[facility] [address] [place], [address] WBC Normal 4.4-11.0 [facility] Comment on above: Result Comment: Canc elled via OM: Order cancelled - Patient discharged Performed By: #### L 500.2500, L100.0100 ####[facility] [address] [place], [address] Wound Cultureon 10-13-2024 WC Normal [facility] Comment on above: Performed By: #### M 300.2000, M600.2200, M100.3000, M100.2000, M100.4001, M600.2000, M300.3000 ####[facility] [address] [place], [address] Basic Metabolic Profile (BMP )on 10-12-2024 BUN/CRE 25.9 RATIO High 10-20 [facility] Comment on above: Performed By: #### L 500.2500, L100.0100 ####[facility] [address] [place], [address] Calcium [Mass/Vol] 8.9 mg/dL Normal 7.6-11.0 [facility] Comment on above: Performed By: #### L 500.2500, L100.0100 ####[facility] [address] [place], [address] Chloride [Moles/Vol] 105 mmol/L Normal 98-108 [facility] Comment on above: Performed By: #### L 500.2500, L100.0100 ####[facility] [address] [place], [address] CO2 [Moles/Vol] 24.8 mmol/L Normal 21.0-32.0 [facility] Comment on above: Performed By: #### L 500.2500, L100.0100 ####[facility] [address] [place], [address] Creatinine [Mass/Vol] 0.93 mg/dL Normal 0.70-1.20 [facility] Comment on above: Performed By: #### L 500.2500, L100.0100 ####[facility] [address] [place], [address] ECRCL 88.69 ml/min Normal 50-250 [facility] Comment on above: Performed By: #### L 500.2500, L100.0100 ####[facility] [address] [place], [address] GAP 12 Normal 5-15 [facility] Comment on above: Performed By: #### L 500.2500, L100.0100 ####[facility] [address] [place], [address] GFR/1.73 sq M.predicted among non-blacks MDRD (S/P/Bld) [Vol rate/Area] 87 mL/min/{1.73_m2} Normal >60 [facility] Comment on above: Result Comment: mL/m in/1.73m2 CKD-EPI Creatinine Equation (2020) Performed By: #### L 500.2500, L100.0100 ####[facility] [address] [place], [address] Glucose [Mass/Vol] 156 mg/dL High 70-99 [facility] Comment on above: Performed By: #### L 500.2500, L100.0100 ####[facility] [address] [place], [address] Potassium [Moles/Vol] 3.7 mmol/L Normal 3.3-5.1 [facility] Comment on above: Performed By: #### L 500.2500, L100.0100 ####[facility] [address] [place], [address] Sodium [Moles/Vol] 142 mmol/L Normal 133-145 [facility] Comment on above: Performed By: #### L 500.2500, L100.0100 ####[facility] [address] [place], [address] Urea nitrogen [Mass/Vol] 24 mg/dL High - [facility] Comment on above: Performed By: #### L 500.2500, L100.0100 ####[facility] [address] [place], [address] BUN Normal - [facility] Comment on above: Result Comment: Canc elled via OM: Order cancelled - Patient discharged Performed By: #### L 500.2500, L100.0100 ####[facility] [address] [place], [address] BUN/CRE Normal -20 [facility] Comment on above: Result Comment: Canc elled via OM: Order cancelled - Patient discharged Performed By: #### L 500.2500, L100.0100 ####[facility] [address] [place], [address] Calcium Normal 7.6-11.0 [facility] Comment on above: Result Comment: Canc elled via OM: Order cancelled - Patient discharged Performed By: #### L 500.2500, L100.0100 ####[facility] [address] [place], [address] CL Normal 98-108 [facility] Comment on above: Result Comment: Canc elled via OM: Order cancelled - Patient discharged Performed By: #### L 500.2500, L100.0100 ####[facility] [address] [place], [address] CO2 Normal 21.0-32.0 [facility] Comment on above: Result Comment: Canc elled via OM: Order cancelled - Patient discharged Performed By: #### L 500.2500, L100.0100 ####[facility] [address] [place], [address] CREAT,SERUM Normal 0.70-1.20 [facility] Comment on above: Result Comment: Canc elled via OM: Order cancelled - Patient discharged Performed By: #### L 500.2500, L100.0100 ####[facility] [address] [place], [address] eGFR Normal >60 [facility] Comment on above: Result Comment: Canc elled via OM: Order cancelled - Patient discharged Performed By: #### L 500.2500, L100.0100 ####[facility] [address] [place], [address] GAP Normal 5-15 [facility] Comment on above: Result Comment: Canc elled via OM: Order cancelled - Patient discharged Performed By: #### L 500.2500, L100.0100 ####[facility] [address] [place], [address] GLU Normal 70-99 [facility] Comment on above: Result Comment: Canc elled via OM: Order cancelled - Patient discharged Performed By: #### L 500.2500, L100.0100 ####[facility] [address] [place], [address] Potassium Normal 3.3-5.1 [facility] Comment on above: Result Comment: Canc elled via OM: Order cancelled - Patient discharged Performed By: #### L 500.2500, L100.0100 ####[facility] [address] [place], [address] Basic Metabolic Profile (BMP) Normal 133-145 [facility] Comment on above: Result Comment: Canc elled via OM: Order cancelled - Patient discharged Performed By: #### L 500.2500, L100.0100 ####[facility] [address] [place], [address] Bedside Glucoseon 10-12-2024 FINGERSTICK GLU 328 mg/dL High 74-106 [facility] Comment on above: Result Comment: LEIGH ANN GEMENT OF PATIENT CARE PER NURSING PROTOCOL Performed By: #### L 501.080 ####[facility] [address] [place], [address] FINGERSTICK GLU 189 mg/dL High 74-106 [facility] Comment on above: Result Comment: LEIGH ANN GEMENT OF PATIENT CARE PER NURSING PROTOCOL Performed By: #### L 501.080 ####[facility] [address] [place], [address] FINGERSTICK GLU 170 mg/dL High 74-106 [facility] Comment on above: Result Comment: LEIGH ANN GEMENT OF PATIENT CARE PER NURSING PROTOCOL Performed By: #### L 501.080 ####[facility] [address] [place], [address] FINGERSTICK GLU 135 mg/dL High 74-106 [facility] Comment on above: Result Comment: LEIGH ANN GEMENT OF PATIENT CARE PER NURSING PROTOCOL Performed By: #### L 501.080 ####[facility] [address] [place], [address] CBC W/Diff, Automatedon - Absolute Lymph 0.87 X10 3/uL Normal 0.83-4.51 [facility] Comment on above: Performed By: #### L 500.2500, L100.0100 ####[facility] [address] [place], [address] Absolute Neut 5.4 X10 3/uL Normal 2.0-7.7 [facility] Comment on above: Performed By: #### L 500.2500, L100.0100 ####[facility] [address] [place], [address] Basophils/100 WBC (Bld) 0.4 % Normal 0-1 [facility] Comment on above: Performed By: #### L 500.2500, L100.0100 ####[facility] [address] [place], [address] Eosinophils/100 WBC (Bld) 3.4 % Normal 0-5 [facility] Comment on above: Performed By: #### L 500.2500, L100.0100 ####[facility] [address] [place], [address] Erythrocyte distribution width (RBC) [Ratio] 12.0 % Normal 11.6-14.6 [facility] Comment on above: Performed By: #### L 500.2500, L100.0100 ####[facility] [address] [place], [address] Hematocrit (Bld) [Volume fraction] 42.6 % Normal 40-54 [facility] Comment on above: Performed By: #### L 500.2500, L100.0100 ####[facility] [address] [place], [address] Hemoglobin (Bld) [Mass/Vol] 14.3 g/dL Normal 13.0-16.5 [facility] Comment on above: Performed By: #### L 500.2500, L100.0100 ####[facility] [address] [place], [address] IG% 1.200 High 0.0-0.9 [facility] Comment on above: Result Comment: IG% - Immature Granulocytes (promyelocytes, myelocytes andmetamyelocytes) > 1% indicates that a LEFT SHIFT is Present. Performed By: #### L 500.2500, L100.0100 ####[facility] [address] [place], [address] Lymphocytes/100 WBC (Bld) 12.0 % Low 19-41 [facility] Comment on above: Performed By: #### L 500.2500, L100.0100 ####[facility] [address] [place], [address] MCH (RBC) [Entitic mass] 30.2 pg Normal 27.0-32.0 [facility] Comment on above: Performed By: #### L 500.2500, L100.0100 ####[facility] [address] [place], [address] MCHC (RBC) [Mass/Vol] 33.6 g/dL Normal 32-36 [facility] Comment on above: Performed By: #### L 500.2500, L100.0100 ####[facility] [address] [place], [address] MCV (RBC) [Entitic vol] 90.1 fL Normal 80-94 [facility] Comment on above: Performed By: #### L 500.2500, L100.0100 ####[facility] [address] [place], [address] Monocytes/100 WBC (Bld) 8.3 % Normal 0-10 [facility] Comment on above: Performed By: #### L 500.2500, L100.0100 ####[facility] [address] [place], [address] Neutrophils/100 WBC (Bld) 74.7 % High 47-70 [facility] Comment on above: Performed By: #### L 500.2500, L100.0100 ####[facility] [address] [place], [address] Nucleated RBC (Bld) [#/Vol] 0 10*3/uL Normal 0-5 [facility] Comment on above: Performed By: #### L 500.2500, L100.0100 ####[facility] [address] [place], [address] Platelet mean volume (Bld) [Entitic vol] 10.0 fL Normal 6.2-12.0 [facility] Comment on above: Performed By: #### L 500.2500, L100.0100 ####[facility] [address] [place], [address] Platelets (Bld) [#/Vol] 273 10*3/uL Normal 150-450 [facility] Comment on above: Performed By: #### L 500.2500, L100.0100 ####[facility] [address] [place], [address] RBC (Bld) [#/Vol] 4.73 10*6/uL Normal 4.6-6.2 [facility] Comment on above: Performed By: #### L 500.2500, L100.0100 ####[facility] [address] [place], [address] RDW SD 39.8 fl Normal 35.1-43.9 [facility] Comment on above: Performed By: #### L 500.2500, L100.0100 ####[facility] [address] [place], [address] WBC (Bld) [#/Vol] 7.3 10*3/uL Normal 4.4-11.0 [facility] Comment on above: Performed By: #### L 500.2500, L100.0100 ####[facility] [address] [place], [address] Absolute Neut Normal 2.0-7.7 [facility] Comment on above: Result Comment: Canc elled via OM: Order cancelled - Patient discharged Performed By: #### L 500.2500, L100.0100 ####[facility] [address] [place], [address] HCT Normal 40-54 [facility] Comment on above: Result Comment: Canc elled via OM: Order cancelled - Patient discharged Performed By: #### L 500.2500, L100.0100 ####[facility] [address] [place], [address] HGB Normal 13.0-16.5 [facility] Comment on above: Result Comment: Canc elled via OM: Order cancelled - Patient discharged Performed By: #### L 500.2500, L100.0100 ####[facility] [address] [place], [address] MCH Normal 27.0-32.0 [facility] Comment on above: Result Comment: Canc elled via OM: Order cancelled - Patient discharged Performed By: #### L 500.2500, L100.0100 ####[facility] [address] [place], [address] MCHC Normal 32-36 [facility] Comment on above: Result Comment: Canc elled via OM: Order cancelled - Patient discharged Performed By: #### L 500.2500, L100.0100 ####[facility] [address] [place], [address] MCV Normal 80-94 [facility] Comment on above: Result Comment: Canc elled via OM: Order cancelled - Patient discharged Performed By: #### L 500.2500, L100.0100 ####[facility] [address] [place], [address] NEUT% Normal 47-70 [facility] Comment on above: Result Comment: Canc elled via OM: Order cancelled - Patient discharged Performed By: #### L 500.2500, L100.0100 ####[facility] [address] [place], [address] PLT Normal 150-450 [facility] Comment on above: Result Comment: Canc elled via OM: Order cancelled - Patient discharged Performed By: #### L 500.2500, L100.0100 ####[facility] [address] [place], [address] RBC Normal 4.6-6.2 [facility] Comment on above: Result Comment: Canc elled via OM: Order cancelled - Patient discharged Performed By: #### L 500.2500, L100.0100 ####[facility] [address] [place], [address] RDW CV Normal 11.6-14.6 [facility] Comment on above: Result Comment: Canc elled via OM: Order cancelled - Patient discharged Performed By: #### L 500.2500, L100.0100 ####[facility] [address] [place], [address] RDW SD Normal 35.1-43.9 [facility] Comment on above: Result Comment: Canc elled via OM: Order cancelled - Patient discharged Performed By: #### L 500.2500, L100.0100 ####[facility] [address] [place], [address] WBC Normal 4.4-11.0 [facility] Comment on above: Result Comment: Canc elled via OM: Order cancelled - Patient discharged Performed By: #### L 500.2500, L100.0100 ####[facility] [address] [place], [address] Absolute lymphocyte countOrd ered By: Silvia Son on 10-11-2024 Lymphocytes Auto (Unsp spec) [#/Vol] 0.89 10*3/uL 0.83-4.51 [facility] Absolute neutrophil countOrd ered By: Silvia Son on 08-29-2025 Neutrophils (Bld) [#/Vol] 4.4 10*3/uL 2.0-7.7 [facility] Anion gap in Serum or Plasma Ordered By: Silviakatlin Son on 10-11-2024 Anion gap [Moles/Vol] 12 mmol/L 5-15 [facility] Automated lymphocyte count a s percentage of total leukocytesOrdered By: Silvia Adelaida on 10-11-2024 Lymphocytes/100 WBC Auto (Unsp spec) 13.9 % Low 19-41 [facility] BUN/creatinine ratioOrdered By: Silvia Son on 10-11-2024 Urea nitrogen/Creatinine [Mass ratio] 29.1 mg/mg High 10-20 [facility] Basic Metabolic Profile (BMP )on 10-11-2024 BUN/CRE 29.1 RATIO High - [facility] Comment on above: Performed By: #### L 100.0100, L500.2500 ####[facility] [address] [place], [address] Calcium [Mass/Vol] 8.5 mg/dL Normal 7.6-11.0 [facility] Comment on above: Performed By: #### L 100.0100, L500.2500 ####[facility] [address] [place], [address] Chloride [Moles/Vol] 103 mmol/L Normal 98-108 [facility] Comment on above: Performed By: #### L 100.0100, L500.2500 ####[facility] [address] [place], [address] CO2 [Moles/Vol] 23.8 mmol/L Normal 21.0-32.0 [facility] Comment on above: Performed By: #### L 100.0100, L500.2500 ####[facility] [address] [place], [address] Creatinine [Mass/Vol] 0.98 mg/dL Normal 0.70-1.20 [facility] Comment on above: Performed By: #### L 100.0100, L500.2500 ####[facility] [address] [place], [address] ECRCL 84.22 ml/min Normal 50-250 [facility] Comment on above: Performed By: #### L 100.0100, L500.2500 ####[facility] [address] [place], [address] GAP 12 Normal 5-15 [facility] Comment on above: Performed By: #### L 100.0100, L500.2500 ####[facility] [address] [place], [address] GFR/1.73 sq M.predicted among non-blacks MDRD (S/P/Bld) [Vol rate/Area] 81 mL/min/{1.73_m2} Normal >60 [facility] Comment on above: Result Comment: mL/m in/1.73m2 CKD-EPI Creatinine Equation (2020) Performed By: #### L 100.0100, L500.2500 ####[facility] [address] [place], [address] Glucose [Mass/Vol] 268 mg/dL High 70-99 [facility] Comment on above: Performed By: #### L 100.0100, L500.2500 ####[facility] [address] [place], [address] Potassium [Moles/Vol] 3.6 mmol/L Normal 3.3-5.1 [facility] Comment on above: Performed By: #### L 100.0100, L500.2500 ####[facility] [address] [place], [address] Sodium [Moles/Vol] 139 mmol/L Normal 133-145 [facility] Comment on above: Performed By: #### L 100.0100, L500.2500 ####[facility] [address] [place], [address] Urea nitrogen [Mass/Vol] 29 mg/dL High 4-19 [facility] Comment on above: Performed By: #### L 100.0100, L500.2500 ####[facility] [address] [place], [address] Basophil percentageOrdered B y: Silvia Son on 10-11-2024 Basophils/100 WBC (Bld) 0.9 % 0-1 [facility] Bedside Glucoseon 10-11-2024 FINGERSTICK GLU 199 mg/dL High 74-106 [facility] Comment on above: Result Comment: LEIGH ANN GEMENT OF PATIENT CARE PER NURSING PROTOCOL Performed By: #### L 501.080 ####[facility] [address] [place], [address] FINGERSTICK GLU 219 mg/dL High 74-106 [facility] Comment on above: Result Comment: LEIGH ANN GEMENT OF PATIENT CARE PER NURSING PROTOCOL Performed By: #### L 501.080 ####[facility] [address] [place], [address] FINGERSTICK GLU 242 mg/dL High 74-106 [facility] Comment on above: Result Comment: LEIGH ANN GEMENT OF PATIENT CARE PER NURSING PROTOCOL Performed By: #### L 501.080 ####[facility] [address] [place], [address] Blood manual differential co mment interpretation (narrative result)Ordered By: Silviakatlin De Jesusshelli on 10-11-2024 Manual differential comment Kalin (Bld) [Interp] SCANNED [facility] CBC W/Diff, Automatedon 09-14 Absolute Lymph 0.89 X10 3/uL Normal 0.83-4.51 [facility] Comment on above: Performed By: #### L 100.0100, L500.2500 ####[facility] [address] [place], [address] Absolute Neut 4.4 X10 3/uL Normal 2.0-7.7 [facility] Comment on above: Performed By: #### L 100.0100, L500.2500 ####[facility] [address] [place], [address] Basophils/100 WBC (Bld) 0.9 % Normal 0-1 [facility] Comment on above: Performed By: #### L 100.0100, L500.2500 ####[facility] [address] [place], [address] Eosinophils/100 WBC (Bld) 4.7 % Normal 0-5 [facility] Comment on above: Performed By: #### L 100.0100, L500.2500 ####[facility] [address] [place], [address] Erythrocyte distribution width (RBC) [Ratio] 12.1 % Normal 11.6-14.6 [facility] Comment on above: Performed By: #### L 100.0100, L500.2500 ####[facility] [address] [place], [address] Hematocrit (Bld) [Volume fraction] 40.1 % Normal 40-54 [facility] Comment on above: Performed By: #### L 100.0100, L500.2500 ####[facility] [address] [place], [address] Hemoglobin (Bld) [Mass/Vol] 13.4 g/dL Normal 13.0-16.5 [facility] Comment on above: Performed By: #### L 100.0100, L500.2500 ####[facility] [address] [place], [address] IG% 1.400 High 0.0-0.9 [facility] Comment on above: Result Comment: IG% - Immature Granulocytes (promyelocytes, myelocytes andmetamyelocytes) > 1% indicates that a LEFT SHIFT is Present. Performed By: #### L 100.0100, L500.2500 ####[facility] [address] [place], [address] Lymphocytes/100 WBC (Bld) 13.9 % Low 19-41 [facility] Comment on above: Performed By: #### L 100.0100, L500.2500 ####[facility] [address] [place], [address] MCH (RBC) [Entitic mass] 30.3 pg Normal 27.0-32.0 [facility] Comment on above: Performed By: #### L 100.0100, L500.2500 ####[facility] [address] [place], [address] MCHC (RBC) [Mass/Vol] 33.4 g/dL Normal 32-36 [facility] Comment on above: Performed By: #### L 100.0100, L500.2500 ####[facility] [address] [place], [address] MCV (RBC) [Entitic vol] 90.7 fL Normal 80-94 [facility] Comment on above: Performed By: #### L 100.0100, L500.2500 ####[facility] [address] [place], [address] Monocytes/100 WBC (Bld) 10.3 % High 0-10 [facility] Comment on above: Performed By: #### L 100.0100, L500.2500 ####[facility] [address] [place], [address] Neutrophils/100 WBC (Bld) 68.8 % Normal 47-70 [facility] Comment on above: Performed By: #### L 100.0100, L500.2500 ####[facility] [address] [place], [address] Nucleated RBC (Bld) [#/Vol] 0 10*3/uL Normal 0-5 [facility] Comment on above: Performed By: #### L 100.0100, L500.2500 ####[facility] [address] [place], [address] Platelet mean volume (Bld) [Entitic vol] 10.3 fL Normal 6.2-12.0 [facility] Comment on above: Performed By: #### L 100.0100, L500.2500 ####[facility] [address] [place], [address] Platelets (Bld) [#/Vol] 250 10*3/uL Normal 150-450 [facility] Comment on above: Performed By: #### L 100.0100, L500.2500 ####[facility] [address] [place], [address] RBC (Bld) [#/Vol] 4.42 10*6/uL Low 4.6-6.2 [facility] Comment on above: Performed By: #### L 100.0100, L500.2500 ####[facility] [address] [place], [address] RDW SD 40.7 fl Normal 35.1-43.9 [facility] Comment on above: Performed By: #### L 100.0100, L500.2500 ####[facility] [address] [place], [address] WBC (Bld) [#/Vol] 6.4 10*3/uL Normal 4.4-11.0 [facility] Comment on above: Performed By: #### L 100.0100, L500.2500 ####[facility] [address] [place], [address] Carbon dioxide, total [Moles /volume] in Central venous bloodOrdered By: Silvia Son on 10-11-2024 CO2 [Moles/Vol] 23.8 mmol/L 21.0-32.0 [facility] Chloride assayOrdered By: Kasie Son on 10-11-2024 Chloride [Moles/Vol] 103 mmol/L 98-108 [facility] Electrocardiogram reportOrde red By: Esau Hensley on 10-11-2024 EKG study [facility] [address] [place] [address] 12 Lead EKG 10/10/24 0532 MR#: [id number] Acct: [id number] Name: AMBROCIO JEFFERS Rep #:[id number] : 1950 74 From: Esau Hensley MD Attending Dr: Dr. Ryne Steward DO Status: ADM IN Ordering Dr: Donny Cheng MD Date: 10/10/24 Location: [facility] Sex: M C Admitted: 10/05/24 Test Reason : PRE-OP Blood Pressure : */* mmHG Vent. Rate : 75 BPM Atrial Rate : 75 BPM P-R Int : 202 ms QRS Dur : 108 ms QT Int : 406 ms P-R-T Axes : 21 66 41 degrees QTcB Int : 453 ms Normal sinus rhythm Normal ECG When compared with ECG of 09-Nov-2022 11:50, Vent. rate has increased by 26 bpm Questionable change in QRS axis QT has lengthened Confirmed by ESAU HENSLEY ([id number]), assistant film editor GALO LLANES ([id number]) on 10/11/2024 5:46:04 AM Referred By: SKYLAR Confirmed By: ESAU HENSLEY 10/11/24 0546 Date _ Esau Hensley MD CC: Dr. Donny Cheng MD; Dr. Ryne Steward DO; Dr. Elana Hickman DO ~ Signed [facility] Other Phone: Eosinophil percentageOrdered By: Silvia Son on 10-11-2024 Eosinophils/100 WBC (Bld) 4.7 % 0-5 [facility] Erythrocyte distribution wid th ratioOrdered By: Silvia Son on 10-11-2024 Erythrocyte distribution width (RBC) [Ratio] 12.1 % 11.6-14.6 [facility] Erythrocyte distribution wid th standard deviationOrdered By: Silvia Son on 10-11-2024 Erythrocyte distribution width (RBC) [Ratio] 40.7 fl 35.1-43.9 [facility] Glomerular filtration rate ( GFR) estimation/1.73 sq m using serum, plasma, or whole bOrdered By: Silvia Son on 10-11-2024 GFR/1.73 sq M.predicted among non-blacks MDRD (S/P/Bld) [Vol rate/Area] 81 mL/min/{1.73_m2} >60 [facility] Comment on above: mL/min/1.73m2 CKD-EP I Creatinine Equation (2020) [facility] de[facility]dered By: Ryne Steward on 10-11-2024 Glucose [Mass/Vol] 219 mg/dL High 74-106 [facility] Comment on above: MANAGEMENT OF PATIEN T CARE PER NURSING PROTOCOL Gram Stainon 10-11-2024 GS UNK UNK RIGHT 3RD TOE TISSUE COLLECTED IN OR Gram Stain 2+ Gram positive cocci 3+ Epithelial cells Rare White Blood Cells Normal [facility] Comment on above: Performed By: #### M 100.4001, M300.2000, M600.2200, M100.2000, M600.2000, M100.3000, M300.3000 ####[facility] [address] [place], [place], [address] GS UNK UNK DISTAL PHALANX COLLECTED IN OR Gram Stain Rare Epithelial cells Rare Gram positive cocci 1+ White Blood Cells Normal [facility] Comment on above: Performed By: #### M 300.2000, M600.2200, M100.3000, M100.2000, M100.4001, M600.2000, M300.3000 ####[facility] [address] [place], [place], [address] Hematocrit Auto (Bld) [Volum e fraction]Ordered By: Silvia Son on 10-11-2024 Hematocrit (Bld) [Volume fraction] 40.1 % 40-54 [facility] Hemoglobin measurementOrdere d By: Silvia Son on 10-11-2024 Hemoglobin (Bld) [Mass/Vol] 13.4 g/dL 13.0-16.5 [facility] Immature granulocytes/100 WB C Auto (Bld)Ordered By: Silvia Son on 10-11-2024 Immature granulocytes/100 WBC (Bld) 1.400 % High 0.0-0.9 [facility] Comment on above: IG% - Immature Granu locytes (promyelocytes, myelocytes and metamyelocytes) > 1% indicates that a LEFT SHIFT is Present. MCV (mean corpuscular volume ) determinationOrdered By: Silvia Son on 10-11-2024 MCV (RBC) [Entitic vol] 90.7 fL 80-94 [facility] Mean corpuscular hemoglobin (MCH) determinationOrdered By: Silvia Son on 10-11-2024 MCH (RBC) [Entitic mass] 30.3 pg 27.0-32.0 [facility] Mean corpuscular hemoglobin concentration (MCHC) determinationOrdered By: Silvia Son on 10-11-2024 MCHC (RBC) [Mass/Vol] 33.4 g/dL 32-36 [facility] Mean platelet volume determi nationOrdered By: Silvia Son on 10-11-2024 Platelet mean volume (Bld) [Entitic vol] 10.3 fL 6.2-12.0 [facility] Monocyte percentageOrdered B y: Silvia Son on 10-11-2024 Monocytes/100 WBC (Bld) 10.3 % High 0-10 [facility] Neutrophil percentageOrdered By: Silvia Son on 10-11-2024 Neutrophils/100 WBC (Bld) 68.8 % 47-70 [facility] Nucleated red blood cell per centageOrdered By: Silvia Son on 10-11-2024 Nucleated RBC/100 WBC (Bld) [Ratio] 0 % 0-5 [facility] Platelet countOrdered By: Kasie Son on 10-11-2024 Platelets (Bld) [#/Vol] 250 10*3/uL 150-450 [facility] Platelet morphologyOrdered B y: Silvia Son on 10-11-2024 Platelet morphology finding Nom (Bld) GIANT [facility] Potassium measurement (mass/ volume)Ordered By: Silvia Son on 10-11-2024 Potassium (Unsp spec) [Mass/Vol] 3.6 mmol/L 3.3-5.1 [facility] RBC Auto (Bld) [#/Vol]Ordere d By: Silvia Son on 10-11-2024 RBC (Bld) [#/Vol] 4.42 10*6/uL Low 4.6-6.2 [facility] Serum creatinine measurement (mass/volume)Ordered By: Silvia Son on 10-11-2024 Creatinine [Mass/Vol] 0.98 mg/dL 0.70-1.20 [facility] Serum glucose measurement (m ass/volume)Ordered By: Silvia Son on 10-11-2024 Glucose [Mass/Vol] 268 mg/dL High 70-99 [facility] Serum or plasma calcium alona urement (mass/volume)Ordered By: Silvia Son on 10-11-2024 Calcium [Mass/Vol] 8.5 mg/dL 7.6-11.0 [facility] Serum or plasma urea nitroge n measurement (mass/volume)Ordered By: Silvia Son on 10-11-2024 Urea nitrogen [Mass/Vol] 29 mg/dL High 4-19 [facility] Sodium levelOrdered By: Silvia Son on 10-11-2024 Sodium [Moles/Vol] 139 mmol/L 133-145 [facility] White blood cell (WBC) count Ordered By: Silvia Son on 10-11-2024 WBC (Bld) [#/Vol] 6.4 10*3/uL 4.4-11.0 [facility] 12 Lead EKGon 10-10-2024 12 Lead EKG Normal [facility] Anaerobic cultureOrdered By: Elana Davis on 10-10-2024 Bacteria identified Anaer cx Nom (Unsp spec) No anaerobic bacteria isolated. [facility] Basic Metabolic Profile (BMP )on 10-10-2024 BUN/CRE 25.3 RATIO High 10-20 [facility] Comment on above: Performed By: #### L 500.2500, L100.0100 ####[facility] [address] [place], [address] Calcium [Mass/Vol] 8.6 mg/dL Normal 7.6-11.0 [facility] Comment on above: Performed By: #### L 500.2500, L100.0100 ####[facility] [address] [place], [address] Chloride [Moles/Vol] 103 mmol/L Normal 98-108 [facility] Comment on above: Performed By: #### L 500.2500, L100.0100 ####[facility] [address] [place], [address] CO2 [Moles/Vol] 24.4 mmol/L Normal 21.0-32.0 [facility] Comment on above: Performed By: #### L 500.2500, L100.0100 ####[facility] [address] [place], [address] Creatinine [Mass/Vol] 1.05 mg/dL Normal 0.70-1.20 [facility] Comment on above: Performed By: #### L 500.2500, L100.0100 ####[facility] [address] [place], [address] ECRCL 78.61 ml/min Normal 50-250 [facility] Comment on above: Performed By: #### L 500.2500, L100.0100 ####[facility] [address] [place], [address] GAP 13 Normal 5-15 [facility] Comment on above: Performed By: #### L 500.2500, L100.0100 ####[facility] [address] [place], [address] GFR/1.73 sq M.predicted among non-blacks MDRD (S/P/Bld) [Vol rate/Area] 75 mL/min/{1.73_m2} Normal >60 [facility] Comment on above: Result Comment: mL/m in/1.73m2 CKD-EPI Creatinine Equation (2020) Performed By: #### L 500.2500, L100.0100 ####[facility] [address] [place], [address] Glucose [Mass/Vol] 144 mg/dL High 70-99 [facility] Comment on above: Performed By: #### L 500.2500, L100.0100 ####[facility] [address] [place], [address] Potassium [Moles/Vol] 3.5 mmol/L Normal 3.3-5.1 [facility] Comment on above: Performed By: #### L 500.2500, L100.0100 ####[facility] [address] [place], [address] Sodium [Moles/Vol] 140 mmol/L Normal 133-145 [facility] Comment on above: Performed By: #### L 500.2500, L100.0100 ####[facility] [address] [place], [address] Urea nitrogen [Mass/Vol] 27 mg/dL High 4-19 [facility] Comment on above: Performed By: #### L 500.2500, L100.0100 ####[facility] [address] [place], [address] Bedside Glucoseon 10-10-2024 FINGERSTICK GLU 183 mg/dL High 74-106 [facility] Comment on above: Result Comment: LEIGH ANN GEMENT OF PATIENT CARE PER NURSING PROTOCOL Performed By: #### L 501.080 ####[facility] [address] [place], [address] FINGERSTICK GLU 165 mg/dL High 74-106 [facility] Comment on above: Result Comment: LEIGH ANN GEMENT OF PATIENT CARE PER NURSING PROTOCOL Performed By: #### L 501.080 ####[facility] [address] [place], [address] FINGERSTICK GLU 121 mg/dL High 74-106 [facility] Comment on above: Result Comment: LEIGH ANN RODRIGUES OF PATIENT CARE PER NURSING PROTOCOL Performed By: #### L 501.080 ####[facility] [address] [place], [address] CBC W/Diff, Automatedon 09-14 Absolute Lymph 0.84 X10 3/uL Normal 0.83-4.51 [facility] Comment on above: Performed By: #### L 500.2500, L100.0100 ####[facility] [address] [place], [address] Absolute Neut 5.8 X10 3/uL Normal 2.0-7.7 [facility] Comment on above: Performed By: #### L 500.2500, L100.0100 ####[facility] [address] [place], [address] Basophils/100 WBC (Bld) 0.4 % Normal 0-1 [facility] Comment on above: Performed By: #### L 500.2500, L100.0100 ####[facility] [address] [place], [address] Eosinophils/100 WBC (Bld) 3.8 % Normal 0-5 [facility] Comment on above: Performed By: #### L 500.2500, L100.0100 ####[facility] [address] [place], [address] Erythrocyte distribution width (RBC) [Ratio] 12.4 % Normal 11.6-14.6 [facility] Comment on above: Performed By: #### L 500.2500, L100.0100 ####[facility] [address] [place], [address] Hematocrit (Bld) [Volume fraction] 41.7 % Normal 40-54 [facility] Comment on above: Performed By: #### L 500.2500, L100.0100 ####[facility] [address] [place], [address] Hemoglobin (Bld) [Mass/Vol] 14.2 g/dL Normal 13.0-16.5 [facility] Comment on above: Performed By: #### L 500.2500, L100.0100 ####[facility] [address] [place], [address] IG% 0.800 Normal 0.0-0.9 [facility] Comment on above: Result Comment: IG% - Immature Granulocytes (promyelocytes, myelocytes andmetamyelocytes) > 1% indicates that a LEFT SHIFT is Present. Performed By: #### L 500.2500, L100.0100 ####[facility] [address] [place], [address] Lymphocytes/100 WBC (Bld) 10.7 % Low 19-41 [facility] Comment on above: Performed By: #### L 500.2500, L100.0100 ####[facility] [address] [place], [address] MCH (RBC) [Entitic mass] 30.9 pg Normal 27.0-32.0 [facility] Comment on above: Performed By: #### L 500.2500, L100.0100 ####[facility] [address] [place], [address] MCHC (RBC) [Mass/Vol] 34.1 g/dL Normal 32-36 [facility] Comment on above: Performed By: #### L 500.2500, L100.0100 ####[facility] [address] [place], [address] MCV (RBC) [Entitic vol] 90.7 fL Normal 80-94 [facility] Comment on above: Performed By: #### L 500.2500, L100.0100 ####[facility] [address] [place], [address] Monocytes/100 WBC (Bld) 10.7 % High 0-10 [facility] Comment on above: Performed By: #### L 500.2500, L100.0100 ####[facility] [address] [place], [address] Neutrophils/100 WBC (Bld) 73.6 % High 47-70 [facility] Comment on above: Performed By: #### L 500.2500, L100.0100 ####[facility] [address] [place], [address] Nucleated RBC (Bld) [#/Vol] 0 10*3/uL Normal 0-5 [facility] Comment on above: Performed By: #### L 500.2500, L100.0100 ####[facility] [address] [place], [address] Platelet mean volume (Bld) [Entitic vol] 10.7 fL Normal 6.2-12.0 [facility] Comment on above: Performed By: #### L 500.2500, L100.0100 ####[facility] [address] [place], [address] Platelets (Bld) [#/Vol] 260 10*3/uL Normal 150-450 [facility] Comment on above: Performed By: #### L 500.2500, L100.0100 ####[facility] [address] [place], [address] RBC (Bld) [#/Vol] 4.60 10*6/uL Normal 4.6-6.2 [facility] Comment on above: Performed By: #### L 500.2500, L100.0100 ####[facility] [address] [place], [address] RDW SD 41.0 fl Normal 35.1-43.9 [facility] Comment on above: Performed By: #### L 500.2500, L100.0100 ####[facility] [address] [place], [address] WBC (Bld) [#/Vol] 7.8 10*3/uL Normal 4.4-11.0 [facility] Comment on above: Performed By: #### L 500.2500, L100.0100 ####[facility] [address] [place], [address] Decalcification bone/plaqueo n 10-10-2024 Decalcification bone/plaque Normal [facility] Comment on above: Performed By: #### P DEC ####[facility] [address] [place], [address] Foot 2 Viewson 10-10-2024 Foot 2 Views Normal [facility] Gram stainOrdered By: Cat Davis on 10-10-2024 Microscopic observation Gram stain Nom (Unsp spec) [facility] MR/POSTOP.ANEon 10-10-2024 MR/POSTOP.ANE Normal [facility] MR/TWGJRYOW6uy 10-10-2024 MR/POSTOPAN2 Normal [facility] O.R. Fluoro for C-Kian - O.R. Fluoro for C-Arm Normal [facility] Operative Reporton Operative Report Normal [facility] Routine wound cultureOrdered By: Elana Davis on 10-10-2024 Microbial culture, routine Staphylococcus epidermidis Abnormal [facility] Trough vancomycin levelOrder ed By: Ryne Steward on 10-10-2024 Vancomycin trough [Mass/Vol] 16.5 ug/mL High 5.0-15.0 [facility] Comment on above: Recommended goal tro ugh ranges are generally 10-15 mcg/ml for less severe/complicated infections such as cellulitis or UTI and 15-20 mcg/ml for more severe/complicated infections such as bacteremia/sepsis, osteomyelitis, pneumonia or meningitis. Goal trough ranges should take into account indication, patient-specific factors and organism MARITZA.VANCOMYCIN STANDARED DRUG THERAPY TROUGH LEVEL: 5.0 - 15.0 mg/L VANCOMYCIN HIGH INTENSITY THERAPY TROUGH LEVEL: 15.0 - 20.0 mg/L High Intensity therapy recommended for serious lifethreatening infections include:- Rkezsyovkw-Uhjrmyrwpktq-Sqdfoijtv (Ventilator/Healtcare Associated)-Sepsis PLEASE CONTACT PHARMACY SERVICES (#[id number]) FOR INTERPRETATIONOF RESULTS. Vancomycin, Trough Levelon 0 10-10-2024 VANCO, TROUGH 16.5 ug/mL High 5.0-15.0 [facility] Comment on above: Order Comment: Comme nts: DRAW 30 MIN PRIOR TO [id number] Result Comment: Beau mmended goal trough ranges are generally 10-15 mcg/mlfor less severe/complicated infections such as cellulitisor UTI and 15-20 mcg/ml for more severe/complicatedinfections such as bacteremia/sepsis, osteomyelitis,pneumonia or meningitis. Goal trough ranges should takeinto account indication, patient-specific factors andorganism MARITZA.VANCOMYCIN STANDARED DRUG THERAPY TROUGH LEVEL: 5.0 - 15.0 mg/LVANCOMYCIN HIGH INTENSITY THERAPY TROUGH LEVEL: 15.0 - 20.0 mg/LHigh Intensity therapy recommended for serious lifethreatening infections include:- Cuuufzbjop-Bqjdujnpvzjd-Sxvcqnjde (Ventilator/Healtcare Associated)-SepsisPLEASE CONTACT PHARMACY SERVICES (#[id number]) FOR INTERPRETATIONOF RESULTS. Performed By: #### L 501.8820 ####[facility] [address] [place], [address] Basic Metabolic Profile (BMP )on 10-09-2024 BUN/CRE 26.2 RATIO High 12-02 [facility] Comment on above: Performed By: #### L 100.0100, L500.2500 ####[facility] [address] [place], [address] Calcium [Mass/Vol] 8.6 mg/dL Normal 7.6-11.0 [facility] Comment on above: Performed By: #### L 100.0100, L500.2500 ####[facility] [address] [place], [address] Chloride [Moles/Vol] 106 mmol/L Normal 98-108 [facility] Comment on above: Performed By: #### L 100.0100, L500.2500 ####[facility] [address] [place], [address] CO2 [Moles/Vol] 24.0 mmol/L Normal 21.0-32.0 [facility] Comment on above: Performed By: #### L 100.0100, L500.2500 ####[facility] [address] [place], [address] Creatinine [Mass/Vol] 1.01 mg/dL Normal 0.70-1.20 [facility] Comment on above: Performed By: #### L 100.0100, L500.2500 ####[facility] [address] [place], [address] ECRCL 81.72 ml/min Normal 50-250 [facility] Comment on above: Performed By: #### L 100.0100, L500.2500 ####[facility] [address] [place], [address] GAP 11 Normal 5-15 [facility] Comment on above: Performed By: #### L 100.0100, L500.2500 ####[facility] [address] [place], [address] GFR/1.73 sq M.predicted among non-blacks MDRD (S/P/Bld) [Vol rate/Area] 79 mL/min/{1.73_m2} Normal >60 [facility] Comment on above: Result Comment: mL/m in/1.73m2 CKD-EPI Creatinine Equation (2020) Performed By: #### L 100.0100, L500.2500 ####[facility] [address] [place], [address] Glucose [Mass/Vol] 159 mg/dL High 70-99 [facility] Comment on above: Performed By: #### L 100.0100, L500.2500 ####[facility] [address] [place], [address] Potassium [Moles/Vol] 3.2 mmol/L Low 3.3-5.1 [facility] Comment on above: Performed By: #### L 100.0100, L500.2500 ####[facility] [address] [place], [address] Sodium [Moles/Vol] 141 mmol/L Normal 133-145 [facility] Comment on above: Performed By: #### L 100.0100, L500.2500 ####[facility] [address] [place], [address] Urea nitrogen [Mass/Vol] 27 mg/dL High 4-19 [facility] Comment on above: Performed By: #### L 100.0100, L500.2500 ####[facility] [address] [place], [address] Bedside Glucoseon 10-09-2024 FINGERSTICK GLU 142 mg/dL High 74-106 [facility] Comment on above: Result Comment: LEIGH ANN GEMENT OF PATIENT CARE PER NURSING PROTOCOL Performed By: #### L 501.080 ####[facility] [address] [place], [address] FINGERSTICK GLU 225 mg/dL High 74-106 [facility] Comment on above: Result Comment: LEIGH ANN GEMENT OF PATIENT CARE PER NURSING PROTOCOL Performed By: #### L 501.080 ####[facility] [address] [place], [address] FINGERSTICK GLU 256 mg/dL High 74-106 [facility] Comment on above: Result Comment: LEIGH ANN GEMENT OF PATIENT CARE PER NURSING PROTOCOL Performed By: #### L 501.080 ####[facility] [address] [place], [address] FINGERSTICK GLU 154 mg/dL High 74-106 [facility] Comment on above: Result Comment: LEIGH ANN RODRIGUES OF PATIENT CARE PER NURSING PROTOCOL Performed By: #### L 501.080 ####[facility] [address] [place], [address] CBC W/Diff, Automatedon 09-14 Absolute Lymph 1.25 X10 3/uL Normal 0.83-4.51 [facility] Comment on above: Performed By: #### L 100.0100, L500.2500 ####[facility] [address] [place], [address] Absolute Neut 6.6 X10 3/uL Normal 2.0-7.7 [facility] Comment on above: Performed By: #### L 100.0100, L500.2500 ####[facility] [address] [place], [address] Basophils/100 WBC (Bld) 0.3 % Normal 0-1 [facility] Comment on above: Performed By: #### L 100.0100, L500.2500 ####[facility] [address] [place], [address] Eosinophils/100 WBC (Bld) 2.6 % Normal 0-5 [facility] Comment on above: Performed By: #### L 100.0100, L500.2500 ####[facility] [address] [place], [address] Erythrocyte distribution width (RBC) [Ratio] 12.6 % Normal 11.6-14.6 [facility] Comment on above: Performed By: #### L 100.0100, L500.2500 ####[facility] [address] [place], [address] Hematocrit (Bld) [Volume fraction] 41.3 % Normal 40-54 [facility] Comment on above: Performed By: #### L 100.0100, L500.2500 ####[facility] [address] [place], [address] Hemoglobin (Bld) [Mass/Vol] 14.1 g/dL Normal 13.0-16.5 [facility] Comment on above: Performed By: #### L 100.0100, L500.2500 ####[facility] [address] [place], [address] IG% 0.600 Normal 0.0-0.9 [facility] Comment on above: Result Comment: IG% - Immature Granulocytes (promyelocytes, myelocytes andmetamyelocytes) > 1% indicates that a LEFT SHIFT is Present. Performed By: #### L 100.0100, L500.2500 ####[facility] [address] [place], [address] Lymphocytes/100 WBC (Bld) 13.4 % Low 19-41 [facility] Comment on above: Performed By: #### L 100.0100, L500.2500 ####[facility] [address] [place], [address] MCH (RBC) [Entitic mass] 30.9 pg Normal 27.0-32.0 [facility] Comment on above: Performed By: #### L 100.0100, L500.2500 ####[facility] [address] [place], [address] MCHC (RBC) [Mass/Vol] 34.1 g/dL Normal 32-36 [facility] Comment on above: Performed By: #### L 100.0100, L500.2500 ####[facility] [address] [place], [address] MCV (RBC) [Entitic vol] 90.6 fL Normal 80-94 [facility] Comment on above: Performed By: #### L 100.0100, L500.2500 ####[facility] [address] [place], [address] Monocytes/100 WBC (Bld) 12.0 % High 0-10 [facility] Comment on above: Performed By: #### L 100.0100, L500.2500 ####[facility] [address] [place], [address] Neutrophils/100 WBC (Bld) 71.1 % High 47-70 [facility] Comment on above: Performed By: #### L 100.0100, L500.2500 ####[facility] [address] [place], [address] Nucleated RBC (Bld) [#/Vol] 0 10*3/uL Normal 0-5 [facility] Comment on above: Performed By: #### L 100.0100, L500.2500 ####[facility] [address] [place], [address] Platelet mean volume (Bld) [Entitic vol] 10.4 fL Normal 6.2-12.0 [facility] Comment on above: Performed By: #### L 100.0100, L500.2500 ####[facility] [address] [place], [address] Platelets (Bld) [#/Vol] 233 10*3/uL Normal 150-450 [facility] Comment on above: Performed By: #### L 100.0100, L500.2500 ####[facility] [address] [place], [address] RBC (Bld) [#/Vol] 4.56 10*6/uL Low 4.6-6.2 [facility] Comment on above: Performed By: #### L 100.0100, L500.2500 ####[facility] [address] [place], [address] RDW SD 41.5 fl Normal 35.1-43.9 [facility] Comment on above: Performed By: #### L 100.0100, L500.2500 ####[facility] [address] [place], [address] WBC (Bld) [#/Vol] 9.3 10*3/uL Normal 4.4-11.0 [facility] Comment on above: Performed By: #### L 100.0100, L500.2500 ####[facility] [address] [place], [address] Consultation - Infectious Dx on 10-09-2024 Consultation - Infectious Dx Normal [facility] Venous Duplex US, Unilateral on 10-09-2024 Venous Duplex US, Unilateral Normal [facility] Venous duplex ultrasound rep ortOrdered By: Vito Daley on 10-09-2024 US Vein [facility] [address] [place] [address] Venous Duplex US, Unilateral 10/09/24 1525 MR#: [id number] Acct: [id number] Name: AMBROCIO JEFFERS Rep #:[id number] : 1950 74 From: Vito Daley MD Attending Dr: Dr. Ryne Steward DO Status: ADM IN Ordering Dr: Ryne Stewadr DO Date: Location: [facility] Sex: M C Admitted: 10/05/24 Reason For Study Reason For Study: Right leg pain RIGHT LEFT GSV is normal. CFV is compressible, spontaneous, phasic, competent, CFV is compressible, spontaneous, phasic, competent and demonstrates normal augmentation. and demonstrates normal augmentation. FV is compressible, spontaneous, phasic, competent and demonstrates normal augmentation. POP V is compressible, spontaneous, phasic, competent and demonstrates normal augmentation. T/P Trunk is compressible. PTV is compressible. RT PerV is compressible. Procedure This is a venous duplex using B-mode, color flow and spectral Doppler. Exam performed in department. A preliminary report was called and/or faxed to Claire PADRON. VL/Venous Duplex US, Unilateral Interpretation Summary Deep veins of the right lower extremity are patent and compressible segmentally.There is no evidence of right lower extremity deep vein thrombosis. Valvular competence appears intact within the proximal deep venous system on the right . The right great saphenous vein appears patent and compressible segmentally. The left common femoral vein is patent and compressible . Ordering Physician: Ryne Steward Referring Physician: Elana Hickman Performed By: Kiesha Shah RVT 10/09/242305 Date _ Vito Daley MD CC: Dr. Ryne Steward DO; Dr. Elana Hickman DO ~ Date Dictated: 10/09/241524 Date Transcribed: 10/09/242305 Guideman: Signed [facility] Other Phone: Basic Metabolic Profile (BMP )on 10-08-2024 BUN/CRE 25.5 RATIO High 10-20 [facility] Comment on above: Order Comment: RED W. PREVIOUS SPECIMEN REJECTED DUE TOHEMOLYSIS. 10/08/24827 [facility] Performed By: #### L 500.2500 ####[facility] [address] [place], [place], [address] Calcium [Mass/Vol] 9.0 mg/dL Normal 7.6-11.0 [facility] Comment on above: Order Comment: PUMA W. PREVIOUS SPECIMEN REJECTED DUE TOHEMOLYSIS. 10/08/24827 Komal Alberto. Performed By: #### L 500.2500 ####[facility] [address] [place], [address] Chloride [Moles/Vol] 102 mmol/L Normal 98-108 [facility] Comment on above: Order Comment: REDRA W. PREVIOUS SPECIMEN REJECTED DUE TOHEMOLYSIS. 10/08/24827 Komal Alberto. Performed By: #### L 500.2500 ####[facility] [address] [place], [address] CO2 [Moles/Vol] 24.7 mmol/L Normal 21.0-32.0 [facility] Comment on above: Order Comment: REDRA W. PREVIOUS SPECIMEN REJECTED DUE TOHEMOLYSIS. 10/08/24827 [facility] Performed By: #### L 500.2500 ####[facility] [address] [place], [address] Creatinine [Mass/Vol] 1.07 mg/dL Normal 0.70-1.20 [facility] Comment on above: Order Comment: REDRA W. PREVIOUS SPECIMEN REJECTED DUE TOHEMOLYSIS. 10/08/24827 [facility]. Performed By: #### L 500.2500 ####[facility] [address] [place], [address] ECRCL 77.13 ml/min Normal 50-250 [facility] Comment on above: Order Comment: REDRA W. PREVIOUS SPECIMEN REJECTED DUE TOHEMOLYSIS. 10/08/24 [facility]. Performed By: #### L 500.2500 ####[facility] [address] [place], [address] GAP 15 Normal 5-15 [facility] Comment on above: Order Comment: REDRA W. PREVIOUS SPECIMEN REJECTED DUE TOHEMOLYSIS. 10/08/24827 [facility] Performed By: #### L 500.2500 ####[facility] [address] [place], [address] GFR/1.73 sq M.predicted among non-blacks MDRD (S/P/Bld) [Vol rate/Area] 73 mL/min/{1.73_m2} Normal >60 [facility] Comment on above: Order Comment: REDRA W. PREVIOUS SPECIMEN REJECTED DUE TOHEMOLYSIS. 10/08/24827 Komal Alberto. Result Comment: mL/m in/1.73m2 CKD-EPI Creatinine Equation (2020) Performed By: #### L 500.2500 ####[facility] [address] [place], [address] Glucose [Mass/Vol] 145 mg/dL High 70-99 [facility] Comment on above: Order Comment: REDRA W. PREVIOUS SPECIMEN REJECTED DUE TOHEMOLYSIS. 10/08/24827 [facility]. Performed By: #### L 500.2500 ####[facility] [address] [place], [address] Potassium [Moles/Vol] 3.4 mmol/L Normal 3.3-5.1 [facility] Comment on above: Order Comment: REDRA W. PREVIOUS SPECIMEN REJECTED DUE TOHEMOLYSIS. 10/08/24827 [facility]. Performed By: #### L 500.2500 ####[facility] [address] [place], [address] Sodium [Moles/Vol] 142 mmol/L Normal 133-145 [facility] Comment on above: Order Comment: REDRA W. PREVIOUS SPECIMEN REJECTED DUE TOHEMOLYSIS. 10/08/[address] [place], [place] [address]jeremy Alberto. Performed By: #### L 500.2500 ####[facility] [address] [place], [address] Urea nitrogen [Mass/Vol] 27 mg/dL High - [facility] Comment on above: Order Comment: REDRA W. PREVIOUS SPECIMEN REJECTED DUE TOHEMOLYSIS. 10/08/24 savannah Alberto. Performed By: #### L 500.2500 ####[facility] [address] [place], [address] BUN Normal - [facility] Comment on above: Result Comment: This specimen has been REJECTED due to Laboratory criteria:Hemolyzed.LORRIE CHAVARRIA has been notified of need of recollection.10/08/24824 Komal Alberto Performed By: #### L 500.2500, L100.0100 ####[facility] [address] [place], [address] BUN/CRE Normal 10-20 [facility] Comment on above: Result Comment: This specimen has been REJECTED due to Laboratory criteria:Hemolyzed.LORRIE CHAVARRIA has been notified of need of recollection.10/08/24824 Komal Alberto Performed By: #### L 500.2500, L100.0100 ####[facility] [address] [facility] [address] Calcium Normal 7.6-11.0 [facility] Comment on above: Result Comment: This specimen has been REJECTED due to Laboratory criteria:Hemolyzed.LORRIE CHAVARRIA has been notified of need of recollection.10/08/24824 Komal Alberto Performed By: #### L 500.2500, L100.0100 ####[facility] [address] [facility] [address] CL Normal 98-108 [facility] Comment on above: Result Comment: This specimen has been REJECTED due to Laboratory criteria:Hemolyzed.LORRIE CHAVARRIA has been notified of need of recollection.10/08/24824 Komal Alberto Performed By: #### L 500.2500, L100.0100 ####[facility] [address] [facility] [address] CO2 Normal 21.0-32.0 [facility] Comment on above: Result Comment: This specimen has been REJECTED due to Laboratory criteria:Hemolyzed.LORRIE CHAVARRIA has been notified of need of recollection.10/08/24824 Komal Alberto Performed By: #### L 500.2500, L100.0100 ####[facility] [address] [place], [address] CREAT,SERUM Normal 0.70-1.20 [facility] Comment on above: Result Comment: This specimen has been REJECTED due to Laboratory criteria:Hemolyzed.LORRIE CHAVARRIA has been notified of need of recollection.10/08/24824 Zepporah Alberto Performed By: #### L 500.2500, L100.0100 ####[facility] [address] [facility] [address] eGFR Normal >60 [facility] Comment on above: Result Comment: This specimen has been REJECTED due to Laboratory criteria:Hemolyzed.LORRIE CHAVARRIA has been notified of need of recollection.10/08/24824 Zetonyorah Alberto Performed By: #### L 500.2500, L100.0100 ####[facility] [address] [facility] [address] GAP Normal 5-15 [facility] Comment on above: Result Comment: This specimen has been REJECTED due to Laboratory criteria:Hemolyzed.LORRIE CHAVARRIA has been notified of need of recollection.10/08/24824 Zetonyorah Alberto Performed By: #### L 500.2500, L100.0100 ####[facility] [address] [place], [address] GLU Normal 70-99 [facility] Comment on above: Result Comment: This specimen has been REJECTED due to Laboratory criteria:Hemolyzed.LORRIE CHAVARRIA has been notified of need of recollection.10/08/24824 Zepporah Alberto Performed By: #### L 500.2500, L100.0100 ####[facility] [address] [place], [address] Potassium Normal 3.3-5.1 [facility] Comment on above: Result Comment: This specimen has been REJECTED due to Laboratory criteria:Hemolyzed.LORRIE CHAVARRIA has been notified of need of recollection.10/08/24824 Zepporah Alberto Performed By: #### L 500.2500, L100.0100 ####[facility] [address] [place], [address] Basic Metabolic Profile (BMP) Normal 133-145 [facility] Comment on above: Result Comment: This specimen has been REJECTED due to Laboratory criteria:Hemolyzed.LORRIE CHAVARRIA has been notified of need of recollection.10/08/24 0825 Komal Alberto Performed By: #### L 500.2500, L100.0100 ####[facility] [address] [place], [address] Bedside Glucoseon 10-08-2024 FINGERSTICK GLU 219 mg/dL High 74-106 [facility] Comment on above: Result Comment: LEIGH ANN GEMENT OF PATIENT CARE PER NURSING PROTOCOL Performed By: #### L 501.080 ####[facility] [address] [place], [address] FINGERSTICK GLU 215 mg/dL High 74-106 [facility] Comment on above: Result Comment: LEIGH ANN GEMENT OF PATIENT CARE PER NURSING PROTOCOL Performed By: #### L 501.080 ####[facility] [address] [place], [address] FINGERSTICK GLU 314 mg/dL High 74-106 [facility] Comment on above: Result Comment: LEIGH ANN GEMENT OF PATIENT CARE PER NURSING PROTOCOL Performed By: #### L 501.080 ####[facility] [address] [place], [address] FINGERSTICK GLU 136 mg/dL High 74-106 [facility] Comment on above: Result Comment: LEIGH ANN GEMENT OF PATIENT CARE PER NURSING PROTOCOL Performed By: #### L 501.080 ####[facility] [address] [place], [address] CBC W/Diff, Automatedon - Absolute Lymph 0.90 X10 3/uL Normal 0.83-4.51 [facility] Comment on above: Performed By: #### L 500.2500, L100.0100 ####[facility] [address] [place], [address] Absolute Neut 7.8 X10 3/uL High 2.0-7.7 [facility] Comment on above: Performed By: #### L 500.2500, L100.0100 ####[facility] [address] [place], [address] Basophils/100 WBC (Bld) 0.4 % Normal 0-1 [facility] Comment on above: Performed By: #### L 500.2500, L100.0100 ####[facility] [address] [place], [address] Eosinophils/100 WBC (Bld) 1.6 % Normal 0-5 [facility] Comment on above: Performed By: #### L 500.2500, L100.0100 ####[facility] [address] [place], [address] Erythrocyte distribution width (RBC) [Ratio] 12.4 % Normal 11.6-14.6 [facility] Comment on above: Performed By: #### L 500.2500, L100.0100 ####[facility] [address] [place], [address] Hematocrit (Bld) [Volume fraction] 43.8 % Normal 40-54 [facility] Comment on above: Performed By: #### L 500.2500, L100.0100 ####[facility] [address] [place], [address] Hemoglobin (Bld) [Mass/Vol] 15.1 g/dL Normal 13.0-16.5 [facility] Comment on above: Performed By: #### L 500.2500, L100.0100 ####[facility] [address] [place], [address] IG% 0.600 Normal 0.0-0.9 [facility] Comment on above: Result Comment: IG% - Immature Granulocytes (promyelocytes, myelocytes andmetamyelocytes) > 1% indicates that a LEFT SHIFT is Present. Performed By: #### L 500.2500, L100.0100 ####[facility] [address] [place], [address] Lymphocytes/100 WBC (Bld) 9.0 % Low 19-41 [facility] Comment on above: Performed By: #### L 500.2500, L100.0100 ####[facility] [address] [place], [address] MCH (RBC) [Entitic mass] 31.3 pg Normal 27.0-32.0 [facility] Comment on above: Performed By: #### L 500.2500, L100.0100 ####[facility] [address] [place], [address] MCHC (RBC) [Mass/Vol] 34.5 g/dL Normal 32-36 [facility] Comment on above: Performed By: #### L 500.2500, L100.0100 ####[facility] [address] [place], [address] MCV (RBC) [Entitic vol] 90.7 fL Normal 80-94 [facility] Comment on above: Performed By: #### L 500.2500, L100.0100 ####[facility] [address] [place], [address] Monocytes/100 WBC (Bld) 10.9 % High 0-10 [facility] Comment on above: Performed By: #### L 500.2500, L100.0100 ####[facility] [address] [place], [address] Neutrophils/100 WBC (Bld) 77.5 % High 47-70 [facility] Comment on above: Performed By: #### L 500.2500, L100.0100 ####[facility] [address] [place], [address] Nucleated RBC (Bld) [#/Vol] 0 10*3/uL Normal 0-5 [facility] Comment on above: Performed By: #### L 500.2500, L100.0100 ####[facility] [address] [place], [address] Platelet mean volume (Bld) [Entitic vol] 10.7 fL Normal 6.2-12.0 [facility] Comment on above: Performed By: #### L 500.2500, L100.0100 ####[facility] [address] [place], [address] Platelets (Bld) [#/Vol] 209 10*3/uL Normal 150-450 [facility] Comment on above: Performed By: #### L 500.2500, L100.0100 ####[facility] [address] [place], [address] RBC (Bld) [#/Vol] 4.83 10*6/uL Normal 4.6-6.2 [facility] Comment on above: Performed By: #### L 500.2500, L100.0100 ####[facility] [address] [place], [address] RDW SD 41.5 fl Normal 35.1-43.9 [facility] Comment on above: Performed By: #### L 500.2500, L100.0100 ####[facility] [address] [place], [address] WBC (Bld) [#/Vol] 10.0 10*3/uL Normal 4.4-11.0 [facility] Comment on above: Performed By: #### L 500.2500, L100.0100 ####[facility] [address] [place], [address] Magnetic resonance imaging r eportOrdered By: Naveen Winkler on 10-08-2024 Study report [facility] Imaging Services [address] [place] [address] Lower Ext No Joint W/WO Cont MR#: [id number] Acct: [id number] Name: AMBROCIO JEFFERS Rep #: [id number] : 1950 M 74 From: Roberta Winkler MD PCP: Dr. Elana Hickman DO Status: ADM IN Study:Lower Ext No Joint W/WO Cont Date of Ex am: 10/07/24 Exam# [id number] Ordering Dr: Ryne Steward DO PROCEDURE: LOWER EXT NO JOINT W/WO CONT 10/07/2024 REASON FOR EXAM: RIGHT 3RD TOE INFECTION TECHNIQUE: T1, T2, postcontrast T1 fat-sat MRI right foot with and without contrast. Motion is noted. 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 There is abnormal marrow signal in the remainder of the distal phalanx of the 3rd digit with low T1, high T2, high postcontrast marrow signal, sagittal contrast image 20/32. There is normal marrow signal throughout the remainder of the bony structures of the forefoot. Sesamoids are aligned. The flexor and extensor tendons appear intact. The Lisfranc articulation is not included. There is circumferential subcutaneous edema with no organized or drainable collection. 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 There is abnormal marrow signal in the remainder of the distal phalanx of the 3rd digit with low T1, high T2, high postcontrast marrow signal, sagittal contrast image 20/32. This finding meets the criteria for osteomyelitis. There is circumferential subcutaneous edema with no organized or drainable collection. The differential includes cellulitis and venous stasis. Reading Location: [facility] CC: Dr. Ryne Steward DO; Dr. Elana Hickman DO ~ Guideman: Signed [facility] Vancomycin, Trough Levelon 0 10-08-2024 VANCO, TROUGH 15.4 ug/mL High 5.0-15.0 [facility] Comment on above: Order Comment: Comme nts: Trough to be drawn 30 mins prior to scheduled [id number] Result Comment: Beau mmended goal trough ranges are generally 10-15 mcg/mlfor less severe/complicated infections such as cellulitisor UTI and 15-20 mcg/ml for more severe/complicatedinfections such as bacteremia/sepsis, osteomyelitis,pneumonia or meningitis. Goal trough ranges should takeinto account indication, patient-specific factors andorganism MARITZA.VANCOMYCIN STANDARED DRUG THERAPY TROUGH LEVEL: 5.0 - 15.0 mg/LVANCOMYCIN HIGH INTENSITY THERAPY TROUGH LEVEL: 15.0 - 20.0 mg/LHigh Intensity therapy recommended for serious lifethreatening infections include:- Shystxhtue-Nacyfpzuavlx-Ebowodukz (Ventilator/Healtcare Associated)-SepsisPLEASE CONTACT PHARMACY SERVICES (#2515) FOR INTERPRETATIONOF RESULTS. Performed By: #### L 501.8820 ####[facility] [address] [place], [address] Basic Metabolic Profile (BMP )on 10-07-2024 BUN/CRE 24.6 RATIO High - [facility] Comment on above: Performed By: #### L 500.2500, L100.0100 ####[facility] [address] [place], [address] Calcium [Mass/Vol] 9.0 mg/dL Normal 7.6-11.0 [facility] Comment on above: Performed By: #### L 500.2500, L100.0100 ####[facility] [address] [place], [address] Chloride [Moles/Vol] 103 mmol/L Normal 98-108 [facility] Comment on above: Performed By: #### L 500.2500, L100.0100 ####[facility] [address] [place], [address] CO2 [Moles/Vol] 22.0 mmol/L Normal 21.0-32.0 [facility] Comment on above: Performed By: #### L 500.2500, L100.0100 ####[facility] [address] [place], [address] Creatinine [Mass/Vol] 1.12 mg/dL Normal 0.70-1.20 [facility] Comment on above: Performed By: #### L 500.2500, L100.0100 ####[facility] [address] [place], [address] ECRCL 73.69 ml/min Normal 50-250 [facility] Comment on above: Performed By: #### L 500.2500, L100.0100 ####[facility] [address] [place], [address] GAP 14 Normal 5-15 [facility] Comment on above: Performed By: #### L 500.2500, L100.0100 ####[facility] [address] [place], [address] GFR/1.73 sq M.predicted among non-blacks MDRD (S/P/Bld) [Vol rate/Area] 69 mL/min/{1.73_m2} Normal >60 [facility] Comment on above: Result Comment: mL/m in/1.73m2 CKD-EPI Creatinine Equation (2020) Performed By: #### L 500.2500, L100.0100 ####[facility] [address] [place], [address] Glucose [Mass/Vol] 102 mg/dL High 70-99 [facility] Comment on above: Performed By: #### L 500.2500, L100.0100 ####[facility] [address] [place], [address] Potassium [Moles/Vol] 3.4 mmol/L Normal 3.3-5.1 [facility] Comment on above: Performed By: #### L 500.2500, L100.0100 ####[facility] [address] [place], [address] Sodium [Moles/Vol] 140 mmol/L Normal 133-145 [facility] Comment on above: Performed By: #### L 500.2500, L100.0100 ####[facility] [address] [place], [address] Urea nitrogen [Mass/Vol] 28 mg/dL High 4-19 [facility] Comment on above: Performed By: #### L 500.2500, L100.0100 ####[facility] [address] [place], [address] Bedside Glucoseon 10-07-2024 FINGERSTICK GLU 232 mg/dL High 74-106 [facility] Comment on above: Result Comment: LEIGH ANN GEMENT OF PATIENT CARE PER NURSING PROTOCOL Performed By: #### L 501.080 ####[facility] [address] [place], [address] FINGERSTICK GLU 193 mg/dL High 74-106 [facility] Comment on above: Result Comment: LEIGH ANN GEMENT OF PATIENT CARE PER NURSING PROTOCOL Performed By: #### L 501.080 ####[facility] [address] [place], [address] FINGERSTICK GLU 173 mg/dL High 74-106 [facility] Comment on above: Result Comment: LEIGH ANN GEMENT OF PATIENT CARE PER NURSING PROTOCOL Performed By: #### L 501.080 ####[facility] [address] [place], [address] CBC W/Diff, Automatedon 08- Absolute Lymph 0.90 X10 3/uL Normal 0.83-4.51 [facility] Comment on above: Performed By: #### L 500.2500, L100.0100 ####[facility] [address] [place], [address] Absolute Neut 6.3 X10 3/uL Normal 2.0-7.7 [facility] Comment on above: Performed By: #### L 500.2500, L100.0100 ####[facility] [address] [place], [address] Basophils/100 WBC (Bld) 0.7 % Normal 0-1 [facility] Comment on above: Performed By: #### L 500.2500, L100.0100 ####[facility] [address] [place], [address] Eosinophils/100 WBC (Bld) 2.3 % Normal 0-5 [facility] Comment on above: Performed By: #### L 500.2500, L100.0100 ####[facility] [address] [place], [address] Erythrocyte distribution width (RBC) [Ratio] 12.5 % Normal 11.6-14.6 [facility] Comment on above: Performed By: #### L 500.2500, L100.0100 ####[facility] [address] [place], [address] Hematocrit (Bld) [Volume fraction] 47.2 % Normal 40-54 [facility] Comment on above: Performed By: #### L 500.2500, L100.0100 ####[facility] [address] [place], [address] Hemoglobin (Bld) [Mass/Vol] 15.7 g/dL Normal 13.0-16.5 [facility] Comment on above: Performed By: #### L 500.2500, L100.0100 ####[facility] [address] [place], [address] IG% 0.500 Normal 0.0-0.9 [facility] Comment on above: Result Comment: IG% - Immature Granulocytes (promyelocytes, myelocytes andmetamyelocytes) > 1% indicates that a LEFT SHIFT is Present. Performed By: #### L 500.2500, L100.0100 ####[facility] [address] [place], [address] Lymphocytes/100 WBC (Bld) 10.5 % Low 19-41 [facility] Comment on above: Performed By: #### L 500.2500, L100.0100 ####[facility] [address] [place], [address] MCH (RBC) [Entitic mass] 30.9 pg Normal 27.0-32.0 [facility] Comment on above: Performed By: #### L 500.2500, L100.0100 ####[facility] [address] [place], [address] MCHC (RBC) [Mass/Vol] 33.3 g/dL Normal 32-36 [facility] Comment on above: Performed By: #### L 500.2500, L100.0100 ####[facility] [address] [place], [address] MCV (RBC) [Entitic vol] 92.9 fL Normal 80-94 [facility] Comment on above: Performed By: #### L 500.2500, L100.0100 ####[facility] [address] [place], [address] Monocytes/100 WBC (Bld) 12.6 % High 0-10 [facility] Comment on above: Performed By: #### L 500.2500, L100.0100 ####[facility] [address] [place], [address] Neutrophils/100 WBC (Bld) 73.4 % High 47-70 [facility] Comment on above: Performed By: #### L 500.2500, L100.0100 ####[facility] [address] [place], [address] Nucleated RBC (Bld) [#/Vol] 0 10*3/uL Normal 0-5 [facility] Comment on above: Performed By: #### L 500.2500, L100.0100 ####[facility] [address] [place], [address] Platelet mean volume (Bld) [Entitic vol] 10.9 fL Normal 6.2-12.0 [facility] Comment on above: Performed By: #### L 500.2500, L100.0100 ####[facility] [address] [place], [address] Platelets (Bld) [#/Vol] 179 10*3/uL Normal 150-450 [facility] Comment on above: Performed By: #### L 500.2500, L100.0100 ####[facility] [address] [place], [address] RBC (Bld) [#/Vol] 5.08 10*6/uL Normal 4.6-6.2 [facility] Comment on above: Performed By: #### L 500.2500, L100.0100 ####[facility] [address] [place], [address] RDW SD 42.7 fl Normal 35.1-43.9 [facility] Comment on above: Performed By: #### L 500.2500, L100.0100 ####[facility] [address] [place], [address] WBC (Bld) [#/Vol] 8.6 10*3/uL Normal 4.4-11.0 [facility] Comment on above: Performed By: #### L 500.2500, L100.0100 ####[facility] [address] [place], [address] Lower Ext No Joint W/WO Cont on 10-07-2024 Lower Ext No Joint W/WO Cont Normal [facility] Vancomycin, Trough Levelon 0 10-07-2024 VANCO, TROUGH 12.0 ug/mL Normal 5.0-15.0 [facility] Comment on above: Order Comment: 0000 Result Comment: Beau mmended goal trough ranges are generally 10-15 mcg/mlfor less severe/complicated infections such as cellulitisor UTI and 15-20 mcg/ml for more severe/complicatedinfections such as bacteremia/sepsis, osteomyelitis,pneumonia or meningitis. Goal trough ranges should takeinto account indication, patient-specific factors andorganism MARITZA.VANCOMYCIN STANDARED DRUG THERAPY TROUGH LEVEL: 5.0 - 15.0 mg/LVANCOMYCIN HIGH INTENSITY THERAPY TROUGH LEVEL: 15.0 - 20.0 mg/LHigh Intensity therapy recommended for serious lifethreatening infections include:- Ykyoeubixd-Feiifdaljsxw-Akcipbhyj (Ventilator/Healtcare Associated)-SepsisPLEASE CONTACT PHARMACY SERVICES (#1417) FOR INTERPRETATIONOF RESULTS. Performed By: #### L 501.8820 ####[facility] [address] [place], [address] Basic Metabolic Profile (BMP )on 10-06-2024 BUN/CRE 24.6 RATIO High - [facility] Comment on above: Performed By: #### L 500.2500, L100.0500 ####[facility] [address] [place], [address] Calcium [Mass/Vol] 8.9 mg/dL Normal 7.6-11.0 [facility] Comment on above: Performed By: #### L 500.2500, L100.0500 ####[facility] [address] [place], [address] Chloride [Moles/Vol] 102 mmol/L Normal 98-108 [facility] Comment on above: Performed By: #### L 500.2500, L100.0500 ####[facility] [address] [place], [address] CO2 [Moles/Vol] 20.6 mmol/L Low 21.0-32.0 [facility] Comment on above: Performed By: #### L 500.2500, L100.0500 ####[facility] [address] [place], [address] Creatinine [Mass/Vol] 1.17 mg/dL Normal 0.70-1.20 [facility] Comment on above: Performed By: #### L 500.2500, L100.0500 ####[facility] [address] [place], [address] ECRCL 70.54 ml/min Normal 50-250 [facility] Comment on above: Performed By: #### L 500.2500, L100.0500 ####[facility] [address] [place], [address] GAP 16 High 5-15 [facility] Comment on above: Performed By: #### L 500.2500, L100.0500 ####[facility] [address] [place], [address] GFR/1.73 sq M.predicted among non-blacks MDRD (S/P/Bld) [Vol rate/Area] 66 mL/min/{1.73_m2} Normal >60 [facility] Comment on above: Result Comment: mL/m in/1.73m2 CKD-EPI Creatinine Equation (2020) Performed By: #### L 500.2500, L100.0500 ####[facility] [address] [place], [address] Glucose [Mass/Vol] 54 mg/dL Low 70-99 [facility] Comment on above: Performed By: #### L 500.2500, L100.0500 ####[facility] [address] [place], [address] Potassium [Moles/Vol] 4.0 mmol/L Normal 3.3-5.1 [facility] Comment on above: Result Comment: Hemo lysis present, Results??could be affected.?? Performed By: #### L 500.2500, L100.0500 ####[facility] [address] [place], [address] Sodium [Moles/Vol] 138 mmol/L Normal 133-145 [facility] Comment on above: Performed By: #### L 500.2500, L100.0500 ####[facility] [address] [place], [address] Urea nitrogen [Mass/Vol] 29 mg/dL High 4-19 [facility] Comment on above: Performed By: #### L 500.2500, L100.0500 ####[facility] [address] [place], [address] Bedside Glucoseon 10-06-2024 FINGERSTICK GLU 229 mg/dL High 74-106 [facility] Comment on above: Result Comment: LEIGH ANN GEMENT OF PATIENT CARE PER NURSING PROTOCOL Performed By: #### L 501.080 ####[facility] [address] [place], [address] FINGERSTICK GLU 221 mg/dL High 74-106 [facility] Comment on above: Result Comment: LEIGH ANN GEMENT OF PATIENT CARE PER NURSING PROTOCOL Performed By: #### L 501.080 ####[facility] [address] [place], [address] FINGERSTICK GLU 193 mg/dL High 74-106 [facility] Comment on above: Result Comment: LEIGH ANN GEMENT OF PATIENT CARE PER NURSING PROTOCOL Performed By: #### L 501.080 ####[facility] [address] [place], [address] FINGERSTICK GLU 73 mg/dL Low 74-106 [facility] Comment on above: Result Comment: LEIGH ANN GEMENT OF PATIENT CARE PER NURSING PROTOCOL Performed By: #### L 501.080 ####[facility] [address] [place], [address] CBC-Complete Blood Cnt No Ruby shook 10-06-2024 Erythrocyte distribution width (RBC) [Ratio] 12.8 % Normal 11.6-14.6 [facility] Comment on above: Performed By: #### L 500.2500, L100.0500 ####[facility] [address] [place], [address] Hematocrit (Bld) [Volume fraction] 46.7 % Normal 40-54 [facility] Comment on above: Performed By: #### L 500.2500, L100.0500 ####[facility] [address] [place], [address] Hemoglobin (Bld) [Mass/Vol] 14.9 g/dL Normal 13.0-16.5 [facility] Comment on above: Performed By: #### L 500.2500, L100.0500 ####[facility] [address] [place], [address] MCH (RBC) [Entitic mass] 30.8 pg Normal 27.0-32.0 [facility] Comment on above: Performed By: #### L 500.2500, L100.0500 ####[facility] [address] [place], [address] MCHC (RBC) [Mass/Vol] 31.9 g/dL Low 32-36 [facility] Comment on above: Performed By: #### L 500.2500, L100.0500 ####[facility] [address] [place], [address] MCV (RBC) [Entitic vol] 96.5 fL High 80-94 [facility] Comment on above: Performed By: #### L 500.2500, L100.0500 ####[facility] [address] [place], [address] Platelet mean volume (Bld) [Entitic vol] 11.6 fL Normal 6.2-12.0 [facility] Comment on above: Performed By: #### L 500.2500, L100.0500 ####[facility] [address] [place], [address] Platelets (Bld) [#/Vol] 166 10*3/uL Normal 150-450 [facility] Comment on above: Performed By: #### L 500.2500, L100.0500 ####[facility] [address] [place], [address] RBC (Bld) [#/Vol] 4.84 10*6/uL Normal 4.6-6.2 [facility] Comment on above: Performed By: #### L 500.2500, L100.0500 ####[facility] [address] [place], [address] RDW SD 46.0 fl High 35.1-43.9 [facility] Comment on above: Performed By: #### L 500.2500, L100.0500 ####[facility] [address] [place], [address] WBC (Bld) [#/Vol] 9.8 10*3/uL Normal 4.4-11.0 [facility] Comment on above: Performed By: #### L 500.2500, L100.0500 ####[facility] [address] [place], [address] Shoulder min 2 Viewson 10-06 Shoulder min 2 Views Normal [facility] Ankle min 3 Viewson 10-06-19 25 Ankle min 3 Views Normal [facility] Basic Metabolic Profile (BMP )on 10-05-2024 BUN/CRE 22.8 RATIO High 10-20 [facility] Comment on above: Performed By: #### L 501.6710, L101.9900, L100.0100, L500.2500 ####[facility] [address] [place], [address] Calcium [Mass/Vol] 9.4 mg/dL Normal 7.6-11.0 [facility] Comment on above: Performed By: #### L 501.6710, L101.9900, L100.0100, L500.2500 ####[facility] [address] [place], [address] Chloride [Moles/Vol] 96 mmol/L Low 98-108 [facility] Comment on above: Performed By: #### L 501.6710, L101.9900, L100.0100, L500.2500 ####[facility] [address] [place], [address] CO2 [Moles/Vol] 25.8 mmol/L Normal 21.0-32.0 [facility] Comment on above: Performed By: #### L 501.6710, L101.9900, L100.0100, L500.2500 ####[facility] [address] [place], [address] Creatinine [Mass/Vol] 1.57 mg/dL High 0.70-1.20 [facility] Comment on above: Performed By: #### L 501.6710, L101.9900, L100.0100, L500.2500 ####[facility] [address] [place], [address] ECRCL 53.99 ml/min Normal 50-250 [facility] Comment on above: Performed By: #### L 501.6710, L101.9900, L100.0100, L500.2500 ####[facility] [address] [place], [address] GAP 16 High 5-15 [facility] Comment on above: Performed By: #### L 501.6710, L101.9900, L100.0100, L500.2500 ####[facility] [address] [place], [address] GFR/1.73 sq M.predicted among non-blacks MDRD (S/P/Bld) [Vol rate/Area] 46 mL/min/{1.73_m2} Low >60 [facility] Comment on above: Result Comment: mL/m in/1.73m2 CKD-EPI Creatinine Equation (2020) Performed By: #### L 501.6710, L101.9900, L100.0100, L500.2500 ####[facility] [address] [place], [address] Glucose [Mass/Vol] 235 mg/dL High 70-99 [facility] Comment on above: Performed By: #### L 501.6710, L101.9900, L100.0100, L500.2500 ####[facility] [address] [place], [address] Potassium [Moles/Vol] 3.7 mmol/L Normal 3.3-5.1 [facility] Comment on above: Performed By: #### L 501.6710, L101.9900, L100.0100, L500.2500 ####[facility] [address] [place], [address] Sodium [Moles/Vol] 137 mmol/L Normal 133-145 [facility] Comment on above: Performed By: #### L 501.6710, L101.9900, L100.0100, L500.2500 ####[facility] [address] [place], [address] Urea nitrogen [Mass/Vol] 36 mg/dL High 4-19 [facility] Comment on above: Performed By: #### L 501.6710, L101.9900, L100.0100, L500.2500 ####[facility] [address] [place], [address] Bedside Glucoseon 10-05-2024 FINGERSTICK GLU 180 mg/dL High 74-106 [facility] Comment on above: Result Comment: LEIGH ANN RODRIGUES OF PATIENT CARE PER NURSING PROTOCOL Performed By: #### L 501.080 ####[facility] [address] [place], [address] CBC W/Diff, Automatedon 08-2 -2024 Absolute Lymph 0.71 X10 3/uL Low 0.83-4.51 [facility] Comment on above: Performed By: #### L 501.6710, L101.9900, L100.0100, L500.2500 ####[facility] [address] [place], [address] Absolute Neut 8.1 X10 3/uL High 2.0-7.7 [facility] Comment on above: Performed By: #### L 501.6710, L101.9900, L100.0100, L500.2500 ####[facility] [address] [place], [address] Basophils/100 WBC (Bld) 0.2 % Normal 0-1 [facility] Comment on above: Performed By: #### L 501.6710, L101.9900, L100.0100, L500.2500 ####[facility] [address] [place], [address] Eosinophils/100 WBC (Bld) 0.7 % Normal 0-5 [facility] Comment on above: Performed By: #### L 501.6710, L101.9900, L100.0100, L500.2500 ####[facility] [address] [place], [address] Erythrocyte distribution width (RBC) [Ratio] 12.7 % Normal 11.6-14.6 [facility] Comment on above: Performed By: #### L 501.6710, L101.9900, L100.0100, L500.2500 ####[facility] [address] [place], [address] Hematocrit (Bld) [Volume fraction] 45.3 % Normal 40-54 [facility] Comment on above: Performed By: #### L 501.6710, L101.9900, L100.0100, L500.2500 ####[facility] [address] [place], [address] Hemoglobin (Bld) [Mass/Vol] 15.5 g/dL Normal 13.0-16.5 [facility] Comment on above: Performed By: #### L 501.6710, L101.9900, L100.0100, L500.2500 ####[facility] [address] [place], [address] IG% 0.600 Normal 0.0-0.9 [facility] Comment on above: Result Comment: IG% - Immature Granulocytes (promyelocytes, myelocytes andmetamyelocytes) > 1% indicates that a LEFT SHIFT is Present. Performed By: #### L 501.6710, L101.9900, L100.0100, L500.2500 ####[facility] [address] [place], [address] Lymphocytes/100 WBC (Bld) 7.1 % Low 19-41 [facility] Comment on above: Performed By: #### L 501.6710, L101.9900, L100.0100, L500.2500 ####[facility] [address] [place], [address] MCH (RBC) [Entitic mass] 31.2 pg Normal 27.0-32.0 [facility] Comment on above: Performed By: #### L 501.6710, L101.9900, L100.0100, L500.2500 ####[facility] [address] [place], [address] MCHC (RBC) [Mass/Vol] 34.2 g/dL Normal 32-36 [facility] Comment on above: Performed By: #### L 501.6710, L101.9900, L100.0100, L500.2500 ####[facility] [address] [place], [address] MCV (RBC) [Entitic vol] 91.1 fL Normal 80-94 [facility] Comment on above: Performed By: #### L 501.6710, L101.9900, L100.0100, L500.2500 ####[facility] [address] [place], [address] Monocytes/100 WBC (Bld) 9.6 % Normal 0-10 [facility] Comment on above: Performed By: #### L 501.6710, L101.9900, L100.0100, L500.2500 ####[facility] [address] [place], [address] Neutrophils/100 WBC (Bld) 81.8 % High 47-70 [facility] Comment on above: Performed By: #### L 501.6710, L101.9900, L100.0100, L500.2500 ####[facility] [address] [place], [address] Nucleated RBC (Bld) [#/Vol] 0 10*3/uL Normal 0-5 [facility] Comment on above: Performed By: #### L 501.6710, L101.9900, L100.0100, L500.2500 ####[facility] [address] [place], [address] Platelet mean volume (Bld) [Entitic vol] 11.2 fL Normal 6.2-12.0 [facility] Comment on above: Performed By: #### L 501.6710, L101.9900, L100.0100, L500.2500 ####[facility] [address] [place], [address] Platelets (Bld) [#/Vol] 170 10*3/uL Normal 150-450 [facility] Comment on above: Performed By: #### L 501.6710, L101.9900, L100.0100, L500.2500 ####[facility] [address] [place], [address] RBC (Bld) [#/Vol] 4.97 10*6/uL Normal 4.6-6.2 [facility] Comment on above: Performed By: #### L 501.6710, L101.9900, L100.0100, L500.2500 ####[facility] [address] [place], [address] RDW SD 42.4 fl Normal 35.1-43.9 [facility] Comment on above: Performed By: #### L 501.6710, L101.9900, L100.0100, L500.2500 ####[facility] [address] [place], [address] WBC (Bld) [#/Vol] 10.0 10*3/uL Normal 4.4-11.0 [facility] Comment on above: Performed By: #### L 501.6710, L101.9900, L100.0100, L500.2500 ####[facility] [address] [place], [address] CRPon 10-05-2024 C-REACTIVE PROT 251.00 mg/L High 0.0-3.0 [facility] Comment on above: Performed By: #### L 501.6710, L101.9900, L100.0100, L500.2500 ####[facility] [address] [place], [address] Emergency Department Summary on 10-05-2024 Emergency Department Summary Normal [facility] Erythrocyte Sed Rateon 10-05 SED RATE 37 mm/hr High 0-20 [facility] Comment on above: Performed By: #### L 501.6710, L101.9900, L100.0100, L500.2500 ####[facility] [address] [place], [address] Erythrocyte sedimentation ra teOrdered By: Wang Nuñez on 10-05-2024 ESR (Bld) [Velocity] 37 mm/h High 0-20 [facility] [facility] Foot min 3 Viewson 5 Foot min 3 Views Normal [facility] H AND P Exam - Hospitaliston 10-05-2024 H&P Exam - Hospitalist Normal [facility] Hemoglobin A1con 10-05-2024 HbA1c (Bld) [Mass fraction] 8.7 % High <=5.6 [facility] Comment on above: Result Comment: Norm al < 5.7 % Prediabetic 5.7 - 6.4 % Diabetic >or= 6.5 % Please note range changes. Performed By: #### L 501.9985 ####[facility] [address] [place], [place], [address] Hemoglobin A1c percentageOrd ered By: Stephen Deal on 10-05-2024 HbA1c (Bld) [Mass fraction] 8.7 % High <5.7 [facility] Comment on above: Normal < 5.7 % Predi abetic 5.7 - 6.4 % Diabetic >or= 6.5 % Please note range changes. Serum or plasma C reactive p rotein measurement (mass/volume)Ordered By: Wang Nuñez on 10-05-2024 CRP [Mass/Vol] 251.00 mg/L High 0.0-3.0 [facility] Wound Cultureon 09-12-2024 WC Normal [facility] Comment on above: Performed By: #### M 100.3000, ####[facility] [address] [place], [address] Gram Stainon 09-11-[address] RT TOE Gram Stain No organisms seen No White Blood Cells Normal [facility] Comment on above: Performed By: #### M 100.3000, ####[facility] [address] [place], [place], [address] Gram stainOrdered By: Janeen Morgan on 09-10-2024 Microscopic observation Gram stain Nom (Unsp spec) [facility] Routine wound cultureOrdered By: Jeffy Morgan on 09-10-2024 Microbial culture, routine Meth. resistant Staph. aureus Abnormal [facility] Chest without Contraston Chest without Contrast Normal [facility] Elbow min 3 Viewson 06-18-19 25 Elbow min 3 Views Normal [facility] Emergency Department Summary on 06-17-2024 Emergency Department Summary Normal [facility] Knee 4 or More Viewson 06-17 Knee 4 or More Views Normal [facility] Wound Cultureon 06-13-2024 WC Normal [facility] Comment on above: Performed By: #### M 100.1999, M100.3000 ####[facility] [address] [place], [address] Gram Stainon 06-12-2024 GS 3RD MET LEFT FOOT Gram Stain 3+ Gram positive cocci 3+ Red Blood Cells Normal [facility] Comment on above: Performed By: #### M 100.1999, M100.3000 ####[facility] [address] [place], [address] Gram stainOrdered By: Janeen Morgan on 06-11-2024 Microscopic observation Gram stain Nom (Unsp spec) [facility] B1WBon 05-25-2024 Vitamin B1 Whl Bld 143.1 nmol/L Normal 66.5-200.0 [facility] Comment on above: Result Comment: This test was developed and its performance characteristics determined by [facility]. It has not been cleared or approved by the Food and Drug Administration. Performed At: [address] [id number] Deng Hilton MD Ph:[phone] Performed By: #### C MP, GFR, LIPID, [id number], CBC, ADIFF, ANEU, PSA, VIDH, TSH #### [place] [address] #### B12, FOL #### [address] [address] .Auto Diffon 05-21-2024 Basophil, Absolute 0.0 10 3/mcL Normal 0.0-0.3 [facility] Comment on above: Performed By: #### C MP, GFR, LIPID, [id number], CBC, ADIFF, ANEU, PSA, VIDH, TSH #### [place] [address] #### B12, FOL #### [address] [address] Basophils/100 WBC (Bld) 0.5 % Normal 0.0-2.5 [facility] Comment on above: Performed By: #### C MP, GFR, LIPID, [id number], CBC, ADIFF, ANEU, PSA, VIDH, TSH #### [place] [address] #### B12, FOL #### [address] [address] Eosinophil, Absolute 0.4 10 3/mcL Normal 0.0-0.7 [facility] Comment on above: Performed By: #### C MP, GFR, LIPID, [id number], CBC, ADIFF, ANEU, PSA, VIDH, TSH #### [address] [address] #### B12, FOL #### [address] [address] Eosinophils/100 WBC (Bld) 7.4 % High 0.0-6.[address] [facility] Comment on above: Performed By: #### C MP, GFR, LIPID, [id number], CBC, ADIFF, ANEU, PSA, VIDH, TSH #### [place] [address] #### B12, FOL #### [address] [address] Lymphocyte, Absolute 1.0 10 3/mcL Normal 0.9-4.3 [facility] Comment on above: Performed By: #### C MP, GFR, LIPID, [id number], CBC, ADIFF, ANEU, PSA, VIDH, TSH #### [address] [address] #### B12, FOL #### [address] [address] Lymphocytes/100 WBC (Bld) 17.3 % Low 20.0-40.[address] [facility] Comment on above: Performed By: #### C MP, GFR, LIPID, [id number], CBC, ADIFF, ANEU, PSA, VIDH, TSH #### [address] [address] #### B12, FOL #### [address] [address] Monocyte, Absolute 0.5 10 3/mcL Normal 0.1-1.4 [facility] Comment on above: Performed By: #### C MP, GFR, LIPID, [id number], CBC, ADIFF, ANEU, PSA, VIDH, TSH #### [address] [address] #### B12, FOL #### [address] [address] Monocytes/100 WBC (Bld) 8.5 % Normal 2.0-13.0 [facility] Comment on above: Performed By: #### C MP, GFR, LIPID, [id number], CBC, ADIFF, ANEU, PSA, VIDH, TSH #### [address] [address] #### B12, FOL #### [address] [address] Neutrophils/100 WBC (Bld) 66.3 % Normal 50.0-75.[address] [facility] Comment on above: Performed By: #### C MP, GFR, LIPID, [id number], CBC, ADIFF, ANEU, PSA, VIDH, TSH #### [address] [address] #### B12, FOL #### [address] [address] .GFRon 05-21-2024 Estimated Glomerular Filtration Rate 50 ml/min/1.73sqm Normal [facility] Comment on above: Result Comment: Stages [...] calculate the eGFR results. Performed By: #### C MP, GFR, LIPID, [id number], CBC, ADIFF, ANEU, PSA, VIDH, TSH #### [place] [address] #### B12, FOL #### [place] [address] .NEUABSon 05-21-2024 Neutrophil, Absolute 3.8 10 3/mcL Normal 2.3-8.1 [facility] Comment on above: Performed By: #### C MP, GFR, LIPID, [id number], CBC, ADIFF, ANEU, PSA, VIDH, TSH #### [place] [address] #### B12, FOL #### [place] [address] B12on 05-21-2024 Cobalamin (Vitamin B12) [Mass/Vol] 458 pg/mL Normal 211-[address] [facility] Comment on above: Performed By: #### C MP, GFR, LIPID, [id number], CBC, ADIFF, ANEU, PSA, VIDH, TSH #### [address] [address] #### B12, FOL #### [place] [address] CBCon 05-21-2024 Erythrocyte distribution width (RBC) [Ratio] 13.6 % Normal 11.5-15.[address] [facility] Comment on above: Performed By: #### C MP, GFR, LIPID, [id number], CBC, ADIFF, ANEU, PSA, VIDH, TSH #### [place] [address] #### B12, FOL #### [place] [address] Hematocrit (Bld) [Volume fraction] 49.2 % Normal 40.0-52.[address] [facility] Comment on above: Performed By: #### C MP, GFR, LIPID, [id number], CBC, ADIFF, ANEU, PSA, VIDH, TSH #### [place] [address] #### B12, FOL #### [place] [address] Hgb 16.5 G/dL Normal 13.0-17.[address] [facility] Comment on above: Performed By: #### C MP, GFR, LIPID, [id number], CBC, ADIFF, ANEU, PSA, VIDH, TSH #### [place] [address] #### B12, FOL #### [place] [address] MCH (RBC) [Entitic mass] 30.8 pg Normal 27.0-33.[address] [facility] Comment on above: Performed By: #### C MP, GFR, LIPID, [id number], CBC, ADIFF, ANEU, PSA, VIDH, TSH #### [place] [address] #### B12, FOL #### [place] [address] MCHC 33.6 G/dL Normal 32.0-36.[address] [facility] Comment on above: Performed By: #### C MP, GFR, LIPID, [id number], CBC, ADIFF, ANEU, PSA, VIDH, TSH #### [place] [address] #### B12, FOL #### [place] [address] MCV (RBC) [Entitic vol] 91.8 fL Normal 81.0-100.0 [facility] Comment on above: Performed By: #### C MP, GFR, LIPID, [id number], CBC, ADIFF, ANEU, PSA, VIDH, TSH #### [place] [address] #### B12, FOL #### [place] [address] Platelet 175 10 3/mcL Normal 150-[address] [facility] Comment on above: Performed By: #### C MP, GFR, LIPID, [id number], CBC, ADIFF, ANEU, PSA, VIDH, TSH #### [place] [address] #### B12, FOL #### [place] [address] Platelet mean volume (Bld) [Entitic vol] 10.0 fL Normal 6.4-10.[address] [facility] Comment on above: Performed By: #### C MP, GFR, LIPID, [id number], CBC, ADIFF, ANEU, PSA, VIDH, TSH #### [place] [address] #### B12, FOL #### [place] [address] RBC 5.36 10 6/mcL Normal 4.50-6.[address] [facility] Comment on above: Performed By: #### C MP, GFR, LIPID, [id number], CBC, ADIFF, ANEU, PSA, VIDH, TSH #### [place] [address] #### B12, FOL #### [place] [address] WBC 5.7 10 3/mcL Normal 4.5-10.[address] [facility] Comment on above: Performed By: #### C MP, GFR, LIPID, [id number], CBC, ADIFF, ANEU, PSA, VIDH, TSH #### [address] [address] #### B12, FOL #### [address] [address] CMPon 05-21-2024 ALT [Catalytic activity/Vol] 11 U/L Low 16-[address] [facility] Comment on above: Performed By: #### C MP, GFR, LIPID, [id number], CBC, ADIFF, ANEU, PSA, VIDH, TSH #### [place] [address] #### B12, FOL #### [place] [address] Albumin Level 3.8 G/dL Normal 3.4-4.[address] [facility] Comment on above: Performed By: #### C MP, GFR, LIPID, [id number], CBC, ADIFF, ANEU, PSA, VIDH, TSH #### [place] [address] #### B12, FOL #### [place] [address] Albumin/Globulin [Mass ratio] 1.1 {ratio} Normal 1.1-2.[address] [facility] Comment on above: Performed By: #### C MP, GFR, LIPID, [id number], CBC, ADIFF, ANEU, PSA, VIDH, TSH #### [address] [address] #### B12, FOL #### [place] [address] ALP [Catalytic activity/Vol] 41 U/L Normal 40-[address] [facility] Comment on above: Performed By: #### C MP, GFR, LIPID, [id number], CBC, ADIFF, ANEU, PSA, VIDH, TSH #### [place] [address] #### B12, FOL #### [address] [address] AST [Catalytic activity/Vol] 11 U/L Normal 10-[address] [facility] Comment on above: Performed By: #### C MP, GFR, LIPID, [id number], CBC, ADIFF, ANEU, PSA, VIDH, TSH #### [place] [address] #### B12, FOL #### [address] [address] Bili Total 0.8 mg/dL Normal 0.2-1.[address] [facility] Comment on above: Result Comment: Use of this assay is not recommended for patients undergoing treatment with eltrombopag due to the potential for falsely elevated results. Performed By: #### C MP, GFR, LIPID, [id number], CBC, ADIFF, ANEU, PSA, VIDH, TSH #### [place] [address] #### B12, FOL #### [address] [address] BUN/Creatinine Ratio 29 ratio High 7-27 [facility] Comment on above: Performed By: #### C MP, GFR, LIPID, [id number], CBC, ADIFF, ANEU, PSA, VIDH, TSH #### [place] [address] #### B12, FOL #### [address] [address] Calcium [Mass/Vol] 9.5 mg/dL Normal 8.4-10.2 [facility] Comment on above: Performed By: #### C MP, GFR, LIPID, [id number], CBC, ADIFF, ANEU, PSA, VIDH, TSH #### [place] [address] #### B12, FOL #### [address] [address] Chloride [Moles/Vol] 103 mmol/L Normal 98-107 [facility] Comment on above: Performed By: #### C MP, GFR, LIPID, [id number], CBC, ADIFF, ANEU, PSA, VIDH, TSH #### [place] [address] #### B12, FOL #### [address] [address] CO2 [Moles/Vol] 32 mmol/L High 23-[address] [facility] Comment on above: Performed By: #### C MP, GFR, LIPID, [id number], CBC, ADIFF, ANEU, PSA, VIDH, TSH #### [address] [address] #### B12, FOL #### [address] [address] Creatinine [Mass/Vol] 1.47 mg/dL High 0.70-1.30 [facility] Comment on above: Result Comment: Test ing performed on Siemens Dimension EXL analyzer using a modified kinetic Carolyn technique. Performed By: #### C MP, GFR, LIPID, [id number], CBC, ADIFF, ANEU, PSA, VIDH, TSH #### [place] [address] #### B12, FOL #### [place] [address] Electrolyte Balance 7.0 mEq/L Normal 4.0-15.0 [facility] Comment on above: Performed By: #### C MP, GFR, LIPID, [id number], CBC, ADIFF, ANEU, PSA, VIDH, TSH #### [address] [address] #### B12, FOL #### [address] [address] Globulin 3.4 G/dL Normal 1.5-3.[address] [facility] Comment on above: Performed By: #### C MP, GFR, LIPID, [id number], CBC, ADIFF, ANEU, PSA, VIDH, TSH #### [place] [address] #### B12, FOL #### [address] [address] Glucose [Mass/Vol] 166 mg/dL High 83-110 [facility] Comment on above: Performed By: #### C MP, GFR, LIPID, [id number], CBC, ADIFF, ANEU, PSA, VIDH, TSH #### [address] [address] #### B12, FOL #### [address] [address] Potassium [Moles/Vol] 3.9 mmol/L Normal 3.5-5.1 [facility] Comment on above: Performed By: #### C MP, GFR, LIPID, [id number], CBC, ADIFF, ANEU, PSA, VIDH, TSH #### [place] [address] #### B12, FOL #### [address] [address] Sodium [Moles/Vol] 142 mmol/L Normal 136-145 [facility] Comment on above: Performed By: #### C MP, GFR, LIPID, [id number], CBC, ADIFF, ANEU, PSA, VIDH, TSH #### [place] [address] #### B12, FOL #### [address] [address] Total Protein 7.2 G/dL Normal 6.4-8.[address] [facility] Comment on above: Performed By: #### C MP, GFR, LIPID, [id number], CBC, ADIFF, ANEU, PSA, VIDH, TSH #### [address] [address] #### B12, FOL #### [address] [address] Urea nitrogen [Mass/Vol] 42 mg/dL High 7-[address] [facility] Comment on above: Performed By: #### C MP, GFR, LIPID, [id number], CBC, ADIFF, ANEU, PSA, VIDH, TSH #### [place] [address] #### B12, FOL #### [address] [address] FOLon 05-21-2024 Folate 19.66 ng/mL Normal 5.38-24.[address] [facility] Comment on above: Performed By: #### C MP, GFR, LIPID, [id number], CBC, ADIFF, ANEU, PSA, VIDH, TSH #### [address] [address] #### B12, FOL #### [address] [address] LIPIDon 05-21-2024 Cholesterol [Mass/Vol] 148 mg/dL Normal 0-200 [facility] Comment on above: Result Comment: Chol esterol Reference Interval: Less than 200 Desirable 200-239 Borderline high risk 240 and above High risk Performed By: #### C MP, GFR, LIPID, [id number], CBC, ADIFF, ANEU, PSA, VIDH, TSH #### [address] [address] #### B12, FOL #### [address] [address] Cholesterol in HDL [Mass/Vol] 40 mg/dL Normal 40-[address] [facility] Comment on above: Performed By: #### C MP, GFR, LIPID, [id number], CBC, ADIFF, ANEU, PSA, VIDH, TSH #### [address] [address] #### B12, FOL #### [address] [address] Cholesterol in LDL [Mass/Vol] 83 mg/dL Normal 0-[address] [facility] Comment on above: Performed By: #### C MP, GFR, LIPID, [id number], CBC, ADIFF, ANEU, PSA, VIDH, TSH #### [address] [address] #### B12, FOL #### [address] [address] Triglyceride [Mass/Vol] 125 mg/dL Normal 0-150 [facility] Comment on above: Result Comment: Trig lyceride Reference Interval: Less than 150 Normal 150-199 Borderline high risk 200-499 High risk 500 or higher Very high risk Performed By: #### C MP, GFR, LIPID, [id number], CBC, ADIFF, ANEU, PSA, VIDH, TSH #### [address] [address] #### B12, FOL #### [place] [address] MALBRon 05-21-2024 U Creatinine 92.0 mg/dL Normal [facility] Comment on above: Performed By: #### M ALBR #### [address] [address] U Microalb 97.4 mg/L Normal [facility] Comment on above: Performed By: #### M ALBR #### [address] [address] U Ratio Alb/Cre 106 mg/G High 0-[address] [facility] Comment on above: Performed By: #### M ALBR #### [address] [address] PSAon 05-21-2024 Prostate Specific Antigen 6.11 ng/mL High 0.00-4.[address] [facility] Comment on above: Order Comment: cc re sults to Dr. Adams Performed By: #### C MP, GFR, LIPID, [id number], CBC, ADIFF, ANEU, PSA, VIDH, TSH #### [address] [address] #### B12, FOL #### [place] [address] TSHon 05-21-2024 TSH Qn 1.40 m[IU]/L Normal 0.36-3.[address] [facility] Comment on above: Performed By: #### C MP, GFR, LIPID, [id number], CBC, ADIFF, ANEU, PSA, VIDH, TSH #### [place] [address] #### B12, FOL #### [place] [address] VIDHon 05-21-2024 Vit. D 25-Hydroxy 58.6 ng/mL Normal [facility] Comment on above: Result Comment: Inte rpretive Values Based on Total 25([place]) Vitamin D: Deficient <20 ng/mL Insufficient 20 - <30 ng/mL Sufficient 30-100 ng/mL Performed By: #### C MP, GFR, LIPID, [id number], CBC, ADIFF, ANEU, PSA, VIDH, TSH #### [place] [address] [place], [place] [address] #### B12, FOL #### [address] [address] L3410.9999on 03-13-2024 [facility] [place] COM[place] Normal . [facility] Comment on above: Order Comment: [id number] 1ANAEROBIC/AEROBIC W GRAM STAIN Result Comment: Test Ordered: [id number] Anaerobic/Aerobic/Gram StainAnaerobic Culture Note: CB Final report Reference Range: .Result 1 Comment CB Reference Range: .No anaerobic growth in 72 hours.Aerobic Culture Note: [A ] CB Final report Reference Range: .Result 1 Comment [A ] CB Reference Range: .Staphylococcus haemolyticusBased on resistance to oxacillin this isolate would beresistant to all currently available beta-lactamantimicrobial agents, with the exception of the newercephalosporins with anti-MRSA activity, such as CeftarolineHeavy growthAntimicrobial Susceptibility Comment CB Reference Range: . S = Susceptible; I = Intermediate; R = Resistant P = Positive; N = Negative MICS are expressed in micrograms per mL Antibiotic RSLT#1 RSLT#2 RSLT#3 RSLT#4Ciprofloxacin RClindamycin RErythromycin RGentamicin RLevofloxacin RLinezolid SMoxifloxacin ROxacillin RPenicillin RRifampin RTetracycline STrimethoprim/Sulfa RVancomycin SGram Stain Result Note: CB Final report Reference Range: .Result 1 Comment CB Reference Range: .No white blood cells seen.Result 2 Comment CB Reference Range: .Moderate number of gram positive cocci.Performed at: - [facility] [id number] Director: Jeremy Escobar PhD, Phone: [phone] Performed By: #### L 3410.9999 ####[facility] [address] [place], [address] Foot min 3 Viewson 5 Foot min 3 Views Normal [facility] W[facility] Ctr History AND Physic jerry 03-06-2024 Wound Ctr History & Physical Normal [facility] Wound Cultureon 2024 WC Normal [facility] Comment on above: Performed By: #### M 100.2000, M100.3000 ####[facility] [address] [place], [address] Gram Stainon 01-31-2024 GS Gram Stain 2+ Gram positive cocci Rare Gram positive rods No Epithelial cells No White Blood Cells Normal [facility] Comment on above: Performed By: #### M 100.2000, M100.3000 ####[facility] [address] [place], [address] Basic Metabolic Profile (BMP )on 01-30-2024 BUN/CRE 25.9 RATIO High - [facility] Comment on above: Performed By: #### L 100.0100, L500.2500 ####[facility] [address] [place], [address] CA,Total 9.4 mg/dL Normal 8.5-10.1 [facility] Comment on above: Performed By: #### L 100.0100, L500.2500 ####[facility] [address] [place], [address] Chloride [Moles/Vol] 106 mmol/L Normal 98-107 [facility] Comment on above: Performed By: #### L 100.0100, L500.2500 ####[facility] [address] [place], [address] CO2 [Moles/Vol] 29.0 mmol/L Normal 21.0-32.0 [facility] Comment on above: Performed By: #### L 100.0100, L500.2500 ####[facility] [address] [place], [address] Creatinine [Mass/Vol] 1.35 mg/dL High 0.70-1.30 [facility] Comment on above: Result Comment: The validity of the calculated GFR GFRAA in patients over70 years has not been determined. Clinical correlation isessential. Performed By: #### L 100.0100, L500.2500 ####[facility] [address] [place], [address] ECRCL 61.45 ml/min Normal [facility] Comment on above: Performed By: #### L 100.0100, L500.2500 ####[facility] [address] [place], [address] EST GFR - AA 67 mL/min Normal >60 [facility] Comment on above: Result Comment: Afri can [place] GFR Calc Performed By: #### L 100.0100, L500.2500 ####[facility] [address] [place], [address] GAP 4 Low 5-15 [facility] Comment on above: Performed By: #### L 100.0100, L500.2500 ####[facility] [address] [place], [address] GFR/1.73 sq M.predicted among non-blacks MDRD (S/P/Bld) [Vol rate/Area] 55 mL/min/{1.73_m2} Low >60 [facility] Comment on above: Result Comment: Non- GFR Calc Performed By: #### L 100.0100, L500.2500 ####[facility] [address] [place], [address] Glucose [Mass/Vol] 157 mg/dL High 74-106 [facility] Comment on above: Result Comment: Fast ing Glucose result greater than or equal to 126 mg/dLsuggests DIABETES MELLITUS per A.D.A. criteria. Performed By: #### L 100.0100, L500.2500 ####[facility] [address] [place], [address] Potassium [Moles/Vol] 4.0 mmol/L Normal 3.5-5.1 [facility] Comment on above: Performed By: #### L 100.0100, L500.2500 ####[facility] [address] [place], [address] Sodium [Moles/Vol] 139 mmol/L Normal 136-145 [facility] Comment on above: Performed By: #### L 100.0100, L500.2500 ####[facility] [address] [place], [address] Urea nitrogen [Mass/Vol] 35 mg/dL High 7-18 [facility] Comment on above: Performed By: #### L 100.0100, L500.2500 ####[facility] [address] [place], [address] CBC W/Diff, Automatedon 12- Absolute Lymph 0.94 X10 3/uL Normal 0.83-4.51 [facility] Comment on above: Performed By: #### L 100.0100, L500.2500 ####[facility] [address] [place], [address] Absolute Neut 5.3 X10 3/uL Normal 2.0-7.7 [facility] Comment on above: Performed By: #### L 100.0100, L500.2500 ####[facility] [address] [place], [address] Basophils/100 WBC (Bld) 0.4 % Normal 0-1 [facility] Comment on above: Performed By: #### L 100.0100, L500.2500 ####[facility] [address] [place], [address] Eosinophils/100 WBC (Bld) 4.7 % Normal 0-5 [facility] Comment on above: Performed By: #### L 100.0100, L500.2500 ####[facility] [address] [place], [address] Erythrocyte distribution width (RBC) [Ratio] 12.0 % Normal 11.6-14.6 [facility] Comment on above: Performed By: #### L 100.0100, L500.2500 ####[facility] [address] [place], [address] Hematocrit (Bld) [Volume fraction] 47.6 % Normal 40-54 [facility] Comment on above: Performed By: #### L 100.0100, L500.2500 ####[facility] [address] [place], [address] Hemoglobin (Bld) [Mass/Vol] 16.2 g/dL Normal 13.0-16.5 [facility] Comment on above: Performed By: #### L 100.0100, L500.2500 ####[facility] [address] [place], [address] IG% 0.400 Normal 0.0-0.9 [facility] Comment on above: Result Comment: IG% - Immature Granulocytes (promyelocytes, myelocytes andmetamyelocytes) > 1% indicates that a LEFT SHIFT is Present. Performed By: #### L 100.0100, L500.2500 ####[facility] [address] [place], [address] Lymphocytes/100 WBC (Bld) 13.0 % Low 19-41 [facility] Comment on above: Performed By: #### L 100.0100, L500.2500 ####[facility] [address] [place], [address] MCH (RBC) [Entitic mass] 30.9 pg Normal 27.0-32.0 [facility] Comment on above: Performed By: #### L 100.0100, L500.2500 ####[facility] [address] [place], [address] MCHC (RBC) [Mass/Vol] 34.0 g/dL Normal 32-36 [facility] Comment on above: Performed By: #### L 100.0100, L500.2500 ####[facility] [address] [place], [address] MCV (RBC) [Entitic vol] 90.7 fL Normal 80-94 [facility] Comment on above: Performed By: #### L 100.0100, L500.2500 ####[facility] [address] [place], [address] Monocytes/100 WBC (Bld) 7.5 % Normal 0-10 [facility] Comment on above: Performed By: #### L 100.0100, L500.2500 ####[facility] [id number] [place], [address] Neutrophils/100 WBC (Bld) 74.0 % High 47-70 [facility] Comment on above: Performed By: #### L 100.0100, L500.2500 ####[facility] [address] [place], [address] Nucleated RBC (Bld) [#/Vol] 0 10*3/uL Normal 0-5 [facility] Comment on above: Performed By: #### L 100.0100, L500.2500 ####[facility] [address] [place], [address] Platelet mean volume (Bld) [Entitic vol] 11.1 fL Normal 6.2-12.0 [facility] Comment on above: Performed By: #### L 100.0100, L500.2500 ####[facility] [address] [place], [address] Platelets (Bld) [#/Vol] 192 10*3/uL Normal 150-450 [facility] Comment on above: Performed By: #### L 100.0100, L500.2500 ####[facility] [address] [place], [address] RBC (Bld) [#/Vol] 5.25 10*6/uL Normal 4.6-6.2 [facility] Comment on above: Performed By: #### L 100.0100, L500.2500 ####[facility] [address] [place], [address] RDW SD 39.8 fl Normal 35.1-43.9 [facility] Comment on above: Performed By: #### L 100.0100, L500.2500 ####[facility] [address] [place], [address] WBC (Bld) [#/Vol] 7.2 10*3/uL Normal 4.4-11.0 [facility] Comment on above: Performed By: #### L 100.0100, L500.2500 ####[facility] [address] [place], [address] Emergency Department Summary on 01-30-2024 Emergency Department Summary Normal [facility] Foot min 3 Viewson 4 Foot min 3 Views Normal [facility] LABORATORYOrdered By: SYSTEM SYSTEM on 11-02-2023 25-hydroxyvitamin [...] calculated value from Hemoglobin A1C and is outbound call center representative of the average blood glucose level [...] Cholesterol [Mass/Vol] 162 mg/dL Normal 0 - 2 00 mg/dL AO ADM SS Comment on above: [...] risk 500 or higher Very high risk XR KNEE THREE VIEWS RIGHTon 02-03-2023 XR KNEE THREE VIEWS RIGHT ORIGINAL EXAMINATION: THREE XRAY VIEWS OF THE RIGHT KNEE02/03/2023 8:48 am COMPARISON: None available HISTORY: ORDERING SYSTEM PROVIDED HISTORY: Reason for Exam: Right knee pain and swelling for 10 days, no trauma FINDINGS: No acute fracture or dislocation is identified. Bony alignment is maintained. Small tricompartmental calcifications are visualized. Gsji-ib-bjgooanj tricompartmental degenerative changes with joint space narrowing [...] 02/03/2023 8:59:10 AM Ordering Provider: HUGH Shah [facility] ([place]) .Auto Diffon 12-21-2022 Basophil, Absolute 0.0 10 3/mcL Normal 0.0-0.2 [facility] ([place]) Comment on above: Performed By: #### G FR, ADIFF, LIPID, CBC, TSH, VIDH, ANEU, CMP, PSA, A1C #### [address] [address] Basophils/100 WBC (Bld) 0.6 % Normal 0.0-2.5 [facility] ([place]) Comment on above: Performed By: #### G FR, ADIFF, LIPID, CBC, TSH, VIDH, ANEU, CMP, PSA, A1C #### [address] [address] Eosinophil, Absolute 0.4 10 3/mcL Normal 0.0-0.4 [facility] ([place]) Comment on above: Performed By: #### G FR, ADIFF, LIPID, CBC, TSH, VIDH, ANEU, CMP, PSA, A1C #### [address] [address] Eosinophils/100 WBC (Bld) 7.6 % High 0.0-7.0 [facility] ([place]) Comment on above: Performed By: #### G FR, ADIFF, LIPID, CBC, TSH, VIDH, ANEU, CMP, PSA, A1C #### [address] [address] Lymphocyte, Absolute 1.6 10 3/mcL Normal 0.8-3.9 [facility] ([place]) Comment on above: Performed By: #### G FR, ADIFF, LIPID, CBC, TSH, VIDH, ANEU, CMP, PSA, A1C #### [address] [address] Lymphocytes/100 WBC (Bld) 26.7 % Normal 10.0-50.0 [facility] ([place]) Comment on above: Performed By: #### G FR, ADIFF, LIPID, CBC, TSH, VIDH, ANEU, CMP, PSA, A1C #### [address] [address] Monocyte, Absolute 0.5 10 3/mcL Normal 0.2-1.0 [facility] ([place]) Comment on above: Performed By: #### G FR, ADIFF, LIPID, CBC, TSH, VIDH, ANEU, CMP, PSA, A1C #### [address] [address] Monocytes/100 WBC (Bld) 8.4 % Normal 1.7-13.0 [facility] ([place]) Comment on above: Performed By: #### G FR, ADIFF, LIPID, CBC, TSH, VIDH, ANEU, CMP, PSA, A1C #### [id number] [place], [place] [address] Neutrophils/100 WBC (Bld) 56.7 % Normal 37.0-80.0 [facility] ([place]) Comment on above: Performed By: #### G FR, ADIFF, LIPID, CBC, TSH, VIDH, ANEU, CMP, PSA, A1C #### [address] [address] .GFRon 12-21-2022 GFR Non- 53 ml/min/1.73sqm Normal [facility] ([place]) Comment on above: Result Comment: GFR Population [...] TSH, VIDH, ANEU, CMP, PSA, A1C #### [id number] [place], [place] [address] GFR 64 ml/min/1.73sqm Normal [facility] ([place]) Comment on above: Result Comment: GFR Population [...] TSH, VIDH, ANEU, CMP, PSA, A1C #### [address] [address] .NEUABSon 12-21-2022 Neutrophil, Absolute 3.3 10 3/mcL Normal 2.9-6.2 [facility] ([place]) Comment on above: Performed By: #### G FR, ADIFF, LIPID, CBC, TSH, VIDH, ANEU, CMP, PSA, A1C #### [address] [address] A1Con 12-21-2022 HbA1c (Bld) [Mass fraction] 10.1 % High 4.3-6.4 [facility] ([place]) Comment on above: Performed By: #### G FR, ADIFF, LIPID, CBC, TSH, VIDH, ANEU, CMP, PSA, A1C #### [address] [address] CBCon 12-21-2022 Erythrocyte distribution width (RBC) [Ratio] 12.6 % Normal 11.5-14.5 [facility] ([place]) Comment on above: Performed By: #### G FR, ADIFF, LIPID, CBC, TSH, VIDH, ANEU, CMP, PSA, A1C #### [address] [address] Hematocrit (Bld) [Volume fraction] 47.6 % Normal 42.0-52.0 [facility] ([place]) Comment on above: Performed By: #### G FR, ADIFF, LIPID, CBC, TSH, VIDH, ANEU, CMP, PSA, A1C #### [address] [address] Hgb 16.3 G/dL Normal 14.0-18.0 [facility] ([place]) Comment on above: Performed By: #### G FR, ADIFF, LIPID, CBC, TSH, VIDH, ANEU, CMP, PSA, A1C #### [address] [address] MCH (RBC) [Entitic mass] 31.6 pg High 27.0-31.2 [facility] ([place]) Comment on above: Performed By: #### G FR, ADIFF, LIPID, CBC, TSH, VIDH, ANEU, CMP, PSA, A1C #### [address] [address] MCHC 34.3 G/dL Normal 31.8-35.4 [facility] ([place]) Comment on above: Performed By: #### G FR, ADIFF, LIPID, CBC, TSH, VIDH, ANEU, CMP, PSA, A1C #### [id number] MCV (RBC) [Entitic vol] 92.2 fL Normal 80.0-94.0 [facility] ([place]) Comment on above: Performed By: #### G FR, ADIFF, LIPID, CBC, TSH, VIDH, ANEU, CMP, PSA, A1C #### [id number] Platelet 177 10 3/mcL Normal 130-400 [facility] ([place]) Comment on above: Performed By: #### G FR, ADIFF, LIPID, CBC, TSH, VIDH, ANEU, CMP, PSA, A1C #### [address] [address] Platelet mean volume (Bld) [Entitic vol] 9.8 fL Normal 7.4-10.4 [facility] ([place]) Comment on above: Performed By: #### G FR, ADIFF, LIPID, CBC, TSH, VIDH, ANEU, CMP, PSA, A1C #### [address] [address] RBC 5.16 10 6/mcL Normal 4.04-6.13 [facility] ([place]) Comment on above: Performed By: #### G FR, ADIFF, LIPID, CBC, TSH, VIDH, ANEU, CMP, PSA, A1C #### [address] [address] WBC 5.8 10 3/mcL Normal 4.6-10.8 [facility] ([place]) Comment on above: Performed By: #### G FR, ADIFF, LIPID, CBC, TSH, VIDH, ANEU, CMP, PSA, A1C #### [address] [address] CMPon 12-21-2022 Albumin Level 3.9 G/dL Normal 3.4-4.8 [facility] ([place]) Comment on above: Performed By: #### G FR, ADIFF, LIPID, CBC, TSH, VIDH, ANEU, CMP, PSA, A1C #### [address] [address] Albumin/Globulin [Mass ratio] 1.3 {ratio} Normal 1.1-2.5 [facility] ([place]) Comment on above: Performed By: #### G FR, ADIFF, LIPID, CBC, TSH, VIDH, ANEU, CMP, PSA, A1C #### [address] [address] ALP [Catalytic activity/Vol] 36 U/L Low 40-135 [facility] ([place]) Comment on above: Performed By: #### G FR, ADIFF, LIPID, CBC, TSH, VIDH, ANEU, CMP, PSA, A1C #### [address] [address] ALT [Catalytic activity/Vol] 20 U/L Normal 16-63 [facility] ([place]) Comment on above: Performed By: #### G FR, ADIFF, LIPID, CBC, TSH, VIDH, ANEU, CMP, PSA, A1C #### [address] [address] AST [Catalytic activity/Vol] 12 U/L Normal 10-40 [facility] ([place]) Comment on above: Performed By: #### G FR, ADIFF, LIPID, CBC, TSH, VIDH, ANEU, CMP, PSA, A1C #### [address] [address] Bili Total 0.7 mg/dL Normal 0.2-1.0 [facility] ([place]) Comment on above: Result Comment: Use of this assay is not recommended for patients undergoing treatment with eltrombopag due to the potential for falsely elevated results. Performed By: #### G FR, ADIFF, LIPID, CBC, TSH, VIDH, ANEU, CMP, PSA, A1C #### [address] [address] BUN/Creatinine Ratio 30 ratio High 7-27 [facility] ([place]) Comment on above: Performed By: #### G FR, ADIFF, LIPID, CBC, TSH, VIDH, ANEU, CMP, PSA, A1C #### [address] [address] Calcium [Mass/Vol] 9.5 mg/dL Normal 8.4-10.2 [facility] ([place]) Comment on above: Performed By: #### G FR, ADIFF, LIPID, CBC, TSH, VIDH, ANEU, CMP, PSA, A1C #### [address] [address] Chloride [Moles/Vol] 101 mmol/L Normal 98-107 [facility] ([place]) Comment on above: Performed By: #### G FR, ADIFF, LIPID, CBC, TSH, VIDH, ANEU, CMP, PSA, A1C #### [address] [address] CO2 [Moles/Vol] 31 mmol/L Normal 23-31 [facility] ([place]) Comment on above: Performed By: #### G FR, ADIFF, LIPID, CBC, TSH, VIDH, ANEU, CMP, PSA, A1C #### [address] [address] Creatinine [Mass/Vol] 1.33 mg/dL High 0.70-1.30 [facility] ([place]) Comment on above: Performed By: #### G FR, ADIFF, LIPID, CBC, TSH, VIDH, ANEU, CMP, PSA, A1C #### [address] [address] Electrolyte Balance 11.0 mEq/L Normal 4.0-15.0 [facility] ([place]) Comment on above: Performed By: #### G FR, ADIFF, LIPID, CBC, TSH, VIDH, ANEU, CMP, PSA, A1C #### [address] [address] Globulin 2.9 G/dL Normal [facility] ([place]) Comment on above: Performed By: #### G FR, ADIFF, LIPID, CBC, TSH, VIDH, ANEU, CMP, PSA, A1C #### [address] [address] Glucose [Mass/Vol] 259 mg/dL High 83-110 [facility] ([place] Comment on above: Performed By: #### G FR, ADIFF, LIPID, CBC, TSH, VIDH, ANEU, CMP, PSA, A1C #### [address] [address] Potassium [Moles/Vol] 4.4 mmol/L Normal 3.5-5.1 [facility] ([place] Comment on above: Performed By: #### G FR, ADIFF, LIPID, CBC, TSH, VIDH, ANEU, CMP, PSA, A1C #### [address] [address] Sodium [Moles/Vol] 143 mmol/L Normal 136-145 [facility] ([place]) Comment on above: Performed By: #### G FR, ADIFF, LIPID, CBC, TSH, VIDH, ANEU, CMP, PSA, A1C #### [address] [address] Total Protein 6.8 G/dL Normal 6.4-8.2 [facility] ([place]) Comment on above: Performed By: #### G FR, ADIFF, LIPID, CBC, TSH, VIDH, ANEU, CMP, PSA, A1C #### [address] [address] Urea nitrogen [Mass/Vol] 40 mg/dL High 7-18 [facility] ([place]) Comment on above: Performed By: #### G FR, ADIFF, LIPID, CBC, TSH, VIDH, ANEU, CMP, PSA, A1C #### [address] [place], [place] [address] LABORATORYOrdered By: SYSTEM SYSTEM on 12-21-2022 25-hydroxyvitamin [...] 12-21-2022 Cholesterol [Mass/Vol] 208 mg/dL High 0-200 [facility] ([place]) Comment on above: Result Comment: Chol esterol Reference Interval: Less than 200 Desirable 200-239 Borderline high risk 240 and above High risk Performed By: #### G FR, ADIFF, LIPID, CBC, TSH, VIDH, ANEU, CMP, PSA, A1C #### [address] [place], [place] [address] Cholesterol in HDL [Mass/Vol] 39 mg/dL Low 40-60 [facility] ([place]) Comment on above: Performed By: #### G FR, ADIFF, LIPID, CBC, TSH, VIDH, ANEU, CMP, PSA, A1C #### [address] [address] Cholesterol in LDL [Mass/Vol] 132 mg/dL High 0-130 [facility] ([place]) Comment on above: Performed By: #### G FR, ADIFF, LIPID, CBC, TSH, VIDH, ANEU, CMP, PSA, A1C #### [address] [address] Triglyceride [Mass/Vol] 185 mg/dL High 0-150 [facility] ([place]) Comment on above: Result Comment: Trig lyceride Reference Interval: Less than 150 Normal 150-199 Borderline high risk 200-499 High risk 500 or higher Very high risk Performed By: #### G FR, ADIFF, LIPID, CBC, TSH, VIDH, ANEU, CMP, PSA, A1C #### [address] [address] PSAon 12-21-2022 Prostate Specific Antigen 4.34 ng/mL High 0.00-4.00 [facility] ([place]) Comment on above: Performed By: #### G FR, ADIFF, LIPID, CBC, TSH, VIDH, ANEU, CMP, PSA, A1C #### [address] [address] TSHon 12-21-2022 TSH Qn 1.62 m[IU]/L Normal 0.36-3.74 [facility] ([place]) Comment on above: Performed By: #### G FR, ADIFF, LIPID, CBC, TSH, VIDH, ANEU, CMP, PSA, A1C #### [address] [address] VIDHon 12-21-2022 Vit. D 25-Hydroxy 44.2 ng/mL Normal [facility] ([place]) Comment on above: Result Comment: Inte rpretive Values Based on Total 25(OH) Vitamin D: Deficient <20 ng/mL Insufficient 20 - <30 ng/mL Sufficient 30-100 ng/mL Performed By: #### G FR, ADIFF, LIPID, CBC, TSH, VIDH, ANEU, CMP, PSA, A1C #### [address] [place], [place] [address] LABORATORYOrdered By: SYSTEM SYSTEM on 02-01-2022 Albumin [...] Albumin DL <= 20 mg/L (U) [Mass/Vol] [address] mcg/dL Invalid Interpretation Code AO ADM SS [...] Time Vital Sign Value Performing Clinician Facility 11-12-2024 07:40-0400 Body temperature 96.7 [degF] Dr. Elana Hickman DO Work Phone: [facility] 11-12-2024 07:40-0400 Diastolic blood pressure 88 mm[Hg] Dr. Elana Hickman DO Work Phone: [facility] 11-12-2024 07:40-0400 Heart rate 64 /min Dr. Elana Hickman DO Work Phone: [facility] 11-12-2024 07:40-0400 Respiratory rate 18 /min Dr. Elana Hickman DO Work Phone: [facility] 11-12-2024 07:40-0400 SaO2% (BldA) [Mass fraction] 98 % Dr. Elana Hickman DO Work Phone: [facility] 11-12-2024 07:40-0400 Systolic blood pressure 169 mm[Hg] Dr. Elana Hickman DO Work Phone: [facility] 11-06-2024 15:37-0400 Body height 180.[address] Elana Hickman DO Work Phone: [facility] 11-06-2024 15:37-0400 Body weight 104.[address] Elana Hickman DO Work Phone: [facility] 11-05-2024 15:00-0400 Body mass index (BMI) [Ratio] 32.2 kg/m2 Dr. Elana Hickman DO Work Phone: [facility] 10-31-2024 15:35-0400 Inhaled oxygen flow rate 3 L/min Dr. Elana Hickman DO Work Phone: [facility] 10-11-2024 07:52-0400 Body temperature 98 [degF] Dr. Elana Hickman DO Work Phone: [facility] 10-11-2024 07:52-0400 Diastolic blood pressure 78 mm[Hg] Dr. Elana Hickman DO Work Phone: [facility] 10-11-2024 07:52-0400 Heart rate 68 /min Dr. Elana Hickman DO Work Phone: [facility] 10-11-2024 07:52-0400 Respiratory rate 16 /min Dr. Elana Hickman DO Work Phone: [facility] 10-11-2024 07:52-0400 SaO2% (BldA) [Mass fraction] 94 % Dr. Elana Hickman DO Work Phone: [facility] 10-11-2024 07:52-0400 Systolic blood pressure 148 mm[Hg] Dr. Elana Hickman DO Work Phone: [facility] 10-10-2024 10:32-0400 Body height 180.[address] Elana Hickman DO Work Phone: [facility] 10-10-2024 10:32-0400 Body mass index (BMI) [Ratio] 33.4 kg/m2 Dr. Elana Hickman DO Work Phone: [facility] 10-10-2024 10:32-0400 Body weight 108.[address] Elana Hickman DO Work Phone: [facility] 06-18-2024 00:00-0400 Body temperature 98 [degF] Dr. Elana Hickman DO Work Phone: [facility] 06-18-2024 00:00-0400 Diastolic blood pressure 76 mm[Hg] Dr. Elana Hickman DO Work Phone: [facility] 06-18-2024 00:00-0400 Heart rate 75 /min Dr. Elana Hickman DO Work Phone: [facility] 06-18-2024 00:00-0400 Respiratory rate 18 /min Dr. Elana Hickman DO Work Phone: [facility] 06-18-2024 00:00-0400 SaO2% (BldA) [Mass fraction] 98 % Dr. Elana Hickman DO Work Phone: [facility] 06-18-2024 00:00-0400 Systolic blood pressure 120 mm[Hg] Dr. Elana Hickman DO Work Phone: [facility] 06-17-2024 20:44-0400 Body height 180.[address] Elana Hickman DO Work Phone: [facility] 06-17-2024 20:44-0400 Body mass index (BMI) [Ratio] 32.5 kg/m2 Dr. Elana Hickman DO Work Phone: [facility] 06-17-2024 20:44-0400 Body weight 105.[address] Elana Hickman DO Work Phone: [facility] 02-03-2023 08:03-0500 Body height 180.3 cm HUGH MOREL MD [facility] 02-03-2023 08:03-0500 Body temperature 98.42 [degF] HUGH MOREL MD [facility] 02-03-2023 08:03-0500 Body weight 95.5 kg HUGH MOREL MD [facility] 02-03-2023 08:03-0500 Diastolic Blood Pressure Non-Invasive 91 mm[Hg] HUGH MOREL MD [facility] 02-03-2023 08:03-0500 Heart rate 76 /min HUGH MOREL MD [facility] 02-03-2023 08:03-0500 Respiratory rate 20 /min HUGH MOREL MD [facility] 02-03-2023 08:03-0500 Systolic Blood Pressure Non-Invasive 165 mm[Hg] HUGH MOREL MD [facility] 10-28-2022 02:30-0400 Body height 180.34 cm [facility] 10-28-2022 02:30-0400 Body mass index (BMI) [Ratio] 31.1 kg/m2 [facility] 10-28-2022 02:30-0400 Body temperature 97.6 [degF] [facility] 10-28-2022 02:30-0400 Body weight 101.3 kg [facility] 10-28-2022 02:30-0400 Diastolic blood pressure 109 mm[Hg] [facility] 10-28-2022 02:30-0400 Heart rate 76 /min [facility] 10-28-2022 02:30-0400 Respiratory rate 20 /min [facility] 10-28-2022 02:30-0400 SaO2% (BldA) [Mass fraction] 95 % [facility] 10-28-2022 02:30-0400 Systolic blood pressure 188 mm[Hg] [facility] 10-25-2022 05:19-0400 Body temperature 98.24 [degF] DR ROBE KUO MD [facility] 10-25-2022 05:19-0400 Diastolic Blood Pressure Non-Invasive [address] ROBE KUO MD [facility] 10-25-2022 05:19-0400 Heart rate 83 /min DR ROBE KUO MD [facility] 10-25-2022 05:19-0400 Respiratory rate 18 /min DR ROBE KUO MD [facility] 10-25-2022 05:19-0400 Systolic Blood Pressure Non-Invasive [address] ROBE KUO MD [facility] Encounters Encounter Date Encounter Type Care Provider Facility Start: 12-17-2024 ambulatory ELANA Curryi ty:[facility] Start: 11-27-2024 End: 11-27-2024 ambulatory Elana Deweykaitlyn Facility:[facility] Start: 10-11-2024 End: 11-12-2024 Evaluation and management of inpatient Dr. Ion Vega MD -Transitional Care Unit Start: 10-11-2024 Non-patient / Non-visit Dr. Ryne Ferrari [facility] Work Phone: Start: 10-10-2024 Non-patient / Non-visit Dr. Ryne Ferrari [facility] Work Phone: Start: 10-10-2024 [facility] Start: 10-10-2024 Non-patient / Non-visit Dr. Esau monahan MD -[facility] Work Phone: Start: 10-09-2024 Non-patient / Non-visit Dr. Ryne Ferrari [facility] Work Phone: Start: 10-08-2024 Non-patient / Non-visit Dr. Ryne Ferrari [facility] Work Phone: Start: 10-07-2024 Non-patient / Non-visit Dr. Ryne Ferrari [facility] Work Phone: Start: 10-06-2024 Non-patient / Non-visit Dr. Silvia Son MD -[facility] Work Phone: Start: 10-05-2024 ambulatory Ryne Steward Facility:[facility] Start: 10-05-2024 End: 10-11-2024 Evaluation and management of inpatient Dr. Ryne Steward DO -Medical Surgical 3 Work Phone: Start: 09-10-2024 End: 09-10-[address] Elana Hickman DO Work Phone: -Laboratory Specimen Start: 09-10-2024 End: 09-10-[address] Jeffy Morgan DPM -Laboratory Specimen Work Phone: Start: 09-10-2024 End: 09-10-2024 ambulatory Jeffy Morgan Facility:[facility] Start: 06-17-2024 End: 06-18-2024 Emergency department patient visit Dr. Neville Swan DO -Emergency Department Work Phone: Start: 06-11-2024 End: 06-11-[address] Jeffy Morgan DPM -Laboratory Specimen Work Phone: Start: 06-11-2024 End: 06-11-2024 ambulatory Elana Hickman Facility:[facility] Start: 05-21-2024 End: 05-21-2024 ambulatory ELANA HICKMAN DO Facility:[facility] Start: 05-21-2024 Encounter for genera l adult medical examination without abnormal findings ELANA HICKMAN DO [facility] Start: 04-03-2024 End: 04-12-2024 ambulatory Elana Hickman Facility:[facility] Start: 03-13-2024 End: 03-15-2024 ambulatory Elana Hickman Facility:[facility] Start: 03-05-2024 End: 03-05-[address] AHMET ALRSON DPM Facility:[facility] Start: 03-05-2024 End: 03-05-[address] AHMET LARSON DPM [facility] Start: 01-30-2024 End: 01-30-2024 Emergency department patient visit Elana Hickman Facility:[facility] Start: 11-02-2023 End: 11-06-2023 Outreach Lab ELANA DEWEYKAITLYN VICK [facility] Start: 02-03-2023 End: 02-03-2023 Emergency department patient visit HUGH MOREL MD Facility:[facility] Start: 02-03-2023 End: 02-03-2023 Emergency department patient visit HUGH MOREL MD [facility] Start: 12-21-2022 End: 12-22-2022 ambulatory ELANA VICK VICK Facility:[facility] Start: 12-21-2022 End: 12-21-2022 Patient encounter procedure ELANA VICK VICK [facility] Start: 11-12-2022 End: 12-06-2022 ambulatory MANUEL HERNANDEZ PODIATRY PROFESSOR-ENVIRONMENTAL COMPLIANCE TECHNICIAN Facility:[facility] Start: 10-28-2022 End: 10-28-2022 Emergency department patient visit [facility]-Emergency Department Work Phone: Start: 10-25-2022 End: 10-25-2022 Emergency department patient visit ELANA VICK Facility:[facility] Start: 10-25-2022 End: 10-25-2022 Emergency department patient visit DR ROBE KUO MD [facility] Start: 02-01-2022 End: 02-01-2022 Patient encounter procedure ELANA VICK VICK [facility] Start: 07-20-2021 End: 07-20-2021 Patient encounter procedure ELANA VICK VICK [facility] Start: 05-14-2021 End: 05-14-2021 Patient encounter procedure ELANA VICK VICK [facility] Procedures Date Procedure Procedure Detail Performing Clinician Start: 11-08-2024 X-ray of lumbosacral spine Dr. Elana Hickman DO Work Phone: Start: 11-01-[address] Elana Hickman DO Work Phone: Start: 10-18-2024 Radex ankle complete minimum [address] Elana Hickman DO Work Phone: Start: 10-11-[address] Elana Hickman DO Work Phone: Start: 10-11-2024 Lymphocyte percent differential count Dr. Elana Hickmna DO Work Phone: Start: 10-10-[address] Elana Hickman DO Work Phone: Start: 10-10-2024 Gram stain microscopy Harpreet Hickman DO Work Phone: Start: 10-10-2024 End: 10-10-2024 Microbial culture, routine Dr. Elana price DO Work Phone: Start: 10-10-[address] Mauro Hickman DO Work Phone: Start: 10-10-2024 Fluoroscopic guidance Harpreet Hickman DO Work Phone: Start: 10-10-2024 X-ray of foot, two views Dr. Elana Hickman DO Work Phone: Start: 10-07-2024 MRI of lower limb wi th contrast Dr. Elana Hickman DO Work Phone: Start: 10-06-2024 Plain X-ray of shoulder Dr. Elana Hickman DO Work Phone: Start: 10-05-2024 X-ray of ankle, thre e or more views Dr. Elana Hickman DO Work Phone: Start: 10-05-2024 X-ray of foot, three or more views Dr. Elana Hickman DO Work Phone: Start: 09-10-2024 Gram stain microscopy Harpreet Hickman [...] Work Phone: Start: 06-11-2024 Gram stain microscopy D mayra Hickman DO Work Phone: Start: 06-11-2024 End: 06-11-2024 Microbial culture, routine Dr. Elana price DO Work Phone: Start: 10-28-2022 CT cervical spine wi thout contrast Start: 10-28-2022 Plain X-ray of shoulder Appendectomy ELANA Mullins O History of appendectomy h/o appendectomy Plan of Treatment Date Care Activity Detail Author Start: 11-12-2024 Patient discharge [facility] Start: 11-11-2024 Speech therapy management [facility] Start: 11-10-2024 [facility] Start: 11-08-2024 Developing a treatment plan [facility] Start: 11-07-2024 [facility] Start: 11-07-2024 Referral to service [facility] Start: 11-05-2024 Referral to service [facility] Start: 11-05-2024 [facility] Start: 10-17-2024 Consultation for treatment [facility] Start: 10-17-2024 Wound care [facility] Start: 10-15-2024 Speech therapy management [facility] Start: 10-15-2024 Speech therapy assessment [facility] Start: 10-15-2024 [facility] Start: 10-13-2024 Consultation [facility] Start: 10-12-2024 Development of care plan [facility] Start: 10-12-2024 Developing a treatment plan [facility] Start: 10-11-2024 Referral to plastic installer [facility] Start: 10-11-2024 Following clinical pathway protocol [facility] Start: 10-11-2024 Admission procedure [facility] Start: 10-11-2024 Introduction of urinary catheter [facility] Start: 10-11-2024 Measuring intake and output [facility] Start: 10-11-2024 Patient referral to dietitian [facility] Start: 10-11-2024 Referral for physical therapy [facility] Start: 10-11-2024 Referral to occupational therapist [facility] Start: 10-11-2024 Vital signs measurements [facility] Start: 10-11-2024 End: 10-11-2024 [facility] Start: 10-11-2024 Patient discharge [facility] Start: 10-11-2024 Consultation [facility] Start: 10-10-2024 Acid Fast Bacilli Culture Acid Fast Bacilli Culture [facility] Start: 10-10-2024 Acid Fast Bacilli Smear Acid Fast Bacilli Smear [facility] Start: 10-10-2024 Anaerobic Culture Anaerobic Culture [facility] Start: 10-10-2024 Fungal Culture Fungal Culture [facility] Start: 10-10-2024 Fungal Smear Fungal Smear [facility] Start: 10-10-2024 Microbial culture, routine Wound Culture [facility] Start: 10-10-2024 Acid fast bacilli culture [facility] Start: 10-10-2024 Mycology culture [facility] Start: 10-10-2024 Source specific culture [facility] Start: 10-10-2024 [facility] Start: 10-08-2024 Consultation [facility] Start: 10-08-2024 Referral to plastic installer [facility] Start: 10-07-2024 Wound care [facility] Start: 10-06-2024 End: 10-07-2024 [facility] Start: 10-05-2024 Following clinical pathway protocol [facility] Start: 10-05-2024 Following clinical pathway protocol [facility] Start: 10-05-2024 Ambulation without limitation [facility] Start: 10-05-2024 Assessment of risk of venous thromboembolism [facility] Start: 10-05-2024 Care regimes management [facility] Start: 10-05-2024 Consultation for treatment [facility] Start: 10-05-2024 Insertion of catheter into peripheral vein [facility] Start: 10-05-2024 Measuring intake and output [facility] Start: 10-05-2024 Notification of physician [facility] Start: 10-05-2024 Providing care according to standard [facility] Start: 10-05-2024 Referral for physical therapy [facility] Start: 10-05-2024 Referral to occupational therapist [facility] Start: 10-05-2024 Referral to service [facility] Start: 10-05-2024 End: 10-05-2024 [facility] Start: 10-05-2024 Verification routine [facility] Start: 10-05-2024 Admission procedure [facility] Start: 06-18-2024 [facility] Acid fast bacilli culture [facility] Bacteria identified in Unspecified specimen by Anaerobe culture [facility] Fungus identified in Unspecified specimen by Culture [facility] Fungus identified in Unspecified specimen by Fungus stain [facility] Mycobacterium sp catrachita ntified in Unspecified specimen by Organism specific culture [facility] Patient Education [facility] Work Phone: Patient referral [facility] Work Phone: Immunizations Immunization Date Immunization Notes Care Provider Fa cili 02-28-2021 tetanus toxoid, redu milo diphtheria toxoid, and acellular pertussis vaccine, adsorbed ELANA HICKMAN DO [facility] Payers Date Payer Category Payer Medicare [id number] 2024 Unknown [id number] 2023 Medicare [id number] 2023 Self-pay [id number] 2023 Unknown [id number] 2022 Unknown [id number] 2015 Private Health Insurance [id number] 1950 Unknown [id number] 2.16.840.1.193083.3.579.2.6 27 1950 Unknown [id number] 2.16.840.1.216495.3.579.2.6 1950 Unknown [id number] 2.16.840.1.477208.3.579.2.6 1950 Unknown [id number] 2.16.840.1.572529.3.579.2.6 1950 Unknown [id number] 2.16.840.1.082220.3.579.2.6 1950 Unknown [id number] 2.16.840.1.600474.3.579.2.6 27 Private Health Insurance [place] [id number] Unknown [id number] 2.16.840.1.611296.3.579.2.4 62 Unknown [id number] 2.16.840.1.225592.3.579.2.4 62 Unknown [id number] 2.16.840.1.677461.3.579.2.4 62 Unknown [id number] 2.16.840.1.571669.3.579.2.4 62 Unknown [id number] 2.16.840.1.361031.3.579.2.4 62 Unknown [id number] 2.16.840.1.481122.3.579.2.4 62 Unknown [id number] 2.16.840.1.901044.3.579.2.4 62 Unknown [id number] 2.16.840.1.023214.3.579.2.4 62 Unknown [id number] 2.16.840.1.460631.3.579.2.4 62 Unknown [id number] 2.16.840.1.868423.3.579.2.4 62 Unknown [id number] 2.16.840.1.659711.3.579.2.4 62 Unknown [id number] 2.16.840.1.598850.3.579.2.4 62 Unknown [id number] 2.16.840.1.508270.3.579.2.4 62 Unknown [id number] 2.16.840.1.804576.3.579.2.4 62 Unknown [id number] 2.16.840.1.623665.3.579.2.4 62 Unknown [id number] 2.16.840.1.352101.3.579.2.4 62 Unknown [id number] 2.16.840.1.759211.3.579.2.4 62 Social History Date Type Detail Facility Start: 11-12-2018 End: 10-11-2024 Tobacco smoking status Never smoked tobacco (finding) [facility] Start: 1950 Sex Assigned At Male A [facility] Start: 10-28-2022 Tobacco smoking stat [facility] Unknown if ever smoked [facility] Sexual Orientation [facility] Start: 08-08-2018 Sex Male (finding) [facility] Sex Male [facility] Medical Equipment Procedure Code Equipment Code Equipment Origin al Text Equipment Identifier Dates See Instructions , # 100 strip, Refill #: 3 Total Refills: 3, USE 3 TIMES A DAY [id number] Start: 12-06-2018 See Instructions , # 100 strip, Refill #: 3 Total Refills: 3, USE 3 TIMES A DAY [id number] Start: 12-06-2018 See Instructions , 1 bottle of 100. Freestyle Lite. Testing BID. dx: e11.65, # 1 EA, 11 Refill(s), [id number], 179, cm, 08/24/21 11:25:00 EDT, Height, 101.5 Start: 01-21-2022 See Instructions , 1 bottle of 100. Freestyle Lite. Testing BID. dx: e11.65, # 1 EA, 11 Refill(s), [id number], 180.3, cm, 06/14/22 11:34:00 EDT, Height, 99.2, kg, 06/14/22 11:34:00 EDT, Dosing Weight Start: 09-29-2022 See Instructions , 1 bottle of 100. Freestyle Lite. Testing BID. dx: e11.65, # 1 EA, 11 Refill(s), [id number], 180.3, cm, 06/14/22 11:34:00 EDT, Height, 99.2, kg, 06/14/22 11:34:00 EDT, Dosing Weight Start: 09-29-2022 See Instructions , 1 bottle of 100. Freestyle Lite. Testing BID. dx: e11.65, # 1 EA, 11 Refill(s), [id number], 180.3, cm, 06/14/22 11:34:00 EDT, Height, 99.2, kg, 06/14/22 11:34:00 EDT, Dosing Weight Start: 09-29-2022 See Instructions , 1 bottle of 100. Freestyle Lite. Testing BID. dx: e11.65, # 1 EA, 11 Refill(s), Pharmacy: [facility], 177.5, cm, 05/23/23 11:39:00 EDT, Height, 104, kg, 05/23/23 11:39:00 EDT, Dosing Weight Start: 05-29-2023 See Instructions , Insulin Syringes 1cc 31G 5/16in - use ud with insulin Use [facility] [id number], # 100 EA, 3 Refill(s), Pharmacy: [facility], 177.5, cm, 05/23/23 11:39:00 EDT, Height, 104, kg, 05/23/23 11:39:00 EDT, Dosing Weight Start: 10-31-2023 Goals Date Patient Goal Desired Activity /State Functional Status Date Assessment Result Facility 11-12-2024 Functional status Ambulates [facility] Work Phone: 10-11-2024 Functional status Ambulates [facility] Work Phone: 02-03-2023 Functional Status Assistive Leah ce None, Wheelchair [facility] 02-03-2023 Functional Status Repositions self [facility] Mental Status Date Assessment Result Facility 11-12-2024 Cognitive function Voice/Name [facility] Work Phone: 11-10-2024 Cognitive function Appropriate [facility] Work Phone: 10-11-2024 Cognitive function Voice/Name [facility] Work Phone: 02-03-2023 Mental Status Orientation Oriented x 4 [facility] 02-03-2023 Mental Status [facility] 10-25-2022 Mental Status Oriented x 4 [facility] Clinical Notes 10-25-2022 to 11-08-2024 Note Date & Type Note Facility 11-08-2024 Radiology Diagnostic study note [facility] Imaging Services [address], [place] [address] L/S Spine Min 4 Views MR#: [id number] Acct: [id number] Name: AMBROCIO JEFFERS Rep #: [id number] : 1950 M 74 From: Mehul Benson MD PCP: Dr. Elana Hickman, Status: ADM IN Study:L/S Spine Min 4 Views Date of Exam: 11/08/24 Exam# [id number] Ordering Dr: Ion Vega MD PROCEDURE: L/S SPINE MIN 4 VIEWS 11/08/2024 REASON FOR EXAM: LOW BACK PAIN TECHNIQUE: Procedure Code: RADSPLS Modality: DX Procedure: L/S SPINE MIN 4 VIEWS COMPARISON: None. RAD/L/S Spine Min 4 Views IMPRESSION: Prominent arterial calcification is seen, including the abdominal aorta iliac arteries. Thoracolumbar levoscoliosis is seen, centered about the L2 level. Degenerative changes are seen throughout the mid to upper lumbar spine lower thoracic spine. Disc narrowing is greatest at the T12-L1, and especially L1-L2 and L2-L3 levels. Vacuum disc phenomenon is seen at L2-L3. Vertebral body osteophytosis is greatest at L1-L2, anteriorly. No evidence of spondylolysis or significant degree of spondylolisthesis. Also, lumbar posterior facet hypertrophy is evident. Reading Location: [address] CC: Dr. Elana Hickman DO; Dr. Ion Vega MD ~ [place]: Signed [facility] 11-05-2024 Discharge summary Note Date/Time November 05, 2024 9:22pm [facility] Medical Records Department [address] [place] [address] Discharge Summary 11/05/242115 MR#: [id number] Acct: [id number] Name: AMBROCIO JEFFERS Rep #:[id number] : 1950 74 From: Ion Vega MD PCP: Dr. Elana Hickman DO Status:ADM IN Location: [place] [address] Providers Date of Admission: 10/11/24 Primary Care Physician: Dr. 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 EMERGENT Consult: No Notified: Yes Date Notified: 10/11/24 Time Notified: 10:29 Method of Notification: Verbal Comments:: Dr. White notified over weekend 10/13/24 17:45 Consult: Infectious Disease Routine Consulting Provider: Ever Schreiber Reason for Consult: 3rd toe amputation d/t osteomyelitis, manage ATB's EMERGENT Consult: No Notified: Yes Date Notified: 10/13/24 Time Notified: 17:46 Method of Notification: Text 10/17/24 01:32 Consult: Onc/Wound/thread separator Routine Comment: Reason for Consult:: Right heel blister and right medial heel open area. Comments:: Amputation surgical site to right 3rd toe as well Reason For Visit: RIGHT LOWER EXTREMITY CELLULITIS & WEAKNESS Diagnosis Discharge Diagnosis (1) Debility: Status: Acute Code(s): R53.81 - Other malaise (2) Osteomyelitis of third toe of right foot: Status: Acute Code(s): M86.9 - Osteomyelitis, unspecified (3) Acute kidney injury: Status: Acute Code(s): N17.9 - Acute kidney failure, unspecified (4) Parkinson disease: Status: Acute Code(s): G20 - Parkinson's disease (5) Type 2 diabetes mellitus with hyperglycemia: Status: Acute Code(s): E11.65 - Type 2 diabetes mellitus with hyperglycemia (6) Essential (primary) hypertension: Status: Acute Code(s): I10 - Essential (primary) hypertension (7) BPH (benign prostatic hyperplasia): Status: Acute Code(s): N40.0 - Benign prostatic hyperplasia without lower urinary tract symptoms (8) Hyperlipidemia: Status: Acute Code(s): E78.5 - Hyperlipidemia, unspecified (9) Neuropathic pain: Status: Acute Code(s): M79.2 - Neuralgia and neuritis, unspecified Plan 74 year old male with below past medical history hospitalized for 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 Davis, complicated by acute kidney injury, admitted to TCU with debility, here for rehabilitation, strengthening, prior to discharge home with . * Debility - PT/OT. * Cognition - ST. * Pain - Tylenol 1000mg q6 prn pain (1-5), Oxycodone 5mg - 10mg q4 prn pain (6- 10). * Bowel - Miralax 17gm bid, senna/colace 2 tablets bid prn, Magnesium citrate 300mL daily prn. * Adult immunization - Administer pneumonia vaccine, covid vaccine, flu vaccine as appropriate. * DVT prophylaxis - Lovenox 40mg sc daily. * Parkinson Disease - Sinemet 25/250mg 2 tablets bidac. * Vitamin D deficiency - D3 50mcg daily. * Muscle spasm - Flexeril 10mg tid. 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 Davis/Dr. Schreiber. * Diabetes Mellitus II - Jardiance 25mg daily, Glargine 20 units bid. * Diabetic polyneuropathy - Gabapentin 200mg q8. * Hypertension - Propranolol 20mg bid. * Insomnia - Melatonin 10mg qhs. * GERD - Pantoprazole 20mg daily. * Hyperlipidemia - Pravastatin 20mg qhs. * BPH - Tamsulosin 0.4mg daily. * Dry eyes - Artificial tears 2 gtt ou bid prn. Medications at Discharge Home Medications carbidopa 25 mg-levodopa 250 mg tablet 2 tab PO BID parkinsons 03/10/20 tamsulosin 0.4 mg capsule 0.4 mg PO Q24H retention 03/10/20 cholecalciferol (vitamin D3) 50 mcg (2,000 unit) tablet 50 mcg PO DAILY supplement 11/09/22 empagliflozin 25 mg tablet (Jardiance) 25 mg PO DAILY diabetes 11/09/22 pravastatin 20 mg tablet 20 mg PO DAILY cholesterol 11/09/22 cyclobenzaprine 10 mg tablet 10 mg PO TID pain 10/05/24 omeprazole 20 mg capsule,delayed release 20 mg PO DAILY heartburn 10/05/24 propranolol 20 mg tablet 20 mg PO BID blood pressure 10/05/24 insulin glargine-yfgn 100 unit/mL (3 mL) subcutaneous pen 20 unit (0.2 mL) subcut BID Blood sugar #0 mL 10/11/24 acetaminophen 500 mg tablet 1,000 mg (2 x 500 mg) PO Q6H PRN PRN Pain Score 1-5 #0 tabs 11/05/24 gabapentin 100 mg capsule 200 mg (2 x 100 mg) PO Q8 30 days #180 caps 11/05/24 melatonin 10 mg disintegrating tablet 10 mg PO QHS PRN PRN Insomnia #0 tabs 11/05/24 Hospital Course Operations - (See below.) Procedures None Summary of Care Provided Minutes Spent on Discharge: 35 Hospital Course: 74 year old male with below past medical history hospitalized for 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 Davis, complicated by acute kidney injury, admitted to TCU with debility, here for rehabilitation, strengthening, prior to discharge home with . Discharge home with 11/12/2024, [facility] PT/OT/SN. Physical Exam Const alert General Appearance: cooperative HEENT normocephalic Eyes PERRL and EOMs intact bilaterally Neck supple, no JVD and no carotid bruits Resp normal respiratory effort, normal air movement and clear to auscultation bilaterally Cardio regular rate and regular rhythm GI normal to inspection, nondistended, normoactive bowel sounds, non-tender and non-distended Extremity normal capillary refill Extremity Narrative: Right 3rd toe amputation, dressing. General Extremity: Negative for edema Skin no rashes or lesions noted General Skin Exam: no breakdown Psych affect normal Appearance: appropriate Weight / BMI Weight Weight: 104.808 kg Body Mass Index (BMI) 32.2 ABG / Lab / Microbiology Data 11/01/24 07:30 11/01/24 07:30 Laboratory: Laboratory Results - last 24 hr 11/04/24 21:49: POC Glucose 182 H 11/05/24 03:04: POC Glucose 122 H 11/05/24 05:51: POC Glucose 88 11/05/24 16:11: POC Glucose 190 H D/C Instructions Discharge Activity: Return to Normal Activity, May Shower and Use Walker Weight Bearing Status: Weight bearing as tolerated (Right lower extremity.) Call your doctor if you observe: Fever of 101 or Higher, Inability to urinate, Inability to have a bowel movement, Shortness of breath, Dizziness, Fainting spells, Swelling in the ankles, Chest pain and Uncontrolled pain DC O2, CPAP, BIPAP Needs Home O2 Discharge instructions: No Additional Instructions: Discharge home with 11/12/2024, [facility] PT/OT/SN. Meaningful Use Info Meaningful Use Meaningful Use Diagnoses (Choose all that apply): None applicable Discharge Plan Admission Admit Date/Time: 10/11/24 15:07 Primary Reason for Your Visit: Debility. Attending Provider: Ion Vega Chi Primary Care Provider: Elana Hickman Consulting Providers: Ever Schreiber; Elana Dvais Instructions Additional Instructions / Restrictions: Discharge home with 11/12/2024, [facility] PT/OT/SN. Discharge Orders/Prescriptions Prescriptions: New acetaminophen 500 mg Tablet 1,000 mg PO Q6H PRN PRN (Reason: Pain Score 1-5) Qty: 0 0RF gabapentin 100 mg Capsule 200 mg PO Q8 30 Days Qty: 180 0RF melatonin 10 mg Tablet,Disintegrating 10 mg PO QHS PRN PRN (Reason: Insomnia) Qty: 0 0RF Continued carbidopa-levodopa 25-250 mg tablet 2 tab PO BID tamsulosin 0.4 mg capsule 0.4 mg PO Q24H cholecalciferol (vitamin D3) 50 mcg (2,000 unit) tablet 50 mcg PO DAILY Patient Comments: TAKE 1 TABLET BY MOUTH EVERY DAY pravastatin 20 mg tablet 20 mg PO DAILY Patient Comments: TAKE 1 TABLET BY MOUTH EVERY OTHER DAY Jardiance 25 mg tablet 25 mg PO DAILY cyclobenzaprine 10 mg tablet 10 mg PO TID omeprazole 20 mg capsule,delayed release(DR/EC) 20 mg PO DAILY propranolol 20 mg tablet 20 mg PO BID insulin glargine-yfgn 100 unit/mL (3 mL) Insulin Pen 20 unit subcut BID Qty: 0 0RF Discontinued glimepiride 4 mg tablet 4 mg PO DAILY Patient Comments: TAKE 1 TABLET BY MOUTH EVERY DAY lisinopril-hydrochlorothiazide 20-25 mg tablet 1 tab PO DAILY gabapentin 100 mg capsule 100 mg PO Q8H Patient Comments: TAKE 1 CAPSULE BY MOUTH TWICE A DAY acetaminophen 500 mg Tablet 1,000 mg PO Q8 PRN (Reason: pain) Qty: 0 0RF enoxaparin 40 mg/0.4 mL Syringe 40 mg subcut DAILY Qty: 0 0RF insulin lispro [Humalog KwikPen Insulin] 100 unit/mL Insulin Pen See Protocol subcut ACHS Qty: 0 0RF Protocol: 4. Sliding Scale Insulin High-Med Dosing Condition: 150-199 mg/dl = 2 units Condition: 200-259 mg/dl = 4 units Condition: 260-324 mg/dl = 6 units Condition: 325-374 mg/dl = 8 units Condition: 375-409 mg/dl = 10 units Condition: 410-449 mg/dl = 11 units Condition: Greater than 449 call physician Protocol Text: Suggested for: - Patients on Total Daily Insulin Dose of 56-80 units - Patient who are known to be insulin resistant or septic HIGH MEDIUM DOSING ALGORITHM melatonin 3 mg Tablet 3 mg PO QHS PRN PRN (Reason: Insomnia) Qty: 0 0RF oxycodone 5 mg Tablet 5 mg PO Q4H PRN PRN (Reason: Pain Score 1-10) 3 Days Qty: 12 0RF doxycycline monohydrate 100 mg capsule 100 mg PO BID Qty: 14 0RF Referrals / Follow Up: Elana Hickman DO [Primary Care Provider, Family Practice] - Within 1 Week Referral Note: Transition Care Management appointment. Disposition Disposition (needs filled in before D/C Order can be placed): [facility] 11/05/242121 <Electronically signed by Ion Vega MD> Cosigner Signature (if applicable): CC: Dr. Elana Hickman DO; Dr. Ion Vega MD~ Signed [facility] Work Phone: [phone]) 778-106309-23-2025 Discharge summary [facility] Medical Records Department [address] [place] [address] Discharge Summary 11/05/242115 MR#: [id number] Acct: [id number] Name: AMBROCIO JEFFERS Rep #:[id number] : 1950 74 From: Ion Vega MD PCP: Dr. Elana Hickman DO Status:ADM IN Location: [place] [address] Providers Date of Admission: 10/11/24 Primary Care Physician: Dr. 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 EMERGENT Consult: No MD Notified: Yes Date Notified: 10/11/24 Time Notified: 10:29 Method of Notification: Verbal Comments:: Dr. White notified over weekend 10/13/24 17:45 Consult: Infectious Disease Routine Consulting Provider: Ever Schreiber Reason for Consult: 3rd toe amputation d/t osteomyelitis, manage ATB's EMERGENT Consult: No Notified: Yes Date Notified: 10/13/24 Time Notified: 17:46 Method of Notification: Text 10/17/24 01:32 Consult: Onc/Wound/thread separator Routine Comment: Reason for Consult:: Right heel blister and right medial heel open area. Comments:: Amputation surgical site to right 3rd toe as well Reason For Visit: RIGHT LOWER EXTREMITY CELLULITIS & WEAKNESS Diagnosis Discharge Diagnosis (1) Debility: Status: Acute Code(s): R53.81 - Other malaise (2) Osteomyelitis of third toe of right foot: Status: Acute Code(s): M86.9 - Osteomyelitis, unspecified (3) Acute kidney injury: Status: Acute Code(s): N17.9 - Acute kidney failure, unspecified (4) Parkinson disease: Status: Acute Code(s): G20 - Parkinson's disease (5) Type 2 diabetes mellitus with hyperglycemia: Status: Acute Code(s): E11.65 - Type 2 diabetes mellitus with hyperglycemia (6) Essential (primary) hypertension: Status: Acute Code(s): I10 - Essential (primary) hypertension (7) BPH (benign prostatic hyperplasia): Status: Acute Code(s): N40.0 - Benign prostatic hyperplasia without lower urinary tract symptoms (8) Hyperlipidemia: Status: Acute Code(s): E78.5 - Hyperlipidemia, unspecified (9) Neuropathic pain: Status: Acute Code(s): M79.2 - Neuralgia and neuritis, unspecified Plan 74 year old male with below past medical history hospitalized for 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 Davis, complicated by acute kidney injury, admitted to TCU with debility, here for rehabilitation, strengthening, prior to discharge home with . * Debility - PT/OT. * Cognition - ST. * Pain - Tylenol 1000mg q6 prn pain (1-5), Oxycodone 5mg - 10mg q4 prn pain (6- 10). * Bowel - Miralax 17gm bid, senna/colace 2 tablets bid prn, Magnesium citrate 300mL daily prn. * Adult immunization - Administer pneumonia vaccine, covid vaccine, flu vaccine as appropriate. * DVT prophylaxis - Lovenox 40mg sc daily. * Parkinson Disease - Sinemet 25/250mg 2 tablets bidac. * Vitamin D deficiency - D3 50mcg daily. * Muscle spasm - Flexeril 10mg tid. 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 Davis/Dr. Schreiber. * Diabetes Mellitus II - Jardiance 25mg daily, Glargine 20 units bid. * Diabetic polyneuropathy - Gabapentin 200mg q8. * Hypertension - Propranolol 20mg bid. * Insomnia - Melatonin 10mg qhs. * GERD - Pantoprazole 20mg daily. * Hyperlipidemia - Pravastatin 20mg qhs. * BPH - Tamsulosin 0.4mg daily. * Dry eyes - Artificial tears 2 gtt ou bid prn. Medications at Discharge Home Medications carbidopa 25 mg-levodopa 250 mg tablet 2 tab PO BID parkinsons 03/10/20 tamsulosin 0.4 mg capsule 0.4 mg PO Q24H retention 03/10/20 cholecalciferol (vitamin D3) 50 mcg (2,000 unit) tablet 50 mcg PO DAILY supplement 11/09/22 empagliflozin 25 mg tablet (Jardiance) 25 mg PO DAILY diabetes 11/09/22 pravastatin 20 mg tablet 20 mg PO DAILY cholesterol 11/09/22 cyclobenzaprine 10 mg tablet 10 mg PO TID pain 10/05/24 omeprazole 20 mg capsule,delayed release 20 mg PO DAILY heartburn 10/05/24 propranolol 20 mg tablet 20 mg PO BID blood pressure 10/05/24 insulin glargine-yfgn 100 unit/mL (3 mL) subcutaneous pen 20 unit (0.2 mL) subcut BID Blood sugar #0 mL 10/11/24 acetaminophen 500 mg tablet 1,000 mg (2 x 500 mg) PO Q6H PRN PRN Pain Score 1-5 #0 tabs 11/05/24 gabapentin 100 mg capsule 200 mg (2 x 100 mg) PO Q8 30 days #180 caps 11/05/24 melatonin 10 mg disintegrating tablet 10 mg PO QHS PRN PRN Insomnia #0 tabs 11/05/24 Hospital Course Operations - (See below.) Procedures None Summary of Care Provided Minutes Spent on Discharge: 35 Hospital Course: 74 year old male with below past medical history hospitalized for 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 Davis, complicated by acute kidney injury, admitted to TCU with debility, here for rehabilitation, strengthening, prior to discharge home with . Discharge home with 11/12/2024, [facility] PT/OT/SN. Physical Exam Const alert General Appearance: cooperative HEENT normocephalic Eyes PERRL and EOMs intact bilaterally Neck supple, no JVD and no carotid bruits Resp normal respiratory effort, normal air movement and clear to auscultation bilaterally Cardio regular rate and regular rhythm GI normal to inspection, nondistended, normoactive bowel sounds, non-tender and non-distended Extremity normal capillary refill Extremity Narrative: Right 3rd toe amputation, dressing. General Extremity: Negative for edema Skin no rashes or lesions noted General Skin Exam: no breakdown Psych affect normal Appearance: appropriate Weight / BMI Weight Weight: 104.808 kg Body Mass Index (BMI) 32.2 ABG / Lab / Microbiology Data 11/01/24 07:30 11/01/24 07:30 Laboratory: Laboratory Results - last 24 hr 11/04/24 21:49: POC Glucose 182 H 11/05/24 03:04: POC Glucose 122 H 11/05/24 05:51: POC Glucose 88 11/05/24 16:11: POC Glucose 190 H D/C Instructions Discharge Activity: Return to Normal Activity, May Shower and Use Walker Weight Bearing Status: Weight bearing as tolerated (Right lower extremity.) Call your doctor if you observe: Fever of 101 or Higher, Inability to urinate, Inability to have a bowel movement, Shortness of breath, Dizziness, Fainting spells, Swelling in the ankles, Chest pain and Uncontrolled pain DC O2, CPAP, BIPAP Needs Home O2 Discharge instructions: No Additional Instructions: Discharge home with 11/12/2024, [facility] PT/OT/SN. Meaningful Use Info Meaningful Use Meaningful Use Diagnoses (Choose all that apply): None applicable Discharge Plan Admission Admit Date/Time: 10/11/24 15:07 Primary Reason for Your Visit: Debility. Attending Provider: Ion Vega Chi Primary Care Provider: Elana Hickman Consulting Providers: Ever Schreiber; Elana Davis Instructions Additional Instructions / Restrictions: Discharge home with 11/12/2024, [facility] PT/OT/SN. Discharge Orders/Prescriptions Prescriptions: New acetaminophen 500 mg Tablet 1,000 mg PO Q6H PRN PRN (Reason: Pain Score 1-5) Qty: 0 0RF gabapentin 100 mg Capsule 200 mg PO Q8 30 Days Qty: 180 0RF melatonin 10 mg Tablet,Disintegrating 10 mg PO QHS PRN PRN (Reason: Insomnia) Qty: 0 0RF Continued carbidopa-levodopa 25-250 mg tablet 2 tab PO BID tamsulosin 0.4 mg capsule 0.4 mg PO Q24H cholecalciferol (vitamin D3) 50 mcg (2,000 unit) tablet 50 mcg PO DAILY Patient Comments: TAKE 1 TABLET BY MOUTH EVERY DAY pravastatin 20 mg tablet 20 mg PO DAILY Patient Comments: TAKE 1 TABLET BY MOUTH EVERY OTHER DAY Jardiance 25 mg tablet 25 mg PO DAILY cyclobenzaprine 10 mg tablet 10 mg PO TID omeprazole 20 mg capsule,delayed release(DR/EC) 20 mg PO DAILY propranolol 20 mg tablet 20 mg PO BID insulin glargine-yfgn 100 unit/mL (3 mL) Insulin Pen 20 unit subcut BID Qty: 0 0RF Discontinued glimepiride 4 mg tablet 4 mg PO DAILY Patient Comments: TAKE 1 TABLET BY MOUTH EVERY DAY lisinopril-hydrochlorothiazide 20-25 mg tablet 1 tab PO DAILY gabapentin 100 mg capsule 100 mg PO Q8H Patient Comments: TAKE 1 CAPSULE BY MOUTH TWICE A DAY acetaminophen 500 mg Tablet 1,000 mg PO Q8 PRN (Reason: pain) Qty: 0 0RF enoxaparin 40 mg/0.4 mL Syringe 40 mg subcut DAILY Qty: 0 0RF insulin lispro [Humalog KwikPen Insulin] 100 unit/mL Insulin Pen See Protocol subcut ACHS Qty: 0 0RF Protocol: 4. Sliding Scale Insulin High-Med Dosing Condition: 150-199 mg/dl = 2 units Condition: 200-259 mg/dl = 4 units Condition: 260-324 mg/dl = 6 units Condition: 325-374 mg/dl = 8 units Condition: 375-409 mg/dl = 10 units Condition: 410-449 mg/dl = 11 units Condition: Greater than 449 call physician Protocol Text: Suggested for: - Patients on Total Daily Insulin Dose of 56-80 units - Patient who are known to be insulin resistant or septic HIGH MEDIUM DOSING ALGORITHM melatonin 3 mg Tablet 3 mg PO QHS PRN PRN (Reason: Insomnia) Qty: 0 0RF oxycodone 5 mg Tablet 5 mg PO Q4H PRN PRN (Reason: Pain Score 1-10) 3 Days Qty: 12 0RF doxycycline monohydrate 100 mg capsule 100 mg PO BID Qty: 14 0RF Referrals / Follow Up: Elana Hickman DO [Primary Care Provider, Family Practice] - Within 1 Week Referral Note: Transition Care Management appointment. Disposition Disposition (needs filled in before D/C Order can be placed): Home Health Service 11/05/242121 Cosigner Signature (if applicable): CC: Dr. Elana Hickman DO; Dr. Ion Vega MD~ Signed [facility]09-23-2025 [facility]09-22-2025 Progress note Author Ion Gary [facility] Note Date/Time November 04, 2024 3:54pm [facility] Medical Records Department [address] [place] [address] Progress Note - TCU 11/04/24 1550 MR#: [id number] Acct: [id number] Name: AMBROCIO JEFFERS Rep #:[id number] : 1950 74 From: Ion Vega MD PCP: Dr. Elana Hickman, DO Status:ADM IN Location: [place] [address] Subjective Subjective Resident seen, examined for regulatory visit. He is feeling well, sitting in recliner watching television. He has no new problems, concerns, issues, complaints. Objective Data Objective Data Vital Signs: Vital Signs Temp Pulse Resp BP Pulse Ox O2 Del Method O2 Flow Rate 97.6 F L 91 16 152/89 H 96 Room Air 3 11/04/24 11:02 11/04/24 11:02 11/04/24 11:02 11/04/24 11:02 11/04/24 11:02 11/04/24 11:02 10/31/24 15:35 Oxygen Flow Rate (L/min) 3 Oxygen Delivery Method Room Air Weight: 107.184 kg Body Mass Index (BMI) 32.9 Intake & Output: Intake and Output for Last 24 Hours 11/02/24 11/03/24 11/04/24 23:59 23:59 23:59 Intake Total 601 / 601 720 / 720 820 / 820 Balance 601 / 601 720 / 720 820 / 820 Lab / Micro Data 11/01/24 07:30 11/01/24 07:30 Labs: Laboratory Results - last 24 hr 11/03/24 21:25: POC Glucose 194 H 11/04/24 01:47: POC Glucose 149 H 11/04/24 06:17: POC Glucose 149 H Physical Exam Const alert General Appearance: cooperative HEENT normocephalic Eyes PERRL and EOMs intact bilaterally Neck supple, no JVD and no carotid bruits Resp normal respiratory effort, normal air movement and clear to auscultation bilaterally Cardio regular rate and regular rhythm GI normal to inspection, nondistended, normoactive bowel sounds, non-tender and non-distended Extremity normal capillary refill Extremity Narrative: Right 3rd toe amputation, dressing. 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 Davis, complicated by acute kidney injury, admitted to TCU with debility, here for rehabilitation, strengthening, prior to discharge home with . * Debility - PT/OT. * Cognition - ST. * Pain - Tylenol 1000mg q6 prn pain (1-5), Oxycodone 5mg - 10mg q4 prn pain (6- 10). * Bowel - Miralax 17gm bid, senna/colace 2 tablets bid prn, Magnesium citrate 300mL daily prn. * Adult immunization - Administer pneumonia vaccine, covid vaccine, flu vaccine as appropriate. * DVT prophylaxis - Lovenox 40mg sc daily. * Parkinson Disease - Sinemet 25/250mg 2 tablets bidac. * Vitamin D deficiency - D3 50mcg daily. * Muscle spasm - Flexeril 10mg tid. 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 Davis/Dr. Schreiber. * Diabetes Mellitus II - Jardiance 25mg daily, Glargine 20 units bid. * Diabetic polyneuropathy - Gabapentin 200mg q8. * Hypertension - Propranolol 20mg bid. * Insomnia - Melatonin 10mg qhs. * GERD - Pantoprazole 20mg daily. * Hyperlipidemia - Pravastatin 20mg qhs. * BPH - Tamsulosin 0.4mg daily. * Dry eyes - Artificial tears 2 gtt ou bid prn. 11/04/24 3821 <Electronically signed by Ion Vega MD> Cosigner Signature (if applicable): CC: ~ Signed [facility] Work Phone: 1(617) 710-544609-22-2025 Progress note [facility] Medical Records Department [address] [place] [address] Progress Note - [facility] 11/04/24 1550 MR#: [id number] Acct: [id number] Name: AMBROCIO JEFFERS Rep #:[id number] : 1950 74 From: Ion Vega MD PCP: Dr. Elana Hickman, DO Status:ADM IN Location: [facility] TCU16-1 Subjective Subjective Resident seen, examined for regulatory visit. He is feeling well, sitting in recliner watching television. He has no new problems, concerns, issues, complaints. Objective Data Objective Data Vital Signs: Vital Signs Temp Pulse Resp BP Pulse Ox O2 Del Method O2 Flow Rate 97.6 F L 91 16 152/89 H 96 Room Air 3 11/04/24 11:02 11/04/24 11:02 11/04/24 11:02 11/04/24 11:02 11/04/24 11:02 11/04/24 11:02 10/31/24 15:35 Oxygen Flow Rate (L/min) 3 Oxygen Delivery Method Room Air Weight: 107.184 kg Body Mass Index (BMI) 32.9 Intake & Output: Intake and Output for Last 24 Hours 11/02/24 11/03/24 11/04/24 23:59 23:59 23:59 Intake Total 601 / 601 720 / 720 820 / 820 Balance 601 / 601 720 / 720 820 / 820 Lab / Micro Data 11/01/24 07:30 11/01/24 07:30 Labs: Laboratory Results - last 24 hr 11/03/24 21:25: POC Glucose 194 H 11/04/24 01:47: POC Glucose 149 H 11/04/24 06:17: POC Glucose 149 H Physical Exam Const alert General Appearance: cooperative HEENT normocephalic Eyes PERRL and EOMs intact bilaterally Neck supple, no JVD and no carotid bruits Resp normal respiratory effort, normal air movement and clear to auscultation bilaterally Cardio regular rate and regular rhythm GI normal to inspection, nondistended, normoactive bowel sounds, non-tender and non-distended Extremity normal capillary refill Extremity Narrative: Right 3rd toe amputation, dressing. 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 Davis, complicated by acute kidney injury, admitted to TCU with debility, here for rehabilitation, strengthening, prior to discharge home with . * Debility - PT/OT. * Cognition - ST. * Pain - Tylenol 1000mg q6 prn pain (1-5), Oxycodone 5mg - 10mg q4 prn pain (6- 10). * Bowel - Miralax 17gm bid, senna/colace 2 tablets bid prn, Magnesium citrate 300mL daily prn. * Adult immunization - Administer pneumonia vaccine, covid vaccine, flu vaccine as appropriate. * DVT prophylaxis - Lovenox 40mg sc daily. * Parkinson Disease - Sinemet 25/250mg 2 tablets bidac. * Vitamin D deficiency - D3 50mcg daily. * Muscle spasm - Flexeril 10mg tid. 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 Davis/Dr. Schreiber. * Diabetes Mellitus II - Jardiance 25mg daily, Glargine 20 units bid. * Diabetic polyneuropathy - Gabapentin 200mg q8. * Hypertension - Propranolol 20mg bid. * Insomnia - Melatonin 10mg qhs. * GERD - Pantoprazole 20mg daily. * Hyperlipidemia - Pravastatin 20mg qhs. * BPH - Tamsulosin 0.4mg daily. * Dry eyes - Artificial tears 2 gtt ou bid prn. 11/04/24 8754 Cosigner Signature (if applicable): CC: ~ Signed [facility]09-18-2025 Progress note Author Elana Davis [facility] Note Date/Time October 31, 2024 1:36pm [facility] Medical Records Department [address] [place] [address] Progress Note 10/31/24 1332 MR#: [id number] Acct: [id number] Name: AURYAMBROCIO G Rep #:[id number] : 1950 74 From: Elana sesay DPM PCP: Dr. Elana Hickman, DO Status:ADM IN Location: [place] [id number] Subjective Subjective Patient seen this afternoon resting in Elda chair at bedside with feet elevated. He was sleeping when I entered the room. Upon waking him he stated that he wasa little tired as therapy had worked him pretty hard today. States overall he does feel good however still has some swelling and tenderness of the ankle but it has been improving. Denies constitutional symptoms. Denies further complaints. Objective Data Objective Data Vital Signs: Vital Signs Temp Pulse Resp BP Pulse Ox O2 Del Method 98.1 F 91 17 129/79 H 94 Room Air 10/31/24 10:50 10/31/24 10:50 10/31/24 10:50 10/31/24 10:50 10/31/24 10:50 10/31/24 10:50 Oxygen Delivery Method Room Air Weight: 107.184 kg Body Mass Index (BMI) 32.9 Intake & Output: Intake and Output for Last 24 Hours 10/29/24 10/30/24 10/31/24 23:59 23:59 23:59 Intake Total 1260 / 1260 840 / 840 870 / 870 Output Total 650 / 650 Balance 610 / 610 840 / 840 870 / 870 Lab / Micro Data 10/31/24 07:31 10/31/24 07:31 Labs: Laboratory Results - last 24 hr 10/30/24 21:24: POC Glucose 140 H 10/30/24 22:28: POC Glucose 130 H 10/31/24 05:55: POC Glucose 181 H 10/31/24 07:31: WBC 5.8, RBC 4.71, Hgb 14.3, Hct 42.4, MCV 90.0, MCH 30.4, MCHC 33.7, RDW Std Deviation 40.1, RDW Coeff of Brant 12.2, Plt Count 243, MPV 10.4, Immature Gran % (Auto) 0.700, Neut % (Auto) 63.9, Lymph % (Auto) 17.4 L, Sanborn % (Auto) 9.3, Eos % (Auto) 8.4 H, Baso % (Auto) 0.3, Absolute Neuts (auto) 3.7, Absolute Lymphs (auto) 1.01, Nucleated RBC % 0, Sodium 142, Potassium 4.0, Chloride 106, Carbon Dioxide 26.2, Anion Gap 11, BUN 31 H, Creatinine 1.05, Estim Creat Clear Calc 78.04, Est GFR (MDRD) Non-Af 75, BUN/Creatinine Ratio 29.2 H, Glucose 136 H, Calcium 9.1 Physical Exam Const alert, oriented x3 and no apparent distress General Appearance: cooperative HEENT normocephalic Eyes Eyes Narrative: Wears glasses General Eye: normal appearance of both eyes Neck General: normal visual inspection Lymph Lymphatic: no lymphadenopathy noted and no lymphedema noted Resp normal respiratory effort Cardio regular rate and regular rhythm Extremity no calf tenderness Extremity Narrative: Bilateral lower extremity: Vascular: DP and PT pulses weakly palpable. CFT less than 5 seconds to the digits. Normal temperature gradient. Hair growth is diminished to digits and foot Neurologic: Gross sensation is intact. Protective sensation is diminished secondary to diabetic peripheral polyneuropathy Musculoskeletal: Third digit amputation of the right foot noted. Negative Prattsign, negative Homans' sign. Pain to palpation about the lateral ankle, anterior ankle, and medial ankle right lower extremity. Dermatological: There is resolution of erythema about the ankle to just above the ankle mortise/distal tibia right lower extremity. This had receded and resolved from the previous line of demarcation consistent with resolving cellulitis. Third digit amputation of the right foot is appreciated with intactsutures overlying the amputation site. There is no surrounding erythema of the digit or foot, no purulent drainage from the digit site, no foul odor noted. Nopain to palpation about the surgical site. Edema about the ankle is much improved. 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 Did have repeat radiographs obtained 10/19/2024 which were negative for acute osseous pathology. Findings were discussed with patient at bedside. Sutures intact third digit amputation stump. No signs of infection. Some edemaabout his ankle with tenderness, both of which are improving. Tenderness about his ankle improved following adjustment of nerve medications and continued elevation. Sutures removed today atraumatically Dressing changed 10/31/24 by wound nurse and myself consisting of Betadine over incision site, 4 x 4 gauze, Kerlix, ABD, and 4 inch Louis wrap rolled onto the foot. Additional padding of ABD was placed posterior to the Achilles where he has developed a small pressure ulceration of unknown cause. May remove dressingto the forefoot in 48 hours but continue to pad and protect the posterior Achilles. The pressure ulceration of the posterior Achilles is likely to be secondary to rubbing in his surgical shoe. On 10/05/2024 ESR noted to be elevated at 251 and ESR at 37 MRI was obtained 10/07/2024 demonstrating likely osteomyelitis of the remaining osseous structures of the middle and distal phalanx of the third digit of the right foot. I have reviewed imaging osteomyelitis is questionable however givenconcern over any recurrence and for definitive treatment patient is agreeable toamputation of the third digit. Wound Culture did demonstrate MSRA Surgical cultures obtained 10/10/2024: Tissue third digit to micro, demonstrates MSSA, Serratia, MRSE; distal phalanx bone third digit to micro, MSSA and Serratia; base of the proximal phalanx third digit to pathology, demonstrates chronic osteomyelitis with marrow edema. Finished all oral antibiotic per ID management. Medicine team following for medical management, they are greatly appreciated. Infectious disease following for antibiotic management Wound nurse following for assistance in dressing changes Patient is to continue to elevate the right foot at all times rest for postoperative edema control May apply ice behind the right knee for postoperative pain control He is to keep all dressings clean, dry, and intact to the right foot for next 48hours after which may discontinue dressings to his forefoot He may continue ambulation in a protected weightbearing status utilizing his surgical shoe to the right foot. This will aid in decreasing fall due to his Parkinson's. May continue working with therapy to increase strength and rehabilitation prior to his discharge home Following improvement of the posterior Achilles pressure ulceration he may return to regular shoe gear Will continue to follow while in TCU weekly. Reach out to Dr. Davis for any questions or concerns. Jr. Harpreet Watson.P.M. [facility] [phone] 10/31/24 1336 <Electronically signed by Elana Davis DPM> Elana Cheema Cosigner Signature (if applicable): CC: ~ Signed [facility] Work Phone: 1(655) 908-532509-18-2025 Progress note [facility] Medical Records Department [address] [place] [address] Progress Note 10/31/24 1332 MR#: [id number] Acct: [id number] Name: AMBROCIO JEFFERS Rep #:[id number] : 1950 74 From: Elana sesay DPM PCP: Dr. Elana Hickman, DO Status:ADM IN Location: [place] [address]-1 Subjective Subjective Patient seen this afternoon resting in Elda chair at bedside with feet elevated. He was sleeping when I entered the room. Upon waking him he stated that he wasa little tired as therapy had worked himpretty hard today. States overall he does feel good however still has some swelling and tenderness of the ankle but it has been improving. Denies constitutional symptoms. Denies further complaints. Objective Data Objective Data Vital Signs: Vital Signs Temp Pulse Resp BP Pulse Ox O2 Del Method 98.1 F 91 17 129/79 H 94 Room Air 10/31/24 10:50 10/31/24 10:50 10/31/24 10:50 10/31/24 10:50 10/31/24 10:50 10/31/24 10:50 Oxygen Delivery Method Room Air Weight: 107.184 kg Body Mass Index (BMI) 32.9 Intake & Output: Intake and Output for Last 24 Hours 10/29/24 10/30/24 10/31/24 23:59 23:59 23:59 Intake Total 1260 / 1260 840 / 840 870 / 870 Output Total 650 / 650 Balance 610 / 610 840 / 840 870 / 870 Lab / Micro Data 10/31/24 07:31 10/31/24 07:31 Labs: Laboratory Results - last 24 hr 10/30/24 21:24: POC Glucose 140 H 10/30/24 22:28: POC Glucose 130 H 10/31/24 05:55: POC Glucose 181 H 10/31/24 07:31: WBC 5.8, RBC 4.71, Hgb 14.3, Hct 42.4, MCV 90.0, MCH 30.4, MCHC 33.7, RDW Std Deviation 40.1, RDW Coeff of Brant 12.2, Plt Count 243, MPV 10.4, Immature Gran % (Auto) 0.700, Neut % (Auto) 63.9, Lymph % (Auto) 17.4 L, Sanborn % (Auto) 9.3, Eos % (Auto) 8.4 H, Baso % (Auto) 0.3, Absolute Neuts (auto) 3.7, Absolute Lymphs (auto) 1.01, Nucleated RBC % 0, Sodium 142, Potassium 4.0, [id number], Carbon Dioxide 26.2, Anion Gap 11, BUN 31 H, Creatinine 1.05, Estim Creat Clear Calc 78.04, Est GFR (MDRD) Non-Af 75, BUN/Creatinine Ratio 29.2 H, Glucose 136 H, Calcium 9.1 Physical Exam Const alert, oriented x3 and no apparent distress General Appearance: cooperative HEENT normocephalic Eyes Eyes Narrative: Wears glasses General Eye: normal appearance of both eyes Neck General: normal visual inspection Lymph Lymphatic: no lymphadenopathy noted and no lymphedema noted Resp normal respiratory effort Cardio regular rate and regular rhythm Extremity no calf tenderness Extremity Narrative: Bilateral lower extremity: Vascular: DP and PT pulses weakly palpable. CFT less than 5 seconds to the digits. Normal temperature gradient. Hair growth is diminished to digits and foot Neurologic: Gross sensation is intact. Protective sensation is diminished secondary to diabetic peripheral polyneuropathy Musculoskeletal: Third digit amputation of the right foot noted. Negative Prattsign, negative Homans' sign. Pain to palpation about the lateral ankle, anterior ankle, and medial ankle right lower extremity. Dermatological: There is resolution of erythema about the ankle to just above the ankle mortise/distal tibia right lower extremity. This had receded and resolved from the previous line of demarcationconsistent with resolving cellulitis. Third digit amputation of the right foot is appreciated with i ntactsutures overlying the amputation site. There is no surrounding erythema of the digit or foot, no purulent drainage from the digit site, no foul odor noted. Nopain to palpation about the surgicalsite. Edema about the ankle is much improved. 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 Did have repeat radiographs obtained 10/19/2024 which were negative for acute osseous pathology. Findings were discussed with patient at bedside. Sutures intact third digit amputation stump. No signs of infection. Some edemaabout his ankle with tenderness, both of which are improving. Tenderness about his ankle improved following adjustment ofnerve medications and continued elevation. Sutures removed today atraumatically Dressing changed 10/31/24 by wound nurse and myself consisting of Betadine over incision site, 4 x 4gauze, Kerlix, ABD, and 4 inch Louis wrap rolled onto the foot. Additional padding of ABD was placed posterior to the Achilles where he has developed a small pressure ulceration of unknown cause. May remove dressingto the forefoot in 48 hours but continue to pad and protect the posterior Achilles. The pressure ulceration of the posterior Achilles is likely to be secondary to rubbing in his surgical shoe. On 10/05/2024 ESR noted to be elevated at 251 and ESR at 37 MRI was obtained 10/07/2024 demonstrating likely osteomyelitis of the remaining osseous structures of the middle and distal phalanx of the third digit of the right foot. I have reviewed imaging osteomyelitis is questionable however givenconcern over any recurrence and for definitive treatment patient is agreeable toamputation of the third digit. Wound Culture did demonstrate MSRA Surgical cultures obtained 10/10/2024: Tissue third digit to micro, demonstrates MSSA, Serratia, MRSE; distal phalanx bone third digit to micro, MSSA and Serratia; base of the proximal phalanx third digit to pathology, demonstrates chronic osteomyelitis with marrow edema. Finished all oral antibiotic per ID management. Medicine team following for medical management, they are greatly appreciated. Infectious disease following for antibiotic management Wound nurse following for assistance in dressing changes Patient is to continue to elevate the right foot at all times rest for postoperative edema control May apply ice behind the right knee for postoperative pain control He is to keep all dressings clean, dry, and intact to the right foot for next 48hours after which may discontinue dressings to his forefoot He may continue ambulation in a protected weightbearing status utilizing his surgical shoe to the right foot. This will aid in decreasing fall due to his Parkinson's. May continue working with therapy to increase strength and rehabilitation prior to his discharge home Following improvement of the posterior Achilles pressure ulceration he may return to regular shoe gear Will continue to follow while in TCU weekly. Reach out to Dr. Davis for any questions or concerns. Elana Davis Jr. D.P.M. [facility] [phone] 10/31/24 1336 Elana Cheema Cosigner Signature (if applicable): CC: ~ Signed [facility]09-12-2025 Progress note Author Elana Davis [facility] Note Date/Time October 25, 2024 5:16pm [facility] Medical Records Department [address] [place] [address] Progress Note 10/25/24 1712 MR#: [id number] Acct: [id number] Name: AMBROCIO JEFFERS Rep #:[id number] : 1950 74 From: Elana sesay DPM PCP: Dr. Elana Hickman, DO Status:ADM IN Location: TCU [facility] Subjective Subjective Patient seen resting in Elda chair at bedside with feet elevated. Reports the dressings were changed earlier by the wound care nurse. States that his ankle pain is improving following adjustment of the nerve medication. Denies constitutional symptoms. Denies further complaints. Objective Data Objective Data Vital Signs: Vital Signs Temp Pulse Resp BP Pulse Ox O2 Del Method 96.7 F L 78 18 108/74 96 Room Air 10/25/24 09:49 10/25/24 09:49 10/25/24 09:49 10/25/24 09:49 10/25/24 09:49 10/25/24 09:49 Oxygen Delivery Method Room Air Weight: 106.594 kg Body Mass Index (BMI) 32.8 Intake & Output: Intake and Output for Last 24 Hours 10/23/24 10/24/24 10/25/24 23:59 23:59 23:59 Intake Total 1120 / 1120 702 / 702 680 / 680 Output Total 200 / 200 Balance 920 / 920 702 / 702 680 / 680 Lab / Micro Data 10/12/24 05:59 10/12/24 05:59 Labs: Laboratory Results - last 24 hr 10/24/24 16:46: POC Glucose 194 H 10/24/24 21:15: POC Glucose 174 H 10/25/24 06:09: POC Glucose 122 H 10/25/24 11:22: POC Glucose 178 H 10/25/24 16:10: POC Glucose 184 H Physical Exam Const alert, oriented x3 and no apparent distress General Appearance: cooperative HEENT normocephalic Eyes Eyes Narrative: Wears glasses General Eye: normal appearance of both eyes Neck General: normal visual inspection Lymph Lymphatic: no lymphadenopathy noted and no lymphedema noted Resp normal respiratory effort Cardio regular rate and regular rhythm Extremity no calf tenderness Extremity Narrative: Bilateral lower extremity: Vascular: DP and PT pulses weakly palpable. CFT less than 5 seconds to the digits. Normal temperature gradient. Hair growth is diminished to digits and foot Neurologic: Gross sensation is intact. Protective sensation is diminished secondary to diabetic peripheral polyneuropathy Musculoskeletal: Third digit amputation of the right foot noted. Negative Prattsign, negative Homans' sign. Pain to palpation about the lateral ankle, anterior ankle, and medial ankle right lower extremity. Dermatological: There is resolution of erythema about the ankle to just above the ankle mortise/distal tibia right lower extremity. This had receded and resolved from the previous line of demarcation consistent with resolving cellulitis. Third digit amputation of the right foot is appreciated with intactsutures overlying the amputation site. There is no surrounding erythema of the digit or foot, no purulent drainage from the digit site, no foul odor noted. Nopain to palpation about the surgical site. Edema about the ankle is much improved. 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 Did have repeat radiographs obtained 10/19/2024 which were negative for acute osseous pathology. Findings were discussed with patient at bedside. Sutures intact third digit amputation stump. Erythema about the ankle has resolved in addition to continued improvement in swelling. Tenderness is improving about his ankle following adjustment of nerve medications and continued elevation. Dressing changed 10/28/24 by wound nurse consisting of Betadine soaked Adaptic, 4x 4 gauze, Kerlix, ABD, and 4 inch Louis wrap rolled onto the foot. Nursing may continue to change dressing every 3 days On 10/05/2024 ESR noted to be elevated at 251 and ESR at 37 MRI was obtained 10/07/2024 demonstrating likely osteomyelitis of the remaining osseous structures of the middle and distal phalanx of the third digit of the right foot. I have reviewed imaging osteomyelitis is questionable however givenconcern over any recurrence and for definitive treatment patient is agreeable toamputation of the third digit. Wound Culture did demonstrate MSRA Surgical cultures obtained 10/10/2024: Tissue third digit to micro, demonstrates MSSA, Serratia, MRSE; distal phalanx bone third digit to micro, MSSA and Serratia; base of the proximal phalanx third digit to pathology, demonstrates chronic osteomyelitis with marrow edema. Currently on oral doxycycline and Levaquin for 7 days per ID management Medicine team following for medical management, they are greatly appreciated. Infectious disease following for antibiotic management Wound nurse following for assistance in dressing changes Patient is to continue to elevate the right foot at all times rest for postoperative edema control May apply ice behind the right knee for postoperative pain control He is to keep all dressings clean, dry, and intact to the right foot He may continue ambulation in a protected weightbearing status utilizing his surgical shoe to the right foot. This will aid in decreasing fall due to his Parkinson's. May continue working with therapy to increase strength and rehabilitation prior to his discharge home Discussed with the patient expected suture removal in 1 week Will continue to follow while in TCU weekly. Reach out to Dr. Davis for any questions or concerns. Jr. Crow WatsonP.M. [facility] [place] [phone] 10/25/24 5815 <Electronically signed by Elana Davis DPM> Elana Cheema Cosigner Signature (if applicable): CC: ~ Signed [facility] Work Phone: 1(145) 181-725509-12-2025 Progress note [facility] Medical Records Department [address] [place] [address] Progress Note 10/25/24 1712 MR#: [id number] Acct: [id number] Name: AMBROCIO JEFFERS Rep #:[id number] : 1950 74 From: Elana sesay DPM PCP: Dr. Elana Hickman, DO Status:ADM IN Location: [place] [address]-1 Subjective Subjective Patient seen resting in Elda chair at bedside with feet elevated. Reports the dressings were changed earlier by the wound care nurse. States that his ankle pain is improving following adjustment of the nerve medication. Denies constitutional symptoms. Denies further complaints. Objective Data Objective Data Vital Signs: Vital Signs Temp Pulse Resp BP Pulse Ox O2 Del Method 96.7 F L 78 18 108/74 96 Room Air 10/25/24 09:49 10/25/24 09:49 10/25/24 09:49 10/25/24 09:49 10/25/24 09:49 10/25/24 09:49 Oxygen Delivery Method Room Air Weight: 106.594 kg Body Mass Index (BMI) 32.8 Intake & Output: Intake and Output for Last 24 Hours 10/23/24 10/24/24 10/25/24 23:59 23:59 23:59 Intake Total 1120 / 1120 702 / 702 680 / 680 Output Total 200 / 200 Balance 920 / 920 702 / 702 680 / 680 Lab / Micro Data 10/12/24 05:59 10/12/24 05:59 Labs: Laboratory Results - last 24 hr 10/24/24 16:46: POC Glucose 194 H 10/24/24 21:15: POC Glucose 174 H 10/25/24 06:09: POC Glucose 122 H 10/25/24 11:22: POC Glucose 178 H 10/25/24 16:10: POC Glucose 184 H Physical Exam Const alert, oriented x3 and no apparent distress General Appearance: cooperative HEENT normocephalic Eyes Eyes Narrative: Wears glasses General Eye: normal appearance of both eyes Neck General: normal visual inspection Lymph Lymphatic: no lymphadenopathy noted and no lymphedema noted Resp normal respiratory effort Cardio regular rate and regular rhythm Extremity no calf tenderness Extremity Narrative: Bilateral lower extremity: Vascular: DP and PT pulses weakly palpable. CFT less than 5 seconds to the digits. Normal temperature gradient. Hair growth is diminished to digits and foot Neurologic: Gross sensation is intact. Protective sensation is diminished secondary to diabetic peripheral polyneuropathy Musculoskeletal: Third digit amputation of the right foot noted. Negative Prattsign, negative Homans' sign. Pain to palpation about the lateral ankle, anterior ankle, and medial ankle right lower extremity. Dermatological: There is resolution of erythema about the ankle to just above the ankle mortise/distal tibia right lower extremity. This had receded and resolved from the previous line of demarcationconsistent with resolving cellulitis. Third digit amputation of the right foot is appreciated with i ntactsutures overlying the amputation site. There is no surrounding erythema of the digit or foot, no purulent drainage from the digit site, no foul odor noted. Nopain to palpation about the surgicalsite. Edema about the ankle is much improved. 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 Did have repeat radiographs obtained 10/19/2024 which were negative for acute osseous pathology. Findings were discussed with patient at bedside. Sutures intact third digit amputation stump. Erythema about the ankle has resolved in addition to continued improvement in swelling. Tenderness is improving about his ankle following adjustment of nerve medications and continued elevation. Dressing changed 10/28/24 by wound nurse consisting of Betadine soaked Adaptic, 4x 4 gauze, Kerlix, ABD, and 4 inch Louis wrap rolled onto the foot. Nursing may continue to change dressing every 3 days On 10/05/2024 ESR noted to be elevated at 251 and ESR at 37 MRI was obtained 10/07/2024 demonstrating likely osteomyelitis of the remaining osseous structures of the middle and distal phalanx of the third digit of the right foot. I have reviewed imaging osteomyelitis is questionable however givenconcern over any recurrence and for definitive treatment patient is agreeable toamputation of the third digit. Wound Culture did demonstrate MSRA Surgical cultures obtained 10/10/2024: Tissue third digit to micro, demonstrates MSSA, Serratia, MRSE; distal phalanx bone third digit to micro, MSSA and Serratia; base of the proximal phalanx third digit to pathology, demonstrates chronic osteomyelitis with marrow edema. Currently on oral doxycycline and Levaquin for 7 days per ID management Medicine team following for medical management, they are greatly appreciated. Infectious disease following for antibiotic management Wound nurse following for assistance in dressing changes Patient is to continue to elevate the right foot at all times rest for postoperative edema control May apply ice behind the right knee for postoperative pain control He is to keep all dressings clean, dry, and intact to the right foot He may continue ambulation in a protected weightbearing status utilizing his surgical shoe to the right foot. This will aid in decreasing fall due to his Parkinson's. May continue working with therapy to increase strength and rehabilitation prior to his discharge home Discussed with the patient expected suture removal in 1 week Will continue to follow while in TCU weekly. Reach out to Dr. Davis for any questions or concerns. Jr. Crow WatsonP.M. [facility] [place] [phone] 10/25/24 1716 Elana DavisMauro Cosigner Signature (if applicable): CC: ~ Signed [facility]09-05-2025 Consult note Author Elana Davis [facility] Note Date/Time October 18, 2024 3:09pm [facility] Medical Records Department [address] [place] [address] Consultation 10/18/24 1450 MR#: [id number] Acct: [id number] Name: AMBROCIO JEFFERS Rep #:[id number] : 1950 74 From: Elana sesay DPM PCP: Dr. Elana Hickman, DO Status:ADM IN Location: 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 Sutures intact third digit amputation stump. Erythema about the ankle is resolved in addition to continued improvement in swelling. Tenderness is improving about his ankle, but still present at lateral malleolus and medial malleolus. Dressing changed 10/17/24 by wound nurse consisting of Betadine soaked Adaptic, 4 x 4 gauze, Kerlix, ABD, and 4 inch Louis wrap rolled onto the foot. Nursing may continue to change dressing every 3 days On 10/05/2024 ESR noted to be elevated at 251 and ESR at 37 MRI was obtained 10/07/2024 demonstrating likely osteomyelitis of the remaining osseous structures of the middle and distal phalanx of the third digit of the right foot. I have reviewed imaging osteomyelitis is questionable however givenconcern over any recurrence and for definitive treatment patient is agreeable toamputation of the third digit. Wound Culture did demonstrate MSRA Surgical cultures obtained 10/10/2024: Tissue third digit to micro, demonstrates MSSA, Serratia, MRSE; distal phalanx bone third digit to micro, MSSA and Serratia; base of the proximal phalanx third digit to pathology, demonstrates chronic osteomyelitis with marrow edema. Currently on oral doxycycline and Levaquin for 7 days per ID management Medicine team following for medical management, they are greatly appreciated. Infectious disease following for antibiotic management Wound nurse following for assistance in dressing changes Patient is to continue to elevate the right foot at all times rest for postoperative edema control May apply ice behind the right knee for postoperative pain control He is to keep all dressings clean, dry, and intact to the right foot He may continue ambulation in a protected weightbearing status utilizing his surgical shoe to the right foot. This will aid in decreasing fall due to his Parkinson's. May continue working with therapy to increase strength and rehabilitation prior to his discharge home Discussed with the patient expected suture removal in 2 weeks Due to continued pain/discomfort in the ankle with movement and palpation to themedial and lateral malleoli will order repeat radiographs of the right ankle andright foot to evaluate for fracture. Will continue to follow while in TCU weekly. Reach out to Dr. Davis for any questions or concerns. Jr. Harpreet Watson.P.M. [facility] [phone] HPI Consult Data Date of Consult: 10/18/24 HPI Narrative Reason for Consultation: Continued care s/p third digit amputation right foot HPI Narrative: AMBROCIO JEFFERS, is a 74 M who presents to the transitional care unit by way of [facility] for continued care s/p third digit amputation of the right foot in addition to strengthening and rehabilitation prior to discharge home. He has PM Hx of DM type II with peripheral polyneuropathy, Parkinson's disease, Hx of falls secondary to Parkinson's, HTN. Patient first reported to [facility] on 10/05/2024 for increasing redness of the right lower extremity. He had previously followed with Dr. Morgan in office and underwent debridement on 10/01/2024. Morning of 10/03/2024 he did fall resulting in some redness around the ankle and pain in the ankle and foot but reported that the redness had started the night prior despite being on oral doxycycline. Earlier of oral antibiotics he presented to [facility] and was subsequently admitted and started on IV antibiotic. Radiographs were negative for acute osseous pathology. However he did have inflammatory markers which were noted to be elevated with ESR of 37 and CRP of 251. Did undergo subsequentMRI demonstrating likely osteomyelitis of the distal phalanx middle phalanx and head of the proximal phalanx of the third digit. He then underwent third digit amputation with me on 10/10/2024. He did continue IV antibiotics while is in andwas then transferred to TCU for continued care and therapy prior to his discharge home. [facility] Medical History (Updated 10/18/24 @ 15:[address] Elana Davis, LEEROY) Parkinson disease Hypertension Diabetes Home Medications ?Medication ?Instructions ?Recorded ?Last Taken ?Type carbidopa 25 mg-levodopa 250 mg 2 tab PO BID parkinson s 03/10/20 10/11/24 History tablet glimepiride 4 mg tablet 4 mg PO DAILY diabetes 03/1010/05/24 History lisinopril 20 1 tab PO DAILY blood pressur e 03/10/20 10/05/24 History mg-hydrochlorothiazide 25 mg tablet tamsulosin 0.4 mg capsule 0.4 mg PO Q24H retention 10/11/24 History cholecalciferol (vitamin D3) 50 50 mcg PO DAILY supple ment 11/09/22 10/11/24 History mcg (2,000 unit) tablet empagliflozin 25 mg tablet 25 mg PO DAILY diabetes 10/05/24 History (Jardiance) gabapentin 100 mg capsule 100 mg PO Q8H pain/neurapath y 11/09/22 10/11/24 History pravastatin 20 mg tablet 20 mg PO DAILY cholesterol 0 11/09/22 10/10/24 History cyclobenzaprine 10 mg tablet 10 mg PO TID pain 5 10/11/24 History omeprazole 20 mg capsule,delayed 20 mg PO DAILY heartb urn 10/05/24 10/11/24 History release propranolol 20 mg tablet 20 mg PO BID blood pressure 10/05/24 10/11/24 History acetaminophen 500 mg tablet 1,000 mg (2 x 500 mg) PO Q 8 PRN 10/11/24 10/11/24 Rx pain #0 tabs doxycycline monohydrate 100 mg 100 mg PO BID infection #14 caps 10/11/24 10/11/24 Rx capsule enoxaparin 40 mg/0.4 mL 40 mg (0.4 mL) subcut DAILY blood 10/11/24 10/11/24 Rx subcutaneous syringe thinner #0 mL insulin glargine-yfgn 100 unit/mL 20 unit (0.2 mL) sub cut BID Blood 10/11/24 10/11/24 Rx (3 mL) subcutaneous pen sugar #0 mL insulin lispro 100 unit/mL See Protocol subcut ACHS Bl ood 10/11/24 10/11/24 Rx subcutaneous pen (Humalog KwikPen sugar #0 mL (U-100) Insulin) melatonin 3 mg tablet 3 mg PO QHS PRN PRN Insomnia #0 10/11/24 Unknown Rx tabs oxycodone 5 mg tablet 5 mg PO Q4H PRN PRN Pain Sco re 10/11/24 10/11/24 Rx 1-10 3 days #12 tabs Allergy/AdvReac Type Severity Reaction Status Date / Time No Known Allergies Allergy Verified 10/10/24 11:37 Surgical History History of partial amputation of toe of right foot h/o appendectomy Social History (Updated 10/11/24 @ 16:[address] Ion Vega MD) household members: spouse Smoking Status: Never smoker alcohol intake: never substance use type: does not use ROS Constitutional Constitutional: Denies body ache(s), chills or fever(s) Eyes Eyes: Denies burning, diplopia or loss of vision ENT HEENT: Denies dysphagia, nasal congestion, rhinorrhea or sore throat Cardiovascular Cardiovascular: Denies chest pain, claudication or palpitations Respiratory/Chest Respiratory/Chest: Denies cough, dyspnea, shortness of breath at rest or wheezing Gastrointestinal Gastrointestinal: Denies abdominal pain, constipation, diarrhea, nausea or vomiting Genitourinary Genitourinary: Denies dysuria, hematuria or urinary urgency Musculoskeletal Musculoskeletal: Reports extremity pain; Denies joint pain, joint stiffness or joint swelling Integumentary Integumentary: Denies jaundice, pruritus or rash Neurologic Neurologic: Denies dizziness, numbness or seizures Psychiatric Psychiatric: Denies anxiety or depression Endocrine Endocrinology: Denies polydipsia, polyphagia or polyuria Hematologic/Lymphatic Hematologic/Lymphatic: Denies easy bleeding or easy bruising Allergic/Immunologic Allergic/Immunologic: Denies urticaria or wheezing Physical Exam Const alert, oriented x3 and no apparent distress General Appearance: cooperative HEENT normocephalic Eyes Eyes Narrative: Wears glasses General Eye: normal appearance of both eyes Neck General: normal visual inspection Lymph Lymphatic: no lymphadenopathy noted and no lymphedema noted Resp normal respiratory effort Cardio regular rate and regular rhythm Extremity no calf tenderness Extremity Narrative: Bilateral lower extremity: Vascular: DP and PT pulses weakly palpable. CFT less than 5 seconds to the digits. Normal temperature gradient. Hair growth is diminished to digits and foot Neurologic: Gross sensation is intact. Protective sensation is diminished secondary to diabetic peripheral polyneuropathy Musculoskeletal: Third digit amputation of the right foot noted. Negative Prattsign, negative Homans' sign. Pain to palpation about the lateral ankle, anterior ankle, and medial ankle right lower extremity. Dermatological: There is resolution of erythema about the ankle to just above the ankle mortise/distal tibia right lower extremity. This has receded and resolved from the previous line of demarcation consistent with resolving cellulitis. Third digit amputation of the right foot is appreciated with intactsutures overlying the amputation site. There is no surrounding erythema of the digit or foot, no purulent drainage from the digit site, no foul odor noted. Nopain to palpation about the surgical site. Skin no rashes or lesions noted Neuro moves all extremities Lab / Micro Data 10/12/24 05:59 10/12/24 05:59 Labs: Laboratory Results - last 24 hr 10/17/24 16:01: POC Glucose 214 H 10/17/24 21:09: POC Glucose 246 H 10/18/24 05:05: POC Glucose 232 H 10/18/24 06:23: POC Glucose 244 H 10/18/24 11:38: POC Glucose 272 H 10/18/24 1509 <Electronically signed by Elana Davis DPM> Cosigner Signature (if applicable): CC: Dr. Elana Hickman DO; Dr. Ion Vega MD~ Signed [facility] Work Phone: 1(476) 411-605109-05-2025 Radiology Diagnostic study note [facility] Imaging Services [address] [place] [address] Ankle min 3 Views MR#: [id number] Acct: [id number] Name: AMBROCIO JEFFERS Rep #: [id number] : 1950 M 74 From: Ailyn Pichardo MD PCP: Dr. Elana Hickman DO Status: ADM IN Study:Ankle min 3 Views Date of Exam: Exam# [id number] Ordering Dr: Elana Davis DPM EXAM: XR Right Ankle Complete, 3 or More Views CLINICAL INDICATION: CONTINUED ANKLE PAIN TECHNIQUE: Frontal, lateral and oblique views of the right ankle. COMPARISON: No relevant prior studies available. FINDINGS: BONES/JOINTS: Unremarkable. No dislocation. No acute fracture. SOFT TISSUES: Soft tissue swelling. VASCULATURE: Vascular calcification. RAD/Ankle min 3 Views IMPRESSION: No acute fracture. Soft tissue swelling. Reading Location: [facility] CC: LEEROY Davis; Dr. Elana Hickman DO ~ Guideman: Signed [facility]09-05-2025 Radiology Diagnostic study note [facility] Imaging Services [address] [place] [address] Foot min 3 Views MR#: [id number] Acct: [id number] Name: AMBROCIO JEFFERS Rep #: [id number] : 1950 M 74 From: Ailyn Pichardo MD PCP: Dr. Elana Hickman DO Status: ADM IN Study:Foot min 3 Views Date of Exam: 07/07 Exam# [id number] Ordering Dr: Elana Davis DPM EXAM: XR Right Foot Complete, 3 or More Views CLINICAL INDICATION: CONTINUED FOOT PAIN TECHNIQUE: Frontal, lateral and oblique views of the right foot. COMPARISON: No relevant prior studies available. FINDINGS: BONES/JOINTS: Mild degenerative changes of the 1st metacarpophalangeal joint. Mild degenerative changes of the distal interphalangeal joints. Mild hallucis valgus deformity of the 1st toe. Amputation of the 3rd metatarsophalangeal joint. No acute fracture. No dislocation. SOFT TISSUES: Soft tissue swelling. RAD/Foot min 3 Views IMPRESSION: 1. Soft tissue swelling. 2. Postoperative changes as above. Reading Location: [facility] CC: LEEROY Davis; Dr. Elana Hickman DO ~ Guideman: Signed [facility]09-05-2025 Consult note [facility] Medical Records Department [address] [place] [address] Consultation 10/18/24 1450 MR#: [id number] Acct: [id number] Name: AMBROCIO JEFFERS Rep #:[id number] : 1950 74 From: Elana sesay DPM PCP: Dr. 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 Sutures intact third digit amputation stump. Erythema about the ankle is resolved in addition to continued improvement in swelling. Tenderness is improving about his ankle, but still present at lateral malleolus and medial malleolus. Dressing changed 10/17/24 by wound nurse consisting of Betadine soaked Adaptic, 4 x 4 gauze, Kerlix, ABD, and 4 inch Louis wrap rolled onto the foot. Nursing may continue to change dressing every 3 days On 10/05/2024 ESR noted to be elevated at 251 and ESR at 37 MRI was obtained 10/07/2024 demonstrating likely osteomyelitis of the remaining osseous structures of the middle and distal phalanx of the third digit of the right foot. I have reviewed imaging osteomyelitis is questionable however givenconcern over any recurrence and for definitive treatment patient is agreeable toamputation of the third digit. Wound Culture did demonstrate MSRA Surgical cultures obtained 10/10/2024: Tissue third digit to micro, demonstrates MSSA, Serratia, MRSE; distal phalanx bone third digit to micro, MSSA and Serratia; base of the proximal phalanx third digit to pathology, demonstrates chronic osteomyelitis with marrow edema. Currently on oral doxycycline and Levaquin for 7 days per ID management Medicine team following for medical management, they are greatly appreciated. Infectious disease following for antibiotic management Wound nurse following for assistance in dressing changes Patient is to continue to elevate the right foot at all times rest for postoperative edema control May apply ice behind the right knee for postoperative pain control He is to keep all dressings clean, dry, and intact to the right foot He may continue ambulation in a protected weightbearing status utilizing his surgical shoe to the right foot. This will aid in decreasing fall due to his Parkinson's. May continue working with therapy to increase strength and rehabilitation prior to his discharge home Discussed with the patient expected suture removal in 2 weeks Due to continued pain/discomfort in the ankle with movement and palpation to themedial and lateral malleoli will order repeat radiographs of the right ankle andright foot to evaluate for fracture. Will continue to follow while in TCU weekly. Reach out to Dr. Davis for any questions or concerns. Jr. Harpreet Watson.P.M. [facility] [phone] HPI Consult Data Date of Consult: 10/18/24 HPI Narrative Reason for Consultation: Continued care s/p third digit amputation right foot HPI Narrative: AMBROCIO WRIGHTISER, is a 74 M who presents to the transitional care unit by way of [facility] for continued care s/p third digit amputation of the right foot in addition to strengthening and rehabilitation prior to discharge home. He has PM Hx of DM type II with peripheral polyneuropathy,Parkinson's disease, Hx of falls secondary to Parkinson's, HTN. Patient first reported to [facility] on 10/05/2024 for increasing redness of the right lower extremity. He had previously followed with Dr. Morgan in office and underwent debridement on 10/01/2024. Morning of 10/03/2024 he did fall resulting in some redness around the ankle and pain in the ankle and foot but reported that the redness had started the night prior despite being on oral doxycycline. Earlier of oral antibiotics he presented to [facility] and was subsequently admitted and started on IV antibiotic. Radiographs were negative for acute osseous pathology. However he did have inflammatory markers which were noted to be elevated with ESR of 37 and CRP of 251. Did undergo subsequentMRI demonstrating likely osteomyelitis of the distal phalanx middle phalanx and head of the proximal phalanx of the third digit. He then underwent third digit amputation with me on 10/10/2024. [facility] for continued care and therapy prior to his disc harge home. [facility] Medical History (Updated 10/18/24 @ 15:[address] Elana Davis, DPMauro) Parkinson disease Hypertension Diabetes Home Medications ?Medication ?Instructions ?Recorded ?Last Taken ?Type carbidopa 25 mg-levodopa 250 mg 2 tab PO BID parkinson s 03/10/20 10/11/24 History tablet glimepiride 4 mg tablet 4 mg PO DAILY diabetes 03/1010/05/24 History lisinopril 20 1 tab PO DAILY blood pressur e 03/10/20 10/05/24 History mg-hydrochlorothiazide 25 mg tablet tamsulosin 0.4 mg capsule 0.4 mg PO Q24H retention 10/11/24 History cholecalciferol (vitamin D3) 50 50 mcg PO DAILY supple ment 11/09/22 10/11/24 History mcg (2,000 unit) tablet empagliflozin 25 mg tablet 25 mg PO DAILY diabetes 10/05/24 History (Jardiance) gabapentin 100 mg capsule 100 mg PO Q8H pain/neurapath y 11/09/22 10/11/24 History pravastatin 20 mg tablet 20 mg PO DAILY cholesterol 0 11/09/22 10/10/24 History cyclobenzaprine 10 mg tablet 10 mg PO TID pain 10/05/2 5 10/11/24 History omeprazole 20 mg capsule,delayed 20 mg PO DAILY heartb urn 10/05/24 10/11/24 History release propranolol 20 mg tablet 20 mg PO BID blood pressure 10/05/24 10/11/24 History acetaminophen 500 mg tablet 1,000 mg (2 x 500 mg) PO Q 8 PRN 10/11/24 10/11/24 Rx pain #0 tabs doxycycline monohydrate 100 mg 100 mg PO BID infection #14 caps 10/11/24 10/11/24 Rx capsule enoxaparin 40 mg/0.4 mL 40 mg (0.4 mL) subcut DAILY blood 10/11/24 10/11/24 Rx subcutaneous syringe thinner #0 mL insulin glargine-yfgn 100 unit/mL 20 unit (0.2 mL) sub cut BID Blood 10/11/24 10/11/24 Rx (3 mL) subcutaneous pen sugar #0 mL insulin lispro 100 unit/mL See Protocol subcut ACHS Bl ood 10/11/24 10/11/24 Rx subcutaneous pen (Humalog KwikPen sugar #0 mL (U-100) Insulin) melatonin 3 mg tablet 3 mg PO QHS PRN PRN Insomnia #0 10/11/24 Unknown Rx tabs oxycodone 5 mg tablet 5 mg PO Q4H PRN PRN Pain Sco re 10/11/24 10/11/24 Rx 1-10 3 days #12 tabs Allergy/AdvReac Type Severity Reaction Status Date / Time No Known Allergies Allergy Verified 10/10/24 11:37 Surgical History History of partial amputation of toe of right foot h/o appendectomy Social History (Updated 10/11/24 @ 16:[address] Ion Vega MD) household members: spouse Smoking Status: Never smoker alcohol intake: never substance use type: does not use ROS Constitutional Constitutional: Denies body ache(s), chills or fever(s) Eyes Eyes: Denies burning, diplopia or loss of vision ENT HEENT: Denies dysphagia, nasal congestion, rhinorrhea or sore throat Cardiovascular Cardiovascular: Denies chest pain, claudication or palpitations Respiratory/Chest Respiratory/Chest: Denies cough, dyspnea, shortness of breath at rest or wheezing Gastrointestinal Gastrointestinal: Denies abdominal pain, constipation, diarrhea, nausea or vomiting Genitourinary Genitourinary: Denies dysuria, hematuria or urinary urgency Musculoskeletal Musculoskeletal: Reports extremity pain; Denies joint pain, joint stiffness or joint swelling Integumentary Integumentary: Denies jaundice, pruritus or rash Neurologic Neurologic: Denies dizziness, numbness or seizures Psychiatric Psychiatric: Denies anxiety or depression Endocrine Endocrinology: Denies polydipsia, polyphagia or polyuria Hematologic/Lymphatic Hematologic/Lymphatic: Denies easy bleeding or easy bruising Allergic/Immunologic Allergic/Immunologic: Denies urticaria or wheezing Physical Exam Const alert, oriented x3 and no apparent distress General Appearance: cooperative HEENT normocephalic Eyes Eyes Narrative: Wears glasses General Eye: normal appearance of both eyes Neck General: normal visual inspection Lymph Lymphatic: no lymphadenopathy noted and no lymphedema noted Resp normal respiratory effort Cardio regular rate and regular rhythm Extremity no calf tenderness Extremity Narrative: Bilateral lower extremity: Vascular: DP and PT pulses weakly palpable. CFT less than 5 seconds to the digits. Normal temperature gradient. Hair growth is diminished to digits and foot Neurologic: Gross sensation is intact. Protective sensation is diminished secondary to diabetic peripheral polyneuropathy Musculoskeletal: Third digit amputation of the right foot noted. Negative Prattsign, negative Homans' sign. Pain to palpation about the lateral ankle, anterior ankle, and medial ankle right lower extremity. Dermatological: There is resolution of erythema about the ankle to just above the ankle mortise/distal tibia right lower extremity. This has receded and resolved from the previous line of demarcationconsistent with resolving cellulitis. Third digit amputation of the right foot is appreciated with i ntactsutures overlying the amputation site. There is no surrounding erythema of the digit or foot, no purulent drainage from the digit site, no foul odor noted. Nopain to palpation about the surgicalsite. Skin no rashes or lesions noted Neuro moves all extremities Lab / Micro Data 10/12/24 05:59 10/12/24 05:59 Labs: Laboratory Results - last 24 hr 10/17/24 16:01: POC Glucose 214 H 10/17/24 21:09: POC Glucose 246 H 10/18/24 05:05: POC Glucose 232 H 10/18/24 06:23: POC Glucose 244 H 10/18/24 11:38: POC Glucose 272 H 10/18/24 1509 Cosigner Signature (if applicable): CC: Dr. Elana Hickman DO; Dr. Ion Vega MD~ Signed [facility]09-05-2025 [facility] Progress note Author Ever Schreiber [facility] Note Date/Time October 15, 2024 10:44am [facility] Medical Records Department [address] [place] [address] Progress Note - Infect Disease 10/15/24 1035 MR#: [id number] Acct: [id number] Name: AMBROCIO JEFFERS Rep #:[id number] : 1950 74 From: Ever santiago MD PCP: Dr. Elana Hickman DO Status:ADM IN Location: [facility] TCU16-1 Physical Exam Narrative Feeling better, no pain in foot, no fever, no n/v/d. Const alert and no apparent distress General Appearance: cooperative Resp normal air movement and clear to auscultation bilaterally Cardio regular rate and regular rhythm GI soft to palpation, non-tender and non-distended Skin Skin Narrative: R foot wrapped ID ID: Route of nutrition/ use of supplements: [] Nutritional Intake: [] IV Site: [] [place]ios Catheter: [] Assessment & Plan Assessment/Plan (1) Osteomyelitis of third toe of right foot: PLAN: R 3rd toe osteo. 09/10/24 wound cx with MRSA. OR 10/10/[address] Davis for toe amputation. Surg cx with MSSA, serratia, and MRSE. I do not see pending pathology results. MRSE was only in tissue culture, but R to doxy and bactrim. Unable to use linezolid due to interaction with Sinemet. Had been on vanc while inpatient, so was covered during that time and no residual infection seen in OR at margin. Cont doxy and levaquin for one week total. Will follow 10/15/24 1044 <Electronically signed by Ever Schreiber MD> Cosigner Signature (if applicable): CC: ~ Signed [facility] Work Phone: 1(275) 965-146309-02-2025 Progress note [facility] Medical Records Department [address] [place] [address] Progress Note - Infect Disease 10/15/24 1035 MR#: [id number] Acct: [id number] Name: AMBROCIO JEFFERS Rep #:[id number] : 1950 74 From: Ever santiago MD PCP: Dr. Elana Hickman, DO Status:ADM IN Location: [place] [id number] Physical Exam Narrative Feeling better, no pain in foot, no fever, no n/v/d. Const alert and no apparent distress General Appearance: cooperative Resp normal air movement and clear to auscultation bilaterally Cardio regular rate and regular rhythm GI soft to palpation, non-tender and non-distended Skin Skin Narrative: R foot wrapped ID ID: Route of nutrition/ use of supplements: [] Nutritional Intake: [] IV Site: [] [place]ios Catheter: [] Assessment & Plan Assessment/Plan (1) Osteomyelitis of third toe of right foot: PLAN: R 3rd toe osteo. 09/10/24 wound cx with MRSA. OR 10/10/[address] Davis for toe amputation.Surg cx with MSSA, serratia, and MRSE. I do not see pending pathology results. MRSE was only in tissue culture, but R to doxy and bactrim. Unable to use linezolid due to interaction with Sinemet. Hadbeen on vanc while inpatient, so was covered during that time and no residual infection seen in OR at margin. Cont doxy and levaquin for one week total. Will follow 10/15/244 Cosigner Signature (if applicable): CC: ~ Signed [facility]08-31-2025 Progress note Author Ar Whitman [facility] Note Date/Time October 13, 2024 10 :10am [facility] Medical Records Department [address] [place] [address] Progress Note - Pharmacy 10/13/24 0737 MR#: [id number] Acct: [id number] Name: AMBROCIO JEFFERS Rep #:[id number] : 1950 74 From: Ar Whitman PCP: Dr. Elana Hickman, DO Status:ADM IN Location: TCU U16-1 Documented by User: Ar Whitman 10/13/24 07:59 TCU RX Drug Regimen Review Subjective/Objective Subjective/Objective Subjective: TCU admission note. 74 year old male with below past medical historyhospitalized for 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 Davis, complicated by acute kidney injury, admitted toT with debility, here for rehabilitation, strengthening, prior to discharge home with . Objective: Allergies No Known Allergies Allergy (Verified 10/10/24 11:37) Current Medications Generic Name Dose Route Start Last Admin Trade Name Freq PRN Reason Stop Dose Admin Acetaminophen 1,000 mg 10/11/24 16:25 10/13/24 04:03 Acetaminophen 500 Mg Tablet PO 1,000 mg Q6H PRN PRN Administration Pain Score 1-5 Calamine/Phenol 1 applic 10/13/24 10:00 Menthol/Lanolin/Calamine/Znox 113 Gm Tube TOPICAL BID LINO Protocol Carbidopa/Levodopa 2 tablet 10/11/24 16:00 10/13/24 06:09 Carbidopa/Levodopa 25/250 Tablet PO 2 tablet BIDAC LINO Administration Cholecalciferol 50 mcg 10/12/24 10:00 10/12/24 08:26 Cholecalciferol (Vit D3) 25 Mcg Tablet (1,000 Units) PO 50 mcg DAILY LINO Administration Cyclobenzaprine HCl 10 mg 10/11/24 22:00 10/13/24 06:09 Cyclobenzaprine Hcl 10 Mg Tablet PO 10 mg TID LINO Administration Doxycycline Monohydrate 100 mg 10/11/24 22:00 10/12/24 21:54 Doxycycline 100 Mg Capsule PO 10/18/24 10:01 100 mg BID LINO Administration Empagliflozin 25 mg 10/12/24 10:00 10/12/24 08:26 Empagliflozin 25 Mg Tablet PO 25 mg DAILY LINO Administration Enoxaparin Sodium 40 mg 10/12/24 10:00 10/12/24 08:26 Enoxaparin 40 Mg/0.4 Ml Syringe SC 40 mg DAILY LINO Administration Gabapentin 100 mg 10/11/24 22:00 10/13/24 06:07 Gabapentin 100 Mg Capsule PO 100 mg Q8 LINO Administration Glimepiride 4 mg 10/12/24 08:00 10/12/24 08:25 Glimepiride 4 Mg Tablet PO 4 mg DAILYCM LINO Administration Hydrochlorothiazide 25 mg 10/12/24 10:00 10/12/24 08:26 Hydrochlorothiazide 25 Mg Tablet PO 25 mg DAILY LINO Administration Insulin Glargine 20 unit 10/11/24 22:00 10/12/24 21:55 Insulin Glargine-Yfgn 100 Unit/Ml Pen SC 20 unit BID LINO Administration Lisinopril 20 mg 10/12/24 10:00 10/12/24 08:26 Lisinopril 20 Mg Tablet PO 20 mg DAILY LINO Administration Magnesium Citrate 300 ml 10/11/24 16:25 Magnesium Citrate 300 Ml PO DAILY PRN Constipation Melatonin 3 mg 10/11/24 15:40 10/13/24 04:03 Melatonin 3 Mg Tablet PO 3 mg QHS PRN PRN Administration Insomnia Oxycodone HCl 5 mg 10/11/24 15:40 Oxycodone 5 Mg Tablet PO Q4H PRN PRN Pain Score 6-10 or Pre PT/OT Pantoprazole Sodium 20 mg 10/12/24 10:00 10/12/24 08:26 Pantoprazole Sodium 20 Mg Tablet PO 20 mg DAILY LINO Administration Polyethylene Glycol 17 gm 10/11/24 22:00 10/12/24 21:53 Polyethylene Glycol 3350 17 Gm Packet PO Not Given BID LINO Pravastatin Sodium 20 mg 10/12/24 22:00 10/12/24 21:55 Pravastatin 20 Mg Tablet PO 20 mg QHS LINO Administration Propranolol HCl 20 mg 10/11/24 22:00 10/12/24 21:55 Propranolol 10 Mg Tablet PO 20 mg BID LINO Administration Senna/Docusate Sodium 2 tablet 10/11/24 22:00 10/12/24 21:54 Senna/Docusate Sodium 1 Tablet PO Not Given BID LINO Sodium Chloride 10 - 40 ml 10/11/24 15:54 10/12/24 21:55 0.9% Saline Lock 10 Ml Syringe IV 10 ml UD PRN Administration SALINE FLUSH Tamsulosin HCl 0.4 mg 10/12/24 10:00 10/12/24 08:26 Tamsulosin Hcl 0.4 Mg Capsule PO 0.4 mg DAILY LINO Administration Tuberculin PPD 0.1 ml 10/19/24 10:00 Tuberculin,Purif.Prot.Deriv. 50 Tu/Ml Vial ID 10/19/24 10:01 X1 ONE Problem List Neuropathic pain (Acute) Hyperlipidemia (Acute) BPH (benign prostatic hyperplasia) (Acute) Essential (primary) hypertension (Acute) Type 2 diabetes mellitus with hyperglycemia (Acute) Parkinson disease (Acute) Acute kidney injury (Acute) Osteomyelitis of third toe of right foot (Acute) Debility (Acute) Vital Signs Temp Pulse Resp BP Pulse Ox O2 Del Method 97.6 F L 67 18 143/77 H 93 Room Air 10/12/24 08:21 10/13/24 02:31 10/13/24 02:31 10/12/24 21:51 10/13/24 02:31 10/13/24 02:31 Oxygen Delivery Method Room Air Weight: 108.635 kg Body Mass Index (BMI) 33.4 Sodium 142 mmol/L (133-145) 10/12/24 05:59 Potassium 3.7 mmol/L (3.3-5.1) 10/12/24 05:59 Chloride 105 mmol/L (98-108) 10/12/24 05:59 Carbon Dioxide 24.8 mmol/L (21.0-32.0) 10/12/24 05:59 Anion Gap 12 (5-15) 10/12/24 05:59 BUN 24 mg/dL (4-19) H 10/12/24 05:59 Creatinine 0.93 mg/dL (0.70-1.20) 10/12/24 05:59 Est GFR (MDRD) Non-Af 87 (>60) 10/12/24 05:59 BUN/Creatinine Ratio 25.9 RATIO (10-20) H 10/12/24 05:59 Glucose 156 mg/dL (70-99) H 10/12/24 05:59 Assessment/Plan: 1. Pain: acetaminophen 1000 mg PO Q6H PRN pain (1-5), oxycodone 5 mg PO Q4H PRNpain (6-10). The patient has used 1 dose of PRN acetaminophen and 0 doses of PRNoxycodone so far this admission. Please continue to monitor pain levels, PRN medication usage, LFTs (no recent LFTs documented), for constipation, respiratory depression, for dizziness/drowsiness, and for syncope/ataxia/falls. 2. Bowel: polyethylene glycol 17 grams PO daily, senna/docusate 2 tablets PO BID, magnesium citrate 300 mL PO daily PRN constipation. The patient has not required a dose of PRN magnesium citrate, and the patient's last bowel movement was on 10/12/24. Please continue to monitor for PRN medication usage, for bowel movements, for constipation, and diarrhea. 3. DVT prophylaxis: enoxaparin 40 mg SC daily. Please continue to monitor for s/s of a DVT such as pain/erythema/swelling in an extremity, for s/s of bleeding/excessive bruising, hemoglobin levels (Hgb = 14.3 g/dL on ), platelet counts (Plt = 273 K/mm3 on 10/12/24), and renal function (serum creatinine = 0.93 mg/dL with creatinine clearance ~ 89 mL/min on 10/12/24). 4. Parkinson Disease: carbidopa/levodopa 2 tablets PO BIDAC. Please continue to monitor for s/s of Parkinson Disease, for dyskinesias, and akinesias, as well asfor dizziness, headaches, and insomnia. 5. Muscle spasms: cyclobenzaprine 10 mg Po TID. Please continue to monitor for muscle spasms, for drowsiness, fatigue, headaches, and dizziness, 6. 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 Please continue to monitor for s/s of infection in foot, fever (T = 97.6 F on 10/12/24), chills, WBC counts (WBC = 7.3 K/mm3 on 10/12/24), for photosensitivity, and for GI distress with doxycycline administration. 7. Diabetes Mellitus II: glimepiride 4 mg PO daily with meals, insulin glargine 20 units SC BID, empagliflozin 25 mg PO daily. Please continue to monitor BG levels (recent POC BG = 135-328 mg/dL) hemoglobin A1C levels (A1C = 8.7% on 10/05/24), renal function (serum creatinine = 0.93 mg/dL with creatinine clearance ~ 89 mL/min on 10/12/24), for s/s of hypoglycemia, and for s/s of genitourinary infections. The patient's blood glucose levels have been elevated during admission. Please consider increasing insulin glargine dose to 25 units SC BID and monitoring for s/s of hypo/hyperglycemia. 8. Diabetic polyneuropathy: gabapentin 100 mg PO TID. Please continue to monitorfor nerve pain, for dizziness/drowsiness, renal function (serum creatinine = 0.93 mg/dL with creatinine clearance ~ 89 mL/min on 10/12/24), and for lower extremity edema. 9. Hypertension: hydrochlorothiazide 25 mg PO daily, lisinopril 20 mg PO daily, propranolol 20 mg PO BID. Please continue to monitor blood pressures (143-187/77-93 mmHg), heart rates (recent range = 65-88 beats/min), renal function (serum creatinine = 0.93 mg/dL with creatinine clearance ~ 89 mL/min on10/12/24), sodium levels (Na = 142 mmol/L on 10/12/24), potassium levels (K = 3.7 mmol/L on 10/12/24), for angioedema, dry cough, and drowsiness. Since admission to TCU the patient's blood pressures have been elevated. Please consider increasing the patient's lisinopril to 30 mg PO daily and closely monitoring blood pressures. 10. Hyperlipidemia: pravastatin 20 mg PO QHS. Please continue to monitor lipid levels (no recent lipid levels documented), LFTs (no recent LFTs documented), and for myalgias. 11. BPH: tamsulosin 0.4 mg PO daily. Please continue to monitor for urinary retention, and for s/s of orthostasis. 12. GERD: pantoprazole 40 mg PO daily. Please continue to monitor for s/s of GERD, for diarrhea that could indicate clostridium difficile infection, and for s/s of bone resorption such as fractures. 13. Vitamin D deficiency: cholecalciferol 50 mcg PO daily. Please continue to monitor vitamin D levels (no recent vitamin D levels documented), and for s/s ofvitamin D deficiency. 14. Insomnia: melatonin 3 mg PO QHS PRN insomnia. The patient has used 2 doses of melatonin so far this admission. Please continue to monitor for insomnia, PRNmedication usage, and for drowsiness. 15. Skin health: calmoseptine 1 application topically BID. Please continue to monitor skin health. Assessment/Plan for indications treated with psychotropic medications: NA Medical chart and medication regimen reviewed. The following medication irregularities or issues were identified: 1. Diabetes Mellitus II: glimepiride 4 mg PO daily with meals, insulin glargine 20 units SC BID, empagliflozin 25 mg PO daily. The patient's blood glucose levels have been elevated during admission. Please consider increasing insulin glargine dose to 25 units SC BID and monitoring for s/s of hypo/hyperglycemia. 2. Hypertension: hydrochlorothiazide 25 mg PO daily, lisinopril 20 mg PO daily, propranolol 20 mg PO BID. Since admission to [facility] the patient's blood pressures have been elevated. Please consider increasing the patient's lisinopril to 30 mgPO daily and closely monitoring blood pressures. Date Date of Note: 10/13/24 Documented by User: Dr. Ion Vega MD 10/13/24 10:10 TCU RX Drug Regimen Review Provider Comments Provider responsibility Provider Comments to Recommendations by Pharmacy Agree 10/13/24 2770 <Electronically signed by Ar Whitman> Ar Whitman Cosigner Signature (if applicable): 10/13/24 1010 <Electronically signed by Ion Vega MD> CC: ~ Signed [facility] Work Phone: [phone]) 159-138808-31-2025 Progress note [facility] Medical Records Department [address] [place] [address] Progress Note - Pharmacy 10/13/24 0737 MR#: [id number] Acct: [id number] Name: AMBROCIO JEFFERS Rep #:[id number] : 1950 74 From: Ar Whitman PCP: Dr. Elana Hickman, Status:ADM IN Location: [place] [id number] Documented by User: Ar Whitman 10/13/24 07:59 TCU RX Drug Regimen Review Subjective/Objective Subjective/Objective Subjective: TCU admission note. 74 year old male with below past medical historyhospitalized for 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 Davis, complicated by acute kidney injury, admitted toT with debility, here for rehabilitation, strengthening, prior to discharge home with . Objective: Allergies No Known Allergies Allergy (Verified 10/10/24 11:37) Current Medications Generic Name Dose Route Start Last Admin Trade Name Freq PRN Reason Stop Dose Admin Acetaminophen 1,000 mg 10/11/24 16:25 10/13/24 04:03 Acetaminophen 500 Mg Tablet PO 1,000 mg Q6H PRN PRN Administration Pain Score 1-5 Calamine/Phenol 1 applic 10/13/24 10:00 Menthol/Lanolin/Calamine/Znox 113 Gm Tube TOPICAL BID LINO Protocol Carbidopa/Levodopa 2 tablet 10/11/24 16:00 10/13/24 06:09 Carbidopa/Levodopa 25/250 Tablet PO 2 tablet BIDAC LINO Administration Cholecalciferol 50 mcg 10/12/24 10:00 10/12/24 08:26 Cholecalciferol (Vit D3) 25 Mcg Tablet (1,000 Units) PO 50 mcg DAILY LINO Administration Cyclobenzaprine HCl 10 mg 10/11/24 22:00 10/13/24 06:09 Cyclobenzaprine Hcl 10 Mg Tablet PO 10 mg TID LINO Administration Doxycycline Monohydrate 100 mg 10/11/24 22:00 10/12/24 21:54 Doxycycline 100 Mg Capsule PO 10/18/24 10:01 100 mg BID LINO Administration Empagliflozin 25 mg 10/12/24 10:00 10/12/24 08:26 Empagliflozin 25 Mg Tablet PO 25 mg DAILY LINO Administration Enoxaparin Sodium 40 mg 10/12/24 10:00 10/12/24 08:26 Enoxaparin 40 Mg/0.4 Ml Syringe SC 40 mg DAILY LINO Administration Gabapentin 100 mg 10/11/24 22:00 10/13/24 06:07 Gabapentin 100 Mg Capsule PO 100 mg Q8 LINO Administration Glimepiride 4 mg 10/12/24 08:00 10/12/24 08:25 Glimepiride 4 Mg Tablet PO 4 mg DAILYCM LINO Administration Hydrochlorothiazide 25 mg 10/12/24 10:00 10/12/24 08:26 Hydrochlorothiazide 25 Mg Tablet PO 25 mg DAILY LINO Administration Insulin Glargine 20 unit 10/11/24 22:00 10/12/24 21:55 Insulin Glargine-Yfgn 100 Unit/Ml Pen SC 20 unit BID LINO Administration Lisinopril 20 mg 10/12/24 10:00 10/12/24 08:26 Lisinopril 20 Mg Tablet PO 20 mg DAILY LINO Administration Magnesium Citrate 300 ml 10/11/24 16:25 Magnesium Citrate 300 Ml PO DAILY PRN Constipation Melatonin 3 mg 10/11/24 15:40 10/13/24 04:03 Melatonin 3 Mg Tablet PO 3 mg QHS PRN PRN Administration Insomnia Oxycodone HCl 5 mg 10/11/24 15:40 Oxycodone 5 Mg Tablet PO Q4H PRN PRN Pain Score 6-10 or Pre PT/OT Pantoprazole Sodium 20 mg 10/12/24 10:00 10/12/24 08:26 Pantoprazole Sodium 20 Mg Tablet PO 20 mg DAILY LINO Administration Polyethylene Glycol 17 gm 10/11/24 22:00 10/12/24 21:53 Polyethylene Glycol 3350 17 Gm Packet PO Not Given BID [facility] Pravastatin Sodium 20 mg 10/12/24 22:00 10/12/24 21:55 Pravastatin 20 Mg Tablet PO 20 mg QHS LINO Administration Propranolol HCl 20 mg 10/11/24 22:00 10/12/24 21:55 Propranolol 10 Mg Tablet PO 20 mg BID [facility] Administration Senna/Docusate Sodium 2 tablet 10/11/24 22:00 10/12/24 21:54 Senna/Docusate Sodium 1 Tablet PO Not Given BID [facility] Sodium Chloride 10 - 40 ml 10/11/24 15:54 10/12/24 21:55 0.9% Saline Lock 10 Ml Syringe IV 10 ml UD PRN Administration SALINE FLUSH Tamsulosin HCl 0.4 mg 10/12/24 10:00 10/12/24 08:26 Tamsulosin Hcl 0.4 Mg Capsule PO 0.4 mg DAILY LINO Administration Tuberculin PPD 0.1 ml 10/19/24 10:00 Tuberculin,Purif.Prot.Deriv. 50 Tu/Ml Vial ID 10/19/24 10:01 X1 ONE Problem List Neuropathic pain (Acute) Hyperlipidemia (Acute) BPH (benign prostatic hyperplasia) (Acute) Essential (primary) hypertension (Acute) Type 2 diabetes mellitus with hyperglycemia (Acute) Parkinson disease (Acute) Acute kidney injury (Acute) Osteomyelitis of third toe of right foot (Acute) Debility (Acute) Vital Signs Temp Pulse Resp BP Pulse Ox O2 Del Method 97.6 F L 67 18 143/77 H 93 Room Air 10/12/24 08:21 10/13/24 02:31 10/13/24 02:31 10/12/24 21:51 10/13/24 02:31 10/13/24 02:31 Oxygen Delivery Method Room Air Weight: 108.635 kg Body Mass Index (BMI) 33.4 Sodium 142 mmol/L (133-145) 10/12/24 05:59 Potassium 3.7 mmol/L (3.3-5.1) 10/12/24 05:59 Chloride 105 mmol/L (98-108) 10/12/24 05:59 Carbon Dioxide 24.8 mmol/L (21.0-32.0) 10/12/24 05:59 Anion Gap 12 (5-15) 10/12/24 05:59 BUN 24 mg/dL (4-19) H 10/12/24 05:59 Creatinine 0.93 mg/dL (0.70-1.20) 10/12/24 05:59 Est GFR (MDRD) Non-Af 87 (>60) 10/12/24 05:59 BUN/Creatinine Ratio 25.9 RATIO (10-20) H 10/12/24 05:59 Glucose 156 mg/dL (70-99) H 10/12/24 05:59 Assessment/Plan: 1. Pain: acetaminophen 1000 mg PO Q6H PRN pain (1-5), oxycodone 5 mg PO Q4H PRNpain (6-10). The patient has used 1 dose of PRN acetaminophen and 0 doses of PRNoxycodone so far this admission. Please continue to monitor pain levels, PRN medication usage, LFTs (no recent LFTs documented), for constipation, respiratory depression, for dizziness/drowsiness, and for syncope/ataxia/falls. 2. Bowel: polyethylene glycol 17 grams PO daily, senna/docusate 2 tablets PO BID, magnesium [id number] mL PO daily PRN constipation. The patient has not required a dose of PRN magnesium citrate, andthe patient's last bowel movement was on 10/12/24. Please continue to monitor for PRN medication usage, for bowel movements, for constipation, and diarrhea. 3. DVT prophylaxis: enoxaparin 40 mg SC daily. Please continue to monitor for s/s of a DVT such as pain/erythema/swelling in an extremity, for s/s of bleeding/excessive bruising, hemoglobin levels (Hgb = 14.3 g/dL on ), platelet counts (Plt = 273 K/mm3 on 10/12/24), and renal function (serum cr eatinine = 0.93 mg/dL with creatinine clearance ~ 89 mL/min on 10/12/24). 4. Parkinson Disease: carbidopa/levodopa 2 tablets PO BIDAC. Please continue to monitor for s/s of Parkinson Disease, for dyskinesias, and akinesias, as well asfor dizziness, headaches, and insomnia. 5. Muscle spasms: cyclobenzaprine 10 mg Po TID. Please continue to monitor for muscle spasms, for drowsiness, fatigue, headaches, and dizziness, 6. 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 Please continue to monitor for s/s of infection in foot, fever (T = 97.6 F on 10/12/24), chills, WBC counts (WBC = 7.3 K/mm3 on 10/12/24), for photosensitivity, and for GI distress with doxycycline administration. 7. Diabetes Mellitus II: glimepiride 4 mg PO daily with meals, insulin glargine 20 units SC BID, empagliflozin 25 mg PO daily. Please continue to monitor BG levels (recent POC BG = 135-328 mg/dL) hemoglobin A1C levels (A1C = 8.7% on 10/05/24), renal function (serum creatinine = 0.93 mg/dL with creatinine clearance ~ 89 mL/min on 10/12/24), for s/s of hypoglycemia, and for s/s of genitourinary infections. The patient's blood glucose levels have been elevated during admission. Please consider increasing insulin glargine dose to 25 units SC BID and monitoring for s/s of hypo/hyperglycemia. 8. Diabetic polyneuropathy: gabapentin 100 mg PO TID. Please continue to monitorfor nerve pain, fordizziness/drowsiness, renal function (serum creatinine = 0.93 mg/dL with creatinine clearance ~ 89 mL/min on 10/12/24), and for lower extremity edema. 9. Hypertension: hydrochlorothiazide 25 mg PO daily, lisinopril 20 mg PO daily, propranolol 20 mg PO BID. Please continue to monitor blood pressures (143-187/77-93 mmHg), heart rates (recent range = 65-88 beats/min), renal function (serum creatinine = 0.93 mg/dL with creatinine clearance ~ 89 mL/min on10/12/24), sodium levels (Na = 142 mmol/L on 10/12/24), potassium levels (K = 3.7 mmol/L on 10/12/24), for angioedema, dry cough, and drowsiness. Since admission to TCU the patient's blood pressures have been elevated. Please consider increasing the patient's lisinopril to 30 mg PO daily and closely monitoring blood pressures. 10. Hyperlipidemia: pravastatin 20 mg PO QHS. Please continue to monitor lipid levels (no recent lipid levels documented), LFTs (no recent LFTs documented), and for myalgias. 11. BPH: tamsulosin 0.4 mg PO daily. Please continue to monitor for urinary retention, and for s/s of orthostasis. 12. GERD: pantoprazole 40 mg PO daily. Please continue to monitor for s/s of GERD, for diarrhea that could indicate clostridium difficile infection, and for s/s of bone resorption such as fractures. 13. Vitamin D deficiency: cholecalciferol 50 mcg PO daily. Please continue to monitor vitamin D levels (no recent vitamin D levels documented), and for s/s ofvitamin D deficiency. 14. Insomnia: melatonin 3 mg PO QHS PRN insomnia. The patient has used 2 doses of melatonin so far this admission. Please continue to monitor for insomnia, PRNmedication usage, and for drowsiness. 15. Skin health: calmoseptine 1 application topically BID. Please continue to monitor skin health. Assessment/Plan for indications treated with psychotropic medications: NA Medical chart and medication regimen reviewed. The following medication irregularities or issues were identified: 1. Diabetes Mellitus II: glimepiride 4 mg PO daily with meals, insulin glargine 20 units SC BID, empagliflozin 25 mg PO daily. The patient's blood glucose levels have been elevated during admission. Please consider increasing insulin glargine dose to 25 units SC BID and monitoring for s/s of hypo/hyperglycemia. 2. Hypertension: hydrochlorothiazide 25 mg PO daily, lisinopril 20 mg PO daily, propranolol 20 mg PO BID. Since admission to [facility] the patient's blood pressures have been elevated. Please consider increasing the patient's lisinopril to 30 mgPO daily and closely monitoring blood pressures. Date Date of Note: 10/13/24 Documented by User: Dr. Ion Vega MD 10/13/24 10:10 [facility] RX Drug Regimen Review Provider Comments Provider responsibility Provider Comments to Recommendations by Pharmacy Agree 10/13/24 0759 Ar Sarah Signature (if applicable): 10/13/24 1010 CC: ~ Signed [facility]08-29-2025 History and physical note Author Ion Gary [facility] Note Date/Time October 11, 2024 4: 36pm [facility] Medical Records Department [address] [place] [address] History & Physical Exam 10/11/24 1610 MR#: [id number] Acct: [id number] Name: AMBROCIO JEFFERS Rep #:[id number] : 1950 74 From: Ion Vega MD PCP: Dr. Elana Hickman, Status:ADM IN Location: [facility] TCU16-1 HPI - General General Date of Admission: 10/11/24 Date of Service: 10/11/24 Chief Complaint: Here for rehabilitation. HPI Narrative AMBROCIO JEFFERS, is a 74 Male who presents with followin10/05/2024 [facility] ED lower extremity injury. History Parkinson Disease, fell, injury right foot, right ankle. Right ankle pain, right posterior leg pain. Podiatry debrided right 3rd toe earlier this week, right foot redness noted. Doxycycline started 2 days ago, but redness spread up right leg. Weak. X-ray right ankle negative, X-ray right foot negative, No subcutaneous emphysema. Vancomycin given, ESR elevated, CRP elevated. 10/05/2024 Admit [facility]. Previous wound culture MRSA. Vancomycin IV for MRSA right foot cellulitis. 10/06/2024 Improved, redness persists. Vancomycin IV for MRSA right foot cellulitis. PT/OT/CM. Creatinine improved from 1.57 to 1.17. 10/07/2024 Erythema persists, right 3rd toe. Order MRI right foot to evaluate osteomyelitis. 10/08/2024 MRI showed osteomyelitis right 3rd toe, consult Podiatry. 10/09/2024 Consult Podiatry, Consult Infectious Disease. PT/OT SNF. Doppler ultrasound right lower extremity negative DVT. 10/10/2024 Dr. Davis performed amputation right 3rd digit. Dr. Schreiber recommended continuing Vancomycin for MRSA right foot osteomyelitis. 10/11/2024 Dr. Gonzalez recommended Doxycycline 100mg bid x 7 days upon discharge. 10/11/2024 Admit to TCU with debility, here for rehabilitation, strengthening, prior to discharge home with . [facility] Medical History (Updated 10/11/24 @ 16:[address] Ion Vega MD) Parkinson disease Hypertension Diabetes Home Medications ?Medication ?Instructions ?Recorded ?Last Taken ?Type carbidopa 25 mg-levodopa 250 mg 2 tab PO BID parkinson s 03/10/20 10/11/24 History tablet glimepiride 4 mg tablet 4 mg PO DAILY diabetes 03/1010/05/24 History lisinopril 20 1 tab PO DAILY blood pressur e 03/10/20 10/05/24 History mg-hydrochlorothiazide 25 mg tablet tamsulosin 0.4 mg capsule 0.4 mg PO Q24H retention 10/11/24 History cholecalciferol (vitamin D3) 50 50 mcg PO DAILY supple ment 11/09/22 10/11/24 History mcg (2,000 unit) tablet empagliflozin 25 mg tablet 25 mg PO DAILY diabetes 10/05/24 History (Jardiance) gabapentin 100 mg capsule 100 mg PO Q8H pain/neurapath y 11/09/22 10/11/24 History pravastatin 20 mg tablet 20 mg PO DAILY cholesterol 0 11/09/22 10/10/24 History cyclobenzaprine 10 mg tablet 10 mg PO TID pain 5 10/11/24 History omeprazole 20 mg capsule,delayed 20 mg PO DAILY heartb urn 10/05/24 10/11/24 History release propranolol 20 mg tablet 20 mg PO BID blood pressure 10/05/24 10/11/24 History acetaminophen 500 mg tablet 1,000 mg (2 x 500 mg) PO Q 8 PRN 10/11/24 10/11/24 Rx pain #0 tabs doxycycline monohydrate 100 mg 100 mg PO BID infection #14 caps 10/11/24 10/11/24 Rx capsule enoxaparin 40 mg/0.4 mL 40 mg (0.4 mL) subcut DAILY blood 10/11/24 10/11/24 Rx subcutaneous syringe thinner #0 mL insulin glargine-yfgn 100 unit/mL 20 unit (0.2 mL) sub cut BID Blood 10/11/24 10/11/24 Rx (3 mL) subcutaneous pen sugar #0 mL insulin lispro 100 unit/mL See Protocol subcut ACHS Bl ood 10/11/24 10/11/24 Rx subcutaneous pen (Humalog KwikPen sugar #0 mL (U-100) Insulin) melatonin 3 mg tablet 3 mg PO QHS PRN PRN Insomnia #0 10/11/24 Unknown Rx tabs oxycodone 5 mg tablet 5 mg PO Q4H PRN PRN Pain Sco re 10/11/24 10/11/24 Rx 1-10 3 days #12 tabs Allergy/AdvReac Type Severity Reaction Status Date / Time No Known Allergies Allergy Verified 10/10/24 11:37 Surgical History History of partial amputation of toe of right foot h/o appendectomy Social History (Updated 10/11/24 @ 16:[address] Ion Vega MD) household members: spouse Smoking Status: Never smoker alcohol intake: never substance use type: does not use ROS Constitutional Constitutional: Denies chills, fever(s) or weight gain ENT HEENT: Denies headache(s), nasal congestion or nasal discharge Cardiovascular Cardiovascular: Denies chest pain or palpitations Respiratory/Chest Respiratory/Chest: Denies cough, excessive phlegm production or shortness of breath with exertion Gastrointestinal Gastrointestinal: Denies abdominal pain, nausea or vomiting Genitourinary Genitourinary: Denies dysuria Musculoskeletal Musculoskeletal: Denies joint pain or joint swelling Integumentary Integumentary: Denies rash or wounds Neurologic Neurologic: Denies focal weakness, numbness or tingling Psychiatric Psychiatric: Denies anxiety, auditory hallucinations, depression, homicidal ideation or suicidal ideation Vital Signs Vital Signs Vital Signs: 10/11/24 15:30 Temperature 97.6 F L Temperature Source Temporal Pulse Rate 70 Respiratory Rate 13 Blood Pressure 187/90 H Blood Pressure Mean 122 Blood Pressure Source Monitor Blood Pressure Position Semi-Fowlers Blood Pressure Location Left Arm Pulse Ox 97 Oxygen Delivery Method Room Air Weight Weight: 108.635 kg Body Mass Index (BMI) 33.4 Physical Exam Const alert General Appearance: cooperative HEENT normocephalic Eyes PERRL and EOMs intact bilaterally Neck supple, no JVD and no carotid bruits Resp normal respiratory effort, normal air movement and clear to auscultation bilaterally Cardio regular rate and regular rhythm GI normal to inspection, nondistended, normoactive bowel sounds, non-tender and non-distended Extremity normal capillary refill Extremity Narrative: Right 3rd toe amputation, dressing, boot. 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 Davis, complicated by acute kidney injury, admitted to TCU with debility, here for rehabilitation, strengthening, prior to discharge home with . * Debility - PT/OT. * Pain - Tylenol 1000mg q6 prn pain (1-5), Oxycodone 5mg q4 prn pain (6-10). * Bowel - Miralax 17gm bid, senna/colace 2 tablets bid, Magnesium citrate 300mL daily prn, Soap suds enema x 1. * Adult immunization - Administer pneumonia vaccine, covid vaccine, flu vaccine as appropriate. * DVT prophylaxis - Lovenox 40mg sc daily. * Parkinson Disease - Sinemet 25/250mg 2 tablets bidac. * Vitamin D deficiency - D3 50mcg daily. * Muscle spasm - Flexeril 10mg tid. 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 Davis to follow. * Diabetes Mellitus II - Glimepiride 4mg daily, Jardiance 25mg daily, Glargine 20 units bid. * Diabetic polyneuropathy - Gabapentin 100mg q8. * Hypertension - Propranolol 20mg bid, Lisinopril 20mg daily, HCTZ 25mg daily. * Insomnia - Melatonin 3mg qhs. * GERD - Pantoprazole 20mg daily. * Hyperlipidemia - Pravastatin 20mg qhs. * BPH - Tamsulosin 0.4mg daily. 10/11/24 1636 <Electronically signed by Ion Vega MD> Cosigner Signature (if applicable): CC: Dr. Elana Hickman DO; Dr. Ion Vega MD~ Signed [facility] Work Phone: [phone]) 634-412708-29-2025 History and physical note [facility] Medical Records Department [address] [place] [address] History & Physical Exam 10/11/24 1610 MR#: [id number] Acct: [id number] Name: AMBROCIO JEFFERS Rep #:[id number] : 1950 74 From: Ion Vega MD PCP: Dr. Elana Hickman DO Status:ADM IN Location: [facility] TCU16-1 HPI - General General Date of Admission: 10/11/24 Date of Service: 10/11/24 Chief Complaint: Here for rehabilitation. HPI Narrative AMBROCIO JEFFERS, is a 74 Male who presents with followin10/05/2024 [facility] ED lower extremity injury. History Parkinson Disease, fell, injury right foot, right ankle. Right ankle pain, right posterior leg pain. Podiatry debrided right 3rd toe earlier this week, right foot redness noted. Doxycycline started 2 days ago, but redness spread up right leg. Weak. X-ray right ankle negative, X-ray right foot negative, No subcutaneous emphysema. Vancomycin given, ESR elevated, CRP elevated. 10/05/2024 Admit [facility]. Previous wound culture MRSA. Vancomycin IV for MRSA right foot cellulitis. 10/06/2024 Improved, redness persists. Vancomycin IV for MRSA right foot cellulitis. PT/OT/CM. Creatinine improved from 1.57 to 1.17. 10/07/2024 Erythema persists, right 3rd toe. Order MRI right foot to evaluate osteomyelitis. 10/08/2024 MRI showed osteomyelitis right 3rd toe, consult Podiatry. 10/09/2024 Consult Podiatry, Consult Infectious Disease. PT/OT SNF. Doppler ultrasound right lower extremity negative DVT. 10/10/2024 Dr. Davis performed amputation right 3rd digit. Dr. Schreiber recommended continuing Vancomycin for MRSA right foot osteomyelitis. 10/11/2024 Dr. Gonzalez recommended Doxycycline 100mg bid x 7 days upon discharge. 10/11/2024 Admit to TCU with debility, here for rehabilitation, strengthening, prior to discharge home with . [facility] Medical History (Updated 10/11/24 @ 16:[address] Ion Vega MD) Parkinson disease Hypertension Diabetes Home Medications ?Medication ?Instructions ?Recorded ?Last Taken ?Type carbidopa 25 mg-levodopa 250 mg 2 tab PO BID parkinson s 03/10/20 10/11/24 History tablet glimepiride 4 mg tablet 4 mg PO DAILY diabetes 03/1010/05/24 History lisinopril 20 1 tab PO DAILY blood pressur e 03/10/20 10/05/24 History mg-hydrochlorothiazide 25 mg tablet tamsulosin 0.4 mg capsule 0.4 mg PO Q24H retention 10/11/24 History cholecalciferol (vitamin D3) 50 50 mcg PO DAILY supple ment 11/09/22 10/11/24 History mcg (2,000 unit) tablet empagliflozin 25 mg tablet 25 mg PO DAILY diabetes 10/05/24 History (Jardiance) gabapentin 100 mg capsule 100 mg PO Q8H pain/neurapath y 11/09/22 10/11/24 History pravastatin 20 mg tablet 20 mg PO DAILY cholesterol 0 11/09/22 10/10/24 History cyclobenzaprine 10 mg tablet 10 mg PO TID pain 5 10/11/24 History omeprazole 20 mg capsule,delayed 20 mg PO DAILY heartb urn 10/05/24 10/11/24 History release propranolol 20 mg tablet 20 mg PO BID blood pressure 10/05/24 10/11/24 History acetaminophen 500 mg tablet 1,000 mg (2 x 500 mg) PO Q 8 PRN 10/11/24 10/11/24 Rx pain #0 tabs doxycycline monohydrate 100 mg 100 mg PO BID infection #14 caps 10/11/24 10/11/24 Rx capsule enoxaparin 40 mg/0.4 mL 40 mg (0.4 mL) subcut DAILY blood 10/11/24 10/11/24 Rx subcutaneous syringe thinner #0 mL insulin glargine-yfgn 100 unit/mL 20 unit (0.2 mL) sub cut BID Blood 10/11/24 10/11/24 Rx (3 mL) subcutaneous pen sugar #0 mL insulin lispro 100 unit/mL See Protocol subcut ACHS Bl ood 10/11/24 10/11/24 Rx subcutaneous pen (Humalog KwikPen sugar #0 mL (U-100) Insulin) melatonin 3 mg tablet 3 mg PO QHS PRN PRN Insomnia #0 10/11/24 Unknown Rx tabs oxycodone 5 mg tablet 5 mg PO Q4H PRN PRN Pain Sco re 10/11/24 10/11/24 Rx 1-10 3 days #12 tabs Allergy/AdvReac Type Severity Reaction Status Date / Time No Known Allergies Allergy Verified 10/10/24 11:37 Surgical History History of partial amputation of toe of right foot h/o appendectomy Social History (Updated 10/11/24 @ 16:[address] Ion Vega MD) household members: spouse Smoking Status: Never smoker alcohol intake: never substance use type: does not use ROS Constitutional Constitutional: Denies chills, fever(s) or weight gain ENT HEENT: Denies headache(s), nasal congestion or nasal discharge Cardiovascular Cardiovascular: Denies chest pain or palpitations Respiratory/Chest Respiratory/Chest: Denies cough, excessive phlegm production or shortness of breath with exertion Gastrointestinal Gastrointestinal: Denies abdominal pain, nausea or vomiting Genitourinary Genitourinary: Denies dysuria Musculoskeletal Musculoskeletal: Denies joint pain or joint swelling Integumentary Integumentary: Denies rash or wounds Neurologic Neurologic: Denies focal weakness, numbness or tingling Psychiatric Psychiatric: Denies anxiety, auditory hallucinations, depression, homicidal ideation or suicidal ideation Vital Signs Vital Signs Vital Signs: 10/11/24 15:30 Temperature 97.6 F L Temperature Source Temporal Pulse Rate 70 Respiratory Rate 13 Blood Pressure 187/90 H Blood Pressure Mean 122 Blood Pressure Source Monitor Blood Pressure Position Semi-Fowlers Blood Pressure Location Left Arm Pulse Ox 97 Oxygen Delivery Method Room Air Weight Weight: 108.635 kg Body Mass Index (BMI) 33.4 Physical Exam Const alert General Appearance: cooperative HEENT normocephalic Eyes PERRL and EOMs intact bilaterally Neck supple, no JVD and no carotid bruits Resp normal respiratory effort, normal air movement and clear to auscultation bilaterally Cardio regular rate and regular rhythm GI normal to inspection, nondistended, normoactive bowel sounds, non-tender and non-distended Extremity normal capillary refill Extremity Narrative: Right 3rd toe amputation, dressing, boot. 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 Davis, complicated by acute kidney injury, admitted to TCU with debility, here for rehabilitation, strengthening, prior to discharge home with . * Debility - PT/OT. * Pain - Tylenol 1000mg q6 prn pain (1-5), Oxycodone 5mg q4 prn pain (6-10). * Bowel - Miralax 17gm bid, senna/colace 2 tablets bid, Magnesium citrate 300mL daily prn, Soap suds enema x 1. * Adult immunization - Administer pneumonia vaccine, covid vaccine, flu vaccine as appropriate. * DVT prophylaxis - Lovenox 40mg sc daily. * Parkinson Disease - Sinemet 25/250mg 2 tablets bidac. * Vitamin D deficiency - D3 50mcg daily. * Muscle spasm - Flexeril 10mg tid. 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 Davis to follow. * Diabetes Mellitus II - Glimepiride 4mg daily, Jardiance 25mg daily, Glargine 20 units bid. * Diabetic polyneuropathy - Gabapentin 100mg q8. * Hypertension - Propranolol 20mg bid, Lisinopril 20mg daily, HCTZ 25mg daily. * Insomnia - Melatonin 3mg qhs. * GERD - Pantoprazole 20mg daily. * Hyperlipidemia - Pravastatin 20mg qhs. * BPH - Tamsulosin 0.4mg daily. 10/11/24 1636 Cosigner Signature (if applicable): CC: Dr. Elana Hickman DO; Dr. Ion Vega MD~ Signed [facility]08-29-2025 [facility] Discharge summary Author Ryne Steward [facility] Note Date/Time October 11, 2024 12 :18pm [facility] Medical Records Department [address] [place] [address] Discharge Summary 10/11/24 1216 MR#: [id number] Acct: [id number] Name: AMBROCIO JEFFERS Rep #:[id number] : 1950 74 From: Ryne Steward DO PCP: Dr. Elana Hickman DO Status:ADM IN Location: [place] [id number] Providers Date of Admission: 10/05/24 Primary Care Physician: Dr. Elana Hickman DO Consultations 10/05/24 15:38 Consult: Onc/Wound/thread separator Routine Comment: Reason for Consult:: right foot/toe wound w/ RLE cellulitis 10/08/24 08:32 Consult: Podiatry Routine Consulting Provider: Elana Davis Reason for Consult: right 3rd toe osteomyelitis EMERGENT Consult: No Notified: Yes Date Notified: 10/08/24 Time Notified: 08:32 Method of Notification: Text 10/08/24 13:46 Consult: Infectious Disease Routine Consulting Provider: Ever Schreiber Reason for Consult: toe osteomyelitis EMERGENT Consult: No Notified: Yes Date Notified: 10/08/24 Time Notified: 13:46 Method of Notification: Text Reason For Visit: RLE CELLULITIS AND WEAKNESS Diagnosis Discharge Diagnosis (1) Cellulitis of leg, right: Status: Acute Code(s): L03.115 - Cellulitis of right lower limb Plan: On IV vancomycin Began today after debridement of his left third toe. Concerned that the third toe could be the nidus of the infection. MRI showed osteomyelitis of right 3rd toe. Amputation of 3rd digit right foot on 10/10 Duplex of RLE given the edema showed no DVT. Culture showing MRSA from September 10 Per ID, plan for discharge with 7 days of doxycycline 100 twice daily. (2) Debility: Status: Acute Code(s): R53.81 - Other malaise Plan: requires much assistance for ambulation and this will be further complicated by surgery and off-loading, additionally complicated by Parkinson's disease Plan for SNF when medically stable. Plan Chronic conditions: * DM2: glargine and SSI. resume empagliflozin as outpt. * parkinson's disease: carbidopa/levodopa * BPH: flomax VTE prophylaxis: LMWH. Disposition: To TCU today. Medications at Discharge Home Medications carbidopa 25 mg-levodopa 250 mg tablet 2 tab PO BID parkinsons 03/10/20 glimepiride 4 mg tablet 4 mg PO DAILY diabetes 03/10/20 lisinopril 20 mg-hydrochlorothiazide 25 mg tablet 1 tab PO DAILY blood pressure 03/10/20 tamsulosin 0.4 mg capsule 0.4 mg PO Q24H retention 03/10/20 cholecalciferol (vitamin D3) 50 mcg (2,000 unit) tablet 50 mcg PO DAILY supplement 11/09/22 empagliflozin 25 mg tablet (Jardiance) 25 mg PO DAILY diabetes 11/09/22 gabapentin 100 mg capsule 100 mg PO Q8H pain/neurapathy 11/09/22 pravastatin 20 mg tablet 20 mg PO DAILY cholesterol 11/09/22 cyclobenzaprine 10 mg tablet 10 mg PO TID pain 10/05/24 omeprazole 20 mg capsule,delayed release 20 mg PO DAILY heartburn 10/05/24 propranolol 20 mg tablet 20 mg PO BID blood pressure 10/05/24 acetaminophen 500 mg tablet 1,000 mg (2 x 500 mg) PO Q8 PRN pain #0 tabs 10/11/24 doxycycline monohydrate 100 mg capsule 100 mg PO BID infection #14 caps 10/11/24 enoxaparin 40 mg/0.4 mL subcutaneous syringe 40 mg (0.4 mL) subcut DAILY #0 mL 10/11/24 insulin glargine-yfgn 100 unit/mL (3 mL) subcutaneous pen 20 unit (0.2 mL) subcut BID #0 mL 10/11/24 insulin lispro 100 unit/mL subcutaneous pen (Humalog KwikPen (U-100) Insulin) See Protocol subcut ACHS #0 mL 10/11/24 melatonin 3 mg tablet 3 mg PO QHS PRN PRN Insomnia #0 tabs 10/11/24 oxycodone 5 mg tablet 5 mg PO Q4H PRN PRN Pain Score 1-10 3 days #12 tabs 10/11/24 Hospital Course Operations - (Imitation of third right toe.) Summary of Care Provided Minutes Spent on Discharge: 35 Hospital Course: This is a 74-year-old male presents with right lower extremity cellulitis. The nidus of the cellulitis was likely his right third toe was he had an ulcer that is been attended to by podiatry. Patient underwent an MRI that showed osteomyelitis of the right third toe. Podiatry was consulted and patient underwent a amputation of the right third toe on the . Cultures were drawn at this time which are pending at the time of this dictation. Previously it hadbeen MRSA from cultures on the wound from August. But the patient had resection of all of the infected bone. Patient was seen by podiatry recommends 7 more days of doxycycline complete antibiotics. Patient does have Parkinson's and is debilitated and does require assistance so the plan is for him to go to the transitional care unit today. Weight / BMI Weight Weight: 108.8 kg Body Mass Index (BMI) 33.4 ABG / Lab / Microbiology Data 10/11/24 05:58 10/11/24 05:58 Laboratory: Laboratory Results - last 24 hr 10/10/24 16:23: POC Glucose 165 H 10/10/24 22:41: POC Glucose 183 H 10/11/24 05:58: WBC 6.4, RBC 4.42 L, Hgb 13.4, Hct 40.1, MCV 90.7, MCH 30.3, MCHC 33.4, RDW Std Deviation 40.7, RDW Coeff of Brant 12.1, Plt Count 250, MPV 10.3, Immature Gran % (Auto) 1.400 H, Neut % (Auto) 68.8, Lymph % (Auto) 13.9 L,[place] % (Auto) 10.3 H, Eos % (Auto) 4.7, Baso % (Auto) 0.9, Absolute Neuts (auto)4.4, Absolute Lymphs (auto) 0.89, Nucleated RBC % 0, Differential Comment SCANNED, Atypical Lymphocytes RARE, Plt Morphology Comment GIANT, Sodium 139, Potassium 3.6, Chloride 103, Carbon Dioxide 23.8, Anion Gap 12, BUN 29 H, Creatinine 0.98, Estim Creat Clear Calc 84.22, Est GFR (MDRD) Non-Af 81, BUN/Creatinine Ratio 29.1 H, Glucose 268 H, Calcium 8.5 10/11/24 06:40: POC Glucose 242 H 10/11/24 11:13: POC Glucose 219 H Microbiology: Microbiology 10/10/24 Unknown Tissue - 3rd Toe Gram Stain - Final 10/10/24 Unknown Tissue - 3rd Toe Wound Culture - Preliminary Gram negative bertha 10/10/24 Unknown Bone - 3rd Toe Gram Stain - Final 10/10/24 Unknown Bone - 3rd Toe Wound Culture - Preliminary Gram negative bertha Radiography Diagnostic Testing: Radiology Impression C-Arm Fluoroscopy 10/10/24 11:30 IMPRESSION: Intraoperative fluoroscopy was performed for amputation of the right 3rd toe. 2fluoroscopic images are also obtained. Reading Location: [place] [address] Foot X-Ray 10/10/24 11:30 IMPRESSION: Intraoperative fluoroscopy was performed for amputation of the right 3rd toe. 2fluoroscopic images are also obtained. Reading Location: [place] [address] D/C Instructions DC O2, CPAP, BIPAP Needs Home O2 Discharge instructions: No Meaningful Use Info Meaningful Use Meaningful Use Diagnoses (Choose all that apply): None applicable Discharge Plan Admission Admit Date/Time: 10/05/24 14:29 Primary Reason for Your Visit: Right third toe osteomyelitis Attending Provider: Ryne Steward Primary Care Provider: Elana Hickman Consulting Providers: Stephen Deal; Silvia Son; Elana Davis; Ever Schreiber Instructions Additional Instructions / Restrictions: Patient is to continue to elevate the right foot at all times rest for postoperative edema control May apply ice behind the right knee for postoperative pain control He is to keep all dressings clean, dry, and intact to the right foot He may continue ambulation in a protected weightbearing status utilizing his surgical shoe to the right foot. Discharge Orders/Prescriptions Prescriptions: New acetaminophen 500 mg Tablet 1,000 mg PO Q8 PRN (Reason: pain) Qty: 0 0RF enoxaparin 40 mg/0.4 mL Syringe 40 mg subcut DAILY Qty: 0 0RF insulin lispro [Humalog KwikPen Insulin] 100 unit/mL Insulin Pen See Protocol subcut ACHS Qty: 0 0RF Protocol: 4. Sliding Scale Insulin High-Med Dosing Condition: 150-199 mg/dl = 2 units Condition: 200-259 mg/dl = 4 units Condition: 260-324 mg/dl = 6 units Condition: 325-374 mg/dl = 8 units Condition: 375-409 mg/dl = 10 units Condition: 410-449 mg/dl = 11 units Condition: Greater than 449 call physician Protocol Text: Suggested for: - Patients on Total Daily Insulin Dose of 56-80 units - Patient who are known to be insulin resistant or septic HIGH MEDIUM DOSING ALGORITHM melatonin 3 mg Tablet 3 mg PO QHS PRN PRN (Reason: Insomnia) Qty: 0 0RF oxycodone 5 mg Tablet 5 mg PO Q4H PRN PRN (Reason: Pain Score 1-10) 3 Days Qty: 12 0RF insulin glargine-yfgn 100 unit/mL (3 mL) Insulin Pen 20 unit subcut BID Qty: 0 0RF Continued glimepiride 4 mg tablet 4 mg PO DAILY Patient Comments: TAKE 1 TABLET BY MOUTH EVERY DAY lisinopril-hydrochlorothiazide 20-25 mg tablet 1 tab PO DAILY carbidopa-levodopa 25-250 mg tablet 2 tab PO BID tamsulosin 0.4 mg capsule 0.4 mg PO Q24H cholecalciferol (vitamin D3) 50 mcg (2,000 unit) tablet 50 mcg PO DAILY Patient Comments: TAKE 1 TABLET BY MOUTH EVERY DAY pravastatin 20 mg tablet 20 mg PO DAILY Patient Comments: TAKE 1 TABLET BY MOUTH EVERY OTHER DAY Jardiance 25 mg tablet 25 mg PO DAILY gabapentin 100 mg capsule 100 mg PO Q8H Patient Comments: TAKE 1 CAPSULE BY MOUTH TWICE A DAY cyclobenzaprine 10 mg tablet 10 mg PO TID omeprazole 20 mg capsule,delayed release(DR/EC) 20 mg PO DAILY propranolol 20 mg tablet 20 mg PO BID doxycycline monohydrate 100 mg capsule 100 mg PO BID Qty: 14 0RF Discontinued Humulin 70/30 U-100 Insulin 100 unit/mL (70-30) suspension 30 unit SUBCUT .daily AM Patient Comments: INJECT 30 UNITS UNDER THE SKIN DAILY BEFORE breakfast AND 20 UNITS EVERY EVENING BEFORE dinner Novolin 70-30 FlexPen U-100 100 unit/mL (70-30) insulin pen 20 unit subcut .daily HS Referrals / Follow Up: Elana Hickman DO [Primary Care Provider] - Within 2 Weeks Elana Davis DPM [Med Staff - Active Staff] - In 1 Week Disposition Disposition (needs filled in before D/C Order can be placed): [facility] Charges/Coding Visit Charges Inpatient E&M: 41251 Disch Hosp >30min 10/11/24 1218 <Electronically signed by Ryne Steward DO> Cosigner Signature (if applicable): CC: Dr. Ryne Steward DO; Dr. Elana Hickman DO~ Signed [facility] Work Phone: 1(853) 181-911708-29-2025 Discharge summary Author Ryne Steward [facility] Note Date/Time October 11, 2024 12 :16pm [facility] Medical Records Department [address] [place] [address] Transfer to [facility] MR#: [id number] Acct: [id number] Name: AMBROCIO JEFFERS Rep #:[id number] : 1950 74 From: Ryne Steward DO PCP: Dr. Elana Hickman, DO Status:ADM IN Certification of patient admission REQUIRED AT TIME OF ADMISSION. I CERTIFY THAT POST-HOSPITAL ECF SERVICES ARE REQUIRED TO BE GIVEN ON AN IN-PATIENT BASIS BECAUSE OF THE ABOVE NAMED PATIENT'S NEED FOR PENITENTIARY CARE ON A CONTINUING BASIS FOR THE CONDITION(S) FOR WHICH HE/SHE WAS RECEIVING IN-PATIENT HOSPITAL SERVICES PRIOR TO HIS/HER TRANSFER TO THE ECF. 10/11/24 1216<Electronically signed by Ryne Steward DO> Diet Diet Order/Speech Therapy: INPATIENT Hospital Diet / Speech Therapy Order(s) 10/05/24 15:38 Diet: Consistent Carb - Calorie Controlled Food consistency:: Regular Liquid Consistency:: Regular/Thin Type of Dietary Supplement:: Rohit Diet Comments: Rohit BID How many daily calories?: 2000 calorie Routine Orders/Code Status Routine Lab Work: CBC and BMP Code Status: DNRCC-A (no intubation. ) DC O2, CPAP, BIPAP needs Home O2 Discharge instructions: No Wound(s) Left Knee: Wound Type: Abrasion Right Knee: Wound Type: Abrasion Right third toe, debridement by podiatry 10/01 outpatient: Wound Type: Neuropathic/Diabetic Foot Ulcer Dressing Change: betadine with dry dressing L medial ankle: Wound Type: Abrasion right foot: Wound Type: incision at R 3rd toe amputation site Dressing Change: betadine Adaptic Therapies Weight Bearing: Weight bearing as tolerated (surgical shoe with ambulation. ) Extremity Affected:: Right Lower Problem/Diagnosis (1) Cellulitis of leg, right: Status: Acute Code(s): L03.115 - Cellulitis of right lower limb Plan: On IV vancomycin Began today after debridement of his left third toe. Concerned that the third toe could be the nidus of the infection. MRI showed osteomyelitis of right 3rd toe. Amputation of 3rd digit right foot on 10/10 Duplex of RLE given the edema showed no DVT. Culture showing MRSA from September 10 Per ID, plan for discharge with 7 days of doxycycline 100 twice daily. (2) Debility: Status: Acute Code(s): R53.81 - Other malaise Plan: requires much assistance for ambulation and this will be further complicated by surgery and off-loading, additionally complicated by Parkinson's disease Plan for SNF when medically stable. Plan Chronic conditions: * DM2: glargine and SSI. resume empagliflozin as outpt. * parkinson's disease: carbidopa/levodopa * BPH: flomax VTE prophylaxis: LMWH. Disposition: To TCU today. Allergies/Procedures Done in Hospital Allergies No Known Allergies Allergy (Verified 10/10/24 11:37) Procedures: - (Amputation of right third toe.) Type of Care/Length of Stay Estimated LOS: Convalescent Care Less Than 30 days Type of Care Needed: Skilled Rehab Potential: Fair Prognosis: Good Additional Orders/Day of Discharge Day of Discharge: 10/11/24 Dietary and Speech Recommendations Dietitian Recommendations/Changes: Will continue 2000 calorie/consistent carbohydrate diet. Will add Rohit BID to support wound healing. Discharge Plan Admission Admit Date/Time: 10/05/24 14:29 Primary Reason for Your Visit: Right third toe osteomyelitis Attending Provider: Ryne Steward Primary Care Provider: Elana Hickman Consulting Providers: Stephen Deal; Silvia Son; Elana Davis; Ever Schreiber Instructions Additional Instructions / Restrictions: Patient is to continue to elevate the right foot at all times rest for postoperative edema control May apply ice behind the right knee for postoperative pain control He is to keep all dressings clean, dry, and intact to the right foot He may continue ambulation in a protected weightbearing status utilizing his surgical shoe to the right foot. Discharge Orders/Prescriptions Prescriptions: New acetaminophen 500 mg Tablet 1,000 mg PO Q8 PRN (Reason: pain) Qty: 0 0RF enoxaparin 40 mg/0.4 mL Syringe 40 mg subcut DAILY Qty: 0 0RF insulin lispro [Humalog KwikPen Insulin] 100 unit/mL Insulin Pen See Protocol subcut ACHS Qty: 0 0RF Protocol: 4. Sliding Scale Insulin High-Med Dosing Condition: 150-199 mg/dl = 2 units Condition: 200-259 mg/dl = 4 units Condition: 260-324 mg/dl = 6 units Condition: 325-374 mg/dl = 8 units Condition: 375-409 mg/dl = 10 units Condition: 410-449 mg/dl = 11 units Condition: Greater than 449 call physician Protocol Text: Suggested for: - Patients on Total Daily Insulin Dose of 56-80 units - Patient who are known to be insulin resistant or septic HIGH MEDIUM DOSING ALGORITHM melatonin 3 mg Tablet 3 mg PO QHS PRN PRN (Reason: Insomnia) Qty: 0 0RF oxycodone 5 mg Tablet 5 mg PO Q4H PRN PRN (Reason: Pain Score 1-10) 3 Days Qty: 12 0RF insulin glargine-yfgn 100 unit/mL (3 mL) Insulin Pen 20 unit subcut BID Qty: 0 0RF Continued glimepiride 4 mg tablet 4 mg PO DAILY Patient Comments: TAKE 1 TABLET BY MOUTH EVERY DAY lisinopril-hydrochlorothiazide 20-25 mg tablet 1 tab PO DAILY carbidopa-levodopa 25-250 mg tablet 2 tab PO BID tamsulosin 0.4 mg capsule 0.4 mg PO Q24H cholecalciferol (vitamin D3) 50 mcg (2,000 unit) tablet 50 mcg PO DAILY Patient Comments: TAKE 1 TABLET BY MOUTH EVERY DAY pravastatin 20 mg tablet 20 mg PO DAILY Patient Comments: TAKE 1 TABLET BY MOUTH EVERY OTHER DAY Jardiance 25 mg tablet 25 mg PO DAILY gabapentin 100 mg capsule 100 mg PO Q8H Patient Comments: TAKE 1 CAPSULE BY MOUTH TWICE A DAY cyclobenzaprine 10 mg tablet 10 mg PO TID omeprazole 20 mg capsule,delayed release(DR/EC) 20 mg PO DAILY propranolol 20 mg tablet 20 mg PO BID doxycycline monohydrate 100 mg capsule 100 mg PO BID Qty: 14 0RF Discontinued Humulin 70/30 U-100 Insulin 100 unit/mL (70-30) suspension 30 unit SUBCUT .daily AM Patient Comments: INJECT 30 UNITS UNDER THE SKIN DAILY BEFORE breakfast AND 20 UNITS EVERY EVENING BEFORE dinner Novolin 70-30 FlexPen U-100 100 unit/mL (70-30) insulin pen 20 unit subcut .daily HS Referrals / Follow Up: Elana Hickman DO [Primary Care Provider] - Within 2 Weeks Elana Davis DPM [Med Staff - Active Staff] - In 1 Week Disposition Disposition (needs filled in before D/C Order can be placed): [facility] 10/11/24 1216 <Electronically signed by Ryne Steward DO> Cosigner Signature (if applicable): CC: LEEROY Davis; Dr. Stephen Deal DO; Dr. Elana Hickman DO; Dr. Silvia Son MD; Dr. Ever Schreiber MD ~ [facility] Work Phone: [phone] Progress note Author Ryne Steward [facility] Note Date/Time October 11, 2024 12 :08pm [facility] Medical Records Department [address] [place] [address] Progress Note - Hospitalist 10/11/24 0727 MR#: [id number] Acct: [id number] Name: AMBROCIO JEFFERS Rep #:[id number] : 1950 74 From: Ryne Steward DO PCP: Dr. Elana Hickman DO Status:ADM IN Location: MS3 [id number] Reason for Visit Chief Complaint: Right foot/ankle pain and swelling and generalized weakness Subjective Subjective Feels well. Denies pain. Objective Data Objective Data Vital Signs: Vital Signs Temp Pulse Resp BP Pulse Ox O2 Del Method 36.3 C L 65 16 167/79 H 95 Room Air 10/11/24 03:00 10/11/24 03:00 10/11/24 03:00 10/11/24 03:00 10/11/24 03:00 10/11/24 03:00 Oxygen Delivery Method Room Air Weight: 108.8 kg Body Mass Index (BMI) 33.4 Intake & Output: Intake and Output for Last 24 Hours 10/09/24 10/10/24 10/11/24 23:59 23:59 23:59 Intake Total 1200 / 1200 595 / 595 270 / 270 Output Total 1500 / 1500 1410 / 1410 650 / 650 Balance -300 / -300 -815 / -815 -380 / -380 Lab / Micro Data 10/11/24 05:58 10/11/24 05:58 Labs: Laboratory Results - last 24 hr 10/10/24 06:05: WBC 7.8, RBC 4.60, Hgb 14.2, Hct 41.7, MCV 90.7, MCH 30.9, MCHC 34.1, RDW Std Deviation 41.0, RDW Coeff of Brant 12.4, Plt Count 260, MPV 10.7, Immature Gran % (Auto) 0.800, Neut % (Auto) 73.6 H, Lymph % (Auto) 10.7 L, Sanborn % (Auto) 10.7 H, Eos % (Auto) 3.8, Baso % (Auto) 0.4, Absolute Neuts (auto) 5.8,Absolute Lymphs (auto) 0.84, Nucleated RBC % 0, Sodium 140, Potassium 3.5, Chloride 103, Carbon Dioxide 24.4, Anion Gap 13, BUN 27 H, Creatinine 1.05, Estim Creat Clear Calc 78.61, Est GFR (MDRD) Non-Af 75, BUN/Creatinine Ratio 25.3 H, Glucose 144 H, Calcium 8.6 10/10/24 08:03: POC Glucose 121 H 10/10/24 11:12: Vancomycin Trough 16.5 H 10/10/24 16:23: POC Glucose 165 H 10/10/24 22:41: POC Glucose 183 H 10/11/24 05:58: WBC 6.4, RBC 4.42 L, Hgb 13.4, Hct 40.1, MCV 90.7, MCH 30.3, MCHC 33.4, RDW Std Deviation 40.7, RDW Coeff of Brant 12.1, Plt Count 250, MPV 10.3, Immature Gran % (Auto) 1.400 H, Neut % (Auto) 68.8, Lymph % (Auto) 13.9 L,Sanborn % (Auto) 10.3 H, Eos % (Auto) 4.7, Baso % (Auto) 0.9, Absolute Neuts (auto)4.4, Absolute Lymphs (auto) 0.89, Nucleated RBC % 0, Differential Comment SCANNED, Atypical Lymphocytes RARE, Plt Morphology Comment GIANT, Sodium 139, Potassium 3.6, Chloride 103, Carbon Dioxide 23.8, Anion Gap 12, BUN 29 H, Creatinine 0.98, Estim Creat Clear Calc 84.22, Est GFR (MDRD) Non-Af 81, BUN/Creatinine Ratio 29.1 H, Glucose 268 H, Calcium 8.5 10/11/24 06:40: POC Glucose 242 H Radiography Diagnostic Testing: Radiology Impression C-Arm Fluoroscopy 10/10/24 11:30 IMPRESSION: Intraoperative fluoroscopy was performed for amputation of the right 3rd toe. 2fluoroscopic images are also obtained. Reading Location: [facility] Foot X-Ray 10/10/24 11:30 IMPRESSION: Intraoperative fluoroscopy was performed for amputation of the right 3rd toe. 2fluoroscopic images are also obtained. Reading Location: [place] [address] Physical Exam Const alert and no apparent distress HEENT head/scalp atraumatic and moist oral mucous membranes Resp normal respiratory effort, no retractions, no use of accessory muscles and clearto auscultation bilaterally Cardio regular rate, regular rhythm, S1 normal heart sound and S2 normal heart sound GI normal to inspection, nondistended, normoactive bowel sounds, soft to palpation,non-tender and non-distended Extremity Extremity Narrative: Right foot bandaged and wrapped. Neuro Sensorium / Orientation: awake and alert Assessment & Plan Assessment/Plan (1) Cellulitis of leg, right: PLAN: On IV vancomycin Began today after debridement of his left third toe. Concerned that the third toe could be the nidus of the infection. MRI showed osteomyelitis of right 3rd toe. Amputation of 3rd digit right foot on 10/10 Duplex of RLE given the edema showed no DVT. Culture showing MRSA from September 10 Per ID, plan for discharge with 7 days of doxycycline 100 twice daily. (2) Debility: PLAN: requires much assistance for ambulation and this will be further complicated by surgery and off-loading, additionally complicated by Parkinson's disease Plan for SNF when medically stable. PLAN: Plan Chronic conditions: * DM2: glargine and SSI. resume empagliflozin as outpt. * parkinson's disease: carbidopa/levodopa * BPH: flomax VTE prophylaxis: LMWH. Disposition: To TCU today. 10/11/24 1208 <Electronically signed by Ryne Steward DO> Cosigner Signature (if applicable): CC: ~ Signed [facility] Work Phone: [phone] Discharge summary [facility] Medical Records Department [address] [place] [address] Discharge Summary 10/11/24 1216 MR#: [id number] Acct: [id number] Name: AMBROCIO JEFFERS Rep #:[id number] : 1950 74 From: Ryne Steward DO PCP: Dr. Elana Hickman, DO Status:ADM IN Location: [facility] [id number] Providers Date of Admission: 10/05/24 Primary Care Physician: Dr. Elana Hickman, DO Consultations 10/05/24 15:38 Consult: Onc/Wound/thread separator Routine Comment: Reason for Consult:: right foot/toe wound w/ RLE cellulitis 10/08/24 08:32 Consult: Podiatry Routine Consulting Provider: Elana Davis Reason for Consult: right 3rd toe osteomyelitis EMERGENT Consult: No Notified: Yes Date Notified: 10/08/24 Time Notified: 08:32 Method of Notification: Text 10/08/24 13:46 Consult: Infectious Disease Routine Consulting Provider: Ever Schreiber Reason for Consult: toe osteomyelitis EMERGENT Consult: No Notified: Yes Date Notified: 10/08/24 Time Notified: 13:46 Method of Notification: Text Reason For Visit: RLE CELLULITIS AND WEAKNESS Diagnosis Discharge Diagnosis (1) Cellulitis of leg, right: Status: Acute Code(s): L03.115 - Cellulitis of right lower limb Plan: On IV vancomycin Began today after debridement of his left third toe. Concerned that the third toe could be the nidus of the infection. MRI showed osteomyelitis of right 3rd toe. Amputation of 3rd digit right foot on 10/10 Duplex of RLE given the edema showed no DVT. Culture showing MRSA from September 10 Per ID, plan for discharge with 7 days of doxycycline 100 twice daily. (2) Debility: Status: Acute Code(s): R53.81 - Other malaise Plan: requires much assistance for ambulation and this will be further complicated by surgery and off-loading, additionally complicated by Parkinson's disease Plan for SNF when medically stable. Plan Chronic conditions: * DM2: glargine and SSI. resume empagliflozin as outpt. * parkinson's disease: carbidopa/levodopa * BPH: flomax VTE prophylaxis: LMWH. Disposition: To TCU today. Medications at Discharge Home Medications carbidopa 25 mg-levodopa 250 mg tablet 2 tab PO BID parkinsons 03/10/20 glimepiride 4 mg tablet 4 mg PO DAILY diabetes 03/10/20 lisinopril 20 mg-hydrochlorothiazide 25 mg tablet 1 tab PO DAILY blood pressure 03/10/20 tamsulosin 0.4 mg capsule 0.4 mg PO Q24H retention 03/10/20 cholecalciferol (vitamin D3) 50 mcg (2,000 unit) tablet 50 mcg PO DAILY supplement 11/09/22 empagliflozin 25 mg tablet (Jardiance) 25 mg PO DAILY diabetes 11/09/22 gabapentin 100 mg capsule 100 mg PO Q8H pain/neurapathy 11/09/22 pravastatin 20 mg tablet 20 mg PO DAILY cholesterol 11/09/22 cyclobenzaprine 10 mg tablet 10 mg PO TID pain 10/05/24 omeprazole 20 mg capsule,delayed release 20 mg PO DAILY heartburn 10/05/24 propranolol 20 mg tablet 20 mg PO BID blood pressure 10/05/24 acetaminophen 500 mg tablet 1,000 mg (2 x 500 mg) PO Q8 PRN pain #0 tabs 10/11/24 doxycycline monohydrate 100 mg capsule 100 mg PO BID infection #14 caps 10/11/24 enoxaparin 40 mg/0.4 mL subcutaneous syringe 40 mg (0.4 mL) subcut DAILY #0 mL 10/11/24 insulin glargine-yfgn 100 unit/mL (3 mL) subcutaneous pen 20 unit (0.2 mL) subcut BID #0 mL 10/11/24 insulin lispro 100 unit/mL subcutaneous pen (Humalog KwikPen (U-100) Insulin) See Protocol subcut ACHS #0 mL 10/11/24 melatonin 3 mg tablet 3 mg PO QHS PRN PRN Insomnia #0 tabs 10/11/24 oxycodone 5 mg tablet 5 mg PO Q4H PRN PRN Pain Score 1-10 3 days #12 tabs 10/11/24 Hospital Course Operations - (Imitation of third right toe.) Summary of Care Provided Minutes Spent on Discharge: 35 Hospital Course: This is a 74-year-old male presents with right lower extremity cellulitis. The nidus of the cellulitis was likely his right third toe was he had an ulcer that is been attended to by podiatry. Patientunderwent an MRI that showed osteomyelitis of the right third toe. Podiatry was consulted and patient underwent a amputation of the right third toe on the . Cultures were drawn at this time whichare pending at the time of this dictation. Previously it hadbeen MRSA from cultures on the wound from August. But the patient had resection of all of the infected bone. Patient was seen by podiatry recommends 7 more days of doxycycline complete antibiotics. Patient does have Parkinson's and is debilitated and does require assistance so the plan is for him to go to the transitional care unit today. Weight / BMI Weight Weight: 108.8 kg Body Mass Index (BMI) 33.4 ABG / Lab / Microbiology Data 10/11/24 05:58 10/11/24 05:58 Laboratory: Laboratory Results - last 24 hr 10/10/24 16:23: POC Glucose 165 H 10/10/24 22:41: POC Glucose 183 H 10/11/24 05:58: WBC 6.4, RBC 4.42 L, Hgb 13.4, Hct 40.1, MCV 90.7, MCH 30.3, MCHC 33.4, RDW Std Deviation 40.7, RDW Coeff of Brant 12.1, Plt Count 250, MPV 10.3, Immature Gran % (Auto) 1.400 H, Neut % (Auto) 68.8, Lymph % (Auto) 13.9 L,Sanborn % (Auto) 10.3 H, Eos % (Auto) 4.7, Baso % (Auto) 0.9, Absolute Neuts (auto)4.4, Absolute Lymphs (auto) 0.89, Nucleated RBC % 0, Differential Comment SCANNED, Atypical Lymphocytes RARE, Plt Morphology Comment GIANT, Sodium 139, Potassium 3.6, Chloride 103, Carbon Dioxide 23.8, Anion Gap 12, BUN 29 H, Creatinine 0.98, Estim Creat Clear Calc 84.22, Est GFR (MDRD) Non-Af 81, BUN/Creatinine Ratio 29.1 H, Glucose 268 H, Calcium 8.5 10/11/24 06:40: POC Glucose 242 H 10/11/24 11:13: POC Glucose 219 H Microbiology: Microbiology 10/10/24 Unknown Tissue - 3rd Toe Gram Stain - Final 10/10/24 Unknown Tissue - 3rd Toe Wound Culture - Preliminary Gram negative bertha 10/10/24 Unknown Bone - 3rd Toe Gram Stain - Final 10/10/24 Unknown Bone - 3rd Toe Wound Culture - Preliminary Gram negative bertha Radiography Diagnostic Testing: Radiology Impression C-Arm Fluoroscopy 10/10/24 11:30 IMPRESSION: Intraoperative fluoroscopy was performed for amputation of the right 3rd toe. 2fluoroscopic images are also obtained. Reading Location: [place] [address] Foot X-Ray 10/10/24 11:30 IMPRESSION: Intraoperative fluoroscopy was performed for amputation of the right 3rd toe. 2fluoroscopic images are also obtained. Reading Location: [place] [address] D/C Instructions DC O2, CPAP, BIPAP Needs Home O2 Discharge instructions: No Meaningful Use Info Meaningful Use Meaningful Use Diagnoses (Choose all that apply): None applicable Discharge Plan Admission Admit Date/Time: 10/05/24 14:29 Primary Reason for Your Visit: Right third toe osteomyelitis Attending Provider: Ryne Steward Primary Care Provider: Elana Hickman Consulting Providers: Stephen Deal; Silvia Son; Elana Davis; Ever Schreiber Instructions Additional Instructions / Restrictions: Patient is to continue to elevate the right foot at all times rest for postoperative edema control May apply ice behind the right knee for postoperative pain control He is to keep all dressings clean, dry, and intact to the right foot He may continue ambulation in a protected weightbearing status utilizing his surgical shoe to the right foot. Discharge Orders/Prescriptions Prescriptions: New acetaminophen 500 mg Tablet 1,000 mg PO Q8 PRN (Reason: pain) Qty: 0 0RF enoxaparin 40 mg/0.4 mL Syringe 40 mg subcut DAILY Qty: 0 0RF insulin lispro [Humalog KwikPen Insulin] 100 unit/mL Insulin Pen See Protocol subcut ACHS Qty: 0 0RF Protocol: 4. Sliding Scale Insulin High-Med Dosing Condition: 150-199 mg/dl = 2 units Condition: 200-259 mg/dl = 4 units Condition: 260-324 mg/dl = 6 units Condition: 325-374 mg/dl = 8 units Condition: 375-409 mg/dl = 10 units Condition: 410-449 mg/dl = 11 units Condition: Greater than 449 call physician Protocol Text: Suggested for: - Patients on Total Daily Insulin Dose of 56-80 units - Patient who are known to be insulin resistant or septic HIGH MEDIUM DOSING ALGORITHM melatonin 3 mg Tablet 3 mg PO QHS PRN PRN (Reason: Insomnia) Qty: 0 0RF oxycodone 5 mg Tablet 5 mg PO Q4H PRN PRN (Reason: Pain Score 1-10) 3 Days Qty: 12 0RF insulin glargine-yfgn 100 unit/mL (3 mL) Insulin Pen 20 unit subcut BID Qty: 0 0RF Continued glimepiride 4 mg tablet 4 mg PO DAILY Patient Comments: TAKE 1 TABLET BY MOUTH EVERY DAY lisinopril-hydrochlorothiazide 20-25 mg tablet 1 tab PO DAILY carbidopa-levodopa 25-250 mg tablet 2 tab PO BID tamsulosin 0.4 mg capsule 0.4 mg PO Q24H cholecalciferol (vitamin D3) 50 mcg (2,000 unit) tablet 50 mcg PO DAILY Patient Comments: TAKE 1 TABLET BY MOUTH EVERY DAY pravastatin 20 mg tablet 20 mg PO DAILY Patient Comments: TAKE 1 TABLET BY MOUTH EVERY OTHER DAY Jardiance 25 mg tablet 25 mg PO DAILY gabapentin 100 mg capsule 100 mg PO Q8H Patient Comments: TAKE 1 CAPSULE BY MOUTH TWICE A DAY cyclobenzaprine 10 mg tablet 10 mg PO TID omeprazole 20 mg capsule,delayed release(DR/EC) 20 mg PO DAILY propranolol 20 mg tablet 20 mg PO BID doxycycline monohydrate 100 mg capsule 100 mg PO BID Qty: 14 0RF Discontinued Humulin 70/30 U-100 Insulin 100 unit/mL (70-30) suspension 30 unit SUBCUT .daily AM Patient Comments: INJECT 30 UNITS UNDER THE SKIN DAILY BEFORE breakfast AND 20 UNITS EVERY EVENING BEFORE dinner Novolin 70-30 FlexPen U-100 100 unit/mL (70-30) insulin pen 20 unit subcut .daily HS Referrals / Follow Up: Elana Hickman DO [Primary Care Provider] - Within 2 Weeks Elana Davis DPM [Med Staff - Active Staff] - In 1 Week Disposition Disposition (needs filled in before D/C Order can be placed): [facility] Charges/Coding Visit Charges Inpatient E&M: 07545 Disch Hosp >30min 10/11/24 1218 Cosigner Signature (if applicable): CC: Dr. Ryne Steward DO; Dr. Elana Hickman DO~ Signed [facility]08-29-2025 Discharge summary [facility] Medical Records Department [address] [place] [address] Transfer to [facility] MR#: [id number] Acct: [id number] Name: AMBROCIO JEFFERS Rep #:[id number] : 1950 74 From: Ryne Steward DO PCP: Dr. Elana Hickman, DO Status:ADM IN Certification of patient admission REQUIRED AT TIME OF ADMISSION. I CERTIFY THAT POST-HOSPITAL ECF SERVICES ARE REQUIRED TO BE GIVEN ON AN IN-PATIENT BASIS BECAUSE OF THE ABOVE NAMED PATIENT'S NEED FOR PENITENTIARY CARE ON A CONTINUING BASIS FOR THE CONDITION(S) FOR WHICH HE/SHE WAS RECEIVING IN-PATIENT HOSPITAL SERVICES PRIOR TO HIS/HER TRANSFER TO THE ECF. 10/11/24 1216 Diet Diet Order/Speech Therapy: INPATIENT Hospital Diet / Speech Therapy Order(s) 10/05/24 15:38 Diet: Consistent Carb - Calorie Controlled Food consistency:: Regular Liquid Consistency:: Regular/Thin Type of Dietary Supplement:: Rohit Diet Comments: Rohit BID How many daily calories?: 1999 calorie Routine Orders/Code Status Routine Lab Work: CBC and BMP Code Status: DNRCC-A (no intubation. ) DC O2, CPAP, BIPAP needs Home O2 Discharge instructions: No Wound(s) Left Knee: Wound Type: Abrasion Right Knee: Wound Type: Abrasion Right third toe, debridement by podiatry 10/01 outpatient: Wound Type: Neuropathic/Diabetic Foot Ulcer Dressing Change: betadine with dry dressing L medial ankle: Wound Type: Abrasion right foot: Wound Type: incision at R 3rd toe amputation site Dressing Change: betadine Adaptic Therapies Weight Bearing: Weight bearing as tolerated (surgical shoe with ambulation. ) Extremity Affected:: Right Lower Problem/Diagnosis (1) Cellulitis of leg, right: Status: Acute Code(s): L03.115 - Cellulitis of right lower limb Plan: On IV vancomycin Began today after debridement of his left third toe. Concerned that the third toe could be the nidus of the infection. MRI showed osteomyelitis of right 3rd toe. Amputation of 3rd digit right foot on 10/10 Duplex of RLE given the edema showed no DVT. Culture showing MRSA from September 10 Per ID, plan for discharge with 7 days of doxycycline 100 twice daily. (2) Debility: Status: Acute Code(s): R53.81 - Other malaise Plan: requires much assistance for ambulation and this will be further complicated by surgery and off-loading, additionally complicated by Parkinson's disease Plan for SNF when medically stable. Plan Chronic conditions: * DM2: glargine and SSI. resume empagliflozin as outpt. * parkinson's disease: carbidopa/levodopa * BPH: flomax VTE prophylaxis: LMWH. Disposition: To TCU today. Allergies/Procedures Done in Hospital Allergies No Known Allergies Allergy (Verified 10/10/24 11:37) Procedures: - (Amputation of right third toe.) Type of Care/Length of Stay Estimated LOS: Convalescent Care Less Than 30 days Type of Care Needed: Skilled Rehab Potential: Fair Prognosis: Good Additional Orders/Day of Discharge Day of Discharge: 10/11/24 Dietary and Speech Recommendations Dietitian Recommendations/Changes: Will continue 2000 calorie/consistent carbohydrate diet. Will add Rohit BID to support wound healing. Discharge Plan Admission Admit Date/Time: 10/05/24 14:29 Primary Reason for Your Visit: Right third toe osteomyelitis Attending Provider: Ryne Steward Primary Care Provider: Elana Hickman Consulting Providers: Stephen Deal; Silvia Son; Elana Davis; Ever Schreiber Instructions Additional Instructions / Restrictions: Patient is to continue to elevate the right foot at all times rest for postoperative edema control May apply ice behind the right knee for postoperative pain control He is to keep all dressings clean, dry, and intact to the right foot He may continue ambulation in a protected weightbearing status utilizing his surgical shoe to the right foot. Discharge Orders/Prescriptions Prescriptions: New acetaminophen 500 mg Tablet 1,000 mg PO Q8 PRN (Reason: pain) Qty: 0 0RF enoxaparin 40 mg/0.4 mL Syringe 40 mg subcut DAILY Qty: 0 0RF insulin lispro [Humalog KwikPen Insulin] 100 unit/mL Insulin Pen See Protocol subcut ACHS Qty: 0 0RF Protocol: 4. Sliding Scale Insulin High-Med Dosing Condition: 150-199 mg/dl = 2 units Condition: 200-259 mg/dl = 4 units Condition: 260-324 mg/dl = 6 units Condition: 325-374 mg/dl = 8 units Condition: 375-409 mg/dl = 10 units Condition: 410-449 mg/dl = 11 units Condition: Greater than 449 call physician Protocol Text: Suggested for: - Patients on Total Daily Insulin Dose of 56-80 units - Patient who are known to be insulin resistant or septic HIGH MEDIUM DOSING ALGORITHM melatonin 3 mg Tablet 3 mg PO QHS PRN PRN (Reason: Insomnia) Qty: 0 0RF oxycodone 5 mg Tablet 5 mg PO Q4H PRN PRN (Reason: Pain Score 1-10) 3 Days Qty: 12 0RF insulin glargine-yfgn 100 unit/mL (3 mL) Insulin Pen 20 unit subcut BID Qty: 0 0RF Continued glimepiride 4 mg tablet 4 mg PO DAILY Patient Comments: TAKE 1 TABLET BY MOUTH EVERY DAY lisinopril-hydrochlorothiazide 20-25 mg tablet 1 tab PO DAILY carbidopa-levodopa 25-250 mg tablet 2 tab PO BID tamsulosin 0.4 mg capsule 0.4 mg PO Q24H cholecalciferol (vitamin D3) 50 mcg (2,000 unit) tablet 50 mcg PO DAILY Patient Comments: TAKE 1 TABLET BY MOUTH EVERY DAY pravastatin 20 mg tablet 20 mg PO DAILY Patient Comments: TAKE 1 TABLET BY MOUTH EVERY OTHER DAY Jardiance 25 mg tablet 25 mg PO DAILY gabapentin 100 mg capsule 100 mg PO Q8H Patient Comments: TAKE 1 CAPSULE BY MOUTH TWICE A DAY cyclobenzaprine 10 mg tablet 10 mg PO TID omeprazole 20 mg capsule,delayed release(DR/EC) 20 mg PO DAILY propranolol 20 mg tablet 20 mg PO BID doxycycline monohydrate 100 mg capsule 100 mg PO BID Qty: 14 0RF Discontinued Humulin 70/30 U-100 Insulin 100 unit/mL (70-30) suspension 30 unit SUBCUT .daily AM Patient Comments: INJECT 30 UNITS UNDER THE SKIN DAILY BEFORE breakfast AND 20 UNITS EVERY EVENING BEFORE dinner Novolin 70-30 FlexPen U-100 100 unit/mL (70-30) insulin pen 20 unit subcut .daily HS Referrals / Follow Up: Elana Hickman DO [Primary Care Provider] - Within 2 Weeks Elana Davis DPM [Med Staff - Active Staff] - In 1 Week Disposition Disposition (needs filled in before D/C Order can be placed): [facility] 10/11/24 1216 Cosigner Signature (if applicable): CC: LEEROY Davis; Dr. Stephen Deal DO; Dr. Elana Hickman DO; Dr. Silvai Son MD; Dr. Ever Schreiber MD ~ [facility]08-29-2025 [facility]08-29-2025 Progress note Author Ever Schreiber [facility] Note Date/Time October 11, 2024 10 :15am [facility] Medical Records Department [address] [place] [address] Progress Note - Infect Disease 10/11/24 1014 MR#: [id number] Acct: [id number] Name: AMBROCIO JEFFERS Rep #:[id number] : 1950 74 From: Ever santiago MD PCP: Dr. Elana Hickman, DO Status:ADM IN Location: [place] [address] Physical Exam Narrative Feeling ok, pain controlled s/p OR, no fever, no n/v. Const alert and no apparent distress General Appearance: cooperative Resp normal air movement and clear to auscultation bilaterally Cardio regular rate and regular rhythm GI soft to palpation, non-tender and non-distended Skin Skin Narrative: foot wrapped ID ID: Route of nutrition/ use of supplements: [] Nutritional Intake: [] IV Site: [] [place] Catheter: [] Assessment & Plan Assessment/Plan (1) Osteomyelitis of right foot: QUALIFIERS: Osteomyelitis type: subacute Qualified Code(s): M86.271 - Subacute osteomyelitis, right ankle and foot PLAN: R 3rd toe presumed osteo. Wound cx with MRSA. OR 10/10/[address] Davis for toe amputation. Cont vanc while inpatient. plan on discharge with 7 days po doxy 100mg bid. Will follow prn 10/11/24 1015 <Electronically signed by Ever Schreiber MD> Cosigner Signature (if applicable): CC: ~ Signed [facility] Work Phone: [phone] 107-113008-29-2025 Progress note [facility] Medical Records Department [address] [place] [address] Progress Note - Hospitalist 10/11/24 0727 MR#: [id number] Acct: [id number] Name: AMBROCIO JEFFERS Rep #:[id number] : 1950 74 From: Ryne Steward DO PCP: Dr. Elana Hickman, DO Status:ADM IN Location: [place] [address] Reason for Visit Chief Complaint: Right foot/ankle pain and swelling and generalized weakness Subjective Subjective Feels well. Denies pain. Objective Data Objective Data Vital Signs: Vital Signs Temp Pulse Resp BP Pulse Ox O2 Del Method 36.3 C L 65 16 167/79 H 95 Room Air 10/11/24 03:00 10/11/24 03:00 10/11/24 03:00 10/11/24 03:00 10/11/24 03:00 10/11/24 03:00 Oxygen Delivery Method Room Air Weight: 108.8 kg Body Mass Index (BMI) 33.4 Intake & Output: Intake and Output for Last 24 Hours 10/09/24 10/10/24 10/11/24 23:59 23:59 23:59 Intake Total 1200 / 1200 595 / 595 270 / 270 Output Total 1500 / 1500 1410 / 1410 650 / 650 Balance -300 / -300 -815 / -815 -380 / -380 Lab / Micro Data 10/11/24 05:58 10/11/24 05:58 Labs: Laboratory Results - last 24 hr 10/10/24 06:05: WBC 7.8, RBC 4.60, Hgb 14.2, Hct 41.7, MCV 90.7, MCH 30.9, MCHC 34.1, RDW Std Deviation 41.0, RDW Coeff of Brant 12.4, Plt Count 260, MPV 10.7, Immature Gran % (Auto) 0.800, Neut % (Auto) 73.6 H, Lymph % (Auto) 10.7 L, Sanborn % (Auto) 10.7 H, Eos % (Auto) 3.8, Baso % (Auto) 0.4, Absolute Neuts (auto) 5.8,Absolute Lymphs (auto) 0.84, Nucleated RBC % 0, Sodium 140, Potassium 3.5, Chloride 103, Carbon Dioxide 24.4, Anion Gap 13, BUN 27 H, Creatinine 1.05, Estim Creat Clear Calc 78.61, Est GFR (MDRD) Non-Af 75, BUN/Creatinine Ratio 25.3 H, Glucose 144 H, Calcium 8.6 10/10/24 08:03: POC Glucose 121 H 10/10/24 11:12: Vancomycin Trough 16.5 H 10/10/24 16:23: POC Glucose 165 H 10/10/24 22:41: POC Glucose 183 H 10/11/24 05:58: WBC 6.4, RBC 4.42 L, Hgb 13.4, Hct 40.1, MCV 90.7, MCH 30.3, MCHC 33.4, RDW Std Deviation 40.7, RDW Coeff of Brant 12.1, Plt Count 250, MPV 10.3, Immature Gran % (Auto) 1.400 H, Neut % (Auto) 68.8, Lymph % (Auto) 13.9 L,Sanborn % (Auto) 10.3 H, Eos % (Auto) 4.7, Baso % (Auto) 0.9, Absolute Neuts (auto)4.4, Absolute Lymphs (auto) 0.89, Nucleated RBC % 0, Differential Comment SCANNED, Atypical Lymphocytes RARE, Plt Morphology Comment GIANT, Sodium 139, Potassium 3.6, Chloride 103, Carbon Dioxide 23.8, Anion Gap 12, BUN 29 H, Creatinine 0.98, Estim Creat Clear Calc 84.22, Est GFR (MDRD) Non-Af 81, BUN/Creatinine Ratio 29.1 H, Glucose 268 H, Calcium 8.5 10/11/24 06:40: POC Glucose 242 H Radiography Diagnostic Testing: Radiology Impression C-Arm Fluoroscopy 10/10/24 11:30 IMPRESSION: Intraoperative fluoroscopy was performed for amputation of the right 3rd toe. 2fluoroscopic images are also obtained. Reading Location: [place] [address] Foot X-Ray 10/10/24 11:30 IMPRESSION: Intraoperative fluoroscopy was performed for amputation of the right 3rd toe. 2fluoroscopic images are also obtained. Reading Location: [place] [address] Physical Exam Const alert and no apparent distress HEENT head/scalp atraumatic and moist oral mucous membranes Resp normal respiratory effort, no retractions, no use of accessory muscles and clearto auscultation bilaterally Cardio regular rate, regular rhythm, S1 normal heart sound and S2 normal heart sound GI normal to inspection, nondistended, normoactive bowel sounds, soft to palpation,non-tender and non-distended Extremity Extremity Narrative: Right foot bandaged and wrapped. Neuro Sensorium / Orientation: awake and alert Assessment & Plan Assessment/Plan (1) Cellulitis of leg, right: PLAN: On IV vancomycin Began today after debridement of his left third toe. Concerned that the third toe could be the nidus of the infection. MRI showed osteomyelitis of right 3rd toe. Amputation of 3rd digit right foot on 10/10 Duplex of RLE given the edema showed no DVT. Culture showing MRSA from September 10 Per ID, plan for discharge with 7 days of doxycycline 100 twice daily. (2) Debility: PLAN: requires much assistance for ambulation and this will be further complicated by surgery and off-loading, additionally complicated by Parkinson's disease Plan for SNF when medically stable. PLAN: Plan Chronic conditions: * DM2: glargine and SSI. resume empagliflozin as outpt. * parkinson's disease: carbidopa/levodopa * BPH: flomax VTE prophylaxis: LMWH. Disposition: To TCU today. 10/11/24 1208 Cosigner Signature (if applicable): CC: ~ Signed [facility]08-29-2025 Progress note [facility] Medical Records Department [address] [place] [address] Progress Note - Infect Disease 10/11/24 1014 MR#: [id number] Acct: [id number] Name: AMBROCIO JEFFERS Rep #:[id number] : 1950 74 From: Ever santiago MD PCP: Dr. Elana Hickman, DO Status:ADM IN Location: [place] [id number] Physical Exam Narrative Feeling ok, pain controlled s/p OR, no fever, no n/v. Const alert and no apparent distress General Appearance: cooperative Resp normal air movement and clear to auscultation bilaterally Cardio regular rate and regular rhythm GI soft to palpation, non-tender and non-distended Skin Skin Narrative: foot wrapped ID ID: Route of nutrition/ use of supplements: [] Nutritional Intake: [] IV Site: [] [place] Catheter: [] Assessment & Plan Assessment/Plan (1) Osteomyelitis of right foot: QUALIFIERS: Osteomyelitis type: subacute Qualified Code(s): M86.271 - Subacute osteomyelitis, rightankle and foot PLAN: R 3rd toe presumed osteo. Wound cx with MRSA. OR 10/10/[address] Davis for toe amputation. Cont vanc while inpatient. plan on discharge with 7 days po doxy 100mg bid. Will follow prn 10/11/24 1015 Cosigner Signature (if applicable): CC: ~ Signed [facility]08-29-2025 Progress note Author Elana Davis [facility] Note Date/Time October 11, 2024 7: 50am [facility] Medical Records Department [address] [place] [address] Progress Note 10/11/24 0747 MR#: [id number] Acct: [id number] Name: AMBROCIO JEFFERS Rep #:[id number] : 1950 74 From: Elana sesay DPM PCP: Dr. Elana Hickman, DO Status:ADM IN [id number] Subjective Subjective Patient seen early this a.m. with wound nurse present. Patient states that he is feeling pretty good this morning and denies pain to the right foot. Has continued to elevate the foot through the night. Nursing reports no acute overnight events. Patient denies constitutional symptoms. Denies further complaints. Objective Data Objective Data Vital Signs: Vital Signs Temp Pulse Resp BP Pulse Ox O2 Del Method 97.4 F L 65 16 167/79 H 95 Room Air 10/11/24 03:00 10/11/24 03:00 10/11/24 03:00 10/11/24 03:00 10/11/24 03:00 10/11/24 03:00 Oxygen Delivery Method Room Air Weight: 108.8 kg Body Mass Index (BMI) 33.4 Intake & Output: Intake and Output for Last 24 Hours 10/09/24 10/10/24 10/11/24 23:59 23:59 23:59 Intake Total 1200 / 1200 595 / 595 270 / 270 Output Total 1500 / 1500 1410 / 1410 650 / 650 Balance -300 / -300 -815 / -815 -380 / -380 Lab / Micro Data 10/11/24 05:58 10/11/24 05:58 Labs: Laboratory Results - last 24 hr 10/10/24 06:05: Sodium 140, Potassium 3.5, Chloride 103, Carbon Dioxide 24.4, Anion Gap 13, BUN 27 H, Creatinine 1.05, Estim Creat Clear Calc 78.61, Est GFR (MDRD) Non-Af 75, BUN/Creatinine Ratio 25.3 H, Glucose 144 H, Calcium 8.6 10/10/24 08:03: POC Glucose 121 H 10/10/24 11:12: Vancomycin Trough 16.5 H 10/10/24 16:23: POC Glucose 165 H 10/10/24 22:41: POC Glucose 183 H 10/11/24 05:58: WBC 6.4, RBC 4.42 L, Hgb 13.4, Hct 40.1, MCV 90.7, MCH 30.3, MCHC 33.4, RDW Std Deviation 40.7, RDW Coeff of Brant 12.1, Plt Count 250, MPV 10.3, Immature Gran % (Auto) 1.400 H, Neut % (Auto) 68.8, Lymph % (Auto) 13.9 L,Sanborn % (Auto) 10.3 H, Eos % (Auto) 4.7, Baso % (Auto) 0.9, Absolute Neuts (auto)4.4, Absolute Lymphs (auto) 0.89, Nucleated RBC % 0, Differential Comment SCANNED, Atypical Lymphocytes RARE, Plt Morphology Comment GIANT, Sodium 139, Potassium 3.6, Chloride 103, Carbon Dioxide 23.8, Anion Gap 12, BUN 29 H, Creatinine 0.98, Estim Creat Clear Calc 84.22, Est GFR (MDRD) Non-Af 81, BUN/Creatinine Ratio 29.1 H, Glucose 268 H, Calcium 8.5 10/11/24 06:40: POC Glucose 242 H Radiography Diagnostic Testing: Radiology Impression C-Arm Fluoroscopy 10/10/24 11:30 IMPRESSION: Intraoperative fluoroscopy was performed for amputation of the right 3rd toe. 2fluoroscopic images are also obtained. Reading Location: [place] [address] Foot X-Ray 10/10/24 11:30 IMPRESSION: Intraoperative fluoroscopy was performed for amputation of the right 3rd toe. 2fluoroscopic images are also obtained. Reading Location: [place] [address] Physical Exam Const alert, oriented x3 and no apparent distress General Appearance: cooperative HEENT normocephalic Eyes Eyes Narrative: Wears glasses General Eye: normal appearance of both eyes Neck General: normal visual inspection Lymph Lymphatic: no lymphadenopathy noted and no lymphedema noted Resp normal respiratory effort Cardio regular rate and regular rhythm Extremity no calf tenderness Extremity Narrative: Bilateral lower extremity: Vascular: DP and PT pulses weakly palpable. CFT less than 5 seconds to the digits. Normal temperature gradient. Hair growth is diminished to digits and foot Neurologic: Gross sensation is intact. Protective sensation is diminished secondary to diabetic peripheral polyneuropathy Musculoskeletal: Third digit amputation of the right foot noted. Negative Prattsign, negative Homans' sign. Pain to palpation about the lateral ankle, anterior ankle, and medial ankle right lower extremity. Dermatological: There is erythema about the ankle to just above the ankle mortise/distal tibia right lower extremity. This has receded from the previous line of demarcation consistent with improving cellulitis. Third digit amputation of the right foot is appreciated with intact sutures overlying the amputation site. There is no surrounding erythema of the digit or foot, no purulent drainage from the digit site, no foul odor noted. No pain to palpationabout the surgical site. Skin no rashes or lesions noted Neuro moves all extremities Assessment & Plan Assessment/Plan (1) Osteomyelitis of right foot: QUALIFIERS: Osteomyelitis type: subacute Qualified Code(s): M86.271 - Subacute osteomyelitis, right ankle and foot (2) Cellulitis of leg, right: (3) Non-pressure chronic ulcer of other part of right foot with fat layer exposed: PLAN: Plan Patient seen and evaluated DOS: 10/10/2024, POD #1 I have reviewed previous radiographs of the right foot and ankle from 10/05/2024 and concur with radiographic read. Sutures intact third digit amputation stump. Erythema about the ankle is resolving in addition to improving swelling. Tenderness is improving about his ankle. Dressing changed today consisting of Betadine soaked Adaptic, 4 x 4 gauze, Kerlix, ABD, and 4 inch Louis wrap rolled onto the foot. Nursing may continue to change dressing every 3 days WBC currently 6.4 On 10/05/2024 ESR noted to be elevated at 251 and ESR at 37 MRI was obtained 10/07/2024 demonstrating likely osteomyelitis of the remaining osseous structures of the middle and distal phalanx of the third digit of the right foot. I have reviewed imaging osteomyelitis is questionable however givenconcern over any recurrence and for definitive treatment patient is agreeable toamputation of the third digit. Culture did demonstrate MSRA Surgical cultures obtained 10/10/2024: Tissue third digit to micro, awaiting results; distal phalanx bone third digit to micro, awaiting result; base of the proximal phalanx third digit to pathology, awaiting results. Currently on IV vancomycin Medicine team following for medical management, they are greatly appreciated. Infectious disease following for antibiotic management Wound nurse following for assistance in dressing changes Patient is to continue to elevate the right foot at all times rest for postoperative edema control May apply ice behind the right knee for postoperative pain control He is to keep all dressings clean, dry, and intact to the right foot He may continue ambulation in a protected weightbearing status utilizing his surgical shoe to the right foot. This will aid in decreasing fall due to his Parkinson's. Current expectation by patient and family is they will enter the transitional care unit for additional rehab and recovery prior to his discharge home. Socialwork is following and assisting in transition to the TCU. Will continue to follow while in house. Reach out to Dr. Davis for any questions or concerns. Jr. Crow WatsonP.M. [facility] [phone] 10/11/24 0750 <Electronically signed by Elana Davis DPM> Elana Cheema Cosigner Signature (if applicable): CC: ~ Signed [facility] Work Phone: [phone] Progress note [facility] Medical Records Department [address] [place] [address] Progress Note 10/11/24 0747 MR#: [id number] Acct: [id number] Name: AMBROCIO JEFFERS Rep #:[id number] : 1950 74 From: Elana sesay DPM PCP: Dr. Elana Hickman, DO Status:ADM IN Location: [facility] WH592-3 Subjective Subjective Patient seen early this a.m. with wound nurse present. Patient states that he is feeling pretty good this morning and denies pain to the right foot. Has continued to elevate the foot through the night. Nursing reports no acute overnight events. Patient denies constitutional symptoms. Denies further complaints. Objective Data Objective Data Vital Signs: Vital Signs Temp Pulse Resp BP Pulse Ox O2 Del Method 97.4 F L 65 16 167/79 H 95 Room Air 10/11/24 03:00 10/11/24 03:00 10/11/24 03:00 10/11/24 03:00 10/11/24 03:00 10/11/24 03:00 Oxygen Delivery Method Room Air Weight: 108.8 kg Body Mass Index (BMI) 33.4 Intake & Output: Intake and Output for Last 24 Hours 10/09/24 10/10/24 10/11/24 23:59 23:59 23:59 Intake Total 1200 / 1200 595 / 595 270 / 270 Output Total 1500 / 1500 1410 / 1410 650 / 650 Balance -300 / -300 -815 / -815 -380 / -380 Lab / Micro Data 10/11/24 05:58 10/11/24 05:58 Labs: Laboratory Results - last 24 hr 10/10/24 06:05: Sodium 140, Potassium 3.5, Chloride 103, Carbon Dioxide 24.4, Anion Gap 13, BUN 27 H, Creatinine 1.05, Estim Creat Clear Calc 78.61, Est GFR (MDRD) Non-Af 75, BUN/Creatinine Ratio 25.3 H, Glucose 144 H, Calcium 8.6 10/10/24 08:03: POC Glucose 121 H 10/10/24 11:12: Vancomycin Trough 16.5 H 10/10/24 16:23: POC Glucose 165 H 10/10/24 22:41: POC Glucose 183 H 10/11/24 05:58: WBC 6.4, RBC 4.42 L, Hgb 13.4, Hct 40.1, MCV 90.7, MCH 30.3, MCHC 33.4, RDW Std Deviation 40.7, RDW Coeff of Brant 12.1, Plt Count 250, MPV 10.3, Immature Gran % (Auto) 1.400 H, Neut % (Auto) 68.8, Lymph % (Auto) 13.9 L,Sanborn % (Auto) 10.3 H, Eos % (Auto) 4.7, Baso % (Auto) 0.9, Absolute Neuts (auto)4.4, Absolute Lymphs (auto) 0.89, Nucleated RBC % 0, Differential Comment SCANNED, Atypical Lymphocytes RARE, Plt Morphology Comment GIANT, Sodium 139, Potassium 3.6, Chloride 103, Carbon Dioxide 23.8, Anion Gap 12, BUN 29 H, Creatinine 0.98, Estim Creat Clear Calc 84.22, Est GFR (MDRD) Non-Af 81, BUN/Creatinine Ratio 29.1 H, Glucose 268 H, Calcium 8.5 10/11/24 06:40: POC Glucose 242 H Radiography Diagnostic Testing: Radiology Impression C-Arm Fluoroscopy 10/10/24 11:30 IMPRESSION: Intraoperative fluoroscopy was performed for amputation of the right 3rd toe. 2fluoroscopic images are also obtained. Reading Location: [place] [address] Foot X-Ray 10/10/24 11:30 IMPRESSION: Intraoperative fluoroscopy was performed for amputation of the right 3rd toe. 2fluoroscopic images are also obtained. Reading Location: [place] [address] Physical Exam Const alert, oriented x3 and no apparent distress General Appearance: cooperative HEENT normocephalic Eyes Eyes Narrative: Wears glasses General Eye: normal appearance of both eyes Neck General: normal visual inspection Lymph Lymphatic: no lymphadenopathy noted and no lymphedema noted Resp normal respiratory effort Cardio regular rate and regular rhythm Extremity no calf tenderness Extremity Narrative: Bilateral lower extremity: Vascular: DP and PT pulses weakly palpable. CFT less than 5 seconds to the digits. Normal temperature gradient. Hair growth is diminished to digits and foot Neurologic: Gross sensation is intact. Protective sensation is diminished secondary to diabetic peripheral polyneuropathy Musculoskeletal: Third digit amputation of the right foot noted. Negative Prattsign, negative Homans' sign. Pain to palpation about the lateral ankle, anterior ankle, and medial ankle right lower extremity. Dermatological: There is erythema about the ankle to just above the ankle mortise/distal tibia right lower extremity. This has receded from the previous line of demarcation consistent with improving cellulitis. Third digit amputation of the right foot is appreciated with intact sutures overlying the amputation site. There is no surrounding erythema of the digit or foot, no purulent drainage from the digit site, no foul odor noted. No pain to palpationabout the surgical site. Skin no rashes or lesions noted Neuro moves all extremities Assessment & Plan Assessment/Plan (1) Osteomyelitis of right foot: QUALIFIERS: Osteomyelitis type: subacute Qualified Code(s): M86.271 - Subacute osteomyelitis, rightankle and foot (2) Cellulitis of leg, right: (3) Non-pressure chronic ulcer of other part of right foot with fat layer exposed: PLAN: Plan Patient seen and evaluated DOS: 10/10/2024, POD #1 I have reviewed previous radiographs of the right foot and ankle from 10/05/2024 and concur with radiographic read. Sutures intact third digit amputation stump. Erythema about the ankle is resolving in addition to improving swelling. Tenderness is improving about his ankle. Dressing changed today consisting of Betadine soaked Adaptic, 4 x 4 gauze, Kerlix, ABD, and 4 inch Louis wrap rolled onto the foot. Nursing may continue to change dressing every 3 days WBC currently 6.4 On 10/05/2024 ESR noted to be elevated at 251 and ESR at 37 MRI was obtained 10/07/2024 demonstrating likely osteomyelitis of the remaining osseous structures of the middle and distal phalanx of the third digit of the right foot. I have reviewed imaging osteomyelitis is questionable however givenconcern over any recurrence and for definitive treatment patient is agreeable toamputation of the third digit. Culture did demonstrate MSRA Surgical cultures obtained 10/10/2024: Tissue third digit to micro, awaiting results; distal phalanxbone third digit to micro, awaiting result; base of the proximal phalanx third digit to pathology, awaiting results. Currently on IV vancomycin Medicine team following for medical management, they are greatly appreciated. Infectious disease following for antibiotic management Wound nurse following for assistance in dressing changes Patient is to continue to elevate the right foot at all times rest for postoperative edema control May apply ice behind the right knee for postoperative pain control He is to keep all dressings clean, dry, and intact to the right foot He may continue ambulation in a protected weightbearing status utilizing his surgical shoe to the right foot. This will aid in decreasing fall due to his Parkinson's. Current expectation by patient and family is they will enter the transitional care unit for additional rehab and recovery prior to his discharge home. Socialwork is following and assisting in transition to the TCU. Will continue to follow while in house. Reach out to Dr. Davis for any questions or concerns. Jr. Crow WatsonPItaloM. [facility] [place] [phone] 10/11/24 6869 Elana DavisMauro Cosigner Signature (if applicable): CC: ~ Signed [id number] Progress note Author Elana Davis [facility] Note Date/Time October 10, 2024 5: 51pm [facility] Medical Records Department [address] [place] [address] Progress Note 10/10/24 1745 MR#: [id number] Acct: [id number] Name: AMBROCIO JEFFERS Rep #:[id number] : 1950 74 From: Elana sesay DPM PCP: Dr. Elana Hickman, DO Status:ADM IN Location: [place] [address] Subjective Subjective Patient was seen following the surgical intervention and is noted to be doing well in the PACU. Objective Data Objective Data Vital Signs: Vital Signs Temp Pulse Resp BP Pulse Ox O2 Del Method 97.4 F L 68 15 150/80 H 98 Room Air 10/10/24 15:00 10/10/24 15:00 10/10/24 15:00 10/10/24 15:00 10/10/24 15:00 10/10/24 15:00 Oxygen Delivery Method Room Air Weight: 108.8 kg Body Mass Index (BMI) 33.4 Intake & Output: Intake and Output for Last 24 Hours 10/08/24 10/09/24 10/10/24 23:59 23:59 23:59 Intake Total 550 / 550 1200 / 1200 595 / 595 Output Total 350 / 350 1500 / 1500 410 / 410 Balance 200 / 200 -300 / -300 185 / 185 Lab / Micro Data 10/10/24 06:05 10/10/24 06:05 Labs: Laboratory Results - last 24 hr 10/09/24 21:25: POC Glucose 142 H 10/10/24 06:05: WBC 7.8, RBC 4.60, Hgb 14.2, Hct 41.7, MCV 90.7, MCH 30.9, MCHC 34.1, RDW Std Deviation 41.0, RDW Coeff of Brant 12.4, Plt Count 260, MPV 10.7, Immature Gran % (Auto) 0.800, Neut % (Auto) 73.6 H, Lymph % (Auto) 10.7 L, Sanborn % (Auto) 10.7 H, Eos % (Auto) 3.8, Baso % (Auto) 0.4, Absolute Neuts (auto) 5.8,Absolute Lymphs (auto) 0.84, Nucleated RBC % 0, Sodium 140, Potassium 3.5, Chloride 103, Carbon Dioxide 24.4, Anion Gap 13, BUN 27 H, Creatinine 1.05, Estim Creat Clear Calc 78.61, Est GFR (MDRD) Non-Af 75, BUN/Creatinine Ratio 25.3 H, Glucose 144 H, Calcium 8.6 10/10/24 08:03: POC Glucose 121 H 10/10/24 11:12: Vancomycin Trough 16.5 H 10/10/24 16:23: POC Glucose 165 H Radiography Diagnostic Testing: Radiology Impression Venous Doppler Study 10/09/24 13:36 Interpretation Summary Deep veins of the right lower extremity are patent and compressible segmentally.There is no evidence of right lower extremity deep vein thrombosis. Valvular competence appears intact within the proximal deep venous system on the right . The right great saphenous vein appears patent and compressible segmentally. The left common femoral vein is patent and compressible . Ordering Physician: Ryne Steward Referring Physician: Elana Hickman Performed By: Kiesha Shah RVT C-Arm Fluoroscopy 10/10/24 11:30 IMPRESSION: Intraoperative fluoroscopy was performed for amputation of the right 3rd toe. 2fluoroscopic images are also obtained. Reading Location: [facility] Foot X-Ray 10/10/24 11:30 IMPRESSION: Intraoperative fluoroscopy was performed for amputation of the right 3rd toe. 2fluoroscopic images are also obtained. Reading Location: [place] [address] Physical Exam Const alert, oriented x3 and no apparent distress General Appearance: cooperative HEENT normocephalic Eyes Eyes Narrative: Wears glasses General Eye: normal appearance of both eyes Neck General: normal visual inspection Lymph Lymphatic: no lymphadenopathy noted and no lymphedema noted Resp normal respiratory effort Cardio regular rate and regular rhythm Extremity no calf tenderness Extremity Narrative: Bilateral lower extremity: Vascular: DP and PT pulses weakly palpable. CFT less than 5 seconds to the digits. Normal temperature gradient. Hair growth is diminished to digits and foot Neurologic: Gross sensation is intact. Protective sensation is diminished secondary to diabetic peripheral polyneuropathy Musculoskeletal: Third digit amputation of the right foot noted. Negative Prattsign, negative Homans' sign. Pain to palpation about the lateral ankle, anterior ankle, and medial ankle right lower extremity. Dermatological: There is erythema about the ankle to just above the ankle mortise/distal tibia right lower extremity. This has receded from the previous line of demarcation consistent with improving cellulitis. Third digit amputation of the right foot is appreciated with intact sutures overlying the amputation site. There is no surrounding erythema of the digit or foot, no purulent drainage from the digit site, no foul odor noted. No pain to palpationabout the surgical site. Skin no rashes or lesions noted Neuro moves all extremities Assessment & Plan Assessment/Plan (1) Osteomyelitis of right foot: QUALIFIERS: Osteomyelitis type: subacute Qualified Code(s): M86.271 - Subacute osteomyelitis, right ankle and foot (2) Cellulitis of leg, right: (3) Non-pressure chronic ulcer of other part of right foot with fat layer exposed: PLAN: Plan Patient seen and evaluated DOS: 10/10/2024 I have reviewed previous radiographs of the right foot and ankle from 10/05/2024 and concur with radiographic read. Sutures intact third digit amputation stump. Still is some resolving erythema about the ankle. Tenderness is improving about his ankle. WBC currently 7.8 On 10/05/2024 ESR noted to be elevated at 251 and ESR at 37 MRI was obtained 10/07/2024 demonstrating likely osteomyelitis of the remaining osseous structures of the middle and distal phalanx of the third digit of the right foot. I have reviewed imaging osteomyelitis is questionable however givenconcern over any recurrence and for definitive treatment patient is agreeable toamputation of the third digit. Culture did demonstrate MSRA Surgical cultures obtained 10/10/2024: Tissue third digit to micro, awaiting results; distal phalanx bone third digit to micro, awaiting result; base of the proximal phalanx third digit to pathology, awaiting results. Currently on IV vancomycin Medicine team following for medical management, they are greatly appreciated. Infectious disease following for antibiotic management Patient is to continue to elevate the right foot at all times rest for postoperative edema control May apply ice behind the right knee for postoperative pain control He is to keep all dressings clean, dry, and intact to the right foot He may continue ambulation in a protected weightbearing status utilizing his surgical shoe to the right foot. This will aid in decreasing fall due to his Parkinson's. Current expectation by patient and family is they will enter the transitional care unit for additional rehab and recovery prior to his discharge home. Socialwork is following and assisting in transition to the TCU. Will continue to follow while in house. Reach out to Dr. Davis for any questions or concerns. Elana Davis Jr. D.P.M. [facility] [phone] 10/10/24 175 <Electronically signed by Elana Davis DPM> Elana Cheema Cosigner Signature (if applicable): CC: ~ Signed [facility] Work Phone: [phone] Progress note [facility] Medical Records Department [address] [place] [address] Progress Note 10/10/24 1745 MR#: [id number] Acct: [id number] Name: AMBROCIO JEFFERS Rep #:[id number] : 1950 74 From: Elana sesay DPM PCP: Dr. Elana Hickman, DO Status:ADM IN [id number] Subjective Patient was seen following the surgical intervention and is noted to be doing well in the PACU. Objective Data Objective Data Vital Signs: Vital Signs Temp Pulse Resp BP Pulse Ox O2 Del Method 97.4 F L 68 15 150/80 H 98 Room Air 10/10/24 15:00 10/10/24 15:00 10/10/24 15:00 10/10/24 15:00 10/10/24 15:00 10/10/24 15:00 Oxygen Delivery Method Room Air Weight: 108.8 kg Body Mass Index (BMI) 33.4 Intake & Output: Intake and Output for Last 24 Hours 08/26/25 08/27/25 08/28/25 23:59 23:59 23:59 Intake Total 550 / 550 1200 / 1200 595 / 595 Output Total 350 / 350 1500 / 1500 410 / 410 Balance 200 / 200 -300 / -300 185 / 185 Lab / Micro Data 10/10/24 06:05 10/10/24 06:05 Labs: Laboratory Results - last 24 hr 10/09/24 21:25: POC Glucose 142 H 10/10/24 06:05: WBC 7.8, RBC 4.60, Hgb 14.2, Hct 41.7, MCV 90.7, MCH 30.9, MCHC 34.1, RDW Std Deviation 41.0, RDW Coeff of Brant 12.4, Plt Count 260, MPV 10.7, Immature Gran % (Auto) 0.800, Neut % (Auto) 73.6 H, Lymph % (Auto) 10.7 L, Sanborn % (Auto) 10.7 H, Eos % (Auto) 3.8, Baso % (Auto) 0.4, Absolute Neuts (auto) 5.8,Absolute Lymphs (auto) 0.84, Nucleated RBC % 0, Sodium 140, Potassium 3.5, Chloride 103, Carbon Dioxide 24.4, Anion Gap 13, BUN 27 H, Creatinine 1.05, Estim Creat Clear Calc 78.61, Est GFR (MDRD) Non-Af 75, BUN/Creatinine Ratio 25.3 H, Glucose 144 H, Calcium 8.6 10/10/24 08:03: POC Glucose 121 H 10/10/24 11:12: Vancomycin Trough 16.5 H 10/10/24 16:23: POC Glucose 165 H Radiography Diagnostic Testing: Radiology Impression Venous Doppler Study 10/09/24 13:36 Interpretation Summary Deep veins of the right lower extremity are patent and compressible segmentally.There is no evidence of right lower extremity deep vein thrombosis. Valvular competence appears intact within the proximal deep venous system on the right . The right great saphenous vein appears patent and compressible segmentally. The left common femoralvein is patent and compressible . Ordering Physician: Ryne Steward Referring Physician: Elana Hickman Performed By: Kiesha Shah RVT C-Arm Fluoroscopy 10/10/24 11:30 IMPRESSION: Intraoperative fluoroscopy was performed for amputation of the right 3rd toe. 2fluoroscopic images are also obtained. Reading Location: [place] [address] Foot X-Ray 10/10/24 11:30 IMPRESSION: Intraoperative fluoroscopy was performed for amputation of the right 3rd toe. 2fluoroscopic images are also obtained. Reading Location: [place] [address] Physical Exam Const alert, oriented x3 and no apparent distress General Appearance: cooperative HEENT normocephalic Eyes Eyes Narrative: Wears glasses General Eye: normal appearance of both eyes Neck General: normal visual inspection Lymph Lymphatic: no lymphadenopathy noted and no lymphedema noted Resp normal respiratory effort Cardio regular rate and regular rhythm Extremity no calf tenderness Extremity Narrative: Bilateral lower extremity: Vascular: DP and PT pulses weakly palpable. CFT less than 5 seconds to the digits. Normal temperature gradient. Hair growth is diminished to digits and foot Neurologic: Gross sensation is intact. Protective sensation is diminished secondary to diabetic peripheral polyneuropathy Musculoskeletal: Third digit amputation of the right foot noted. Negative Prattsign, negative Homans' sign. Pain to palpation about the lateral ankle, anterior ankle, and medial ankle right lower extremity. Dermatological: There is erythema about the ankle to just above the ankle mortise/distal tibia right lower extremity. This has receded from the previous line of demarcation consistent with improving cellulitis. Third digit amputation of the right foot is appreciated with intact sutures overlying the amputation site. There is no surrounding erythema of the digit or foot, no purulent drainage from the digit site, no foul odor noted. No pain to palpationabout the surgical site. Skin no rashes or lesions noted Neuro moves all extremities Assessment & Plan Assessment/Plan (1) Osteomyelitis of right foot: QUALIFIERS: Osteomyelitis type: subacute Qualified Code(s): M86.271 - Subacute osteomyelitis, rightankle and foot (2) Cellulitis of leg, right: (3) Non-pressure chronic ulcer of other part of right foot with fat layer exposed: PLAN: Plan Patient seen and evaluated DOS: 10/10/2024 I have reviewed previous radiographs of the right foot and ankle from 10/05/2024 and concur with radiographic read. Sutures intact third digit amputation stump. Still is some resolving erythema about the ankle. Tenderness is improving about his ankle. WBC currently 7.8 On 10/05/2024 ESR noted to be elevated at 251 and ESR at 37 MRI was obtained 10/07/2024 demonstrating likely osteomyelitis of the remaining osseous structures of the middle and distal phalanx of the third digit of the right foot. I have reviewed imaging osteomyelitis is questionable however givenconcern over any recurrence and for definitive treatment patient is agreeable toamputation of the third digit. Culture did demonstrate MSRA Surgical cultures obtained 10/10/2024: Tissue third digit to micro, awaiting results; distal phalanxbone third digit to micro, awaiting result; base of the proximal phalanx third digit to pathology, awaiting results. Currently on IV vancomycin Medicine team following for medical management, they are greatly appreciated. Infectious disease following for antibiotic management Patient is to continue to elevate the right foot at all times rest for postoperative edema control May apply ice behind the right knee for postoperative pain control He is to keep all dressings clean, dry, and intact to the right foot He may continue ambulation in a protected weightbearing status utilizing his surgical shoe to the right foot. This will aid in decreasing fall due to his Parkinson's. Current expectation by patient and family is they will enter the transitional care unit for additional rehab and recovery prior to his discharge home. Socialwork is following and assisting in transition to the TCU. Will continue to follow while in house. Reach out to Dr. Davis for any questions or concerns. Elana Davis Jr. D.P.M. [facility] [phone] 10/10/24 1753 Elana Cheema Cosigner Signature (if applicable): CC: ~ Signed [facility]08-28-2025 Procedure note [facility] Medical Records Department [address] [place] [address] Operative Report 10/10/24 1342 MR#: [id number] Acct: [id number] Name: AMBROCIO JEFFERS Rep #:[id number] : 1950 74 From: Elana sesay DPM PCP: Dr. Elana Hickman, DO Status:ADM IN Location: [place] [id number] Problems Associated Problem List Diagnoses (1) Osteomyelitis of right foot: (2) Cellulitis of leg, right: (3) Non-pressure chronic ulcer of other part of right foot with fat layer exposed: Operative Report (Standard) Operative Information Date of Procedure: 10/10/24 Pre-Operative Diagnosis: 1. Osteomyelitis third digit right foot 2. Cellulitis right lower extremity Post-Operative Diagnosis: 1. Osteomyelitis third digit right foot 2. Cellulitis right lower extremity Surgery/Procedure Performed: 1. 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 Type of Anesthesia: Local (20 cc one-to-one mixture of 1% lidocaine plain 0.5% Marcaine plain) and MAC RN Documented Start/Stop Times: Operation Date: 10/10/24 12:30 Case Time Into Pre-Op 10/10/24 11:25 Anesthesia Start 10/10/24 12:40 Into Room 10/10/24 12:40 Procedure Start 10/10/24 13:07 Procedure End 10/10/24 13:36 Anesthesia End 10/10/24 13:45 Out of Room 10/10/24 13:45 Into Recovery 10/10/24 13:47 Out of Recovery 10/10/24 14:45 Procedure Start Time: 13:07 Procedure Stop Time: 13:36 Select all DRAINS/GRAFTS/IMPLANTS that apply: None Estimated Blood Loss: < 3 mL Specimen collected: Yes Description of specimen(s) removed: Distal phalanx bone to micro Tissue third digit right foot to micro Proximal phalanx pathology Description of surgery: HPI/indication: Patient is a 74-year-old male who has been following with Dr. Morgan and had previously undergone partial distal Symes amputation of the third digit right foot. He did develop a new ulceration to the remaining distal tuft of the third digit and has been following for local wound care/serial debridement with Dr. Morgan. Most recent debridement was on 10/01/2024 in office and patient subsequently developed some redness about the ankle 2 days later andwas placed on oral doxycycline. Patient also admits to falling that same day prior to starting the oral medication as he does have history of Parkinson's. Does utilize a walker for assistance. Due to continued redness about the ankle and leg they did present to the ED at [facility] on 10/05/2024 and were started on IV vancomycin and admitted under medicine. Radiographs werenegative of the foot and ankle for acute osseous pathology. These were reviewedby myself and I do concur with the radiographic read. Due to continued redness MRI was ordered of the foot demonstrating suspicion of osteomyelitis of the remaining portion of the distal tuft, middle phalanx, and head of the proximal phalanx of the third digit and thus podiatry is consulted for further evaluationand possible surgical intervention. I did discuss with the patient and his wifehis condition with suspicion of bone infection in the third digit that it would be best to undergo amputation given his continued open wound at the distal tuft. They were in agreement with the procedure selection and are prepared for surgical intervention. Discussed the risks and complications of the procedure. Discussed postoperative postoperative care with patient at bedside this morning. Discussed his risks include but are not limited to the following: Pain, continued pain, phantom pain, complex regional pain syndrome, neuritis/numbness,swelling, scarring, poor cosmetic result, infection, dehiscence, nonhealing/delayed healing, need for further surgery/procedure, digital deformity secondary to the amputation of the surrounding digits, difficulty wearing shoe gear, difficulty with ambulation, inability to wear shoe gear, addiction to pain medication, stroke,bleeding, heart attack, loss of function, loss of limb, loss of life. Patient is understanding of these and was able to repeat these back. Patient wishes to proceed forward with the surgical intervention for definitive treatment. Surgical consent signed freely. No promises were given. No guaranteeswere made. He was set to undergo amputationof the third digit of the right foot at [facility] on 10/10/2024 Procedure: Under mild sedation patient was brought to the operating placed on table in supine position and secured to table with safety belt. Following IV sedation a blanket bump was placed under thepatient's left hip and left foot was elevated via a blanket bump. A pneumatic ankle tourniquet was placed about the patient's right ankle. A local anesthetic block was then performed about the third ray proximal to the amputation site consisting of 20 cc of a one-to-one mixture of 1% lidocaine plain and 0.5% Marcaine plain. Foot was thenscrubbed, prepped, and draped in usual aseptic manner. Rightfoot was then elevated and pneumatic ankle tourniquet was inflated to 250 mmHg. At this time attention was directed to the third digit of the right foot where fluoroscopic imagingwas obtained demonstrating presence of the third digit and confirmation of the surgical site. Incision was then made overlying the head ofthe third metatarsal approximately and carried distally onto the base of the proximal phalanx as a racquet shaped incision. Incision was deepened straight to bone and the third metatarsophalangeal joint was identified and the digit wastransected at the metatarsophalangeal joint. No purulent drainage was noted during dissection and digit amputation. Digit was then transferred from the surgical field to the table in toto. On the table the distal phalanx was di ssected free from the soft tissue and was noted to be discolored indicating acute osteomyelitis this was sent to microbiology for culture. There was some scant tissue purulence, which was white in color, at the most distal tuft near the portion of bone which was sent for culture. This tissue was transected and also sent to microbiology for culture. The base of the proximal phalanx was transected utilizing a bone cutter and piece was sent to pathology for analysis. Head of the third metatarsal was examined and noted to be healthy in appearancewith good intact shiny cartilage. Surrounding soft tissues were healthy in appearance with no evidence of necrosis. The extensor tendon to the third digitwas identified and transected as far as proximal as possible. Flexor tendon of the third digit was identified and transected as far proximal as possible. Remaining portions of the third metatarsophalangeal joint capsule were dissectedfree and discarded per policy. Site was then flushed with copious amounts of normal sterile saline. Next, proximal to the surgical site was milked distally to evaluate for any further purulence and none was determined. Site was again flushed with copious amounts of normal sterile saline. Deep tissue was then closed utilizing 4-0 Vicryl. Subcutaneous tissues closed utilizing 4-0 Monocryl. Skin was then reapproximated utilizing 3-0 Prolene in simple interruptedfashion. At this time the pneumatic ankle tourniquet was deflated and a prompt hyperemic response was noted to the digits of the right foot. At this time final fluoroscopic imaging was obtained demonstrating amputation of the third digit of the right foot. Incision site was then dressed with Betadin esoaked Adaptic, 4 x 4 gauze, Kerlix, ABD, Kerlix, and 4 inch Louis wrap rolled onto the right foot. Patient tolerated the procedure and anesthesia well was transferred to PACU vital signs stable and vascular status intact to the right foot. Once anesthesia protocol is met [facility]. He is to continue to elevate the right foot at all times of restfor postoperative edema control. May apply ice behind right knee to aid in edema and postoperative pain. He is to keep all dressings clean, dry, and intact to the right foot. He is permitted protective weightbearing status to the right foot utilizing surgical shoe. Podiatry will continue to follow while in house. Surgical Findings: See operative note for findings Complications Complications: No Admit VTE Documentation VTE Present on Admission: No VTE Mechan Device Prophylaxis: SCD's VTE Pharm Prophylaxis ordered?: No Reason prophylaxis not ordered: Treatment Not Indicated 10/10/24 8276 Cosigner Signature (if applicable): CC: LEEROY Davis; Dr. Stephen Deal DO; Dr. Elana Hickman DO; Dr. Silvia Son MD; Dr. Ever Schreiber MD~ Signed [facility]08-28-2025 Consult note Author Josué Duong [facility] Note Date/Time October 10, 2024 3: 17pm [facility] Medical Records Department [address] [place] [address] Pharmacokinetic/Renal -Consult 10/10/24 1229 MR#: [id number] Acct: [id number] Name: AMBROCIO JEFFERS Rep #:[id number] : 1950 74 From: Josué haider PCP: Dr. Elana Hickman DO Status:ADM IN Location: [place] [address] Consult Antibiotic Management Pharmacy has been consulted to manage selected antibiotic: Vancomycin Type of Intervention Type of Consult: Follow-up Suspected Infection Suspected Infection: Skin/Soft tissue Labs Labs: Sodium 140 mmol/L (133-145) 10/10/24 06:05 Potassium 3.5 mmol/L (3.3-5.1) 10/10/24 06:05 Chloride 103 mmol/L (98-108) 10/10/24 06:05 Carbon Dioxide 24.4 mmol/L (21.0-32.0) 10/10/24 06:05 Anion Gap 13 (5-15) 10/10/24 06:05 BUN 27 mg/dL (4-19) H 10/10/24 06:05 Creatinine 1.05 mg/dL (0.70-1.20) 10/10/24 06:05 Est GFR (MDRD) Non-Af 75 (>60) 10/10/24 06:05 BUN/Creatinine Ratio 25.3 RATIO (10-20) H 10/10/24 06:05 Glucose 144 mg/dL (70-99) H 10/10/24 06:05 Vancomycin Trough 16.5 ug/mL (5.0-15.0) H 10/10/24 11:12 Microbiology Microbiology: MRSA in wound culture Estimated Creatinine Clearance Estimated Creatinine Clearance: 78.6 Goal Trough Goal Trough: 10-15 mcg/mL Pharmacy Plan for Drug Dosing Pharmacy Plan for Drug Dosing: Pharmacy Service will continue to monitor and adjust dosing as required. VANCOMYCIN LEVEL RECEIVED Current Vancomycin Dose: 1250 mg Q12H Number of Doses Received: 7 Vancomycin Level: 16.5 (goal 10-15) Hours Since Last Dose: 11.5 Renal Function: SCr: 1.01, CrCl: 78.6 Renal Function Trend: Improving Vancomycin Plan/Comments: Decreasing dose to 1000 mg Q12H with first dose 10/10 @1400 Pending Level: 10/12/24 @ 0130 Date/Time Labs Ordered Labs to be done on [date and time ordered]: 10/12/24 @ 0130 10/10/24 1231 <Electronically signed by Josué Jose> Date _ Josué Duong 10/10/24 1517 <Electronically signed by Ryne Steward DO> Cosigner Signature (if applicable): Date Ryne Steward DO CC: ~ Signed [facility] Work Phone: 1(752) 975-153508-28-2025 Consult note Author Madelin Londono [facility] Note Date/Time October 10, 2024 3: 02pm [facility] Medical Records Department [address] [place] [address] Anesthesia Postop Eval II 10/10/24 1501 MR#: [id number] Acct: [id number] Name: AMBROCIO JEFFERS Rep #:[id number] : 1950 74 From: Madelin bland CRNA PCP: Dr. Elana Hickman, Status:ADM IN Y Race: C Location: [place] [address] Anesthesia Postop Eval I Sum Postop Eval Completion status Anesthesia document: Postop Eval 1 completed: Yes Anesthesia Postop Eval I Summary Anesthesia Postop Eval I Summary: Anesthesia Postop Eval I: Assessment Summary Airway patent Yes 10/10/24 13:[address].MDOT Spontaneous unlabored Yes 10/10/24 13:[address] [employer] [employer].MDOT respirations Mental status Awake,Calm 10/10/24 13:[address] [employer] [employer].MDOT nausea No 10/10/24 13:[address].MDOT Vomiting No 10/10/24 13:[address].MDOT Anesthesia Postop Eval I: Fluid Summary Crystalloid volume administer 600 10/10/24 13:[address].MDOT (ml) Colloids volume administered ( ml) Blood Product volume administered (ml) Total IV fluid infused 600 10/10/24 13:[address].MDOT Anesthesia Postop Eval I: Summary Notes Anesthesia Complication No 10/10/24 13:[address] [employer].MDOT Anesthesia Complication Comment: Post-operative progress note Anesthesia: Postop Eval II Evaluation Mental status: Awake and Calm Pain Level: 0 nausea: No Vomiting: No Complications Anesthesia Complication: No 10/10/24 1502 <Electronically signed by Madelin schumacher ROAD FREIGHT FIRER> Date _ Madelin Bry [address] [employer]ER Cosigner Signature: Date CC: ~ Signed [facility] Work Phone: [phone]) 788-179708-28-2025 Consult note Author Marcel Barber [facility] Note Date/Time October 10, 2024 1: 42pm [facility] Medical Records Department [address] [place], [place] [address] [address] Anesthesia Postop Eval I 10/10/24 1342 MR#: [id number] Acct: [id number] Name: AMBROCIO JEFFERS Rep #:[id number] : 1950 74 From: Marcel PISANO PCP: Dr. Elana Hickman, DO Status:ADM IN Y Race: C Location: [place] [address] Anesthesia: Postop Eval I Current Vital Signs Temperature: 98 F Pulse Rate: 62 Blood Pressure: 95/60 Respiratory Rate: 16 Pulse Ox: 95 Oxygen Delivery Method: Room Air Assessment Airway patent: Yes Spontaneous unlabored respirations: Yes Mental status: Awake and Calm nausea: No Vomiting: No Anesthesia Complication: No Fluid Hydration Crystalloid volume administer (ml): 600 Total IV fluid infused: 600 Progress Note Anesthesia document: Postop Eval 1 completed: Yes 10/10/24 1342 <Electronically signed by Marcel Barber CRNA> Date _ Marcel Barber [address] [employer] Cosigner Signature: Date CC: ~ Signed [facility] Work Phone: 1(962) 813-609808-28-2025 Progress note Author Ryne Steward [facility] Note Date/Time October 10, 2024 1: 40pm [facility] Medical Records Department [address] [place] [address] Progress Note - Hospitalist 10/10/24 0756 MR#: [id number] Acct: [id number] Name: AMBROCIO JEFFERS Rep #:[id number] : 1950 74 From: Ryne Steward DO PCP: Dr. Elana Hickman DO Status:ADM IN Location: [place] [id number] Reason for Visit Chief Complaint: Right foot/ankle pain and swelling and generalized weakness Subjective Subjective No new complaints. States that his right leg is feeling better. Objective Data Objective Data Vital Signs: Vital Signs Temp Pulse Resp BP Pulse Ox O2 Del Method 36.4 C L 64 18 147/85 H 96 Room Air 10/10/24 02:15 10/10/24 02:15 10/10/24 02:15 10/10/24 02:15 10/10/24 02:15 10/10/24 03:00 Oxygen Delivery Method Room Air Weight: 108.8 kg Body Mass Index (BMI) 33.4 Intake & Output: Intake and Output for Last 24 Hours 10/08/24 10/09/24 10/10/24 23:59 23:59 23:59 Intake Total 550 / 550 1200 / 1200 275 / 275 Output Total 350 / 350 1500 / 1500 Balance 200 / 200 -300 / -300 275 / 275 Lab / Micro Data 10/10/24 06:05 10/10/24 06:05 Labs: Laboratory Results - last 24 hr 10/09/24 11:28: POC Glucose 256 H 10/09/24 16:06: POC Glucose 225 H 10/09/24 21:25: POC Glucose 142 H 10/10/24 06:05: WBC 7.8, RBC 4.60, Hgb 14.2, Hct 41.7, MCV 90.7, MCH 30.9, MCHC 34.1, RDW Std Deviation 41.0, RDW Coeff of Brant 12.4, Plt Count 260, MPV 10.7, Immature Gran % (Auto) 0.800, Neut % (Auto) 73.6 H, Lymph % (Auto) 10.7 L, Sanborn % (Auto) 10.7 H, Eos % (Auto) 3.8, Baso % (Auto) 0.4, Absolute Neuts (auto) 5.8,Absolute Lymphs (auto) 0.84, Nucleated RBC % 0 Radiography Diagnostic Testing: Radiology Impression Venous Doppler Study 10/09/24 13:36 Interpretation Summary Deep veins of the right lower extremity are patent and compressible segmentally.There is no evidence of right lower extremity deep vein thrombosis. Valvular competence appears intact within the proximal deep venous system on the right . The right great saphenous vein appears patent and compressible segmentally. The left common femoral vein is patent and compressible . Ordering Physician: Ryne Steward Referring Physician: Elana Hickman Performed By: Kiesha Shah RVT Physical Exam Const alert and no apparent distress HEENT head/scalp atraumatic and moist oral mucous membranes Resp normal respiratory effort and no retractions Extremity Extremity Narrative: Edema right lower extremity but nonpitting. Seems less pronounced than on the . Still has the lesion on the distal right third toe. Overall erythema seems to be improving. Neuro Sensorium / Orientation: awake, alert, oriented to person and oriented to place Psych affect normal Assessment & Plan Assessment/Plan (1) Cellulitis of leg, right: PLAN: On IV vancomycin Began today after debridement of his left third toe. Concerned that the third toe could be the nidus of the infection. MRI showed osteomyelitis of right 3rd toe. Podiatry following, planning on right foot 3rd digit amputation today. Duplex of RLE given the edema showed no DVT. Culture showing MRSA from September 10 (2) Debility: PLAN: requires much assistance for ambulation and this will be further complicated by surgery and off-loading, additionally complicated by Parkinson's disease Plan for SNF when medically stable. PLAN: Plan Chronic conditions: * DM2: glargine and SSI. resume empagliflozin as outpt. * parkinson's disease: carbidopa/levodopa * BPH: flomax VTE prophylaxis: LMWH. Disposition: To be determined. Charges/Coding Visit Charges Inpatient E&M: 05354 Subs Hosp L2 10/10/24 1340 <Electronically signed by Ryne Steward DO> Cosigner Signature (if applicable): CC: ~ Signed [facility] Work Phone: [phone]) 511-428608-28-2025 Consult note [facility] Medical Records Department [address] [place] [address] Pharmacokinetic/Renal -Consult 10/10/24 1229 MR#: [id number] Acct: [id number] Name: AMBROCIO JEFFERS Rep #:[id number] : 1950 74 From: Josué haider PCP: Dr. Elana Hickman, DO Status:ADM IN Location: [place] [address] Consult Antibiotic Management Pharmacy has been consulted to manage selected antibiotic: Vancomycin Type of Intervention Type of Consult: Follow-up Suspected Infection Suspected Infection: Skin/Soft tissue Labs Labs: Sodium 140 mmol/L (133-145) 10/10/24 06:05 Potassium 3.5 mmol/L (3.3-5.1) 10/10/24 06:05 Chloride 103 mmol/L (98-108) 10/10/24 06:05 Carbon Dioxide 24.4 mmol/L (21.0-32.0) 10/10/24 06:05 Anion Gap 13 (5-15) 10/10/24 06:05 BUN 27 mg/dL (4-19) H 10/10/24 06:05 Creatinine 1.05 mg/dL (0.70-1.20) 10/10/24 06:05 Est GFR (MDRD) Non-Af 75 (>60) 10/10/24 06:05 BUN/Creatinine Ratio 25.3 RATIO (10-20) H 10/10/24 06:05 Glucose 144 mg/dL (70-99) H 10/10/24 06:05 Vancomycin Trough 16.5 ug/mL (5.0-15.0) H 10/10/24 11:12 Microbiology Microbiology: MRSA in wound culture Estimated Creatinine Clearance Estimated Creatinine Clearance: 78.6 Goal Trough Goal Trough: 10-15 mcg/mL Pharmacy Plan for Drug Dosing Pharmacy Plan for Drug Dosing: Pharmacy Service will continue to monitor and adjust dosing as required. VANCOMYCIN LEVEL RECEIVED Current Vancomycin Dose: 1250 mg Q12H Number of Doses Received: 7 Vancomycin Level: 16.5 (goal 10-15) Hours Since Last Dose: 11.5 Renal Function: SCr: 1.01, CrCl: 78.6 Renal Function Trend: Improving Vancomycin Plan/Comments: Decreasing dose to 1000 mg Q12H with first dose 10/10 @1400 Pending Level: 10/12/24 @ 0130 Date/Time Labs Ordered Labs to be done on [date and time ordered]: 10/12/24 @ 0130 10/10/24 1231 ebly> Date _ Josué Duong 10/10/24 1517 DO> Cosigner Signature (if applicable): Date Ryne Steward DO CC: ~ Signed [facility]08-28-2025 Consult note [facility] Medical Records Department [address] [facility] [place] [address] Anesthesia Postop Eval II 10/10/24 1501 MR#: [id number] Acct: [id number] Name: AMBROCIO JEFFERS Rep #:[id number] : 1950 74 From: Madelin bland RO[address] [employer]ER PCP: Dr. Elana Hickman, DO Status:ADM IN Y Race: C Location: [place] [address] -1 Anesthesia Postop Eval I Sum Postop Eval Completion status Anesthesia document: Postop Eval 1 completed: Yes Anesthesia Postop Eval I Summary Anesthesia Postop Eval I Summary: Anesthesia Postop Eval I: Assessment Summary Airway patent Yes 10/10/24 13:[address].MDOT Spontaneous unlabored Yes 10/10/24 13:[address] [employer].MDOT respirations Mental status Awake,Calm 10/10/24 13:[address]MDOT nausea No 10/10/24 13:[address]MDOT Vomiting No 10/10/24 13:[address].MDOT Anesthesia Postop Eval I: Fluid Summary Crystalloid volume administer 600 10/10/24 13:[address].MDOT (ml) Colloids volume administered ( ml) Blood Product volume administered (ml) Total IV fluid infused 600 10/10/24 13:[address]MDOT Anesthesia Postop Eval I: Summary Notes Anesthesia Complication No 10/10/24 13:[address].MDOT Anesthesia Complication Comment: Post-operative progress note Anesthesia: Postop Eval II Evaluation Mental status: Awake and Calm Pain Level: 0 nausea: No Vomiting: No Complications Anesthesia Complication: No 10/10/[address]> Date _ Madelin Londono [address] [employer] Cosigner Signature: Date CC: ~ Signed [facility]08-28-2025 Radiology Diagnostic study note [facility] Imaging Services [address] [place] [address] [id number] Foot 2 Views MR#: [id number] Acct: [id number] Name: AMBROCIO JEFFERS Rep #: [id number] : 1950 M 74 From: Mehul Benosn MD PCP: Dr. Elana Hickman, DO Status: ADM IN Study:Foot 2 Views Date of Exam: 5 Exam# [id number] Ordering Dr: Elana Davis DPMauro PROCEDURE: FOOT 2 VIEWS; O.R. FLUORO FOR C-ARM 10/10/2024 REASON FOR EXAM: RT 3RD TOE AMPUTATION TECHNIQUE: FOOT 2 VIEWS; O.R. FLUORO FOR C-ARM Laterality: Right Fluoroscopy time: 4 seconds. COMPARISON: Right foot study 10/05/2024 RAD/Foot 2 Views IMPRESSION: Intraoperative fluoroscopy was performed for amputation of the right 3rd toe. 2fluoroscopic images are also obtained. Reading Location: [place] [address] CC: LEEROY Davis; Dr. Elana Hickman DO ~ Guideman: Signed [facility]08-28-2025 Radiology Diagnostic study note [facility] Imaging Services [address] [place] [address] O.R. Fluoro for C-Arm MR#: [id number] Acct: [id number] Name: AMBROCIO JEFFERS Rep #: [id number] : 1950 M 74 From: Mehul Benson MD PCP: Dr. Elana Hickman DO Status: ADM IN Study:O.R. Fluoro for C-Arm Date of Exam: 10/10/24 Exam# [id number] Ordering Dr: Elana Davis DPM PROCEDURE: FOOT 2 VIEWS; O.R. FLUORO FOR C-ARM 10/10/2024 REASON FOR EXAM: RT 3RD TOE AMPUTATION TECHNIQUE: FOOT 2 VIEWS; O.R. FLUORO FOR C-ARM Laterality: Right Fluoroscopy time: 4 seconds. COMPARISON: Right foot study 10/05/2024 RAD/O.R. Fluoro for C-Arm IMPRESSION: Intraoperative fluoroscopy was performed for amputation of the right 3rd toe. 2fluoroscopic images are also obtained. Reading Location: [place] [address] CC: LEEROY Davis; Dr. Elana Hickman DO ~ Guideman: Signed [facility]08-28-2025 Consult note Author Donny Cheng [facility] Note Date/Time October 10, 2024 12 :02pm [facility] Medical Records Department [address] [place] [address] Pre-Anesthesia Evaluation 10/10/24 1153 MR#: [id number] Acct: [id number] Name: AMBROCIO JEFFERS Rep #:[id number] : 1950 74 From: Donny Cheng MD PCP: Dr. Elana Halko, DO Status:ADM IN Y Race: C Location: MA3 [id number] -1 ASA Classification* ASA Classification ASA Classification: 3 Assessment & Plan Anesthesia* Anesthesia Assessment Anesthesia Assessment: Discussed sedation and/or anesthesia options, risks, benefits, and alternatives with patient/parents/legal guardian/POA. Questions invited. The patient/parents/legal guardian/POA seems to understand and agrees to proceedwith anesthesia plan. Reviewed the physical assessment, medical history, allergy history and patient home medications list prior to surgery/procedure/anesthetic and documented any changes. Performed airway and anesthesia risk assessments. Anesthesia Type Anesthesia Type: MAC History Source History Obtained from:: Patient and Chart Anesthesia Focused Assessment* Temperature: 98.4 F Pulse Rate: 86 Blood Pressure: 167/88 Respiratory Rate: 18 Pulse Ox: 94 Oxygen Delivery Method: Room Air Airway Assessment Mouth opens: >3 cm Mallampati Score: IV Teeth Condition: Dentures (Now full upper plate is out.) and Missing (Edentulouson the bottom.) Neck Range of motion (ROM): Limited ROM (Severe Restriction) Labs Anesthesia Preop lab: CBC WBC 7.8 K/mm3 (4.4-11.0) 10/10/24 06:05 10/10/24 RBC 4.60 M/mm3 (4.6-6.2) 10/10/24 06:05 10/10/24 Hgb 14.2 g/dL (13.0-16.5) 10/10/24 06:05 10/10/24 Hct 41.7 % (40-54) 10/10/24 06:05 10/10/24 Plt Count 260 K/mm3 (150-450) 10/10/24 06:05 10/10/24 CHEMISTRY Potassium 3.5 mmol/L (3.3-5.1) 10/10/24 06:05 10/10/24 Sodium 140 mmol/L (133-145) 10/10/24 06:05 10/10/24 BUN 27 mg/dL (4-19) H 10/10/24 06:05 10/10/24 Creatinine 1.05 mg/dL (0.70-1.20) 10/10/24 06:05 10/10/24 Glucose 144 mg/dL (70-99) H 10/10/24 06:05 10/10/24 POC Glucose 121 mg/dL (74-106) H 10/10/24 08:03 10/10/24 COAG PT 13.6 SECONDS (11.7-14.9) 11/09/22 11:50 Pre-Assessment Diagnosis/Proposed Procedure Planned Operative Procedure(s): Amputation right third toe Anesthesia History Anesthesia History - 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 When Was Last Pacemaker Check QUESTION #4 FULL TEXT: You/Your Family Experience fever (hyperthermia) with Anesthesia Last Oral Intake Last Oral intake: Last Oral Intake NPO since 00:00 10/10/24 10:32 Meds taken in AM with sips of Yes 10/10/24 10:32 water? Meds patient instructed to see 10/10/24 10:32 take am of surgery PONV PONV - school psychometrist: PONV - school psychometrist Female HX of Motion Sickness HX of N/V After Surgery Non-Smoker Duration of Surgery greater than 60 minutes Number of Risk Factors PONV Score Height & Weight Height & Weight: Anesthesia: Height & Weight Height 5 ft 11 in 10/10/24 10:32 Weight: 108.8 kg 10/10/24 10:32 Body Mass Index (BMI) 33.4 10/10/24 10:32 Respiratory Assessment Respiratory Assessment - school psychometrist: Respiratory Tract Infection Hx - school psychometrist Hx Respiratory Tract Infection No 10/09/24 20:14 STOP Sleep Apnea STOP Sleep Apnea - school psychometrist: STOP Sleep Apnea - school psychometrist Hx Hypertension Yes 10/06/24 10:47 Hx Sleep Apnea No 10/05/24 15:38 CPAP BIPAP Do you snore loudly (louder No 10/05/24 15:38 than talking or can be heard Do you often feel tired/ No 10/05/24 15:38 fatigued/ sleepy during daytime? Has anyone observed you stop No 10/05/24 15:38 breathing during sleep? STOP Results Negative 10/05/24 15:38 QUESTION #5 FULL TEXT : Do you snore loudly (louder than talking or can be heard through closed doors)? 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 Specify any problems Hx of Preganancy in last 3 N/A 10/05/24 15:38 Months [facility]/05/24 15:38 & Questions: Date: 10/05/24 10/05/24 15:38 Time: 16:17 10/05/24 15:38 Patient unable to answer at this time (ie. confused, unrespo /Reproduction History /Reproductive History - school psychometrist: /Reproductive Hx- school psychometrist Hx Now No 10/09/24 20:14 Gestational Age (in weeks): EDC: Hx Hx Para Hx Section SAB No 10/09/24 20:14 Active Medications Active Medications: Current Medications Generic Name Dose Route Start Last Admin Trade Name Freq PRN Reason Stop Dose Admin Acetaminophen 1,000 mg 10/09/24 14:00 10/10/24 05:42 Acetaminophen 500 Mg Tablet PO 1,000 mg Q8 LINO Administration Carbidopa/Levodopa 2 tablet 10/05/24 16:00 10/10/24 08:06 Carbidopa/Levodopa 25/250 Tablet PO 2 tablet BIDAC LINO Administration Cholecalciferol 50 mcg 10/06/24 10:00 10/10/24 08:06 Cholecalciferol (Vit D3) 25 Mcg Tablet (1,000 Units) PO 50 mcg DAILY LINO Administration Cyclobenzaprine HCl 10 mg 10/05/24 15:38 10/09/24 07:56 Cyclobenzaprine Hcl 10 Mg Tablet PO 10 mg TID PRN Administration MUSCLE SPASM Enoxaparin Sodium 40 mg 10/06/24 10:00 10/10/24 08:10 Enoxaparin 40 Mg/0.4 Ml Syringe SC Not Given DAILY LINO Gabapentin 100 mg 10/05/24 22:00 10/10/24 05:43 Gabapentin 100 Mg Capsule PO 100 mg Q8H LINO Administration Glucagon 1 mg 10/05/24 15:38 Glucagon 1 Mg/Ml Syringe IM X1 PRN Hypoglycemia Protocol Vancomycin IV-PHARMACY TO DOSE 500 mls @ 250 mls/hr 10/05/24 15:38 1 each/ Sodium Chloride IV X1 PRN Rx to Dose Protocol Dextrose 250 mls @ 0 mls/hr 10/05/24 15:38 Dextrose 10%-Water IV .Q0M PRN HYPOGLYCEMIA Protocol As Directed Sodium Chloride 250 mls @ 15 mls/hr 10/05/24 20:34 10/09/24 07:00 IV Infused .[id number] PRN Infusion Saline Flush Sodium Chloride 250 mls @ 15 mls/hr 10/05/24 20:34 IV .[id number] PRN Additional IVPB Infusion Vancomycin HCl 1,250 mg/ 275 mls @ 167 mls/hr 10/07/24 00:00 10/10/24 01:25 Sodium Chloride IV Infused Q12H LINO Infusion Lactated Ringer's 1,000 mls @ 15 mls/hr 10/10/24 11:30 10/10/24 11:40 IV 15 mls/hr .Q48H LINO Administration Insulin Glargine 15 unit 10/05/24 22:00 10/10/24 09:47 Insulin Glargine-Yfgn 100 Unit/Ml Pen SC Not Given BID LINO Insulin Human Lispro 0 unit 10/05/24 16:00 10/10/24 08:05 Insulin Lispro 100 Unit/Ml Insuln.Pen SC Not Given ACHS [facility] Protocol Melatonin 3 mg 10/05/24 15:38 10/09/24 00:40 Melatonin 3 Mg Tablet PO 3 mg QHS PRN PRN Administration INSOMNIA Ondansetron HCl 4 mg 10/05/24 15:38 Ondansetron 4 Mg/2 Ml Vial IV Q8H PRN PRN NAUSEA/VOMITING Oxycodone HCl 5 mg 10/09/24 09:30 10/09/24 13:42 Oxycodone 5 Mg Tablet PO 5 mg Q4H PRN PRN Administration Pain Score 1-10 Pantoprazole Sodium 20 mg 10/06/24 10:00 10/10/24 08:06 Pantoprazole Sodium 20 Mg Tablet PO 20 mg DAILY LINO Administration Polyethylene Glycol 17 gm 10/09/24 14:00 10/10/24 08:07 Polyethylene Glycol 3350 17 Gm Packet PO 17 gm DAILY LINO Administration Pravastatin Sodium 20 mg 10/05/24 22:00 10/09/24 21:27 Pravastatin 20 Mg Tablet PO 20 mg QHS LINO Administration Propranolol HCl 20 mg 10/05/24 22:00 10/10/24 08:06 Propranolol 10 Mg Tablet PO 20 mg BID LINO Administration Sodium Chloride 10 - 40 ml 10/05/24 16:21 10/09/24 13:42 0.9% Saline Lock 10 Ml Syringe IV 10 ml UD PRN Administration SALINE FLUSH Tamsulosin HCl 0.4 mg 10/06/24 17:30 10/09/24 17:27 Tamsulosin Hcl 0.4 Mg Capsule PO 0.4 mg Q24H LINO Administration Vancomycin Protocol 1 lab 10/10/24 10:30 10/10/24 10:38 Vancomycin Trough/Random Due 10/10/24 12:30 Not Given DAILY LINO PFSH Medical History Parkinson disease Hypertension Diabetes Home Medications ?Medication ?Instructions ?Recorded ?Last Taken ?Type carbidopa 25 mg-levodopa 250 mg 2 tab PO BID parkinson s 03/10/20 10/05/24 History tablet glimepiride 4 mg tablet 4 mg PO DAILY diabetes 03/1010/05/24 History lisinopril 20 1 tab PO DAILY blood pressur e 03/10/20 10/05/24 History mg-hydrochlorothiazide 25 mg tablet tamsulosin 0.4 mg capsule 0.4 mg PO Q24H retention 10/05/24 History cholecalciferol (vitamin D3) 50 50 mcg PO DAILY supple ment 11/09/22 10/05/24 History mcg (2,000 unit) tablet empagliflozin 25 mg tablet 25 mg PO DAILY diabetes 10/05/24 History (Jardiance) gabapentin 100 mg capsule 100 mg PO Q8H pain/neurapath y 11/09/22 10/05/24 History pravastatin 20 mg tablet 20 mg PO DAILY cholesterol 0 11/09/22 10/04/24 History cyclobenzaprine 10 mg tablet 10 mg PO TID pain 5 10/05/24 History doxycycline monohydrate 100 mg 100 mg PO BID infection 10/05/24 10/05/24 History capsule insulin NPH-regular 70-30 U-100 20 unit subcut .daily HS diabetes 10/05/24 10/04/24 History insulin 100 unit/mL subcutaneous pen (Novolin 70-30 FlexPen U-100 Insulin) insulin human U-100 NPH-regulr 30 unit subcut .daily A M diabetes 10/05/24 10/05/24 History 70-30 mix 100 unit/mL subcutaneous susp (Humulin 70/30 U-100 Insulin) omeprazole 20 mg capsule,delayed 20 mg PO DAILY heartb urn 10/05/24 10/05/24 History release propranolol 20 mg tablet 20 mg PO BID blood pressure 10/05/24 10/05/24 History Allergy/AdvReac Type Severity Reaction Status Date / Time No Known Allergies Allergy Verified 10/10/24 11:37 Surgical History History of partial amputation of toe of right foot h/o appendectomy Social History Smoking Status: Never smoker Review of Systems (Anesthesia) ROS Narrative System reviewed and no additional complaints, except as documented. 10/10/24 1202 <Electronically signed by Donny nash MD> Date _ Donny Cheng MD Cosigner Signature: Date CC: ~ Signed [facility] Work Phone: 1(875) 318-894008-28-2025 Progress note Author Elana Davis [facility] Note Date/Time October 10, 2024 11 :55am [facility] Medical Records Department [address] [place] [address] Progress Note 10/10/24 1154 MR#: [id number] Acct: [id number] Name: AMBROCIO JEFFERS Rep #:[id number] : 1950 74 From: Elana sesay DPM PCP: Dr. Elana Hickman, DO Status:ADM IN Location: [place] [id number] Subjective Subjective Patient seen prior to surgical intervention. He is willing to proceed forward with the third digit amputation this afternoon. Denies constitutional symptoms. Denies further complaints at this time. Objective Data Objective Data Vital Signs: Vital Signs Temp Pulse Resp BP Pulse Ox O2 Del Method 98.4 F 86 18 167/88 H 94 Room Air 10/10/24 07:55 10/10/24 07:55 10/10/24 07:55 10/10/24 07:55 10/10/24 07:55 10/10/24 07:55 Oxygen Delivery Method Room Air Weight: 108.8 kg Body Mass Index (BMI) 33.4 Intake & Output: Intake and Output for Last 24 Hours 10/08/24 10/09/24 10/10/24 23:59 23:59 23:59 Intake Total 550 / 550 1200 / 1200 275 / 275 Output Total 350 / 350 1500 / 1500 Balance 200 / 200 -300 / -300 275 / 275 Lab / Micro Data 10/10/24 06:05 10/10/24 06:05 Labs: Laboratory Results - last 24 hr 10/09/24 11:28: POC Glucose 256 H 10/09/24 16:06: POC Glucose 225 H 10/09/24 21:25: POC Glucose 142 H 10/10/24 06:05: WBC 7.8, RBC 4.60, Hgb 14.2, Hct 41.7, MCV 90.7, MCH 30.9, MCHC 34.1, RDW Std Deviation 41.0, RDW Coeff of Brant 12.4, Plt Count 260, MPV 10.7, Immature Gran % (Auto) 0.800, Neut % (Auto) 73.6 H, Lymph % (Auto) 10.7 L, Sanborn % (Auto) 10.7 H, Eos % (Auto) 3.8, Baso % (Auto) 0.4, Absolute Neuts (auto) 5.8,Absolute Lymphs (auto) 0.84, Nucleated RBC % 0, Sodium 140, Potassium 3.5, Chloride 103, Carbon Dioxide 24.4, Anion Gap 13, BUN 27 H, Creatinine 1.05, Estim Creat Clear Calc 78.61, Est GFR (MDRD) Non-Af 75, BUN/Creatinine Ratio 25.3 H, Glucose 144 H, Calcium 8.6 10/10/24 08:03: POC Glucose 121 H Radiography Diagnostic Testing: Radiology Impression Venous Doppler Study 10/09/24 13:36 Interpretation Summary Deep veins of the right lower extremity are patent and compressible segmentally.There is no evidence of right lower extremity deep vein thrombosis. Valvular competence appears intact within the proximal deep venous system on the right . The right great saphenous vein appears patent and compressible segmentally. The left common femoral vein is patent and compressible . Ordering Physician: Ryne Steward Referring Physician: Elana Hickman Performed By: Kiesha Shah RVT Physical Exam Const alert, oriented x3 and no apparent distress General Appearance: cooperative HEENT normocephalic Eyes Eyes Narrative: Wears glasses General Eye: normal appearance of both eyes Neck General: normal visual inspection Lymph Lymphatic: no lymphadenopathy noted and no lymphedema noted Resp normal respiratory effort Cardio regular rate and regular rhythm Extremity no calf tenderness Extremity Narrative: Bilateral lower extremity: Vascular: DP and PT pulses weakly palpable. CFT less than 5 seconds to the digits. Normal temperature gradient. Hair growth is diminished to digits and foot Neurologic: Gross sensation is intact. 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 Negative Jaramillo sign, negative Homans' sign. Pain to palpation about the lateralankle, anterior ankle, and medial ankle right lower extremity. Dermatological: There is erythema about the ankle to just above the ankle mortise/distal tibia right lower extremity. This has receded from the previous line of demarcation consistent with improving cellulitis. Third digit partial amputation of the right foot demonstrates superficial wound at the most distal stump. There is no surrounding erythema of the digit or foot, no purulent drainage from the digit site, no foul odor noted. No pain to palpation of the digit. Skin no rashes or lesions noted Neuro moves all extremities Assessment & Plan Assessment/Plan (1) Osteomyelitis of right foot: QUALIFIERS: Osteomyelitis type: subacute Qualified Code(s): M86.271 - Subacute osteomyelitis, right ankle and foot (2) Non-pressure chronic ulcer of other part of right foot with fat layer exposed: (3) Cellulitis of right foot: (4) Debility: PLAN: Plan Patient seen and evaluated I have reviewed previous radiographs of the right foot and ankle from 10/05/2024 and concur with radiographic read. Third digit wound of the right foot appears stable and noninfected with superficial ulceration appreciated at the distal tuft of the amputation stump. Cellulitis has improved in the right lower extremity with erythema mostly about the ankle at this present time. WBC currently 7.8 On 10/05/2024 ESR noted to be elevated at 251 and ESR at 37 MRI was obtained 10/07/2024 demonstrating likely osteomyelitis of the remaining osseous structures of the middle and distal phalanx of the third digit of the right foot. I have reviewed imaging osteomyelitis is questionable however givenconcern over any recurrence and for definitive treatment patient is agreeable toamputation of the third digit. Culture did demonstrate MSRA Currently on IV vancomycin Medicine team following for medical management, they are greatly appreciated. I discussed with the patient performing third digit amputation of the right foot. He is agreeable to this. Discussed the risks and complications of the procedure. Discussed postoperative postoperative care with patient at bedside this morning. Discussed his risks include but are not limited to the following:Pain, continued pain, phantom pain, complex regional pain syndrome, neuritis/numbness, swelling, scarring, poor cosmetic result, infection, dehiscence, nonhealing/delayed healing, need for further surgery/procedure, digital deformity secondary to the amputation of the surrounding digits, difficulty wearing shoe gear, difficulty with ambulation, inability to wear shoegear, addiction to pain medication, stroke, bleeding, heart attack, loss of function, loss of limb, loss of life. Patient is understanding of these and wasable to repeat these back. Patient wishes to proceed forward with the surgical intervention for definitive treatment. Surgical consent to be obtained. No promises were given. No guarantees were made. Patient to be consented for third digit amputation of the right foot. Patient will be n.p.o. after midnight Surgical intervention planned for 10/10/2024 at 12:30 PM Patient is ready to proceed forward with the surgical intervention today Will continue to follow while in house. Reach out to Dr. Davis for any questions or concerns. Elana Davis Jr. D.P.M. [facility] [phone] 10/10/24 1153 <Electronically signed by Elana Davis DPMauro> Elana Cheema Cosigner Signature (if applicable): CC: ~ Signed [facility] Work Phone: 1(166) 135-865108-28-2025 Consult note [facility] Medical Records Department [address] [place] [address] Anesthesia Postop Eval I 10/10/24 1342 MR#: [id number] Acct: [id number] Name: AMBROCIO JEFFERS Rep #:[id number] : 1950 74 From: Marcel PISANO PCP: Dr. Elana Hickman, DO Status:ADM IN Y Race: C Location: [place] [id number] -1 Anesthesia: Postop Eval I Current Vital Signs Temperature: 98 F Pulse Rate: 62 Blood Pressure: 95/60 Respiratory Rate: 16 Pulse Ox: 95 Oxygen Delivery Method: Room Air Assessment Airway patent: Yes Spontaneous unlabored respirations: Yes Mental status: Awake and Calm nausea: No Vomiting: No Anesthesia Complication: No Fluid Hydration Crystalloid volume administer (ml): 600 Total IV fluid infused: 600 Progress Note Anesthesia document: Postop Eval 1 completed: Yes 10/10/[address] [employer] FIRER> Date _ Marcel Sarah Signature: Date CC: ~ Signed [facility]08-28-2025 Progress note [facility] Medical Records Department [address] [place] [address] Progress Note - Hospitalist 10/10/24 0756 MR#: [id number] Acct: [id number] Name: AMBROCIO JEFFERS Rep #:[id number] : 1950 74 From: Ryne Steward DO PCP: Dr. Elana Hickman DO Status:ADM IN Location: [place] [address] Reason for Visit Chief Complaint: Right foot/ankle pain and swelling and generalized weakness Subjective Subjective No new complaints. States that his right leg is feeling better. Objective Data Objective Data Vital Signs: Vital Signs Temp Pulse Resp BP Pulse Ox O2 Del Method 36.4 C L 64 18 147/85 H 96 Room Air 10/10/24 02:15 10/10/24 02:15 10/10/24 02:15 10/10/24 02:15 10/10/24 02:15 10/10/24 03:00 Oxygen Delivery Method Room Air Weight: 108.8 kg Body Mass Index (BMI) 33.4 Intake & Output: Intake and Output for Last 24 Hours 10/08/24 10/09/24 10/10/24 23:59 23:59 23:59 Intake Total 550 / 550 1200 / 1200 275 / 275 Output Total 350 / 350 1500 / 1500 Balance 200 / 200 -300 / -300 275 / 275 Lab / Micro Data 10/10/24 06:05 10/10/24 06:05 Labs: Laboratory Results - last 24 hr 10/09/24 11:28: POC Glucose 256 H 10/09/24 16:06: POC Glucose 225 H 10/09/24 21:25: POC Glucose 142 H 10/10/24 06:05: WBC 7.8, RBC 4.60, Hgb 14.2, Hct 41.7, MCV 90.7, MCH 30.9, MCHC 34.1, RDW Std Deviation 41.0, RDW Coeff of Brant 12.4, Plt Count 260, MPV 10.7, Immature Gran % (Auto) 0.800, Neut % (Auto) 73.6 H, Lymph % (Auto) 10.7 L, Sanborn % (Auto) 10.7 H, Eos % (Auto) 3.8, Baso % (Auto) 0.4, Absolute Neuts (auto) 5.8,Absolute Lymphs (auto) 0.84, Nucleated RBC % 0 Radiography Diagnostic Testing: Radiology Impression Venous Doppler Study 10/09/24 13:36 Interpretation Summary Deep veins of the right lower extremity are patent and compressible segmentally.There is no evidence of right lower extremity deep vein thrombosis. Valvular competence appears intact within the proximal deep venous system on the right . The right great saphenous vein appears patent and compressible segmentally. The left common femoralvein is patent and compressible . Ordering Physician: Ryne Steward Referring Physician: Elana Hickman Performed By: Kiesha Shah RVT Physical Exam Const alert and no apparent distress HEENT head/scalp atraumatic and moist oral mucous membranes Resp normal respiratory effort and no retractions Extremity Extremity Narrative: Edema right lower extremity but nonpitting. Seems less pronounced than on the . Still has the lesion on the distal right third toe. Overall erythema seems to be improving. Neuro Sensorium / Orientation: awake, alert, oriented to person and oriented to place Psych affect normal Assessment & Plan Assessment/Plan (1) Cellulitis of leg, right: PLAN: On IV vancomycin Began today after debridement of his left third toe. Concerned that the third toe could be the nidus of the infection. MRI showed osteomyelitis of right 3rd toe. Podiatry following, planning on right foot 3rd digit amputation today. Duplex of RLE given the edema showed no DVT. Culture showing MRSA from September 10 (2) Debility: PLAN: requires much assistance for ambulation and this will be further complicated by surgery and off-loading, additionally complicated by Parkinson's disease Plan for SNF when medically stable. PLAN: Plan Chronic conditions: * DM2: glargine and SSI. resume empagliflozin as outpt. * parkinson's disease: carbidopa/levodopa * BPH: flomax VTE prophylaxis: LMWH. Disposition: To be determined. Charges/Coding Visit Charges Inpatient E&M: 30878 Subs Hosp L2 10/10/24 1340 Cosigner Signature (if applicable): CC: ~ Signed [facility]08-28-2025 Consult note [facility] Medical Records Department [address] [facility] [place] [address] Pre-Anesthesia Evaluation 10/10/24 1153 MR#: [id number] Acct: [id number] Name: AMBROCIO JEFFERS Rep #:[id number] : 1950 74 From: Donny Cheng MD PCP: Dr. Elana Hickman, DO Status:ADM IN Y Race: C Location: [place] [id number] -1 ASA Classification* ASA Classification ASA Classification: 3 Assessment & Plan Anesthesia* Anesthesia Assessment Anesthesia Assessment: Discussed sedation and/or anesthesia options, risks, benefits, and alternatives with patient/parents/legal guardian/POA. Questions invited. The patient/parents/legal guardian/POA seems to understand and agrees to proceedwith anesthesia plan. Reviewed the physical assessment, medical history, allergy history and patient home medications list prior to surgery/procedure/anesthetic and documented any changes. Performed airway and anesthesia risk assessments. Anesthesia Type Anesthesia Type: MAC History Source History Obtained from:: Patient and Chart Anesthesia Focused Assessment* Temperature: 98.4 F Pulse Rate: 86 Blood Pressure: 167/88 Respiratory Rate: 18 Pulse Ox: 94 Oxygen Delivery Method: Room Air Airway Assessment Mouth opens: >3 cm Mallampati Score: IV Teeth Condition: Dentures (Now full upper plate is out.) and Missing (Edentulouson the bottom.) Neck Range of motion (ROM): Limited ROM (Severe Restriction) Labs Anesthesia Preop lab: CBC WBC 7.8 K/mm3 (4.4-11.0) 10/10/24 06:05 10/10/24 RBC 4.60 M/mm3 (4.6-6.2) 10/10/24 06:05 10/10/24 Hgb 14.2 g/dL (13.0-16.5) 10/10/24 06:05 10/10/24 Hct 41.7 % (40-54) 10/10/24 06:05 10/10/24 Plt Count 260 K/mm3 (150-450) 10/10/24 06:05 10/10/24 CHEMISTRY Potassium 3.5 mmol/L (3.3-5.1) 10/10/24 06:05 10/10/24 Sodium 140 mmol/L (133-145) 10/10/24 06:05 10/10/24 BUN 27 mg/dL (4-19) H 10/10/24 06:05 10/10/24 Creatinine 1.05 mg/dL (0.70-1.20) 10/10/24 06:05 10/10/24 Glucose 144 mg/dL (70-99) H 10/10/24 06:05 10/10/24 POC Glucose 121 mg/dL (74-106) H 10/10/24 08:03 10/10/24 COAG PT 13.6 SECONDS (11.7-14.9) 11/09/22 11:50 Pre-Assessment Diagnosis/Proposed Procedure Planned Operative Procedure(s): Amputation right third toe Anesthesia History Anesthesia History - 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 When Was Last Pacemaker Check QUESTION #4 FULL TEXT: You/Your Family Experience fever (hyperthermia) with Anesthesia Last Oral Intake Last Oral intake: Last Oral Intake NPO since 00:00 10/10/24 10:32 Meds taken in AM with sips of Yes 10/10/24 10:32 water? Meds patient instructed to see MAR 10/10/24 10:32 take am of surgery PONV PONV - school psychometrist: PONV - school psychometrist Female HX of Motion Sickness HX of N/V After Surgery Non-Smoker Duration of Surgery greater than 60 minutes Number of Risk Factors PONV Score Height & Weight Height & Weight: Anesthesia: Height & Weight Height 5 ft 11 in 10/10/24 10:32 Weight: 108.8 kg 10/10/24 10:32 Body Mass Index (BMI) 33.4 10/10/24 10:32 Respiratory Assessment Respiratory Assessment - school psychometrist: Respiratory Tract Infection Hx - school psychometrist Hx Respiratory Tract Infection No 10/09/24 20:14 STOP Sleep Apnea STOP Sleep Apnea - school psychometrist: STOP Sleep Apnea - school psychometrist Hx Hypertension Yes 10/06/24 10:47 Hx Sleep Apnea No 10/05/24 15:38 CPAP BIPAP Do you snore loudly (louder No 10/05/24 15:38 than talking or can be heard Do you often feel tired/ No 10/05/24 15:38 fatigued/ sleepy during daytime? Has anyone observed you stop No 10/05/24 15:38 breathing during sleep? STOP Results Negative 10/05/24 15:38 QUESTION #5 FULL TEXT : Do you snore loudly (louder than talking or can be heard through closeddoors)? 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 Specify any problems Hx of Preganancy in last 3 N/A 10/05/24 15:38 Months Nurse Filling Out Transfusion FARHAD 10/05/24 15:38 & Questions: Date: 10/05/24 10/05/24 15:38 Time: 16:17 10/05/24 15:38 Patient unable to answer at this time (ie. confused, unrespo /Reproduction History /Reproductive History - school psychometrist: /Reproductive Hx- school psychometrist Hx Now No 10/09/24 20:14 Gestational Age (in weeks): EDC: Hx Hx Para Hx Section SAB No 10/09/24 20:14 Active Medications Active Medications: Current Medications Generic Name Dose Route Start Last Admin Trade Name Freq PRN Reason Stop Dose Admin Acetaminophen 1,000 mg 10/09/24 14:00 10/10/24 05:42 Acetaminophen 500 Mg Tablet PO 1,000 mg Q8 LINO Administration Carbidopa/Levodopa 2 tablet 10/05/24 16:00 10/10/24 08:06 Carbidopa/Levodopa 25/250 Tablet PO 2 tablet BIDAC LINO Administration Cholecalciferol 50 mcg 10/06/24 10:00 10/10/24 08:06 Cholecalciferol (Vit D3) 25 Mcg Tablet (1,000 Units) PO 50 mcg DAILY LINO Administration Cyclobenzaprine HCl 10 mg 10/05/24 15:38 10/09/24 07:56 Cyclobenzaprine Hcl 10 Mg Tablet PO 10 mg TID PRN Administration MUSCLE SPASM Enoxaparin Sodium 40 mg 10/06/24 10:00 10/10/24 08:10 Enoxaparin 40 Mg/0.4 Ml Syringe SC Not Given DAILY LINO Gabapentin 100 mg 10/05/24 22:00 10/10/24 05:43 Gabapentin 100 Mg Capsule PO 100 mg Q8H LINO Administration Glucagon 1 mg 10/05/24 15:38 Glucagon 1 Mg/Ml Syringe IM X1 PRN Hypoglycemia Protocol Vancomycin IV-PHARMACY TO DOSE 500 mls @ 250 mls/hr 10/05/24 15:38 1 each/ Sodium Chloride IV X1 PRN Rx to Dose Protocol Dextrose 250 mls @ 0 mls/hr 10/05/24 15:38 Dextrose 10%-Water IV .Q0M PRN HYPOGLYCEMIA Protocol As Directed Sodium Chloride 250 mls @ 15 mls/hr 10/05/24 20:34 10/09/24 07:00 IV Infused .[id number] PRN Infusion Saline Flush Sodium Chloride 250 mls @ 15 mls/hr 10/05/24 20:34 IV .[id number] PRN Additional IVPB Infusion Vancomycin HCl 1,250 mg/ 275 mls @ 167 mls/hr 10/07/24 00:00 10/10/24 01:25 Sodium Chloride IV Infused Q12H LINO Infusion Lactated Ringer's 1,000 mls @ 15 mls/hr 10/10/24 11:30 10/10/24 11:40 IV 15 mls/hr .Q48H LINO Administration Insulin Glargine 15 unit 10/05/24 22:00 10/10/24 09:47 Insulin Glargine-Yfgn 100 Unit/Ml Pen SC Not Given BID LINO Insulin Human Lispro 0 unit 10/05/24 16:00 10/10/24 08:05 Insulin Lispro 100 Unit/Ml Insuln.Pen SC Not Given ACHS [facility] Protocol Melatonin 3 mg 10/05/24 15:38 10/09/24 00:40 Melatonin 3 Mg Tablet PO 3 mg QHS PRN PRN Administration INSOMNIA Ondansetron HCl 4 mg 10/05/24 15:38 Ondansetron 4 Mg/2 Ml Vial IV Q8H PRN PRN NAUSEA/VOMITING Oxycodone HCl 5 mg 10/09/24 09:30 10/09/24 13:42 Oxycodone 5 Mg Tablet PO 5 mg Q4H PRN PRN Administration Pain Score 1-10 Pantoprazole Sodium 20 mg 10/06/24 10:00 10/10/24 08:06 Pantoprazole Sodium 20 Mg Tablet PO 20 mg DAILY LINO Administration Polyethylene Glycol 17 gm 10/09/24 14:00 10/10/24 08:07 Polyethylene Glycol 3350 17 Gm Packet PO 17 gm DAILY LINO Administration Pravastatin Sodium 20 mg 10/05/24 22:00 10/09/24 21:27 Pravastatin 20 Mg Tablet PO 20 mg QHS LINO Administration Propranolol HCl 20 mg 10/05/24 22:00 10/10/24 08:06 Propranolol 10 Mg Tablet PO 20 mg BID LINO Administration Sodium Chloride 10 - 40 ml 10/05/24 16:21 10/09/24 13:42 0.9% Saline Lock 10 Ml Syringe IV 10 ml UD PRN Administration SALINE FLUSH Tamsulosin HCl 0.4 mg 10/06/24 17:30 10/09/24 17:27 Tamsulosin Hcl 0.4 Mg Capsule PO 0.4 mg Q24H LINO Administration Vancomycin Protocol 1 lab 10/10/24 10:30 10/10/24 10:38 Vancomycin Trough/Random Due MC 10/10/24 12:30 Not Given DAILY [facility] PFSH Medical History Parkinson disease Hypertension Diabetes Home Medications ?Medication ?Instructions ?Recorded ?Last Taken ?Type carbidopa 25 mg-levodopa 250 mg 2 tab PO BID parkinson s 03/10/20 10/05/24 History tablet glimepiride 4 mg tablet 4 mg PO DAILY diabetes 03/1010/05/24 History lisinopril 20 1 tab PO DAILY blood pressur e 03/10/20 10/05/24 History mg-hydrochlorothiazide 25 mg tablet tamsulosin 0.4 mg capsule 0.4 mg PO Q24H retention 10/05/24 History cholecalciferol (vitamin D3) 50 50 mcg PO DAILY supple ment 11/09/22 10/05/24 History mcg (2,000 unit) tablet empagliflozin 25 mg tablet 25 mg PO DAILY diabetes 10/05/24 History (Jardiance) gabapentin 100 mg capsule 100 mg PO Q8H pain/neurapath y 11/09/22 10/05/24 History pravastatin 20 mg tablet 20 mg PO DAILY cholesterol 0 11/09/22 10/04/24 History cyclobenzaprine 10 mg tablet 10 mg PO TID pain 5 10/05/24 History doxycycline monohydrate 100 mg 100 mg PO BID infection 10/05/24 10/05/24 History capsule insulin NPH-regular 70-30 U-100 20 unit subcut .daily HS diabetes 10/05/24 10/04/24 History insulin 100 unit/mL subcutaneous pen (Novolin 70-30 FlexPen U-100 Insulin) insulin human U-100 NPH-regulr 30 unit subcut .daily A M diabetes 10/05/24 10/05/24 History 70-30 mix 100 unit/mL subcutaneous susp (Humulin 70/30 U-100 Insulin) omeprazole 20 mg capsule,delayed 20 mg PO DAILY heartb urn 10/05/24 10/05/24 History release propranolol 20 mg tablet 20 mg PO BID blood pressure 10/05/24 10/05/24 History Allergy/AdvReac Type Severity Reaction Status Date / Time No Known Allergies Allergy Verified 10/10/24 11:37 Surgical History History of partial amputation of toe of right foot h/o appendectomy Social History Smoking Status: Never smoker Review of Systems (Anesthesia) ROS Narrative System reviewed and no additional complaints, except as documented. 10/10/24 1202 charity ABDULLAHI> Date _ Donny Cheng MD Cosigner Signature: Date CC: ~ Signed [facility]08-28-2025 Progress note [facility] Medical Records Department [address] [place] [address] Progress Note 10/10/24 1154 MR#: [id number] Acct: [id number] Name: AMBROCIO JEFFERS Rep #:[id number] : 1950 74 From: Elana sesay DPM PCP: Dr. Elana Hickman, DO Status:ADM IN Location: [place] [id number] Subjective Subjective Patient seen prior to surgical intervention. He is willing to proceed forward with the third digit amputation this afternoon. Denies constitutional symptoms. Denies further complaints at this time. Objective Data Objective Data Vital Signs: Vital Signs Temp Pulse Resp BP Pulse Ox O2 Del Method 98.4 F 86 18 167/88 H 94 Room Air 10/10/24 07:55 10/10/24 07:55 10/10/24 07:55 10/10/24 07:55 10/10/24 07:55 10/10/24 07:55 Oxygen Delivery Method Room Air Weight: 108.8 kg Body Mass Index (BMI) 33.4 Intake & Output: Intake and Output for Last 24 Hours 10/08/24 10/09/24 10/10/24 23:59 23:59 23:59 Intake Total 550 / 550 1200 / 1200 275 / 275 Output Total 350 / 350 1500 / 1500 Balance 200 / 200 -300 / -300 275 / 275 Lab / Micro Data 10/10/24 06:05 10/10/24 06:05 Labs: Laboratory Results - last 24 hr 10/09/24 11:28: POC Glucose 256 H 10/09/24 16:06: POC Glucose 225 H 10/09/24 21:25: POC Glucose 142 H 10/10/24 06:05: WBC 7.8, RBC 4.60, Hgb 14.2, Hct 41.7, MCV 90.7, MCH 30.9, MCHC 34.1, RDW Std Deviation 41.0, RDW Coeff of Brant 12.4, Plt Count 260, MPV 10.7, Immature Gran % (Auto) 0.800, Neut % (Auto) 73.6 H, Lymph % (Auto) 10.7 L, Sanborn % (Auto) 10.7 H, Eos % (Auto) 3.8, Baso % (Auto) 0.4, Absolute Neuts (auto) 5.8,Absolute Lymphs (auto) 0.84, Nucleated RBC % 0, Sodium 140, Potassium 3.5, Chloride 103, Carbon Dioxide 24.4, Anion Gap 13, BUN 27 H, Creatinine 1.05, Estim Creat Clear Calc 78.61, Est GFR (MDRD) Non-Af 75, BUN/Creatinine Ratio 25.3 H, Glucose 144 H, Calcium 8.6 10/10/24 08:03: POC Glucose 121 H Radiography Diagnostic Testing: Radiology Impression Venous Doppler Study 10/09/24 13:36 Interpretation Summary Deep veins of the right lower extremity are patent and compressible segmentally.There is no evidence of right lower extremity deep vein thrombosis. Valvular competence appears intact within the proximal deep venous system on the right . The right great saphenous vein appears patent and compressible segmentally. The left common femoralvein is patent and compressible . Ordering Physician: Ryne Steward Referring Physician: Elana Hickman Performed By: Kiesha Shah RVT Physical Exam Const alert, oriented x3 and no apparent distress General Appearance: cooperative HEENT normocephalic Eyes Eyes Narrative: Wears glasses General Eye: normal appearance of both eyes Neck General: normal visual inspection Lymph Lymphatic: no lymphadenopathy noted and no lymphedema noted Resp normal respiratory effort Cardio regular rate and regular rhythm Extremity no calf tenderness Extremity Narrative: Bilateral lower extremity: Vascular: DP and PT pulses weakly palpable. CFT less than 5 seconds to the digits. Normal temperature gradient. Hair growth is diminished to digits and foot Neurologic: Gross sensation is intact. 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 Negative Jaramillo sign, negative Homans' sign. Pain to palpation about the lateralankle, anterior ankle, and medial ankle right lower extremity. Dermatological: There is erythema about the ankle to just above the ankle mortise/distal tibia right lower extremity. This has receded from the previous line of demarcation consistent with improving cellulitis. Third digit partial amputation of the right foot demonstrates superficial wound at the most distal stump. There is no surrounding erythema of the digit or foot, no purulent drainage from the digit site, no foul odor noted. No pain to palpation of the digit. Skin no rashes or lesions noted Neuro moves all extremities Assessment & Plan Assessment/Plan (1) Osteomyelitis of right foot: QUALIFIERS: Osteomyelitis type: subacute Qualified Code(s): M86.271 - Subacute osteomyelitis, rightankle and foot (2) Non-pressure chronic ulcer of other part of right foot with fat layer exposed: (3) Cellulitis of right foot: (4) Debility: PLAN: Plan Patient seen and evaluated I have reviewed previous radiographs of the right foot and ankle from 10/05/2024 and concur with radiographic read. Third digit wound of the right foot appears stable and noninfected with superficial ulceration appreciated at the distal tuft of the amputation stump. Cellulitis has improved in the right lower extremity with erythema mostly about the ankle at this present time. WBC currently 7.8 On 10/05/2024 ESR noted to be elevated at 251 and ESR at 37 MRI was obtained 10/07/2024 demonstrating likely osteomyelitis of the remaining osseous structures of the middle and distal phalanx of the third digit of the right foot. I have reviewed imaging osteomyelitis is questionable however givenconcern over any recurrence and for definitive treatment patient is agreeable toamputation of the third digit. Culture did demonstrate MSRA Currently on IV vancomycin Medicine team following for medical management, they are greatly appreciated. I discussed with the patient performing third digit amputation of the right foot. He is agreeable to this. Discussed the risks and complications of the procedure. Discussed postoperative postoperative care with patient at bedside this morning. Discussed his risks include but are not limited to the f ollowing:Pain, continued pain, phantom pain, complex regional pain syndrome, neuritis/numbness, swelling, scarring, poor cosmetic result, infection, dehiscence, nonhealing/delayed healing, need for further surgery/procedure, digital deformity secondary to the amputation of the surrounding digits, di fficulty wearing shoe gear, difficulty with ambulation, inability to wear shoegear, addiction to pain medication, stroke, bleeding, heart attack, loss of function, loss of limb, loss of life. Patientis understanding of these and wasable to repeat these back. Patient wishes to proceed forward with the surgical intervention for definitive treatment. Surgical consent to be obtained. No promises were given. No guarantees were made. Patient to be consented for third digit amputation of the right foot. Patient will be n.p.o. after midnight Surgical intervention planned for 10/10/2024 at 12:30 PM Patient is ready to proceed forward with the surgical intervention today Will continue to follow while in house. Reach out to Dr. Davis for any questions or concerns. [facility] [place] [phone] 10/10/24 1155 Elana Cheema Cosigner Signature (if applicable): CC: ~ Signed [facility]08-27-2025 Consult note Author Ever Schreiber [facility] Note Date/Time October 09, 2024 1: 56pm [facility] Medical Records Department [address] [place] [address] Consultation - Infectious Dx 10/09/24 1352 MR#: [id number] Acct: [id number] Name: AMBROCIO JEFFERS Rep #:[id number] : 1950 74 From: Ever santiago MD PCP: Dr. Elana Hickman, DO Status:ADM IN Location: MS3 [id number] Assessment & Plan Assessment/Plan (1) Osteomyelitis of right foot: QUALIFIERS: Osteomyelitis type: subacute Qualified Code(s): M86.271 - Subacute osteomyelitis, right ankle and foot PLAN: R 3rd toe presumed osteo. Wound cx with MRSA. OR planned for toe amp tomorrow. Cont vanc. Will follow, thank you HPI Consult Data Date of Consult: 10/09/24 HPI Narrative Reason for Consultation: osteo HPI Narrative: AMBROCIO JEFFERS, is a 74 M with h/o Parkinson and DM neuropathy, presented to ED 10/05 with one week worsening R 3rd toe redness after having debridement by Dr. Morgan 10/01. Redness spread up his leg, started on po doxy. Sx worsened, came toED, admitted on vanc. No fever, feeling ok today, OR planned. Full ROS performed and neg except as noted above. [facility] Medical History Parkinson disease Hypertension Diabetes Home Medications ?Medication ?Instructions ?Recorded ?Last Taken ?Type carbidopa 25 mg-levodopa 250 mg 2 tab PO BID parkinson s 03/10/20 10/05/24 History tablet glimepiride 4 mg tablet 4 mg PO DAILY diabetes 03/1010/05/24 History lisinopril 20 1 tab PO DAILY blood pressur e 03/10/20 10/05/24 History mg-hydrochlorothiazide 25 mg tablet tamsulosin 0.4 mg capsule 0.4 mg PO Q24H retention 10/05/24 History cholecalciferol (vitamin D3) 50 50 mcg PO DAILY supple ment 11/09/22 10/05/24 History mcg (2,000 unit) tablet empagliflozin 25 mg tablet 25 mg PO DAILY diabetes 10/05/24 History (Jardiance) gabapentin 100 mg capsule 100 mg PO Q8H pain/neurapath y 11/09/22 10/05/24 History pravastatin 20 mg tablet 20 mg PO DAILY cholesterol 0 11/09/22 10/04/24 History cyclobenzaprine 10 mg tablet 10 mg PO TID pain 2 5 10/05/24 History doxycycline monohydrate 100 mg 100 mg PO BID infection 10/05/24 10/05/24 History capsule insulin NPH-regular 70-30 U-100 20 unit subcut .daily HS diabetes 10/05/24 10/04/24 History insulin 100 unit/mL subcutaneous pen (Novolin 70-30 FlexPen U-100 Insulin) insulin human U-100 NPH-regulr 30 unit subcut .daily A M diabetes 10/05/24 10/05/24 History 70-30 mix 100 unit/mL subcutaneous susp (Humulin 70/30 U-100 Insulin) omeprazole 20 mg capsule,delayed 20 mg PO DAILY heartb urn 10/05/24 10/05/24 History release propranolol 20 mg tablet 20 mg PO BID blood pressure 10/05/24 10/05/24 History Allergy/AdvReac Type Severity Reaction Status Date / Time No Known Allergies Allergy Verified 10/05/24 11:37 Surgical History History of partial amputation of toe of right foot h/o appendectomy Social History Smoking Status: Never smoker Physical Exam Const alert and no apparent distress General Appearance: cooperative HEENT normocephalic and head/scalp atraumatic Eyes PERRL and EOMs intact bilaterally Neck supple and No nodes Resp normal air movement and clear to auscultation bilaterally Cardio regular rate and regular rhythm GI soft to palpation, non-tender and non-distended Extremity General Extremity: no tenderness to palpation of joints or extremities Skin Skin Narrative: Reviewed wound photos. RLE redness receding. Neuro CN's II-XII intact bilaterally Lab / Micro Data Attestation: I reviewed the patient's lab results. 10/09/24 04:47 10/09/24 04:47 Labs: Laboratory Results - last 24 hr 10/08/24 11:38: POC Glucose 314 H 10/08/24 16:37: POC Glucose 215 H 10/08/24 21:20: POC Glucose 219 H 10/09/24 04:47: WBC 9.3, RBC 4.56 L, Hgb 14.1, Hct 41.3, MCV 90.6, MCH 30.9, MCHC 34.1, RDW Std Deviation 41.5, RDW Coeff of Barnt 12.6, Plt Count 233, MPV 10.4, Immature Gran % (Auto) 0.600, Neut % (Auto) 71.1 H, Lymph % (Auto) 13.4 L,Sanborn % (Auto) 12.0 H, Eos % (Auto) 2.6, Baso % (Auto) 0.3, Absolute Neuts (auto)6.6, Absolute Lymphs (auto) 1.25, Nucleated RBC % 0, Sodium 141, Potassium 3.2 L, Chloride 106, Carbon Dioxide 24.0, Anion Gap 11, BUN 27 H, Creatinine 1.01, Estim Creat Clear Calc 81.72, Est GFR (MDRD) Non-Af 79, BUN/Creatinine Ratio 26.2 H, Glucose 159 H, Calcium 8.6 10/09/24 06:36: POC Glucose 154 H 10/09/24 11:28: POC Glucose 256 H 10/09/24 1356 <Electronically signed by Ever Schreiber MD> Cosigner Signature (if applicable): CC: Dr. Elana Hickman DO~ Signed [facility] Work Phone: [phone] 356-557308-27-2025 Progress note Author Ryne Steward [facility] Note Date/Time October 09, 2024 1: 39pm [facility] Medical Records Department [address] [place] [id number] Progress Note - Hospitalist 10/09/24 0801 MR#: [id number] Acct: [id number] Name: AMBROCIO JEFFERS Rep #:[id number] : 1950 74 From: Ryne Steward DO PCP: Dr. Elana Hickman, Status:ADM IN Location: [facility] [id number] Reason for Visit Chief Complaint: Right foot/ankle pain and swelling and generalized weakness Subjective Subjective No events overnight. Objective Data Objective Data Vital Signs: Vital Signs Temp Pulse Resp BP Pulse Ox O2 Del Method 36.6 C 70 17 144/76 H 98 Room Air 10/09/24 07:52 10/09/24 07:52 10/09/24 07:52 10/09/24 07:52 10/09/24 07:52 10/09/24 07:52 Oxygen Delivery Method Room Air Weight: 108.8 kg Body Mass Index (BMI) 33.4 Intake & Output: Intake and Output for Last 24 Hours 10/07/24 10/08/24 10/09/24 23:59 23:59 23:59 Intake Total 1650 / 1650 550 / 550 675 / 675 Output Total 1100 / 1100 350 / 350 600 / 600 Balance 550 / 550 200 / 200 75 / 75 Lab / Micro Data 10/09/24 04:47 10/09/24 04:47 Labs: Laboratory Results - last 24 hr 10/08/24 07:30: Sodium Cancelled, Potassium Cancelled, Chloride Cancelled, Carbon Dioxide Cancelled, Anion Gap Cancelled, BUN Cancelled, Creatinine Cancelled, Estim Creat Clear Calc Cancelled, Est GFR (MDRD) Non-Af Cancelled, BUN/Creatinine Ratio Cancelled, Glucose Cancelled, Calcium Cancelled 10/08/24 09:12: Sodium 142, Potassium 3.4, Chloride 102, Carbon Dioxide 24.7, Anion Gap 15, BUN 27 H, Creatinine 1.07, Estim Creat Clear Calc 77.13, Est GFR (MDRD) Non-Af 73, BUN/Creatinine Ratio 25.5 H, Glucose 145 H, Calcium 9.0 10/08/24 11:36: Vancomycin Trough 15.4 H 10/08/24 11:38: POC Glucose 314 H 10/08/24 16:37: POC Glucose 215 H 10/08/24 21:20: POC Glucose 219 H 10/09/24 04:47: WBC 9.3, RBC 4.56 L, Hgb 14.1, Hct 41.3, MCV 90.6, MCH 30.9, MCHC 34.1, RDW Std Deviation 41.5, RDW Coeff of Brant 12.6, Plt Count 233, MPV 10.4, Immature Gran % (Auto) 0.600, Neut % (Auto) 71.1 H, Lymph % (Auto) 13.4 L,Sanborn % (Auto) 12.0 H, Eos % (Auto) 2.6, Baso % (Auto) 0.3, Absolute Neuts (auto)6.6, Absolute Lymphs (auto) 1.25, Nucleated RBC % 0, Sodium 141, Potassium 3.2 L, Chloride 106, Carbon Dioxide 24.0, Anion Gap 11, BUN 27 H, Creatinine 1.01, Estim Creat Clear Calc 81.72, Est GFR (MDRD) Non-Af 79, BUN/Creatinine Ratio 26.2 H, Glucose 159 H, Calcium 8.6 10/09/24 06:36: POC Glucose 154 H Physical Exam Const alert and no apparent distress HEENT head/scalp atraumatic and moist oral mucous membranes Resp normal respiratory effort, no retractions, no use of accessory muscles and clearto auscultation bilaterally Cardio regular rate, regular rhythm, S1 normal heart sound and S2 normal heart sound GI normal to inspection, nondistended, normoactive bowel sounds, soft to palpation,non-tender and non-distended Extremity normal to inspection and full ROM Extremity Narrative: Swelling in distal right lower extremity. Neuro Sensorium / Orientation: awake and alert Assessment & Plan Assessment/Plan (1) Cellulitis of leg, right: PLAN: On IV vancomycin Began today after debridement of his left third toe. Concerned that the third toe could be the nidus of the infection. MRI showed osteomyelitis of right 3rd toe. Consult podiatry for definitive treatment and infectious disease for long-term antibiotics. Check duplex of RLE given the edema. (2) Debility: PLAN: complicated by cellulitis and Parkinson's disease Plan for SNF when medically stable. PLAN: Plan Chronic conditions: * DM2: glargine and SSI. resume empagliflozin as outpt. * parkinson's disease: carbidopa/levodopa * BPH: flomax VTE prophylaxis: LMWH. Charges/Coding Visit Charges Inpatient E&M: 84372 Subs Hosp L1 10/09/24 1335 <Electronically signed by Ryne Steward DO> Cosigner Signature (if applicable): CC: ~ Signed [facility] Work Phone: [phone] [id number] Consult note [facility] Medical Records Department [address] [place] [address] Consultation - Infectious Dx 10/09/24 1352 MR#: [id number] Acct: [id number] Name: AMBROCIO JEFFERS Rep #:[id number] : 1950 74 From: Ever santiago MD PCP: Dr. Elana Hickman, DO Status:ADM IN Location: MS3 [id number] Assessment & Plan Assessment/Plan (1) Osteomyelitis of right foot: QUALIFIERS: Osteomyelitis type: subacute Qualified Code(s): M86.271 - Subacute osteomyelitis, rightankle and foot PLAN: R 3rd toe presumed osteo. Wound cx with MRSA. OR planned for toe amp tomorrow. Cont vanc. Will follow, thank you HPI Consult Data Date of Consult: 10/09/24 HPI Narrative Reason for Consultation: osteo HPI Narrative: AMBROCIO JEFFERS, is a 74 M with h/o Parkinson and DM neuropathy, presented to ED 10/05 with one week worsening R 3rd toe redness after having debridement by Dr. Morgan 10/01. Redness spread up his leg, started on po doxy. Sx worsened, came toED, admitted on vanc. No fever, feeling ok today, OR planned. Full ROS performed and neg except as noted above. [facility] Medical History Parkinson disease Hypertension Diabetes Home Medications ?Medication ?Instructions ?Recorded ?Last Taken ?Type carbidopa 25 mg-levodopa 250 mg 2 tab PO BID parkinson s 03/10/20 10/05/24 History tablet glimepiride 4 mg tablet 4 mg PO DAILY diabetes 03/1010/05/24 History lisinopril 20 1 tab PO DAILY blood pressur e 03/10/20 10/05/24 History mg-hydrochlorothiazide 25 mg tablet tamsulosin 0.4 mg capsule 0.4 mg PO Q24H retention 10/05/24 History cholecalciferol (vitamin D3) 50 50 mcg PO DAILY supple ment 11/09/22 10/05/24 History mcg (2,000 unit) tablet empagliflozin 25 mg tablet 25 mg PO DAILY diabetes 10/05/24 History (Jardiance) gabapentin 100 mg capsule 100 mg PO Q8H pain/neurapath y 11/09/22 10/05/24 History pravastatin 20 mg tablet 20 mg PO DAILY cholesterol 0 11/09/22 10/04/24 History cyclobenzaprine 10 mg tablet 10 mg PO TID pain 5 10/05/24 History doxycycline monohydrate 100 mg 100 mg PO BID infection 10/05/24 10/05/24 History capsule insulin NPH-regular 70-30 U-100 20 unit subcut .daily HS diabetes 10/05/24 10/04/24 History insulin 100 unit/mL subcutaneous pen (Novolin 70-30 FlexPen U-100 Insulin) insulin human U-100 NPH-regulr 30 unit subcut .daily A M diabetes 10/05/24 10/05/24 History 70-30 mix 100 unit/mL subcutaneous susp (Humulin 70/30 U-100 Insulin) omeprazole 20 mg capsule,delayed 20 mg PO DAILY heartb urn 10/05/24 10/05/24 History release propranolol 20 mg tablet 20 mg PO BID blood pressure 10/05/24 10/05/24 History Allergy/AdvReac Type Severity Reaction Status Date / Time No Known Allergies Allergy Verified 10/05/24 11:37 Surgical History History of partial amputation of toe of right foot h/o appendectomy Social History Smoking Status: Never smoker Physical Exam Const alert and no apparent distress General Appearance: cooperative HEENT normocephalic and head/scalp atraumatic Eyes PERRL and EOMs intact bilaterally Neck supple and No nodes Resp normal air movement and clear to auscultation bilaterally Cardio regular rate and regular rhythm GI soft to palpation, non-tender and non-distended Extremity General Extremity: no tenderness to palpation of joints or extremities Skin Skin Narrative: Reviewed wound photos. RLE redness receding. Neuro CN's II-XII intact bilaterally Lab / Micro Data Attestation: I reviewed the patient's lab results. 10/09/24 04:47 10/09/24 04:47 Labs: Laboratory Results - last 24 hr 10/08/24 11:38: POC Glucose 314 H 10/08/24 16:37: POC Glucose 215 H 10/08/24 21:20: POC Glucose 219 H 10/09/24 04:47: WBC 9.3, RBC 4.56 L, Hgb 14.1, Hct 41.3, MCV 90.6, MCH 30.9, MCHC 34.1, RDW Std Deviation 41.5, RDW Coeff of Brant 12.6, Plt Count 233, MPV 10.4, Immature Gran % (Auto) 0.600, Neut % (Auto) 71.1 H, Lymph % (Auto) 13.4 L,[place] % (Auto) 12.0 H, Eos % (Auto) 2.6, Baso % (Auto) 0.3, Absolute Neuts (auto)6.6, Absolute Lymphs (auto) 1.25, Nucleated RBC % 0, Sodium 141, Potassium 3.2 L, Chloride 106, Carbon Dioxide 24.0, Anion Gap 11, BUN 27 H, Creatinine 1.01, Estim Creat Clear Calc 81.72, Est GFR (MDRD) Non-Af 79, BUN/Creatinine Ratio 26.2 H, Glucose 159 H, Calcium 8.6 10/09/24 06:36: POC Glucose 154 H 10/09/24 11:28: POC Glucose 256 H 10/09/24 1356 Cosigner Signature (if applicable): CC: Dr. Elana Hickman DO~ Signed [facility]08-27-2025 Progress note [facility] Medical Records Department [address] [place] [address] Progress Note - Hospitalist 10/09/24 0801 MR#: [id number] Acct: [id number] Name: AMBROCIO JEFFERS Rep #:[id number] : 1950 74 From: Ryne Steward DO PCP: Dr. Elana Hickman DO Status:ADM IN Location: [place] [id number] Reason for Visit Chief Complaint: Right foot/ankle pain and swelling and generalized weakness Subjective Subjective No events overnight. Objective Data Objective Data Vital Signs: Vital Signs Temp Pulse Resp BP Pulse Ox O2 Del Method 36.6 C 70 17 144/76 H 98 Room Air 10/09/24 07:52 10/09/24 07:52 10/09/24 07:52 10/09/24 07:52 10/09/24 07:52 10/09/24 07:52 Oxygen Delivery Method Room Air Weight: 108.8 kg Body Mass Index (BMI) 33.4 Intake & Output: Intake and Output for Last 24 Hours 10/07/24 10/08/24 10/09/24 23:59 23:59 23:59 Intake Total 1650 / 1650 550 / 550 675 / 675 Output Total 1100 / 1100 350 / 350 600 / 600 Balance 550 / 550 200 / 200 75 / 75 Lab / Micro Data 10/09/24 04:47 10/09/24 04:47 Labs: Laboratory Results - last 24 hr 10/08/24 07:30: Sodium Cancelled, Potassium Cancelled, Chloride Cancelled, Carbon Dioxide Cancelled, Anion Gap Cancelled, BUN Cancelled, Creatinine Cancelled, Estim Creat Clear Calc Cancelled, Est GFR (MDRD) Non-Af Cancelled, BUN/Creatinine Ratio Cancelled, Glucose Cancelled, Calcium Cancelled 10/08/24 09:12: Sodium 142, Potassium 3.4, Chloride 102, Carbon Dioxide 24.7, Anion Gap 15, BUN 27 H, Creatinine 1.07, Estim Creat Clear Calc 77.13, Est GFR (MDRD) Non-Af 73, BUN/Creatinine Ratio 25.5 H, Glucose 145 H, Calcium 9.0 10/08/24 11:36: Vancomycin Trough 15.4 H 10/08/24 11:38: POC Glucose 314 H 10/08/24 16:37: POC Glucose 215 H 10/08/24 21:20: POC Glucose 219 H 10/09/24 04:47: WBC 9.3, RBC 4.56 L, Hgb 14.1, Hct 41.3, MCV 90.6, MCH 30.9, MCHC 34.1, RDW Std Deviation 41.5, RDW Coeff of Brant 12.6, Plt Count 233, MPV 10.4, Immature Gran % (Auto) 0.600, Neut % (Auto) 71.1 H, Lymph % (Auto) 13.4 L,[place] % (Auto) 12.0 H, Eos % (Auto) 2.6, Baso % (Auto) 0.3, Absolute Neuts (auto)6.6, Absolute Lymphs (auto) 1.25, Nucleated RBC % 0, Sodium 141, Potassium 3.2 L, Chloride 106, Carbon Dioxide 24.0, Anion Gap 11, BUN 27 H, Creatinine 1.01, Estim Creat Clear Calc 81.72, Est GFR (MDRD) Non-Af 79, BUN/Creatinine Ratio 26.2 H, Glucose 159 H, Calcium 8.6 10/09/24 06:36: POC Glucose 154 H Physical Exam Const alert and no apparent distress HEENT head/scalp atraumatic and moist oral mucous membranes Resp normal respiratory effort, no retractions, no use of accessory muscles and clearto auscultation bilaterally Cardio regular rate, regular rhythm, S1 normal heart sound and S2 normal heart sound GI normal to inspection, nondistended, normoactive bowel sounds, soft to palpation,non-tender and non-distended Extremity normal to inspection and full ROM Extremity Narrative: Swelling in distal right lower extremity. Neuro Sensorium / Orientation: awake and alert Assessment & Plan Assessment/Plan (1) Cellulitis of leg, right: PLAN: On IV vancomycin Began today after debridement of his left third toe. Concerned that the third toe could be the nidus of the infection. MRI showed osteomyelitis of right 3rd toe. Consult podiatry for definitive treatment and infectious disease for long-term antibiotics. Check duplex of RLE given the edema. (2) Debility: PLAN: complicated by cellulitis and Parkinson's disease Plan for SNF when medically stable. PLAN: Plan Chronic conditions: * DM2: glargine and SSI. resume empagliflozin as outpt. * parkinson's disease: carbidopa/levodopa * BPH: flomax VTE prophylaxis: LMWH. Charges/Coding Visit Charges Inpatient E&M: 81490 Subs Hosp L1 10/09/24 1339 Cosigner Signature (if applicable): CC: ~ Signed [facility]08-27-2025 Consult note Author Elana Davis [facility] Note Date/Time October 09, 2024 8: 11am [facility] Medical Records Department [address] [place] [address] Consultation 10/09/24 0749 MR#: [id number] Acct: [id number] Name: AMBROCIO JEFFERS Rep #:[id number] : 1950 74 From: Elana sesay DPM PCP: Dr. Elana Hickman, DO Status:ADM IN Location: [facility] TQ443-5 Assessment & Plan Assessment/Plan (1) Osteomyelitis of right foot: QUALIFIERS: Osteomyelitis type: subacute Qualified Code(s): M86.271 - Subacute osteomyelitis, right ankle and foot (2) Non-pressure chronic ulcer of other part of right foot with fat layer exposed: (3) Cellulitis of right foot: (4) Debility: PLAN: Plan Patient seen and evaluated I have reviewed previous radiographs of the right foot and ankle from 10/05/2024 and concur with radiographic read. Third digit wound of the right foot appears stable and noninfected with superficial ulceration appreciated at the distal tuft of the amputation stump. Cellulitis has improved in the right lower extremity with erythema mostly about the ankle at this present time. WBC currently 9.3 On 10/05/2024 ESR noted to be elevated at 251 and ESR at 37 MRI was obtained 10/07/2024 demonstrating likely osteomyelitis of the remaining osseous structures of the middle and distal phalanx of the third digit of the right foot. I have reviewed imaging osteomyelitis is questionable however givenconcern over any recurrence and for definitive treatment patient is agreeable toamputation of the third digit. Currently on IV vancomycin Medicine team following for medical management, they are greatly appreciated. I discussed with the patient performing third digit amputation of the right foot. He is agreeable to this. Discussed the risks and complications of the procedure. Discussed postoperative postoperative care with patient at bedside this morning. Discussed his risks include but are not limited to the following:Pain, continued pain, phantom pain, complex regional pain syndrome, neuritis/numbness, swelling, scarring, poor cosmetic result, infection, dehiscence, nonhealing/delayed healing, need for further surgery/procedure, digital deformity secondary to the amputation of the surrounding digits, difficulty wearing shoe gear, difficulty with ambulation, inability to wear shoegear, addiction to pain medication, stroke, bleeding, heart attack, loss of function, loss of limb, loss of life. Patient is understanding of these and wasable to repeat these back. Patient wishes to proceed forward with the surgical intervention for definitive treatment. Surgical consent to be obtained. No promises were given. No guarantees were made. Patient to be consented for third digit amputation of the right foot. Patient will be n.p.o. after midnight Surgical intervention planned for 10/10/2024 at 12:30 PM Will continue to follow while in house. Reach out to Dr. Davis for any questions or concerns. Jr. Harpreet Watson.P.M. [facility] [phone] HPI Consult Data Date of Consult: 10/09/24 HPI Narrative Reason for Consultation: Third digit ulceration right foot HPI Narrative: AMBROCIO JEFFERS, is a 74 M who presents to [facility] afternoon of 10/05/2024 for right ankle and foot pain with swelling and generalized weakness. He has PMHx of DM type II with peripheral polyneuropathy, Parkinson's disease, Hx of falls secondary to Parkinson's, HTN. Reports that he does follow with and had a debridement of the third digit of the right foot in office on 10/01/2024. States that he previously underwent distal phalanx amputation but had developed a small wound at the tip of the toe after amputation and has been going for serial debridement. States that he did fall the morning of 10/03/2024 and states that the ankle did become red and painful after this. Due to rednesshe was also started on doxycycline by Dr. Morgan however they state redness did not improve nor did pain and thus he presented to the ED. While in ED he did undergo workup with no leukocytosis noted and afebrile status. Inflammatory markers were elevated with CRP 251 and ESR of 37. He did have negative foot x-rays and ankle x-rays. He was given dose of vancomycin in the ED and admitted for cellulitis and weakness. Patient denies N/V/F/chills. 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 Denies further complaints. Podiatry consulted for evaluation of his third digit wound. [facility] Medical History Parkinson disease Hypertension Diabetes Home Medications ?Medication ?Instructions ?Recorded ?Last Taken ?Type carbidopa 25 mg-levodopa 250 mg 2 tab PO BID parkinson s 03/10/20 10/05/24 History tablet glimepiride 4 mg tablet 4 mg PO DAILY diabetes 03/1010/05/24 History lisinopril 20 1 tab PO DAILY blood pressur e 03/10/20 10/05/24 History mg-hydrochlorothiazide 25 mg tablet tamsulosin 0.4 mg capsule 0.4 mg PO Q24H retention 10/05/24 History cholecalciferol (vitamin D3) 50 50 mcg PO DAILY supple ment 11/09/22 10/05/24 History mcg (2,000 unit) tablet empagliflozin 25 mg tablet 25 mg PO DAILY diabetes 10/05/24 History (Jardiance) gabapentin 100 mg capsule 100 mg PO Q8H pain/neurapath y 11/09/22 10/05/24 History pravastatin 20 mg tablet 20 mg PO DAILY cholesterol 0 11/09/22 10/04/24 History cyclobenzaprine 10 mg tablet 10 mg PO TID pain 5 10/05/24 History doxycycline monohydrate 100 mg 100 mg PO BID infection 10/05/24 10/05/24 History capsule insulin NPH-regular 70-30 U-100 20 unit subcut .daily HS diabetes 10/05/24 10/04/24 History insulin 100 unit/mL subcutaneous pen (Novolin 70-30 FlexPen U-100 Insulin) insulin human U-100 NPH-regulr 30 unit subcut .daily A M diabetes 10/05/24 10/05/24 History 70-30 mix 100 unit/mL subcutaneous susp (Humulin 70/30 U-100 Insulin) omeprazole 20 mg capsule,delayed 20 mg PO DAILY heartb urn 10/05/24 10/05/24 History release propranolol 20 mg tablet 20 mg PO BID blood pressure 10/05/24 10/05/24 History Allergy/AdvReac Type Severity Reaction Status Date / Time No Known Allergies Allergy Verified 10/05/24 11:37 Surgical History History of partial amputation of toe of right foot h/o appendectomy Social History Smoking Status: Never smoker ROS Constitutional Constitutional: Reports fatigue and weakness; Denies body ache(s), chills or fever(s) Eyes Eyes: Denies change in vision, diplopia or loss of vision ENT HEENT: Denies dysphagia, nasal congestion or rhinorrhea Cardiovascular Cardiovascular: Denies chest pain, claudication or palpitations Respiratory/Chest Respiratory/Chest: Denies dyspnea, shortness of breath at rest or wheezing Gastrointestinal Gastrointestinal: Denies abdominal pain, constipation, diarrhea, nausea or vomiting Genitourinary Genitourinary: Denies dysuria, urinary frequency or urinary urgency Musculoskeletal Musculoskeletal: Denies joint pain, joint stiffness or joint swelling Integumentary Integumentary: Denies jaundice, lesions or pruritus Neurologic Neurologic: Denies dizziness, numbness or seizures Psychiatric Psychiatric: Denies anxiety or depression Endocrine Endocrinology: Denies polydipsia, polyphagia or polyuria Hematologic/Lymphatic Hematologic/Lymphatic: Denies easy bleeding or easy bruising Allergic/Immunologic Allergic/Immunologic: Denies urticaria Physical Exam Const alert, oriented x3 and no apparent distress General Appearance: cooperative HEENT normocephalic Eyes Eyes Narrative: Wears glasses General Eye: normal appearance of both eyes Neck General: normal visual inspection Lymph Lymphatic: no lymphadenopathy noted and no lymphedema noted Resp normal respiratory effort Cardio regular rate and regular rhythm Extremity no calf tenderness Extremity Narrative: Bilateral lower extremity: Vascular: DP and PT pulses weakly palpable. CFT less than 5 seconds to the digits. Normal temperature gradient. Hair growth is diminished to digits and foot Neurologic: Gross sensation is intact. 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 Negative Jaramillo sign, negative Homans' sign. Pain to palpation about the lateralankle, anterior ankle, and medial ankle right lower extremity. Dermatological: There is erythema about the ankle to just above the ankle mortise/distal tibia right lower extremity. This has receded from the previous line of demarcation consistent with improving cellulitis. Third digit partial amputation of the right foot demonstrates superficial wound at the most distal stump. There is no surrounding erythema of the digit or foot, no purulent drainage from the digit site, no foul odor noted. No pain to palpation of the digit. Skin no rashes or lesions noted Neuro moves all extremities Lab / Micro Data 10/09/24 04:47 10/09/24 04:47 Labs: Laboratory Results - last 24 hr 10/08/24 07:30: Sodium Cancelled, Potassium Cancelled, Chloride Cancelled, Carbon Dioxide Cancelled, Anion Gap Cancelled, BUN Cancelled, Creatinine Cancelled, Estim Creat Clear Calc Cancelled, Est GFR (MDRD) Non-Af Cancelled, BUN/Creatinine Ratio Cancelled, Glucose Cancelled, Calcium Cancelled 10/08/24 09:12: Sodium 142, Potassium 3.4, Chloride 102, Carbon Dioxide 24.7, Anion Gap 15, BUN 27 H, Creatinine 1.07, Estim Creat Clear Calc 77.13, Est GFR (MDRD) Non-Af 73, BUN/Creatinine Ratio 25.5 H, Glucose 145 H, Calcium 9.0 10/08/24 11:36: Vancomycin Trough 15.4 H 10/08/24 11:38: POC Glucose 314 H 10/08/24 16:37: POC Glucose 215 H 10/08/24 21:20: POC Glucose 219 H 10/09/24 04:47: WBC 9.3, RBC 4.56 L, Hgb 14.1, Hct 41.3, MCV 90.6, MCH 30.9, MCHC 34.1, RDW Std Deviation 41.5, RDW Coeff of Brant 12.6, Plt Count 233, MPV 10.4, Immature Gran % (Auto) 0.600, Neut % (Auto) 71.1 H, Lymph % (Auto) 13.4 L,[place] % (Auto) 12.0 H, Eos % (Auto) 2.6, Baso % (Auto) 0.3, Absolute Neuts (auto)6.6, Absolute Lymphs (auto) 1.25, Nucleated RBC % 0, Sodium 141, Potassium 3.2 L, Chloride 106, Carbon Dioxide 24.0, Anion Gap 11, BUN 27 H, Creatinine 1.01, Estim Creat Clear Calc 81.72, Est GFR (MDRD) Non-Af 79, BUN/Creatinine Ratio 26.2 H, Glucose 159 H, Calcium 8.6 10/09/24 06:36: POC Glucose 154 H 10/09/24 0811 <Electronically signed by Elana Davis DPM> Cosigner Signature (if applicable): CC: Dr. Elana Hickman, ~ Signed [facility] Work Phone: [phone] 525-751908-27-2025 Consult note [facility] Medical Records Department [address] [place] [address] Consultation 10/09/24 0749 MR#: [id number] Acct: [id number] Name: AMBROCIO JEFFERS Rep #:[id number] : 1950 74 From: Elana sesay DPM PCP: Dr. Elana Hickman DO Status:ADM IN Location: [facility]3 [id number] Assessment & Plan Assessment/Plan (1) Osteomyelitis of right foot: QUALIFIERS: Osteomyelitis type: subacute Qualified Code(s): M86.271 - Subacute osteomyelitis, rightankle and foot (2) Non-pressure chronic ulcer of other part of right foot with fat layer exposed: (3) Cellulitis of right foot: (4) Debility: PLAN: Plan Patient seen and evaluated I have reviewed previous radiographs of the right foot and ankle from 10/05/2024 and concur with radiographic read. Third digit wound of the right foot appears stable and noninfected with superficial ulceration appreciated at the distal tuft of the amputation stump. Cellulitis has improved in the right lower extremity with erythema mostly about the ankle at this present time. WBC currently 9.3 On 10/05/2024 ESR noted to be elevated at 251 and ESR at 37 MRI was obtained 10/07/2024 demonstrating likely osteomyelitis of the remaining osseous structures of the middle and distal phalanx of the third digit of the right foot. I have reviewed imaging osteomyelitis is questionable however givenconcern over any recurrence and for definitive treatment patient is agreeable toamputation of the third digit. Currently on IV vancomycin Medicine team following for medical management, they are greatly appreciated. I discussed with the patient performing third digit amputation of the right foot. He is agreeable to this. Discussed the risks and complications of the procedure. Discussed postoperative postoperative care with patient at bedside this morning. Discussed his risks include but are not limited to the f ollowing:Pain, continued pain, phantom pain, complex regional pain syndrome, neuritis/numbness, swelling, scarring, poor cosmetic result, infection, dehiscence, nonhealing/delayed healing, need for further surgery/procedure, digital deformity secondary to the amputation of the surrounding digits, di fficulty wearing shoe gear, difficulty with ambulation, inability to wear shoegear, addiction to pain medication, stroke, bleeding, heart attack, loss of function, loss of limb, loss of life. Patientis understanding of these and wasable to repeat these back. Patient wishes to proceed forward with the surgical intervention for definitive treatment. Surgical consent to be obtained. No promises were given. No guarantees were made. Patient to be consented for third digit amputation of the right foot. Patient will be n.p.o. after midnight Surgical intervention planned for 10/10/2024 at 12:30 PM Will continue to follow while in house. Reach out to Dr. Davis for any questions or concerns. Elana Davis Jr. D.P.M. [facility] [phone] HPI Consult Data Date of Consult: 10/09/24 HPI Narrative Reason for Consultation: Third digit ulceration right foot HPI Narrative: AMBROCIO JEFFERS, is a 74 M who presents to [facility] afternoon of 10/05/2024 for rightankle and foot pain with swelling and generalized weakness. He has PMHx of DM type II with peripheral polyneuropathy, Parkinson's disease, Hx of falls secondary to Parkinson's, HTN. Reports that he does follow with and had a debridement of the third digit of the right foot in office on 10/01/2024. States that he previously underwent distal phalanx amputation but had developed a small woundat the tip of the toe after amputation and has been going for serial debridement. States that he did fall the morning of 10/03/2024 and states that the ankle did become red and painful after this. Dueto rednesshe was also started on doxycycline by Dr. Morgan however they state redness did not improvenor did pain and thus he presented to the ED. While in ED he did undergo workup with no leukocytosis noted and afebrile status. Inflammatory markers were elevated with CRP 251 and ESR of 37. He did have negative foot x-rays and ankle x-rays. He was given dose of vancomycin in the ED and admitted for cellulitis and weakness. Patient denies N/V/F/chills. 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 Denies further complaints. Podiatry consulted for evaluation of his third digit wound. [facility] Medical History Parkinson disease Hypertension Diabetes Home Medications ?Medication ?Instructions ?Recorded ?Last Taken ?Type carbidopa 25 mg-levodopa 250 mg 2 tab PO BID parkinson s 03/10/20 10/05/24 History tablet glimepiride 4 mg tablet 4 mg PO DAILY diabetes 03/1010/05/24 History lisinopril 20 1 tab PO DAILY blood pressur e 03/10/20 10/05/24 History mg-hydrochlorothiazide 25 mg tablet tamsulosin 0.4 mg capsule 0.4 mg PO Q24H retention 10/05/24 History cholecalciferol (vitamin D3) 50 50 mcg PO DAILY supple ment 11/09/22 10/05/24 History mcg (2,000 unit) tablet empagliflozin 25 mg tablet 25 mg PO DAILY diabetes 10/05/24 History (Jardiance) gabapentin 100 mg capsule 100 mg PO Q8H pain/neurapath y 11/09/22 10/05/24 History pravastatin 20 mg tablet 20 mg PO DAILY cholesterol 0 11/09/22 10/04/24 History cyclobenzaprine 10 mg tablet 10 mg PO TID pain 5 10/05/24 History doxycycline monohydrate 100 mg 100 mg PO BID infection 10/05/24 10/05/24 History capsule insulin NPH-regular 70-30 U-100 20 unit subcut .daily HS diabetes 10/05/24 10/04/24 History insulin 100 unit/mL subcutaneous pen (Novolin 70-30 FlexPen U-100 Insulin) insulin human U-100 NPH-regulr 30 unit subcut .daily A M diabetes 10/05/24 10/05/24 History 70-30 mix 100 unit/mL subcutaneous susp (Humulin 70/30 U-100 Insulin) omeprazole 20 mg capsule,delayed 20 mg PO DAILY heartb urn 10/05/24 10/05/24 History release propranolol 20 mg tablet 20 mg PO BID blood pressure 10/05/24 10/05/24 History Allergy/AdvReac Type Severity Reaction Status Date / Time No Known Allergies Allergy Verified 10/05/24 11:37 Surgical History History of partial amputation of toe of right foot h/o appendectomy Social History Smoking Status: Never smoker ROS Constitutional Constitutional: Reports fatigue and weakness; Denies body ache(s), chills or fever(s) Eyes Eyes: Denies change in vision, diplopia or loss of vision ENT HEENT: Denies dysphagia, nasal congestion or rhinorrhea Cardiovascular Cardiovascular: Denies chest pain, claudication or palpitations Respiratory/Chest Respiratory/Chest: Denies dyspnea, shortness of breath at rest or wheezing Gastrointestinal Gastrointestinal: Denies abdominal pain, constipation, diarrhea, nausea or vomiting Genitourinary Genitourinary: Denies dysuria, urinary frequency or urinary urgency Musculoskeletal Musculoskeletal: Denies joint pain, joint stiffness or joint swelling Integumentary Integumentary: Denies jaundice, lesions or pruritus Neurologic Neurologic: Denies dizziness, numbness or seizures Psychiatric Psychiatric: Denies anxiety or depression Endocrine Endocrinology: Denies polydipsia, polyphagia or polyuria Hematologic/Lymphatic Hematologic/Lymphatic: Denies easy bleeding or easy bruising Allergic/Immunologic Allergic/Immunologic: Denies urticaria Physical Exam Const alert, oriented x3 and no apparent distress General Appearance: cooperative HEENT normocephalic Eyes Eyes Narrative: Wears glasses General Eye: normal appearance of both eyes Neck General: normal visual inspection Lymph Lymphatic: no lymphadenopathy noted and no lymphedema noted Resp normal respiratory effort Cardio regular rate and regular rhythm Extremity no calf tenderness Extremity Narrative: Bilateral lower extremity: Vascular: DP and PT pulses weakly palpable. CFT less than 5 seconds to the digits. Normal temperature gradient. Hair growth is diminished to digits and foot Neurologic: Gross sensation is intact. 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 Negative Jaramillo sign, negative Homans' sign. Pain to palpation about the lateralankle, anterior ankle, and medial ankle right lower extremity. Dermatological: There is erythema about the ankle to just above the ankle mortise/distal tibia right lower extremity. This has receded from the previous line of demarcation consistent with improving cellulitis. Third digit partial amputation of the right foot demonstrates superficial wound at the most distal stump. There is no surrounding erythema of the digit or foot, no purulent drainage from the digit site, no foul odor noted. No pain to palpation of the digit. Skin no rashes or lesions noted Neuro moves all extremities Lab / Micro Data 10/09/24 04:47 10/09/24 04:47 Labs: Laboratory Results - last 24 hr 10/08/24 07:30: Sodium Cancelled, Potassium Cancelled, Chloride Cancelled, Carbon Dioxide Cancelled, Anion Gap Cancelled, BUN Cancelled, Creatinine Cancelled, Estim Creat Clear Calc Cancelled, Est GFR (MDRD) Non-Af Cancelled, BUN/Creatinine Ratio Cancelled, Glucose Cancelled, Calcium Cancelled 10/08/24 09:12: Sodium 142, Potassium 3.4, Chloride 102, Carbon Dioxide 24.7, Anion Gap 15, BUN 27 H, Creatinine 1.07, Estim Creat Clear Calc 77.13, Est GFR (MDRD) Non-Af 73, BUN/Creatinine Ratio 25.5 H, Glucose 145 H, Calcium 9.0 10/08/24 11:36: Vancomycin Trough 15.4 H 10/08/24 11:38: POC Glucose 314 H 10/08/24 16:37: POC Glucose 215 H 10/08/24 21:20: POC Glucose 219 H 10/09/24 04:47: WBC 9.3, RBC 4.56 L, Hgb 14.1, Hct 41.3, MCV 90.6, MCH 30.9, MCHC 34.1, RDW Std Deviation 41.5, RDW Coeff of Brant 12.6, Plt Count 233, MPV 10.4, Immature Gran % (Auto) 0.600, Neut % (Auto) 71.1 H, Lymph % (Auto) 13.4 L,Sanborn % (Auto) 12.0 H, Eos % (Auto) 2.6, Baso % (Auto) 0.3, Absolute Neuts (auto)6.6, Absolute Lymphs (auto) 1.25, Nucleated RBC % 0, Sodium 141, Potassium 3.2 L, Chloride 106, Carbon Dioxide 24.0, Anion Gap 11, BUN 27 H, Creatinine 1.01, Estim Creat Clear Calc 81.72, Est GFR (MDRD) Non-Af 79, BUN/Creatinine Ratio 26.2 H, Glucose 159 H, Calcium 8.6 10/09/24 06:36: POC Glucose 154 H 10/09/24 0811 Cosigner Signature (if applicable): CC: Dr. Elana Hickman, DO~ Signed [facility]08-27-2025 [facility] Consult note Author Ar Whitman [facility] Note Date/Time October 08, 2024 4: 03pm [facility] Medical Records Department [address] [place] [address] Pharmacokinetic/Renal -Consult 10/08/24 1259 MR#: [id number] Acct: [id number] Name: AURYAMBROCIO G Rep #:[id number] : 1950 74 From: Ar Whitman PCP: Dr. Elana Hickman, DO Status:ADM IN Y [id number] Antib[facility] Management Pharmacy has been consulted to manage selected antibiotic: Vancomycin Type of Intervention Type of Consult: Follow-up Suspected Infection Suspected Infection: Skin/Soft tissue Prior Doses of Antibiotics Prior Doses of Antibiotics Received/Current Regimen: Vancomycin 1250 mg IV Q12H last given 10/08 @ 0042 Labs Labs: Sodium 142 mmol/L (133-145) 10/08/24 09:12 Potassium 3.4 mmol/L (3.3-5.1) 10/08/24 09:12 Chloride 102 mmol/L (98-108) 10/08/24 09:12 Carbon Dioxide 24.7 mmol/L (21.0-32.0) 10/08/24 09:12 Anion Gap 15 (5-15) 10/08/24 09:12 BUN 27 mg/dL (4-19) H 10/08/24 09:12 Creatinine 1.07 mg/dL (0.70-1.20) 10/08/24 09:12 Est GFR (MDRD) Non-Af 73 (>60) 10/08/24 09:12 BUN/Creatinine Ratio 25.5 RATIO (10-20) H 10/08/24 09:12 Glucose 145 mg/dL (70-99) H 10/08/24 09:12 Vancomycin Trough 15.4 ug/mL (5.0-15.0) H 10/08/24 11:36 Dosing Weight Weight used for dosin kg Estimated Creatinine Clearance Estimated Creatinine Clearance: ~ 77 Goal Trough Goal Trough: 15-20 mcg/mL Pharmacy Plan for Drug Dosing Pharmacy Plan for Drug Dosing: Vancomycin trough = 15.4, continue current dosing, trough in 2 days Pharmacy Service will continue to monitor and adjust dosing as required. Follow-Up Labs Follow-Up Labs: Trough: Vancomycin Date/Time Labs Ordered Labs to be done on [date and time ordered]: 10/10/24 @ 1130 10/08/24 1301 <Electronically signed by Ar santiago> Date _ Ar Whitman 10/08/24 1603 <Electronically signed by Ryne Steward DO> Cosigner Signature (if applicable): Date Ryne Steward DO CC: ~ Signed [facility] Work Phone: 1(309) 698-333508-26-2025 Consult note [facility] Medical Records Department [address] [place] [address] Pharmacokinetic/Renal -Consult 10/08/24 1259 MR#: [id number] Acct: [id number] Name: AMBROCIO JEFFERS Rep #:[id number] : 1950 74 From: Ar Whitman PCP: Dr. Elana Hickman DO Status:ADM IN Location: [place] [address] Consult Antibiotic Management Pharmacy has been consulted to manage selected antibiotic: Vancomycin Type of Intervention Type of Consult: Follow-up Suspected Infection Suspected Infection: Skin/Soft tissue Prior Doses of Antibiotics Prior Doses of Antibiotics Received/Current Regimen: Vancomycin 1250 mg IV Q12H last given 10/08 @ 0042 Labs Labs: Sodium 142 mmol/L (133-145) 10/08/24 09:12 Potassium 3.4 mmol/L (3.3-5.1) 10/08/24 09:12 Chloride 102 mmol/L (98-108) 10/08/24 09:12 Carbon Dioxide 24.7 mmol/L (21.0-32.0) 10/08/24 09:12 Anion Gap 15 (5-15) 10/08/24 09:12 BUN 27 mg/dL (4-19) H 10/08/24 09:12 Creatinine 1.07 mg/dL (0.70-1.20) 10/08/24 09:12 Est GFR (MDRD) Non-Af 73 (>60) 10/08/24 09:12 BUN/Creatinine Ratio 25.5 RATIO (10-20) H 10/08/24 09:12 Glucose 145 mg/dL (70-99) H 10/08/24 09:12 Vancomycin Trough 15.4 ug/mL (5.0-15.0) H 10/08/24 11:36 Dosing Weight Weight used for dosin kg Estimated Creatinine Clearance Estimated Creatinine Clearance: ~ 77 Goal Trough Goal Trough: 15-20 mcg/mL Pharmacy Plan for Drug Dosing Pharmacy Plan for Drug Dosing: Vancomycin trough = 15.4, continue current dosing, trough in 2 days Pharmacy Service will continue to monitor and adjust dosing as required. Follow-Up Labs Follow-Up Labs: Trough: Vancomycin Date/Time Labs Ordered Labs to be done on [date and time ordered]: 10/10/24 @ 1130 10/08/24 1301 r> Date _ Ar Whitman 10/08/24 1603 DO> Cosigner Signature (if applicable): Date Ryne Steward DO CC: ~ Signed [facility]08-26-2025 Progress note Author Ryne Steward [facility] Note Date/Time October 08, 2024 1: 46pm [facility] Medical Records Department [address] [place] [address] Progress Note - Hospitalist 10/08/24 0829 MR#: [id number] Acct: [id number] Name: AMBROCIO JEFFERS Rep #:[id number] : 1950 74 From: Ryne Steward DO PCP: Dr. Elana Hickman DO Status:ADM IN Location: [facility]3 [id number] Reason for Visit Chief Complaint: Right foot/ankle pain and swelling and generalized weakness Subjective Subjective No new events. Objective Data Objective Data Vital Signs: Vital Signs Temp Pulse Resp BP Pulse Ox O2 Del Method 36.9 C 70 16 146/74 H 95 Room Air 10/08/24 07:40 10/08/24 07:40 10/08/24 07:40 10/08/24 07:40 10/08/24 08:23 10/08/24 08:23 Oxygen Delivery Method Room Air Weight: 108.771 kg Body Mass Index (BMI) 33.4 Intake & Output: Intake and Output for Last 24 Hours 10/06/24 10/07/24 10/08/24 23:59 23:59 23:59 Intake Total 1690 / 1690 1650 / 1650 275 / 275 Output Total 1550 / 1550 1100 / 1100 150 / 150 Balance 140 / 140 550 / 550 125 / 125 Lab / Micro Data 10/08/24 07:30 10/08/24 09:12 Labs: Laboratory Results - last 24 hr 10/07/24 12:07: POC Glucose 173 H 10/07/24 16:32: POC Glucose 193 H 10/07/24 21:30: POC Glucose 232 H 10/08/24 07:01: POC Glucose 136 H 10/08/24 07:30: WBC 10.0, RBC 4.83, Hgb 15.1, Hct 43.8, MCV 90.7, MCH 31.3, MCHC34.5, RDW Std Deviation 41.5, RDW Coeff of Brant 12.4, Plt Count 209, MPV 10.7, Immature Gran % (Auto) 0.600, Neut % (Auto) 77.5 H, Lymph % (Auto) 9.0 L, Sanborn %(Auto) 10.9 H, Eos % (Auto) 1.6, Baso % (Auto) 0.4, Absolute Neuts (auto) 7.8 H,Absolute Lymphs (auto) 0.90, Nucleated RBC % 0, Sodium Cancelled, Potassium Cancelled, Chloride Cancelled, Carbon Dioxide Cancelled, Anion Gap Cancelled, BUN Cancelled, Creatinine Cancelled, Estim Creat Clear Calc Cancelled, Est GFR (MDRD) Non-Af Cancelled, BUN/Creatinine Ratio Cancelled, Glucose Cancelled, Calcium Cancelled Radiography Diagnostic Testing: Radiology Impression Lower Extremity MRI 10/07/24 15:00 IMPRESSION: There is prior partial amputation of the 3rd distal phalanx. There is abnormal marrow signal in the remainder of the distal phalanx of the 3rd digit with low T1, high T2, high postcontrast marrow signal, sagittal contrast image . This finding meets the criteria for osteomyelitis. There is circumferential subcutaneous edema with no organized or drainable collection. The differential includes cellulitis and venous stasis. Reading Location: [facility] Physical Exam Const alert and no apparent distress HEENT head/scalp atraumatic and moist oral mucous membranes Resp normal respiratory effort, no retractions, no use of accessory muscles and clearto auscultation bilaterally Cardio regular rate, regular rhythm, S1 normal heart sound and S2 normal heart sound GI normal to inspection, nondistended, normoactive bowel sounds, soft to palpation,non-tender and non-distended Extremity normal to inspection Extremity Narrative: Right lower extremity edema. Neuro Sensorium / Orientation: awake and alert Assessment & Plan Assessment/Plan (1) Cellulitis of leg, right: PLAN: On IV vancomycin Began today after debridement of his left third toe. Concerned that the third toe could be the nidus of the infection. MRI showed osteomyelitis of right 3rd toe. Consult podiatry for definitive treatment and infectious disease for long-term antibiotics. (2) Debility: PLAN: complicated by cellulitis and Parkinson's disease Plan for SNF PLAN: Plan Chronic conditions: * DM2: glargine and SSI. resume empagliflozin as outpt. * parkinson's disease: carbidopa/levodopa * BPH: flomax VTE prophylaxis: LMWH. Discussed with patient's at bedside. Charges/Coding Visit Charges Inpatient E&M: 01088 Subs Hosp L2 10/08/24 1346 <Electronically signed by Ryne Steward DO> Cosigner Signature (if applicable): CC: ~ Signed [facility] Work Phone: 1(286) 118-183808-26-2025 Progress note [facility] Medical Records Department [address] [place] [address] Progress Note - Hospitalist 10/08/24 0829 MR#: [id number] Acct: [id number] Name: AMBROCIO JEFFERS Rep #:[id number] : 1950 74 From: Ryne Steward DO PCP: Dr. Elana Hickman, DO Status:ADM IN Location: [place] [address] Reason for Visit Chief Complaint: Right foot/ankle pain and swelling and generalized weakness Subjective Subjective No new events. Objective Data Objective Data Vital Signs: Vital Signs Temp Pulse Resp BP Pulse Ox O2 Del Method 36.9 C 70 16 146/74 H 95 Room Air 10/08/24 07:40 10/08/24 07:40 10/08/24 07:40 10/08/24 07:40 10/08/24 08:23 10/08/24 08:23 Oxygen Delivery Method Room Air Weight: 108.771 kg Body Mass Index (BMI) 33.4 Intake & Output: Intake and Output for Last 24 Hours 10/06/24 10/07/24 10/08/24 23:59 23:59 23:59 Intake Total 1690 / 1690 1650 / 1650 275 / 275 Output Total 1550 / 1550 1100 / 1100 150 / 150 Balance 140 / 140 550 / 550 125 / 125 Lab / Micro Data 10/08/24 07:30 10/08/24 09:12 Labs: Laboratory Results - last 24 hr 10/07/24 12:07: POC Glucose 173 H 10/07/24 16:32: POC Glucose 193 H 10/07/24 21:30: POC Glucose 232 H 10/08/24 07:01: POC Glucose 136 H 10/08/24 07:30: WBC 10.0, RBC 4.83, Hgb 15.1, Hct 43.8, MCV 90.7, MCH 31.3, MCHC34.5, RDW Std Deviation 41.5, RDW Coeff of Brant 12.4, Plt Count 209, MPV 10.7, Immature Gran % (Auto) 0.600, Neut % (Auto) 77.5 H, Lymph % (Auto) 9.0 L, Sanborn %(Auto) 10.9 H, Eos % (Auto) 1.6, Baso % (Auto) 0.4, Absolute Neuts (auto) 7.8 H,Absolute Lymphs (auto) 0.90, Nucleated RBC % 0, Sodium Cancelled, Potassium Cancelled, Chloride Cancelled, Carbon Dioxide Cancelled, Anion Gap Cancelled, BUN Cancelled, Creatinine Cancelled, Estim Creat Clear Calc Cancelled, Est GFR (MDRD) Non-Af Cancelled, BUN/Creatinine Ratio Cancelled, Glucose Cancelled, Calcium Cancelled Radiography Diagnostic Testing: Radiology Impression Lower Extremity MRI 10/07/24 15:00 IMPRESSION: There is prior partial amputation of the 3rd distal phalanx. There is abnormal marrow signal in the remainder of the distal phalanx of the 3rd digit with low T1, high T2, high postcontrast marrow signal, sagittal contrast image . This finding meets the criteria for osteomyelitis. There is circumferential subcutaneous edema with no organized or drainable collection. The differential includes cellulitis and venous stasis. Reading Location: [facility] Physical Exam Const alert and no apparent distress HEENT head/scalp atraumatic and moist oral mucous membranes Resp normal respiratory effort, no retractions, no use of accessory muscles and clearto auscultation bilaterally Cardio regular rate, regular rhythm, S1 normal heart sound and S2 normal heart sound GI normal to inspection, nondistended, normoactive bowel sounds, soft to palpation,non-tender and non-distended Extremity normal to inspection Extremity Narrative: Right lower extremity edema. Neuro Sensorium / Orientation: awake and alert Assessment & Plan Assessment/Plan (1) Cellulitis of leg, right: PLAN: On IV vancomycin Began today after debridement of his left third toe. Concerned that the third toe could be the nidus of the infection. MRI showed osteomyelitis of right 3rd toe. Consult podiatry for definitive treatment and infectious disease for long-term antibiotics. (2) Debility: PLAN: complicated by cellulitis and Parkinson's disease Plan for SNF PLAN: Plan Chronic conditions: * DM2: glargine and SSI. resume empagliflozin as outpt. * parkinson's disease: carbidopa/levodopa * BPH: flomax VTE prophylaxis: LMWH. Discussed with patient's at bedside. Charges/Coding Visit Charges Inpatient E&M: 34590 Subs Hosp L2 10/08/24 1346 Cosigner Signature (if applicable): CC: ~ Signed [facility]08-25-2025 Progress note Author Ryne Steward [facility] Note Date/Time October 07, 2024 1: 51pm [facility] Medical Records Department [address] [place] [address] Progress Note - Hospitalist 10/07/24 0828 MR#: [id number] Acct: [id number] Name: AMBROCIO JEFFERS Rep #:[id number] : 1950 74 From: Ryne Steward DO PCP: Dr. Elana Hickman DO Status:ADM IN Location: [facility] CW666-1 Reason for Visit Chief Complaint: Right foot/ankle pain and swelling and generalized weakness Subjective Subjective Still with erythema. Objective Data Objective Data Vital Signs: Vital Signs Temp Pulse Resp BP Pulse Ox O2 Del Method 36.9 C 68 20 H 144/81 H 100 Room Air 10/07/24 06:48 10/07/24 06:48 10/07/24 06:48 10/07/24 06:48 10/07/24 06:48 10/07/24 06:48 Oxygen Delivery Method Room Air Weight: 108.771 kg Body Mass Index (BMI) 33.4 Intake & Output: Intake and Output for Last 24 Hours 10/05/24 10/06/24 10/07/24 23:59 23:59 23:59 Intake Total 1535 / 1535 1690 / 1690 275 / 275 Output Total 1550 / 1550 Balance 1535 / 1535 140 / 140 275 / 275 Lab / Micro Data 10/07/24 04:46 10/07/24 04:46 Labs: Laboratory Results - last 24 hr 10/06/24 11:38: POC Glucose 193 H 10/06/24 16:29: POC Glucose 221 H 10/06/24 22:25: POC Glucose 229 H 10/06/24 23:50: Vancomycin Trough 12.0 10/07/24 04:46: WBC 8.6, RBC 5.08, Hgb 15.7, Hct 47.2, MCV 92.9, MCH 30.9, MCHC 33.3, RDW Std Deviation 42.7, RDW Coeff of Brant 12.5, Plt Count 179, MPV 10.9, Immature Gran % (Auto) 0.500, Neut % (Auto) 73.4 H, Lymph % (Auto) 10.5 L, Sanborn % (Auto) 12.6 H, Eos % (Auto) 2.3, Baso % (Auto) 0.7, Absolute Neuts (auto) 6.3,Absolute Lymphs (auto) 0.90, Nucleated RBC % 0, Sodium 140, Potassium 3.4, Chloride 103, Carbon Dioxide 22.0, Anion Gap 14, BUN 28 H, Creatinine 1.12, Estim Creat Clear Calc 73.69, Est GFR (MDRD) Non-Af 69, BUN/Creatinine Ratio 24.6 H, Glucose 102 H, Calcium 9.0 Radiography Diagnostic Testing: Radiology Impression Shoulder X-Ray 10/06/24 11:45 IMPRESSION: Negative left shoulder Reading Location: [facility] Physical Exam Const alert and no apparent distress HEENT head/scalp atraumatic and moist oral mucous membranes Resp normal respiratory effort and no retractions Extremity Extremity Narrative: Superficial ulceration of the distal left third toe. Erythema from medial rightfoot to ankle. Overall the erythema has significantly withdrawn from the line of demarcation. Neuro Sensorium / Orientation: awake and alert Psych affect normal Assessment & Plan Assessment/Plan (1) Cellulitis of leg, right: PLAN: On IV vancomycin Began today after debridement of his left third toe. Concerned that the third toe could be the nidus of the infection. Will check an MRI with and without contrast to evaluate for osteomyelitis. If osteomyelitis is present then we will need to consult podiatry. (2) Debility: PLAN: complicated by cellulitis and Parkinson's disease PT OT evaluate and treat. PLAN: Plan Chronic conditions: * DM2: glargine and SSI. resume empagliflozin as outpt. * parkinson's disease: carbidopa/levodopa * BPH: flomax VTE prophylaxis: LMWH. Discussed with the patient's at bedside. Charges/Coding Visit Charges Inpatient E&M: 34759 Subs Hosp L2 10/07/24 1351 <Electronically signed by Ryne Steward DO> Cosigner Signature (if applicable): CC: ~ Signed [facility] Work Phone: 1(192) 608-180708-25-2025 Progress note [facility] Medical Records Department [address] [place] [address] Progress Note - Hospitalist 10/07/24827 MR#: [id number] Acct: [id number] Name: AMBROCIO JEFFERS Rep #:[id number] : 1950 74 From: Ryne Steward DO PCP: Dr. Elana Hickman, DO Status:ADM IN Location: [facility] [id number] Reason for Visit Chief Complaint: Right foot/ankle pain and swelling and generalized weakness Subjective Subjective Still with erythema. Objective Data Objective Data Vital Signs: Vital Signs Temp Pulse Resp BP Pulse Ox O2 Del Method 36.9 C 68 20 H 144/81 H 100 Room Air 10/07/24 06:48 10/07/24 06:48 10/07/24 06:48 10/07/24 06:48 10/07/24 06:48 10/07/24 06:48 Oxygen Delivery Method Room Air Weight: 108.771 kg Body Mass Index (BMI) 33.4 Intake & Output: Intake and Output for Last 24 Hours 10/05/24 10/06/24 10/07/24 23:59 23:59 23:59 Intake Total 1535 / 1535 1690 / 1690 275 / 275 Output Total 1550 / 1550 Balance 1535 / 1535 140 / 140 275 / 275 Lab / Micro Data 10/07/24 04:46 10/07/24 04:46 Labs: Laboratory Results - last 24 hr 10/06/24 11:38: POC Glucose 193 H 10/06/24 16:29: POC Glucose 221 H 10/06/24 22:25: POC Glucose 229 H 10/06/24 23:50: Vancomycin Trough 12.0 10/07/24 04:46: WBC 8.6, RBC 5.08, Hgb 15.7, Hct 47.2, MCV 92.9, MCH 30.9, MCHC 33.3, RDW Std Deviation 42.7, RDW Coeff of Brant 12.5, Plt Count 179, MPV 10.9, Immature Gran % (Auto) 0.500, Neut % (Auto) 73.4 H, Lymph % (Auto) 10.5 L, Sanborn % (Auto) 12.6 H, Eos % (Auto) 2.3, Baso % (Auto) 0.7, Absolute Neuts (auto) 6.3,Absolute Lymphs (auto) 0.90, Nucleated RBC % 0, Sodium 140, Potassium 3.4, Chloride 103, Carbon Dioxide 22.0, Anion Gap 14, BUN 28 H, Creatinine 1.12, Estim Creat Clear Calc 73.69, Est GFR (MDRD) Non-Af 69, BUN/Creatinine Ratio 24.6 H, Glucose 102 H, Calcium 9.0 Radiography Diagnostic Testing: Radiology Impression Shoulder X-Ray 10/06/24 11:45 IMPRESSION: Negative left shoulder Reading Location: [facility] Physical Exam Const alert and no apparent distress HEENT head/scalp atraumatic and moist oral mucous membranes Resp normal respiratory effort and no retractions Extremity Extremity Narrative: Superficial ulceration of the distal left third toe. Erythema from medial rightfoot to ankle. Overall the erythema has significantly withdrawn from the line of demarcation. Neuro Sensorium / Orientation: awake and alert Psych affect normal Assessment & Plan Assessment/Plan (1) Cellulitis of leg, right: PLAN: On IV vancomycin Began today after debridement of his left third toe. Concerned that the third toe could be the nidus of the infection. Will check an MRI with and without contrast to evaluate for osteomyelitis. If osteomyelitis is present then we will need to consult podiatry. (2) Debility: PLAN: complicated by cellulitis and Parkinson's disease PT OT evaluate and treat. PLAN: Plan Chronic conditions: * DM2: glargine and SSI. resume empagliflozin as outpt. * parkinson's disease: carbidopa/levodopa * BPH: flomax VTE prophylaxis: LMWH. Discussed with the patient's at bedside. Charges/Coding Visit Charges Inpatient E&M: 94278 Subs Hosp L2 10/07/24 1351 Cosigner Signature (if applicable): CC: ~ Signed [facility]08-25-2025 Consult note Author Harshad Lott [facility] Note Date/Time October 07, 2024 1: 02am [facility] Medical Records Department [address] [place] [address] Pharmacokinetic/Renal -Consult 10/07/24 0101 MR#: [id number] Acct: [id number] Name: AMBROCIO JEFFERS Rep #:[id number] : 1950 74 From: Harshad Dias od PCP: Dr. Elana Hickman, DO Status:ADM IN Y [id number] Pharmacy has been consulted to manage selected antibiotic: Vancomycin Type of Intervention Type of Consult: Follow-up Labs Labs: Sodium 138 mmol/L (133-145) 10/06/24 04:45 Potassium 4.0 mmol/L (3.3-5.1) 10/06/24 04:45 Chloride 102 mmol/L (98-108) 10/06/24 04:45 Carbon Dioxide 20.6 mmol/L (21.0-32.0) L 10/06/24 04:45 Anion Gap 16 (5-15) H 10/06/24 04:45 BUN 29 mg/dL (4-19) H 10/06/24 04:45 Creatinine 1.17 mg/dL (0.70-1.20) 10/06/24 04:45 Est GFR (MDRD) Non-Af 66 (>60) 10/06/24 04:45 BUN/Creatinine Ratio 24.6 RATIO (10-20) H 10/06/24 04:45 Glucose 54 mg/dL (70-99) L 10/06/24 04:45 Vancomycin Trough 12.0 ug/mL (5.0-15.0) 10/06/24 23:50 Goal Trough Goal Trough: 15-20 mcg/mL Pharmacy Plan for Drug Dosing Pharmacy Plan for Drug Dosing: Pharmacy Service will continue to monitor and adjust dosing as required. TROUGH 12 @ 11.5 HOURS. INCREASE TO 1250MG Q12H AND DRAW TROUGH PRIOR TO 4TH DOSE Follow-Up Labs Follow-Up Labs: Trough: Vancomycin Date/Time Labs Ordered Labs to be done on [date and time ordered]: 10/08 @ 1130 10/07/24101 <Electronically signed by Harshad piedra> Date _ Harshad Lott Coskellieer Signature (if applicable): Date CC: ~ Signed [facility] Work Phone: 1(468) 505-730408-25-2025 Consult note [facility] Medical Records Department [address] [place] [address] Pharmacokinetic/Renal -Consult 10/07/24100 MR#: [id number] Acct: [id number] Name: AMBROCIO JEFFERS Rep #:[id number] : 1950 74 From: Harshad Dias od PCP: Dr. Elana Hickman, DO Status:ADM IN Y Location: MA3 [id number] Consult Antibiotic Management Pharmacy has been consulted to manage selected antibiotic: Vancomycin Type of Intervention Type of Consult: Follow-up Labs Labs: Sodium 138 mmol/L (133-145) 10/06/24 04:45 Potassium 4.0 mmol/L (3.3-5.1) 10/06/24 04:45 Chloride 102 mmol/L (98-108) 10/06/24 04:45 Carbon Dioxide 20.6 mmol/L (21.0-32.0) L 10/06/24 04:45 Anion Gap 16 (5-15) H 10/06/24 04:45 BUN 29 mg/dL (4-19) H 10/06/24 04:45 Creatinine 1.17 mg/dL (0.70-1.20) 10/06/24 04:45 Est GFR (MDRD) Non-Af 66 (>60) 10/06/24 04:45 BUN/Creatinine Ratio 24.6 RATIO (10-20) H 10/06/24 04:45 Glucose 54 mg/dL (70-99) L 10/06/24 04:45 Vancomycin Trough 12.0 ug/mL (5.0-15.0) 10/06/24 23:50 Goal Trough Goal Trough: 15-20 mcg/mL Pharmacy Plan for Drug Dosing Pharmacy Plan for Drug Dosing: Pharmacy Service will continue to monitor and adjust dosing as required. TROUGH 12 @ 11.5 HOURS. INCREASE TO 1250MG Q12H AND DRAW TROUGH PRIOR TO 4TH DOSE Follow-Up Labs Follow-Up Labs: Trough: Vancomycin Date/Time Labs Ordered Labs to be done on [date and time ordered]: 10/08 @ 1130 10/07/24 0102 lood> Date _ Harshad Lott Cosigner Signature (if applicable): Date CC: ~ Signed [facility]08-24-2025 Consult note Author Sigifredo Zaragoza [facility] Note Date/Time October 06, 2024 9: 17pm [facility] Medical Records Department [address] [place] [address] Pharmacokinetic/Renal -Consult 10/05/24 1609 MR#: [id number] Acct: [id number] Name: AMBROCIO JEFFERS Rep #:[id number] : 1950 74 From: Sigifredo lemus PCP: Dr. Elana Hickman, DO Status:ADM IN Location: [place] [address] Consult Antibiotic Management Pharmacy has been consulted to manage selected antibiotic: Vancomycin Type of Intervention Type of Consult: New start Suspected Infection Suspected Infection: Skin/Soft tissue Prior Doses of Antibiotics Prior Doses of Antibiotics Received/Current Regimen: received vanc 1750mg IV x1 in E.R. starting at 12:28 today Labs Labs: Sodium 137 mmol/L (133-145) 10/05/24 12:30 Potassium 3.7 mmol/L (3.3-5.1) 10/05/24 12:30 Chloride 96 mmol/L (98-108) L 10/05/24 12:30 Carbon Dioxide 25.8 mmol/L (21.0-32.0) 10/05/24 12:30 Anion Gap 16 (5-15) H 10/05/24 12:30 BUN 36 mg/dL (4-19) H 10/05/24 12:30 Creatinine 1.57 mg/dL (0.70-1.20) H 10/05/24 12:30 Est GFR (MDRD) Non-Af 46 (>60) L 10/05/24 12:30 BUN/Creatinine Ratio 22.8 RATIO (10-20) H 10/05/24 12:30 Glucose 235 mg/dL (70-99) H 10/05/24 12:30 Dosing Weight Weight used for dosin.8 kg Estimated Creatinine Clearance Estimated Creatinine Clearance: 54 ml/min Goal Trough Goal Trough: 15-20 mcg/mL Pharmacy Plan for Drug Dosing Pharmacy Plan for Drug Dosing: Starting 12 hours after the E.R. dose, continue with 1000mg IV q12h per [facility] dosing protocol. Check a trough before the 4th overall dose. Pharmacy Service will continue to monitor and adjust dosing as required. Follow-Up Labs Follow-Up Labs: Trough: Vancomycin Date/Time Labs Ordered Labs to be done on [date and time ordered]: 10/06/24 23:30 10/05/24 1613 <Electronically signed by Sigifredo Saenz erg> Date _ Sigifredo Zaragoza 10/06/24 2117 <Electronically signed by Stephen raymundo DO> Cosigner Signature (if applicable): Date Stephen Deal DO CC: ~ Signed [facility] Work Phone: 1(385) 736-520108-24-2025 Consult note [facility] Medical Records Department [address] [place] [address] Pharmacokinetic/Renal -Consult 10/05/24 1609 MR#: [id number] Acct: [id number] Name: AMBROCIO JEFFERS Rep #:[id number] : 1950 74 From: Sigifredo lemus PCP: Dr. Elana Hickman DO Status:ADM IN Location: [place] [address] Consult Antibiotic Management Pharmacy has been consulted to manage selected antibiotic: Vancomycin Type of Intervention Type of Consult: New start Suspected Infection Suspected Infection: Skin/Soft tissue Prior Doses of Antibiotics Prior Doses of Antibiotics Received/Current Regimen: received vanc 1750mg IV x1 in E.R. starting at 12:28 today Labs Labs: Sodium 137 mmol/L (133-145) 10/05/24 12:30 Potassium 3.7 mmol/L (3.3-5.1) 10/05/24 12:30 Chloride 96 mmol/L (98-108) L 10/05/24 12:30 Carbon Dioxide 25.8 mmol/L (21.0-32.0) 10/05/24 12:30 Anion Gap 16 (5-15) H 10/05/24 12:30 BUN 36 mg/dL (4-19) H 10/05/24 12:30 Creatinine 1.57 mg/dL (0.70-1.20) H 10/05/24 12:30 Est GFR (MDRD) Non-Af 46 (>60) L 10/05/24 12:30 BUN/Creatinine Ratio 22.8 RATIO (10-20) H 10/05/24 12:30 Glucose 235 mg/dL (70-99) H 10/05/24 12:30 Dosing Weight Weight used for dosin.8 kg Estimated Creatinine Clearance Estimated Creatinine Clearance: 54 ml/min Goal Trough Goal Trough: 15-20 mcg/mL Pharmacy Plan for Drug Dosing Pharmacy Plan for Drug Dosing: Starting 12 hours after the E.R. dose, continue with 1000mg IV q12h per [facility] dosing protocol. Check a trough before the 4th overall dose. Pharmacy Service will continue to monitor and adjust dosing as required. Follow-Up Labs Follow-Up Labs: Trough: Vancomycin Date/Time Labs Ordered Labs to be done on [date and time ordered]: 10/06/24 23:30 10/05/24 1613 erg> Date _ Sigifredo Zaragoza 10/06/247 customer service teller DO> Cosigner Signature (if applicable): Date Stephen Deal DO CC: ~ Signed [facility]08-24-2025 Progress note Author Silvia [facility] Note Date/Time October 06, 2024 1: [address] [place] [address] [facility] System Medical Records Department [address] [place] [address] Progress Note 10/06/24 1107 MR#: [id number] Acct: [id number] Name: AMBROCIO JEFFERS Rep #:[id number] : 1950 74 From: Silvia Son MD PCP: Dr. Elana Hickman, DO Status:ADM IN Location: MS3 MH054-4 Subjective Subjective Patient seen and examined with his nurse by his bedside. He was admitted with acomplaint of right foot and ankle pain as well as swelling and generalized weakness. He says the symptoms are getting better today. He denies any pain inhis right lower extremity. He does still have some redness. He also complains of LUE shoulder pain. Review systems otherwise negative. Objective Data Objective Data Vital Signs: Vital Signs Temp Pulse Resp BP Pulse Ox O2 Del Method 97.7 F L 73 20 H 134/64 H 97 Room Air 10/06/24 08:54 10/06/24 08:54 10/06/24 08:54 10/06/24 08:54 10/06/24 08:54 10/06/24 08:54 Oxygen Delivery Method Room Air Weight: 239 lb 12.8 oz Body Mass Index (BMI) 33.4 Intake & Output: Intake and Output for Last 24 Hours 10/04/24 10/05/24 10/06/24 23:59 23:59 23:59 Intake Total 1535 / 1535 670 / 670 Output Total 200 / 200 Balance 1535 / 1535 470 / 470 Lab / Micro Data 10/06/24 04:45 10/06/24 04:45 Labs: Laboratory Results - last 24 hr 10/05/24 12:30: WBC 10.0, RBC 4.97, Hgb 15.5, Hct 45.3, MCV 91.1, MCH 31.2, MCHC34.2, RDW Std Deviation 42.4, RDW Coeff of Brant 12.7, Plt Count 170, MPV 11.2, Immature Gran % (Auto) 0.600, Neut % (Auto) 81.8 H, Lymph % (Auto) 7.1 L, Sanborn %(Auto) 9.6, Eos % (Auto) 0.7, Baso % (Auto) 0.2, Absolute Neuts (auto) 8.1 H, Absolute Lymphs (auto) 0.71 L, Nucleated RBC % 0, ESR 37 H, Sodium 137, Potassium3.7, Chloride 96 L, Carbon Dioxide 25.8, Anion Gap 16 H, BUN 36 H, Creatinine 1.57 H, Estim Creat Clear Calc 53.99, Est GFR (MDRD) Non-Af 46 L, BUN/CreatinineRatio 22.8 H, Glucose 235 H, Hemoglobin A1c 8.7 H, Calcium 9.4, C-React Prot ExtRange 251.00 H 10/05/24 20:16: POC Glucose 180 H 10/06/24 04:45: WBC 9.8, RBC 4.84, Hgb 14.9, Hct 46.7, MCV 96.5 H D, MCH 30.8, MCHC 31.9 L D, RDW Std Deviation 46.0 H, RDW Coeff of Brant 12.8, Plt Count 166, MPV 11.6, Sodium 138, Potassium 4.0, Chloride 102, Carbon Dioxide 20.6 L, Anion Gap 16 H, BUN 29 H, Creatinine 1.17, Estim Creat Clear Calc 70.54, Est GFR (MDRD) Non-Af 66, BUN/Creatinine Ratio 24.6 H, Glucose 54 L, Calcium 8.9 10/06/24 07:01: POC Glucose 73 L Radiography Diagnostic Testing: Radiology Impression Ankle X-Ray 10/05/24 12:01 IMPRESSION: No acute osseous abnormalities. Reading Location: [facility] Foot X-Ray 10/05/24 12:01 IMPRESSION: No acute osseous abnormalities. Reading Location: [facility] Physical Exam Const alert, oriented x3 and no apparent distress Constitutional Narrative: frail, weak. General Appearance: cooperative HEENT normocephalic, head/scalp atraumatic and moist oral mucous membranes Eyes EOMs intact bilaterally Neck supple and no JVD Lymph Lymphatic: no lymphedema noted Resp Resp Narrative: mildly diminished breath sounds bibasally, no wheezes or crackles.On room air. Cardio regular rate, regular rhythm, S1 normal heart sound, S2 normal heart sound and no murmurs GI normal to inspection, nondistended, normoactive bowel sounds, soft to palpation,non-tender and non-distended Extremity Extremity Narrative: RLE has mild redness and differential warmth extending from ankle to midshin. Has a chronic left 3rd toe ulcer. Skin Skin Narrative: as under extremities. Neuro CN's II-XII intact bilaterally and no focal motor deficits Motor Exam: general weakness Psych thought process normal, cooperative and affect normal Appearance: appropriate Assessment & Plan Assessment/Plan (1) Cellulitis of leg, right: PLAN: Plan #RLE cellulitis * failed outptient treatment. Has chronic right third toe wound and debridement recently. Follows with podiatry for this * He had debridement done in the office of podiatry on 10/01/2024 and subsequently developed a right foot redness and swelling antibiotics. CRP is elevated at 251 and ESR was 37. * X-ray of the right foot and ankle were unremarkable with minimal concern for osteomyelitis. * On IV vancomycin. Redness has started improving. #Debility and weakness in the setting of Parkinson's disease * On Sinemet and propranolol. PT OT on board. Fall precautions. He lives at home with . Disposition will be based on therapy evaluation. #Anion gap metabolic acidosis: Bicarb is 20.6. Anion gap is 16 and was 16 yesterday 2. Etiology is not very clear as creatinine is down to 1.17 today from 1.57 yesterday. #CKD stage IIIa: Creatinine at baseline. Will monitor. #Type 2 diabetes mellitus with neuropathy: Empagliflozin and glimepiride on hold. On Lantus 15 units bid. Insulin sliding scale. Accu-Cheks ACHS. #Hypertension: On lisinopril and hydrochlorothiazide. IV hydralazine as needed #Hyperlipidemia: On statin #GERD: On PPI #BPH with obstructive symptoms: On Flomax DVT prophylaxis: Lovenox Charges/Coding Visit Charges Inpatient E&M: 59302 Subs Hosp L2 10/06/24 1331 <Electronically signed by Silvia Son MD> Silvia Son MD Cosigner Signature (if applicable): CC: ~ Signed [facility] Work Phone: 1([phone]) 613-442008-24-2025 Progress note [facility] Medical Records Department [address] [place] [address] Progress Note 10/06/24 1107 MR#: [id number] Acct: [id number] Name: AMBROCIO JEFFERS Rep #:[id number] : 1950 74 From: Silvia Son MD PCP: Dr. Elana Halko, DO Status:ADM IN Location: MS3 [id number] Subjective Subjective Patient seen and examined with his nurse by his bedside. He was admitted with acomplaint of right foot and ankle pain as well as swelling and generalized weakness. He says the symptoms are getting better today. He denies any pain inhis right lower extremity. He does still have some redness. He alsocomplains of LUE shoulder pain. Review systems otherwise negative. Objective Data Objective Data Vital Signs: Vital Signs Temp Pulse Resp BP Pulse Ox O2 Del Method 97.7 F L 73 20 H 134/64 H 97 Room Air 10/06/24 08:54 10/06/24 08:54 10/06/24 08:54 10/06/24 08:54 10/06/24 08:54 10/06/24 08:54 Oxygen Delivery Method Room Air Weight: 239 lb 12.8 oz Body Mass Index (BMI) 33.4 Intake & Output: Intake and Output for Last 24 Hours 10/04/24 10/05/24 10/06/24 23:59 23:59 23:59 Intake Total 1535 / 1535 670 / 670 Output Total 200 / 200 Balance 1535 / 1535 470 / 470 Lab / Micro Data 10/06/24 04:45 10/06/24 04:45 Labs: Laboratory Results - last 24 hr 10/05/24 12:30: WBC 10.0, RBC 4.97, Hgb 15.5, Hct 45.3, MCV 91.1, MCH 31.2, MCHC34.2, RDW Std Deviation 42.4, RDW Coeff of Brant 12.7, Plt Count 170, MPV 11.2, Immature Gran % (Auto) 0.600, Neut % (Auto) 81.8 H, Lymph % (Auto) 7.1 L, Sanborn %(Auto) 9.6, Eos % (Auto) 0.7, Baso % (Auto) 0.2, Absolute Neuts (auto) 8.1 H, Absolute Lymphs (auto) 0.71 L, Nucleated RBC % 0, ESR 37 H, Sodium 137, Potassium3.7, Chloride 96 L, Carbon Dioxide 25.8, Anion Gap 16 H, BUN 36 H, Creatinine 1.57 H, Estim Creat Clear Calc 53.99, Est GFR (MDRD) Non-Af 46 L, BUN/CreatinineRatio 22.8 H, Glucose 235 H, Hemoglobin A1c 8.7 H, Calcium 9.4, C- React Prot ExtRange 251.00 H 10/05/24 20:16: POC Glucose 180 H 10/06/24 04:45: WBC 9.8, RBC 4.84, Hgb 14.9, Hct 46.7, MCV 96.5 H D, MCH 30.8, MCHC 31.9 L D, RDW Std Deviation 46.0 H, RDW Coeff of Brant 12.8, Plt Count 166, MPV 11.6, Sodium 138, Potassium 4.0, Chloride 102, Carbon Dioxide 20.6 L, Anion Gap 16 H, BUN 29 H, Creatinine 1.17, Estim Creat Clear Calc 70.54, Est GFR (MDRD) Non-Af 66, BUN/Creatinine Ratio 24.6 H, Glucose 54 L, Calcium 8.9 10/06/24 07:01: POC Glucose 73 L Radiography Diagnostic Testing: Radiology Impression Ankle X-Ray 10/05/24 12:01 IMPRESSION: No acute osseous abnormalities. Reading Location: [facility] Foot X-Ray 10/05/24 12:01 IMPRESSION: No acute osseous abnormalities. Reading Location: [facility] Physical Exam Const alert, oriented x3 and no apparent distress Constitutional Narrative: frail, weak. General Appearance: cooperative HEENT normocephalic, head/scalp atraumatic and moist oral mucous membranes Eyes EOMs intact bilaterally Neck supple and no JVD Lymph Lymphatic: no lymphedema noted Resp Resp Narrative: mildly diminished breath sounds bibasally, no wheezes or crackles.On room air. Cardio regular rate, regular rhythm, S1 normal heart sound, S2 normal heart sound and no murmurs GI normal to inspection, nondistended, normoactive bowel sounds, soft to palpation,non-tender and non-distended Extremity Extremity Narrative: RLE has mild redness and differential warmth extending from ankle to midshin. Has a chronic left 3rd toe ulcer. Skin Skin Narrative: as under extremities. Neuro CN's II-XII intact bilaterally and no focal motor deficits Motor Exam: general weakness Psych thought process normal, cooperative and affect normal Appearance: appropriate Assessment & Plan Assessment/Plan (1) Cellulitis of leg, right: PLAN: Plan #RLE cellulitis * failed outptient treatment. Has chronic right third toe wound and debridement recently. Follows with podiatry for this * He had debridement done in the office of podiatry on 10/01/2024 and subsequently developed a rightfoot redness and swelling antibiotics. CRP is elevated at 251 and ESR was 37. * X-ray of the right foot and ankle were unremarkable with minimal concern for osteomyelitis. * On IV vancomycin. Redness has started improving. #Debility and weakness in the setting of Parkinson's disease * On Sinemet and propranolol. PT OT on board. Fall precautions. He lives at home with . Disposition will be based on therapy evaluation. #Anion gap metabolic acidosis: Bicarb is 20.6. Anion gap is 16 and was 16 yesterday 2. Etiology is not very clear as creatinine is down to 1.17 today from 1.57 yesterday. #CKD stage IIIa: Creatinine at baseline. Will monitor. #Type 2 diabetes mellitus with neuropathy: Empagliflozin and glimepiride on hold. On Lantus 15 units bid. Insulin sliding scale. Accu-Cheks ACHS. #Hypertension: On lisinopril and hydrochlorothiazide. IV hydralazine as needed #Hyperlipidemia: On statin #GERD: On PPI #BPH with obstructive symptoms: On Flomax DVT prophylaxis: Lovenox Charges/Coding Visit Charges Inpatient E&M: 76933 Subs Hosp L2 10/06/24 1331 Silvia Son MD Cosigner Signature (if applicable): CC: ~ Signed [facility]08-24-2025 Radiology Diagnostic study note [facility] Imaging Services [address] [place] [address] Shoulder min 2 Views MR#: [id number] Acct: [id number] Name: AMBROCIO JEFFERS Rep #: [id number] : 1950 M 74 From: Linnea Up MD PCP: Dr. Elana Hickman, DO Status: ADM IN Study:Shoulder min 2 Views Date of Exam: 10/06/24 Exam# [id number] Ordering Dr: Kasie Son MD PROCEDURE: SHOULDER MIN 2 VIEWS 10/06/2024 REASON FOR EXAM: PAIN TECHNIQUE: SHOULDER MIN 2 VIEWS Laterality: Left FINDINGS: Four views of the left shoulder demonstrate no fracture or dislocation RAD/Shoulder min 2 Views IMPRESSION: Negative left shoulder [facility] CC: Dr. Elana Hickman DO; Dr. Silvia Son MD ~ [place]: Signed [facility]08-23-2025 History and physical note Author Stephen Deal [facility] Note Date/Time October 05, 2024 3: 36pm [facility] Medical Records Department [address] [place] [address] H&P Exam - Hospitalist 10/05/24 1428 MR#: [id number] Acct: [id number] Name: AMBROCIO JEFFERS Rep #:[id number] : 1950 74 From: Stephen navarrete DO PCP: Dr. Elana Hickman DO Status:ADM IN Location: [facility] FM990-8 HPI - General General Date of Admission: 10/05/24 Date of Service: 10/05/24 Chief Complaint: Right foot/ankle pain and swelling and generalized weakness HPI Narrative AMBROCIO JEFFERS, is a 74 M who presented to [facility] ED on 10/05/2024 with worsening right foot/ankle pain and swelling as well as generalized weakness. Medical history is significant for Parkinson's disease, type 2 diabetes with neuropathy and hypertension. Patient has a chronic right third toe wound and follows with Dr. Morgan with podiatry for this. He had that toe debrided in the office on Sunday 10/01. A few days ago he noticed redness in the foot and extending up into the ankle. Called the podiatry office who started him on p.o. doxycycline. However, he has had worsening weakness since then and had a small fall at home, so he came to the ED today for further evaluation. In the ED he was normotensive, afebrile and stable on room air at rest. No leukocytosis noted. However, inflammatory markers were significantly elevated with CRP 251, ESR 37. Foot and ankle x-ray both showed no concerning findings, and per ED physician on exam there was no concern for subcutaneous emphysema or necrotizing fasciitis. Given his worsening infection and weakness,hospitalist was contacted for admission. I saw the patient at bedside in the ED, was present. Patient was fatigued appearing but otherwise sitting backcomfortably in bed and in no acute distress. He was answering questions with short appropriate responses. Reported only mild right foot and ankle discomfortcurrently. Denied any fevers or chills. Does note that he feels weaker than his normal. No other acute concerns at this time. Will be admitted for furthermanagement. [facility] Medical History Parkinson disease Hypertension Diabetes Home Medications ?Medication ?Instructions ?Recorded ?Last Taken ?Type carbidopa 25 mg-levodopa 250 mg 2 tab PO BID 03/10/20 Unknown History tablet glimepiride 4 mg tablet 4 mg PO DAILY 03/10/20 Unkno wn History lisinopril 20 1 tab PO DAILY 03/10/20 Unkn own History mg-hydrochlorothiazide 25 mg tablet tamsulosin 0.4 mg capsule 0.4 mg PO Q24H 03/10/20 Unkn own History cholecalciferol (vitamin D3) 50 50 mcg PO DAILY Unknown History mcg (2,000 unit) tablet empagliflozin 25 mg tablet 25 mg PO DAILY 11/09/22 Unk nown History (Jardiance) gabapentin 100 mg capsule 100 mg PO Q8H 11/09/22 Unkno wn History pravastatin 20 mg tablet 20 mg PO DAILY 11/09/22 Unkn own History cyclobenzaprine 10 mg tablet 10 mg PO TID 10/05/24 Unk nown History doxycycline monohydrate 100 mg 100 mg PO BID 10/05/24 Unknown History capsule insulin human U-100 NPH-regulr subcut 10/05/24 Unknown History 70-30 mix 100 unit/mL subcutaneous susp (Humulin 70/30 U-100 Insulin) omeprazole 20 mg capsule,delayed 20 mg PO DAILY Unknown History release propranolol 20 mg tablet 20 mg PO BID 10/05/24 Unknow n History Allergy/AdvReac Type Severity Reaction Status Date / Time No Known Allergies Allergy Verified 10/05/24 11:37 Surgical History History of partial amputation of toe of right foot h/o appendectomy Social History Smoking Status: Never smoker ROS Constitutional Constitutional: Reports fatigue and weakness; Denies chills or fever(s) Cardiovascular Cardiovascular: Denies chest pain Respiratory/Chest Respiratory/Chest: Denies shortness of breath at rest Gastrointestinal Gastrointestinal: Denies abdominal pain Musculoskeletal Musculoskeletal: Reports other Details: Right foot and ankle pain/erythema ; Denies arthralgias or myalgias Neurologic Neurologic: Denies dizziness, focal weakness, headache(s), numbness or tingling Vital Signs Vital Signs Vital Signs: 10/05/24 11:35 Temperature 98.9 F Temperature Source Oral Pulse Rate 85 Respiratory Rate 18 Blood Pressure 124/85 H Blood Pressure Mean 98 Pulse Ox 94 Oxygen Delivery Method Room Air Weight Weight: 114.759 kg Body Mass Index (BMI) 35.2 Physical Exam Const alert, oriented x3 and no apparent distress Constitutional Narrative: Elderly male, class II obesity, fatigued appearing but otherwise laying back comfortably in bed, answering questions with short appropriate responses, in no acute distress. General Appearance: cooperative and comfortable HEENT normocephalic, head/scalp atraumatic, hearing grossly normal bilaterally, nasal mucous membranes and turbinates normal and moist oral mucous membranes Eyes PERRL, EOMs intact bilaterally and conjunctivae normal Neck full ROM Chest inspection of chest normal Resp normal respiratory effort, normal air movement, no use of accessory muscles and clear to auscultation bilaterally Cardio regular rate, regular rhythm, no murmurs and peripheral pulses 2+ throughout GI normal to inspection, nondistended, normoactive bowel sounds, soft to palpation,non-tender and non-distended Back/Spine normal ROM Extremity Extremity Narrative: Right third toe wound noted with bandage in place. Erythema and tenderness to palpation extending from toes up to the mid calf noted. Neuro moves all extremities and no focal motor deficits Speech: speech normal Psych mental status grossly normal Results Lab / Micro Data 10/05/24 12:30 10/05/24 12:30 Labs: Laboratory Results - last 24 hr 10/05/24 12:30: WBC 10.0, RBC 4.97, Hgb 15.5, Hct 45.3, MCV 91.1, MCH 31.2, MCHC34.2, RDW Std Deviation 42.4, RDW Coeff of Brant 12.7, Plt Count 170, MPV 11.2, Immature Gran % (Auto) 0.600, Neut % (Auto) 81.8 H, Lymph % (Auto) 7.1 L, Sanborn %(Auto) 9.6, Eos % (Auto) 0.7, Baso % (Auto) 0.2, Absolute Neuts (auto) 8.1 H, Absolute Lymphs (auto) 0.71 L, Nucleated RBC % 0, ESR 37 H, Sodium 137, Potassium3.7, Chloride 96 L, Carbon Dioxide 25.8, Anion Gap 16 H, BUN 36 H, Creatinine 1.57 H, Estim Creat Clear Calc 53.99, Est GFR (MDRD) Non-Af 46 L, BUN/CreatinineRatio 22.8 H, Glucose 235 H, Calcium 9.4, C-React Prot Ext Range 251.00 H Imaging Radiology Impression Ankle X-Ray 10/05/24 12:01 IMPRESSION: No acute osseous abnormalities. Reading Location: [id number] Foot X-Ray 10/05/24 12:01 IMPRESSION: No acute osseous abnormalities. Reading Location: [id number] Assessment & Plan Assessment/Plan (1) Cellulitis of leg, right: (2) Debility: PLAN: Plan Patient is a 74-year-old male who presented [facility] ED on 10/05/2024 with worsening right foot and ankle pain/erythema and worsening generalized weakness. 1. Right lower extremity cellulitis with chronic right third toe wound and recent debridement ? [facility]. Wound care consulted. Follows with Dr. Morgan with podiatry for chronic right third toe wound. Had toe debrided in the office on 10/01. Developed right foot erythema extending up to the lower calf with swelling and tenderness to palpation. Hemodynamically stable, afebrile and no leukocytosis on admit. However, CRP 251 and ESR 37. Right footand ankle x-rays were unremarkable, minimal concern for osteomyelitis. Notably wound cultures from the right third toe from prior debridement on 09/10 grew 3+ MRSA. Will treat with IV vancomycin for now. Monitor clinically. Will hold onpodiatry consult for now but can consider as needed. 2. Acute on chronic debility in setting of Parkinson's disease ? PT/OT/case management consulted. Patient lives at home with his . He hasdecent functional status at baseline but has been weaker than his normal over the past several days. Appreciate therapy recommendations. Continue home Sinemet and propranolol. 3. CKD stage IIIa ? Creatinine 1.57 on admit, baseline 1.3-1.5. Given 1 L of fluids on admit. Follow-up a.m. BMP and monitor urine output. Chronic medical conditions: ? Class II obesity: BMI 35.3 on admit. Complicates hospital course and care. ? Type 2 diabetes mellitus with diabetic neuropathy: Blood glucose 235 on admit. A1c ordered. Will treat with sliding scale insulin with meals while inpatient,adjust as needed. Hold home empagliflozin and glimepiride. Continue home gabapentin. ? Hypertension/hyperlipidemia: BP low normal in the ED. Will hold home lisinopril?hydrochlorothiazide for now. Continue home statin. ? GERD: Continue home PPI. ? BPH with obstructive symptoms: Continue home Flomax. DVT prophylaxis: Lovenox CODE STATUS: DNR-CCA, DNI Expected disposition: TBD Total clinical time spent by myself addressing the patient's medical issues, reviewing all the data, and collaborating with patient's care team: 75 minutes. Charges/Coding Visit Charges Inpatient E&M: 78321 Init Hosp L3 10/05/24 1536 <Electronically signed by Stephen Deal DO> Cosigner Signature (if applicable): CC: Dr. Stephen Deal DO; Dr. Elana Hickman DO~ Signed [facility] Work Phone: 1(341) 530-841908-23-2025 Discharge summary Author Wang Nuñez [facility] Note Date/Time October 05, 2024 2: 36pm [facility] Medical Records Department [address] [place] [address] Emergency Department Summary 10/05/24 MR#: [id number] Acct: [id number] Name: AMBROCIO JEFFERS Rep #:[id number] : 1950 74 From: Wang Nuñez MD PCP: Dr. Elana Hickman, DO Status:REG ER Location: ED HPI History of Present Illness Chief Complaint: Lower Extremity Injury Informant: patient and spouse/S.O. Narrative Narrative: 74-year-old male with Parkinson's, chronically with poor balance as result, states he had an accidental fall today somehow injuring his right foot and ankle, he cannot tell me anything about the mechanism or how he fell. No prodromal symptoms. He states it was just an accident. Most of the pain since the injury is in his right ankle and posteriorly in the lower leg. The significant other states that he had a debridement his toe by podiatry earlier in the week and has been having redness in the foot prior to the fall. As result they called podiatry and they called doxycycline and then he started taking that 2 days ago but the redness has extended up his legs some. No feversor chills. Patient was able to stand and get a shower today but he states he isdefinitely weaker than usual and it is not focal. [facility] Medical History Parkinson disease Hypertension Diabetes Home Medications ?Medication ?Instructions ?Recorded ?Last Taken ?Type carbidopa 25 mg-levodopa 250 mg 2 tab PO BID 03/10/20 Unknown History tablet empagliflozin 10 mg tablet 10 mg PO DAILY 03/10/20 Unk nown History (Jardiance) glimepiride 4 mg tablet 4 mg PO DAILY 03/10/20 Unkno wn History lisinopril 20 1 tab PO DAILY 03/10/20 Unkn own History mg-hydrochlorothiazide 25 mg tablet tamsulosin 0.4 mg capsule 0.4 mg PO Q24H 03/10/20 Unkn own History propranolol 60 mg tablet 20 mg PO BID 05/07/20 Unknow n History amitriptyline 25 mg tablet 25 mg PO QHS 11/09/22 Unkno wn History cholecalciferol (vitamin D3) 50 50 mcg PO DAILY Unknown History mcg (2,000 unit) tablet empagliflozin 25 mg tablet 25 mg PO DAILY 11/09/22 Unk nown History (Jardiance) gabapentin 100 mg capsule 100 mg PO Q8H 11/09/22 Unkno wn History pravastatin 20 mg tablet 20 mg PO DAILY 11/09/22 Unkn own History doxycycline hyclate 100 mg capsule 100 mg PO BID 2 evi reynolds #28 caps 03/16/24 Unknown Rx Allergy/AdvReac Type Severity Reaction Status Date / Time No Known Allergies Allergy Verified 10/05/24 11:37 Surgical History History of partial amputation of toe of right foot h/o appendectomy Social History Smoking Status: Never smoker ROS ROS ED Constitutional Constitutional ED: Reports weakness; Denies chills or fever(s) Eyes Eyes: Denies change in vision or diplopia ENT ENT ED: Denies rhinorrhea or sore throat Cardiovascular Cardiovascular: Denies chest pain or palpitations Respiratory/Chest Respiratory/Chest: Denies cough or dyspnea Gastrointestinal Gastrointestinal: Denies abdominal pain, diarrhea, nausea or vomiting Genitourinary Genitourinary ED: Denies dysuria or hematuria Musculoskeletal Musculoskeletal: Reports extremity pain; Denies neck pain Integumentary Reports rash and wounds; Denies Abrasions Neurologic Neurologic: Reports as per HPI, abnormal gait and tremor(s); Denies headache(s),paresthesias or weakness Psychiatric Psychiatric: Denies suicidal thoughts EXAM Physical Exam Const Vital Signs: 10/05/24 11:35 Temperature 98.9 F Temperature Source Oral Pulse Rate 85 Respiratory Rate 18 Blood Pressure 124/85 H Blood Pressure Mean 98 Pulse Ox 94 Oxygen Delivery Method Room Air Positive well nourished and well developed General Appearance ED: well developed and NAD HEENT Reports moist mucous membranes normocephalic and atraumatic Eyes PERRL and EOMs intact bilaterally Neck full ROM and supple Resp normal respiratory effort and clear to auscultation bilaterally Cardio regular rate and regular rhythm GI non-tender and non-distended Auscultation: normoactive bowel sounds Palpation: soft Back/Spine normal ROM and normal to inspection General Back: other FROM Extremity normal to inspection Extremity Narrative: Patient has some very mild tenderness in the right midfoot, but nothing distal to that. There is a third toe with a bandage on it, there is no tenderness throughout that or any of the toes but there is mild swelling and hyperemia throughout the entire dorsum of the foot including all of the toes. This extends into the ankle area where he is tender diffusely both medial and lateralmalleoli, the calcaneus is nontender but the posterior lower leg soft tissues from the Achilles on Paff the calf is all very tender, there are some erythema no induration, the erythema extends up the medial aspect of the left calf but not beyond. All compartments are soft and nondistended. Limited range of motion of the ankle due to pain. No abscess. General Extremety ED: Yes edema and tenderness; Negative for pulses abnormal General Extremity: edema; Negative for pulses abnormal Neuro oriented x3, no focal motor deficits and no sensory deficits noted Neuro Narrative: Patient has difficulty lifting either leg off the bed himself. Fine resting tremor. Sensorium / Orientation: alert Motor Exam: general weakness Psych mental status grossly normal and thought process normal Skin Skin Narrative: Erythema right foot and lower leg see above. Postoperative debridement distal right toe does not appear grossly infected. Plantar aspect of the foot is unremarkable. No other lesions or abscess. MDM MDM MDM Narrative Medical decision making narrative: Three-view x-ray series of the right ankle is negative for acute fracture, and 2view x-ray series of the right foot is negative for fracture and negative for subcutaneous emphysema. On reevaluation the erythema is similar to what it was when I first evaluated him. There is no subcutaneous emphysema to suggest necrotizing fasciitis here. He is well-appearing and his vital signs are normal. I empirically gave him a dose of vancomycin. His labs are noted, inflammatory markers are elevated. My suspicion is that this is all cellulitis in addition to maybe an ankle sprain. He is definitely weaker than usual, the cellulitis isgone all the way up to his calf, been on doxycycline for 2 days, I advised admission and further evaluation and treatment. He is reluctantly amenable. Following with Dr. Morgan podiatry. Lab Data Attestation: I reviewed the patient's lab results. Labs: Laboratory Results - last 24 hr 10/05/24 12:30 WBC 10.0 RBC 4.97 Hgb 15.5 Hct 45.3 MCV 91.1 MCH 31.2 MCHC 34.2 RDW Std Deviation 42.4 RDW Coeff of Brant 12.7 Plt Count 170 MPV 11.2 Immature Gran % (Auto) 0.600 Neut % (Auto) 81.8 H Lymph % (Auto) 7.1 L Sanborn % (Auto) 9.6 Eos % (Auto) 0.7 Baso % (Auto) 0.2 Absolute Neuts (auto) 8.1 H Absolute Lymphs (auto) 0.71 L Nucleated RBC % 0 ESR 37 H Sodium 137 Potassium 3.7 Chloride 96 L Carbon Dioxide 25.8 Anion Gap 16 H BUN 36 H Creatinine 1.57 H Estim Creat Clear Calc 53.99 Est GFR (MDRD) Non-Af 46 L BUN/Creatinine Ratio 22.8 H Glucose 235 H Calcium 9.4 C-React Prot Ext Range 251.00 H Radiography Diagnostic Testing: Clinical Impression(s) from Imaging Studies Ankle X-Ray 10/05/24 12:01 IMPRESSION: No acute osseous abnormalities. Reading Location: [facility] Foot X-Ray 10/05/24 12:01 IMPRESSION: No acute osseous abnormalities. Reading Location: [facility] Management Discussion w/another healthcare provider: Hospitalist Discharge Plan Triage Chief Complaint: Lower Extremity Injury ED Provider: Wang Nuñez Dx/Rx/DC Orders Clinical Impression: Cellulitis of leg, right, Right ankle sprain, Debility, Failure of outpatient treatment Prescriptions: No Action glimepiride 4 mg tablet 4 mg PO DAILY Patient Comments: TAKE 1 TABLET BY MOUTH EVERY DAY lisinopril-hydrochlorothiazide 20-25 mg tablet 1 tab PO DAILY carbidopa-levodopa 25-250 mg tablet 2 tab PO BID Jardiance 10 mg tablet 10 mg PO DAILY tamsulosin 0.4 mg capsule 0.4 mg PO Q24H propranolol 60 mg tablet 20 mg PO BID cholecalciferol (vitamin D3) 50 mcg (2,000 unit) tablet 50 mcg PO DAILY Patient Comments: TAKE 1 TABLET BY MOUTH EVERY DAY pravastatin 20 mg tablet 20 mg PO DAILY Patient Comments: TAKE 1 TABLET BY MOUTH EVERY OTHER DAY Jardiance 25 mg tablet 25 mg PO DAILY amitriptyline 25 mg tablet 25 mg PO QHS gabapentin 100 mg capsule 100 mg PO Q8H Patient Comments: TAKE 1 CAPSULE BY MOUTH TWICE A DAY doxycycline hyclate 100 mg capsule 100 mg PO BID 14 Days Qty: 28 0RF Primary Care Provider: Elana Hickman Referrals: Elana Hickman DO [Primary Care Provider] - Print Language: Ivorian Disposition Disposition: Acute Care Hospital [facility] What to do if you have Problems For any increased pain, shortness of breath, bleeding, nausea or vomiting, chestpain, or any unexpected problems, contact your Primary Care Provider. Call [facility] ([phone]) or report to the closest Emergency Room. Call 911 if necessary. 10/05/24 1436 <Electronically signed by Wang Nuñez MD> Cosigner Signature (if applicable): CC: Dr. Elana Hickman DO ~ Signed [facility] Work Phone: 1(957) 739-327408-23-2025 Evaluation note* Diagnosis Onset Date Resolution Status Admit Date Cellulitis of leg, right acute October 05, 2024 2:29pm Cellulitis of right foot acute October 05, 2024 2:29pm Debility acute October 05 025 2:29pm Osteomyelitis of right foot acute October 05, 2024 2:29pm Non-pressure chronic ulcer o f other part of right foot with fat layer exposed chronic October 05 2 025 2:29pm [facility] Work Phone: 1(660) 198-723008-23-2025 Evaluation note* Diagnosis Onset Date Resolution Status Admit Date Debility acute October 05, 2 025 2:29pm Cellulitis of leg, right resolved October 05, 2024 2:29pm Cellulitis of right foot resolved October 05, 2024 2:29pm Non-pressure chronic ulcer o f other part of right foot with fat layer exposed resolved October 05, 2 025 2:29pm Osteomyelitis of right foot resolved October 05, 2024 2:29pm 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 acute October 11 3:07pm Acute kidney injury acute Aug2024 3:07pm BPH (benign prostatic hyperplasia) acute October 11 3:07pm Debility acute October 11, 2 025 3:07pm Essential (primary) hypertension acute October 11 3:07pm Hyperlipidemia acute September 3:07pm Neuropathic pain acute September 142024 3:07pm Osteomyelitis of third toe o f right foot acute October 11 3:07pm Parkinson disease acute October 11, 2024 3:07pm Type 2 diabetes mellitus wit h hyperglycemia acute October 11 3:07pm [facility] Work Phone: [phone] 630-858208-23-2025 History and physical note [facility] Medical Records Department [address] [place] [address] H&P Exam - Hospitalist 10/05/24 1428 MR#: [id number] Acct: [id number] Name: AMBROCIO JEFFERS Rep #:[id number] : 1950 74 From: Stephen navarrete DO PCP: Dr. Elana Hickman DO Status:ADM IN Location: [facility] [id number] HPI - General General Date of Admission: 10/05/24 Date of Service: 10/05/24 Chief Complaint: Right foot/ankle pain and swelling and generalized weakness HPI Narrative AMBROCIO JEFFERS, is a 74 M who presented to [facility] ED on 10/05/2024 with worsening right foot/ankle pain and swelling as well as generalized weakness. Medical history is significant for Parkinson's disease, type 2 diabetes with neuropathy and hypertension. Patient has a chronic right third toe wound and follows with Dr. Morgan with podiatry for this. He had that toe debrided in the office on Sunday 10/01. A few days ago he noticed redness in the foot and extending up into the ankle. Called the podiatry office who started him on p.o. doxycycline. However, he has had worsening weakness since then and had a small fall at home, so he came to the ED today for further evaluation. In the ED he was normotensive, afebrile and stable on room air at rest. No leukocytosis noted. However, inflammatory markers were significantly elevated with CRP 251, ESR 37. Foot and ankle x-ray both showed no concerning findings, and per ED physician on exam there was no concern for subcutaneous emphysema or necrotizing fasciitis. Given his worsening infection and weakness,hospitalist was contacted for admission. I saw the patient at bedside in the ED, was present. Patient was fatigued appearing but otherwise sitting backcomfortably in bed and in no acute distress. He was answering questions with short appropriate responses. Reported only mild right foot and ankle discomfortcurrently. Denied any fevers or chills. Does note that he feels weaker than his normal. No other acute concerns at this time. Will be admitted for furthermanagement. [facility] Medical History Parkinson disease Hypertension Diabetes Home Medications ?Medication ?Instructions ?Recorded ?Last Taken ?Type carbidopa 25 mg-levodopa 250 mg 2 tab PO BID 03/10/20 Unknown History tablet glimepiride 4 mg tablet 4 mg PO DAILY 03/10/20 Unkno wn History lisinopril 20 1 tab PO DAILY 03/10/20 Unkn own History mg-hydrochlorothiazide 25 mg tablet tamsulosin 0.4 mg capsule 0.4 mg PO Q24H 03/10/20 Unkn own History cholecalciferol (vitamin D3) 50 50 mcg PO DAILY Unknown History mcg (2,000 unit) tablet empagliflozin 25 mg tablet 25 mg PO DAILY 11/09/22 Unk nown History (Jardiance) gabapentin 100 mg capsule 100 mg PO Q8H 11/09/22 Unkno wn History pravastatin 20 mg tablet 20 mg PO DAILY 11/09/22 Unkn own History cyclobenzaprine 10 mg tablet 10 mg PO TID 10/05/24 Unk nown History doxycycline monohydrate 100 mg 100 mg PO BID 10/05/24 Unknown History capsule insulin human U-100 NPH-regulr subcut 10/05/24 Unknown History 70-30 mix 100 unit/mL subcutaneous susp (Humulin 70/30 U-100 Insulin) omeprazole 20 mg capsule,delayed 20 mg PO DAILY Unknown History release propranolol 20 mg tablet 20 mg PO BID 10/05/24 Unknow n History Allergy/AdvReac Type Severity Reaction Status Date / Time No Known Allergies Allergy Verified 10/05/24 11:37 Surgical History History of partial amputation of toe of right foot h/o appendectomy Social History Smoking Status: Never smoker ROS Constitutional Constitutional: Reports fatigue and weakness; Denies chills or fever(s) Cardiovascular Cardiovascular: Denies chest pain Respiratory/Chest Respiratory/Chest: Denies shortness of breath at rest Gastrointestinal Gastrointestinal: Denies abdominal pain Musculoskeletal Musculoskeletal: Reports other Details: Right foot and ankle pain/erythema ; Denies arthralgias or myalgias Neurologic Neurologic: Denies dizziness, focal weakness, headache(s), numbness or tingling Vital Signs Vital Signs Vital Signs: 10/05/24 11:35 Temperature 98.9 F Temperature Source Oral Pulse Rate 85 Respiratory Rate 18 Blood Pressure 124/85 H Blood Pressure Mean 98 Pulse Ox 94 Oxygen Delivery Method Room Air Weight Weight: 114.759 kg Body Mass Index (BMI) 35.2 Physical Exam Const alert, oriented x3 and no apparent distress Constitutional Narrative: Elderly male, class II obesity, fatigued appearing but otherwise laying back comfortably in bed, answering questions with short appropriate responses, in no acute distress. General Appearance: cooperative and comfortable HEENT normocephalic, head/scalp atraumatic, hearing grossly normal bilaterally, nasal mucous membranes and turbinates normal and moist oral mucous membranes Eyes PERRL, EOMs intact bilaterally and conjunctivae normal Neck full ROM Chest inspection of chest normal Resp normal respiratory effort, normal air movement, no use of accessory muscles and clear to auscultation bilaterally Cardio regular rate, regular rhythm, no murmurs and peripheral pulses 2+ throughout GI normal to inspection, nondistended, normoactive bowel sounds, soft to palpation,non-tender and non-distended Back/Spine normal ROM Extremity Extremity Narrative: Right third toe wound noted with bandage in place. Erythema and tenderness to palpation extending from toes up to the mid calf noted. Neuro moves all extremities and no focal motor deficits Speech: speech normal Psych mental status grossly normal Results Lab / Micro Data 10/05/24 12:30 10/05/24 12:30 Labs: Laboratory Results - last 24 hr 10/05/24 12:30: WBC 10.0, RBC 4.97, Hgb 15.5, Hct 45.3, MCV 91.1, MCH 31.2, MCHC34.2, RDW Std Deviation 42.4, RDW Coeff of Brant 12.7, Plt Count 170, MPV 11.2, Immature Gran % (Auto) 0.600, Neut % (Auto) 81.8 H, Lymph % (Auto) 7.1 L, Sanborn %(Auto) 9.6, Eos % (Auto) 0.7, Baso % (Auto) 0.2, Absolute Neuts (auto) 8.1 H, Absolute Lymphs (auto) 0.71 L, Nucleated RBC % 0, ESR 37 H, Sodium 137, Potassium3.7, Chloride 96 L, Carbon Dioxide 25.8, Anion Gap 16 H, BUN 36 H, Creatinine 1.57 H, Estim Creat Clear Calc 53.99, Est GFR (MDRD) Non-Af 46 L, BUN/CreatinineRatio 22.8 H, Glucose 235 H, Calcium 9.4, C-React Prot Ext Range 251.00 H Imaging Radiology Impression Ankle X-Ray 10/05/24 12:01 IMPRESSION: No acute osseous abnormalities. Reading Location: [facility] Foot X-Ray 10/05/24 12:01 IMPRESSION: No acute osseous abnormalities. Reading Location: [facility] Assessment & Plan Assessment/Plan (1) Cellulitis of leg, right: (2) Debility: PLAN: Plan Patient is a 74-year-old male who presented [facility] ED on 10/05/2024 with worsening right foot and ankle pain/erythema and worsening generalized weakness. 1. Right lower extremity cellulitis with chronic right third toe wound and recent debridement ? [facility]. Wound care consulted. Follows with Dr. Morgan with podiatry for chronic right third toe wound. Had toe debrided in the office on 10/01. Developed right foot erythema extending up to the lower calf with swelling and tenderness to palpation. Hemodynamically stable, afebrile and no leukocytosis on admit. However, CRP 251 and ESR 37. Right footand ankle x- rays were unremarkable, minimal concern for osteomyelitis. Notably wound cultures from the right third toe from prior debridement on 09/10 grew 3+ MRSA. Will treat with IV vancomycin for now. Monitor clinically. Will hold onpodiatry consult for now but can consider as needed. 2. Acute on chronic debility in setting of Parkinson's disease ? PT/OT/case management consulted. Patient lives at home with his . He hasdecent functional status at baseline but has been weaker than his normal over the past several days. Appreciate therapy recommendations. Continue home Sinemet and propranolol. 3. CKD stage IIIa ? Creatinine 1.57 on admit, baseline 1.3-1.5. Given 1 L of fluids on admit. Follow-up a.m. BMP and monitor urine output. Chronic medical conditions: ? Class II obesity: BMI 35.3 on admit. Complicates hospital course and care. ? Type 2 diabetes mellitus with diabetic neuropathy: Blood glucose 235 on admit. A1c ordered. Will treat with sliding scale insulin with meals while inpatient,adjust as needed. Hold home empagliflozin and glimepiride. Continue home gabapentin. ? Hypertension/hyperlipidemia: BP low normal in the ED. Will hold home lisinopril?hydrochlorothiazide for now. Continue home statin. ? GERD: Continue home PPI. ? BPH with obstructive symptoms: Continue home Flomax. DVT prophylaxis: Lovenox CODE STATUS: DNR-CCA, DNI Expected disposition: TBD Total clinical time spent by myself addressing the patient's medical issues, reviewing all the data, and collaborating with patient's care team: 75 minutes. Charges/Coding Visit Charges Inpatient E&M: 08826 Init Hosp L3 10/05/24 1536 Cosigner Signature (if applicable): CC: Dr. Stephen Deal, ; Dr. Elana Hickman DO~ Signed [facility]08-23-2025 Discharge summary [facility] Medical Records Department [address] [place] [address] Emergency Department Summary 10/05/24 MR#: [id number] Acct: [id number] Name: AMBROCIO JEFFERS Rep #:[id number] : 1950 74 From: Wang Nuñez MD PCP: Dr. Elana Hickman DO Status:REG ER Location: ED HPI History of Present Illness Chief Complaint: Lower Extremity Injury Informant: patient and spouse/S.O. Narrative Narrative: 74-year-old male with Parkinson's, chronically with poor balance as result, states he had an accidental fall today somehow injuring his right foot and ankle, he cannot tell me anything about the mechanism or how he fell. No prodromal symptoms. He states it was just an accident. Most of the pain since the injury is in his right ankle and posteriorly in the lower leg. The significant other states that he had a debridement his toe by podiatry earlier in the week and has been having redness in the foot prior to the fall. As result they called podiatry and they called doxycycline and then he started taking that 2 days ago but the redness has extended up his legs some. No feversor chills. Patientwas able to stand and get a shower today but he states he isdefinitely weaker than usual and it is not focal. [facility] Medical History Parkinson disease Hypertension Diabetes Home Medications ?Medication ?Instructions ?Recorded ?Last Taken ?Type carbidopa 25 mg-levodopa 250 mg 2 tab PO BID 03/10/20 Unknown History tablet empagliflozin 10 mg tablet 10 mg PO DAILY 03/10/20 Unk nown History (Jardiance) glimepiride 4 mg tablet 4 mg PO DAILY 03/10/20 Unkno wn History lisinopril 20 1 tab PO DAILY 03/10/20 Unkn own History mg-hydrochlorothiazide 25 mg tablet tamsulosin 0.4 mg capsule 0.4 mg PO Q24H 03/10/20 Unkn own History propranolol 60 mg tablet 20 mg PO BID 05/07/20 Unknow n History amitriptyline 25 mg tablet 25 mg PO QHS 11/09/22 Unkno wn History cholecalciferol (vitamin D3) 50 50 mcg PO DAILY Unknown History mcg (2,000 unit) tablet empagliflozin 25 mg tablet 25 mg PO DAILY 11/09/22 Unk nown History (Jardiance) gabapentin 100 mg capsule 100 mg PO Q8H 11/09/22 Unkno wn History pravastatin 20 mg tablet 20 mg PO DAILY 11/09/22 Unkn own History doxycycline hyclate 100 mg capsule 100 mg PO BID 2 wee ks #28 caps 03/16/24 Unknown Rx Allergy/AdvReac Type Severity Reaction Status Date / Time No Known Allergies Allergy Verified 10/05/24 11:37 Surgical History History of partial amputation of toe of right foot h/o appendectomy Social History Smoking Status: Never smoker ROS ROS ED Constitutional Constitutional ED: Reports weakness; Denies chills or fever(s) Eyes Eyes: Denies change in vision or diplopia ENT ENT ED: Denies rhinorrhea or sore throat Cardiovascular Cardiovascular: Denies chest pain or palpitations Respiratory/Chest Respiratory/Chest: Denies cough or dyspnea Gastrointestinal Gastrointestinal: Denies abdominal pain, diarrhea, nausea or vomiting Genitourinary Genitourinary ED: Denies dysuria or hematuria Musculoskeletal Musculoskeletal: Reports extremity pain; Denies neck pain Integumentary Reports rash and wounds; Denies Abrasions Neurologic Neurologic: Reports as per HPI, abnormal gait and tremor(s); Denies headache(s),paresthesias or weakness Psychiatric Psychiatric: Denies suicidal thoughts EXAM Physical Exam Const Vital Signs: 10/05/24 11:35 Temperature 98.9 F Temperature Source Oral Pulse Rate 85 Respiratory Rate 18 Blood Pressure 124/85 H Blood Pressure Mean 98 Pulse Ox 94 Oxygen Delivery Method Room Air Positive well nourished and well developed General Appearance ED: well developed and NAD HEENT Reports moist mucous membranes normocephalic and atraumatic Eyes PERRL and EOMs intact bilaterally Neck full ROM and supple Resp normal respiratory effort and clear to auscultation bilaterally Cardio regular rate and regular rhythm GI non-tender and non-distended Auscultation: normoactive bowel sounds Palpation: soft Back/Spine normal ROM and normal to inspection General Back: other FROM Extremity normal to inspection Extremity Narrative: Patient has some very mild tenderness in the right midfoot, but nothing distal to that. There is a third toe with a bandage on it, there is no tenderness throughout that or any of the toes but there is mild swelling and hyperemia throughout the entire dorsum of the foot including all of the toes. This extends into the ankle area where he is tender diffusely both medial and lateralmalleoli, the calcaneus is nontender but the posterior lower leg soft tissues from the Achilles on Paff the calf is all very tender, there are some erythema no induration, the erythema extends up the medial aspect ofthe left calf but not beyond. All compartments are soft and nondistended. Limited range of motion of the ankle due to pain. No abscess. General Extremety ED: Yes edema and tenderness; Negative for pulses abnormal General Extremity: edema; Negative for pulses abnormal Neuro oriented x3, no focal motor deficits and no sensory deficits noted Neuro Narrative: Patient has difficulty lifting either leg off the bed himself. Fine resting tremor. Sensorium / Orientation: alert Motor Exam: general weakness Psych mental status grossly normal and thought process normal Skin Skin Narrative: Erythema right foot and lower leg see above. Postoperative debridement distal right toe does not appear grossly infected. Plantar aspect of the foot is unremarkable. No other lesions or abscess. MDM MDM MDM Narrative Medical decision making narrative: Three-view x-ray series of the right ankle is negative for acute fracture, and 2view x-ray series of the right foot is negative for fracture and negative for subcutaneous emphysema. On reevaluation the erythema is similar to what it was when I first evaluated him. There is no subcutaneous emphysemato suggest necrotizing fasciitis here. He is well-appearing and his vital signs are normal. I empirically gave him a dose of vancomycin. His labs are noted, inflammatory markers are elevated. My suspicion is that this is all cellulitis in addition to maybe an ankle sprain. He is definitely weaker than usual, the cellulitis isgone all the way up to his calf, been on doxycycline for 2 days, I advised admission and further evaluation and treatment. He is reluctantly amenable. Following with Dr. Morgan podiatry. Lab Data Attestation: I reviewed the patient's lab results. Labs: Laboratory Results - last 24 hr 10/05/24 12:30 WBC 10.0 RBC 4.97 Hgb 15.5 Hct 45.3 MCV 91.1 MCH 31.2 MCHC 34.2 RDW Std Deviation 42.4 RDW Coeff of Brant 12.7 Plt Count 170 MPV 11.2 Immature Gran % (Auto) 0.600 Neut % (Auto) 81.8 H Lymph % (Auto) 7.1 L Sanborn % (Auto) 9.6 Eos % (Auto) 0.7 Baso % (Auto) 0.2 Absolute Neuts (auto) 8.1 H Absolute Lymphs (auto) 0.71 L Nucleated RBC % 0 ESR 37 H Sodium 137 Potassium 3.7 Chloride 96 L Carbon Dioxide 25.8 Anion Gap 16 H BUN 36 H Creatinine 1.57 H Estim Creat Clear Calc 53.99 Est GFR (MDRD) Non-Af 46 L BUN/Creatinine Ratio 22.8 H Glucose 235 H Calcium 9.4 C-React Prot Ext Range 251.00 H Radiography Diagnostic Testing: Clinical Impression(s) from Imaging Studies Ankle X-Ray 10/05/24 12:01 IMPRESSION: No acute osseous abnormalities. Reading Location: [facility] Foot X-Ray 10/05/24 12:01 IMPRESSION: No acute osseous abnormalities. Reading Location: [facility] Management Discussion w/another healthcare provider: Hospitalist Discharge Plan Triage Chief Complaint: Lower Extremity Injury ED Provider: Wang Nuñez Dx/Rx/DC Orders Clinical Impression: Cellulitis of leg, right, Right ankle sprain, Debility, Failure of outpatient treatment Prescriptions: No Action glimepiride 4 mg tablet 4 mg PO DAILY Patient Comments: TAKE 1 TABLET BY MOUTH EVERY DAY lisinopril-hydrochlorothiazide 20-25 mg tablet 1 tab PO DAILY carbidopa-levodopa 25-250 mg tablet 2 tab PO BID Jardiance 10 mg tablet 10 mg PO DAILY tamsulosin 0.4 mg capsule 0.4 mg PO Q24H propranolol 60 mg tablet 20 mg PO BID cholecalciferol (vitamin D3) 50 mcg (2,000 unit) tablet 50 mcg PO DAILY Patient Comments: TAKE 1 TABLET BY MOUTH EVERY DAY pravastatin 20 mg tablet 20 mg PO DAILY Patient Comments: TAKE 1 TABLET BY MOUTH EVERY OTHER DAY Jardiance 25 mg tablet 25 mg PO DAILY amitriptyline 25 mg tablet 25 mg PO QHS gabapentin 100 mg capsule 100 mg PO Q8H Patient Comments: TAKE 1 CAPSULE BY MOUTH TWICE A DAY doxycycline hyclate 100 mg capsule 100 mg PO BID 14 Days Qty: 28 0RF Primary Care Provider: Elana Hickman Referrals: Elana Hickman DO [Primary Care Provider] - Print Language: Ivorian Disposition Disposition: Acute Care Hospital [facility] What to do if you have Problems For any increased pain, shortness of breath, bleeding, nausea or vomiting, chestpain, or any unexpected problems, contact your Primary Care Provider. Call [facility] ([phone]) or report tothe closest Emergency Room. Call 911 if necessary. 10/05/24 1436 Cosigner Signature (if applicable): CC: Dr. Elana Hickman DO ~ Signed [facility]08-23-2025 Radiology Diagnostic study note [facility] Imaging Services [address] [place] [address] Ankle min 3 Views MR#: [id number] Acct: [id number] Name: AMBROCIO JEFFERS Rep #: [id number] : 1950 M 74 From: Jose Medrano MD PCP: Dr. Elana Hickman DO Status: REG ER Study:Ankle min 3 Views Date of Exam: Exam# [id number] Ordering Dr: Jeremias Nuñez MD PROCEDURE: ANKLE MIN 3 VIEWS 10/05/2024 REASON FOR EXAM: INJURY/PAIN TECHNIQUE: ANKLE MIN 3 VIEWS Laterality: Right COMPARISON: None FINDINGS: Bones: No acute bony abnormalities. Joints: Unremarkable. The mortise joint is preserved. Soft tissues: Vascular atherosclerotic calcifications. Other: RAD/Ankle min 3 Views IMPRESSION: No acute osseous abnormalities. Reading Location: [facility] CC: Dr. Wang Nuñez MD; Dr. Elana Hickman DO ~ Guideman: Signed [facility]08-23-2025 Radiology Diagnostic study note [facility] Imaging Services [address] [place] [address] Foot min 3 Views MR#: [id number] Acct: [id number] Name: AMBROCIO JEFFERS Rep #: [id number] : 1950 M 74 From: Jose Medrano MD PCP: Dr. Elana Hickman DO Status: REG ER Study:Foot min 3 Views Date of Exam: Exam# [id number] Ordering Dr: Jeremias Nuñez MD PROCEDURE: FOOT MIN 3 VIEWS 10/05/2024 REASON FOR EXAM: PAIN, CELLULITIS, ALSO FALL/INJURY TECHNIQUE: FOOT MIN 3 VIEWS Laterality: Right FINDINGS: Bones: No acute bony abnormalities. Joints: Unremarkable. Soft tissues: Vascular atherosclerotic calcifications. RAD/Foot min 3 Views IMPRESSION: No acute osseous abnormalities. Reading Location: [facility] CC: Dr. Wang Nuñez MD; Dr. Elana Hickman, DO ~ Guideman: Signed [facility]01-21-2025 Note* Exam Date Time Procedure Performing Provider Status 03/05/24 11:56 AM VL Arterial Dopplers Both Legs Rest/PVR- MCKENNA PHILLIP MD; Auth (Verified) [facility]12-22-2023 Hospital Discharge instructions Patient Education 02/03/2023 09:12:23 Knee Pain of Uncertain Cause Knee Pain with Uncertain Cause There are several common causes for knee pain. These can include: A sprain of the ligaments that support the joint An injury to the cartilage lining of the joint Arthritis from lrlt-qfc-kanm or inflammation There are other causes as [...] heat. If you have to wear a ahro-kbq-bgdo knee brace, you can open it to apply the ice pack, or heat, directly to the knee. Never put ice directly on the skin. Always wrap the ice in atowel or other type of cloth. You may use alpq-opc-hoymfdy pain medicine to control pain, unless another [...] full work duties. If you have a fshn-zoj-wglk knee brace, you can remove it to [...] as directed by your healthcare provider Tara [phone] [employer] [address] [place] [address]. All rights reserved. This information is not intended as a substitute for professional medical care. Always follow yourhealthcare professional's instructions. Follow Up Care 02/03/2023 07:52:23 With:DO ELANA MONTANA DO Address: [address] [place] [address] [address] [place] [address] When:5 to 7 days With:ELANA HICKMAN DO Address: [address] [place] [phone] When:2-4 days [facility] 12-22-2023 Note Discharge Instructions Thank you for allowing [facility] to assist you with your healthcare needs. 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 This form of tramadol [...] your pharmacist where to locate a drug take-back disposal program. If there is no take-back [...] may report side effects to FDA at 6-774-STP-0747. What other drugs will affect tramadol? You [...] drugs may affect tramadol, including prescription and wjwy-rkf-cdebdsq medicines, vitamins, and herbal products. Not all [...] may affect tramadol. This includes prescription and nnbj-qzv-xrbaoxa medicines, vitamins, and herbal products. Not all [...] to ensure that the information provided by [employer]. ('[employer]') is accurate, up-to-date, and complete, but no guarantee is made to that effect. Drug information contained herein may be time sensitive. [employer] information has been compiled for use by healthcare practitioners and consumers in the [place] and therefore [employer] does not warrant that uses outside of the [place] are appropriate, unless specifically indicated otherwise. [employer] drug information does not endorse drugs, diagnose patients or recommend therapy. [employer] drug information isan informational resource designed to [...] effective or appropriate for any given patient. [employer] does not assume any responsibility for any aspect of healthcare administered with the aid of information [employer] provides. The information contained herein is not intended to cover all possible uses, directions, precautions, warnings, drug interactions, allergic reactions, or adverse effects. If you have questions about the drugs you are taking, check with your doctor, nurse or pharmacist. Copyright 0410-0877 [employer]. Version: 24.01. Revision Date: 09/16/2022. Education Materials Knee Pain with Uncertain Cause There are several common causes for knee pain. These can include: A sprain of the ligaments that support the joint An injury to the cartilage lining of the joint Arthritis from arwq-gfp-kzjn or inflammation There are other causes as [...] heat. If you have to wear a dflh-tmr-twim knee brace, you can open it to apply the ice pack, or heat, directly to the knee. Never put ice directly on the skin. Always wrap the ice in atowel or other type of cloth. You may use smos-dry-aaupxus pain medicine to control pain, unless another [...] full work duties. If you have a ttzi-jai-znce knee brace, you can remove it to [...] as directed by your healthcare provider Tara [phone] [employer] [address] [place] [address], [place] [address]. All rights reserved. This information is not intended as a substitute for professional medical care. Always follow yourhealthcare professional's instructions. Additional Information VACCINATE! IT SAVES LIVES! Members of the community who have not yet received the COVID-19 vaccine and would like to receive it can visit one of [facility] vaccine clinics. There are many vaccine clinic locations within the [facility]. For locations and available times, please visit [email or web address] It is important to note that some COVID mobile vaccine clinics are held outdoors and may be canceled in rainy or stormy conditions. To learn more about pediatric vaccinations (ages 5-11), we invite you to visit the [facility] webpage. https://www.Context [employer].org/pages/1506-Mrazn-Hzabivpdfjk-Edxxbmfrgb-Yynvc-Bpi stions.htmlTo learn more about the COVID-19 vaccine, we invite you to visit the CDC website for a list of frequently asked questions. https://www.cdc.gov/coronavirus/2019-ncov/vaccines/faq.html [facility] [employer] Patient Portal Access Instructions: Stay connected with your healthcare team and access your personal medical information anytime with the [facility] Patient Portal. If you would like a full copy of your medical records please contact the [facility] Medical Records Department Monday through Monday between 8a.m. and 4:30p.m. Please follow the directions below to access the portal: 1.Access the email account you provided upon registration to the hospital.2.Look for an invitation email from [facility].3.Open the email and access the invitation link: Accept Invitation to [facility]4.Fill in the required mckinley to create your account. Sign into [email or web address] with your username and password that you [...] you will allow to register on the [email or web address] Patient Portal for access to your information. You can also access the [email or web address] Patient Portal on the [employer]. Simply click on "Health Records" under "HealthData" and then click on the anchor.travel logo. HOW TO SAFELY DISPOSE OF PRESCRIPTION [...] Call your local pharmacy or go to http://[employer]/6L4Fg8h to find one close to you.3.Make use of household items: Use cat litter or old coffee grounds to dispose medications if other options arenot available. Mix your drugs with these household products, seal them in an airtight container andthrow it into the garbage. Call [facility]: [phone] to be sure your drugs can be [...] reviewed and explained to me and I,AMBROCIO JEFFERS understand my current condition and have read and understand these discharge instructions. I have received a written copy of the plan/instructions. If I have questions, I am aware that I should contact my doctor. Patient/Computing Services Director Signature: Date/Time: Relationship to Patient: Witness Name/Signature: Date/Time: [facility]12-22-2023 Note* Exam Date Time Procedure Performing Provider Status 02/03/23 8:39 AM VL Venous US/Doppler One Leg (DVT) AO Auth (Verified) [facility] 12-22-2023 Note ORIGINAL EXAMINATION: THREE XRAY VIEWS OF THE RIGHT KNEE02/03/2023 8:48 am COMPARISON: None available HISTORY: ORDERING SYSTEM PROVIDED HISTORY: Reason for Exam: Right knee pain and swelling for 10 days, no trauma FINDINGS: No acute fracture or dislocation is identified. Bony alignment is maintained. Small tricompartmental calcifications are visualized. Odww-wn-ocefwful tricompartmental degenerative changes with joint space narrowing [...] Date: 02/03/2023 8:59:10 AM [facility]ing [facility] Discharge instructions Patient Education 10/25/2022 05:35:12 [...] pain can be reduced in this way. [phone] [employer] [address] [place] [address], [place] [address]. All rights reserved. This information is not intended as a substitute for professional medical care. Always follow yourhealthcare professional's instructions. 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 [id number] [employer] [address] [place] [address]. All rights reserved. This information is not intended as a substitute for professional medical care. Always follow yourhealthcare professional's instructions. Additional Information VACCINATE! IT SAVES LIVES! Members of the community who have not yet received the COVID-19 vaccine and would like to receive it can visit one of [facility] vaccine clinics. There are many vaccine clinic locations within the [facility]. For locations and available times, please visit www.[email or web address]/. It is important to note that some COVID mobile vaccine clinics are held outdoors and may be canceled in rainy or stormy conditions. To learn more about pediatric vaccinations (ages 5-11), we invite you to visit the [facility] webpage. https://www.[facility].org/pages/9606-Pfcxb-Fuffpouhqda-Qrlorlmhbv-Afnld-Bky stions.htmlTo learn more about the COVID-19 vaccine, we invite you to visit the CDC website for a list of frequently asked questions. https://www.cdc.gov/coronavirus/2019-ncov/vaccines/faq.html [facility] Access Instructions: Stay connected with your healthcare team and access your personal medical information anytime with the [facility]. If you would like a full copy of your medical records please contact the [facility] Medical Records Department Monday through Monday between 8a.m. and 4:30p.m. Please follow the directions below to access the portal: 1.Access the email account you provided upon registration to the [facility].2.Look for an invitation email from [facility].3.Open the email and access the invitation link: Accept Invitation to [email or web address].Fill in the required mckinley to create your account. Sign into [email or web address] with your username and password that you [...] you will allow to register on the [email or web address] Patient Portal for access to your information. You can also access the [email or web address] Patient Portal on the [employer]. Simply click on "Health Records" under "Snapflow" and then click on the anchor.travel logo. HOW TO SAFELY DISPOSE OF PRESCRIPTION [...] Call your local pharmacy or go to http://[employer]/9D9Ys3e to find one close to you.3.Make use of household items: Use cat litter or old coffee grounds to dispose medications if other options arenot available. Mix your drugs with these household products, seal them in an airtight container andthrow it into the garbage. Call [facility]: [phone] to be sure your drugs can be [...] reviewed and explained to me and I,AMBROCIO JEFFERS understand my current condition and have read and understand these discharge instructions. I have received a written copy of the plan/instructions. If I have questions, I am aware that I should contact my doctor. Patient/Computing Services Director Signature: Date/Time: Relationship to Patient: Witness Name/Signature: Date/Time: [facility] Future Appointments Appointment Date:07/20/2021 09:00:00 AM Scheduled Provider:ELANA HICKMAN DO Location:[facility] Appointment Type: OV Future Scheduled Tests Laboratory* Thyroid Stimulating Hormone 09/14/20 * Complete Blood Count 09/14/20 * Lipid Profile 09/14/20 Radiology* XR Spine Lumbar W/Obliques 4 Views 12/15/20 [facility] Evaluation + Plan note Future Appointments Appointment Date:08/03/2021 11:30:00 AM Scheduled Provider:ELANA HICKMAN DO Location:[facility] Appointment Type:PC OV Future Scheduled Tests Laboratory* Thyroid Stimulating Hormone 09/14/20 * Complete Blood Count 09/14/20 * Lipid Profile 09/14/20 Radiology* BD Bone Density DEXA Axial Skeleton 07/20/21 * XR Spine Lumbar W/Obliques 4 Views 12/15/20 [facility] evaluation + Plan note Future Appointments Appointment Date:06/14/2022 11:30:00 AM Scheduled Provider:ELANA HICKMAN DO Location:[facility] Appointment Type:PC OV Future Scheduled Tests Radiology* BD Bone Density DEXA Axial Skeleton 07/20/21 [facility] Evaluation + Plan note Future Appointments Appointment Date:11/22/2022 11:30:00 AM Scheduled Provider:ELANA HICKMAN DO Location:[facility] Appointment Type: Wellness Annual Future Scheduled Tests Laboratory* Thyroid Stimulating Hormone 06/14/22 * A1C Hemoglobin 06/14/22 * Complete Blood Count 06/14/22 * Lipid Profile 06/14/22 * Albumin/Creatinine Ratio, Random Urine 06/14/22 * Vitamin D Level 06/14/22 * Complete Metabolic Panel 06/14/22 [facility] Evaluation + Plan note Future Appointments Appointment Date:05/23/2023 11:30:00 AM Scheduled Provider:ELANA HICKMAN DO Location:[facility] Appointment Type:PC OV Future Scheduled Tests Laboratory* Thyroid Stimulating Hormone 06/14/22 * A1C Hemoglobin 06/14/22 * Complete Blood Count 06/14/22 * Lipid Profile 06/14/22 * Albumin/Creatinine Ratio, Random Urine 06/14/22 * Albumin/Creatinine Ratio, Random Urine 11/22/22 * Vitamin D Level 06/14/22 * Complete Metabolic Panel 06/14/22 Radiology* BD Bone Density DEXA Axial Skeleton 11/22/22 [facility] evaluation + Plan note Future Appointments Appointment Date:11/21/2023 09:30:00 AM Scheduled Provider:ELANA HICKMAN DO Location:[facility] Appointment Type:PC OV Future Scheduled Tests Laboratory* Albumin/Creatinine Ratio, Random Urine 05/23/23 Radiology* BD Bone Density DEXA Axial Skeleton 11/22/22 [facility] Evaluation + Plan note Future Appointments Appointment Date:05/21/2024 09:30:00 AM Scheduled Provider:ELANA HICKMAN DO Location:[facility] Appointment Type:PC OV Future Scheduled Tests Laboratory* Vitamin B1 (Thiamine), Blood 11/21/23 * Folate Level 11/21/23 * Prostate Specific Antigen 11/21/23 * Thyroid Stimulating Hormone 11/21/23 * Free T4 11/21/23 * Vitamin B12 Level 11/21/23 * Albumin/Creatinine Ratio, Random Urine 05/23/23 [facility] Evaluation noteNo assessment information available [facility] Work Phone: Hospital course Narrative No data available for this section [facility] Discharge instructions No data available for this section [facility] Discharge instructionsAdditional Instructions Patient is to continue to elevate the right foot at all times rest for postoperative edema control May apply ice behind the right knee for postoperative pain control He is to keep all dressings clean, dry, and intact to the right foot He may continue ambulation in a protected weightbearing status utilizing his surgical shoe to the right foot.[facility] Work Phone: Hospital Discharge instructionsAdditional Instructions Discharge home with 11/12/2024, [facility] PT/OT/SN.[facility] Work Phone: Progress note No data available for this section [facility] Reason for referral (narrative)No reason for referral information availableWUniversity [facility]als [facility] Work Phone: Chief Complaint and Reason for Visit Chief Complaint R Shoulder Pain Chief Complaint Admit Date fallJune 17, 2024 8:44pm Chief Complaint Admit Date fallJune 17, 2024 8:44pm RLE CELLULITIS AND WEAKNESS October 05, 2024 2:29pm RLE CELLULITIS AND WEAKNESS October 06, 2024 11:07am RLE CELLULITIS AND WEAKNESS October 07, 2024 8:28am RLE CELLULITIS AND WEAKNESS October 08, 2024 8:29am RLE CELLULITIS AND WEAKNESS October 09, 2024 8:01am RLE CELLULITIS AND WEAKNESS October 10, 2024 7:56am RLE CELLULITIS AND WEAKNESS October 11, 2024 7:27am Reason for Visit Admit Date Cellulitis of leg, right October 05 2:29pm Cellulitis of right foot October 05 2:29pm Debility October 05, 2024 2: 29pm Osteomyelitis of right foot October 05, 2024 2:29pm Non-pressure chronic ulcer o f other part of right foot with fat layer exposed October 05, 2024 2:29pm Chief Complaint Admit Date RLE CELLULITIS AND WEAKNESS October 05, 2024 2:29pm RLE CELLULITIS AND WEAKNESS October 06, 2024 11:07am RLE CELLULITIS AND WEAKNESS October 07, 2024 8:28am RLE CELLULITIS AND WEAKNESS October 08, 2024 8:29am RLE CELLULITIS AND WEAKNESS October 09, 2024 8:01am RT LEG PAIN October 09, 2024 3: 25pm PREOP October 10, 2024 5: 32am RLE CELLULITIS AND WEAKNESS October 10, 2024 7:56am RLE CELLULITIS AND WEAKNESS October 11, 2024 7:27am RIGHT LOWER EXTREMITY CELLULITIS & WEAKN ESS October 11, 2024 3:07pm Reason for Visit Admit Date Debility October 05, 2024 2: 29pm Cellulitis of leg, right October 05 2:29pm Cellulitis of right foot October 05 2:29pm Non-pressure chronic ulcer o f other part of right foot with fat layer exposed October 05, 2024 2:29pm Osteomyelitis of right foot October 05, 2024 2:29pm 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 October 11, 2024 3:07pm Acute kidney injury October 11, 2024 3: 07pm BPH (benign prostatic hyperplasia) Augus t 2024 3:07pm Debility October 11, 2024 3: 07pm Essential (primary) hypertension October 11, 2024 3:07pm Hyperlipidemia October 11, 2024 3: 07pm Neuropathic pain October 11, 2024 3: 07pm Osteomyelitis of third toe of right foot October 11, 2024 3:07pm Parkinson disease October 11, 2024 3: 07pm Type 2 diabetes mellitus with hyperglyce brooks October 11, 2024 3:07pm Advance Directives No Advanced Directives Records Found Advance Directive Response Recorded Date/ Time Living Will No October 28, 2022 2:33am Power of Curriculum Designer No October 2:33am Advance Directive Response Recorded Date/ Time Do you have a Healthcare Power of Curriculum Designer? Yes June 17, 2024 9:54pm Advance Directive Response Recorded Date/ Time Do you have a Healthcare Power of Curriculum Designer? Yes June 17, 2024 9:54pm Do you have a Healthcare Power of Curriculum Designer? Yes October 05, 2024 3:38pm Advance Directive Response Recorded Date/ Time Do you have a Healthcare Power of Curriculum Designer? Yes October 05, 2024 3:38pm Do you have a Healthcare Power of Curriculum Designer? Yes October 15, 2024 11:28am Summary Purpose Family History No Family History [...] September 10, 2024 End: September 10, 2024 Team Status: Inactive Member Role/Relationship Status [...] September 10, 2024 End: September 10, 2024 Team Status: Inactive Member Role/Relationship Status Dates Dr. Elana Hickman DO Primary Care Provider Active Start: October 05, 2024 End: October 11, 2024 Dr. Wang Nuñez MD Emergency Provider Active Start: October 05, 2024 End: October 11, 2024 Dr. Stephen Deal DO Admit Provider Active Start: October 05, 2024 End: October 11, 2024 Dr. Stephen Deal DO Other Provider Active Start: October 05, 2024 End: October 11, 2024 Dr. Ryne Steward DO Attending Provider Active Start: October 05, 2024 End: October 11, 2024 Dr. Silvia Son MD Other Provider Active St art: October 05, 2024 End: October 11, 2024 Dr. Elana Davis DPM Other Provider Active Start: October 05, 2024 End: October 11, 2024 Dr. Ever Schreiber MD Other Provider Active Start: October 05, 2024 End: October 11, 2024 Team Status: Active Member Role/Relationship Status Dates Dr. Elana Hickman DO Primary Care Provider Active Start: October 06, 2024 Dr. Wang Nuñez MD Emergency Provider Active Start: October 06, 2024 Dr. Stephen Deal , DO Admit Provider Active Start: October 06, 2024 Dr. Stephen Deal DO Other Provider Active Start: October 06, 2024 Dr. Silvia Son MD Attending Provider Active Start: October 06, 2024 Dr. Silvia Son MD Other Provider Active St art: October 06, 2024 Team Status: Active Member Role/Relationship Status Dates Dr. Elana Hickman , DO Primary Care Provider Active Start: October 07, 2024 Dr. Wang Nuñez MD Emergency Provider Active Start: October 07, 2024 Dr. Stephen Deal , DO Admit Provider Active Start: October 07, 2024 Dr. Stephen Deal DO Other Provider Active Start: October 07, 2024 Dr. Ryne Steward DO Attending Provider Active Start: October 07, 2024 Dr. Ryne Steward DO Other Provider Active Star t: October 07, 2024 Dr. Silvia Son MD Other Provider Active St art: October 07, 2024 Team Status: Active Member Role/Relationship Status Dates Dr. Elana Hickman DO Primary Care Provider Active Start: October 08, 2024 Dr. Wang Nuñez MD Emergency Provider Active Start: October 08, 2024 Dr. Stephen Deal DO Admit Provider Active Start: October 08, 2024 Dr. Stephen Deal DO Other Provider Active Start: October 08, 2024 Dr. Ryne Steward DO Attending Provider Active Start: October 08, 2024 Dr. Ryne Steward DO Other Provider Active Star t: October 08, 2024 Dr. Silvia Son MD Other Provider Active St art: October 08, 2024 Dr. Elana Davis DPM Other Provider Active Start: October 08, 2024 Team Status: Active Member Role/Relationship Status Dates Dr. Elana Hickman DO Primary Care Provider Active Start: October 09, 2024 Dr. Wang Nuñez MD Emergency Provider Active Start: October 09, 2024 Dr. Stephen Deal , DO Admit Provider Active Start: October 09, 2024 Dr. Stephen Deal DO Other Provider Active Start: October 09, 2024 Dr. Ryne Steward DO Attending Provider Active Start: October 09, 2024 Dr. Ryne Steward DO Other Provider Active Star t: October 09, 2024 Dr. Silvia Son MD Other Provider Active St art: October 09, 2024 Dr. Elana Davis DPM Other Provider Active Start: October 09, 2024 Dr. Ever Schreiber MD Other Provider Active Start: October 09, 2024 Team Status: Active Member Role/Relationship Status Dates Dr. Elana Hickman DO Primary Care Provider Active Start: October 10, 2024 Dr. Wang Nuñez MD Emergency Provider Active Start: October 10, 2024 Dr. Stephen Deal DO Admit Provider Active Start: October 10, 2024 Dr. Stephen Deal DO Other Provider Active Start: October 10, 2024 Dr. Ryne Steward DO Attending Provider Active Start: October 10, 2024 Dr. Ryne Steward DO Other Provider Active Star t: October 10, 2024 Dr. Silvia Son MD Other Provider Active St art: October 10, 2024 Dr. Elana Davis DPM Other Provider Active Start: October 10, 2024 Dr. Ever Schreiber MD Other Provider Active Start: October 10, 2024 Team Status: Active Member Role/Relationship Status Dates Dr. Elana Hickman DO Primary Care Provider Active Start: October 11, 2024 Dr. Wang Nuñez MD Emergency Provider Active Start: October 11, 2024 Dr. Stephen Deal DO Admit Provider Active Start: October 11, 2024 Dr. Stephen Deal DO Other Provider Active Start: October 11, 2024 Dr. Ryne Steward DO Attending Provider Active Start: October 11, 2024 Dr. Ryne Steward DO Other Provider Active Star t: October 11, 2024 Dr. Silvia Son MD Other Provider Active St art: October 11, 2024 Dr. Elana Davis DPM Other Provider Active Start: October 11, 2024 Dr. Ever Schreiber MD Other Provider Active Start: October 11, 2024 Team Status: Active Member Role/Relationship Status Dates Dr. Elana Hickman DO Primary care physician Active Team Status: Inactive Member Role/Relationship Status Dates Dr. Elana Hickman DO Primary care physician Active Start: September 10, 2024 End: September 10, 2024 Dr. Jeffy Morgan DPM Attending physician Active Start: September 10, 2024 End: September 10, 2024 Team Status: Inactive Member Role/Relationship Status Dates Dr. Elana Hickman DO Primary care physician Active Start: October 05, 2024 End: October 11, 2024 Dr. Wang Nuñez MD Emergency Depart ment Physician Active Start: October 05, 2024 End: October 11, 2024 Dr. Stephen Deal DO Admitting physician Active Start: October 05, 2024 End: October 11, 2024 Dr. Stephen Deal DO Nurse Practitioner Active Start: October 05, 2024 End: October 11, 2024 Dr. Ryne Steward DO Attending physician Active Start: October 05, 2024 End: October 11, 2024 Dr. Silvia Son MD Nurse Practitioner Active Start: October 05, 2024 End: October 11, 2024 Dr. Elana Davis DPM Nurse Practitioner Active Start: October 05, 2024 End: October 11, 2024 Dr. Ever Schreiber MD Nurse Practitioner Active Start: October 05, 2024 End: October 11, 2024 Team Status: Active Member Role/Relationship Status Dates Dr. Elana Hickman DO Primary care physician Active Start: October 06, 2024 Dr. Wang Nuñez MD Emergency Depart ment Physician Active Start: October 06, 2024 Dr. Stephen Deal DO Admitting physician Active Start: October 06, 2024 Dr. Stephen Deal DO Nurse Practitioner Active Start: October 06, 2024 Dr. Silvia Son MD Attending physician Active Start: October 06, 2024 Dr. Silvia Son MD Nurse Practitioner Active Start: October 06, 2024 Team Status: Active Member Role/Relationship Status Dates Dr. Elana Hickman DO Primary care physician Active Start: October 07, 2024 Dr. Wang Nuñez MD Emergency Depart ment Physician Active Start: October 07, 2024 Dr. Stephen Deal DO Admitting physician Active Start: October 07, 2024 Dr. Stephen Deal DO Nurse Practitioner Active Start: October 07, 2024 Dr. Ryne Steward DO Attending physician Active Start: October 07, 2024 Dr. Ryne Steward DO Nurse Practitioner Active Start: October 07, 2024 Dr. Silvia Son MD Nurse Practitioner Active Start: October 07, 2024 Team Status: Active Member Role/Relationship Status Dates Dr. Elana Hickman DO Primary care physician Active Start: October 08, 2024 Dr. Wang Nuñez MD Emergency Depart ment Physician Active Start: October 08, 2024 Dr. Stephen Deal DO Admitting physician Active Start: October 08, 2024 Dr. Stephen Deal DO Nurse Practitioner Active Start: October 08, 2024 Dr. Ryne Steward DO Attending physician Active Start: October 08, 2024 Dr. Ryne Steward DO Nurse Practitioner Active Start: October 08, 2024 Dr. Silvia Son MD Nurse Practitioner Active Start: October 08, 2024 Dr. Elana Davis DPM Nurse Practitioner Active Start: October 08, 2024 Team Status: Active Member Role/Relationship Status Dates Dr. Elana Hickman DO Primary care physician Active Start: October 09, 2024 Dr. Wang Nuñez MD Emergency Depart ment Physician Active Start: October 09, 2024 Dr. Stephen Deal DO Admitting physician Active Start: October 09, 2024 Dr. Stephen Deal DO Nurse Practitioner Active Start: October 09, 2024 Dr. Ryne Steward DO Attending physician Active Start: October 09, 2024 Dr. Ryne Steward DO Nurse Practitioner Active Start: October 09, 2024 Dr. Silvia Son MD Nurse Practitioner Active Start: October 09, 2024 Dr. Elana Davis , LEEROY Nurse Practitioner Active Start: October 09, 2024 Dr. Ever Schreiber MD Nurse Practitioner Active Start: October 09, 2024 Team Status: Active Member Role/Relationship Status Dates Dr. Vito Daley MD Attending physician Active Start: October 09, 2024 Dr. Ryne Steward DO Referring Provider Active Start: October 09, 2024 Team Status: Active Member Role/Relationship Status Dates Dr. Elana Hickman DO Primary care physician Active Start: October 10, 2024 Dr. Esau Hensley MD Attending physician Active Start: October 10, 2024 Dr. Donny Cheng MD Referring Provider Active Start: October 10, 2024 Team Status: Active Member Role/Relationship Status Dates Dr. Elana Hickman DO Primary care physician Active Start: October 10, 2024 Dr. Wang Nuñez MD Emergency Depart ment Physician Active Start: October 10, 2024 Dr. Stephen Deal DO Admitting physician Active Start: October 10, 2024 Dr. Stephen Deal DO Nurse Practitioner Active Start: October 10, 2024 Dr. Ryne Stewadr DO Attending physician Active Start: October 10, 2024 Dr. Ryne Steward DO Nurse Practitioner Active Start: October 10, 2024 Dr. Silvia Son MD Nurse Practitioner Active Start: October 10, 2024 Dr. Elana Davis DPM Nurse Practitioner Active Start: October 10, 2024 Dr. Ever Schreiber MD Nurse Practitioner Active Start: October 10, 2024 Team Status: Active Member Role/Relationship Status Dates Dr. Elana Hickman DO Primary care physician Active Start: October 11, 2024 Dr. Wang Nuñez MD Emergency Depart ment Physician Active Start: October 11, 2024 Dr. Stephen Deal DO Admitting physician Active Start: October 11, 2024 Dr. Stephen Deal DO Nurse Practitioner Active Start: October 11, 2024 Dr. Ryne Steward DO Attending physician Active Start: October 11, 2024 Dr. Ryne Steward DO Nurse Practitioner Active Start: October 11, 2024 Dr. Silvia Son MD Nurse Practitioner Active Start: October 11, 2024 Dr. Elana Davis DPM Nurse Practitioner Active Start: October 11, 2024 Dr. Ever Schreiber MD Nurse Practitioner Active Start: October 11, 2024 Team Status: Inactive Member Role/Relationship Status Dates Dr. Elana Hickman DO Primary care physician Active Start: October 11, 2024 End: November 12, 2024 Dr. Ion Vega MD Admitting physician Active Start: October 11, 2024 End: November 12, 2024 Dr. Ion Vega MD Attending physician Active Start: October 11, 2024 End: November 12, 2024 Dr. Ion Vega MD Referring Provider Active Start: October 11, 2024 End: November 12, 2024 Dr. Ever Schreiber MD Nurse Practitioner Active Start: October 11, 2024 End: November 12, 2024 Dr. Elana Davis DPM Nurse Practitioner Active Start: October 11, 2024 End: November 12, 2024 Care Team (unrecognized sect ion and content) Care Team Personnel Name: Timmy Scanning Tech Marcela PT Position: P3 Scheduling - Lockstitch Waistband Setter Advanced Member Role: Other Name: ELANA HICKMAN DO Position: P4 Physician - Primary Care Member Role: Primary Care Physician Address: Address: [address], [place] [address] Care Team Related Persons Name: TAMMI JEFFERS Address: Home [address], [place] [id number] [place] Address: [facility] [address], [place] [id number] Goals (unrecognized section and content) Goals may be documented in a n alternate section (unrecognized sect ion and content) No Status Records FoundNo Status Records FoundNo Status Records Found INFORMATION SOURCE (unrecogn ized section and content) DATE CREATED AUTHOR 02/11/2023 [facility] DATE CREATED AUTHOR AUTHOR'S ORGANIZ ATION 12/09/2024 [facility] DATE CREATED AUTHOR AUTHOR'S ORGANIZ ATION 12/18/[address] [facility] FOR RECORDS PERTAINING TO PATIENTS WHO ARE [...] BE BASED ON THE PRIMARY CLINICAL RECORDS. [employer] provides no warranty or guarantee of the accuracy or completeness of information in this document.
== END | disposition home or self-care (01) ==
PROVIDERS: PCP Student in an Organized Health Care Education/Training Program; Referring Provider Podiatrist Foot & Ankle Surgery; Visit Provider Podiatrist Foot & Ankle Surgery
DX: L97.319 Non-pressure chronic ulcer of right ankle with unspecified severity (principal)
CPT/HCPCS: 87070; 87075; 87077; 87186; 87205